=== PATIENT | female | born 1955 | race Caucasian/White ===

== ENCOUNTER 2022-10-22 00:59 | Inpatient (IN) ==
--- NOTE | 2022-10-22 01:17 | Emergency Department Note ---
History of Present Illness General Chief complaint: Unresponsive Stated complaint: UNRESPONSIVE Time Seen by Provider: 10/22/22 01:05 History of Present Illness 67-year-old female presents emergency department via EMS reportedly has been having explosive diarrhea today and states she was going to the bathroom for the 15th time today and fell over her walker on the way back to her bed. Patient was found to be hypotensive and reportedly altered by EMS. Patient does admit to drinking alcohol she states that she drinks alcohol daily. Patient denies any bloody stools vomiting of blood. Patient denies chest pain shortness of breath abdominal pain. There are no other mitigating or alleviating factors Home Medications Medication Instructions Recorded Confirmed Type hydrochlorothiazide 25 mg tablet 25 mg PO DAILY 10/22/22 10/22/22 History quetiapine 100 mg tablet 50 mg PO DAILY 10/22/22 10/22/22 History tramadol 50 mg tablet 50 mg PO UD PRN Pain 10/22/22 10/22/22 History Allergies Allergy/AdvReac Type Severity Reaction Status Date / Time No Known Allergies Allergy Unverified 01/09/14 03:26 Past Med/Surg History Medical History Cholelithiasis No pertinent family history Surgical History No pertinent past surgical history Social History Smoking Status: Unknown if ever smoked Feels Safe at Home: Yes Immunizations: Social history positive for alcohol Review of Systems A total of 10 systems reviewed and were otherwise negative Constitutional: + chills and + fatigue Respiratory: no cough Cardiovascular: no chest pain Gastrointestinal: + nausea and + diarrhea/loose stools; no abdominal pain Physical Exam Vital Signs Vital Signs - 24 hr 10/22/22 01:17 10/22/22 01:17 10/22/22 01:05 Temperature 36.6 C Temperature Source Oral Pulse Rate 88 101 H Pulse Rate [Finger] Pulse Rate from SpO2 Sensor 101 H Respiratory Rate 16 18 Blood Pressure 74/39 L Blood Pressure [Right Arm] Blood Pressure Mean 50 Blood Pressure Mean [Right Arm] Pulse Oximetry 91 98 Oxygen Delivery Method Room Air Room Air Sepsis Recent Fever Within 48 Hours Yes Sepsis New/Unexplained Change in Mental Status Yes Sepsis Action Taken by Nursing Physician Notified 10/22/22 01:09 10/22/22 01:09 10/22/22 01:10 Temperature Temperature Source Pulse Rate 99 H Pulse Rate [Finger] Pulse Rate from SpO2 Sensor Respiratory Rate 20 Blood Pressure 68/41 L 69/42 L Blood Pressure [Right Arm] Blood Pressure Mean 50 51 Blood Pressure Mean [Right Arm] Pulse Oximetry Oxygen Delivery Method Sepsis Recent Fever Within 48 Hours Sepsis New/Unexplained Change in Mental Status Sepsis Action Taken by Nursing 10/22/22 01:10 10/22/22 01:14 10/22/22 01:14 Temperature Temperature Source Pulse Rate 98 H 99 H Pulse Rate [Finger] Pulse Rate from SpO2 Sensor 95 H 100 H Respiratory Rate 20 20 Blood Pressure 62/41 L Blood Pressure [Right Arm] Blood Pressure Mean 48 Blood Pressure Mean [Right Arm] Pulse Oximetry 92 97 Oxygen Delivery Method Sepsis Recent Fever Within 48 Hours Sepsis New/Unexplained Change in Mental Status Sepsis Action Taken by Nursing 10/22/22 01:15 10/22/22 01:15 10/22/22 01:17 Temperature Temperature Source Pulse Rate 98 H Pulse Rate [Finger] Pulse Rate from SpO2 Sensor 98 H Respiratory Rate 19 Blood Pressure 62/38 L 63/41 L Blood Pressure [Right Arm] Blood Pressure Mean 46 48 Blood Pressure Mean [Right Arm] Pulse Oximetry 99 Oxygen Delivery Method Sepsis Recent Fever Within 48 Hours Sepsis New/Unexplained Change in Mental Status Sepsis Action Taken by Nursing 10/22/22 01:17 10/22/22 01:20 10/22/22 01:10 Temperature Temperature Source Pulse Rate 97 H 99 H 101 H Pulse Rate [Finger] Pulse Rate from SpO2 Sensor 97 H 98 H Respiratory Rate 19 17 Blood Pressure Blood Pressure [Right Arm] Blood Pressure Mean Blood Pressure Mean [Right Arm] Pulse Oximetry 94 91 Oxygen Delivery Method Sepsis Recent Fever Within 48 Hours Sepsis New/Unexplained Change in Mental Status Sepsis Action Taken by Nursing 10/22/22 02:33 10/22/22 02:51 10/22/22 03:00 Temperature Temperature Source Pulse Rate Pulse Rate [Finger] 102 H 105 H 103 H Pulse Rate from SpO2 Sensor Respiratory Rate 20 20 16 Blood Pressure Blood Pressure [Right Arm] 86/40 L 82/42 L 102/54 L Blood Pressure Mean Blood Pressure Mean [Right Arm] 55 55 70 Pulse Oximetry 92 96 Oxygen Delivery Method Room Air Room Air Room Air Sepsis Recent Fever Within 48 Hours Sepsis New/Unexplained Change in Mental Status Sepsis Action Taken by Nursing 10/22/22 02:45 10/22/22 03:00 10/22/22 03:17 Temperature Temperature Source Pulse Rate 104 H 103 H 101 H Pulse Rate [Finger] Pulse Rate from SpO2 Sensor Respiratory Rate 21 18 18 Blood Pressure 82/49 L 102/54 L 80/40 L Blood Pressure [Right Arm] Blood Pressure Mean 60 70 53 Blood Pressure Mean [Right Arm] Pulse Oximetry 92 92 91 Oxygen Delivery Method Room Air Room Air Room Air Sepsis Recent Fever Within 48 Hours Sepsis New/Unexplained Change in Mental Status Sepsis Action Taken by Nursing 10/22/22 03:30 10/22/22 03:46 Temperature Temperature Source Pulse Rate 104 H 108 H Pulse Rate [Finger] Pulse Rate from SpO2 Sensor Respiratory Rate 20 19 Blood Pressure 98/49 L 100/30 L Blood Pressure [Right Arm] Blood Pressure Mean 65 53 Blood Pressure Mean [Right Arm] Pulse Oximetry 99 96 Oxygen Delivery Method Room Air Room Air Sepsis Recent Fever Within 48 Hours Sepsis New/Unexplained Change in Mental Status Sepsis Action Taken by Nursing GENERAL: Patient is awake alert; ill-appearing, hypotensive EYES: The conjunctivae are clear. The pupils are round and reactive. EARS, NOSE, MOUTH AND THROAT: The nose is without any evidence of any deformity. Mucous membranes are moist. Tongue is midline. Head exam reveals no signs of trauma NECK: The neck is nontender and supple. RESPIRATORY: Normal respiratory effort is noted there is no evidence of wheezing rhonchi or rales CARDIOVASCULAR: Regular rate and rhythm noted there no murmurs rubs or gallops normal S1 normal S2. GASTROINTESTINAL: The abdomen is soft. Abdomen is nontender. BACK: No midline tenderness or or step-off noted range of motion in flexion extension as well as rotation no signs of muscle spasm noted MUSCULOSKELETAL/EXTREMITIES: There is no evidence of gross deformity full range of motion is noted in the hips and shoulders. SKIN: Patient is pale NEUROLOGIC: Patient is awake alert and oriented x3 strength is symmetric Procedures Central Line Placement Right Femoral: Time Out Performed: Yes Patient Placed on Monitor/Pulse Ox: Yes Prep: mask, gown and gloves Central Line Prep: Chlorhexidine scrub Local Anesthetic: lidocaine 2% Amount of anesthesia used (mL): 10 Ultrasound Used for Placement: No Central Line Lumen Inserted: triple Post Procedure: sutured in place, good blood return, all ports aspirated, flushed, capped and sterile dressing applied Patient Tolerated Procedure: well Complications: none Additional Comments: Patient verbally consented to central line, 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 Patient's blood pressure did improve after IV fluids. Time: 03:40 Consultations Consultation #1: [facility], [facility], near syncope Time: 03:41 Administered Medications Discontinued Medications Sodium Chloride (Nss 1000ml) 1,000 mls @ 999 mls/hr IV .[id number] BARBARA Stop: 10/22/22 03:15 Last Infusion: 10/22/22 03:23 Dose: 0 mls/hr Documented By: Admin: 10/22/22 02:25 Dose: 999 mls/hr Documented By: YURI(2) Infusion: 10/22/22 02:25 Dose: 0 mls/hr Documented By: NURYW(2) Admin: 10/22/22 01:23 Dose: 999 mls/hr Documented By: YURI(2) Piperacillin Sod/Tazobactam Sod (Zosyn) 4.5 gm in 120 mls @ 240 mls/hr IV NOW ONE Stop: 10/22/22 02:31 Last Infusion: 10/22/22 02:54 Dose: 0 mls/hr Documented By: Admin: 10/22/22 02:27 Dose: 240 mls/hr Documented By: ASW Ondansetron HCl (Ondansetron Inj 2 Mg/Ml 2 Ml Vial) Confirm Administered Dose 4 mg .ROUTE .STK-MED ONE Stop: 10/22/22 02:57 Last Admin: 10/22/22 03:23 Dose: 4 mg Documented By: ASW Critical Care Time Critical Care Time: Yes Total Critical Care Time: 45 I have personally spent greater than 45 minutes of critical care time in the direct management of this patient. This includes bedside care, interpretation of diagnostic studies, and testing, discussion with consultants, patient, and family members, and other required patient management activities. These minutes are in excess of all separately billable procedures. Medical Decision Making Medical Records Attestation: I reviewed the patient's medical records. Home Medications Current Medication List: was personally reviewed by me Laboratory Data Attestation: I reviewed the patient's lab results. Patient has an elevated lactate, has a low bicarb has not low pH consistent with lactic acidosis and sepsis dehydration 10/22/22 01:27 10/22/22 01:27 Lab Results 10/22/22 10/22/22 10/22/22 Range/Units 01:12 01:27 01:27 WBC 5.84 (4.8-10.8) K/ul RBC 3.17 L (4.20-5.40) M/uL Hgb 9.8 L (12.0-16.0) g/dl Hct 30.8 L (37.0-47.0) % MCV 97.2 (80.0-100.0) fL MCH 30.9 (25.0-34.0) pg MCHC 31.8 L (32.0-36.0) g/dL RDW Std Deviation 70.4 H (36.4-46.3) fL RDW Coeff of Cate 19.7 H (11.5-14.5) % Plt Count 204 (130-400) K/uL MPV 9.4 (9.4-12.4) fL Immature Gran % (Auto) 0.5 % Neut % (Auto) 74.2 % Lymph % (Auto) 10.1 % [place] % (Auto) 12.2 % Eos % (Auto) 2.7 % Baso % (Auto) 0.3 % Neut # (Auto) 4.33 (1.40-6.50) K/uL Lymph # (Auto) 0.59 L (1.2-3.4) K/uL [place] # (Auto) 0.71 H (0.11-0.59) K/uL Eos # (Auto) 0.16 (0-0.50) K/uL Baso # (Auto) 0.02 (0-0.2) K/uL Immature Gran # (Auto) 0.03 (0.01-0.20) K/uL PT 11.4 (9.0-12.0) Seconds INR 1.1 (0.9-1.1) APTT 21.2 (21.0-31.0) Seconds PTT Ratio 0.8 VBG pH (7.36-7.41) VBG pCO2 (38-50) mmHg VBG pO2 mmHg VBG HCO3 mmol/L VBG O2 Saturation % VBG Base Excess mEq/L Sodium (136-145) mmol/L Potassium Chloride (98-107) mmol/L Carbon Dioxide (21-32) mmol/L Anion Gap (3-11) BUN (6-23) mg/dl Creatinine (0.6-1.2) mg/dl Est Cr Clr Drug Dosing ml/min Est GFR ( Amer) ml/min Est GFR (Non-Af Amer) ml/min BUN/Creatinine Ratio (10-20) Glucose (70-99(Fasting)) mg/dl POC Glucose 81 (70-99) mg/dl Lactate (0.4-2.0) mmol/L Calcium (8.6-10.3) mg/dl Magnesium (1.7-2.4) mg/dl Total Bilirubin (0.2-1.0) mg/dl Direct Bilirubin AST ALT (7-52) U/L Alkaline Phosphatase (34-104) U/L Troponin I High Sens (0-14) pg/ml Total Protein (6.0-8.3) gm/dl Albumin (3.4-5.0) gm/dl Procalcitonin (0-0.5) ng/ml Urine Color Urine Appearance (Clear) Urine pH (4.5-7.5) Ur Specific Watts (1.000-1.030) Urine Protein (Negative) Urine Glucose (UA) (Negative) Urine Ketones (Negative) Urine Blood (Negative) Urine Nitrite (Negative) Urine Bilirubin (Negative) Urine Urobilinogen (Negative) Ur Leukocyte Esterase (Negative) Urine WBC (Auto) (0-5) /hpf Urine RBC (Auto) (0-4) /hpf U Hyaline Cast (Auto) (0-5) /lpf U Epithel Cells (Auto) (0-5) /lpf Urine Bacteria (Auto) (Negative) Stl C. diff Tox B Gene (Neg) Ethyl Alcohol mg/dL (<10.0) mg/dl SARS-CoV-2, RNA, NAAT (NEGATIVE) 10/22/22 10/22/22 10/22/22 Range/Units 01:27 01:27 01:27 WBC (4.8-10.8) K/ul RBC (4.20-5.40) M/uL Hgb (12.0-16.0) g/dl Hct (37.0-47.0) % MCV (80.0-100.0) fL MCH (25.0-34.0) pg MCHC (32.0-36.0) g/dL RDW Std Deviation (36.4-46.3) fL RDW Coeff of Cate (11.5-14.5) % Plt Count (130-400) K/uL MPV (9.4-12.4) fL Immature Gran % (Auto) % Neut % (Auto) % Lymph % (Auto) % [place] % (Auto) % Eos % (Auto) % Baso % (Auto) % Neut # (Auto) (1.40-6.50) K/uL Lymph # (Auto) (1.2-3.4) K/uL [place] # (Auto) (0.11-0.59) K/uL Eos # (Auto) (0-0.50) K/uL Baso # (Auto) (0-0.2) K/uL Immature Gran # (Auto) (0.01-0.20) K/uL PT (9.0-12.0) Seconds INR (0.9-1.1) APTT (21.0-31.0) Seconds PTT Ratio VBG pH (7.36-7.41) VBG pCO2 (38-50) mmHg VBG pO2 mmHg VBG HCO3 mmol/L VBG O2 Saturation % VBG Base Excess mEq/L Sodium 135 L (136-145) mmol/L Potassium TNP Chloride 98 (98-107) mmol/L Carbon Dioxide 8 L* (21-32) mmol/L Anion Gap 29 H (3-11) BUN 21 (6-23) mg/dl Creatinine 0.91 (0.6-1.2) mg/dl Est Cr Clr Drug Dosing 56.3 ml/min Est GFR ( Amer) 75.7 ml/min Est GFR (Non-Af Amer) 65.3 ml/min BUN/Creatinine Ratio 23.1 H (10-20) Glucose 86 (70-99(Fasting)) mg/dl POC Glucose (70-99) mg/dl Lactate (0.4-2.0) mmol/L Calcium 7.5 L (8.6-10.3) mg/dl Magnesium 1.8 (1.7-2.4) mg/dl Total Bilirubin 1.2 H (0.2-1.0) mg/dl Direct Bilirubin TNP AST TNP ALT 32 (7-52) U/L Alkaline Phosphatase 87 (34-104) U/L Troponin I High Sens 9.0 (0-14) pg/ml Total Protein 6.1 (6.0-8.3) gm/dl Albumin 3.7 (3.4-5.0) gm/dl Procalcitonin 0.34 (0-0.5) ng/ml Urine Color Urine Appearance (Clear) Urine pH (4.5-7.5) Ur Specific Watts (1.000-1.030) Urine Protein (Negative) Urine Glucose (UA) (Negative) Urine Ketones (Negative) Urine Blood (Negative) Urine Nitrite (Negative) Urine Bilirubin (Negative) Urine Urobilinogen (Negative) Ur Leukocyte Esterase (Negative) Urine WBC (Auto) (0-5) /hpf Urine RBC (Auto) (0-4) /hpf U Hyaline Cast (Auto) (0-5) /lpf U Epithel Cells (Auto) (0-5) /lpf Urine Bacteria (Auto) (Negative) Stl C. diff Tox B Gene (Neg) Ethyl Alcohol mg/dL 96.1 H (<10.0) mg/dl SARS-CoV-2, RNA, NAAT (NEGATIVE) 10/22/22 10/22/22 10/22/22 Range/Units 01:35 02:36 03:17 WBC (4.8-10.8) K/ul RBC (4.20-5.40) M/uL Hgb (12.0-16.0) g/dl Hct (37.0-47.0) % MCV (80.0-100.0) fL MCH (25.0-34.0) pg MCHC (32.0-36.0) g/dL RDW Std Deviation (36.4-46.3) fL RDW Coeff of Cate (11.5-14.5) % Plt Count (130-400) K/uL MPV (9.4-12.4) fL Immature Gran % (Auto) % Neut % (Auto) % Lymph % (Auto) % [place] % (Auto) % Eos % (Auto) % Baso % (Auto) % Neut # (Auto) (1.40-6.50) K/uL Lymph # (Auto) (1.2-3.4) K/uL [place] # (Auto) (0.11-0.59) K/uL Eos # (Auto) (0-0.50) K/uL Baso # (Auto) (0-0.2) K/uL Immature Gran # (Auto) (0.01-0.20) K/uL PT (9.0-12.0) Seconds INR (0.9-1.1) APTT (21.0-31.0) Seconds PTT Ratio VBG pH (7.36-7.41) VBG pCO2 (38-50) mmHg VBG pO2 mmHg VBG HCO3 mmol/L VBG O2 Saturation % VBG Base Excess mEq/L Sodium (136-145) mmol/L Potassium 4.5 Chloride (98-107) mmol/L Carbon Dioxide (21-32) mmol/L Anion Gap (3-11) BUN (6-23) mg/dl Creatinine (0.6-1.2) mg/dl Est Cr Clr Drug Dosing ml/min Est GFR ( Amer) ml/min Est GFR (Non-Af Amer) ml/min BUN/Creatinine Ratio (10-20) Glucose (70-99(Fasting)) mg/dl POC Glucose (70-99) mg/dl Lactate 6.9 H* (0.4-2.0) mmol/L Calcium (8.6-10.3) mg/dl Magnesium (1.7-2.4) mg/dl Total Bilirubin (0.2-1.0) mg/dl Direct Bilirubin 0.4 H AST 52 H ALT (7-52) U/L Alkaline Phosphatase (34-104) U/L Troponin I High Sens (0-14) pg/ml Total Protein (6.0-8.3) gm/dl Albumin (3.4-5.0) gm/dl Procalcitonin (0-0.5) ng/ml Urine Color Dark Yellow Urine Appearance Clear (Clear) Urine pH 5.5 (4.5-7.5) Ur Specific Watts 1.018 (1.000-1.030) Urine Protein Negative (Negative) Urine Glucose (UA) Negative (Negative) Urine Ketones 3+ H (Negative) Urine Blood Negative (Negative) Urine Nitrite Negative (Negative) Urine Bilirubin 1+ H (Negative) Urine Urobilinogen Negative (Negative) Ur Leukocyte Esterase Trace H (Negative) Urine WBC (Auto) 1-5 (0-5) /hpf Urine RBC (Auto) 0-4 (0-4) /hpf U Hyaline Cast (Auto) 10-30 H (0-5) /lpf U Epithel Cells (Auto) >30 H (0-5) /lpf Urine Bacteria (Auto) Negative (Negative) Stl C. diff Tox B Gene (Neg) Ethyl Alcohol mg/dL (<10.0) mg/dl SARS-CoV-2, RNA, NAAT (NEGATIVE) 10/22/22 10/22/22 10/22/22 Range/Units 03:17 03:18 03:28 WBC (4.8-10.8) K/ul RBC (4.20-5.40) M/uL Hgb (12.0-16.0) g/dl Hct (37.0-47.0) % MCV (80.0-100.0) fL MCH (25.0-34.0) pg MCHC (32.0-36.0) g/dL RDW Std Deviation (36.4-46.3) fL RDW Coeff of Cate (11.5-14.5) % Plt Count (130-400) K/uL MPV (9.4-12.4) fL Immature Gran % (Auto) % Neut % (Auto) % Lymph % (Auto) % [place] % (Auto) % Eos % (Auto) % Baso % (Auto) % Neut # (Auto) (1.40-6.50) K/uL Lymph # (Auto) (1.2-3.4) K/uL [place] # (Auto) (0.11-0.59) K/uL Eos # (Auto) (0-0.50) K/uL Baso # (Auto) (0-0.2) K/uL Immature Gran # (Auto) (0.01-0.20) K/uL PT (9.0-12.0) Seconds INR (0.9-1.1) APTT (21.0-31.0) Seconds PTT Ratio VBG pH 7.10 L (7.36-7.41) VBG pCO2 24 L (38-50) mmHg VBG pO2 49 mmHg VBG HCO3 8 mmol/L VBG O2 Saturation 69.9 % VBG Base Excess -20.6 mEq/L Sodium (136-145) mmol/L Potassium Chloride (98-107) mmol/L Carbon Dioxide (21-32) mmol/L Anion Gap (3-11) BUN (6-23) mg/dl Creatinine (0.6-1.2) mg/dl Est Cr Clr Drug Dosing ml/min Est GFR ( Amer) ml/min Est GFR (Non-Af Amer) ml/min BUN/Creatinine Ratio (10-20) Glucose (70-99(Fasting)) mg/dl POC Glucose (70-99) mg/dl Lactate 6.8 H* (0.4-2.0) mmol/L Calcium (8.6-10.3) mg/dl Magnesium (1.7-2.4) mg/dl Total Bilirubin (0.2-1.0) mg/dl Direct Bilirubin AST ALT (7-52) U/L Alkaline Phosphatase (34-104) U/L Troponin I High Sens (0-14) pg/ml Total Protein (6.0-8.3) gm/dl Albumin (3.4-5.0) gm/dl Procalcitonin (0-0.5) ng/ml Urine Color Urine Appearance (Clear) Urine pH (4.5-7.5) Ur Specific Watts (1.000-1.030) Urine Protein (Negative) Urine Glucose (UA) (Negative) Urine Ketones (Negative) Urine Blood (Negative) Urine Nitrite (Negative) Urine Bilirubin (Negative) Urine Urobilinogen (Negative) Ur Leukocyte Esterase (Negative) Urine WBC (Auto) (0-5) /hpf Urine RBC (Auto) (0-4) /hpf U Hyaline Cast (Auto) (0-5) /lpf U Epithel Cells (Auto) (0-5) /lpf Urine Bacteria (Auto) (Negative) Stl C. diff Tox B Gene (Neg) Ethyl Alcohol mg/dL (<10.0) mg/dl SARS-CoV-2, RNA, NAAT NEGATIVE (NEGATIVE) 10/22/22 Range/Units 04:26 WBC (4.8-10.8) K/ul RBC (4.20-5.40) M/uL Hgb (12.0-16.0) g/dl Hct (37.0-47.0) % MCV (80.0-100.0) fL MCH (25.0-34.0) pg MCHC (32.0-36.0) g/dL RDW Std Deviation (36.4-46.3) fL RDW Coeff of Cate (11.5-14.5) % Plt Count (130-400) K/uL MPV (9.4-12.4) fL Immature Gran % (Auto) % Neut % (Auto) % Lymph % (Auto) % [place] % (Auto) % Eos % (Auto) % Baso % (Auto) % Neut # (Auto) (1.40-6.50) K/uL Lymph # (Auto) (1.2-3.4) K/uL [place] # (Auto) (0.11-0.59) K/uL Eos # (Auto) (0-0.50) K/uL Baso # (Auto) (0-0.2) K/uL Immature Gran # (Auto) (0.01-0.20) K/uL PT (9.0-12.0) Seconds INR (0.9-1.1) APTT (21.0-31.0) Seconds PTT Ratio VBG pH (7.36-7.41) VBG pCO2 (38-50) mmHg VBG pO2 mmHg VBG HCO3 mmol/L VBG O2 Saturation % VBG Base Excess mEq/L Sodium (136-145) mmol/L Potassium Chloride (98-107) mmol/L Carbon Dioxide (21-32) mmol/L Anion Gap (3-11) BUN (6-23) mg/dl Creatinine (0.6-1.2) mg/dl Est Cr Clr Drug Dosing ml/min Est GFR ( Amer) ml/min Est GFR (Non-Af Amer) ml/min BUN/Creatinine Ratio (10-20) Glucose (70-99(Fasting)) mg/dl POC Glucose (70-99) mg/dl Lactate (0.4-2.0) mmol/L Calcium (8.6-10.3) mg/dl Magnesium (1.7-2.4) mg/dl Total Bilirubin (0.2-1.0) mg/dl Direct Bilirubin AST ALT (7-52) U/L Alkaline Phosphatase (34-104) U/L Troponin I High Sens (0-14) pg/ml Total Protein (6.0-8.3) gm/dl Albumin (3.4-5.0) gm/dl Procalcitonin (0-0.5) ng/ml Urine Color Urine Appearance (Clear) Urine pH (4.5-7.5) Ur Specific Watts (1.000-1.030) Urine Protein (Negative) Urine Glucose (UA) (Negative) Urine Ketones (Negative) Urine Blood (Negative) Urine Nitrite (Negative) Urine Bilirubin (Negative) Urine Urobilinogen (Negative) Ur Leukocyte Esterase (Negative) Urine WBC (Auto) (0-5) /hpf Urine RBC (Auto) (0-4) /hpf U Hyaline Cast (Auto) (0-5) /lpf U Epithel Cells (Auto) (0-5) /lpf Urine Bacteria (Auto) (Negative) Stl C. diff Tox B Gene Negative Cdiff Gene (Neg) Ethyl Alcohol mg/dL (<10.0) mg/dl SARS-CoV-2, RNA, NAAT (NEGATIVE) Imaging Data Attestation: I personally reviewed and interpreted this imaging study as follows: My Impression: CT of the brain interpreted by me as negative intracranial hemorrhage Radiologist's Impression: Head CT 10/22/22 01:11 Exam(s): CT HEAD Without Contrast EXAM: CT Head Without Intravenous Contrast CLINICAL HISTORY: Reason for exam: fall. TECHNIQUE: Axial computed tomography images of the head/brain without intravenous contrast. Automated exposure control was utilized for the study. A dose lowering technique was utilized adhering to the principles of ALARA. COMPARISON: CT head performed 09/27/22 FINDINGS: Limitations: Exam limited due to lack of coronal and sagittal reformatted images. Within this constraint: Brain: No acute intracranial hemorrhage, mass-effect or midline shift. No major vascular territory infarct. Mild white matter disease. No edema. Ventricles: No ventriculomegaly. Bones/joints: No acute fracture. Soft tissues: Unremarkable. Sinuses: Unremarkable as visualized. No acute sinusitis. Mastoid air cells: Unremarkable as visualized. No mastoid effusion. IMPRESSION: Exam limited due to lack of coronal and sagittal reformatted images. Within this constraint: No acute intracranial pathology. Electronically signed by: Home Villegas M.D. 10/22/22 05:26 AM ECG Data Attestation: I personally reviewed and interpreted this ECG as follows: Additional Comments: EKG interpreted by me sinus tachycardia rate of [address]-T change poor baseline no obvious ST segment elevation or depression Telemetry was ordered by me, interpreted as sinus tachycardia rate of 101 Blood Pressure Blood Pressure Findings: Low blood pressure MDM Narrative Medical decision making differential diagnosis includes syncope, near syncope, vasovagal syncope, infectious diarrhea, electrolyte abnormality, dehydration, trauma, sepsis Plan is to check labs, CTs, IV hydrate EMS report was reviewed by me External medical records were reviewed by me Patient was started on IV fluids, patient was started on IV antibiotics empirically, patient is hypotensive, patient could be in septic shock, patient had a central line placed by me, the case was discussed with the [facility] hospitalist for admission. Patient has significant dehydration likely due to alcohol and diarrhea. Impression & Plan Syncope, Sepsis, Diarrhea, Alcohol intoxication Discharge Plan Visit Data Chief Complaint: Unresponsive Stated Complaint: UNRESPONSIVE ED Provider: Pardeep Palafox Discharge Problem: Syncope, Sepsis, Diarrhea, Alcohol intoxication Patient Disposition: Admitted As Inpatient Forms Stand Alone Forms: [facility] Prescriptions Prescriptions: No Action tramadol 50 mg tablet 50 mg PO UD PRN (Reason: Pain) quetiapine 100 mg tablet 50 mg PO DAILY hydrochlorothiazide 25 mg tablet 25 mg PO DAILY Referrals Referrals: PCP,NO [Primary Care Provider] -
[2022-10-22] MEDS: SODIUM CHLORIDE 0.9% 1000ML 1,000 ML IV SCH ×2 (01:23→02:25)
[2022-10-22 01:56] LABS: Basophils # (auto) 0.02 K/uL (0-0.2); Basophils % (auto) 0.3 %; Eosinophils # (auto) 0.16 K/uL (0-0.50); Eosinophils % (auto) 2.7 %; Hematocrit (blood only) 30.8 % (37.0-47.0); Hemoglobin 9.8 g/dl (12.0-16.0); Immature Granulocytes # (auto) 0.03 K/uL (0.01-0.20); Immature Granulocytes % (auto) 0.5 %; Lymphocytes # (auto) 0.59 K/uL (1.2-3.4); Lymphocytes % (auto) 10.1 %; Mean Corpuscular Hemoglobin 30.9 pg (25.0-34.0); Mean Corpuscular Hgb Conc 31.8 g/dL (32.0-36.0); Mean Corpuscular Volume 97.2 fL (80.0-100.0); Mean Platelet Volume 9.4 fL (9.4-12.4); Monocytes # (auto) 0.71 K/uL (0.11-0.59); Monocytes % (auto) 12.2 %; Neutrophils # (auto) 4.33 K/uL (1.40-6.50); Neutrophils % (auto) 74.2 %; Platelet Count 204 K/uL (130-400); RDW Coefficient of Variation 19.7 % (11.5-14.5); RDW Standard Deviation 70.4 fL (36.4-46.3); Red Blood Count 3.17 M/uL (4.20-5.40); White Blood Count 5.84 K/ul (4.8-10.8)
[2022-10-22] MEDS ORDERED: PIPERACILLIN/TAZOBACTAM 4.5 GM/120 ML BAG IV ONE (02:02)
[2022-10-22 02:19] LABS: Alanine Aminotransferase 32 U/L (7-52); Albumin Level 3.7 gm/dl (3.4-5.0); Alkaline Phosphatase 87 U/L (34-104); Anion Gap 29 (3-11); BUN Creatinine Ratio 23.1 (10-20); Bilirubin,Total 1.2 mg/dl (0.2-1.0); Blood Urea Nitrogen 21 mg/dl (6-23); Calcium 7.5 mg/dl (8.6-10.3); Carbon Dioxide 8 mmol/L (21-32); Chloride 98 mmol/L (98-107); Creatinine Clr Calc Pharmacy 56.3 ml/min; Est GFR (African American) 75.7 ml/min; Est GFR (Non-African American) 65.3 ml/min; Glucose 86 mg/dl (70-99(Fasting)); Magnesium 1.8 mg/dl (1.7-2.4); Sodium 135 mmol/L (136-145); Total Protein 6.1 gm/dl (6.0-8.3)
[2022-10-22 02:53] LABS: Appearance Urine Clear (Clear); Bacteria Urine Automated Negative (Negative); Blood Urine Negative (Negative); Color Urine Dark Yellow; Epithelial Cell Urine Auto >30 /lpf (0-5); Glucose Urine UA Negative (Negative); Ketones Urine 3+ (Negative); Leukocyte Esterase Urine Trace (Negative); Nitrite Urine Negative (Negative); Protein Urine Negative (Negative); RBC Urine Automated 0-4 /hpf (0-4); Specific Gravity Urine 1.018 (1.000-1.030); Urobilinogen Urine Negative (Negative); pH Urine 5.5 (4.5-7.5)
[2022-10-22 02:53] LABS: INR 1.1 (0.9-1.1); Partial Thromboplastin Ratio 0.8; Partial Thromboplastin Time 21.2 Seconds (21.0-31.0); Prothrombin Time 11.4 Seconds (9.0-12.0)
[2022-10-22 02:56] LABS: Bilirubin Urine 1+ (Negative)
[2022-10-22] MEDS ORDERED: ONDANSETRON INJ 2 MG/ML 2 ML VIAL ONE (02:56)
[2022-10-22 03:30] LABS: Base Excess VBG -20.6 mEq/L; HCO3 VBG 8 mmol/L; Oxygen Saturation VBG 69.9 %; PCO2 VBG 24 mmHg (38-50); PO2 VBG 49 mmHg
[2022-10-22 03:51] LABS: Bilirubin Direct 0.4 mg/dl (0-0.2); Potassium 4.5 mmol/L (3.5-5.1)
[2022-10-22] MEDS ORDERED: LORazepam 2 MG/1 ML VIAL IV STA (03:51)
--- NOTE | 2022-10-22 05:27 | CT Scan Report ---
Exam(s): CT HEAD Without Contrast EXAM: CT Head Without Intravenous Contrast CLINICAL HISTORY: Reason for exam: fall. TECHNIQUE: Axial computed tomography images of the head/brain without intravenous contrast. Automated exposure control was utilized for the study. A dose lowering technique was utilized adhering to the principles of ALARA. COMPARISON: CT head performed 09/27/22 FINDINGS: Limitations: Exam limited due to lack of coronal and sagittal reformatted images. Within this constraint: Brain: No acute intracranial hemorrhage, mass-effect or midline shift. No major vascular territory infarct. Mild white matter disease. No edema. Ventricles: No ventriculomegaly. Bones/joints: No acute fracture. Soft tissues: Unremarkable. Sinuses: Unremarkable as visualized. No acute sinusitis. Mastoid air cells: Unremarkable as visualized. No mastoid effusion. IMPRESSION: Exam limited due to lack of coronal and sagittal reformatted images. Within this constraint: No acute intracranial pathology. Electronically signed by: Home Villegas M.D. 10/22/22 05:26 AM
--- NOTE | 2022-10-22 05:29 | CT Scan Report ---
Exam(s): CT FACIAL Without Contrast EXAM: CT Maxillofacial Without Intravenous Contrast CLINICAL HISTORY: Reason for exam: fall. TECHNIQUE: Axial computed tomography images of the face without intravenous contrast. Automated exposure control was utilized for the study. A dose lowering technique was utilized adhering to the principles of ALARA. COMPARISON: No relevant prior studies available. FINDINGS: Evaluation of the soft tissues limited due to only bone kernel images sent for interpretation. Within this constraint: Bones/joints: No acute fracture. Soft tissues: No acute findings. Orbits: Unremarkable. Sinuses: Unremarkable. No air-fluid levels. IMPRESSION: No acute findings in the face. Electronically signed by: Home Villegas M.D. 10/22/22 05:28 AM
--- NOTE | 2022-10-22 05:32 | CT Scan Report ---
Exam(s): CT C SPINE EXAM: CT Cervical Spine Without Intravenous Contrast CLINICAL HISTORY: Reason for exam: fall. TECHNIQUE: Axial computed tomography images of the cervical spine without intravenous contrast. Automated exposure control was utilized for the study. A dose lowering technique was utilized adhering to the principles of ALARA. COMPARISON: No relevant prior studies available. FINDINGS: Evaluation of the soft tissues limited due to lack of soft tissue kernel images. Within this constraint: No acute fracture or traumatic subluxation. No significant spinal canal or neuroforaminal stenosis. The prevertebral and paraspinal soft tissues are grossly unremarkable. Visualized lung apices are clear. IMPRESSION: No acute fracture or traumatic subluxation. Electronically signed by: Home Villegas M.D. 10/22/22 05:31 AM
--- NOTE | 2022-10-22 05:40 | History & Physical Report ---
Date of Service October 22, 2022 Assessment & Plan (1) Diarrhea: Plan: 67-year-old female presenting with 2 to 3 days of profuse, watery diarrhea, reported up to 15 bowel movements per day. She is tachycardic and hypotensive. Appears clinically dry on physical exam. Lab values as above significant for anion gap metabolic acidosis with lactate = 6.9, serum bicarbonate = 8. Renal function is intact as are electrolytes. Patient's blood pressure and heart rate have improved with IV fluids administered in the ER. -Admit to PCU -Check stool PCR, culture and C. difficile Continue IV fluid resuscitation with isotonic bicarb x 1L -Monitor BMP q 12h with next at 14:00 -Repeat Lactate (2) Syncope: Plan: Likely secondary to rapid volume loss in the setting of profuse, watery diarrhea. Patient hypotensive and tachycardic upon arrival now improving with administration of IV fluid Continue IV fluid resuscitation Fall precautions (3) Alcohol use disorder: Plan: Patient reports drinking 8-10 rum drinks daily with last being 10/20/2022 at 2100. She does have history of alcohol withdrawal. Alcohol level presently 96.1 -Banana bag ordered OLGA S at risk protocol Continue thiamine and folic acid daily History of Present Illness Chief Complaint: Diarrhea, near syncope Primary Care Provider: NO PCP Pretty Nielsen Is a 68-year-old female with history of hypertension, depression and daily heavy alcohol use presenting from home with several days of profuse, watery diarrhea (15+ episodes daily), dizziness, near syncope, nausea, decreased oral intake. Patient tripped on her walker and fell prior to arrival. No LOC. Hypotensive by EMS - 60's/40's patient reports more than 15 liquid bowel movements daily patient denies travel, recent anabiotic use, recent hospitalization, or sick contacts. She reports she has not had anything to eat for several days. Patient drinks alcohol daily. She drinks approximately 8-10 rum beverages per day with last drink being 10/21/2022 at 2100. She has history of alcohol withdrawal symptoms. No seizure or DTs. In the ER patient tachycardic, hypotensive. She was administered IV fluids. She did lose her peripheral IV access and had a right femoral central venous catheter placed by the ER attending. Blood pressure did improve after administration of IV fluid. Presently 107/52. Allergies Allergy/AdvReac Type Severity Reaction Status Date / Time No Known Allergies Allergy Unverified 01/09/14 03:26 Home Medications Medication Instructions Recorded Confirmed Type hydrochlorothiazide 25 mg tablet 25 mg PO DAILY 10/22/22 10/22/22 History quetiapine 100 mg tablet 50 mg PO DAILY 10/22/22 10/22/22 History tramadol 50 mg tablet 50 mg PO UD PRN Pain 10/22/22 10/22/22 History Past Med/Surg History Medical History (Updated 10/22/22 @ 05:48 by Amanda Lovell DO) Cholelithiasis No pertinent family history Surgical History (Updated 10/22/22 @ 05:47 by Amanda Lovell DO) H/O: hysterectomy History of cholecystectomy Social History Smoking Status: Unknown if ever smoked Feels Safe at Home: Yes Review of Systems Review of Systems: All systems reviewed & are unremarkable except as noted in HPI & below Physical Exam Physical Exam: General: patient resting comfortably, NAD, non-toxic in appearance, AA&O x 4 Skin: warm, dry, intact, no rashes or lesions HEENT: NC/AT, PERRL, EOMI, anicteric sclera, conjunctiva without injection, external ear normal to inspection and nontender, nares patent, moist DRY membranes, dentition intact, no oropharyngeal lesions, neck supple, trachea midline, no LAD, no thyromegaly, no JVD Heart: +S1/S2, regular, tachycardic, no m/r/g Lungs: equal air entry bilaterally, no rales/rhonchi/wheezes Abd: +BS, soft, NT/ND, no masses/organomegaly/ascites Ext: warm, 2+ pulses in UE/LE bilaterally, no clubbing/cyanosis or edema Neuro: nonfocal, patient AA&O x 4, speech intact, no facial droop, moving all extremities on command with equal strength 5/5 Right groin CVC in place, no bleeding or hematoma Results & Data Results & Data Vital Signs (Past 12 Hours) Vital Signs Temp Pulse Pulse Resp BP BP Pulse Ox 10/22/22 05:15 103 H 22 107/52 L 98 10/22/22 05:00 104 H 21 94/46 L 99 10/22/22 04:45 91/52 L 10/22/22 04:30 91/50 L 10/22/22 04:15 101/56 L 10/22/22 04:00 92/55 L 10/22/22 03:58 88/50 L 10/22/22 03:46 108 H 19 100/30 L 96 10/22/22 03:30 104 H 20 98/49 L 99 10/22/22 03:17 101 H 18 80/40 L 91 10/22/22 03:00 103 H 18 102/54 L 92 10/22/22 02:45 104 H 21 82/49 L 92 10/22/22 03:00 103 H 16 102/54 L 96 10/22/22 02:51 105 H 20 82/42 L 10/22/22 02:33 102 H 20 86/40 L 92 10/22/22 01:10 101 H 10/22/22 01:20 99 H 17 91 10/22/22 01:17 97 H 19 94 10/22/22 01:17 63/41 L 10/22/22 01:15 98 H 19 99 10/22/22 01:15 62/38 L 10/22/22 01:14 62/41 L 10/22/22 01:14 99 H 20 97 10/22/22 01:10 98 H 20 92 10/22/22 01:10 69/42 L 10/22/22 01:09 68/41 L 10/22/22 01:09 99 H 20 10/22/22 01:05 101 H 18 98 10/22/22 01:17 10/22/22 01:17 36.6 C 88 16 74/39 L 91 O2 Del Method 10/22/22 05:15 Room Air 10/22/22 05:00 Room Air 10/22/22 04:45 10/22/22 04:30 10/22/22 04:15 10/22/22 04:00 10/22/22 03:58 10/22/22 03:46 Room Air 10/22/22 03:30 Room Air 10/22/22 03:17 Room Air 10/22/22 03:00 Room Air 10/22/22 02:45 Room Air 10/22/22 03:00 Room Air 10/22/22 02:51 Room Air 10/22/22 02:33 Room Air 04/18/23 01:10 10/22/22 01:20 10/22/22 01:17 10/22/22 01:17 10/22/22 01:15 10/22/22 01:15 10/22/22 01:14 10/22/22 01:14 10/22/22 01:10 10/22/22 01:10 10/22/22 01:09 10/22/22 01:09 10/22/22 01:05 10/22/22 01:17 Room Air 10/22/22 01:17 Room Air Laboratory Results Laboratory Results WBC 5.84 K/ul (4.8-10.8) 10/22/22 01:27 RBC 3.17 M/uL (4.20-5.40) L 10/22/22 01:27 Hgb 9.8 g/dl (12.0-16.0) L 10/22/22 01:27 Hct 30.8 % (37.0-47.0) L 10/22/22 01:27 MCV 97.2 fL (80.0-100.0) 10/22/22 01:27 MCH 30.9 pg (25.0-34.0) 10/22/22 01:27 MCHC 31.8 g/dL (32.0-36.0) L 10/22/22 01:27 RDW Std Deviation 70.4 fL (36.4-46.3) H 10/22/22 01:27 RDW Coeff of Cate 19.7 % (11.5-14.5) H 10/22/22 01:27 Plt Count 204 K/uL (130-400) 10/22/22 01:27 MPV 9.4 fL (9.4-12.4) 10/22/22 01:27 Immature Gran % (Auto) 0.5 % 10/22/22 01:27 Neut % (Auto) 74.2 % 10/22/22 01:27 Lymph % (Auto) 10.1 % 10/22/22 01:27 Marion % (Auto) 12.2 % 10/22/22 01:27 Eos % (Auto) 2.7 % 10/22/22 01:27 Baso % (Auto) 0.3 % 10/22/22 01:27 Neut # (Auto) 4.33 K/uL (1.40-6.50) 10/22/22 01: Lymph # (Auto) 0.59 K/uL (1.2-3.4) L 10/22/22 01:27 Marion # (Auto) 0.71 K/uL (0.11-0.59) H 10/22/22 01: Eos # (Auto) 0.16 K/uL (0-0.50) 10/22/22 01: Baso # (Auto) 0.02 K/uL (0-0.2) 10/22/22 01: Immature Gran # (Auto) 0.03 K/uL (0.01-0.20) 10/22/22 01: PT 11.4 Seconds (9.0-12.0) 10/22/22 01: INR 1.1 (0.9-1.1) 10/22/22 01: APTT 21.2 Seconds (21.0-31.0) 10/22/22 01: PTT Ratio 0.8 10/22/22 01: VBG pH 7.10 (7.36-7.41) L 10/22/22 03:17 VBG pCO2 24 mmHg (38-50) L 10/22/22 03:17 VBG pO2 49 mmHg 10/22/22 03:17 VBG HCO3 8 mmol/L 10/22/22 03:17 VBG O2 Saturation 69.9 % 10/22/22 03:17 VBG Base Excess -20.6 mEq/L 10/22/22 03:17 Sodium 135 mmol/L (136-145) L 10/22/22 01: Potassium 4.5 mmol/L (3.5-5.1) 10/22/22 03:17 Chloride 98 mmol/L (98-107) 10/22/22 01: Carbon Dioxide 8 mmol/L (21-32) L* 10/22/22 01: Anion Gap 29 (3-11) H 10/22/22 01:27 BUN 21 mg/dl (6-23) 10/22/22 01: Creatinine 0.91 mg/dl (0.6-1.2) 10/22/22 01: Est Cr Clr Drug Dosing 56.3 ml/min 10/22/22 01:27 Est GFR ( Amer) 75.7 ml/min 10/22/22 01:27 Est GFR (Non-Af Amer) 65.3 ml/min 10/22/22 01:27 BUN/Creatinine Ratio 23.1 (10-20) H 10/22/22 01:27 Glucose 86 mg/dl (70-99(Fasting)) 10/22/22 01:27 POC Glucose 81 mg/dl (70-99) 10/22/22 01:12 Lactate 6.8 mmol/L (0.4-2.0) H* 10/22/22 03:18 Calcium 7.5 mg/dl (8.6-10.3) L 10/22/22 01:27 Magnesium 1.8 mg/dl (1.7-2.4) 10/22/22 01:27 Total Bilirubin 1.2 mg/dl (0.2-1.0) H 10/22/22 01:27 Direct Bilirubin 0.4 mg/dl (0-0.2) H 10/22/22 03:17 AST 52 U/L (13-39) H 10/22/22 03:17 ALT 32 U/L (7-52) 10/22/22 01:27 Alkaline Phosphatase 87 U/L (34-104) 10/22/22 01:27 Troponin I High Sens 9.0 pg/ml (0-14) 10/22/22 01:27 Total Protein 6.1 gm/dl (6.0-8.3) 10/22/22 01:27 Albumin 3.7 gm/dl (3.4-5.0) 10/22/22 01:27 Procalcitonin 0.34 ng/ml (0-0.5) 10/22/22 01:27 Urine Color Dark Yellow 10/22/22 02:36 Urine Appearance Clear (Clear) 10/22/22 02:36 Urine pH 5.5 (4.5-7.5) 10/22/22 02:36 Ur Specific [place] 1.018 (1.000-1.030) 10/22/22 02:36 Urine Protein Negative (Negative) 10/22/22 02:36 Urine Glucose (UA) Negative (Negative) 10/22/22 02:36 Urine Ketones 3+ (Negative) H 10/22/22 02:36 Urine Blood Negative (Negative) 10/22/22 02:36 Urine Nitrite Negative (Negative) 10/22/22 02:36 Urine Bilirubin 1+ (Negative) H 10/22/22 02:36 Urine Urobilinogen Negative (Negative) 10/22/22 02:36 Ur Leukocyte Esterase Trace (Negative) H 10/22/22 02:36 Urine WBC (Auto) 1-5 /hpf (0-5) 10/22/22 02:36 Urine RBC (Auto) 0-4 /hpf (0-4) 10/22/22 02:36 U Hyaline Cast (Auto) 10-30 /lpf (0-5) H 10/22/22 02:36 U Epithel Cells (Auto) >30 /lpf (0-5) H 10/22/22 02:36 Urine Bacteria (Auto) Negative (Negative) 10/22/22 02:36 Stl C. diff Tox B Gene Negative Cdiff Gene (Neg) 10/22/22 04:26 Ethyl Alcohol mg/dL 96.1 mg/dl (<10.0) H 10/22/22 01:27 SARS-CoV-2, RNA, NAAT NEGATIVE (NEGATIVE) 10/22/22 03:[address] 10/22/22 01:11 Exam(s): CT C SPINE EXAM: CT Cervical Spine Without Intravenous Contrast CLINICAL HISTORY: Reason for exam: fall. TECHNIQUE: Axial computed tomography images of the cervical spine without intravenous contrast. Automated exposure control was utilized for the study. A dose lowering technique was utilized adhering to the principles of ALARA. COMPARISON: No relevant prior studies available. FINDINGS: Evaluation of the soft tissues limited due to lack of soft tissue kernel images. Within this constraint: No acute fracture or traumatic subluxation. No significant spinal canal or neuroforaminal stenosis. The prevertebral and paraspinal soft tissues are grossly unremarkable. Visualized lung apices are clear. IMPRESSION: No acute fracture or traumatic subluxation. Electronically signed by: Home Villegas M.D. 10/22/22 05:[address] 10/22/22 01:11 Exam(s): CT FACIAL Without Contrast EXAM: CT Maxillofacial Without Intravenous Contrast CLINICAL HISTORY: Reason for exam: fall. TECHNIQUE: Axial computed tomography images of the face without intravenous contrast. Automated exposure control was utilized for the study. A dose lowering technique was utilized adhering to the principles of ALARA. COMPARISON: No relevant prior studies available. FINDINGS: Evaluation of the soft tissues limited due to only bone kernel images sent for interpretation. Within this constraint: Bones/joints: No acute fracture. Soft tissues: No acute findings. Orbits: Unremarkable. Sinuses: Unremarkable. No air-fluid levels. IMPRESSION: No acute findings in the face. Electronically signed by: Home Villegas M.D. 10/22/22 05:[address] 10/22/22 01:11 Exam(s): CT HEAD Without Contrast EXAM: CT Head Without Intravenous Contrast CLINICAL HISTORY: Reason for exam: fall. TECHNIQUE: Axial computed tomography images of the head/brain without intravenous contrast. Automated exposure control was utilized for the study. A dose lowering technique was utilized adhering to the principles of ALARA. COMPARISON: CT head performed 09/27/22 FINDINGS: Limitations: Exam limited due to lack of coronal and sagittal reformatted images. Within this constraint: Brain: No acute intracranial hemorrhage, mass-effect or midline shift. No major vascular territory infarct. Mild white matter disease. No edema. Ventricles: No ventriculomegaly. Bones/joints: No acute fracture. Soft tissues: Unremarkable. Sinuses: Unremarkable as visualized. No acute sinusitis. Mastoid air cells: Unremarkable as visualized. No mastoid effusion. IMPRESSION: Exam limited due to lack of coronal and sagittal reformatted images. Within this constraint: No acute intracranial pathology. Electronically signed by: Home Villegas M.D. 10/22/22 05:26 AM PG Care Time/CCT Total # of Minutes Spent Total Time Spent with Patient: Total time spent is greater than 50% in coordination of care (as documented) at patient's floor/unit and/or counseling patient: Coding Level of Care Code 72603 INT INP/OBS CARE 2/55MIN Diagnoses Diarrhea R19.7 Syncope R55 Alcohol use disorder F10.90
[2022-10-22 05:51] LABS: Adenovirus F 40/41 PCR Not Detected (NotDetected); Astrovirus PCR Not Detected (NotDetected); Campylobacter PCR Not Detected (NotDetected); Cryptosporidium PCR Not Detected (NotDetected); Cyclospora cayetanensis PCR Not Detected (NotDetected); Entamoeba histolytica PCR Not Detected (NotDetected); Enteroaggregative E.coli(EAEC) Not Detected (NotDetected); Enteropathogenic E.coli (EPEC) Not Detected (NotDetected); Enterotoxigenic E.coli (ETEC) Not Detected (NotDetected); Giardia lamblia PCR Not Detected (NotDetected); Norovirus GI/GII PCR Not Detected (NotDetected); Plesiomonas shigelloides PCR Not Detected (NotDetected); Rotavirus A PCR Not Detected (NotDetected); Salmonella PCR Not Detected (NotDetected); Sapovirus PCR Not Detected (NotDetected); Shiga-like Toxin E.coli (STEC) Not Detected (NotDetected); Shigella/Enteroinvasive E.coli Not Detected (NotDetected); Vibrio cholerae PCR Not Detected (NotDetected); Vibrio species PCR Not Detected (NotDetected); Yersinia enterocolitica PCR Not Detected (NotDetected)
[2022-10-22] MEDS ORDERED: CEROVITE ADV FORMULA TAB PO STA (06:26)
[2022-10-22] MEDS ORDERED: LORazepam 2 MG/1 ML VIAL IV PRN (06:26)
[2022-10-22] MEDS ORDERED: THIAMINE HCL 100 MG, FOLIC ACID 1 MG in SODIUM CHLORIDE 0.9% 1000ML 1,000 ML IV SCH (06:26)
[2022-10-22] MEDS ORDERED: SODIUM BICARBONATE 8.4% 100 MEQ in DEXTROSE 5% 1,000 ML IV SCH (06:26)
[2022-10-22] MEDS ORDERED: ONDANSETRON INJ 2 MG/ML 2 ML VIAL IV PRN (06:26)
[2022-10-22] MEDS ORDERED: STAT IV STA ×2 (06:26→17:13)
[2022-10-22] MEDS ORDERED: THIAMINE HCL 100 MG TAB PO SCH (09:00)
[2022-10-22] MEDS ORDERED: QUEtiapine FUMARATE 25 MG TABLET PO SCH (09:00)
--- NOTE | 2022-10-22 09:04 | XRay Report ---
XR chest 1V portable HISTORY: 67 years-old Female Sepsis acute weakness with sepsis COMPARISON: 01/09/2014 TECHNIQUE: AP view of the chest FINDINGS: Cardiac silhouette is mildly enlarged. Suggested hiatal hernia. There is no pneumothorax, pleural eff usion, airspace consolidation or overt pulmonary edema. Bones of the chest appear grossly intact. IMPRESSION: No acute process. ACT 112: Negative or not required by law. The above report was generated using voice recognition software. It may contain grammatical, syntax o r spelling errors. Electronically signed by: Isaiah Yeung M.D. 10/22/2022 8:54 AM
[2022-10-22] MEDS: FOLIC ACID 1 MG TAB PO SCH (10:48)
--- NOTE | 2022-10-22 10:50 | Electrocardiogram Report ---
Test Reason : Blood Pressure : / mmHG Vent. Rate : 101 BPM Atrial Rate : 101 BPM P-R Int : 160 ms QRS Dur : 074 ms QT Int : 376 ms P-R-T Axes : 028 -23 008 degrees QTc Int : 487 ms Poor data quality, interpretation may be adversely affected Sinus tachycardia Minimal voltage criteria for LVH, may be normal variant Nonspecific ST abnormality Abnormal ECG When compared with ECG of 08-JAN-2014 23:04, Nonspecific T wave abnormality has replaced inverted T waves in Inferior leads Nonspecific T wave abnormality no longer evident in Anterior leads QT has lengthened Confirmed by Wade Andersen ([id number]) on 10/22/2022 10:50:29 AM Referred By: REFERRED SELF Confirmed By:Jos Andersen
--- NOTE | 2022-10-22 13:40 | History & Physical Bridge Note ---
Date of Service October 22, 2022 History & Physical Bridge Note I have examined the patient, reviewed the History & Physical and in the interval since the performance of the History & Physical I have noted the following changes of clinical significance: no changes noted Patient was hospitalized early this morning due to hypotension and diarrhea. Patient reports at least 3 days of water diarrhea, no BRB or melena, poor oral intake. She also admits to drinking 5 alcoholic drinks every day, consumed them last evening (drink of choice is rum). She denies a prior h/o etoh withdrawal symptoms/seizures requiring ICU level of care. She has been to rehab at least 3 times and tried on Naltrexone which was not effective. She apparently sustained a fall prior to arrival after tripping over her walker. She c/o this AM of some belly discomfort but thinks it's due to having to have another BM. She denies n/v, f/c, or gu symptoms. She has serial BMPs ordered d/t metabolic acidosis in state of severe dehydration. Initial lactate ordered was marginally elevated at 2.3, repeat was not obtained. I have added a repeat now and will f/u on repeat BMP. She has received 3L of IVF and is currently receiving D5 w/ NaHCO3. Continue AWSS, thiamine, multivit, and folic acid. Stool biofire negative. Added Imodium PRN. Likely can be discharged tomorrow with adequate rehydration. D/w Dr. García.
[2022-10-22] MEDS: LOPERAMIDE HCL 2 MG CAP PO PRN ×2 (13:49→20:38)
[2022-10-22] MEDS: ACETAMINOPHEN 325 MG TAB PO PRN ×2 (13:49→20:38)
[2022-10-22 14:22] LABS: BUN Creatinine Ratio 15.7 (10-20); Calcium 6.1 mg/dl (8.6-10.3); Creatinine Clr Calc Pharmacy 50.2 ml/min; Est GFR (African American) 65.9 ml/min; Est GFR (Non-African American) 56.9 ml/min
[2022-10-22 16:33] LABS: Estimated Average Glucose 94 mg/dl; Hemoglobin A1C 4.9 % (4.5-5.6)
[2022-10-22] MEDS ORDERED: CALCIUM GLUCONATE 10% 1,000 MG in DEXTROSE 5% 50 ML IV ONE (17:13)
--- NOTE | 2022-10-22 17:16 | Communication Note ---
Date of Service: October 22, 2022 Follow up BMP this afternoon notes that gap is nearly closed at 12. Glucose markedly high at 366, calcium 6.1. Checked a ha1c which was normal at 4.9%. D/C 'd D5W. Ordered a dose of Calcium Gluconate 1g x1 now. Repeat BMP in AM and add ionized calcium.
[2022-10-22] MEDS ORDERED: FAMOTIDINE 20 MG TAB PO STA (23:22)
[2022-10-23 02:30] LABS: BUN Creatinine Ratio 17.6 (10-20); Calcium 7.1 mg/dl (8.6-10.3); Creatinine Clr Calc Pharmacy 60.2 ml/min; Est GFR (African American) 82.2 ml/min; Est GFR (Non-African American) 70.9 ml/min; Potassium 3.5 mmol/L (3.5-5.1)
[2022-10-23] MEDS: ACETAMINOPHEN 325 MG TAB PO PRN ×3 (03:05→19:20)
[2022-10-23 08:17] LABS: Hematocrit (blood only) 28.3 % (37.0-47.0); Hemoglobin 9.6 g/dl (12.0-16.0); Mean Corpuscular Hemoglobin 31.4 pg (25.0-34.0); Mean Corpuscular Hgb Conc 33.9 g/dL (32.0-36.0); Mean Corpuscular Volume 92.5 fL (80.0-100.0); Mean Platelet Volume 9.5 fL (9.4-12.4); Platelet Count 142 K/uL (130-400); RDW Coefficient of Variation 19.6 % (11.5-14.5); RDW Standard Deviation 66.6 fL (36.4-46.3); Red Blood Count 3.06 M/uL (4.20-5.40); White Blood Count 5.68 K/ul (4.8-10.8)
[2022-10-23] MEDS ORDERED: STAT IV STA (08:27)
[2022-10-23] MEDS ORDERED: THIAMINE HCL 100 MG TAB PO SCH (08:31)
[2022-10-23 08:32] LABS: Albumin Level 3.4 gm/dl (3.4-5.0); Bilirubin Direct 0.1 mg/dl (0-0.2); Bilirubin,Total 0.7 mg/dl (0.2-1.0); Total Protein 5.6 gm/dl (6.0-8.3)
--- NOTE | 2022-10-23 08:34 | Hospitalist Progress Note ---
Date of Service October 23, 2022 Assessment & Plan (1) Diarrhea: Plan: 67-year-old female presenting with 2 to 3 days of profuse, watery diarrhea, reported up to 15 bowel movements per day. Tachycardic and hypotensive on admission, placement of groin femoral acess in ER, improvement of BP w/ IVF Lactic was 6.9, Serum bicarb 8 with normal renal function Given 3L IVF and continued on D5 w/ NaHCO3. Repeat labs improved and D5 was discontinued. Lactic resolved on repeat Labs stable on repeat w/ no further anion gap. CO 8--> 24 and diarrhea slowed Stool studies negative, Imodium available prn. PT/OT consults pending CM to assist with arranging new PCP, possibly she has appt w/ PSH group? Psych liaison consult for alcohol use/abuse history/outpatient set up Continue on folate/thiamine/b1, but increased thiamine to 200mg BID orally. No evidence for DT at present, however as noted, alcohol level was 96.1 on admission -- continue to monitor on telemetry. AWSS score 2 for mild tremor/tachy to 100/110s (2) Alcohol use disorder: Plan: Patient reports drinking 8-10 rum drinks daily with last being 10/20/2022 at 2100. She does have history of alcohol withdrawal reported on admit, but for sheila cook during day yesterday denied any withdrawal seizures/ICU treatment Alcohol level 96.1 Anion gap 29 on admit, resolved on repeat w/ banana bag/bicarb IV AWSS at risk protocol Continue thiamine and folic acid daily, added B12 Increased thiamine to 200mg PO BID Would continue supplementation at d/c Psych liaison consulted as above (3) Syncope: Plan: Likely secondary to rapid volume loss in the setting of profuse, watery diarrhea and alcohol use Patient hypotensive and tachycardic upon arrival now improving with adminis tration of IV fluid IV fluid resuscitation Check ECHO to r/o other, no severe/signficant murmur on exam though. suspect could have been combo/dehydration/alcohol use Maintain fall precautions Will consult PT/OT for eval (4) Vitamin D deficiency: Plan: checked w/ low ca ca gluconate ordered, additonal 1gm IV (5) Anorexia: Plan: reported history of such, limiting her food intake and she reports "forcing herself to eat at times" Psych liaison consult discussed, patient agreeable Will also consult cardiologist Plan Continued inpatient stay, monitor for DTs on telemetry AWSS at risk protocol Psych liaison consult for anorexia Likely dc tomorrow, CM assisting with arranging new PCP as well Admission and Anticipated Discharge Date Admission Date: October 22, 2022 Supervising Physician Co-Signing Physician Notes The patient was not seen by me. The chart was reviewed. Case discussed with ИРИНА Gonzalez. Agree with assessment and plan Subjective Eval this afternoon, doing well. No fever/chills, no chest pain/shortness of breath. Discussed alcohol use, she notes she has gone 2-3 days without without issues. Discussed withdrawal, she states hasn't had issues however upon more questioning it does appear possibly once w/ need for ICU admit, but she states it was a "metabolic problem". She moved here in Aug from [place] to be closer w/ daughter. Currently working with therapy. She is hopeful for dc tomorrow. Needs new PCP, also reports issues w/ anorexia. No outpt psych care, ok w/ consultation w/ liaison for resources and will attempt outpt f/u Physical Exam Physical Exam: General: WD female sitting up in bed, working with therapy, NAD HEENT: head normocephalic, atraumatic, mmm/slightly dry, trachea midline Resp: CTA, bibasilar crackles, no w/r, on room air CV: RRR, no significant m/r/g (?maybe slight systolic murmur), no pitting edema/calf tenderness GI: +BS, soft/NT : no miller MSK/Neuro: no focal deficit, no slurred speech/facial droop, follows commands, strength equal bilaterally R groin CVC in place Psych: AOx3, reports anorexia Results & Data Results & Data Vital Signs (Past 12 Hours) Vital Signs Temp Pulse Pulse Resp BP Pulse Ox O2 Del Method 10/23/22 07:55 36.8 C 84 18 134/84 97 Room Air 10/23/22 02:58 36.7 C 91 H 20 143/82 H 99 Room Air 10/22/22 23:00 94 H 10/22/22 23:07 36.9 C 91 H 20 107/67 98 Room Air Laboratory Results 10/23/22 10/23/2223 Range/Units 09:24 07:50 07:50 WBC 5.68 (4.8-10.8) K/ul RBC 3.06 L (4.20-5.40) M/uL Hgb 9.6 L (12.0-16.0) g/dl Hct 28.3 L (37.0-47.0) % MCV 92.5 (80.0-100.0) fL MCH 31.4 (25.0-34.0) pg MCHC 33.9 (32.0-36.0) g/dL RDW Std Deviation 66.6 H (36.4-46.3) fL RDW Coeff of Cate 19.6 H (11.5-14.5) % Plt Count 142 (130-400) K/uL MPV 9.5 (9.4-12.4) fL Sodium (136-145) mmol/L Potassium (3.5-5.1) mmol/L Chloride (98-107) mmol/L Carbon Dioxide (21-32) mmol/L Anion Gap (3-11) BUN (6-23) mg/dl Creatinine (0.6-1.2) mg/dl Est Cr Clr Drug Dosing ml/min Est GFR ( Amer) ml/min Est GFR (Non-Af Amer) ml/min BUN/Creatinine Ratio (10-20) Glucose (70-99(Fasting)) mg/dl Estimat Average Glucose mg/dl Hemoglobin A1c (4.5-5.6) % Lactate (0.4-2.0) mmol/L Calcium (8.6-10.3) mg/dl Ionized Calcium (1.12-1.32) mmol/L Total Bilirubin 0.7 D (0.2-1.0) mg/dl Direct Bilirubin 0.1 (0-0.2) mg/dl AST 32 (13-39) U/L ALT 22 (7-52) U/L Alkaline Phosphatase 71 (34-104) U/L Total Protein 5.6 L (6.0-8.3) gm/dl Albumin 3.4 (3.4-5.0) gm/dl 25-OH Vitamin D Total 17.3 L (30-100) ng/ml 10/23/22 10/23/22 10/22/22 Range/Units 07:50 01:56 13:47 WBC (4.8-10.8) K/ul RBC (4.20-5.40) M/uL Hgb (12.0-16.0) g/dl Hct (37.0-47.0) % MCV (80.0-100.0) fL MCH (25.0-34.0) pg MCHC (32.0-36.0) g/dL RDW Std Deviation (36.4-46.3) fL RDW Coeff of Cate (11.5-14.5) % Plt Count (130-400) K/uL MPV (9.4-12.4) fL Sodium 137 (136-145) mmol/L Potassium 3.5 (3.5-5.1) mmol/L Chloride 104 (98-107) mmol/L Carbon Dioxide 24 (21-32) mmol/L Anion Gap 9 (3-11) BUN 15 (6-23) mg/dl Creatinine 0.85 (0.6-1.2) mg/dl Est Cr Clr Drug Dosing 60.2 ml/min Est GFR ( Amer) 82.2 ml/min Est GFR (Non-Af Amer) 70.9 ml/min BUN/Creatinine Ratio 17.6 (10-20) Glucose 109 H (70-99(Fasting)) mg/dl Estimat Average Glucose mg/dl Hemoglobin A1c (4.5-5.6) % Lactate 1.5 (0.4-2.0) mmol/L Calcium 7.1 L (8.6-10.3) mg/dl Ionized Calcium 1.02 L (1.12-1.32) mmol/L Total Bilirubin (0.2-1.0) mg/dl Direct Bilirubin (0-0.2) mg/dl AST (13-39) U/L ALT (7-52) U/L Alkaline Phosphatase (34-104) U/L Total Protein (6.0-8.3) gm/dl Albumin (3.4-5.0) gm/dl 25-OH Vitamin D Total (30-100) ng/ml 10/22/22 10/22/22 Range/Units 13:47 01:27 WBC (4.8-10.8) K/ul RBC (4.20-5.40) M/uL Hgb (12.0-16.0) g/dl Hct (37.0-47.0) % MCV (80.0-100.0) fL MCH (25.0-34.0) pg MCHC (32.0-36.0) g/dL RDW Std Deviation (36.4-46.3) fL RDW Coeff of Cate (11.5-14.5) % Plt Count (130-400) K/uL MPV (9.4-12.4) fL Sodium 133 L (136-145) mmol/L Potassium 4.0 (3.5-5.1) mmol/L Chloride 101 (98-107) mmol/L Carbon Dioxide 20 L (21-32) mmol/L Anion Gap 12 H (3-11) BUN 16 (6-23) mg/dl Creatinine 1.02 (0.6-1.2) mg/dl Est Cr Clr Drug Dosing 50.2 ml/min Est GFR ( Amer) 65.9 ml/min Est GFR (Non-Af Amer) 56.9 ml/min BUN/Creatinine Ratio 15.7 (10-20) Glucose 366 H* (70-99(Fasting)) mg/dl Estimat Average Glucose 94 mg/dl Hemoglobin A1c 4.9 (4.5-5.6) % Lactate (0.4-2.0) mmol/L Calcium 6.1 L (8.6-10.3) mg/dl Ionized Calcium (1.12-1.32) mmol/L Total Bilirubin (0.2-1.0) mg/dl Direct Bilirubin (0-0.2) mg/dl AST (13-39) U/L ALT (7-52) U/L Alkaline Phosphatase (34-104) U/L Total Protein (6.0-8.3) gm/dl Albumin (3.4-5.0) gm/dl 25-OH Vitamin D Total (30-100) ng/ml PG Care Time/CCT Total # of Minutes Spent Total Time Spent with Patient: Total time spent is greater than 50% in coordination of care (as documented) at patient's floor/unit and/or counseling patient: Coding Level of Care Code 06280 SUB INP/OBS CARE 3/50MIN Diagnoses Diarrhea R19.7 Alcohol use disorder F10.90 Syncope R55 Vitamin D deficiency E55.9 Anorexia R63.0
[2022-10-23] MEDS ORDERED: CALCIUM GLUCONATE 10% 1,000 MG in DEXTROSE 5% 50 ML IV ONE (08:45)
[2022-10-23] MEDS: FOLIC ACID 1 MG TAB PO SCH (09:47)
[2022-10-23] MEDS: CYANOCOBALAMIN (B-12) 500 MCG TABLET PO SCH (10:11)
--- NOTE | 2022-10-23 12:56 | XCELERA ---
[id number]\[id number]
[2022-10-23 15:06] LABS: BUN Creatinine Ratio 19.2 (10-20); Creatinine Clr Calc Pharmacy 69.4 ml/min; Est GFR (African American) 91.2 ml/min; Est GFR (Non-African American) 78.7 ml/min; Potassium 3.7 mmol/L (3.5-5.1)
[2022-10-23] MEDS: MAGNESIUM SULFATE / D5W 1 GM/100 ML BAG IV SCH ×4 (17:53→22:57)
[2022-10-23] MEDS: THIAMINE HCL 100 MG TAB PO SCH (20:04)
[2022-10-23] MEDS ORDERED: QUEtiapine FUMARATE 25 MG TABLET PO SCH (21:00)
[2022-10-24] MEDS: ACETAMINOPHEN 325 MG TAB PO PRN (06:04)
[2022-10-24 06:36] LABS: Hematocrit (blood only) 28.1 % (37.0-47.0); Hemoglobin 9.6 g/dl (12.0-16.0); Mean Corpuscular Hemoglobin 31.3 pg (25.0-34.0); Mean Corpuscular Hgb Conc 34.2 g/dL (32.0-36.0); Mean Corpuscular Volume 91.5 fL (80.0-100.0); Mean Platelet Volume 10.3 fL (9.4-12.4); Platelet Count 126 K/uL (130-400); RDW Coefficient of Variation 19.6 % (11.5-14.5); RDW Standard Deviation 65.5 fL (36.4-46.3); Red Blood Count 3.07 M/uL (4.20-5.40); White Blood Count 4.88 K/ul (4.8-10.8)
[2022-10-24 07:11] LABS: Albumin Level 3.3 gm/dl (3.4-5.0); Bilirubin,Total 0.6 mg/dl (0.2-1.0); Calcium 8.9 mg/dl (8.6-10.3); Magnesium 1.9 mg/dl (1.7-2.4); Potassium 4.1 mmol/L (3.5-5.1)
[2022-10-24 07:17] LABS: BUN Creatinine Ratio 18.3 (10-20); Creatinine Clr Calc Pharmacy 86.8 ml/min; Est GFR (African American) 109.3 ml/min; Est GFR (Non-African American) 94.3 ml/min
[2022-10-24 07:18] LABS: Albumin Globulin Ratio 1.5 (0.9-2); Globulin 2.2 gm/dl (2.5-4.0); Phosphorus 1.2 mg/dl (2.5-4.9); Total Protein 5.5 gm/dl (6.0-8.3)
[2022-10-24] MEDS ORDERED: POTASSIUM PHOS 3 MMOL/1 ML INFUSION IV STA (07:38)
--- NOTE | 2022-10-24 07:42 | Hospitalist Progress Note ---
Date of Service October 24, 2022 Assessment & Plan (1) Diarrhea: Plan: (1) Diarrhea: Plan: 67-year-old female presenting with 2 to 3 days of profuse, watery diarrhea, reported up to 15 bowel movements per day. Tachycardic and hypotensive on admission, placement of groin femoral acess in ER, improvement of BP w/ IVF Lactic was 6.9, Serum bicarb 8 with normal renal function Given 3L IVF and continued on D5 w/ NaHCO3. Repeat labs improved and D5 was discontinued. Lactic resolved on repeat Labs stable on repeat w/ no further anion gap. CO 8--> 24 and diarrhea slowed Stool studies negative, Imodium available prn. PT/OT consults pending CM to assist with arranging new PCP, possibly she has appt w/ PS group? Psych liaison consult for alcohol use/abuse history/outpatient set up Continue on folate/thiamine/b1, but increased thiamine to 200mg BID orally. No evidence for DT at present, however as noted, alcohol level was 96.1 on admission -- continue to monitor on telemetry. AWSS score 2 for mild tremor/tachy to 100/110s 10/24 --> less diarrhea 10/24 Given mag IV for mag 1.1 --> 1.9 on repeat. Phos ordered given reports anorexia/refeeding syndrome -- low 1.2 -- IV replacement ordered. Nutrition/dietary also on consult given such (2) Alcohol use disorder: Plan: Patient reports drinking 8-10 rum drinks daily with last being 10/20/2022 at 2100. She does have history of alcohol withdrawal reported on admit, but for provider during day yesterday denied any withdrawal seizures/ICU treatment Alcohol level 96.1 Anion gap 29 on admit, resolved on repeat w/ banana bag/bicarb IV AWSS at risk protocol Continue thiamine and folic acid daily, added B12 Increased thiamine to 200mg PO BID Would continue supplementation at d/c Psych liaison consulted as above (3) Syncope: Plan: Likely secondary to rapid volume loss in the setting of profuse, watery diarrhea and alcohol use Patient hypotensive and tachycardic upon arrival now improving with administration of IV fluid IV fluid resuscitation Check ECHO to r/o other, no severe/signficant murmur on exam though. suspect could have been combo/dehydration/alcohol use Maintain fall precautions Will consult PT/OT for eval (4) Vitamin D deficiency: Plan: checked w/ low ca ca gluconate ordered, additional 1gm IV (5) Anorexia: Plan: (5) Anorexia: Plan: reported history of such, limiting her food intake and she reports "forcing herself to eat at times" Psych liaison consult discussed, patient agreeable Will also consult pulper tender Plan Continued inpatient stay, monitor for DTs on telemetry AWSS at risk protocol Psych liaison consult for anorexia Likely dc tomorrow, CM assisting with arranging new PCP as well (6) Hypomagnesemia: Admission and Anticipated Discharge Date Admission Date: October 22, 2022 Results & Data Results & Data Vital Signs (Past 12 Hours) Vital Signs Temp Pulse Pulse Resp BP Pulse Ox O2 Del Method 10/24/22 07:29 36.8 C 88 16 137/86 99 Room Air 10/24/22 02:41 36.8 C 78 17 103/42 L 98 Room Air 10/23/22 22:50 88 10/23/22 22:46 36.5 C 94 H 19 108/73 98 Room Air 10/23/22 20:01 37.1 C 95 H 14 113/78 100 Room Air PG Care Time/CCT Total # of Minutes Spent Total Time Spent with Patient: Total time spent is greater than 50% in coordination of care (as documented) at patient's floor/unit and/or counseling patient: Coding Diagnoses Diarrhea R19.7 Alcohol use disorder F10.90 Syncope R55 Vitamin D deficiency E55.9 Anorexia R63.0 Hypomagnesemia E83.42
[2022-10-24] MEDS ORDERED: POTASSIUM PHOSPHATE 15 MMOL in SODIUM CHLORIDE 0.9% 250 ML IV ONE (08:00)
[2022-10-24] MEDS: CYANOCOBALAMIN (B-12) 500 MCG TABLET PO SCH (08:33)
[2022-10-24] MEDS: FOLIC ACID 1 MG TAB PO SCH (08:34)
[2022-10-24] MEDS: THIAMINE HCL 100 MG TAB PO SCH (08:35)
[2022-10-24] MEDS ORDERED: CHOLECALCIFEROL 1,000 UNITS 25 MCG TAB PO SCH (09:00)
--- NOTE | 2022-10-24 10:32 | Discharge Summary ---
Date of Service October 24, 2022 Admission HPI Per Admitting Provider Pretty Nielsen Is a 68-year-old female with history of hypertension, depression and daily heavy alcohol use presenting from home with several days of profuse, watery diarrhea (15+ episodes daily), dizziness, near syncope, nausea, decreased oral intake. Patient tripped on her walker and fell prior to arrival. No LOC. Hypotensive by EMS - 60's/40's patient reports more than 15 liquid bowel movements daily patient denies travel, recent anabiotic use, recent hospitalization, or sick contacts. She reports she has not had anything to eat for several days. Patient drinks alcohol daily. She drinks approximately 8-10 rum beverages per day with last drink being 10/21/2022 at 2100. She has history of alcohol withdrawal symptoms. No seizure or DTs. In the ER patient tachycardic, hypotensive. She was administered IV fluids. She did lose her peripheral IV access and had a right femoral central venous catheter placed by the ER attending. Blood pressure did improve after administration of IV fluid. Presently 107/52. Admission Exam Per Admitting Provider General: patient resting comfortably, NAD, non-toxic in appearance, AA&O x 4 Skin: warm, dry, intact, no rashes or lesions HEENT: NC/AT, PERRL, EOMI, anicteric sclera, conjunctiva without injection, external ear normal to inspection and nontender, nares patent, moist DRY membranes, dentition intact, no oropharyngeal lesions, neck supple, trachea midline, no LAD, no thyromegaly, no JVD Heart: +S1/S2, regular, tachycardic, no m/r/g Lungs: equal air entry bilaterally, no rales/rhonchi/wheezes Abd: +BS, soft, NT/ND, no masses/organomegaly/ascites Ext: warm, 2+ pulses in UE/LE bilaterally, no clubbing/cyanosis or edema Neuro: nonfocal, patient AA&O x 4, speech intact, no facial droop, moving all extremities on command with equal strength 5/5 Right groin CVC in place, no bleeding or hematoma Principal Diagnosis Fall, Diarrhea, Alcohol Use, Hypotension Discharge Exam General: WD/WN female sitting up in bed, NAD, stating wanting to go home if possible HEENT: head normocephalic, atraumatic, mmm, trachea midline Resp: CTA, bibasilar crackles, no w/r, on room air CV: RRR, no significant m/r/g (?maybe slight systolic murmur), no pitting edema /calf tenderness GI: +BS, soft/NT : no miller MSK/Neuro: no focal deficit, no slurred speech/facial droop, follows commands, strength equal bilaterally R groin CVC removed, site looks good, no infection Psych: AOx3, cooperative, mood stable, no SI/HI Skin: scattered bruising, primarily R arm Discharge Data Allergies Allergy/AdvReac Type Severity Reaction Status Date / Time No Known Allergies Allergy Unverified 01/09/14 03:26 Consultations 10/22/22 03:36 ED Decision to Admit Stat 10/23/22 15:55 Consult Behavioral Health Liaison Routine Ordered Studies Chest X-Ray 10/22/22 01:10 XR chest 1V portable HISTORY: 67 years-old Female Sepsis acute weakness with sepsis COMPARISON: 01/09/2014 TECHNIQUE: AP view of the chest FINDINGS: Cardiac silhouette is mildly enlarged. Suggested hiatal hernia. There is no pneumothorax, pleural effusion, airspace consolidation or overt pulmonary edema. Bones of the chest appear grossly intact. IMPRESSION: No acute process. ACT 112: Negative or not required by law. The above report was generated using voice recognition software. It may contain grammatical, syntax or spelling errors. Electronically signed by: Isaiah Yeung M.D. 10/22/2022 8:[address] 10/22/22 01:11 Exam(s): CT C SPINE EXAM: CT Cervical Spine Without Intravenous Contrast CLINICAL HISTORY: Reason for exam: fall. TECHNIQUE: Axial computed tomography images of the cervical spine without intravenous contrast. Automated exposure control was utilized for the study. A dose lowering technique was utilized adhering to the principles of ALARA. COMPARISON: No relevant prior studies available. FINDINGS: Evaluation of the soft tissues limited due to lack of soft tissue kernel images. Within this constraint: No acute fracture or traumatic subluxation. No significant spinal canal or neuroforaminal stenosis. The prevertebral and paraspinal soft tissues are grossly unremarkable. Visualized lung apices are clear. IMPRESSION: No acute fracture or traumatic subluxation. Electronically signed by: Home Villegas M.D. 10/22/22 05:[address] 10/22/22 01:11 Exam(s): CT FACIAL Without Contrast EXAM: CT Maxillofacial Without Intravenous Contrast CLINICAL HISTORY: Reason for exam: fall. TECHNIQUE: Axial computed tomography images of the face without intravenous contrast. Automated exposure control was utilized for the study. A dose lowering technique was utilized adhering to the principles of ALARA. COMPARISON: No relevant prior studies available. FINDINGS: Evaluation of the soft tissues limited due to only bone kernel images sent for interpretation. Within this constraint: Bones/joints: No acute fracture. Soft tissues: No acute findings. Orbits: Unremarkable. Sinuses: Unremarkable. No air-fluid levels. IMPRESSION: No acute findings in the face. Electronically signed by: Home Villegas M.D. 10/22/22 05:[address] 10/22/22 01:11 Exam(s): CT HEAD Without Contrast EXAM: CT Head Without Intravenous Contrast CLINICAL HISTORY: Reason for exam: fall. TECHNIQUE: Axial computed tomography images of the head/brain without intravenous contrast. Automated exposure control was utilized for the study. A dose lowering technique was utilized adhering to the principles of ALARA. COMPARISON: CT head performed 09/27/22 FINDINGS: Limitations: Exam limited due to lack of coronal and sagittal reformatted images. Within this constraint: Brain: No acute intracranial hemorrhage, mass-effect or midline shift. No major vascular territory infarct. Mild white matter disease. No edema. Ventricles: No ventriculomegaly. Bones/joints: No acute fracture. Soft tissues: Unremarkable. Sinuses: Unremarkable as visualized. No acute sinusitis. Mastoid air cells: Unremarkable as visualized. No mastoid effusion. IMPRESSION: Exam limited due to lack of coronal and sagittal reformatted images. Within this constraint: No acute intracranial pathology. Electronically signed by: Home Villegas M.D. 10/22/22 05:26 AM 10/23/2021 ECHOCARDIOGRAM LV systolic function is normal. Grade I diastolic dysfunction. Aortic valve sclerosis moderate without significant aortic valvular stenosis. Mild mitral annular calcification. RVSP pressure normal Hospital Course (1) Diarrhea: 67-year-old female presenting with 2 to 3 days of profuse, watery diarrhea, reported up to 15 bowel movements per day. Tachycardic and hypotensive on admission, placement of groin femoral acess in ER, improvement of BP w/ IVF Lactic was 6.9, Serum bicarb 8 with normal renal function. Reported drinking anywhere from "4-5" to "8-10" rum drinks daily. ETOH 96.1 on admission Given copious IVF replacement, D5 w/ NaHCO for acidosis w/ resolution on repeat labs Lactic normalized Stool studies negative, imodium prn -- no diarrhea in past 2 days reported Mag replacement, phos as well for refeeding syndrome given reports long standing anorexia. Melon Packer consulted while inpatient. Had eaten almost all her breakfast, appetite reportedly improved PT/OT consulted -- HH to be arranged. CM navigator assisting w/ follow-up PCP w/ [facility] as prior arranged as she just moved to the area. Alcohol cessation recommended. Psych liason provided information/resources. Continued outpt f/u rec'd/. See below (2) Alcohol use disorder: Patient reported drinking 8-10 rum drinks daily with last being 10/20/2022 at 2100. She does have history of alcohol withdrawal reported on admit, but for provider during day yesterday denied any withdrawal seizures/ICU treatment Alcohol level 96.1 Anion gap 29 on admit, resolved on repeat w/ banana bag/bicarb IV AWSS at risk protocol ordered but did not need to utilize Continue B12/thiamine/folic acid -- rec to continue at d/c Psych liason consulted as above, resources provided and outpt f/u encouraged. Cessation also encouraged. NO EVIDENCE FOR DTS while inpatient (3) Syncope: Likely secondary to rapid volume loss in the setting of profuse, watery diarrhea and alcohol use Patient hypotensive and tachycardic upon arrival now improving with administration of IV fluid IV fluid resuscitation with resolution of symptoms and no issues x past [address] head negative/face/cervical spine w/o acute process Checked ECHO to r/o other, no severe/significant murmur on exam though. suspect could have been combo/dehydration/alcohol use. No further symptoms since electrolyte replacement. ECHO does show LV systolic function is normal. Grade I diastolic dysfunction. Aortic valve sclerosis moderate without significant aortic valvular stenosis. Mild mitral annular calcification. RVSP pressure normal Fall precautions, PT/OT -- HH at dc planned (4) Vitamin D deficiency: checked w/ low ca ca gluconate ordered, additional 1gm IV continued PO supp at d/c (5) Anorexia: reported history of such, limiting her food intake and she reports "forcing herself to eat at times" Psych liaison consult discussed, patient agreeable Will also consult wood patternmaker improvement in PO intake outpt f/u Dietary consulted -- recommendation to consider outpatient follow up for [facility] psych/eating disorder treatment (6) Hypomagnesemia: improved on repeat/normalized Total Time Total Time Spent Total Time Spent (In Minutes): 45 Discharge Plan Discharge Items Patient Disposition: Home - Home Health Services Reason For Visit: DIARRHEA, HYPOTENSION Discharge Diagnosis: Diarrhea, Alcohol Use, Fall Goals: You have been hospitalized for an acute medical problem. During your stay at [facility], we have made an effort to correct the problem that brought you to the hospital while keeping you as comfortable as possible. Medications were used to bring your condition under control and your discharge instructions will include directions for any medications you should take after leaving the hospital. Please make sure you see your Primary Care Provider as part of your follow up plan. Activity: As commented below Non-emergency contact: Primary Care Provider Call non-emergency contact if: you have any medication questions, your symptoms worsen, your pain is not controlled and you have a fever Follow-up/Referrals: Emily Diehl PA-C [Primary Care Provider] - 10/31/22 9:05 am (Hospital follow- up/ New pt appointment. Please bring ID and insurance cards. Please arrive 15 minutes prior to appointment time.) Diet: Heart Healthy Addtl Attending Provider Instructions: You have been hospitalized for diarrhea and a fall. This could be due to alcohol use and your alcohol level was elevated on admission. Imaging was negative for acute process. Stool testing was negative and you were provided imodium as needed and can continue at home. It is strongly encouraged to avoid/cut back/limit alcohol use. We have also consulted with psychiatry team and resources have been provided and outpatient follow up is encouraged. Given alcohol use, we have checked levels for B12 and these were low (after already giving you some replacement) and you should continue oral B12/folate/thiamine at discharge. Therapy evaluations were undertaken and home health has been arranged. You should follow up with primary care, Emily Diehl, after discharge to monitor your status after discharge. You should HOLD your blood pressure pill Hydrochlorothiazide in the meantime as blood pressures have been stable off this and they can determine needs in follow up/possibly giving a medication that would be better for you that doesn't promote dehydration, especially if having issues remaining hydrated. Please return to the ER with any fevers, chest pain, shortness of breath, issues with staying hydrated or for any other symptoms concerning for you. It has been a pleasure being a part of the medical team providing for you while you have been in the hospital. Take care! Pending Studies at Discharge: Yes Studies:: Blood cultures -- no growth to date after 48 hours Stand-Alone Forms: My [facility], Smoking Cessation Medications and DC Order Prescriptions: New cholecalciferol (vitamin D3) 25 mcg (1,000 unit) Capsule 3,000 unit PO QAM 30 Days Qty: 90 0RF folic acid 1 mg Tablet 1 mg PO QAM Qty: 30 0RF thiamine HCl (vitamin B1) 100 mg Tablet 200 mg PO BID 30 Days Qty: 120 0RF cyanocobalamin (vitamin B-12) 1,000 mcg capsule 1,000 mcg PO DAILY Qty: 30 0RF potassium phosphate, monobasic 500 mg tablet,soluble 1,000 mg PO DAILY Qty: 14 0RF Continued quetiapine 100 mg tablet 50 mg PO DAILY Held hydrochlorothiazide 25 mg tablet 25 mg PO DAILY Hold Instructions: until seen by PCP Discontinued tramadol 50 mg tablet 50 mg PO UD PRN (Reason: Pain) Discharge Orders: Discharge Order (Routine); Ordered 10/24/22 Ordered By: Justine De La O/Other Patient Handouts: Treating Eating Disorders Admission Data Admit Date/Time: 10/22/22 03:59 Attending Provider: Rafael Rivera Admit Provider: Amanda Lovell Primary Care Provider: Emily Diehl Other Providers: Amanda Lovell ; [facility],Home Healthcare Other Interventions: Discharge Summary Assessment (RN) Last Done: 10/24/22 10:37 Supervising Physician Co-Signing Physician Notes The patient was seen by me. The chart was reviewed. Case discussed with ИРИНА Gonzalez. Agree with assessment and plan. She will be discharged home today, October 24 Coding Level of Care Code 00049 INP/OBS DISCH >30 MIN Diagnoses Diarrhea R19.7 Alcohol use disorder F10.90 Syncope R55 Vitamin D deficiency E55.9 Anorexia R63.0 Hypomagnesemia E83.42
[2022-10-24] MEDS ORDERED: POT PHOSPHATE MONOBASIC W/ SOD TAB PO SCH (15:00)
== END 2022-10-24 12:30 | disposition home health service (06) | DRG 392 ==
LOC: ED 00:59 → SUATTDRO 03:59 → EDINP 03:59 → 2S 06:26

== ENCOUNTER 2023-01-07 21:49 | Observation (INO) ==
--- NOTE | 2023-01-07 21:57 | Emergency Department Note ---
Impression & Plan Acute dehydration, Diarrhea, Syncope ED Provider Note NAME: SANDHYA HALL AGE: 67 SEX: F : 1955 ARRIVES VIA: Ambulance INFORMANT: Patient, ED PROVIDER(S): Ariel Doe MD CHIEF COMPLAINT: Syncope, diarrhea MEDICAL DECISION MAKING: Patient presents due to concern for syncope and associated diarrhea which been ongoing for approximate 6 weeks. The patient is very weak and fatigued. Next IV was established blood was obtained patient was ordered IV Zofran as well as 2 L IV fluids. The patient's blood work does show a white count of 11.3 with a normal hemoglobin and platelet count. Kidney function is unremarkable the patient does have anion gap and a lower bicarb. Blood sugar is not elevated. Hypocalcemia noted. Patient has been having significant bouts of diarrhea along with dehydration and lack of p.o. intake which I believe are contributing to the patient's anion gap metabolic acidosis. Patient does not appear to be an extremis. Given the after mentioned I did speak the on-call hospitalist Dr. Parker and the patient was admitted to the medicine service Prior /Outside records reviewed: None Differential diagnosis: Vasovagal event, dehydration, infection, hypoglycemia, electrolyte ab normalities, diarrheal illness, arrhythmia among others were considered Diagnostics, as interpreted by me: ECG: Sinus tachycardia, rate of 107, normal intervals, normal axis, no ST elevations. Cardiac monitoring: An order was placed for continuous cardiac monitoring. The monitor shows a rate of 102 with tachycardic and regular rhythm. Patient was placed on pulse oximetry Medical decision rules: None Imaging studies: See below HPI: Patient presents due to concern for weakness and syncope. The patient states that the daughter did catch her but she has been having chronic diarrhea over the last 6 weeks about 3-4 bowel movements daily. The patient states that she has had negative stool studies completed before. The patient does have nausea and associated dry heaves. Patient denies any chest pains or shortness of breath. Patient denies any falls or trauma. Patient does complain of worsening weakness and fatigue and lack of appetite p.o. intake. The patient believes that she is lost about 7 pounds over the last week. Patient denies blood in the stool. PAST MEDICAL HISTORY: See Below PAST SURGICAL HISTORY: See Below SOCIAL HISTORY: See Below HOME MEDICATIONS: See Below ALLERGIES: See Below VITALS: See Below PHYSICAL EXAMINATION: GENERAL: NAD, fatigued in appearance EYE EXAM: Normal conjunctiva. PERRL, no anisocoria and EOM's grossly intact w/o pain. NECK: Supple, no nuchal rigidity, no adenopathy, non-tender. No signs of meningismus. FROM of the neck with good chin to chest and neck extension. No stridor. LUNGS: Clear to auscultation. Normal chest wall mechanics. HEART: Tachycardic and regular, no MRG. ABDOMEN: Abdomen soft, non-tender, no masses, no rebound or guarding. BACK: No CVA TTP. SKIN: No rashes and no bruising. UPPER EXTREMITIES: Upper extremities are grossly normal. LOWER EXTREMITIES: Grossly normal, no edema. NEURO EXAM: A&O x3, cranial nerves II-XII grossly intact, normal speech, moves all 4 extremities. Past Med/Surg History Medical History Cholelithiasis No pertinent family history Surgical History H/O: hysterectomy History of cholecystectomy Social History Smoking Status: Never smoker Second Hand Exposure: No; Do You Dip or Chew Tobacco: No; Tobacco Cessation Education Requested by Patient: No Hx Alcohol Use: Yes Alcohol type: hard liquor Hx Substance Use: No Preferred Language: Yoruba Communication Ability: Effective Crabber Required: No Beliefs That Will Affect Care: None Current Living Situation: Alone Other Information That Helps Us Care for You: No Feels Safe at Home: Yes Safety Concerns: Feels Safe At This Time Assistive Devices: Cane and Walker Allergies Allergies Allergy/AdvReac Type Severity Reaction Status Date / Time No Known Allergies Allergy Verified 01/07/23 23:03 Home Meds Home Medications Medication Instructions Recorded Confirmed quetiapine 100 mg tablet 100 mg PO HS 10/22/22 01/07/23 hydrochlorothiazide 25 mg tablet 25 mg PO QAM 01/07/23 01/07/23 hydroxyzine pamoate 100 mg capsule 100 mg PO HS 01/07/23 01/07/23 pantoprazole 20 mg tablet,delayed 0 mg PO DAILY 07/04/23 07/04/23 release (Protonix) sertraline 100 mg tablet (Zoloft) 100 mg PO DAILY 01/07/23 01/07/23 tramadol 50 mg tablet 50 mg PO Q6H PRN Pain 01/07/23 01/07/23 Results & Data (ED) Vital Signs Vital Signs - 24 hr 01/07/23 21:57 01/07/23 21:57 01/07/23 22:31 Temperature 37 C 37 C Temperature Source Oral Oral Pulse Rate 110 H Pulse Rate from SpO2 Sensor Respiratory Rate 15 Blood Pressure 133/98 Blood Pressure Mean 109 Pulse Oximetry 99 96 Oxygen Delivery Method Room Air Sepsis Recent Fever Within 48 Hours No Sepsis New/Unexplained Change in Mental Status N/A Sepsis Action Taken by Nursing No Action Required 01/07/23 22:00 01/07/23 22:10 01/07/23 22:20 Temperature Temperature Source Pulse Rate 107 H 121 H 115 H Pulse Rate from SpO2 Sensor 108 H 119 H 114 H Respiratory Rate 18 16 19 Blood Pressure Blood Pressure Mean Pulse Oximetry 99 94 97 Oxygen Delivery Method Sepsis Recent Fever Within 48 Hours Sepsis New/Unexplained Change in Mental Status Sepsis Action Taken by Nursing 01/07/23 22:30 01/07/23 22:40 Temperature Temperature Source Pulse Rate 108 H Pulse Rate from SpO2 Sensor 114 H 108 H Respiratory Rate 20 17 Blood Pressure Blood Pressure Mean Pulse Oximetry 96 98 Oxygen Delivery Method Sepsis Recent Fever Within 48 Hours Sepsis New/Unexplained Change in Mental Status Sepsis Action Taken by Detention Medications Current Medication List: was personally reviewed by me Laboratory Data Attestation: I reviewed the patient's lab results. 01/08/23 04:43 01/08/23 04:43 Lab Results 01/07/23 01/07/23 01/07/23 Range/Units 22:00 22:22 22:22 WBC 11.38 H (4.8-10.8) K/ul RBC 4.48 (4.20-5.40) M/uL Hgb 12.0 (12.0-16.0) g/dl Hct 37.3 (37.0-47.0) % MCV 83.3 (80.0-100.0) fL MCH 26.8 (25.0-34.0) pg MCHC 32.2 (32.0-36.0) g/dL RDW Std Deviation 61.6 H (36.4-46.3) fL RDW Coeff of Cate 20.6 H (11.5-14.5) % Plt Count 315 (130-400) K/uL MPV 9.2 L (9.4-12.4) fL Immature Gran % (Auto) 0.4 % Neut % (Auto) 77.7 % Lymph % (Auto) 13.3 % [place] % (Auto) 8.1 % Eos % (Auto) 0.1 % Baso % (Auto) 0.4 % Neut # (Auto) 8.85 H (1.40-6.50) K/uL Lymph # (Auto) 1.51 (1.2-3.4) K/uL [place] # (Auto) 0.92 H (0.11-0.59) K/uL Eos # (Auto) 0.01 (0-0.50) K/uL Baso # (Auto) 0.05 (0-0.2) K/uL Immature Gran # (Auto) 0.04 (0.01-0.20) K/uL Anisocytosis Present Sodium 136 (136-145) mmol/L Potassium 4.7 (3.5-5.1) mmol/L Chloride 92 L (98-107) mmol/L Carbon Dioxide 12 L (21-32) mmol/L Anion Gap 32 H (3-11) BUN 22 (6-23) mg/dl Creatinine 0.86 (0.6-1.2) mg/dl Est Cr Clr Drug Dosing Not Reportable Est GFR ( Amer) 81.0 ml/min Est GFR (Non-Af Amer) 69.9 ml/min BUN/Creatinine Ratio 25.6 H (10-20) Glucose 62 L (70-99(Fasting)) mg/dl POC Glucose 62 L* (70-99) mg/dl Calcium 8.5 L (8.6-10.3) mg/dl Magnesium 1.9 (1.7-2.4) mg/dl Total Bilirubin 1.3 H (0.2-1.0) mg/dl AST 123 H (13-39) U/L ALT 48 (7-52) U/L Alkaline Phosphatase 113 H (34-104) U/L Troponin I High Sens 8.1 (0-14) pg/ml Total Protein 7.7 (6.0-8.3) gm/dl Albumin 4.3 (3.4-5.0) gm/dl Globulin 3.4 (2.5-4.0) gm/dl Albumin/Globulin Ratio 1.3 (0.9-2) SARS-CoV-2, RNA, NAAT (NEGATIVE) 01/07/23 Range/Units 22:26 WBC (4.8-10.8) K/ul RBC (4.20-5.40) M/uL Hgb (12.0-16.0) g/dl Hct (37.0-47.0) % MCV (80.0-100.0) fL MCH (25.0-34.0) pg MCHC (32.0-36.0) g/dL RDW Std Deviation (36.4-46.3) fL RDW Coeff of Cate (11.5-14.5) % Plt Count (130-400) K/uL MPV (9.4-12.4) fL Immature Gran % (Auto) % Neut % (Auto) % Lymph % (Auto) % [place] % (Auto) % Eos % (Auto) % Baso % (Auto) % Neut # (Auto) (1.40-6.50) K/uL Lymph # (Auto) (1.2-3.4) K/uL [place] # (Auto) (0.11-0.59) K/uL Eos # (Auto) (0-0.50) K/uL Baso # (Auto) (0-0.2) K/uL Immature Gran # (Auto) (0.01-0.20) K/uL Anisocytosis Sodium (136-145) mmol/L Potassium (3.5-5.1) mmol/L Chloride (98-107) mmol/L Carbon Dioxide (21-32) mmol/L Anion Gap (3-11) BUN (6-23) mg/dl Creatinine (0.6-1.2) mg/dl Est Cr Clr Drug Dosing Est GFR ( Amer) ml/min Est GFR (Non-Af Amer) ml/min BUN/Creatinine Ratio (10-20) Glucose (70-99(Fasting)) mg/dl POC Glucose (70-99) mg/dl Calcium (8.6-10.3) mg/dl Magnesium (1.7-2.4) mg/dl Total Bilirubin (0.2-1.0) mg/dl AST (13-39) U/L ALT (7-52) U/L Alkaline Phosphatase (34-104) U/L Troponin I High Sens (0-14) pg/ml Total Protein (6.0-8.3) gm/dl Albumin (3.4-5.0) gm/dl Globulin (2.5-4.0) gm/dl Albumin/Globulin Ratio (0.9-2) SARS-CoV-2, RNA, NAAT NEGATIVE (NEGATIVE) Administered Medications Thiamine HCl 100 mg/ Syringe 10 mls @ 2 mls/min IV QAM [facility] Stop: 02/07/23 08:59 Last Admin: 01/08/23 08:04 Dose: 2 mls/min Documented By: RODNEY Folic Acid 1 mg/ Syringe 10 mls @ 5 mls/min IV QAM [facility] Stop: 02/07/23 08:59 Last Admin: 01/08/23 08:05 Dose: 5 mls/min Documented By: RODNEY Lactated Ringer's (Lr) 1,000 mls @ 100 mls/hr IV .Q10H [facility] Stop: 02/07/23 07:29 Last Admin: 01/08/23 18:09 Dose: 100 mls/hr Documented By: Infusion: 01/08/23 18:02 Dose: 100 mls/hr Documented By: Admin: 01/08/23 08:02 Dose: 100 mls/hr Documented By: RODNEY Ondansetron HCl (Ondansetron Inj 2 Mg/Ml 2 Ml Vial) 4 mg IV Q6H PRN PRN Reason: Nausea Stop: 02/07/23 00:21 Last Admin: 01/08/23 02:41 Dose: 4 mg Documented By: LUCI Sertraline HCl (Sertraline Hcl 100 Mg Tablet) 100 mg PO DAILY [facility] Stop: 02/07/23 08:59 Last Admin: 01/08/23 10:05 Dose: 100 mg Documented By: RODNEY Tramadol HCl (Tramadol Hcl 50 Mg Tablet) 50 mg PO Q6H PRN PRN Reason: Mild-Mod Pain (Scale 1-6) Stop: 02/07/23 00:21 Last Admin: 01/08/23 02:09 Dose: 50 mg Documented By: LUCI Discontinued Medications Diphenhydramine HCl (Diphenhydramine 50 Mg/Ml Vial) 6.25 mg IV NOW STA Stop: 01/07/23 23:48 Last Admin: 01/07/23 23:54 Dose: 6.25 mg Documented By: DEJUAN Sodium Chloride (Nss 1000ml) 2,000 mls @ 999 mls/hr IV .Q2H1M [facility] Stop: 01/08/23 00:15 Last Infusion: 01/08/23 00:32 Dose: 0 mls/hr Documented By: Admin: 01/07/23 22:25 Dose: 999 mls/hr Documented By: LAZARO Calcium Gluconate () 1,000 mg in 60 mls @ 240 mls/hr IV NOW STA Stop: 01/07/23 23:25 Last Infusion: 01/07/23 23:46 Dose: 0 mls/hr Documented By: Admin: 01/07/23 23:24 Dose: 240 mls/hr Documented By: DEJUAN Prochlorperazine (Compazine) 1 mls @ 1 mls/min IV ONE ONE Stop: 01/07/23 23:48 Last Admin: 01/07/23 23:54 Dose: 1 mls/min Documented By: DEJUAN Sodium Chloride (Nss 1000ml) 1,000 mls @ 125 mls/hr IV .Q8H [facility] Stop: 02/07/23 00:21 Last Infusion: 01/08/23 04:26 Dose: 0 mls/hr Documented By: Admin: 01/08/23 00:32 Dose: 125 mls/hr Documented By: LUCI Thiamine HCl 100 mg/ Syringe 10 mls @ 2 mls/min IV NOW STA Stop: 01/08/23 04:26 Last Admin: 01/08/23 05:11 Dose: 2 mls/min Documented By: LUCI Folic Acid 1 mg/ Syringe 10 mls @ 5 mls/min IV NOW STA Stop: 01/08/23 04:23 Last Admin: 01/08/23 05:11 Dose: 5 mls/min Documented By: LUCI Potassium Chloride/Sodium Chloride (Normal Saline W/20 Meq Kcl) 20 meq in 1,000 mls @ 100 mls/hr IV .Q10H [facility]; Protocol Stop: 02/07/23 04:29 Last Infusion: 01/08/23 07:50 Dose: 0 mls/hr Documented By: Admin: 01/08/23 05:10 Dose: 100 mls/hr Documented By: LUCI Magnesium Sulfate/Dextrose (Magnesium Sulfate / D5w) 1 gm in 100 mls @ 50 mls/hr IV Q2H [facility] Stop: 01/08/23 15:29 Last Infusion: 01/08/23 16:35 Dose: 0 mls/hr Documented By: Admin: 01/08/23 14:18 Dose: 50 mls/hr Documented By: Infusion: 01/08/23 14:15 Dose: 50 mls/hr Documented By: Admin: 01/08/23 12:15 Dose: 50 mls/hr Documented By: Infusion: 01/08/23 12:05 Dose: 50 mls/hr Documented By: Admin: 01/08/23 10:05 Dose: 50 mls/hr Documented By: Infusion: 01/08/23 10:05 Dose: 50 mls/hr Documented By: Admin: 01/08/23 08:09 Dose: 50 mls/hr Documented By: RODNEY Ondansetron HCl (Ondansetron Inj 2 Mg/Ml 2 Ml Vial) 4 mg IV NOW STA Stop: 01/07/23 22:07 Last Admin: 01/07/23 22:25 Dose: 4 mg Documented By: LAZARO Polyethylene Glycol (Polyethylene (Miralax) 17 Gm Pack) 34 gm PO ONE ONE Stop: 01/08/23 18:11 Last Admin: 01/08/23 18:28 Dose: 34 gm Documented By: RODNEY Discharge Plan Visit Data Chief Complaint: Diarrhea Stated Complaint: Diarrhea, Syncope, Fall ED Provider: Ariel Doe Discharge Problem: Acute dehydration, Diarrhea, Syncope Patient Disposition: Admitted As Inpatient Discharge Instructions Interventions: ED Discharge Assessment Last Done: 01/08/23 00:08
[2023-01-07] MEDS ORDERED: ONDANSETRON INJ 2 MG/ML 2 ML VIAL IV STA (22:06)
[2023-01-07] MEDS ORDERED: SODIUM CHLORIDE 0.9% 1000ML 2,000 ML IV SCH (22:15)
[2023-01-07 22:41] LABS: Basophils # (auto) 0.05 K/uL (0-0.2); Basophils % (auto) 0.4 %; Eosinophils # (auto) 0.01 K/uL (0-0.50); Eosinophils % (auto) 0.1 %; Hematocrit (blood only) 37.3 % (37.0-47.0); Immature Granulocytes # (auto) 0.04 K/uL (0.01-0.20); Immature Granulocytes % (auto) 0.4 %; Lymphocytes # (auto) 1.51 K/uL (1.2-3.4); Lymphocytes % (auto) 13.3 %; Mean Corpuscular Hemoglobin 26.8 pg (25.0-34.0); Mean Corpuscular Hgb Conc 32.2 g/dL (32.0-36.0); Mean Corpuscular Volume 83.3 fL (80.0-100.0); Mean Platelet Volume 9.2 fL (9.4-12.4); Monocytes # (auto) 0.92 K/uL (0.11-0.59); Monocytes % (auto) 8.1 %; Neutrophils # (auto) 8.85 K/uL (1.40-6.50); Neutrophils % (auto) 77.7 %; Platelet Count 315 K/uL (130-400); RDW Coefficient of Variation 20.6 % (11.5-14.5); RDW Standard Deviation 61.6 fL (36.4-46.3); Red Blood Count 4.48 M/uL (4.20-5.40); White Blood Count 11.38 K/ul (4.8-10.8)
[2023-01-07 22:56] LABS: Alanine Aminotransferase 48 U/L (7-52); Albumin Globulin Ratio 1.3 (0.9-2); Albumin Level 4.3 gm/dl (3.4-5.0); Alkaline Phosphatase 113 U/L (34-104); Anion Gap 32 (3-11); Aspartate Aminotransferase 123 U/L (13-39); BUN Creatinine Ratio 25.6 (10-20); Bilirubin,Total 1.3 mg/dl (0.2-1.0); Blood Urea Nitrogen 22 mg/dl (6-23); Calcium 8.5 mg/dl (8.6-10.3); Carbon Dioxide 12 mmol/L (21-32); Chloride 92 mmol/L (98-107); Est GFR (Non-African American) 69.9 ml/min; Globulin 3.4 gm/dl (2.5-4.0); Glucose 62 mg/dl (70-99(Fasting)); Potassium 4.7 mmol/L (3.5-5.1); Sodium 136 mmol/L (136-145); Total Protein 7.7 gm/dl (6.0-8.3)
[2023-01-07 22:57] LABS: Anisocytosis Present
[2023-01-07 23:02] LABS: Troponin I High Sensitivity 8.1 pg/ml (0-14)
[2023-01-07] MEDS ORDERED: CALCIUM GLUCONATE 1,000 MG/60 ML BAG IV STA (23:11)
[2023-01-07 23:35] LABS: Magnesium 1.9 mg/dl (1.7-2.4)
[2023-01-07] MEDS ORDERED: PROCHLORPERAZINE 1 ML IV ONE (23:47)
[2023-01-07] MEDS ORDERED: diphenhydrAMINE 50 MG/ML VIAL IV STA (23:47)
--- NOTE | 2023-01-07 23:49 | History & Physical Report ---
Date of Service January 07, 2023 Assessment & Plan (1) Alcohol use disorder: (2) Vitamin D deficiency: (3) Anorexia: (4) Diarrhea: (5) Hypoglycemia: (6) Abnormal LFTs: (7) High anion gap metabolic acidosis: Plan Diarrhea/dehydration Patient reports at least 6 weeks of diarrhea, that worsened over the past week Patient appears very dehydrated She is status post 2 L of normal saline in the ED We will give additional liter of normal saline at a high 50 mils per hour, and then changed to normal saline plus KCl 20 mEq at 100 mils per hour Follow serial CBC with differential, renal function panel, magnesium and phosphorus levels Full liquid diet and will advance as tolerated Hold pantoprazole, hydroxyzine and HCTZ Alcohol use disorder/alcoholism- Similar presentation to admission on 10/22/2022 Thiamine 100 mg IV now and every morning Folic acid 1 mg IV now and every morning AWSS protocol with IV Ativan Cessation counseling GERD- Famotidine 20 mg IV every 12 hours abnormal LFTs- AST 123, total bilirubin 1.3 Follow serially hypoglycemia- Glucose 62 on admission, with repeat 123 encourage better oral intake anxiety/depression- Continue sertraline, quetiapine History of Present Illness Chief Complaint: The patient presents to the emergency department with complaint of diarrhea that has been ongoing for the past 6 weeks, has worsened over the past week, Causing her to be fatigued, feeling dehydrated with no stimulation for food or liquid intake, similar to her presentation. Primary Care Provider: Emily Diehl the patient is a 67-year-old female with a past medical history including alcohol use disorder, vitamin D deficiency, syncope, chronic diarrhea, hypomagnesemia, hypoglycemia. She presents to the emergency department with similar presentation to admission on 10/22/2022, where she was noted to have averaging 8-10 drinks daily. She admits to 2 drinks on the day of admission, and similar intake as previously over the past months. Significant laboratories: AST 123, total bilirubin 1.3Glucose 62, sodium 136, potassium 4.7, chloride 92, bicarb 12, BUN 32 and creatinine 0.86. Anion gap is calculated at 32 from the ED the patient received the following: Normal saline 2 L, calcium gluconate 1 g IV and Zofran 4 mg IV. Allergies Allergy/AdvReac Type Severity Reaction Status Date / Time No Known Allergies Allergy Verified 01/07/23 23:03 Home Medications Medication Instructions Recorded Confirmed Type quetiapine 100 mg tablet 100 mg PO HS 10/22/22 01/07/23 History hydrochlorothiazide 25 mg tablet 25 mg PO QAM 01/07/23 01/07/23 History hydroxyzine pamoate 100 mg capsule 100 mg PO HS 01/07/23 01/07/23 History pantoprazole 20 mg tablet,delayed 0 mg PO DAILY 01/07/23 01/07/23 History release (Protonix) sertraline 100 mg tablet (Zoloft) 100 mg PO DAILY 01/07/23 01/07/23 History tramadol 50 mg tablet 50 mg PO Q6H PRN Pain 01/07/23 01/07/23 History Past Med/Surg History Medical History (Updated 01/08/23 @ 04:29 by Brandon Hansen MD) Cholelithiasis No pertinent family history Surgical History (Updated 10/22/22 @ 05:47 by Amanda Lovell DO) H/O: hysterectomy History of cholecystectomy Social History Smoking Status: Never smoker Second Hand Exposure: No; Do You Dip or Chew Tobacco: No; Tobacco Cessation Education Requested by Patient: No Hx Alcohol Use: Yes Alcohol type: hard liquor Hx Substance Use: No Preferred Language: Luxembourgish Communication Ability: Effective Brim Greaser Operator Required: No Beliefs That Will Affect Care: None Current Living Situation: Alone Other Information That Helps Us Care for You: No Feels Safe at Home: Yes Safety Concerns: Feels Safe At This Time Assistive Devices: Cane and Walker Review of Systems Review of Systems: The patient denies chest pain, palpitations, shortness of breath, dyspnea on exertion, cough, lower extremity swelling, sore throat, fevers, chills, sweats, blood in urine or stool, dysuria, urinary frequency or urgency, lightheadedness, dizziness, headache, memory loss, loss of consciousness, rash, abnormal bruising or bleeding, imbalance, focal weakness, numbness or tingling in arms or legs, generalized arthralgias or myalgias, back or neck pain, or night sweats. The review of systems is otherwise negative other than for that already noted above, and at least 10 systems have been reviewed. Physical Exam Physical Exam: The patient is awake, alert and oriented 3, well developed and well nourished, normocephalic and atraumatic, lying in bed and in no acute distress. HEENT--PERRL, EOMI, mucous membranes and oropharynx dry. Neck--supple. No JVD. No bruits. Thyroid normal, trachea midline, no adenopathy. Heart--normal S1 and S2. No murmurs, rubs or gallops. Lungs--clear bilaterally, no respiratory distress, no accessory muscle use. Abdomen--normal bowel sounds and soft. Nontender. Nondistended, no hernias or masses, no organomegaly. Extremities--no cyanosis or clubbing. No edema. There are good distal pulses b/l. Dermatologic--normal skin turgor, normal color, no abnormal lymph nodes, no rash. Neurologic--cranial nerves II through XII grossly intact. Rheumatologic--normal range of motion. Psychiatric--normal affect. Results & Data Results & Data Vital Signs (Past 12 Hours) Vital Signs Temp Pulse Resp BP Pulse Ox O2 Del Method 01/07/23 22:40 108 H 17 98 01/07/23 22:30 20 96 01/07/23 22:20 115 H 19 97 01/07/23 22:10 121 H 16 94 01/07/23 22:00 107 H 18 99 01/07/23 22:31 96 Room Air 01/07/23 21:57 37 C 01/07/23 21:57 37 C 110 H 15 133/98 99 Laboratory Results Laboratory Results WBC 11.38 K/ul (4.8-10.8) H 01/07/23 22:22 RBC 4.48 M/uL (4.20-5.40) 01/07/23 22:22 Hgb 12.0 g/dl (12.0-16.0) 01/07/23 22: Hct 37.3 % (37.0-47.0) 01/07/23 22: MCV 83.3 fL (80.0-100.0) 01/07/23 22: MCH 26.8 pg (25.0-34.0) 01/07/23 22: MCHC 32.2 g/dL (32.0-36.0) 01/07/23: RDW Std Deviation 61.6 fL (36.4-46.3) H 01/07/23 22:22 RDW Coeff of Cate 20.6 % (11.5-14.5) H 01/07/23 22: Plt Count 315 K/uL (130-400) 01/07/23 22:22 MPV 9.2 fL (9.4-12.4) L 01/07/23 22:22 Immature Gran % (Auto) 0.4 % 01/07/23 22: Neut % (Auto) 77.7 % 01/07/23 22:22 Lymph % (Auto) 13.3 % 01/07/23 22:22 Patrick % (Auto) 8.1 % 01/07/23 22:22 Eos % (Auto) 0.1 % 01/07/23 22: Baso % (Auto) 0.4 % 01/07/23 22: Neut # (Auto) 8.85 K/uL (1.40-6.50) H 01/07/23 22:22 Lymph # (Auto) 1.51 K/uL (1.2-3.4) 01/07/23 22:22 Patrick # (Auto) 0.92 K/uL (0.11-0.59) H 01/07/23 22:22 Eos # (Auto) 0.01 K/uL (0-0.50) 01/07/23 22:22 Baso # (Auto) 0.05 K/uL (0-0.2) 01/07/23 22: Immature Gran # (Auto) 0.04 K/uL (0.01-0.20) 01/07/23 22:22 Anisocytosis Present 01/07/23 22:22 Sodium 136 mmol/L (136-145) 01/07/23 22:22 Potassium 4.7 mmol/L (3.5-5.1) 01/07/23 22:22 Chloride 92 mmol/L (98-107) L 01/07/23 22:22 Carbon Dioxide 12 mmol/L (21-32) L 01/07/23 22:22 Anion Gap 32 (3-11) H 01/07/23 22:22 BUN 22 mg/dl (6-23) 01/07/23 22:22 Creatinine 0.86 mg/dl (0.6-1.2) 01/07/23 22:22 Est Cr Clr Drug Dosing Not Reportable 01/07/23 22:22 Est GFR ( Amer) 81.0 ml/min 01/07/23 22:22 Est GFR (Non-Af Amer) 69.9 ml/min 01/07/23 22:22 BUN/Creatinine Ratio 25.6 (10-20) H 01/07/23 22:22 Glucose 62 mg/dl (70-99(Fasting)) L 01/07/23 22:22 POC Glucose 120 mg/dl (70-99) H 01/08/23 00:04 Calcium 8.5 mg/dl (8.6-10.3) L 01/07/23 22:22 Magnesium 1.9 mg/dl (1.7-2.4) 01/07/23 22:22 Total Bilirubin 1.3 mg/dl (0.2-1.0) H 01/07/23 22:22 AST 123 U/L (13-39) H 01/07/23 22:22 ALT 48 U/L (7-52) 01/07/23 22:22 Alkaline Phosphatase 113 U/L (34-104) H 01/07/23 22:22 Troponin I High Sens 8.1 pg/ml (0-14) 01/07/23 22:22 Total Protein 7.7 gm/dl (6.0-8.3) 01/07/23 22:22 Albumin 4.3 gm/dl (3.4-5.0) 01/07/23 22:22 Globulin 3.4 gm/dl (2.5-4.0) 01/07/23 22:22 Albumin/Globulin Ratio 1.3 (0.9-2) 01/07/23 22:22 SARS-CoV-2, RNA, NAAT NEGATIVE (NEGATIVE) 01/07/23 22:26 Code Status & VTE Plan Code Status Full code VTE Prophylaxis Plan VTE Prophylaxis will be ordered: Yes PG Care Time/CCT Total # of Minutes Spent Total Time Spent with Patient: Total time spent is greater than 50% in coordination of care (as documented) at patient's floor/unit and/or counseling patient: Coding Level of Care Code 06578 INT INP/OBS CARE 3/75MIN Diagnoses Alcohol use disorder F10.90 Vitamin D deficiency E55.9 Anorexia R63.0 Diarrhea R19.7 Hypoglycemia E16.2 Abnormal LFTs R79.89 High anion gap metabolic acidosis E87.29
[2023-01-08] MEDS ORDERED: ONDANSETRON INJ 2 MG/ML 2 ML VIAL IV PRN (00:22)
[2023-01-08] MEDS ORDERED: SODIUM CHLORIDE 0.9% 1000ML 1,000 ML IV SCH (00:22)
[2023-01-08] MEDS ORDERED: traMADol HCL 50 MG TABLET PO PRN (00:22)
[2023-01-08] MEDS ORDERED: ACETAMINOPHEN 325 MG TAB PO PRN (00:22)
[2023-01-08] MEDS ORDERED: Ativan IV Alcohol Withdrawal--Active Protocol IV PRN (04:22)
[2023-01-08] MEDS ORDERED: LORazepam 2 MG/1 ML VIAL IV PRN ×3 (04:22)
[2023-01-08] MEDS ORDERED: FOLIC ACID 1 MG in SYRINGE 9.8 ML IV STA (04:22)
[2023-01-08] MEDS ORDERED: THIAMINE HCL 100 MG in SYRINGE 9 ML IV STA (04:22)
[2023-01-08] MEDS ORDERED: NSS + 20MEQ KCL 20 MEQ/1,000 ML BAG IV SCH (04:30)
[2023-01-08 05:06] LABS: Basophils # (auto) 0.02 K/uL (0-0.2); Basophils % (auto) 0.2 %; Eosinophils # (auto) 0.01 K/uL (0-0.50); Eosinophils % (auto) 0.1 %; Hematocrit (blood only) 27.7 % (37.0-47.0); Immature Granulocytes # (auto) 0.04 K/uL (0.01-0.20); Immature Granulocytes % (auto) 0.4 %; Lymphocytes # (auto) 0.35 K/uL (1.2-3.4); Lymphocytes % (auto) 3.4 %; Mean Corpuscular Hemoglobin 26.7 pg (25.0-34.0); Mean Corpuscular Hgb Conc 32.5 g/dL (32.0-36.0); Mean Corpuscular Volume 82.2 fL (80.0-100.0); Mean Platelet Volume 9.1 fL (9.4-12.4); Monocytes # (auto) 1.31 K/uL (0.11-0.59); Monocytes % (auto) 12.7 %; Neutrophils # (auto) 8.56 K/uL (1.40-6.50); Neutrophils % (auto) 83.2 %; Platelet Count 214 K/uL (130-400); RDW Standard Deviation 59.8 fL (36.4-46.3); Red Blood Count 3.37 M/uL (4.20-5.40); White Blood Count 10.29 K/ul (4.8-10.8)
[2023-01-08 05:16] LABS: Albumin Globulin Ratio 1.5 (0.9-2); Albumin Level 3.5 gm/dl (3.4-5.0); BUN Creatinine Ratio 25.8 (10-20); Bilirubin,Total 1.1 mg/dl (0.2-1.0); Calcium 7.3 mg/dl (8.6-10.3); Creatinine Clr Calc Pharmacy 71.4 ml/min; Est GFR (African American) 105.9 ml/min; Est GFR (Non-African American) 91.4 ml/min; Globulin 2.4 gm/dl (2.5-4.0); Magnesium 1.3 mg/dl (1.7-2.4); Phosphorus 2.7 mg/dl (2.5-4.9); Potassium 5.3 mmol/L (3.5-5.1); Total Protein 5.9 gm/dl (6.0-8.3)
[2023-01-08] MEDS: LACTATED RINGER'S 1,000 ML IV SCH ×2 (08:02→18:09)
[2023-01-08] MEDS: THIAMINE HCL 100 MG in SYRINGE 9 ML IV SCH (08:04)
[2023-01-08] MEDS: FOLIC ACID 1 MG in SYRINGE 9.8 ML IV SCH (08:05)
[2023-01-08] MEDS: MAGNESIUM SULFATE / D5W 1 GM/100 ML BAG IV SCH ×4 (08:09→14:18)
[2023-01-08 09:51] LABS: Adenovirus F 40/41 PCR Not Detected (NotDetected); Astrovirus PCR Not Detected (NotDetected); Campylobacter PCR Not Detected (NotDetected); Cryptosporidium PCR Not Detected (NotDetected); Cyclospora cayetanensis PCR Not Detected (NotDetected); Entamoeba histolytica PCR Not Detected (NotDetected); Enteroaggregative E.coli(EAEC) Not Detected (NotDetected); Enteropathogenic E.coli (EPEC) Not Detected (NotDetected); Enterotoxigenic E.coli (ETEC) Not Detected (NotDetected); Giardia lamblia PCR Not Detected (NotDetected); Norovirus GI/GII PCR Not Detected (NotDetected); Plesiomonas shigelloides PCR Not Detected (NotDetected); Rotavirus A PCR Not Detected (NotDetected); Salmonella PCR Not Detected (NotDetected); Sapovirus PCR Not Detected (NotDetected); Shiga-like Toxin E.coli (STEC) Not Detected (NotDetected); Shigella/Enteroinvasive E.coli Not Detected (NotDetected); Vibrio cholerae PCR Not Detected (NotDetected); Vibrio species PCR Not Detected (NotDetected); Yersinia enterocolitica PCR Not Detected (NotDetected)
[2023-01-08] MEDS: SERTRALINE HCL 100 MG TABLET PO SCH (10:05)
--- NOTE | 2023-01-08 10:28 | Hospitalist Progress Note ---
Date of Service January 08, 2023 Assessment & Plan (1) Alcohol use disorder: Plan: 67 F with pmh AUD, syncope, chronic diarrhea, hiatal hernia, and GERD, presenting with weakness, possible syncopal episode, and at least 6 weeks of waxing and waning diarrhea. #Weakness Likely vasovagal episode with weakness secondary to dehydration, poor diet, intoxication. - Continue NS - PT/OT consult #Diarrhea/dehydration Patient reports at least 6 weeks of diarrhea, that worsened over the past week. Patient appears very dehydrated. Likely overflow diarrhea secondary to chronic constipation. - Follow serial CBC with differential, renal function panel, magnesium and phosphorus levels - Miralax 34 mg BID - Full liquid diet and will advance as tolerated #Alcohol Use Disorder Similar presentation to admission on 10/22/2022 - Thiamine 100 mg IV now and every morning - Folic acid 1 mg IV now and every morning - Cessation counseling #Gastritis Burning pain, hx of GERD, and alcohol use disorder suggest gastritis. -Pantroprazole BID -Famotadine BID -Maalox #GERD - Famotidine 20 mg IV every 12 hours #Abnormal LFTs LFT have trended down. #Hypoglycemia - Encourage better oral intake #Anxiety/depression - Continue sertraline, quetiapine FULL CODE DVT: Lovanox FEN: Full diet Dispos: medicine (2) Vitamin D deficiency: (3) Anorexia: (4) Diarrhea: Plan: She has a poor diet. 1 to 2 meals per day that consist of mostly fruit and cheese. She has a hiatal hernia. She is s/p gastric bypass. She has had multiple abdomen surgeries: cholecystectomy, hysterectomy. She drinks 2 bottles of liquor per week. Could have IBS. (5) Hypoglycemia: (6) Abnormal LFTs: (7) High anion gap metabolic acidosis: Admission and Anticipated Discharge Date Admission Date: January 07, 2023 Supervising Physician Co-Signing Physician Notes I personally examined the patient and verified all galo points of history and exam, discussed case, and agree with decision making with Alecia Wyatt MS4 and Dr Gomez diarrhea. heartburn. weak vitals noted nad heent nc at mmm breathing unlabored no accessory muscles. abd soft mild epigastric ttp no guarding no rebound, abd mild distention mild L firm/fullness c/w feces diarrhea - suspect overflow. explained. miralax. follow. EtOH cessation nausea - suspect multifactorial (etoh and hiatal hernia) gastritis. aggressive acid suppression. EtOH cessation EtOH abuse - denies drinking to self medicate for anxiety/depression. has naltrexone but doesn't always take. encouraged to do so, and to revisit IM weakness - PT/OT eval and treat - may need rehab. doesn't think she's safe to go home in current state Subjective No acute events overnight. Today, the patient reports 2 formed stools in the morning and 3 episodes of diarrhea throughout the rest of the day. Her stool history includes she feels like up to a year she has had waxing and waning episodes of diarrhea and formed stools. Up to 3 times a month, her diarrhea wakes her from sleep. She has a hiatal hernia and routinely feels a burning in her chest. She has a hx of GERD with a EGD scheduled for the end of the month. She feels very weak today and is using a bedside commode rather than going to the restroom. She does not feel steady enough to walk the halls. She has attempted using naltrexone in the past for Alcohol use disorder but has not been taking it. She is open to exploring alternatives for treatment and management. Review of Systems Constitutional: Denied fever, night sweats, dizziness. Endorses weakness, fatigue. Eyes: Denied blurry vision Respiratory: Denied cough or shortness of breath. Cardiovascular: Additional Comments: Denied chest pain, palpitations Gastrointestinal: Denied vomiting, and abdominal. Endorses nausea, and diarrhea Neurologic: Endorses weakness. Denies numbness, or tingling. Physical Exam Constitutional: Alert and oriented x3 in hopsital bed Eyes: Pupils were equal, normal shape, and reactive. Neck: Respiratory: CTA, no increased work of breathing Cardiovascular: Normal rate and regular rhythm. S1 S2, no m/r/g. Radial pulses equal b/l. Capillary refill less than 2 sec. Gastrointestinal (Abdomen): mildly distended on the left side > right side, nontender, normoactive bowel sounds. Musculoskeletal: Moves all extremities Skin: Warm dry, no apparent rashes. Psychiatric: Appropriate mood and affect. Lymphatic: No lymphadenopathy in the neck and cervical region. Results & Data Results & Data Vital Signs (Past 12 Hours) Vital Signs Temp Pulse Pulse Resp BP Pulse Ox O2 Del Method 01/08/23 08:16 36.6 C 94 H 20 120/80 96 Room Air 01/08/23 07:57 101 H 01/08/23 03:19 36.9 C 107 H 20 145/83 H 97 Room Air 01/08/23 00:34 37.2 C 112 H 16 139/80 96 Room Air 01/08/23 00:27 37.2 C 112 H 18 139/80 96 Room Air 01/07/23 22:40 108 H 17 98 01/07/23 22:30 20 96 01/07/23 22:31 96 Room Air
[2023-01-08] MEDS ORDERED: ALUMINUM/MAGNESIUM SUSP 30 ML UDC PO PRN (17:51)
[2023-01-08] MEDS ORDERED: POLYETHYLENE (MIRALAX) 17 GM PACK PO ONE (18:10)
[2023-01-08] MEDS ORDERED: ENOXAPARIN INJ 40 MG/0.4 ML SYR SQ SCH (19:00)
--- NOTE | 2023-01-08 19:12 | Billing Data ---
Date of Service January 08, 2023 Coding Level of Care Code 59072 SUB INP/OBS CARE MIN
[2023-01-08] MEDS ORDERED: hydrOXYzine HCl 25 MG TAB PO SCH (21:00)
[2023-01-08] MEDS ORDERED: QUEtiapine FUMARATE 100 MG TABLET PO SCH (21:00)
[2023-01-08] MEDS: POLYETHYLENE (MIRALAX) 17 GM PACK PO SCH (21:15)
[2023-01-08] MEDS: PANTOprazole 40 MG TAB PO SCH (21:16)
[2023-01-08] MEDS: FAMOTIDINE 20 MG TAB PO SCH (21:17)
[2023-01-09] MEDS: LACTATED RINGER'S 1,000 ML IV SCH ×2 (03:35→09:33)
[2023-01-09 06:33] LABS: Hematocrit (blood only) 26.9 % (37.0-47.0); Hemoglobin 9.1 g/dl (12.0-16.0); Mean Corpuscular Hemoglobin 26.4 pg (25.0-34.0); Mean Corpuscular Hgb Conc 33.8 g/dL (32.0-36.0); Mean Corpuscular Volume 79.7 fL (80.0-100.0); Mean Platelet Volume 9.2 fL (9.4-12.4); Platelet Count 175 K/uL (130-400); RDW Coefficient of Variation 20.1 % (11.5-14.5); RDW Standard Deviation 55.4 fL (36.4-46.3); Red Blood Count 3.45 M/uL (4.20-5.40)
[2023-01-09 06:43] LABS: Albumin Globulin Ratio 1.3 (0.9-2); Bilirubin,Total 0.9 mg/dl (0.2-1.0); Calcium 8.1 mg/dl (8.6-10.3); Creatinine Clr Calc Pharmacy 85.3 ml/min; Est GFR (African American) 109.3 ml/min; Est GFR (Non-African American) 94.3 ml/min; Globulin 2.3 gm/dl (2.5-4.0); Magnesium 2.2 mg/dl (1.7-2.4); Potassium 3.7 mmol/L (3.5-5.1); Total Protein 5.3 gm/dl (6.0-8.3)
[2023-01-09 06:47] LABS: Anisocytosis Present; Basophils # (auto) 0.01 K/uL (0-0.2); Basophils % (auto) 0.2 %; Eosinophils # (auto) 0.08 K/uL (0-0.50); Eosinophils % (auto) 1.5 %; Immature Granulocytes # (auto) 0.02 K/uL (0.01-0.20); Immature Granulocytes % (auto) 0.4 %; Lymphocytes # (auto) 1.88 K/uL (1.2-3.4); Lymphocytes % (auto) 34.2 %; Monocytes # (auto) 0.46 K/uL (0.11-0.59); Monocytes % (auto) 8.4 %; Neutrophils # (auto) 3.05 K/uL (1.40-6.50); Neutrophils % (auto) 55.3 %
[2023-01-09] MEDS: THIAMINE HCL 100 MG in SYRINGE 9 ML IV SCH (09:20)
[2023-01-09] MEDS: FOLIC ACID 1 MG in SYRINGE 9.8 ML IV SCH (09:20)
[2023-01-09] MEDS: POLYETHYLENE (MIRALAX) 17 GM PACK PO SCH (09:21)
[2023-01-09] MEDS: FAMOTIDINE 20 MG TAB PO SCH (09:21)
[2023-01-09] MEDS: PANTOprazole 40 MG TAB PO SCH (09:21)
[2023-01-09] MEDS: SERTRALINE HCL 100 MG TABLET PO SCH (09:21)
--- NOTE | 2023-01-09 14:08 | Discharge Summary ---
Date of Service January 09, 2023 Admission HPI Per Admitting Provider The patient is a 67-year-old female with a past medical history including alcohol use disorder, vitamin D deficiency, syncope, chronic diarrhea, hypomagnesemia, hypoglycemia. She presents to the emergency department with similar presentation to admission on 10/22/2022, where she was noted to have averaging 8-10 drinks daily. She admits to 2 drinks on the day of admission, and similar intake as previously over the past months. Significant laboratories: AST 123, total bilirubin 1.3Glucose 62, sodium 136, potassium 4.7, chloride 92, bicarb 12, BUN 32 and creatinine 0.86. Anion gap is calculated at 32 from the ED the patient received the following: Normal saline 2 L, calcium gluconate 1 g IV and Zofran 4 mg IV. Principal Diagnosis Weakness Discharge Exam Constitutional Afebrile, AOx3, Eyes PEERLA Respiratory CTA, no labored breathing Cardiovascular Regular rhythm and normal rate, S1 S2 no r/m/g, Radial pulses equal b/l. Gastrointestinal (Abdomen) nd/nt/hyperactive bowel sounds Skin warm and dry, no apparent rashes Neurologic No focal neurological deficits Psychiatric Mood and affect appropriate Discharge Data Allergies Allergy/AdvReac Type Severity Reaction Status Date / Time No Known Allergies Allergy Verified 01/07/23 23:03 Consultations 01/07/23 23:11 ED Decision to Admit Stat Hospital Course (1) Alcohol use disorder: 67 F with pmh AUD, syncope, chronic diarrhea, hiatal hernia, and GERD, presenting with weakness, possible syncopal episode, and at least 6 weeks of waxing and waning diarrhea. Weakness Came to the ER following fall from standing up from the toilet. Appeared very dehydrated in the ER. PT/OT evaluation recommended safe to return home, suggested outpatient PT. Gastritis Burning pain, hx of GERD, and alcohol use disorder suggest gastritis. EGD evaluation at the end of this month. Pantoprazole, Famotidine, Maalox provided. Follow up with PCP. Alcohol Use Disorder Hx of AUD. Blood alcohol level of 90 in ER Fluids were repleted. Thiamine and Folic Acid supplemented. Cessation counseling provided. Reported not taking naltrexone, recommended to switch back to injection in outpt. Diarrhea Patient reports at least 6 weeks of diarrhea, that worsened over the past week. Patient appeared very dehydrated. Was given IVF in the ER. Described it as mix of solids and liquids. Likely overflow diarrhea secondary to chronic constipation. Prescribed Miralax everyday for regulation. Chronic Conditions: GERD Famotidine 20 mg IV every 12 hours Anxiety/depression Continue home sertraline, quetiapine (2) Vitamin D deficiency: (3) Anorexia: (4) Diarrhea: She has a poor diet. 1 to 2 meals per day that consist of mostly fruit and chees e. She has a hiatal hernia. She is s/p gastric bypass. She has had multiple abdomen surgeries: cholecystectomy, hysterectomy. She drinks 2 bottles of liquor per week. Could have IBS. (5) Hypoglycemia: (6) Abnormal LFTs: (7) High anion gap metabolic acidosis: Total Time Total Time Spent Total Time Spent (In Minutes): <30 Discharge Plan Discharge Items Patient Disposition: Home - Self-Care Reason For Visit: SYNCOPE, HYPOGLYCEMIA Discharge Diagnosis: syncope, diarrhea, alcohol use disorder Activity: Per Instructions section Non-emergency contact: Primary Care Provider Call non-emergency contact if: you have any medication questions and your symptoms worsen Follow-up/Referrals: Emily Diehl PA-C [Primary Care Provider] - 01/16/23 9:05 am (PCP follow up: 01/16/23 9:05am) Diet: Regular Addtl Attending Provider Instructions: You were admitted to the hospital for an episode of passing out (syncope) in association with prolonged diarrhea. You were treated with IV fluids. Your syncopal episode was most likely due to a vasovagal episode (sometimes when you are straining while having a bowel movement and "bearing down" this can cause a reaction that makes you pass out) in association with dehydration. In terms of your diarrhea, this appears to be most likely linked to what is called overflow diarrhea. When people are chronically constipated, sometimes the stool will become liquid and flow around the hardened stool stuck in your bowels. This causes the appearance of diarrhea but you are actually constipated. Concerning your alcohol use, you should discuss abstinence with your primary care physician. There are medications that can help you become and stay alcohol- free. A discharge summary will be sent to your primary care physician to ensure continuity of care. Please bring this discharge summary with you to your next office appointment so that your provider can review it at that time. Medications: Your medication list has been reviewed and reconciled upon discharge to ensure accuracy and continuity of care. An updated list of all your medications is included with your hospital discharge paperwork. Please review this list closely and make note of any changes to your medications. - You should continue taking daily supplements of thiamine and folate. This will help prevent brain effects of chronic alcohol use. - You should also continue taking protonix twice per day and pepcid twice per day. You should discuss continuation of these medications with your PCP at your follow up. - You should continue to take miralax daily (or possibly twice per day) to keep your bowels regular. You should adjust your miralax dosing based upon the previous day's bowel movements. Follow up appointments: - Make a follow up appointment with your PCP within the next week. It is very important that you follow up with them shortly after discharge from the hospital. - Keep all of your follow up appointments as already scheduled. If you cannot make an appointment, notify your provider. CONTACT YOUR PRIMARY CARE PROVIDER if you experience any of the following: - Difficulty following your treatment plan - Difficulty taking any of your medications CALL 911 OR GO TO THE EMERGENCY DEPARTMENT if you experience any of the following: - Repeat syncopal episodes - Sudden, severe abdominal pain or nausea/vomiting - Severe chest pain or chest pain that radiates to your jaw or arm - Sudden, severe shortness of breath or difficulty breathing Pending Studies at Discharge: No Stand-Alone Forms: My [facility], Smoking Cessation Medications and DC Order Prescriptions: New folic acid 1 mg Tablet 1 mg PO DAILY Qty: 90 0RF thiamine HCl (vitamin B1) 100 mg Tablet 100 mg PO DAILY Qty: 90 0RF famotidine 20 mg Tablet 20 mg PO BID Qty: 60 0RF pantoprazole 40 mg Tablet,Delayed Release (Dr/Ec) 40 mg PO BID Qty: 60 0RF Continued quetiapine 100 mg tablet 100 mg PO HS hydroxyzine pamoate 100 mg Capsule 100 mg PO HS sertraline [Zoloft] 100 mg Tablet 100 mg PO DAILY tramadol 50 mg tablet 50 mg PO Q6H PRN (Reason: Pain) hydrochlorothiazide 25 mg tablet 25 mg PO QAM Discontinued pantoprazole [Protonix] 20 mg Tablet,Delayed Release (Dr/Ec) 0 mg PO DAILY Rx Instructions: PT UNSURE OF STRENGTH, UNABLE TO VERIFY. Discharge Orders: Discharge Order (Routine); Ordered 07/06/23 Ordered By: Esther Gomez Admission Data Admit Date/Time: 01/07/23 23:48 Attending Provider: George Snyder Admit Provider: Brandon Hansen Primary Care Provider: Emily Diehl Other Providers: Brandon Hansen Other Interventions: Discharge Summary Assessment (RN) Last Done: 01/09/23 15:54 Supervising Physician Co-Signing Physician Notes I personally examined the patient and verified all galo points of history and exam, discussed case, and agree with decision making with Alecia Wyatt MS4 and Dr Gomez Diarrheamore wateryprobably related to MiraLAX. Did extremely well with PT. vitals noted nad heent nc at mmm breathing unlabored no accessory muscles. Skin no rashes, no pallor or icterus. diarrhea - suspect overflow. explained. miralax daily as an outpatient. follow-up in the office next weekstill expect this to be overflow and it should improve, but I definitely want close clinical follow-up so she has physician level guidance if things are not behaving as expected. follow. EtOH cessation nausea - suspect multifactorial (etoh and hiatal hernia) gastritis. aggressive acid suppression. Outpatient follow-up and upper GI work-up later this month, hopefully next week in the office if her symptoms are somewhat improved the Pepcid can be stopped. EtOH cessation EtOH abuse - denies drinking to self medicate for anxiety/depression. has naltrexone but doesn't always take. encouraged to do so, and to revisit IM to improve adherence weakness - PT/OT eval and treat - did surprisingly well, safe for home. Discharge. To follow-up with PCP next week
--- NOTE | 2023-01-09 19:05 | Billing Data ---
Date of Service January 09, 2023 Coding Level of Care Code 73744 IN/OBS DISCH 30 MIN/LESS
--- NOTE | 2023-01-09 19:06 | Billing Data ---
Date of Service January 09, 2023 Coding Level of Care Code 14036 IN/OBS DISCH 30 MIN/LESS
--- NOTE | 2023-01-10 05:46 | Electrocardiogram Report ---
Test Reason : Blood Pressure : / mmHG Vent. Rate : 107 BPM Atrial Rate : 107 BPM P-R Int : 166 ms QRS Dur : 082 ms QT Int : 342 ms P-R-T Axes : 016 -24 071 degrees QTc Int : 456 ms Sinus tachycardia Minimal voltage criteria for LVH, may be normal variant Borderline ECG When compared with ECG of 22-OCT-2022 01:05, Nonspecific T wave abnormality no longer evident in Inferior leads Confirmed by Hector Conteh ([id number]) on 01/10/2023 5:46:29 AM Referred By: REFERRED SELF Confirmed By:Hector Conteh
--- NOTE | 2023-01-10 06:09 | Electrocardiogram Report ---
Test Reason : Blood Pressure : / mmHG Vent. Rate : 097 BPM Atrial Rate : 097 BPM P-R Int : 166 ms QRS Dur : 084 ms QT Int : 398 ms P-R-T Axes : 018 -23 002 degrees QTc Int : 505 ms Normal sinus rhythm Minimal voltage criteria for LVH, may be normal variant Nonspecific T wave abnormality Prolonged QT Abnormal ECG When compared with ECG of 07-JAN-2023 21:55, T wave inversion now evident in Inferior leads QT has lengthened Confirmed by Hector Conteh ([id number]) on 01/10/2023 6:08:46 AM Referred By: REFERRED SELF Confirmed By:Hector Conteh
[2023-01-10] MEDS ORDERED: THIAMINE HCL 100 MG TAB PO SCH (09:00)
[2023-01-10] MEDS ORDERED: FOLIC ACID 1 MG TAB PO SCH (09:00)
== END 2023-01-09 16:19 | disposition home or self-care (01) ==
LOC: 4W 21:49 → ED 21:49 → SUATTDRO 23:48 → 4W 01-08 00:08
DX: Z90.49 Acquired absence of other specified parts of digestive tract; Z68.25 Body mass index [BMI] 25.0-25.9, adult; F32.A Depression, unspecified; Z20.822 Contact with and (suspected) exposure to COVID-19; K44.9 Diaphragmatic hernia without obstruction or gangrene; Z98.84 Bariatric surgery status; K29.70 Gastritis, unspecified, without bleeding; Y90.4 Blood alcohol level of 80-99 mg/100 ml; E55.9 Vitamin D deficiency, unspecified; R63.0 Anorexia; R79.89 Other specified abnormal findings of blood chemistry; Y92.002 Bathroom of unspecified non-institutional (private) residence as the place of occurrence of the external cause; E16.2 Hypoglycemia, unspecified; E87.29 Other acidosis; F41.9 Anxiety disorder, unspecified; K21.9 Gastro-esophageal reflux disease without esophagitis; R55 Syncope and collapse; F10.90 Alcohol use, unspecified, uncomplicated; W18.30XA Fall on same level, unspecified, initial encounter; K52.9 Noninfective gastroenteritis and colitis, unspecified; Z79.899 Other long term (current) drug therapy; Y93.E8 Activity, other personal hygiene

== ENCOUNTER 2023-03-04 20:09 | Inpatient (IN) ==
--- NOTE | 2023-03-04 20:49 | Emergency Department Note ---
History of Present Illness General Chief complaint: Back Injury/Pain Stated complaint: BACK PAIN Time Seen by Provider: 03/04/23 20:20 History of Present Illness Maximum Pain Intensity: 7 67-year-old female presents emergency department with complaint of back pain generalized weakness nausea and diarrhea that started last evening. Patient denies any specific vomiting currently denies hematemesis denies substernal chest pressure states that she had some spasms in between her mid scapular region. Patient denies shortness of breath. Patient's had a prior history of a similar presentation. Patient does admit to drinking alcohol. Patient also admits to chronic diarrhea. Patient states that she is improved currently. Patient has no other complaints. Patient had prior admission for similar episode Home Medications Medication Instructions Recorded Confirmed Type quetiapine 100 mg tablet 100 mg PO HS 10/22/22 03/04/23 History hydrochlorothiazide 25 mg tablet 25 mg PO QAM PRN Edema 01/07/23 03/04/23 History hydroxyzine pamoate 100 mg capsule 100 mg PO HS 01/07/23 03/04/23 History sertraline 100 mg tablet (Zoloft) 100 mg PO HS 01/07/23 03/04/23 History tramadol 50 mg tablet 50 mg PO Q6H PRN Pain 01/07/23 03/04/23 History pantoprazole 40 mg tablet,delayed 40 mg PO QPM 01/21/23 03/04/23 History release lisinopril 10 mg tablet 10 mg PO HS 01/31/23 03/04/23 History famotidine 20 mg tablet 20 mg PO HS 03/04/23 03/04/23 History Allergies Allergy/AdvReac Type Severity Reaction Status Date / Time No Known Allergies Allergy Verified 03/04/23 22:17 Past Med/Surg History Medical History Abnormal LFTs Acute dehydration Alcohol use disorder Anemia Cholelithiasis Chronic diarrhea Depression Hypoglycemia Syncope Vitamin D deficiency Surgical History H/O: hysterectomy History of section History of cholecystectomy History of colonoscopy History of esophagogastroduodenoscopy (EGD) History of open reduction and internal fixation (ORIF) procedure right wrist--hardware in place History of total left hip replacement History of wisdom tooth extraction Family History Other No family history of adverse response to anesthesia Social History Smoking Status: Never smoker Second Hand Exposure: No; Do You Dip or Chew Tobacco: No; Hx Alcohol Use: Yes Alcohol type: hard liquor Hx Substance Use: No Preferred Language: [place] Communication Ability: Effective 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: No Beliefs That Will Affect Care: None Current Living Situation: Alone Feels Safe at Home: Yes Assistive Devices: Cane and Walker Review of Systems A total of 10 systems reviewed and were otherwise negative Cardiovascular: no chest pain Gastrointestinal: + nausea, + vomiting and + diarrhea/loose stools Physical Exam Vital Signs Vital Signs - 24 hr 03/04/23 20:12 03/04/23 20:26 03/04/23 20:26 Temperature 36.5 C Temperature Source Temporal Artery Scan Pulse Rate 85 Pulse Rate from SpO2 Sensor Respiratory Rate 16 Respiratory Effort / Characteristics Non-Labored Spontaneous Non-Labored Spontaneous Respiratory Depth Normal Normal Blood Pressure 64/37 L Blood Pressure Mean 46 Pulse Oximetry 98 92 Oxygen Delivery Method Room Air Room Air Sepsis Recent Fever Within 48 Hours No Sepsis New/Unexplained Change in Mental Status N/A Sepsis Action Taken by Nursing No Action Required 03/04/23 20:41 03/04/23 20:31 03/04/23 20:32 Temperature Temperature Source Pulse Rate 90 Pulse Rate from SpO2 Sensor 91 H Respiratory Rate 19 Respiratory Effort / Characteristics Non-Labored Respiratory Depth Normal Blood Pressure 88/53 L Blood Pressure Mean 66 Pulse Oximetry 94 Oxygen Delivery Method Sepsis Recent Fever Within 48 Hours Sepsis New/Unexplained Change in Mental Status Sepsis Action Taken by Nursing 03/04/23 20:32 03/04/23 20:40 03/04/23 20:45 Temperature Temperature Source Pulse Rate 88 94 H Pulse Rate from SpO2 Sensor 88 94 H Respiratory Rate 13 23 Respiratory Effort / Characteristics Respiratory Depth Blood Pressure 90/53 L Blood Pressure Mean 63 Pulse Oximetry 96 99 Oxygen Delivery Method Sepsis Recent Fever Within 48 Hours Sepsis New/Unexplained Change in Mental Status Sepsis Action Taken by Nursing 03/04/23 20:45 03/04/23 20:50 03/04/23 21:00 Temperature Temperature Source Pulse Rate 90 Pulse Rate from SpO2 Sensor 88 Respiratory Rate 21 15 Respiratory Effort / Characteristics Respiratory Depth Blood Pressure 105/72 Blood Pressure Mean 84 Pulse Oximetry 90 83 L Oxygen Delivery Method Sepsis Recent Fever Within 48 Hours Sepsis New/Unexplained Change in Mental Status Sepsis Action Taken by Nursing 03/04/23 21:00 03/04/23 21:11 03/04/23 20:26 Temperature Temperature Source Pulse Rate 92 H Pulse Rate from SpO2 Sensor 92 H Respiratory Rate 18 Respiratory Effort / Characteristics Non-Labored Non-Labored Respiratory Depth Normal Normal Blood Pressure Blood Pressure Mean Pulse Oximetry 96 Oxygen Delivery Method Sepsis Recent Fever Within 48 Hours Sepsis New/Unexplained Change in Mental Status Sepsis Action Taken by Nursing 03/04/23 21:10 03/04/23 20:26 03/04/23 22:28 Temperature Temperature Source Pulse Rate 92 H 85 Pulse Rate from SpO2 Sensor Respiratory Rate 16 Respiratory Effort / Characteristics Non-Labored Respiratory Depth Normal Blood Pressure Blood Pressure Mean Pulse Oximetry Oxygen Delivery Method Sepsis Recent Fever Within 48 Hours Sepsis New/Unexplained Change in Mental Status Sepsis Action Taken by Nursing 03/04/23 22:30 03/04/23 21:15 03/04/23 21:15 Temperature Temperature Source Pulse Rate 88 Pulse Rate from SpO2 Sensor 88 Respiratory Rate 16 Respiratory Effort / Characteristics Non-Labored Respiratory Depth Normal Blood Pressure 87/57 L Blood Pressure Mean 66 Pulse Oximetry 94 Oxygen Delivery Method Sepsis Recent Fever Within 48 Hours Sepsis New/Unexplained Change in Mental Status Sepsis Action Taken by Nursing 03/04/23 21:20 03/04/23 21:30 03/04/23 21:30 Temperature Temperature Source Pulse Rate 91 H 89 Pulse Rate from SpO2 Sensor 92 H 90 Respiratory Rate 11 L 21 Respiratory Effort / Characteristics Respiratory Depth Blood Pressure 93/58 L Blood Pressure Mean 62 Pulse Oximetry 95 81 L Oxygen Delivery Method Sepsis Recent Fever Within 48 Hours Sepsis New/Unexplained Change in Mental Status Sepsis Action Taken by Nursing 03/04/23 21:40 03/04/23 21:45 03/04/23 21:45 Temperature Temperature Source Pulse Rate 95 H 88 Pulse Rate from SpO2 Sensor 89 Respiratory Rate 20 18 Respiratory Effort / Characteristics Respiratory Depth Blood Pressure 95/58 L Blood Pressure Mean 66 Pulse Oximetry 97 Oxygen Delivery Method Sepsis Recent Fever Within 48 Hours Sepsis New/Unexplained Change in Mental Status Sepsis Action Taken by Nursing 03/04/23 21:50 03/04/23 22:00 03/04/23 22:00 Temperature Temperature Source Pulse Rate 89 86 Pulse Rate from SpO2 Sensor 89 86 Respiratory Rate 4 L 12 Respiratory Effort / Characteristics Respiratory Depth Blood Pressure 87/48 L Blood Pressure Mean 52 Pulse Oximetry 92 95 Oxygen Delivery Method Sepsis Recent Fever Within 48 Hours Sepsis New/Unexplained Change in Mental Status Sepsis Action Taken by Nursing 03/04/23 22:10 03/04/23 22:16 03/04/23 22:16 Temperature Temperature Source Pulse Rate 86 91 H Pulse Rate from SpO2 Sensor 86 88 Respiratory Rate 9 L 15 Respiratory Effort / Characteristics Respiratory Depth Blood Pressure 74/55 L Blood Pressure Mean 57 Pulse Oximetry 94 93 Oxygen Delivery Method Sepsis Recent Fever Within 48 Hours Sepsis New/Unexplained Change in Mental Status Sepsis Action Taken by Nursing 03/04/23 22:20 Temperature Temperature Source Pulse Rate 99 H Pulse Rate from SpO2 Sensor 89 Respiratory Rate 16 Respiratory Effort / Characteristics Respiratory Depth Blood Pressure Blood Pressure Mean Pulse Oximetry 94 Oxygen Delivery Method Sepsis Recent Fever Within 48 Hours Sepsis New/Unexplained Change in Mental Status Sepsis Action Taken by Nursing GENERAL: Patient is awake alert in no acute distress patient is resting comfortably and showing no signs of anxiety EYES: The conjunctivae are clear. The pupils are round and reactive. EARS, NOSE, MOUTH AND THROAT: The nose is without any evidence of any deformity. Mucous membranes are moist. Tongue is midline. NECK: The neck is nontender and supple. RESPIRATORY: Normal respiratory effort is noted there is no evidence of wheezing rhonchi or rales CARDIOVASCULAR: Regular rate and rhythm noted there no murmurs rubs or gallops normal S1 normal S2. GASTROINTESTINAL: The abdomen is soft. Abdomen is nontender. BACK: No midline tenderness or or step-off noted range of motion in flexion extension as well as rotation no signs of muscle spasm noted MUSCULOSKELETAL/EXTREMITIES: There is no evidence of gross deformity full range of motion is noted in the hips and shoulders. SKIN: There is no obvious evidence of any rash. There are no petechiae, pallor or cyanosis noted. NEUROLOGIC: Patient is awake alert and oriented x3 strength is symmetric Course Reevaluation(s) Reevaluation #1: Patient started on IV fluids, patient's blood pressure is greater than 100 after IV bolus, patient was also started on IV Zosyn. Patient clinically is in no distress despite her initial hypotensive episode Time: 22:37 Consultations Consultation #1: This case was discussed with the [facility] hospitalist for admission Time: 22:00 Administered Medications Discontinued Medications Sodium Chloride (Nss 1000ml) 1,000 mls @ 999 mls/hr IV .[id number] BARBARA Stop: 03/04/23 22:30 Last Infusion: 03/04/23 22:26 Dose: 0 mls/hr Documented By: Admin: 03/04/23 21:21 Dose: 999 mls/hr Documented By: Infusion: 03/04/23 21:21 Dose: 999 mls/hr Documented By: Admin: 03/04/23 20:51 Dose: 999 mls/hr Documented By: CLEMENTINA Piperacillin Sod/Tazobactam Sod (Zosyn) 4.5 gm in 120 mls @ 240 mls/hr IV NOW ONE Stop: 03/04/23 21:49 Last Infusion: 03/04/23 22:26 Dose: 0 mls/hr Documented By: Admin: 03/04/23 21:30 Dose: 240 mls/hr Documented By: CLEMENTINA(2) Acetaminophen (Ofirmev) 1,000 mg in 100 mls @ 400 mls/hr IV NOW STA Stop: 03/04/23 21:53 Last Admin: 03/04/23 22:25 Dose: 400 mls/hr Documented By: CLEMENTINA Critical Care Time Critical Care Time: Yes Total Critical Care Time: 35 I have personally spent greater than 35 minutes of critical care time in the direct management of this patient. This includes bedside care, interpretation of diagnostic studies, and testing, discussion with consultants, patient, and family members, and other required patient management activities. These minutes are in excess of all separately billable procedures. Medical Decision Making Medical Records Attestation: I reviewed the patient's medical records. Home Medications Current Medication List: was personally reviewed by me Laboratory Data Attestation: I reviewed the patient's lab results. Labs interpreted by me the patient has an elevated lactate and an elevated creatinine 03/04/23 20:33 03/04/23 20:33 Lab Results 03/04/23 03/04/23 03/04/23 Range/Units 20:33 20:33 20:33 WBC 7.87 (4.8-10.8) K/ul RBC 3.38 L (4.20-5.40) M/uL Hgb 9.6 L (12.0-16.0) g/dl Hct 28.8 L (37.0-47.0) % MCV 85.2 (80.0-100.0) fL MCH 28.4 (25.0-34.0) pg MCHC 33.3 (32.0-36.0) g/dL RDW Std Deviation 69.6 H (36.4-46.3) fL RDW Coeff of Cate 22.3 H (11.5-14.5) % Plt Count 200 (130-400) K/uL MPV 9.9 (9.4-12.4) fL Immature Gran % (Auto) 0.4 % Neut % (Auto) 68.0 % Lymph % (Auto) 17.8 % Parmer % (Auto) 12.7 % Eos % (Auto) 0.8 % Baso % (Auto) 0.3 % Neut # (Auto) 5.36 (1.40-6.50) K/uL Lymph # (Auto) 1.40 (1.20-3.40) K/uL Parmer # (Auto) 1.00 H (0.11-0.59) K/uL Eos # (Auto) 0.06 (0.00-0.50) K/uL Baso # (Auto) 0.02 (0.00-0.20) K/uL Immature Gran # (Auto) 0.03 (0.01-0.20) K/uL Anisocytosis Present Tear Drop Cells 1+ PT 10.2 (9.0-12.0) Seconds INR 0.9 (0.9-1.1) APTT 28.8 (21.0-31.0) Seconds PTT Ratio 1.0 Sodium (136-145) mmol/L Potassium (3.5-5.1) mmol/L Chloride (98-107) mmol/L Carbon Dioxide (21-32) mmol/L Anion Gap (3-11) BUN (6-23) mg/dl Creatinine (0.6-1.2) mg/dl Est Cr Clr Drug Dosing ml/min Est GFR ( Amer) ml/min Est GFR (Non-Af Amer) ml/min BUN/Creatinine Ratio (10-20) Glucose (70-99(Fasting)) mg/dl Lactate (0.4-2.0) mmol/L Calcium (8.6-10.3) mg/dl Magnesium (1.7-2.4) mg/dl Total Bilirubin (0.2-1.0) mg/dl Direct Bilirubin (0-0.2) mg/dl AST (13-39) U/L ALT (7-52) U/L Alkaline Phosphatase (34-104) U/L Troponin I High Sens (0-14) pg/ml Total Protein (6.0-8.3) gm/dl Albumin (3.4-5.0) gm/dl Procalcitonin (0-0.5) ng/ml Ethyl Alcohol mg/dL < 10.0 (<10.0) mg/dl SARS-CoV-2, RNA, NAAT (NEGATIVE) 03/04/23 03/04/23 03/04/23 Range/Units 20:33 20:33 20:33 WBC (4.8-10.8) K/ul RBC (4.20-5.40) M/uL Hgb (12.0-16.0) g/dl Hct (37.0-47.0) % MCV (80.0-100.0) fL MCH (25.0-34.0) pg MCHC (32.0-36.0) g/dL RDW Std Deviation (36.4-46.3) fL RDW Coeff of Cate (11.5-14.5) % Plt Count (130-400) K/uL MPV (9.4-12.4) fL Immature Gran % (Auto) % Neut % (Auto) % Lymph % (Auto) % Parmer % (Auto) % Eos % (Auto) % Baso % (Auto) % Neut # (Auto) (1.40-6.50) K/uL Lymph # (Auto) (1.20-3.40) K/uL Parmer # (Auto) (0.11-0.59) K/uL Eos # (Auto) (0.00-0.50) K/uL Baso # (Auto) (0.00-0.20) K/uL Immature Gran # (Auto) (0.01-0.20) K/uL Anisocytosis Tear Drop Cells PT (9.0-12.0) Seconds INR (0.9-1.1) APTT (21.0-31.0) Seconds PTT Ratio Sodium 126 L (136-145) mmol/L Potassium 3.9 (3.5-5.1) mmol/L Chloride 87 L (98-107) mmol/L Carbon Dioxide 26 (21-32) mmol/L Anion Gap 13 H (3-11) BUN 37 H (6-23) mg/dl Creatinine 1.62 H (0.6-1.2) mg/dl Est Cr Clr Drug Dosing 27.9 ml/min Est GFR ( Amer) 37.7 ml/min Est GFR (Non-Af Amer) 32.5 ml/min BUN/Creatinine Ratio 22.8 H (10-20) Glucose 93 (70-99(Fasting)) mg/dl Lactate 2.8 H* (0.4-2.0) mmol/L Calcium 9.6 (8.6-10.3) mg/dl Magnesium 1.6 L (1.7-2.4) mg/dl Total Bilirubin 0.7 (0.2-1.0) mg/dl Direct Bilirubin 0.2 (0-0.2) mg/dl AST 25 (13-39) U/L ALT 14 (7-52) U/L Alkaline Phosphatase 103 (34-104) U/L Troponin I High Sens 7.4 (0-14) pg/ml Total Protein 6.5 (6.0-8.3) gm/dl Albumin 4.4 (3.4-5.0) gm/dl Procalcitonin 1.47 H (0-0.5) ng/ml Ethyl Alcohol mg/dL (<10.0) mg/dl SARS-CoV-2, RNA, NAAT (NEGATIVE) 03/04/23 Range/Units Unknown WBC (4.8-10.8) K/ul RBC (4.20-5.40) M/uL Hgb (12.0-16.0) g/dl Hct (37.0-47.0) % MCV (80.0-100.0) fL MCH (25.0-34.0) pg MCHC (32.0-36.0) g/dL RDW Std Deviation (36.4-46.3) fL RDW Coeff of Cate (11.5-14.5) % Plt Count (130-400) K/uL MPV (9.4-12.4) fL Immature Gran % (Auto) % Neut % (Auto) % Lymph % (Auto) % Parmer % (Auto) % Eos % (Auto) % Baso % (Auto) % Neut # (Auto) (1.40-6.50) K/uL Lymph # (Auto) (1.20-3.40) K/uL Parmer # (Auto) (0.11-0.59) K/uL Eos # (Auto) (0.00-0.50) K/uL Baso # (Auto) (0.00-0.20) K/uL Immature Gran # (Auto) (0.01-0.20) K/uL Anisocytosis Tear Drop Cells PT (9.0-12.0) Seconds INR (0.9-1.1) APTT (21.0-31.0) Seconds PTT Ratio Sodium (136-145) mmol/L Potassium (3.5-5.1) mmol/L Chloride (98-107) mmol/L Carbon Dioxide (21-32) mmol/L Anion Gap (3-11) BUN (6-23) mg/dl Creatinine (0.6-1.2) mg/dl Est Cr Clr Drug Dosing ml/min Est GFR ( Amer) ml/min Est GFR (Non-Af Amer) ml/min BUN/Creatinine Ratio (10-20) Glucose (70-99(Fasting)) mg/dl Lactate (0.4-2.0) mmol/L Calcium (8.6-10.3) mg/dl Magnesium (1.7-2.4) mg/dl Total Bilirubin (0.2-1.0) mg/dl Direct Bilirubin (0-0.2) mg/dl AST (13-39) U/L ALT (7-52) U/L Alkaline Phosphatase (34-104) U/L Troponin I High Sens (0-14) pg/ml Total Protein (6.0-8.3) gm/dl Albumin (3.4-5.0) gm/dl Procalcitonin (0-0.5) ng/ml Ethyl Alcohol mg/dL (<10.0) mg/dl SARS-CoV-2, RNA, NAAT NEGATIVE (NEGATIVE) Imaging Data Attestation: I personally reviewed and interpreted this imaging study as follows: My Impression: Chest x-ray interpreted by me negative for infiltrate normal mediastinum ECG Data Attestation: I personally reviewed and interpreted this ECG as follows: Additional Comments: EKG interpreted by me normal sinus rhythm rate of 89, LVH, left axis deviation, no obvious ST segment elevation or depression Telemetry was ordered by me interpreted as normal sinus rhythm rate of 89 MDM Narrative Medical decision making differential diagnosis includes sepsis, dehydration, electrolyte abnormality, alcohol intoxication, acute coronary syndrome, I do not suspect thoracic aortic dissection or pulmonary embolism in this patient. Plan is to check labs, EKG, give IV fluids Prior medical records were reviewed by me Patient was given IV Zosyn, patient was given 30 mL/kg of IV fluids, patient will be admitted for sepsis, hypotension Impression & Plan Sepsis, Diarrhea Discharge Plan Visit Data Chief Complaint: Back Injury/Pain Stated Complaint: BACK PAIN ED Provider: Pardeep Palafox Discharge Problem: Sepsis, Diarrhea Patient Disposition: Admitted As Inpatient Forms Stand Alone Forms: My [facility] Prescriptions Prescriptions: No Action pantoprazole 40 mg tablet,delayed release (DR/EC) 40 mg PO QPM lisinopril 10 mg Tablet 10 mg PO HS quetiapine 100 mg tablet 100 mg PO HS hydroxyzine pamoate 100 mg Capsule 100 mg PO HS sertraline [Zoloft] 100 mg Tablet 100 mg PO HS tramadol 50 mg tablet 50 mg PO Q6H PRN (Reason: Pain) hydrochlorothiazide 25 mg tablet 25 mg PO QAM PRN (Reason: Edema) famotidine 20 mg tablet 20 mg PO HS Referrals Referrals: Emily Diehl PA-C [Primary Care Provider] -
[2023-03-04] MEDS: SODIUM CHLORIDE 0.9% 1,000 ML IV SCH ×2 (20:51→21:21)
[2023-03-04 20:54] LABS: Basophils # (auto) 0.02 K/uL (0.00-0.20); Basophils % (auto) 0.3 %; Eosinophils # (auto) 0.06 K/uL (0.00-0.50); Eosinophils % (auto) 0.8 %; Hematocrit (blood only) 28.8 % (37.0-47.0); Hemoglobin 9.6 g/dl (12.0-16.0); Immature Granulocytes # (auto) 0.03 K/uL (0.01-0.20); Immature Granulocytes % (auto) 0.4 %; Lymphocytes % (auto) 17.8 %; Mean Corpuscular Hemoglobin 28.4 pg (25.0-34.0); Mean Corpuscular Hgb Conc 33.3 g/dL (32.0-36.0); Mean Corpuscular Volume 85.2 fL (80.0-100.0); Mean Platelet Volume 9.9 fL (9.4-12.4); Monocytes % (auto) 12.7 %; Neutrophils # (auto) 5.36 K/uL (1.40-6.50); Platelet Count 200 K/uL (130-400); RDW Coefficient of Variation 22.3 % (11.5-14.5); RDW Standard Deviation 69.6 fL (36.4-46.3); Red Blood Count 3.38 M/uL (4.20-5.40); White Blood Count 7.87 K/ul (4.8-10.8)
[2023-03-04 21:10] LABS: Albumin Level 4.4 gm/dl (3.4-5.0); Bilirubin Direct 0.2 mg/dl (0-0.2); Bilirubin,Total 0.7 mg/dl (0.2-1.0); Calcium 9.6 mg/dl (8.6-10.3); Magnesium 1.6 mg/dl (1.7-2.4); Potassium 3.9 mmol/L (3.5-5.1)
[2023-03-04 21:16] LABS: BUN Creatinine Ratio 22.8 (10-20); Creatinine Clr Calc Pharmacy 27.9 ml/min; Est GFR (African American) 37.7 ml/min; Est GFR (Non-African American) 32.5 ml/min; Total Protein 6.5 gm/dl (6.0-8.3)
[2023-03-04] MEDS ORDERED: PIPERACILLIN/TAZOBACTAM 4.5 GM/120 ML BAG IV ONE (21:20)
[2023-03-04 21:22] LABS: INR 0.9 (0.9-1.1); Partial Thromboplastin Time 28.8 Seconds (21.0-31.0); Prothrombin Time 10.2 Seconds (9.0-12.0); Troponin I High Sensitivity 7.4 pg/ml (0-14)
[2023-03-04] MEDS ORDERED: ACETAMINOPHEN 1,000 MG/100 ML VIAL IV STA (21:39)
[2023-03-04 22:23] LABS: Anisocytosis Present; Tear Drop Cells 1+
--- NOTE | 2023-03-04 22:23 | History & Physical Report ---
Date of Service March 04, 2023 Assessment & Plan (1) Chest pain: Plan: 67 year old female w/ PmHx alcoholism, chronic anemia, dysphagia, hypertension, hiatal hernia, gastric bypass, sacroiliitis admitted for hypotension and poor nutrition. Chest pain: -New onset chest pain over past week along with poor nutrition. -Patient hypotensive in the ED to 60's/40's. -EKG NSR without any acute ST changes. -Troponin 7.4, lactate 2.8 -> 1.8. -CXR without any acute processes. -EGD from 01/31 w/ esophageal ulcer w/o stigmata of recent bleeding, benign esophageal stenosis. -Chest pain seems less likely however will obtain echo given low pressures and central pain radiating. -Will monitor on PCU. Hypotension: -Patient hypotensive in the ED to 60's/40's. -Likely related to poor nutrition and intake. -Replenished 3L in the ED. -Hypotension persists in 70's systolic. Will give 2L bolus to patient. -Place on maintenance fluids at 125 after bolus. -Monitor on PCU given low pressures. Poor nutrition/hypomagnesemia/hyponatremia: -History of poor nutrition, alcohol intake. -Patient's alcohol level negative today. Magnesium 1.6, Na 126. -Likely related to poor nutrition. -replenish 2gm Mg on admission. -Hereditary Cancer Program Coordinator consulted. -Monitor with AM BMP and Magnesium. F/E/N/GI: Regular diet. DVT Prophylaxis: SCD Code status: Full code Dispo: PCU (2) Poor nutrition: (3) Hypomagnesemia: (4) Hyponatremia: History of Present Illness Chief Complaint: Diarrhea back pain Primary Care Provider: Emily Barrdavid Olsen is a 67 year old female w/ past medical history of alcohol abuse coming in for diarrhea and back pain. Patient states that she has never had very good control of her appetite and has to force feed herself food at times. This past week especially she had very little intake, saying she was only able to take wally n water and at times alcohol. She states that this past week she started to develop chest pain that would be a tight feeling and then wrap around into her back between the shoulder blades that comes and goes. She said she's also had accompanying weakness that has been worse over the past week. The weakness extends back to the past year and she moved up here from [place] due to feeling weak and wanting to be close to her daughter in case she needed extra help. She drinks one week at a time where she fills a glass up to a certain point with rum followed by filling the rest of it up with coke. She says she has not had issue in the past with withdrawal and will go one week with alcohol and then one week without alcohol. She denies any neuropathy at the feet, denies lightheadedness or dizziness, fevers, chills, cough, shortness of breath, headache, dysuria. In the room her blood pressure was low with a MAP below 65 and she stated that some days her blood pressure is high some days her blood pressure is low like that. She denies persistent diarrhea but says sometimes it's solid stool sometimes it's more watery. Her most pressing concerns at this time for coming in were the lack of nutrition and the chest pain. In the ED she was given 3L NSS and Zosyn x1. Hgb 9.6, Na 126, creatinine 1.62, magnesium 1.6, procal 1.47. CXR without active disease. Allergies Allergy/AdvReac Type Severity Reaction Status Date / Time No Known Allergies Allergy Verified 03/04/23 22:17 Home Medications Medication Instructions Recorded Confirmed Type quetiapine 100 mg tablet 100 mg PO HS 10/22/22 03/04/23 History hydrochlorothiazide 25 mg tablet 25 mg PO QAM PRN Edema 01/07/23 03/04/23 History hydroxyzine pamoate 100 mg capsule 100 mg PO HS 01/07/23 03/04/23 History sertraline 100 mg tablet (Zoloft) 100 mg PO HS 01/07/23 03/04/23 History tramadol 50 mg tablet 50 mg PO Q6H PRN Pain 01/07/23 03/04/23 History pantoprazole 40 mg tablet,delayed 40 mg PO QPM 01/21/23 03/04/23 History release lisinopril 10 mg tablet 10 mg PO HS 01/31/23 03/04/23 History famotidine 20 mg tablet 20 mg PO HS 03/04/23 03/04/23 History Past Med/Surg History Medical History Abnormal LFTs Acute dehydration Alcohol use disorder Anemia Cholelithiasis Chronic diarrhea Depression Hypoglycemia Syncope Vitamin D deficiency Surgical History H/O: hysterectomy History of section History of cholecystectomy History of colonoscopy History of esophagogastroduodenoscopy (EGD) History of open reduction and internal fixation (ORIF) procedure right wrist--hardware in place History of total left hip replacement History of wisdom tooth extraction Family History Other No family history of adverse response to anesthesia Social History Smoking Status: Never smoker Second Hand Exposure: No; Do You Dip or Chew Tobacco: No; Hx Alcohol Use: Yes Alcohol type: hard liquor Hx Substance Use: No Preferred Language: Chinese Communication Ability: Effective 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 Physical Exam Constitutional: WD/WN, vitals as above Eyes: PERRL, conjunctivae normal, anicteric sclerae Respiratory: normal respiratory effort, lungs clear to auscultation Cardiovascular: RRR, no murmur, no edema Gastrointestinal (Abdomen): normal bowel sounds, soft, nontender, no hepatosplenomegaly Skin: no rashes, warm and dry Psychiatric: A+Ox3, euthymic affect Results & Data Results & Data Vital Signs (Past 12 Hours) Vital Signs Temp Pulse Resp BP Pulse Ox O2 Del Method 03/04/23 20:26 85 03/04/23 21:10 92 H 16 03/04/23 21:00 92 H 18 96 03/04/23 21:00 105/72 03/04/23 20:50 15 83 L 03/04/23 20:45 90 21 90 03/04/23 20:45 90/53 L 03/04/23 20:40 94 H 23 99 03/04/23 20:32 88 13 96 03/04/23 20:32 88/53 L 03/04/23 20:31 90 19 94 03/04/23 20:26 92 Room Air 03/04/23 20:12 36.5 C 85 16 64/37 L 98 Room Air Supervising Physician Co-Signing Physician Notes Attending addendum: I have physically seen this patient, have supervised the medical residents activities, and agree with the H&P unless as otherwise noted. Assessment and Plan: Hypotension/chest pain- The patient will be admitted to telemetry for serial cardiac enzymes, serial EKG's, cardiac rhythm monitoring and a 2-D echocardiogram with Dopplers. Pressure in the ED 60s/40s, improved with initial 2 L of normal saline, to the low 100 systolic, then required additional 2 L to maintain pressures again. Hold HCTZ and lisinopril Repeat laboratories in a.m. Acute kidney injury/hyponatremia- Creatinine 1.62 on admission, with baseline 0.72 Sodium 126 Hold HCTZ and lisinopril Aggressive IV fluid rehydration as noted above Repeat laboratories in a.m. Hypomagnesemia- Magnesium 1.6 on admission Give 2 g IV, and recheck laboratories in a.m. Remaining orders and notations as noted Resident Activity Tracking Resident Involvement: Resident Care Provided Care Provided: Adult [facility]
--- NOTE | 2023-03-04 22:43 | XRay Report ---
SINGLE VIEW CHEST CLINICAL HISTORY: Sepsis. FINDINGS: An AP, portable, upright chest radiograph is compared to study dated 02/04/2023 and correlate d with chest CT dated 01/25/2023. A hiatal hernia is noted. The heart is enlarged noting atherosclerot ic calcification of the thoracic aorta. The pulmonary vasculature is noncongested. Chronic interstiti al thickening is similar to previous. There is bibasilar scarring/atelectasis. No airspace consolidat ion or large pleural effusion is identified. No pneumothorax is seen. The skeletal structures are ost eopenic. The bony thorax is grossly intact. Cholecystectomy clips are seen in the right upper quadran t. IMPRESSION: Cardiomegaly with no active disease in the chest. ACT 112: Negative or not required by law. Electronically signed by: Sanjiv Lemus M.D. 03/04/2023 10:41 PM
[2023-03-04] MEDS ORDERED: SODIUM CHLORIDE 0.9% 1,000 ML IV SCH (22:55)
[2023-03-04 23:26] LABS: Appearance Urine Clear (Clear); Bacteria Urine Automated Negative (Negative); Bilirubin Urine Negative (Negative); Blood Urine Negative (Negative); Cast Urine Automated 0 /lpf (0-5); Color Urine Yellow; Glucose Urine UA Negative (Negative); Ketones Urine Negative (Negative); Leukocyte Esterase Urine Trace (Negative); Nitrite Urine Negative (Negative); Protein Urine Negative (Negative); RBC Urine Automated 0-4 /hpf (0-4); Specific Gravity Urine 1.005 (1.000-1.030); Urobilinogen Urine Negative (Negative); pH Urine 5.5 (4.5-7.5)
[2023-03-05] MEDS ORDERED: SODIUM CHLORIDE 0.9% 2,000 ML IV ONE (00:36)
[2023-03-05] MEDS: MAGNESIUM SULFATE / D5W 1 GM/100 ML BAG IV SCH ×2 (04:00→05:13)
[2023-03-05] MEDS ORDERED: ACETAMINOPHEN 325 MG TAB PO PRN (04:03)
[2023-03-05] MEDS ORDERED: ONDANSETRON INJ 2 MG/ML 2 ML VIAL IV PRN (04:03)
[2023-03-05] MEDS ORDERED: LORazepam 2 MG/1 ML VIAL IV PRN (04:03)
[2023-03-05 04:53] LABS: Basophils # (auto) 0.01 K/uL (0.00-0.20); Basophils % (auto) 0.2 %; Eosinophils # (auto) 0.08 K/uL (0.00-0.50); Eosinophils % (auto) 1.4 %; Hemoglobin 7.5 g/dl (12.0-16.0); Immature Granulocytes # (auto) 0.02 K/uL (0.01-0.20); Immature Granulocytes % (auto) 0.3 %; Lymphocytes # (auto) 1.33 K/uL (1.20-3.40); Mean Corpuscular Hemoglobin 28.6 pg (25.0-34.0); Mean Corpuscular Hgb Conc 32.6 g/dL (32.0-36.0); Mean Corpuscular Volume 87.8 fL (80.0-100.0); Mean Platelet Volume 9.7 fL (9.4-12.4); Monocytes # (auto) 0.76 K/uL (0.11-0.59); Monocytes % (auto) 13.1 %; Neutrophils # (auto) 3.59 K/uL (1.40-6.50); Platelet Count 148 K/uL (130-400); RDW Coefficient of Variation 22.5 % (11.5-14.5); RDW Standard Deviation 72.5 fL (36.4-46.3); Red Blood Count 2.62 M/uL (4.20-5.40); White Blood Count 5.79 K/ul (4.8-10.8)
[2023-03-05 05:00] LABS: Calcium 7.2 mg/dl (8.6-10.3); Magnesium 1.5 mg/dl (1.7-2.4); Potassium 3.9 mmol/L (3.5-5.1)
[2023-03-05 05:12] LABS: Anisocytosis Present; Hypochromasia Present
[2023-03-05] MEDS: SODIUM CHLORIDE 0.9% 1,000 ML IV SCH ×3 (05:15→20:55)
[2023-03-05 05:20] LABS: BUN Creatinine Ratio 25.2 (10-20); Est GFR (African American) 52.6 ml/min; Est GFR (Non-African American) 45.4 ml/min
--- OUTSIDE RECORDS SUMMARY | 2023-03-05 07:14 | External Medical Summary | Continuity of Care Document ---
Author Name Unknown Organization [facility] [address] [facility] [address] [facility] [address] [place], [place] [id number] Care Team Providers Care Ladle Patcher Name Role Phone Emily Diehl Primary Care Physician [phone] Encounter [facility] [id number] Date(s): 01/16/23 - 01/16/23 [facility] [address] [facility] [address] [facility] [address] [facility], [facility] [address] [place], [place] [address] [phone] Encounter Diagnosis Weakness(Discharge Diagnosis) - 01/16/23 Gastritis(Discharge Diagnosis) - 01/16/23 Alcohol use disorder(Discharge Diagnosis) - 01/16/23 Discharge Disposition: Home or Self Care Attending Physician: DO Sandra Gretchen Elizabeth Allergies, Adverse Reactions, Alerts No Known Allergies Assessment and Plan Extracted from: Title:Office Visit Note Author:DO Beckford Pa ige M Date:01/16/23 1.Weakness Chronic condition exacerbated/progressive/side effects of treatment Goal:Resolution Data:external notes including: _[facility] Discharge summary Plan: Continue using walker, cane. Patient agreeable to outpatient PT, referral placed. 2.Gastritis Chronic condition, stable Goal:Resolution Data:external notes including: _[facility] Discharge summary Plan: Continue Protonix, patient has scheduled EGD at end of January. 3.Alcohol use disorder Chronic condition exacerbated/progressive/side effects of treatment Goal:Resolution Data:external notes including: _[facility] Discharge Summary Plan: Discussed that patient will need to stop Tramadol before starting IM Naltrexone. Will require UDS, tolerate PO Naltrexone 1 week prior, and prior- auth for medication. Plan for f/u in next few weeks to plan logistics for starting IM naltrexone. Encouraged family support and finding local AA meetings. Medications Fosamax 70 mg oral tablet Start: 01/16/23 9:15:00 EDT, 1 tab, PO, q7days Start Date: 01/16/23 Status: Ordered lisinopril 10 mg oral tablet Start: 11/12/22 15:01:00 EDT, 1 tab, PO, Daily Start Date: 11/12/22 Status: Ordered naltrexone 50 mg oral tablet Start: 11/12/22 15:03:00 EDT Start Date: 11/12/22 Status: Ordered ondansetron 4 mg oral tablet, disintegrating Start: 11/12/22 15:03:00 EDT Start Date: 11/12/22 Status: Ordered Protonix 40 mg oral delayed release tablet Start: 11/29/22 15:28:00 EDT, 1 tab, PO, Daily Start Date: 11/29/22 Status: Ordered QUEtiapine 100 mg oral tablet Start: 01/16/23 20:30:00 EDT, See Instructions, Disp# 30 tab, Take 1/2 tab each night, Pharmacy: [facility]/pharmacy #[id number] Start Date: 01/16/23 Status: Ordered traMADol 50 mg oral tablet Start: 11/12/22 15:03:00 EDT Start Date: 11/12/22 Status: Ordered Valtrex Start: 01/16/23 9:14:00 EDT, as needed for cold sores Start Date: 01/16/23 Status: Ordered Vistaril 100 mg oral capsule Start: 11/29/22 15:28:00 EDT, 1 cap, PO, ONCE Start Date: 11/29/22 Status: Ordered Mental Status 01/16/23 Barriers to Learning one year None evide nt Mandatory Health Literacy Documentation Yes Health Literacy Communication Barriers N ever Primary Language Hebrew Problem List Condition Confirmation Course Effective Dates Status Health St atus Informant Alcoholism Confirmed Active Chronic anemia Confirmed Active Dysphagia Confirmed Active Hiatal hernia Confirmed Active History of gastric bypass Confirmed Active HTN (hypertension) Confirmed Active Diagnosis Diagnosis Type Effective Dates Health Status Cl inical Service Informant Weakness Discharge Diagnosis 01/16/23 Non-Specified Gastritis Discharge Diagnosis 01/16/23 Non-Specified Alcohol use disorder Discharge Diagnosis 01/16/23 Non-Specified Procedures Procedure Date Related Diagnosis Body Site Status Chest x-ray 1 10/22/[address] of cervical spine 2 10/22/[address] of face 3 10/22/[address] of head 4 10/22/22 Completed EGD (esophagogastroduodenosc opy) and closure of duodenal fistula 5 12/25/[address] of abdomen and pelvis 6 03/29/[address] of abdomen and pelvis 7 12/06/19 Completed 1Impression: No acute process 2Impression: No acute fracture or traumatic subluxation 3Impression: No acute findings in the face 4Impression: Exam limited due to lack of control and sagittal reformatted images. Within this constraint: No acute intracranial pathology 5Pathology report currently Small ulcer at the gastrojejunal anastomosis. Antral stomach biopsy gastric oxyntic mucosa with focal active inflammation, see note. Note: Immunohistochemical stain for H. pylori organisms have been ordered and the results of will be reported in an addendum 6CT abdomen pelvis with IV contrast Mild atelectasis in the lung bases. Mild cardiomegaly. Coronary arterial calcifications and/or stents. Severe diffuse fatty infiltration of the liver. Surgically absent gallbladder. No dilatation of thebiliary tree. Spleen appears unremarkable. Inflammation changes Around the pancreatic head, neck, and uncinate process. No pancreatic pseudocyst identified. Mild pancreatic atrophy. The adrenal glands appear unremarkable. Bilateral kidneys and ureters demonstrate no acute abnormality. Subcentimeter cortically based hypodensities at the superior pole on the left kidney is too small to characterize but favors an incidental cyst. The urinary bladder appears unremarkable. Surgically absent uterus. No acute abnormality of the reproductive structures. Thickening of the distal esophagus. Moderate size esophageal hiatal hernia. Postsurgical changes from gastric bypass. The gastrojejunal anastomosis is partially herniated into the chest. Thickening of the duodenum. No bowel obstruction. The appendix is not separately visualized. No pericecal inflamm atory changes to suggest acute appendicitis. The majority of the colon is decompressed, which limits evaluation of the colonic wall. There is colonic diverticulosis without a diverticulitis. Trace intraperitoneal free fluid without free air or free focal fluid collection. No enlarged lymph nodes. No acute abnormality of the vascular structures. Mild body wall edema. No suspicious bony lesion identified. Left hip arthroplasty hardware and left pelvic plate and screw fixation hardware. Impression: 1. Pancreatic inflammatory changes suspicious of acute pancreatitis. No evidence for pseudocyst. Recommend correlation with serum lipase. 2 severe fatty infiltration of the liver. 3 thickening of the duodenum is likely related to suspected pancreatitis. Alternatively, this may reflect duodenitis. 4 moderate size esophageal hiatal hernia. Gastric bypass within the gastrojejunal anastomosis partially herniated into the chest. 5 colonic diverticulosis without acute diverticulitis CT abdomen pelvis with IV contrast: Chest: No pericardial or pleural effusions. Moderate sized hiatal hernia. Suture material in the stomach. Correlate with patient's history. Mild wall thickening of the visualized distal esophagus. Differential diagnosis includes infectious or inflammatory esophagitis. Biliary: No evidence of intra or extrahepatic biliary ductal dilatation. Portal venous system. Patent Gallbladder: Cholecystectomy clips. Pancreas: Mild to mod pancreatic atrophy. Spleen: Not enlarged. Adrenal glands: No nodules. Kidneys: Enhance symmetrically. No evidence of hydronephrosis, masses or renal calculi. GI tract: No bowel obstruction, free intraperitoneal air or fluid. Mild diffuse wall thickening of the small bowel with surrounding hyperemia and associated mucosal hyperenhancement. Findings suggestive of infectious versus inflammatory enteritis. Mild diverticulosis. Appendix is not clearly visualized. No pericecal inflammatory changes. There is a round fat density within the third portion of the duodenum measuring 1.4 x 1.1 cm. Findings could represent undigested fat or duodenal lipoma. Lymph nodes: No significantly lymphadenopathy by CT size criteria. Abdominal aorta and its branches: Normal caliber. Atherosclerotic disease. Urinary bladder: Partially distended. Uterus and bilateral adnexa: Uterus is surgically absent or atrophic. Bones: No acute osseous findings. Left hip arthroplasty, partially visualized. Impression: 1 mild infectious versus inflammatory enteritis. 2 mild esophagitis. 3 fatty infiltration of the liver Vital Signs Most recent to oldest [Reference Range]: 1 Height 160 cm (01/16/23 9:17 AM) Patient Weight 66.9 kg (01/16/23 9:17 AM) Body Mass Index 26.13 kg/m2 (01/16/23 9:17 AM) Temperature [36.5-37.9 DegC] 36.8 DegC (01/16/23 9:17 AM) Heart Rate 75 bpm (01/16/23 9:17 AM) Blood Pressure 132/84mmHg (01/16/23 9:17 AM) Cuff Pulse Pressure 48 mmHg (01/16/23 9:17 AM) BP Location # 1 Left Arm (01/16/23 9:17 AM) Social History Social History Type Response Smoking Status Never smoked cigaret arun Sex Female FCM Outpt Note * DO Beckford Paige M: PERFORM DO Sandra Gretchen Elizabeth: MODIFY Event Display: FCM Outpt Note Authored Date: [id number] Chief Complaint Patient is here for a hosp follow up for dehydration at [facility]. History of Present Illness Pretty is [id number] female with past medical history ofalcohol use disorder,syncope, chronic diarrhea, hiatal hernia, and GERD who presents today for hospital discharge follow up appointment. Weakness -Came to the hospital following fall from standing up from the toilet. -PT/OT in hospital evaluation recommended safe to return home, suggested outpatient PT. -Uses cane and walker at home -No falls since discharge home, recently moved to senior apartments which is much easier to navigate with assistive devices Gastritis -Had burning pain, hx of GERD, and alcohol use disorder leading to suggest gastritis. EGD evaluation at the end of this month. -Patient continues to take Protonix Alcohol Use Disorder -Patient not taking PO naltrexone (per patient, she has "not been motivated to take it")was recommended to switch back to injection in outpt. -Does take tramadol once or twice per week for arthritis pain, would need to discontinue this priorto starting IM naltrexone -Unsure of exact quantity she currently drinks, states she just "eye balls it" and has a "big" container of alcohol that lasts 2 weeks -Is interested in restarting IM naltrexone, would like to go to an AA meeting locally (hasn't been to one in the area since moving here) -Patient has previously been on IM naltrexone in the past, tolerated it without issue. Has never had seizures with withdrawal Physical Exam Vitals & Measurements T:36.8C HR:75(Monitored) BP:132/84 SpO2:96% HT:160cm WT:66.9kg WT:66.900kg(Dosing) BMI:26.13 PHQ2 Data(Data Documented on:01/16/2023 09:12) Emotional health assessment NEGATIVE General:Alert and oriented, No acute distress HEENT: Normocephalic, Nl gross hearing, moist oral mucosa Cardiovascular:Normal rate, Regular rhythm, No murmur, No gallop. Respiratory:Lungs are clear to auscultation, Respirations are non-labored, Breath sounds are equal Integumentary:Warm, Dry, [place]. Psych: Mood-affect congruence. Speech is of normal pace and content Assessment/Plan 1.Weakness Chronic condition exacerbated/progressive/side effects of treatment Goal:Resolution Data:external notes including: _[facility] Discharge summary Plan: Continue using walker, cane. Patient agreeable to outpatient PT, referral placed. 2.Gastritis Chronic condition, stable Goal:Resolution Data:external notes including: _[facility] Discharge summary Plan: Continue Protonix, patient has scheduled EGD at end of January. 3.Alcohol use disorder Chronic condition exacerbated/progressive/side effects of treatment Goal:Resolution Data:external notes including: _[facility] Discharge Summary Plan: Discussed that patient will need to stop Tramadol before starting IM Naltrexone. Will requireUDS, tolerate PO Naltrexone 1 week prior, and prior-auth for medication. Plan for f/u in next few weeks to plan logistics for starting IM naltrexone. Encouraged family support and finding local AA meetings. Attestation Patient seen and examined in concert with Dr. Beckford, agree with history and physical documentedabove. Discussed importance of addressing alcohol use disorder, patient with good response to IM naltrexone, discussed that this medication blocks opioid receptors and will make tramadol ineffective for pain management. Patient understanding. Recommend oral natrexone challenge prior to IM administration. Plan reviewed in detail and patient understanding. Problem List/Past Medical History Ongoing Alcoholism Chronic anemia Dysphagia Hiatal hernia History of gastric bypass HTN (hypertension) Procedure/Surgical History CT of head (10/22/2022)CT of face (10/22/2022)CT of cervical spine (10/22/2022)Chest x-ray (10/22/2022)EGD (esophagogastroduodenoscopy) and closure of duodenal fistula (12/25/2021)CT of abdomen and pelvis (03/29/2020)CT of abdomen and pelvis (12/06/2019) Medications alendronate(Fosamax 70 mg oral tablet), 70 mg= 1 tab, PO, q7days hydrOXYzine(Vistaril 100 mg oral capsule), 100 mg= 1 cap, PO, ONCE lisinopril(lisinopril 10 mg oral tablet), 10 mg= 1 tab, PO, Daily naltrexone(naltrexone 50 mg oral tablet) ondansetron(ondansetron 4 mg oral tablet, disintegrating) pantoprazole(Protonix 40 mg oral delayed release tablet), 40 mg= 1 tab, PO, Daily QUEtiapine(QUEtiapine 100 mg oral tablet), See Instructions traMADol(traMADol 50 mg oral tablet) valACYclovir(Valtrex) Allergies NKA Social History Smoking Status Never smoked cigarettes Recommendations Health Maintenance Pending(in the next year) Due Adult Influenza Vaccine due01/04/23and every 1year Adult COVID-19 Vaccination due01/16/23Unknown Frequency Adult Tdap/Td Vaccine due01/16/23nown Frequency Breast Cancer Screening due01/16/23nown Frequency Colorectal Cancer Screening due01/16/23nown Frequency Falls Plan of Care due01/16/23nown Frequency Hepatitis C Screening due01/16/23One-time only Lipid Screening due01/16/23Unknown Frequency Medicare Annual Wellness Visit due01/16/23and every 1year Osteoporosis Screening due01/16/23One-time only Pneumococcal Vaccine Older Adults due01/16/23One-time only Shingles Vaccine due01/16/23One-time only Due In Future Body Mass Index not due until01/16/24and every 1year Satisfied(in the past 1 year) Satisfied Body Mass Index on01/16/23.Satisfied by FABIENNE Tang Courtney Electronic Signature on File Electronically Reviewed/Signed by: Mey Beckford Author Signature Dt/Tm:01/16/2023 08:44 PM Resident Department of Family Medicine Electronically Reviewed/Signed by: Jia Osborne Signature Dt/Tm: 01/16/2023 09:42 PM Department of Family Medicine PMW Patient Care team information Care Team Personnel Name: HARSH Diehl Kimberly A Position: Physician Slitter Service And Setter - Family Med Member Role: Primary Care Provider Address: Address: [address] [place] [address]
--- OUTSIDE RECORDS SUMMARY | 2023-03-05 07:14 | External Medical Summary | Continuity of Care Document ---
Author Name Unknown Organization [address] Address [address] [place], [place] [id number] Care Team Providers Care Coverstitch Machine Operator Name Role Phone No, Referring Primary Care Physician Unavailab le Encounter [facility] [id number] Date(s): 11/29/22 - 11/29/[address] [address] [phone] Encounter Diagnosis Chronic anemia(Discharge Diagnosis) - 11/29/22 Dysphagia(Discharge Diagnosis) - 11/29/22 Hiatal hernia(Discharge Diagnosis) - 11/29/22 Discharge Disposition: Home or Self Care Attending Physician: HARSH Gonzalez Kelli Jo Referring Physician: HARSH Diehl Kimberly A Allergies, Adverse Reactions, Alerts No Known Allergies Medications lisinopril 10 mg oral tablet Start: 11/12/22 [...] Ordered QUEtiapine 100 mg oral tablet Start: 11/12/22 15:01:00 EDT, 0.5 tab, PO, Daily Start Date: 11/12/22 Status: Ordered traMADol 50 mg oral tablet Start: 11/12/22 15:03:00 EDT Start Date: 11/12/22 Status: Ordered Vistaril 100 mg oral capsule Start: 11/29/22 15:28:00 EDT, 1 cap, PO, ONCE Start Date: 11/29/22 Status: Ordered Mental Status 11/29/22 Barriers to Learning one year None evide nt Mandatory Health Literacy Documentation Yes Health Literacy Communication Barriers N ever Primary Language Khmer Problem List Condition Confirmation Course Effective Dates Status Health St atus Informant Alcoholism Confirmed Active Chronic anemia Confirmed Active Dysphagia Confirmed Active Hiatal hernia Confirmed Active History of gastric bypass Confirmed Active HTN (hypertension) Confirmed Active Diagnosis Diagnosis Type Effective Dates Health Status Cl inical Service Informant Chronic anemia Discharge Diagnosis 11/29/22 Dysphagia Discharge Diagnosis 11/29/22 Hiatal hernia Discharge Diagnosis 11/29/22 Procedures Procedure Date Related Diagnosis Body Site [...] Most recent to oldest [Reference Range]: 1 Patient Weight 68.1 kg (11/29/22 3:28 PM) Heart Rate 73 bpm (11/29/22 3:28 PM) Respiratory Rate 16 br/min (11/29/22 3:28 PM) Blood Pressure 132/90mmHg (11/29/22 3:28 PM) Social History Social History Type Response Smoking Status Never smoked cigaret arun Sex Female Patient Care team information Care Team Personnel Name: HASRH Diehl, Emily Horton Position: Physician Frame Cleaner - Family Med Member Role: Lifetime Relationship Address: Address: [facility] [address] [address] Name: No, Referring Position: Referring Member Role: Primary Care Provider Address: Address: No Referring/Pcp
--- OUTSIDE RECORDS SUMMARY | 2023-03-05 07:14 | External Medical Summary | Continuity of Care Document ---
Author Name Unknown Organization [facility] [address] [facility] [address] Address [address] [id number] Care Team Providers Care Billposter Name Role Phone Emily Diehl Primary Care Physician [phone] Encounter [facility] [id number] Date(s): 01/29/23 - 01/29/23 [facility] Practice Site 1850 [facility] 207 [place], [place] [address] [place] [phone] Encounter Diagnosis Other senior living (current) drug therapy(Final) - Unspecified osteoarthritis, unspecified site(Final) - Alcohol use disorder(Discharge Diagnosis) - 01/29/23 Arthritis(Discharge Diagnosis) - 01/29/23 Controlled substance agreement signed(Discharge Diagnosis) - 01/29/23 Discharge Disposition: Home or Self Care Attending Physician: MD Lee Joseph P Allergies, Adverse Reactions, Alerts No Known Allergies Assessment and Plan Extracted from: Title:Office Visit Note Author:DO Beckford Pa ige M Date:01/29/23 1.Alcohol use disorder Chronic condition exacerbated/progressive/side effects of treatment Goal:Resolution Data:N/A Plan: Spent an extended amount of time discussing with patient her current relationship with alcohol and her senior living goals. She states that she knows that she feels better sober but is not ready to quit alcohol and at this time has a goal of drinking a few times per week like "most people". Based on conversation, patient is likely still at pre-contemplative stage. Discussed with patient that taking Naltrexone on an inconsistent basis in addition to Tramadol is not providing benefit. Discussed options and patient in agreement to pursue alternative treatments to Tramadol but in the meantime we will hold further Naltrexone prescriptions while patient is requiring Tramadol. Encouraged patient to again consider finding a local AA meeting. Plan to follow up in 1 month. 2.Arthritis Chronic condition exacerbated/progressive/side effects of treatment Goal:Resolution Data:N/A Plan: Patient states that she does not feel that she can stop the Tramadol as her lower back/arthritic pain has not responded to OTC medications. Patient requests refills of Tramadol. Per PDMP patient filled 7 day supply of Tramadol in early November (prescribed by previous provider from [place]). Patient states she will sometimes take two Tramadol in 1 day for her arthritis pain. CSA completed, see below. Patient to begin PT in the coming weeks. Patient states that if we were able to control her back pain with other means, she would consider trying the IM Naltrexone. Will place referral to sports medicine for consideration of injection/other interventions. 3.Controlled substance agreement signed -Patient signed CSA today in office for Tramadol 50mg -Urine drug screen ordered, patient states she did take an "old" hydrocodone tablet she had the other day for her pain. Per PDMP she was previously prescribed this (filled in 2022). Medications Fosamax 70 mg oral tablet Start: [...] mg oral tablet Start: 01/16/23 20:30:00 EDT, 1 tab, PO, qhs, Disp# 30 tab, Pharmacy: [facility]/pharmacy #[id number] Start Date: 01/16/23 Status: Ordered traMADol 50 mg oral tablet Start: 11/12/22 15:03:00 EDT Start Date: 11/12/22 Status: Ordered Valtrex Start: 01/16/23 9:14:00 EDT, as needed for cold sores Start Date: 01/16/23 Status: Ordered Vistaril 100 mg oral capsule Start: 11/29/22 15:28:00 EDT, 1 cap, PO, ONCE Start Date: 11/29/22 Status: Ordered Mental Status 01/29/23 Barriers to Learning one year None evide nt Mandatory Health Literacy Documentation Yes Health Literacy Communication Barriers N ever Primary Language Uruguayan Problem List Condition Confirmation Course Effective Dates Status Health St atus Informant Alcoholism Confirmed Active Chronic anemia Confirmed Active Dysphagia Confirmed Active Hiatal hernia Confirmed Active History of gastric bypass Confirmed Active HTN (hypertension) Confirmed Active Sacroiliitis Confirmed Active Diagnosis Diagnosis Type Effective Dates Health Status Clinical Service Informant Controlled substance agreement signed Discharge Diagnosis 01/29/23 Non-Specified Arthritis Discharge Diagnosis 01/29/23 Non-Specified Alcohol use disorder Discharge Diagnosis 01/29/23 Non-Specified Procedures Procedure Date Related Diagnosis Body [...] esophagitis. 3 fatty infiltration of the liver Results Laboratory List Name Date Drugs of Abuse w Confirmation, Urine (DA U6,MED W/CONF URN) 01/29/23 Most recent to oldest [Reference Range]: 1 Amphetamines(u) NONE DETECTED *Unknown* (01/29/23 11:43 AM) Barbiturates(u) NONE DETECTED *Unknown* (01/29/23 11:43 AM) Benzodiazepines(u) NONE DETECTED *Unknown* (01/29/23 11:43 AM) Cocaine(u) NONE DETECTED *Unknown* (01/29/23 11:43 AM) Marijuana(u) NONE DETECTED *Unknown* (01/29/23 11:43 AM) Opiates(u) NONE DETECTED *Unknown* (01/29/23 11:43 AM) Vital Signs Most recent to oldest [Reference Range]: 1 Patient Weight 67.2 kg (01/29/23 10:23 AM) Temperature [36.5-37.9 DegC] 36.8 DegC (01/29/23 10:23 AM) Respiratory Rate 16 br/min (01/29/23 10:23 AM) Blood Pressure 118/82mmHg (01/29/23 10:23 AM) Cuff Pulse Pressure 36 mmHg (01/29/23 10:23 AM) BP Location # 1 Left Arm (01/29/23 10:23 AM) Social History Social History Type Response Smoking Status Never smoked cigaret arun Sex Female Primary care Note * MD Jesus, Pepito P: MODIFY DO Beckford Paige M: PERFORM Event Display: FCM Outpt Note Authored Date: [id number] Chief Complaint 2 week follow up on hospital admission, pt state she is feeling okay History of Present Illness Pretty Nielsen is a 67 year-old female who presents today for follow up regarding alcohol use. Was seen in ER last weekend for worsening gastritis symptoms, now taking Malox, Pepcid, Protonix while awaiting EGD this Friday01/31/23. Alcohol Use -At last appointment was interested in starting IM Naltrexone -Today states she doesn't want to pursue that currently as she continues to require Tramadol for her arthritis pain which would preclude IM Naltrexone. -Currently drinking "about 4 drinks" per day -Takes PO Naltrexone on occasion, sometimes will take it for several days in a row and not drink while other times won't take it for days -States that currently she is not ready to stop drinking, states that he ultimate goal would be "mar able to drink a few times per week" -Notes she is still considering trying a local AA meeting, but just got internet set up at her new apartment so hasn't had time to find a meeting yet Lower Back Pain -Has a history of a fractured pelvic and hip replacement -Required inpatient rehab for additional pelvic fracture last fall -Previously diagnosed with osteopenia, had DEXA scan completed this week with results pending -Has been prescribed Tramadol for this pain, requests refill of medication -Denies numbness, tingling, or radiation of pain -Has PT scheduled to start in the next few weeks Physical Exam Vitals & Measurements T:36.8C RR:16 BP:118/82 SpO2:97% WT:67.2kg WT:67.200kg(Dosing) PHQ2 Data(Data Documented on:01/29/2023 10:23) Emotional health assessment NEGATIVE General:Alert and oriented, No acute distress HEENT: Normocephalic, Nl gross hearing, moist oral mucosa Cardiovascular:Normal rate, Regular rhythm, No murmur, No gallop. Respiratory:Lungs are clear to auscultation, Respirations are non-labored, Breath sounds are equal Integumentary:Warm, Dry, [place]. Psych: Mood-affect congruence. Speech is of normal pace and content Assessment/Plan 1.Alcohol use disorder Chronic condition exacerbated/progressive/side effects of treatment Goal:Resolution Data:N/A Plan: Spent an extended amount of time discussing with patient her current relationship with alcohol and her senior living goals. She states that she knows that she feels better sober but is not ready toquit alcohol and at this time has a goal of drinking a few times per week like "most people". Basedon conversation, patient is likely still at pre-contemplative stage. Discussed with patient that taking Naltrexone on an inconsistent basis in addition to Tramadol is not providing benefit. Discussedoptions and patient in agreement to pursue alternative treatments to Tramadol but in the meantime we will hold further Naltrexone prescriptions while patient is requiring Tramadol. Encouraged patient to again consider finding a local AA meeting. Plan to follow up in 1 month. 2.Arthritis Chronic condition exacerbated/progressive/side effects of treatment Goal:Resolution Data:N/A Plan: Patient states that she does not feel that she can stop the Tramadol as her lower back/arthritic pain has not responded to OTC medications. Patient requests refills of Tramadol. Per PDMP patient filled 7 day supply of Tramadol in early November (prescribed by previous provider from [place]). Patient states she will sometimes take two Tramadol in 1 day for her arthritis pain. CSA completed, see below. Patient to begin PT in the coming weeks. Patient states that if we were able to control her back pain with other means, she would consider trying the IM Naltrexone. Will place referral to sportsmedicine for consideration of injection/other interventions. 3.Controlled substance agreement signed -Patient signed CSA today in office for Tramadol 50mg -Urine drug screen ordered, patient states she did take an "old" hydrocodone tablet she had the other day for her pain. Per PDMP she was previously prescribed this (filled in 2022). Attestation I saw patient and was present for the galo portions of the history and physical. I agree with theresident's note and plan as documented in the resident's note. Support of sobriety and discussed AA, avoid naltrexone with tramadol and she takes oxycodone. She does not want to stop drinking yet, but does acknowledge that she feels better with sobriety. [place] Problem List/Past Medical History Ongoing Alcoholism Chronic [...] PO, Daily QUEtiapine(QUEtiapine 100 mg oral tablet), 100 mg= 1 tab, PO, qhs traMADol(traMADol 50 mg oral tablet) valACYclovir(Valtrex) Allergies NKA Social History Smoking Status Never smoked cigarettes Recommendations Health Maintenance Pending(in the next year) Due Adult Influenza Vaccine due01/04/23and every 1year Adult COVID-19 Vaccination due01/29/23Unknown Frequency Adult Tdap/Td Vaccine due01/29/23Unknown Frequency Breast Cancer Screening due01/29/23Unknown Frequency Colorectal Cancer Screening due01/29/23Unknown Frequency Falls Plan of Care due01/29/23nown Frequency Hepatitis C Screening due01/29/23One-time only Lipid Screening due01/29/23Unknown Frequency Medicare Annual Wellness Visit due01/29/23and every 1year Osteoporosis Screening due01/29/23One-time only Pneumococcal Vaccine Older Adults due01/29/23One-time only Shingles Vaccine due01/29/23One-time only Due In Future Body Mass Index not due until01/29/24and every 1year Satisfied(in the past 1 year) Satisfied Body Mass Index on01/16/23.Satisfied by FABIENNE Tang Courtney Electronic Signature on File Electronically Reviewed/Signed by: Mey Beckford Author Signature Dt/Tm:01/29/2023 10:17 PM Resident Department of Family Medicine Electronically Reviewed/Signed by: Pepito Lee MD Cosigner Signature Dt/Tm: 01/30/2023 11:30AM Department of Family Medicine Electronically Reviewed/Signed by: Aniyah Ruelas DO Resident Department of Family Medicine PMW Patient Care team information Care Team Personnel Name: HARSH Diehl, Emily Horton Position: Physician Marine Plumber - Family Med Member Role: Primary Care Provider Address: Address: [facility] [address] [address]
--- OUTSIDE RECORDS SUMMARY | 2023-03-05 07:14 | External Medical Summary | Continuity of Care Document ---
Author Name Unknown Organization [place] [id number] Address [address] [place] [id number] Care Team Providers Care Securities Clerk Name Role Phone Emily Diehl Primary Care Physician [phone] [id number] Date(s): 01/31/23 - 01/31/23 [facility] 1850 [facility] 112[address] [facility] Medicine [address] [place], [place] [id number] Encounter Diagnosis Sacroiliitis(Discharge Diagnosis) - 01/31/23 Discharge Disposition: Home or Self Care Attending Physician: MD Chu Gregory G Referring Physician: MD Jesus, Pepito Ocampo Allergies, Adverse Reactions, Alerts No Known Allergies Assessment and Plan Extracted from: Title:Orthopaedics Office Visit Note Author:Matthieu jaramillo MD, Damian Silva Date:01/31/23 1.Sacroiliitis Patient is describing classic of right sacroiliitisshe wishes to pursue an injection to provide her with relief. She has had an ASA level2 status for an upcoming injection of the right SI joint. She will follow-up after the injection Medications Fosamax 70 mg oral tablet Start: [...] tab, PO, qhs, Disp# 30 tab, Pharmacy: [facility]/pharmacy #[id number] Start Date: 01/16/23 Status: Ordered traMADol 50 mg oral tablet Start: 11/12/22 15:03:00 EDT Start Date: 11/12/22 Status: Ordered Valtrex Start: 01/16/23 9:14:00 EDT, as needed for cold sores Start Date: 01/16/23 Status: Ordered Vistaril 100 mg oral capsule Start: 11/29/22 15:28:00 EDT, 1 cap, PO, ONCE Start Date: 11/29/22 Status: Ordered Mental Status 01/31/23 Barriers to Learning one year None evide nt Mandatory Health Literacy Documentation Yes Health Literacy Communication Barriers N ever Primary Language Turkmen Problem List Condition Confirmation Course Effective Dates Status Health St atus Informant Alcoholism Confirmed Active Chronic anemia Confirmed Active Dysphagia Confirmed Active Hiatal hernia Confirmed Active History of gastric bypass Confirmed Active HTN (hypertension) Confirmed Active Sacroiliitis Confirmed Active Diagnosis Diagnosis Type Effective Dates Health Status Cl inical Service Informant Sacroiliitis Discharge Diagnosis 01/31/23 Procedures Procedure Date Related Diagnosis Body Site [...] esophagitis. 3 fatty infiltration of the liver Social History Social History Type Response Smoking Status Never smoked cigaret arun Sex Female Primary care Note * MD Vlad, Damian Silva: PERFORM Event Display: Ortho Outpt Note Authored Date: [id number] Primary Care Provider HARSH Diehl, Emily Horton Referring Provider MD Jesus, Pepito Ocampo Chief Complaint chronic low back pain, interested in an injection... pain History of Present Illness Patient is a 67-year-old female who presents today with low back pain. She is localizing pain with a positive Carlos's test to her right SI joint. She reports that the pain does not typically travel it months sharp pain. It is exacerbated with prolonged sitting and moving to a standing positionand also with prolonged standing. She is unable to sleep on her right side in bed because of the painand denies any radiations of the pain. Pain is quantified currently as a 2 out of 107 out of 10 at the worst1 out of 10 at the least Review of Systems No additional pertinentpositive pertinent positives noted Physical Exam Pleasant female seated comfortably in no apparent distresslumbar paraspinal muscles were palpatednoted to be nontender she had a positive point tenderness over right SI joint positive Gaenslen's maneuver. Positive modified Tootie maneuver and sacral compression maneuvers. She had normal lowerextremity strength. She had intact sensation distally at the L4 L5-S1 dermatomes. Negative seated straight leg raises Diagnostic Results I reviewed an image of her pelvis on on her phone which showed atrauma to the left hip and some sclerotic changes of the right sacroiliac joint Assessment/Plan 1.Sacroiliitis Patient is describing classic of right sacroiliitisshe wishes to pursue an injection to provideher with relief. She has had an ASA level2 status for an upcoming injection of the right SI joint. She will follow-up after the injection Problem List/Past Medical History Ongoing Alcoholism Chronic anemia Dysphagia Hiatal hernia History of gastric bypass HTN (hypertension) Sacroiliitis Procedure/Surgical History CT of head (10/22/2022)CT of [...] Vaccine due01/04/23and every 1year Adult COVID-19 Vaccination due01/31/23Unknown Frequency Adult Tdap/Td Vaccine due01/31/23Unknown Frequency Breast Cancer Screening due01/31/23Unknown Frequency Colorectal Cancer Screening due01/31/23Unknown Frequency Falls Plan of Care due01/31/23Unknown Frequency Hepatitis C Screening due01/31/23One-time only Lipid Screening due01/31/23Unknown Frequency Medicare Annual Wellness Visit due01/31/23and every 1year Osteoporosis Screening due01/31/23One-time only Pneumococcal Vaccine Older Adults due01/31/23One-time only Shingles Vaccine due01/31/23One-time only Due In Future Body Mass Index not due until01/29/24and every 1year Satisfied(in the past 1 year) Satisfied Body Mass Index on01/16/23.Satisfied by FABIENNE Tang Courtney Electronic Signature on File CC: Pepito Lee MD [address] [address] Electronically Reviewed/Signed by: Damian Chu MD Author Signature Dt/Tm:01/31/2023 10:52 AM Gambling Cashier of [facility] Patient Care team information Care Team Personnel Name: HARSH Diehl, Emily Horton Position: Physician Power Plant Electrician - Family Med Member Role: Primary Care Provider Address: Address: [address] [address] [place]
--- OUTSIDE RECORDS SUMMARY | 2023-03-05 07:14 | External Medical Summary | Continuity of Care Document ---
Author Name Unknown Organization [facility] 1850 [facility] 207 Address [address] [phone] Care Team Providers Care Network Systems Operator Name Role Phone Emily Diehl Primary Care Physician [phone] Encounter [facility] [id number] Date(s): 01/29/23 - 01/29/23 [facility] 1850 [facility] 207 [facility] Practice Site 1850 [facility] 207 [place], [place] [address] [phone] Encounter Diagnosis Other long-term (current) drug therapy(Final) - Unspecified osteoarthritis, unspecified [...] her current relationship with alcohol and her long-term goals. She states that she knows that [...] early November (prescribed by previous provider from [place]). Patient states she will sometimes take two [...] tab, PO, qhs, Disp# 30 tab, Pharmacy: [facility]/pharmacy #[id number] Start Date: 01/16/23 Status: Ordered traMADol 50 [...] Literacy Communication Barriers N ever Primary Language Jordanian Problem List Condition Confirmation Course Effective Dates [...] Event Display: FCM Outpt Note Authored Date: [id number] Chief Complaint 2 week follow up on [...] non-labored, Breath sounds are equal Integumentary:Warm, Dry, [place]. Psych: Mood-affect congruence. Speech is of normal pace and content Assessment/Plan 1.Alcohol use disorder Chronic condition exacerbated/progressive/side effects of treatment Goal:Resolution Data:N/A Plan: Spent an extended amount of time discussing with patient her current relationship with alcohol and her long-term goals. She states that she knows that [...] early November (prescribed by previous provider from [place]). Patient states she will sometimes take two [...] Name: HARSH Diehl, Emily Horton Position: Physician High Lighter - Family Med Member Role: Primary Care Provider Address: Address: [facility] [address] [address]
--- OUTSIDE RECORDS SUMMARY | 2023-03-05 07:14 | External Medical Summary | Continuity of Care Document ---
Author Name Unknown Organization [facility] [address] [facility] [address] [place] [phone] Care Team Providers Care Telephoner Name Role Phone No, Referring Primary Care Physician Unavailab le Encounter [facility] [id number] Date(s): 11/12/22 - 11/12/22 [facility] 0 [facility] 207 [facility] Practice Site [address] [facility], [facility] 207 [place], [place] [address] [phone] Encounter Diagnosis Body mass index [BMI] 25.0-25.9, adult(Discharge Diagnosis) - 11/12/22 Alcoholism(Discharge Diagnosis) - 11/12/22 HTN (hypertension)(Discharge Diagnosis) - 11/12/22 History of gastric bypass(Discharge Diagnosis) - 11/12/22 Chronic anemia(Discharge Diagnosis) - 11/12/22 Hiatal hernia with obstruction but no gangrene(Discharge Diagnosis) - 11/12/22 Discharge Disposition: Home or Self Care Attending Physician: HARSH Diehl Kimberly A Allergies, Adverse Reactions, Alerts No Known Allergies Assessment and Plan Extracted from: Title:Hospital followup Author:HARSH Diehl Kim berly A Date:11/12/22 1.Alcoholism STATUS:Chronic, unstable Now abstinent since October 24 Has been inpatient rehab x 3 and continued to drink heavily Not interested in AA or counseling Has been a functional alcoholic for at least 30 years. Has had pancreatitis in the past requiring hospitalizations with her heaviest drinking DATA:Labs reviewed. GOAL:Maintain stability. PLAN:Cont current monitoring. .Encouraged AA,counseling and regular Naltrexone use, all of which were refused by patient 2.HTN (hypertension) STATUS:Chronic stable. Takes Lisinopril 10mg when she feels that she needs it. Does check blood pressures regularly No claudication, chest pain, SOB, palpitations, tachycardia, dizziness, lightheadedness cough, LE edema, headaches, blurred vision, loss of vision, confusion or epistaxis. DATA:Labs reviewed. GOAL:Maintain stability. PLAN:Cont current monitoring. .Continue to monitor blood pressures regularly. Please continue to take the Lisinopril daily 3.History of gastric bypass STATUS:Chronic, unstable. history of gastric bypass with EGD evidence of gastrojejunal anastomatic ulcers, gastritis and hiatal hernia. She does take Pantoprazole daily with improvement in her symptoms. Has not followed recommendations to take iron or B12 supplementation. DATA:Labs reviewed. GOAL:Maintain stability. PLAN:Cont current monitoring. Get labs to monitor anemia, Vit B12, magnesium Please restart supplementation as previously ordered. 4.Chronic anemia STATUS:Chronic stable. DATA:Labs reviewed. GOAL:Maintain stability. PLAN:Cont current monitoring. .Labs ordered Highly encourage you to take the supplementation as previously ordered. 5.Hiatal hernia with obstruction but no gangrene STATUS:Chronic stable. EGD in [place] 03/2020 revealed large gastojejunal anastomtic ulcers and grade D esophagitis. No evidence of esophageal varices Does have some sticking and choking with some dryer foods. Pantoprazole seems to have some positive benefit. DATA:Labs reviewed. GOAL:Maintain stability. PLAN:Cont current monitoring. . Referral to GI for further evaluation Continue Pantoprazole daily Smaller bites as discussed Time spent on pre-visit plannin min Face to face time spent w/patient: 30 min Time spent documenting pertinent clinical information into the EMR:8 min Total time: 46 min Medications lisinopril 10 mg oral tablet Start: 11/12/22 15:01:00 EDT, 1 tab, PO, Daily Start Date: 11/12/22 Status: Ordered naltrexone 50 mg oral tablet Start: 11/12/22 15:03:00 EDT Start Date: 11/12/22 Status: Ordered ondansetron 4 mg oral tablet, disintegrating Start: 11/12/22 15:03:00 EDT Start Date: 11/12/22 Status: Ordered QUEtiapine 100 mg oral tablet Start: 11/12/22 15:01:00 EDT, 0.5 tab, PO, Daily Start Date: 11/12/22 Status: Ordered traMADol 50 mg oral tablet Start: 11/12/22 15:03:00 EDT Start Date: 11/12/22 Status: Ordered Mental Status 11/12/22 Barriers to Learning one year None evide nt Mandatory Health Literacy Documentation Yes Health Literacy Communication Barriers N ever Primary Language Icelandic Problem List Condition Confirmation Course Effective Dates Status Health St atus Informant Alcoholism Confirmed Active Chronic anemia Confirmed Active Hiatal hernia with obstruction but no gangrene Confirmed Active History of gastric bypass Confirmed Active HTN (hypertension) Confirmed Active Diagnosis Diagnosis Type Effective Dates Health Status Clinical Service Informant Alcoholism Discharge Diagnosis 11/12/22 HTN (hypertension) Discharge Diagnosis 11/12/22 History of gastric bypass Discharge Diagnosis 11/12/22 Chronic anemia Discharge Diagnosis 11/12/22 Body mass index [BMI] 25.0-25.9, adult Discharge Diagnosis 11/12/22 Non-Specified Hiatal hernia with obstruction but no gangrene Discharge Diagnosis 11/12/22 Procedures Procedure Date Related Diagnosis Body Site Status Chest x-ray 1 10/22/[address] of cervical spine 2 10/22/[address] of face 3 10/22/[address] of head 4 10/22/22 Completed 1Impression: No acute process 2Impression: No acute fracture or traumatic subluxation 3Impression: No acute findings in the face 4Impression: Exam limited due to lack of control and sagittal reformatted images. Within this constraint: No acute intracranial pathology Vital Signs Most recent to oldest [Reference Range]: 1 Height 160 cm (11/12/22 3:04 PM) Patient Weight 65.6 kg (11/12/22 3:04 PM) Body Mass Index 25.62 kg/m2 (11/12/22 3:04 PM) Temperature [36.5-37.9 DegC] 36.9 DegC (11/12/22 3:04 PM) Blood Pressure 132/82mmHg (11/12/22 3:04 PM) BP Location # 1 Left Arm (11/12/22 3:04 PM) Social History Social History Type Response Smoking Status Never smoked cigaret arun Sex Female FCM Outpt Note * HARSH Diehl, Emily Horton: PERFORM Event Display: FCM Outpt Note Authored Date: Chief Complaint pt here to establish care and hospital f/u from 1 week ago for dehydration History of Present Illness Екатерина romero yearradha presents with PMH of HTN, heavy alcohol use. She is new to the area and practice. 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 She was hospitalized on 10/22/22 after several days of profuse, watery diarrhea (15+ episodes daily), near syncope, nausea and dizziness. She had apparently fallen at home over her walker but denied any LOC. She was significantly hypotensive at 60's/40's per EMS. History was relevant for heavy alcohol consumption of 8-10 rum drinks daily with prior withdrawal symptoms. ER course did find patient to be tachycardic and hypotensive. Lost peripheral IV access and subsequently had right femoral central venous catheter placed. Initial labs with lactic acid of 6.9, ETOH of 96.1 and serum bicarb of 8.0. Renal function was preserved Pressures and labs did return to baseline after she was rehydrated. No etiology of the diarrhea was identified as stool cultures were negative She was discharged to home with Naltrexone but has not used it. Her last alcoholic beverage was day of discharge She does endorse that she has been a functional alcoholic since her early adulthood. She was ableto quit drinking during pregnancies but otherwise would start drinking as soon as she got home. Other relevant PMH includes history of gastric bypass with EGD evidence of gastrojejunal anastomatic ulcers, gastritis and hiatal hernia. She does take Pantoprazole daily with improvement in her symptoms. Has not followed recommendations to take iron or B12 supplementation. Does have some sticking or choking. Review of Systems ROS per HPI Physical Exam Vitals & Measurements T:36.9C BP:132/82 SpO2:98% HT:160cm WT:65.6kg WT:65.600kg(Dosing) BMI:25.62 PHQ2 Data(Data Documented on:11/12/2022 15:03) Emotional health assessment NEGATIVE General:Alert and oriented, No acute distress. HEENT:Eyes WNL, Tympanic membranes are clear, No pharyngeal erythema, No sinus tenderness. Neck:Supple, Non-tender, No jugular venous distention, No lymphadenopathy, No thyromegaly. Respiratory:Lungs are clear to auscultation, Respirations are non-labored, Breath sounds are equal. Cardiovascular:Normal rate, Regular rhythm, No murmur, rubs or gallops. Gastrointestinal:Soft, Non-tender, Non-distended, Normal bowel sounds. Neurologic:Alert, Oriented, No focal deficits. Psychiatric:Cooperative, Appropriate mood & affect. Assessment/Plan 1.Alcoholism STATUS:Chronic, unstable Now abstinent since October 24 Has been inpatient rehab x 3 and continued to drink heavily Not interested in AA or counseling Has been a functional alcoholic for at least 30 years. Has had pancreatitis in the past requiring hospitalizations with her heaviest drinking DATA:Labs reviewed. GOAL:Maintain stability. PLAN:Cont current monitoring. .Encouraged AA,counseling and regular Naltrexone use, all of which were refused by patient 2.HTN (hypertension) STATUS:Chronic stable. Takes Lisinopril 10mg when she feels that she needs it. Does check blood pressures regularly No claudication, chest pain, SOB, palpitations, tachycardia, dizziness, lightheadedness cough, LE edema, headaches, blurred vision, loss of vision, confusion or epistaxis. DATA:Labs reviewed. GOAL:Maintain stability. PLAN:Cont current monitoring. .Continue to monitor blood pressures regularly. Please continue to take the Lisinopril daily 3.History of gastric bypass STATUS:Chronic, unstable. history of gastric bypass with EGD evidence of gastrojejunal anastomatic ulcers, gastritis and hiatal hernia. She does take Pantoprazole daily with improvement in her symptoms. Has not followed recommendations to take iron or B12 supplementation. DATA:Labs reviewed. GOAL:Maintain stability. PLAN:Cont current monitoring. Get labs to monitor anemia, Vit B12, magnesium Please restart supplementation as previously ordered. 4.Chronic anemia STATUS:Chronic stable. DATA:Labs reviewed. GOAL:Maintain stability. PLAN:Cont current monitoring. .Labs ordered Highly encourage you to take the supplementation as previously ordered. 5.Hiatal hernia with obstruction but no gangrene STATUS:Chronic stable. EGD in [place] 03/2020 revealed large gastojejunal anastomtic ulcers and grade D esophagitis. No evidence of esophageal varices Does have some sticking and choking with some dryer foods. Pantoprazole seems to have some positive benefit. DATA:Labs reviewed. GOAL:Maintain stability. PLAN:Cont current monitoring. .Referral to GI for further evaluation Continue Pantoprazole daily Smaller bites as discussed Time spent on pre-visit plannin min Face to face time spent w/patient: 30 min Time spent documenting pertinent clinical information into the EMR:8 min Total time: 46 min Procedure/Surgical History CT of head (10/22/2022)CT of face (10/22/2022)CT of cervical spine (10/22/2022)Chest x-ray (10/22/2022) Medications lisinopril(lisinopril 10 mg oral tablet), 10 mg= 1 tab, PO, Daily naltrexone(naltrexone 50 mg oral tablet) ondansetron(ondansetron 4 mg oral tablet, disintegrating) QUEtiapine(QUEtiapine 100 mg oral tablet), 50 mg= 0.5 tab, PO, Daily traMADol(traMADol 50 mg oral tablet) Allergies NKA Social History Smoking Status Never smoked cigarettes Recommendations Health Maintenance Pending(in the next year) OverDue Adult Influenza Vaccine due01/04/22and every 1year Due Medicare Annual Wellness Visit due11/12/22and every 1year Satisfied(in the past 1 year) There are no satisfied recommendations within the defined date range Electronic Signature on File Electronically Reviewed/Signed by: Emily Diehl PA-C Author Signature Dt/Tm:11/12/2022 11:12 PM Department of Family Medicine Electronically Reviewed/Signed by: MD Keshawn Rao Signature Dt/Tm: 11/13/2022 10:06 AM Department of Family Medicine [facility] Patient Care team information Care Team Personnel Name: No, Referring Position: Referring Member Role: Primary Care Provider Address: Address: No Referring/Pcp
--- NOTE | 2023-03-05 07:26 | Hospitalist Progress Note ---
Date of Service March 05, 2023 Assessment & Plan (1) Chest pain: Plan: 67 year old female w/ PmHx alcoholism, chronic anemia, dysphagia, hypertension, hiatal hernia, gastric bypass, sacroiliitis admitted for hypotension and poor nutrition. Chest pain: -New onset chest pain over past week along with poor nutrition. -EKG NSR without any acute ST changes. -Troponin 7.4, lactate 2.8 -> 1.8. -CXR without any acute processes. -EGD from 01/31 w/ esophageal ulcer w/o stigmata of recent bleeding, benign esophageal stenosis. -TTE pending - Does state that she has some exertional chest pain, would consider further work-up with stress test in the future - Most likely cause secondary to PUD, likely worsened by her chronic alcohol use - CTA without signs of acute bleeding or aortic dissection, showed dilation of esophagus, concern for stricture - Consult GI, NPO pending GI evaluation Normocytic Anemia - hemoglobin 9.6 on admission, 7.5 this morning, repeat this afternoon 7.9 - B12 and folate wnl - concern for GI bleed given history of PUD/GERD - continue to trend CBC GERD - continue famotidine, pantoprazole, Carafate - can add maalox Hypotension: -Patient hypotensive in the ED to 60's/40's. -Likely secondary to hypovolemia in the setting of poor PO intake and GI bleeding -Replenished 5L since admission with improvement in blood pressures -Currently on maintenance fluids at 125 Alcohol Abuse - AWSS protocol - continue folate, B12 supplementation Poor nutrition/hypomagnesemia/hyponatremia: -History of poor nutrition, alcohol intake. -Patient's alcohol level negative today. - Magnesium repleted - Na 126 on admission up to 131-> continue to trend -Likely related to poor nutrition. -Import Export Clerk consulted. HTN - hold HCTZ, lisinopril given hypotension Insomnia - continue Seroquel qHS Depression - continue sertraline - consult behavioral liaison per pt request F/E/N/GI: Regular diet. DVT Prophylaxis: SCD Code status: Full code (2) Poor nutrition: (3) Hypomagnesemia: (4) Hyponatremia: Admission and Anticipated Discharge Date Admission Date: March 04, 2023 Supervising Physician Co-Signing Physician Notes I personally examined the patient and verified all galo points of history and exam, discussed case, and agree with decision making with Dr Chen Feeling ongoing chest painfeels like she has esophageal spasms. Food has been sticking a good bit recently, feels like she cannot even really swallow secretions well. Poor p.o. intake. Vitals noted, in general she is awake and alert pleasant appears somewhat stressed, although fortunately no physical distress. HEENT normocephalic atraumatic mucous membranes moist. Breathing unlabored no accessory muscle use good effort. Skin shows no rashes no pallor or icterus. Hypotensionfortunately appears to be hypovolemic rather than other etiologies, and in the hypovolemic, while she has some anemia, I suspect it is more just low volume. Remedied with IV fluids. Follow anemia, treat upper GI sources for potential GI bleeding, although given no melena no hematochezia, it is less likely she has active GI bleeding and the anemia is more likely poor hematopoiesis from poor nutrition. Check/supplement "building blocks", continue supportive care. GI eval for possible EGD and dilation especially given her CT findings. otherwise as above Subjective Pt seen at bedside this morning. States that she did have episodes of chest pain this morning with breakfast. Does notice worseing pain with food sometimes, but also chest pain with walking a distance. Chest pain that she was having yesterday was radiating to her scapula. Review of Systems Review of Systems: As per above Physical Exam Physical Exam: Constitutional: well-appearing, no acute distress HEENT: NCAT, no conjunctival injection CV: regular rhythm, no murmur appreciated, extremities well-perfused, no LE edema Resp: CTABL, no wheezes/rales/rhonchi appreciated, no increased work of breathing GI: soft, nondistended, mild diffuse tenderness, BS normoactive MSK: no gross deformities appreciated Skin: warm, dry, no rash appreciated Neuro: alert, oriented, no focal neurologic deficit appreciated Results & Data Results & Data Vital Signs (Past 12 Hours) Vital Signs Temp Pulse Pulse Resp BP BP Pulse Ox 03/05/23 06:11 78 03/05/23 05:24 36.9 C 85 18 108/65 97 03/05/23 04:50 82 20 99 03/05/23 04:45 91/53 L 03/05/23 04:45 78 24 97 03/05/23 04:40 83 19 100 03/05/23 04:30 82 18 100 03/05/23 04:30 81/55 L 03/05/23 04:20 88 15 93 03/05/23 04:15 85/56 L 03/05/23 04:15 86 20 94 03/05/23 04:10 79 21 100 03/05/23 04:00 78 16 93 03/05/23 04:00 95/64 L 03/05/23 03:50 81 14 98 03/05/23 03:45 126/86 03/05/23 03:45 86 27 H 03/05/23 03:40 86 15 03/05/23 03:37 116/68 03/05/23 03:30 76 14 93 03/05/23 03:30 100/63 03/05/23 03:20 77 15 100 03/05/23 03:15 83/58 L 03/05/23 03:15 82 26 H 98 03/05/23 03:10 83 25 H 94 03/05/23 03:00 77 15 100 03/05/23 03:00 92/58 L 03/05/23 02:50 72 12 100 03/05/23 02:45 88/58 L 03/05/23 02:45 75 14 99 03/05/23 02:40 77 12 100 03/05/23 02:30 97/69 L 03/05/23 05:01 03/05/23 04:09 03/05/23 04:27 84 03/05/23 00:18 84 03/05/23 02:30 78 16 100 03/05/23 02:20 79 21 100 03/05/23 02:15 86/62 L 03/05/23 02:15 75 13 99 03/05/23 02:10 78 14 100 03/05/23 02:00 80 18 100 03/05/23 02:00 86/57 L 03/05/23 01:50 75 15 100 03/05/23 01:45 85/54 L 03/05/23 01:45 78 18 100 03/05/23 01:40 77 11 L 100 03/05/23 02:00 03/05/23 01:32 92 H 18 92 03/05/23 01:31 122/74 03/05/23 01:27 80 21 93 03/05/23 01:20 82 17 90 03/05/23 01:18 103 H 22 90 03/05/23 01:18 72/44 L 03/05/23 01:16 61/37 L 03/05/23 01:16 75 17 94 03/05/23 01:10 79 19 93 03/05/23 01:00 80 23 96 03/05/23 01:00 63/42 L 03/05/23 00:50 79 13 93 03/05/23 00:46 80 7 L 92 03/05/23 00:46 74/41 L 03/05/23 00:40 82 10 L 95 03/05/23 00:30 81 17 96 03/05/23 00:30 74/47 L 03/05/23 00:20 87 26 H 99 03/05/23 00:16 76/44 L 03/05/23 00:16 83 17 94 03/05/23 00:10 78 18 95 03/05/23 00:00 85 14 94 03/05/23 00:00 86/49 L 03/04/23 23:50 84 15 95 03/04/23 23:45 75/47 L 03/04/23 23:45 85 13 95 03/04/23 23:40 84 19 100 03/04/23 23:30 85 17 95 03/04/23 23:30 78/50 L 03/04/23 23:20 95 H 14 96 03/04/23 23:15 87 14 95 03/04/23 23:15 81/47 L 03/04/23 23:10 88 14 97 03/04/23 23:01 91 H 18 99 03/04/23 23:01 77/42 L 03/04/23 23:00 89 18 98 03/04/23 22:45 91/53 L 03/04/23 22:45 88 20 96 03/04/23 22:40 91 H 18 03/04/23 22:31 62/44 L 03/04/23 22:31 86 25 H 92 03/04/23 22:30 85 22 93 03/04/23 22:20 99 H 16 94 03/04/23 22:16 74/55 L 03/04/23 22:16 91 H 15 93 03/04/23 22:10 86 9 L 94 03/04/23 22:00 86 12 95 03/04/23 22:00 87/48 L 03/04/23 21:50 89 4 L 92 03/04/23 21:45 88 18 97 03/04/23 21:45 95/58 L 03/04/23 21:40 95 H 20 03/04/23 21:30 89 21 81 L 03/04/23 21:30 93/58 L 03/04/23 21:20 91 H 11 L 95 03/04/23 21:15 88 16 94 03/04/23 21:15 87/57 L 03/04/23 20:26 85 03/04/23 21:10 92 H 16 03/04/23 21:00 92 H 18 96 03/04/23 21:00 105/72 03/04/23 20:50 15 83 L 03/04/23 20:45 90 21 90 03/04/23 20:45 90/53 L 03/04/23 20:40 94 H 23 99 03/04/23 20:32 88 13 96 03/04/23 20:32 88/53 L 03/04/23 20:31 90 19 94 03/04/23 20:26 92 03/04/23 20:12 36.5 C 85 16 64/37 L 98 O2 Del Method O2 Flow Rate 03/05/23 06:11 03/05/23 05:24 Room Air 03/05/23 04:50 2 03/05/23 04:45 03/05/23 04:45 03/05/23 04:40 03/05/23 04:30 03/05/23 04:30 03/05/23 04:20 03/05/23 04:15 03/05/23 04:15 03/05/23 04:10 03/05/23 04:00 03/05/23 04:00 03/05/23 03:50 03/05/23 03:45 03/05/23 03:45 03/05/23 03:40 03/05/23 03:37 03/05/23 03:30 03/05/23 03:30 03/05/23 03:20 03/05/23 03:15 03/05/23 03:15 03/05/23 03:10 03/05/23 03:00 03/05/23 03:00 03/05/23 02:50 03/05/23 02:45 03/05/23 02:45 03/05/23 02:40 03/05/23 02:30 03/05/23 05:01 Nasal Cannula 2 03/05/23 04:09 Nasal Cannula 03/05/23 04:27 03/05/23 00:18 03/05/23 02:30 03/05/23 02:20 03/05/23 02:15 03/05/23 02:15 03/05/23 02:10 03/05/23 02:00 03/05/23 02:00 03/05/23 01:50 03/05/23 01:45 03/05/23 01:45 03/05/23 01:40 03/05/23 02:00 Nasal Cannula 03/05/23 01:32 Nasal Cannula 2 03/05/23 01:31 03/05/23 01:27 03/05/23 01:20 03/05/23 01:18 03/05/23 01:18 03/05/23 01:16 03/05/23 01:16 03/05/23 01:10 03/05/23 01:00 03/05/23 01:00 03/05/23 00:50 03/05/23 00:46 03/05/23 00:46 03/05/23 00:40 03/05/23 00:30 03/05/23 00:30 03/05/23 00:20 03/05/23 00:16 03/05/23 00:16 03/05/23 00:10 03/05/23 00:00 03/05/23 00:00 03/04/23 23:50 03/04/23 23:45 03/04/23 23:45 03/04/23 23:40 03/04/23 23:30 03/04/23 23:30 03/04/23 23:20 03/04/23 23:15 03/04/23 23:15 03/04/23 23:10 03/04/23 23:01 03/04/23 23:01 03/04/23 23:00 03/04/23 22:45 03/04/23 22:45 03/04/23 22:40 03/04/23 22:31 03/04/23 22:31 03/04/23 22:30 03/04/23 22:20 03/04/23 22:16 03/04/23 22:16 03/04/23 22:10 03/04/23 22:00 03/04/23 22:00 03/04/23 21:50 03/04/23 21:45 03/04/23 21:45 03/04/23 21:40 03/04/23 21:30 03/04/23 21:30 03/04/23 21:20 03/04/23 21:15 03/04/23 21:15 03/04/23 20:26 03/04/23 21:10 03/04/23 21:00 03/04/23 21:00 03/04/23 20:50 03/04/23 20:45 03/04/23 20:45 03/04/23 20:40 03/04/23 20:32 03/04/23 20:32 03/04/23 20:31 03/04/23 20:26 Room Air 03/04/23 20:12 Room Air Resident Activity Tracking Resident Involvement: Resident Care Provided Care Provided: Adult Hospital Medicine
[2023-03-05 08:16] LABS: Folate (Folic Acid),Ser orPlas > 22.30 ng/ml (>5.38)
[2023-03-05 08:17] LABS: Vitamin B12 674 pg/ml (180-914)
[2023-03-05 10:50] LABS: Creatinine Clr Calc Pharmacy 41.7 ml/min
[2023-03-05] MEDS: FOLIC ACID 1 MG TAB PO SCH (10:51)
[2023-03-05] MEDS: THIAMINE HCL 100 MG TAB PO SCH (10:51)
[2023-03-05] MEDS ORDERED: MoRPHine SULFATE 2 MG/ML CARP IV STA (12:47)
[2023-03-05 13:36] LABS: Hematocrit (blood only) 23.9 % (37.0-47.0); Hemoglobin 7.9 g/dl (12.0-16.0)
[2023-03-05] MEDS ORDERED: MAGNESIUM SULFATE / D5W 1 GM/100 ML BAG IV ONE (14:13)
[2023-03-05] MEDS ORDERED: IOVERSOL 350 MG 125mL Prefilled Syringe IV ONE (14:38)
[2023-03-05] MEDS: SUCRALFATE 1 GM/10 ML UDC PO SCH ×3 (14:54→20:56)
--- NOTE | 2023-03-05 15:11 | CT Scan Report ---
CT ANGIOGRAPHY OF THE ABDOMEN CLINICAL HISTORY: Abdominal pain. COMPARISON STUDY: CT of the abdomen pelvis January 09, 2014. Abdominal series February 04, 2023. TECHNIQUE: Helical axial images of the abdomen were obtained during arterial phase following intraven ous injection of 114 cc of Optiray 350 IV. Sagittal and coronal reconstructions were viewed as well a s maximal intensity projections on an independent 3-D workstation. Automated exposure control was uti lized for the study. A dose lowering technique was utilized adhering to the principles of ALARA. FINDINGS: Please note that the CTA of the chest will be reported separately. 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 A moderate sized hiatal hernia is noted. There are trace bilateral pleural effusions. No pneumatosis, free air or portal venous gas within the abdomen is identified. Mild dilatation of the common bile duct is likely related to cholecystectomy. There is hepatic steatosis. Spleen, adrenal glands and kidneys are unremarkable on arterial phase exam. No hy dronephrosis. Caliber and wall thickness of visualized small and large bowel are normal. No evidence for acute appendicitis. Caliber of the abdominal aorta is normal. There is mild plaque within the abd ominal aorta and the branch vessels. No significant stenoses are identified. The celiac axis, superio r mesenteric artery and inferior mesenteric artery are patent. The renal arteries are patent. No diss ection within the abdominal aorta. There is no aneurysm within the abdomen. IMPRESSION: 1. Normal caliber abdominal aorta with mild plaque within the abdominal aorta and branch vessels. No significant stenosis. No abdominal aortic dissection. No aneurysm within the abdomen. 2. Hepatic steatosis. 3. Mild biliary ductal dilatation. This is likely related to cholecystectomy however could be correla yuan with liver function tests. ACT 112: Negative or not required by law. Electronically signed by: Ajit Young M.D. 03/05/2023 3:10 PM
--- NOTE | 2023-03-05 16:39 | CT Scan Report ---
CT ANGIOGRAM OF THE CHEST CLINICAL HISTORY: Atypical chest pain. COMPARISON STUDY: Chest CT dated 01/25/2023. TECHNIQUE: Following the IV administration of 114 cc of Optiray 350, CT angiogram of the chest was pe rformed from the thoracic inlet to the upper abdomen utilizing the dissection protocol. Images are re viewed in the axial, sagittal, and coronal planes. 3-D MIPS images are created and assessed. IV contr ast was administered without complication. A dose lowering technique was utilized adhering to the pr inciples of EDNA. FINDINGS: Thyroid: Imaged portions of the thyroid gland are normal in size and attenuation. Thoracic aorta: There is moderate atherosclerotic calcification of the thoracic aorta, which is silvino l in caliber and demonstrates standard 3-vessel arch anatomy. No dissection is seen. The arch vessels are widely patent. Pulmonary vasculature: The pulmonary trunk is dilated, measuring 4.0 cm in diameter. This suggests pu lmonary artery hypertension. There are no filling defects identified in the main, lobar, or segmental pulmonary arteries to suggest pulmonary embolus. Heart: The heart is mildly enlarged and without pericardial effusion. The mitral annulus is densely c alcified. Lungs and pleural spaces: Subpleural reticulation is seen throughout both lungs and there are foci of parenchymal scarring. There is no airspace consolidation typical for pneumonia. The trachea and cent ral airways are clear. There are trace pleural effusions with dependent atelectasis. Mediastinum: There is no mediastinal lymphadenopathy. Skylar: Clear. Axillae: There is no axillary lymphadenopathy. Upper abdomen: The esophagus is distended and patulous, and contains fluid to the level of the pulmon juanjose trunk. 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 Partially visualized upper abdominal viscera is otherwise grossly unremarkable. Skeletal structures: The skeletal structures are osteopenic. Degenerative change and mild hyperkyphos is is noted in the thoracic spine. No lytic or blastic bony lesions are seen. 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 IMPRESSION: 1. Unremarkable CT angiogram of thoracic aorta. No change from 01/25/2023. 2. There is no evidence of pulmonary embolus in the main, lobar, or segmental pulmonary arteries. 3. Cardiomegaly with evidence of pulmonary artery hypertension. 4. Trace pleural effusions. 5. Moderate to large hiatal hernia. The esophagus is distended and patulous, and contains fluid to th e level of the pulmonary trunk. Note that this may place the patient at risk for aspiration. 6. There is no airspace consolidation typical for pneumonia. 7. Additional findings as above. ACT 112: Negative or not required by law. Electronically signed by: Sanjiv Lemus M.D. 03/05/2023 4:38 PM
[2023-03-05] MEDS ORDERED: ALUMINUM/MAGNESIUM SUSP 30 ML UDC PO PRN (17:47)
[2023-03-05] MEDS ORDERED: ALUMINUM/MAGNESIUM SUSP 30 ML UDC PO SCH (18:00)
--- NOTE | 2023-03-05 18:29 | Billing Data ---
Date of Service March 05, 2023 Coding Level of Care Code 06544 SUB INP/OBS CARE MIN
--- NOTE | 2023-03-05 19:13 | XCELERA ---
[id number]
[2023-03-05] MEDS: PANTOprazole 40 MG in SYRINGE 0 ML IV SCH (20:55)
[2023-03-05] MEDS: SERTRALINE HCL 100 MG TABLET PO SCH (20:56)
[2023-03-05] MEDS: QUEtiapine FUMARATE 100 MG TABLET PO SCH (20:56)
[2023-03-05] MEDS: FAMOTIDINE 20 MG in SYRINGE 3 ML IV SCH (20:56)
[2023-03-05] MEDS ORDERED: PANTOprazole 40 MG TAB PO SCH (21:00)
[2023-03-05] MEDS ORDERED: FAMOTIDINE 20 MG TAB PO SCH (21:00)
--- NOTE | 2023-03-05 22:07 | Billing Data ---
Date of Service March 05, 2023 Coding Level of Care Code 38224 INT INP/OBS CARE
[2023-03-05] MEDS: hydrOXYzine HCl 25 MG TAB PO PRN (23:24)
[2023-03-06] MEDS: SODIUM CHLORIDE 0.9% 1,000 ML IV SCH ×2 (04:49→13:35)
[2023-03-06 06:29] LABS: Basophils # (auto) 0.02 K/uL (0.00-0.20); Basophils % (auto) 0.5 %; Eosinophils # (auto) 0.07 K/uL (0.00-0.50); Eosinophils % (auto) 1.8 %; Hematocrit (blood only) 21.7 % (37.0-47.0); Immature Granulocytes # (auto) 0.01 K/uL (0.01-0.20); Immature Granulocytes % (auto) 0.3 %; Lymphocytes # (auto) 1.08 K/uL (1.20-3.40); Lymphocytes % (auto) 27.4 %; Mean Corpuscular Hgb Conc 32.3 g/dL (32.0-36.0); Mean Corpuscular Volume 86.8 fL (80.0-100.0); Mean Platelet Volume 9.2 fL (9.4-12.4); Monocytes % (auto) 17.8 %; Neutrophils # (auto) 2.06 K/uL (1.40-6.50); Neutrophils % (auto) 52.2 %; Platelet Count 162 K/uL (130-400); RDW Coefficient of Variation 22.4 % (11.5-14.5); RDW Standard Deviation 70.5 fL (36.4-46.3); White Blood Count 3.94 K/ul (4.8-10.8)
[2023-03-06 06:49] LABS: BUN Creatinine Ratio 20.3 (10-20); Calcium 7.4 mg/dl (8.6-10.3); Creatinine Clr Calc Pharmacy 65.4 ml/min; Est GFR (African American) 89.8 ml/min; Est GFR (Non-African American) 77.5 ml/min; Magnesium 1.8 mg/dl (1.7-2.4); Potassium 3.8 mmol/L (3.5-5.1)
[2023-03-06 06:53] LABS: Anisocytosis Present; Polychromasia 1+; Target Cells 1+
--- NOTE | 2023-03-06 06:57 | Hospitalist Progress Note ---
Date of Service March 06, 2023 Assessment & Plan (1) Chest pain: Plan: 67 year old female w/ PmHx alcoholism, chronic anemia, dysphagia, hypertension, hiatal hernia, gastric bypass, sacroiliitis admitted for hypotension and poor nutrition. Chest pain: -New onset chest pain over past week along with poor nutrition. -EKG NSR without any acute ST changes. -Troponin 7.4, lactate 2.8 -> 1.8. -CXR without any acute processes. -EGD from 01/31 w/ esophageal ulcer w/o stigmata of recent bleeding, benign esophageal stenosis. -TTE pending - Does state that she has some exertional chest pain, would consider further work-up with stress test in the future - Most likely cause secondary to PUD, likely worsened by her chronic alcohol use - CTA without signs of acute bleeding or aortic dissection, showed dilation of esophagus, concern for stricture - GI cocktail, PPI BID, famotidine BID IV, Maylox, Cerafate) improved chest pain secondary to upper GI issues and have decrease back pain radiation from a 5 to a 2. - Consult GI Normocytic Anemia - hemoglobin 9.6 on admission, 7.5 yesterday morning, repeat yesterday afternoon 7.9, and repeat this morning was 7.0, and repeat today was 7.5 - B12 and folate wnl - concern for GI bleed given history of PUD/GERD - continue to trend CBC GERD - continue famotidine, pantoprazole, Carafate - can add maalox - consider adding lidocaine if patient prefers - prenatal genetic counselor patient on adherence to the PPI she was prescribed rather than taking it PRN - Given that the patient has expressed with obtaining famotidine and Cerafate, consult pharmacy on prescription filling Hypotension: -Patient hypotensive in the ED to 60's/40's. -Likely secondary to hypovolemia in the setting of poor PO intake and GI bleeding -Continue maintenance fluids at 125 -BP has been improving and this morning was 115/73 Alcohol Abuse - AWSS protocol - continue folate, B12 supplementation Poor nutrition/hypomagnesemia/hyponatremia: -History of poor nutrition, alcohol intake. -Patient's alcohol level negative today. - Magnesium repleted - Na 126 on admission up to 133> continue to trend -Likely related to poor nutrition. -Microbiology Coordinator recommended to utilize Meals on Wheels and to integrate delivery to the home. Patient was made aware this is based on income and is comfortable with that. Dysphagia - Barium swallow study showed moderate esophageal dysmotility. Mild esophageal dilatation. Status post Tayler-en-Y gastric bypass. Moderate sized hiatal hernia. - Awaiting GI consult HTN - hold HCTZ, lisinopril given hypotension Insomnia - continue Seroquel qHS - complete STOP-BANG and The [place]on Sleepiness Scale questionnaire - consider possible sleep study in the outpatient setting once patient is discharge for PHILIP rule-out. Depression - continue sertraline - consult behavioral liaison per pt request F/E/N/GI: Regular diet. DVT Prophylaxis: SCD Code status: Full code (2) Poor nutrition: (3) Hypomagnesemia: (4) Hyponatremia: Admission and Anticipated Discharge Date Admission Date: March 04, 2023 Supervising Physician Co-Signing Physician Notes I personally examined the patient and verified all galo points of history and exam, discussed case, and agree with decision making with Dr Chen Notes that she feels better is getting around better and wants to go home. Whenever I point out to her that she has not eaten anything and her main reason for admission was a severe failure to thrive and difficulty with intake at home, she notes that she thinks she will do fine. Whenever I discussed that it would be safer/better to follow how she does with p.o. intake for at least a day before considering discharge, she notes that she still wants to go home today. I discussed that given she was so malnourished that she essentially came in with a degree of hypovolemic shock, and her situation really surprisingly was essentially life-threatening, and her situation really is not that much different yetparticularly if she is home to her own devices, I really think it could be a catastrophically bad idea. She understands my concerns, and disagrees and wants to go home anywayI discussed that given my high level of concern it would truly have to be AGAINST MEDICAL ADVICE should she leave, but that she does have capacity. Vitals noted, in general she is awake and alert pleasant appears somewhat stressed, although fortunately no physical distress. HEENT normocephalic atraumatic mucous membranes moist. Breathing unlabored no accessory muscle use good effort. Skin shows no rashes no pallor or icterus. Hypotensionfortunately appears to be hypovolemic rather than other etiologies, and in the hypovolemic, while she has some anemia, I suspect it is more just low volume. Remedied with IV fluids.malnutrition anemia - don't believe we can truly rule out upper GI oozing given her lack of adherence to PPI and ongoing EtoH consumption - certainly not hemorrhaging and treatment would be PPI/H2/carafate and EtOH cessation. nutrition support, supportive care. with poor PO intake to the point of severe dehydration/hypotension -> d/w her frankly that i would want to see decent PO intake (and for more than 1 meal) before thinking she's safe for home. discussed that leaving now, with my high level of concern for legitimately life threatening complications given how she presented this admission (not even 48hrs ago), would have to be AMA; discussed she does have capacity and can make her own decisions, but this is a decision i would disagree with completely. continue fluids, follow PO intake, follow Hgb, nutrition support, PT/OT. otherwise as above otherwise as above Subjective She is feeling better than yesterday after receiving the GI cocktail, Cerafate, and Protonix. She still feels pain and pressure in her chest/upper GI area, but says the pain and pressure is much less compared to prior to starting the medications. Additionally, the upper back pain has gone down from a 5 to a 2. The patient noted that she has never taken famotidine and takes her PPI prescription as needed for her upper GI issues. She was taking it at the time of her latest ED admission. She has had no history of esophageal stricture up until the EGD from 01/31 and one in [place] within the past year. Denied all potential causes of esophageal stricture aside from chronic GERD. Awaiting GI consult. Regarding her dizziness and fatigue, she feels that it is stagnant compared to yesterday. She used her walker to get to the toilet today and continues to feel unsteadiness. She still feels as if there is a lot of snot in the back of her throat and e xperienced difficulty swallowing last evening when eating rice and carrots. Has also noted difficulty in forming her words. She was seen by speech therapy and was advised to undergo a swallow study. Swallow study with barium was done late this morning and we are currently awaiting results. A nutrition consult was done as well, during which Meals on Wheels was discussed. A dietary referral for home delivery has been put into place. It is income based, and the patient said she is okay with it. OT consult was done and regarding PT consult, the social science research assistant assigned to her case is working on confirming how much PT would cost as well as which facility would suit her best. She did not have any feelings of tingling and numbness in her fingers and denied any neuro symptoms, she believes it was an isolated event. She expressed having better sleep with the seroquil being switched to her nighttime medication and woke up briefly, but slept well overall. The patient did mention having a disagreement with her sister early this morning, so she is no unsre as to whether her sister will move to [place] to help take care of her. Review of Systems Review of Systems: As per above Physical Exam Physical Exam: Constitutional: well-appearing, no acute distress HEENT: NCAT, no conjunctival injection CV: regular rhythm, no murmur appreciated, extremities well-perfused, no LE edema Resp: CTABL, no wheezes/rales/rhonchi appreciated, no increased work of breathing GI: soft, nondistended, mild diffuse tenderness, BS normoactive MSK: no gross deformities appreciated Skin: warm, dry, no rash appreciated Neuro: alert, oriented, no focal neurologic deficit appreciated Results & Data Results & Data Vital Signs (Past 12 Hours) Vital Signs Temp Pulse Pulse Resp BP Pulse Ox O2 Del Method 03/06/23 02:45 36.3 C L 85 18 120/79 94 Room Air 03/05/23 22:44 36.9 C 81 18 115/70 96 Room Air 03/05/23 23:51 78 03/05/23 19:54 36.5 C 75 20 142/73 H 97 Room Air Resident Activity Tracking Resident Involvement: Resident Care Provided Care Provided: Adult Hospital Medicine
[2023-03-06 07:34] LABS: Ferritin 97.9 ng/ml (8-388)
[2023-03-06] MEDS: FOLIC ACID 1 MG TAB PO SCH (08:33)
[2023-03-06] MEDS: SUCRALFATE 1 GM/10 ML UDC PO SCH ×4 (08:33→21:52)
[2023-03-06] MEDS: PANTOprazole 40 MG in SYRINGE 0 ML IV SCH ×2 (08:33→21:53)
[2023-03-06] MEDS: THIAMINE HCL 100 MG TAB PO SCH (08:34)
[2023-03-06] MEDS: FAMOTIDINE 20 MG in SYRINGE 3 ML IV SCH ×2 (08:36→21:53)
--- NOTE | 2023-03-06 12:02 | Fluoroscopy Report ---
[place] barium swallow CLINICAL HISTORY: Dysphagia. Assess for esophageal dysfunction. COMPARISON STUDY: CTA of the chest March 05, 2023. FLUOROSCOPY TIME: 1.09 minutes FLUOROSCOPY IMAGES: 19 Ka,r: 27.3 mGy FINDINGS: There are postoperative findings consistent with Tayler-en-Y gastric bypass. A moderate sized hiatal hernia is present. Moderate esophageal dysmotility is noted. No esophageal mass or stricture is identified. Caliber of the opacified jejunum was normal. The esophagus is mildly dilated. IMPRESSION: 1. Moderate esophageal dysmotility. Mild esophageal dilatation. 2. Status post Tayler-en-Y gastric bypass. Moderate sized hiatal hernia. ACT 112: Negative or not required by law. Electronically signed by: Ajit Young M.D. 03/06/2023 12:00 PM
[2023-03-06 13:21] LABS: Hematocrit (blood only) 22.9 % (37.0-47.0); Hemoglobin 7.5 g/dl (12.0-16.0)
--- NOTE | 2023-03-06 16:24 | Gastrointestinal Consultation ---
Date of Consultation March 06, 2023 Assessment & Plan (1) Chest pain: Pleasant lady with chest pain and known esophageal ulcer. I don't think her chest pain is related to her esophagus, although I guess it could be spasm but she has poor motility so muscle strength of esophagus is not good. Her pain sounds biliary but she had her GB out and her LFT's are normal on admit. I would still be concerned about cardiac chest pain. I don't think her anemia is related to GI bleeding. Probably anemia of chronic disease. She has dysphagia but no stricture seen on barium swallow. She has poor motility which does not respond to any intervention. She will have to use gravity and liquids to get food down. I do plan repeat EGD but in two more months to reassess ulcer. No barriers from GI standpoint to discharge. Has appt in GI clinic next week. History of Present Illness Reason for Consultation: chest pain Attending Physician: George Snyder, History of Present Illness 67 year old female known to me from recent EGD which showed an esophageal ulcer. She tells me that she had a "squeezing chest pain" that radiated into her upper back yesterday and that made her come to ER. She does not eat well as she has difficulty swallowing and chronic nausea. She says she tries to keep up with liquids. Currently she is feeling well and ready to go home. Barium swallow ordered today showed poor motility but no stricture and then her gastric bypass. Hemoglobin is low but she denies any bleeding or melena. Allergies Allergy/AdvReac Type Severity Reaction Status Date / Time No Known Allergies Allergy Verified 03/04/23 22:17 Home Medications Medication Instructions Recorded Confirmed Type quetiapine 100 mg tablet 100 mg PO HS 10/22/22 03/04/23 History hydrochlorothiazide 25 mg tablet 25 mg PO QAM PRN Edema 01/07/23 03/04/23 History hydroxyzine pamoate 100 mg capsule 100 mg PO HS 01/07/23 03/04/23 History sertraline 100 mg tablet (Zoloft) 100 mg PO HS 01/07/23 03/04/23 History tramadol 50 mg tablet 50 mg PO Q6H PRN Pain 01/07/23 03/04/23 History pantoprazole 40 mg tablet,delayed 40 mg PO QPM 01/21/23 03/04/23 History release lisinopril 10 mg tablet 10 mg PO HS 01/31/23 03/04/23 History famotidine 20 mg tablet 20 mg PO HS 03/04/23 03/04/23 History Patient History Medical History Abnormal LFTs Acute dehydration Alcohol use disorder Anemia Cholelithiasis Chronic diarrhea Depression Hypoglycemia Syncope Vitamin D deficiency Surgical History H/O: hysterectomy History of section History of cholecystectomy History of colonoscopy History of esophagogastroduodenoscopy (EGD) History of open reduction and internal fixation (ORIF) procedure right wrist--hardware in place History of total left hip replacement History of wisdom tooth extraction Family History Other No family history of adverse response to anesthesia Social History Smoking Status: Never smoker Second Hand Exposure: No; Do You Dip or Chew Tobacco: No; Hx Alcohol Use: Yes Alcohol type: hard liquor Hx Substance Use: No Preferred Language: Croatian Communication Ability: Effective Lead Recoverer Required: No Beliefs That Will Affect Care: None Current Living Situation: Alone Other Information That Helps Us Care for You: No Feels Safe at Home: Yes Safety Concerns: Feels Safe At This Time Assistive Devices: Cane and Walker Review of Systems Review of Systems: All systems reviewed & are unremarkable except as noted in HPI & below Physical Exam Constitutional: WD/WN, vitals as above no acute distress Eyes: PERRL, conjunctivae normal, anicteric sclerae ENMT: external ear and nose normal, oropharynx normal Neck: trachea midline, no thyromegaly Respiratory: normal respiratory effort, lungs clear to auscultation Cardiovascular: RRR, no murmur, no edema Gastrointestinal (Abdomen): normal bowel sounds, soft, nontender, no hepatosplenomegaly Musculoskeletal: Extremities: no cyanosis and no clubbing Skin: no rashes, warm and dry Neurologic: PERRL, EOMI, accommodation nl, no face palsy, no dysarthria Psychiatric: Orientation: alert and oriented x 3 Results & Data Vital Signs (Past 12 Hours) Vital Signs Temp Pulse Pulse Resp BP Pulse Ox O2 Del Method 03/06/23 15:37 36.3 C L 72 22 137/90 99 Room Air 03/06/23 12:00 37.1 C 82 17 126/77 97 Room Air 03/06/23 09:50 71 03/06/23 08:05 36.9 C 72 18 115/73 96 Room Air Laboratory Results 03/06/23 03/06/23 03/06/23 Range/Units 12:32 06:00 06:00 WBC (4.8-10.8) K/ul RBC (4.20-5.40) M/uL Hgb 7.5 L (12.0-16.0) g/dl Hct 22.9 L (37.0-47.0) % MCV (80.0-100.0) fL MCH (25.0-34.0) pg MCHC (32.0-36.0) g/dL RDW Std Deviation (36.4-46.3) fL RDW Coeff of Cate (11.5-14.5) % Plt Count (130-400) K/uL MPV (9.4-12.4) fL Immature Gran % (Auto) % Neut % (Auto) % Lymph % (Auto) % [place] % (Auto) % Eos % (Auto) % Baso % (Auto) % Neut # (Auto) (1.40-6.50) K/uL Lymph # (Auto) (1.20-3.40) K/uL [place] # (Auto) (0.11-0.59) K/uL Eos # (Auto) (0.00-0.50) K/uL Baso # (Auto) (0.00-0.20) K/uL Immature Gran # (Auto) (0.01-0.20) K/uL Polychromasia Anisocytosis Target Cells Sodium 133 L (136-145) mmol/L Potassium 3.8 (3.5-5.1) mmol/L Chloride 106 (98-107) mmol/L Carbon Dioxide 21 (21-32) mmol/L Anion Gap 6 (3-11) BUN 16 (6-23) mg/dl Creatinine 0.79 D (0.6-1.2) mg/dl Est Cr Clr Drug Dosing 65.4 ml/min Est GFR ( Amer) 89.8 ml/min Est GFR (Non-Af Amer) 77.5 ml/min BUN/Creatinine Ratio 20.3 H (10-20) Glucose 83 (70-99(Fasting)) mg/dl Calcium 7.4 L (8.6-10.3) mg/dl Magnesium 1.8 (1.7-2.4) mg/dl Iron 11 L (35-150) mcg/dl TIBC 225 L (250-450) mcg/dl Unsaturated IBC 214 (155-355) mcg/dl Transferrin % Sat 5 L (15-50) % Ferritin 97.9 (8-388) ng/ml Blood Type Blood Type Recheck O Positive Antibody Screen 03/06/23 03/04/23 Range/Units 06:00 20:40 WBC 3.94 L (4.8-10.8) K/ul RBC 2.50 L (4.20-5.40) M/uL Hgb 7.0 L (12.0-16.0) g/dl Hct 21.7 L (37.0-47.0) % MCV 86.8 (80.0-100.0) fL MCH 28.0 (25.0-34.0) pg MCHC 32.3 (32.0-36.0) g/dL RDW Std Deviation 70.5 H (36.4-46.3) fL RDW Coeff of Cate 22.4 H (11.5-14.5) % Plt Count 162 (130-400) K/uL MPV 9.2 L (9.4-12.4) fL Immature Gran % (Auto) 0.3 % Neut % (Auto) 52.2 % Lymph % (Auto) 27.4 % [place] % (Auto) 17.8 % Eos % (Auto) 1.8 % Baso % (Auto) 0.5 % Neut # (Auto) 2.06 (1.40-6.50) K/uL Lymph # (Auto) 1.08 L (1.20-3.40) K/uL [place] # (Auto) 0.70 H (0.11-0.59) K/uL Eos # (Auto) 0.07 (0.00-0.50) K/uL Baso # (Auto) 0.02 (0.00-0.20) K/uL Immature Gran # (Auto) 0.01 (0.01-0.20) K/uL Polychromasia 1+ Anisocytosis Present Target Cells 1+ Sodium (136-145) mmol/L Potassium (3.5-5.1) mmol/L Chloride (98-107) mmol/L Carbon Dioxide (21-32) mmol/L Anion Gap (3-11) BUN (6-23) mg/dl Creatinine (0.6-1.2) mg/dl Est Cr Clr Drug Dosing ml/min Est GFR ( Amer) ml/min Est GFR (Non-Af Amer) ml/min BUN/Creatinine Ratio (10-20) Glucose (70-99(Fasting)) mg/dl Calcium (8.6-10.3) mg/dl Magnesium (1.7-2.4) mg/dl Iron (35-150) mcg/dl TIBC (250-450) mcg/dl Unsaturated IBC (155-355) mcg/dl Transferrin % Sat (15-50) % Ferritin (8-388) ng/ml Blood Type O Positive Blood Type Recheck Antibody Screen NEGATIVE Diagnostic Findings Chest X-Ray 03/04/23 20:26 SINGLE VIEW CHEST CLINICAL HISTORY: Sepsis. FINDINGS: An AP, portable, upright chest radiograph is compared to study dated 02/04/2023 and correlated with chest CT dated 01/25/2023. A hiatal hernia is noted. The heart is enlarged noting atherosclerotic calcification of the thoracic aorta. The pulmonary vasculature is noncongested. Chronic interstitial thickening is similar to previous. There is bibasilar scarring/atelectasis. No airspace consolidation or large pleural effusion is identified. No pneumothorax is seen. The skeletal structures are osteopenic. The bony thorax is grossly intact. Cholecystectomy clips are seen in the right upper quadrant. IMPRESSION: Cardiomegaly with no active disease in the chest. ACT 112: Negative or not required by law. Electronically signed by: Sanjiv Lemus M.D. 03/04/2023 10:41 PM Abdomen CTA 03/05/23 12:40 CT ANGIOGRAPHY OF THE ABDOMEN CLINICAL HISTORY: Abdominal pain. COMPARISON STUDY: CT of the abdomen pelvis January 09, 2014. Abdominal series February 04, 2023. TECHNIQUE: Helical axial images of the abdomen were obtained during arterial phase following intravenous injection of 114 cc of Optiray 350 IV. Sagittal and coronal reconstructions were viewed as well as maximal intensity projections on an independent 3-D workstation. Automated exposure control was utilized for the study. A dose lowering technique was utilized adhering to the principles of ALARA. FINDINGS: Please note that the CTA of the chest will be reported separately. 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 A moderate sized hiatal hernia is noted. There are trace bilateral pleural effusions. No pneumatosis, free air or portal venous gas within the abdomen is identified. Mild dilatation of the common bile duct is likely related to cholecystectomy. There is hepatic steatosis. Spleen, adrenal glands and kidneys are unremarkable on arterial phase exam. No hydronephrosis. Caliber and wall thickness of visualized small and large bowel are normal. No evidence for acute appendicitis. Caliber of the abdominal aorta is normal. There is mild plaque within the abdominal aorta and the branch vessels. No significant stenoses are identified. The celiac axis, superior mesenteric artery and inferior mesenteric artery are patent. The renal arteries are patent. No dissection within the abdominal aorta. There is no aneurysm within the abdomen. IMPRESSION: 1. Normal caliber abdominal aorta with mild plaque within the abdominal aorta and branch vessels. No significant stenosis. No abdominal aortic dissection. No aneurysm within the abdomen. 2. Hepatic steatosis. 3. Mild biliary ductal dilatation. This is likely related to cholecystectomy however could be correlated with liver function tests. ACT 112: Negative or not required by law. Electronically signed by: Ajit Young M.D. 03/05/2023 3:10 PM Chest CTA 03/05/23 12:40 CT ANGIOGRAM OF THE CHEST CLINICAL HISTORY: Atypical chest pain. COMPARISON STUDY: Chest CT dated 01/25/2023. TECHNIQUE: Following the IV administration of 114 cc of Optiray 350, CT angiogram of the chest was performed from the thoracic inlet to the upper abdomen utilizing the dissection protocol. Images are reviewed in the axial, sagittal, and coronal planes. 3-D MIPS images are created and assessed. IV contrast was administered without complication. A dose lowering technique was utilized adhering to the principles of ALARA. FINDINGS: Thyroid: Imaged portions of the thyroid gland are normal in size and attenuation. Thoracic aorta: There is moderate atherosclerotic calcification of the thoracic aorta, which is normal in caliber and demonstrates standard 3-vessel arch anatomy. No dissection is seen. The arch vessels are widely patent. Pulmonary vasculature: The pulmonary trunk is dilated, measuring 4.0 cm in diameter. This suggests pulmonary artery hypertension. There are no filling defects identified in the main, lobar, or segmental pulmonary arteries to suggest pulmonary embolus. Heart: The heart is mildly enlarged and without pericardial effusion. The mitral annulus is densely calcified. Lungs and pleural spaces: Subpleural reticulation is seen throughout both lungs and there are foci of parenchymal scarring. There is no airspace consolidation typical for pneumonia. The trachea and central airways are clear. There are trace pleural effusions with dependent atelectasis. Mediastinum: There is no mediastinal lymphadenopathy. Skylar: Clear. Axillae: There is no axillary lymphadenopathy. Upper abdomen: The esophagus is distended and patulous, and contains fluid to the level of the pulmonary trunk. There is a moderate to large hiatal hernia, with postsurgical changes from Tayler-en-Y gastric bypass surgery. Partially visualized upper abdominal viscera is otherwise grossly unremarkable. Skeletal structures: The skeletal structures are osteopenic. Degenerative change and mild hyperkyphosis is noted in the thoracic spine. No lytic or blastic bony lesions are seen. There are numerous chronic/healed bilateral rib fractures. IMPRESSION: 1. Unremarkable CT angiogram of thoracic aorta. No change from 01/25/2023. 2. There is no evidence of pulmonary embolus in the main, lobar, or segmental pulmonary arteries. 3. Cardiomegaly with evidence of pulmonary artery hypertension. 4. Trace pleural effusions. 5. Moderate to large hiatal hernia. The esophagus is distended and patulous, and contains fluid to the level of the pulmonary trunk. Note that this may place the patient at risk for aspiration. 6. There is no airspace consolidation typical for pneumonia. 7. Additional findings as above. ACT 112: Negative or not required by law. Electronically signed by: Sanjiv Lemus M.D. 03/05/2023 4:38 PM Barium Swallow X-Ray 03/06/23 11:00 [place] barium swallow CLINICAL HISTORY: Dysphagia. Assess for esophageal dysfunction. COMPARISON STUDY: CTA of the chest March 05, 2023. FLUOROSCOPY TIME: 1.09 minutes FLUOROSCOPY IMAGES: 19 Ka,r: 27.3 mGy FINDINGS: There are postoperative findings consistent with Tayler-en-Y gastric bypass. A moderate sized hiatal hernia is present. Moderate esophageal dysmotility is noted. No esophageal mass or stricture is identified. Caliber of the opacified jejunum was normal. The esophagus is mildly dilated. IMPRESSION: 1. Moderate esophageal dysmotility. Mild esophageal dilatation. 2. Status post Tayler-en-Y gastric bypass. Moderate sized hiatal hernia. ACT 112: Negative or not required by law. Electronically signed by: Ajit Young M.D. 03/06/2023 12:00 PM
--- NOTE | 2023-03-06 17:49 | Billing Data ---
Date of Service March 06, 2023 Coding Level of Care Code 25719 SUB INP/OBS CARE MIN
[2023-03-06] MEDS: hydrOXYzine HCl 25 MG TAB PO PRN (21:51)
[2023-03-06] MEDS: QUEtiapine FUMARATE 100 MG TABLET PO SCH (21:51)
[2023-03-06] MEDS: SERTRALINE HCL 100 MG TABLET PO SCH (21:52)
--- NOTE | 2023-03-07 06:46 | Hospitalist Progress Note ---
Date of Service March 07, 2023 Assessment & Plan (1) Chest pain: Plan: 67 year old female w/ PmHx alcoholism, chronic anemia, dysphagia, hypertension, hiatal hernia, gastric bypass, sacroiliitis admitted for hypotension and poor nutrition. Abnormal Pain secondary to Esophageal dysmobility - CTA without signs of acute bleeding or aortic dissection, showed dilation of esophagus, concern for stricture - GI consulted and plan for repeat EGD in 2 months - significant impartment with PPI BID, famotidine BID IV, Maalox, Carafate Chest pain: -New onset chest pain over past week along with poor nutrition. -EKG NSR without any acute ST changes. -Troponin 7.4, lactate 2.8 -> 1.8. -CXR without any acute processes. -EGD from 01/31 w/ esophageal ulcer w/o stigmata of recent bleeding, benign esophageal stenosis. -TTE without significant change - Does state that she has some exertional chest pain, would consider further work-up with stress test in the future Normocytic Anemia - hemoglobin 9.6 on admission, dropped to 7.5 and has been stable there - B12 and folate wnl, iron studies consistent with anemia of chronic disease - concern for GI bleed given history of PUD/GERD - continue to trend CBC GERD - continue famotidine, pantoprazole, Carafate - can add maalox - consider adding lidocaine if patient prefers - budget counselor patient on adherence to the PPI she was prescribed rather than taking it PRN Hypotension: -Patient hypotensive in the ED to 60's/40's. -Likely secondary to hypovolemia in the setting of poor PO intake and GI bleeding - Has stabilized with IVF Alcohol Abuse - AWSS protocol - continue folate, B12 supplementation Poor nutrition/hypomagnesemia/hyponatremia: -History of poor nutrition, alcohol intake. -Patient's alcohol level negative today. - Hyponatremia, hypomagnesemia resolved -Likely related to poor nutrition. -Sheet Metal Worker Supervisor recommended to utilize Meals on Wheels and to integrate delivery to the home. Patient was made aware this is based on income and is comfortable with that. Dysphagia - Barium swallow study showed moderate esophageal dysmotility. Mild esophageal dilatation. Status post Tayler-en-Y gastric bypass. Moderate sized hiatal hernia. HTN - hold HCTZ, lisinopril given hypotension Insomnia - continue Seroquel qHS - consider possible sleep study in the outpatient setting once patient is discharge for PHILIP rule-out. Depression - continue sertraline - consult behavioral liaison per pt request F/E/N/GI: Regular diet. DVT Prophylaxis: SCD Code status: Full code (2) Poor nutrition: (3) Hypomagnesemia: (4) Hyponatremia: (5) GERD (gastroesophageal reflux disease): (6) Esophageal dysmotility: Admission and Anticipated Discharge Date Admission Date: March 04, 2023 Supervising Physician Co-Signing Physician Notes I personally examined the patient and verified all galo points of history and exam, discussed case, and agree with decision making with Dr Chen informed around 730 this morning she was leaving against advice. Shortly thereafter I was informed that patient and daughter wanted to talk to me. arrived in the room shortly thereafterpatient noting that she wanted to leave. She had eaten maybe a third of her dinner and maybe a third of her breakfast and food just was not really sitting well. I reiterated my exact same concerns of last night that have not changed at allthat she has essentially untreated peptic ulcer disease in terms of her esophageal ulcer, that seems to be highly symptomatic, a degree of esophageal dysmotility that may/may not need to require management but it is too soon to tell until we have managed the ulcerative disease and provided supportive care for longer, and that she essentially came in so malnourished that she more or less was in hypovolemic shockand so little of it has changed that I feel that she would be high risk for disaster/ if she goes home againI also expressed concern about returning home drinking. It turns out her daughter was very much against the patient leaving as well, and af ter extensive discussions, the patient agreed to stay, but refused any IVs. Daughter and I both felt it would be better if the patient were to go to a facility for rehab and ongoing supportive care/safety after hospital discharge, but unfortunately after discussion that case management had with several of the surrounding facilities, she is almost certainly doing too well with therapy to qualify. Vitals noted, in general she is awake and alert no physical distress. HEENT normocephalic atraumatic mucous membranes moist. Breathing unlabored no accessory muscle use good effort. Skin shows no rashes no pallor or icterus. Hypotensionfortunately appears to be hypovolemic rather than other etiologies, and in the hypovolemic, while she has some anemia, I suspect it waas more just low volume. Remedied with IV fluids.malnutrition/anemia - don't believe we can truly rule out upper GI oozing given her lack of adherence to PPI and ongoing EtoH consumption - certainly not hemorrhaging and treatment would be PPI/H2/carafate and EtOH cessationContinue the. nutrition support, supportive care. with poor PO intake to the point of severe dehydration/hypotension -> again d/w her frankly that i would want to see decent PO intake ( and she is not doing well yet) before thinking she's safe for home. discussed that leaving now, with my high level of concern for legitimately life threatening complications given how she presented this admission (not even 48hrs ago), has not really changed given her lack of significant progress yet, in the short timeframe of what will likely take quite a while to treatfortunately her daughter did not want her to leave as well. Continue current care otherwise as above Subjective Pt seen at bedside. Noted to have some confusion, overnight. Oriented this morning. Pain significantly better. Tolerated dinner and breakfast this morning. Review of Systems Review of Systems: As per above Physical Exam Physical Exam: Constitutional: well-appearing, no acute distress HEENT: NCAT, no conjunctival injection CV: regular rhythm, no murmur appreciated, extremities well-perfused, no LE edema Resp: CTABL, no wheezes/rales/rhonchi appreciated, no increased work of breathing GI: soft, nondistended, mild diffuse tenderness, BS normoactive MSK: no gross deformities appreciated Skin: warm, dry, no rash appreciated Neuro: alert, oriented, no focal neurologic deficit appreciated Results & Data Results & Data Vital Signs (Past 12 Hours) Vital Signs Temp Pulse Resp BP BP Pulse Ox O2 Del Method 03/07/23 02:39 36.8 C 78 18 130/88 98 Room Air 03/06/23 23:39 36.6 C 77 18 119/80 98 Room Air 03/06/23 19:36 36.7 C 68 22 135/85 99 Room Air Resident Activity Tracking Resident Involvement: Resident Care Provided Care Provided: Adult Hospital Medicine
[2023-03-07] MEDS: SUCRALFATE 1 GM/10 ML UDC PO SCH ×4 (08:46→19:30)
[2023-03-07] MEDS: THIAMINE HCL 100 MG TAB PO SCH (08:46)
[2023-03-07] MEDS: FOLIC ACID 1 MG TAB PO SCH (08:46)
[2023-03-07] MEDS: FAMOTIDINE 20 MG in SYRINGE 3 ML IV SCH (08:49)
[2023-03-07] MEDS: PANTOprazole 40 MG in SYRINGE 0 ML IV SCH (08:49)
[2023-03-07] MEDS: PANTOprazole 40 MG TAB PO SCH ×2 (09:28→19:32)
[2023-03-07] MEDS: FERROUS GLUCONATE 324 MG TAB PO SCH (10:00)
[2023-03-07] MEDS: FAMOTIDINE 20 MG TAB PO SCH ×2 (10:00→19:32)
[2023-03-07 10:06] LABS: Basophils # (auto) 0.02 K/uL (0.00-0.20); Basophils % (auto) 0.5 %; Eosinophils # (auto) 0.06 K/uL (0.00-0.50); Eosinophils % (auto) 1.4 %; Hematocrit (blood only) 23.3 % (37.0-47.0); Hemoglobin 7.5 g/dl (12.0-16.0); Immature Granulocytes # (auto) 0.02 K/uL (0.01-0.20); Immature Granulocytes % (auto) 0.5 %; Lymphocytes # (auto) 0.86 K/uL (1.20-3.40); Lymphocytes % (auto) 19.7 %; Mean Corpuscular Hgb Conc 32.2 g/dL (32.0-36.0); Mean Corpuscular Volume 86.9 fL (80.0-100.0); Monocytes # (auto) 0.96 K/uL (0.11-0.59); Neutrophils # (auto) 2.45 K/uL (1.40-6.50); Neutrophils % (auto) 55.9 %; Platelet Count 240 K/uL (130-400); RDW Coefficient of Variation 22.1 % (11.5-14.5); Red Blood Count 2.68 M/uL (4.20-5.40); White Blood Count 4.37 K/ul (4.8-10.8)
[2023-03-07 10:21] LABS: BUN Creatinine Ratio 12.2 (10-20); Calcium 8.3 mg/dl (8.6-10.3); Creatinine Clr Calc Pharmacy 62.1 ml/min; Est GFR (African American) 85.8 ml/min; Magnesium 1.6 mg/dl (1.7-2.4); Potassium 4.3 mmol/L (3.5-5.1)
[2023-03-07 10:36] LABS: Anisocytosis Present; Polychromasia 1+
--- NOTE | 2023-03-07 17:06 | Billing Data ---
Date of Service March 07, 2023 Coding Level of Care Code 07642 SUB INP/OBS CARE
[2023-03-07] MEDS: SERTRALINE HCL 100 MG TABLET PO SCH (19:30)
[2023-03-07] MEDS: QUEtiapine FUMARATE 100 MG TABLET PO SCH (19:31)
[2023-03-07] MEDS ORDERED: traMADol HCL 50 MG TABLET PO PRN (19:39)
[2023-03-07] MEDS: hydrOXYzine HCl 25 MG TAB PO PRN (20:13)
--- NOTE | 2023-03-08 07:42 | Hospitalist Progress Note ---
Date of Service March 08, 2023 Assessment & Plan (1) Chest pain: Plan: 67 year old female w/ PmHx alcoholism, chronic anemia, dysphagia, hypertension, hiatal hernia, gastric bypass, sacroiliitis admitted for hypotension and poor nutrition. Abnormal Pain secondary to Esophageal dysmobility - CTA without signs of acute bleeding or aortic dissection, showed dilation of esophagus, concern for stricture - GI consulted and plan for repeat EGD in 2 months - significant impartment with PPI BID, famotidine BID IV, Maalox, Carafate Chest pain: -New onset chest pain over past week along with poor nutrition. -EKG NSR without any acute ST changes. -Troponin 7.4, lactate 2.8 -> 1.8. -CXR without any acute processes. -EGD from 01/31 w/ esophageal ulcer w/o stigmata of recent bleeding, benign esophageal stenosis. -TTE without significant change -Does state that she has some exertional chest pain, would consider further work-up with stress test in the future Normocytic Anemia - hemoglobin 9.6 on admission, dropped to 7.5 and has been stable there. Hgb 7.6 today (03/08) - B12 and folate wnl, iron studies consistent with anemia of chronic disease - concern for GI bleed given history of PUD/GERD, fortunately hgb has not dropped further since 03/05 - continue to trend daily CBC GERD - continue famotidine, pantoprazole, Carafate and Maalox - consider adding lidocaine if patient prefers, although symptoms currently managed with above regimen - eap counselor patient on adherence to the PPI she was prescribed rather than taking it PRN Hypotension: -Patient hypotensive in the ED to 60's/40's. - Likely secondary to hypovolemia in the setting of poor PO intake and GI bleeding - Stabilized after receiving IVF. Normotensive since 03/05 Alcohol Abuse - [facility] protocol - continue folate, B12 supplementation - Patient inquires about starting IM Naltrexone while admitted. Had discussed this in outpatient setting, but since patient was also taking Tramadol for arthritis pain and was not comfortable with stopping it- IM Naltrexone was deferred at that time - Unfortunately IM Naltrexone is not on formulary here, will consider starting as outpatient Poor nutrition/hypomagnesemia/hyponatremia: - History of poor nutrition, alcohol intake. - Patient's alcohol level negative on admission. - Hyponatremia, hypomagnesemia resolved - Likely related to poor nutrition. - [employer]er recommended to utilize Meals on Wheels and to integrate delivery to the home. Patient was made aware this is based on income and is comfortable with that. Dysphagia - Barium swallow study showed moderate esophageal dysmotility. Mild esophageal dilatation. Status post Tayler-en-Y gastric bypass. Moderate sized hiatal hernia. HTN - hold HCTZ, lisinopril given hypotension Insomnia - continue Seroquel qHS - consider possible sleep study in the outpatient setting once patient is discharge for PHILIP rule-out. Depression - continue sertraline - consult behavioral liaison per pt request Dispo: Anticipate eventual d/c to home with home PT or outpatient PT F/E/N/GI: Regular diet. DVT Prophylaxis: SCD Code status: Full code (2) Poor nutrition: (3) Hypomagnesemia: (4) Hyponatremia: (5) GERD (gastroesophageal reflux disease): (6) Esophageal dysmotility: Admission and Anticipated Discharge Date Admission Date: March 04, 2023 Supervising Physician Co-Signing Physician Notes I personally examined the patient and verified all galo points of history and exam, discussed case, and agree with decision making with Dr Beckford feeling better eating better. HEENT normocephalic atraumatic mucous membranes moist. Breathing unlabored no accessory muscle use good effort. Skin shows no rashes no pallor or icterus. Hypotensionfortunately appears to be hypovolemic rather than other etiologies, and in the hypovolemic, while she has some anemia, I suspect it waas more just low volume. Remedied with IV fluids.malnutrition/anemia - don't believe we can truly rule out upper GI oozing given her lack of adherence to PPI and ongoing Et oH consumption - certainly not hemorrhaging and treatment would be PPI/H2/carafate and EtOH cessationContinue nutrition support, supportive care. improving. gaining insight. would like IM naltrexone otherwise as above Subjective Patient seen and examined at bedside. Pretty states that she slept better last night and agrees that staying the night was the right move. She is resting comfortably and denies any current pain. She inquires about the possibility of starting IM Naltrexone while inpatient. States that she thinks continuing PT whe n discharged will be helpful as well as well as getting [id number]. She denies any chest pain or shortness of breath. Review of Systems Review of Systems: As per above Physical Exam Constitutional: WD/WN, vitals as above Eyes: + anicteric sclerae; no conjunctival abnormality ENMT: Ears: no external ear abnormality Nose: no external nose abnormality Moist mucous membranes Respiratory: normal respiratory effort, lungs clear to auscultation Cardiovascular: Rate/Rhythm: regular rate and regular rhythm Extremities: no edema Gastrointestinal (Abdomen): Abdomen soft, nontender and nondistended Skin: no rashes, warm and dry Psychiatric: A+Ox3, euthymic affect Results & Data Results & Data Vital Signs (Past 12 Hours) Vital Signs Temp Pulse Resp BP BP Pulse Ox O2 Del Method 03/08/23 07:11 36.6 C 86 16 110/66 97 Room Air 03/07/23 21:10 36.8 C 97 H 16 146/87 H 96 Room Air Resident Activity Tracking Resident Involvement: Resident Care Provided Care Provided: Adult Hospital Medicine
[2023-03-08] MEDS: SUCRALFATE 1 GM/10 ML UDC PO SCH ×4 (07:55→19:33)
[2023-03-08] MEDS: FAMOTIDINE 20 MG TAB PO SCH ×2 (07:57→19:36)
[2023-03-08] MEDS: FERROUS GLUCONATE 324 MG TAB PO SCH (07:59)
[2023-03-08] MEDS: PANTOprazole 40 MG TAB PO SCH ×2 (08:00→19:32)
[2023-03-08] MEDS: FOLIC ACID 1 MG TAB PO SCH (08:00)
[2023-03-08] MEDS: THIAMINE HCL 100 MG TAB PO SCH (08:01)
[2023-03-08 08:30] LABS: Albumin Level 3.3 gm/dl (3.4-5.0); Bilirubin,Total 0.2 mg/dl (0.2-1.0); Calcium 8.4 mg/dl (8.6-10.3); Magnesium 1.5 mg/dl (1.7-2.4); Potassium 4.5 mmol/L (3.5-5.1)
[2023-03-08 08:36] LABS: Albumin Globulin Ratio 1.7 (0.9-2); BUN Creatinine Ratio 15.8 (10-20); Creatinine Clr Calc Pharmacy 53.6 ml/min; Est GFR (African American) 71.8 ml/min; Globulin 1.9 gm/dl (2.5-4.0); Total Protein 5.2 gm/dl (6.0-8.3)
[2023-03-08 09:21] LABS: Basophils # (auto) 0.03 K/uL (0.00-0.20); Basophils % (auto) 0.6 %; Eosinophils # (auto) 0.09 K/uL (0.00-0.50); Eosinophils % (auto) 1.9 %; Hematocrit (blood only) 22.5 % (37.0-47.0); Hemoglobin 7.6 g/dl (12.0-16.0); Immature Granulocytes # (auto) 0.04 K/uL (0.01-0.20); Immature Granulocytes % (auto) 0.8 %; Lymphocytes # (auto) 0.87 K/uL (1.20-3.40); Mean Corpuscular Hemoglobin 28.5 pg (25.0-34.0); Mean Corpuscular Hgb Conc 33.8 g/dL (32.0-36.0); Mean Corpuscular Volume 84.3 fL (80.0-100.0); Monocytes # (auto) 1.27 K/uL (0.11-0.59); Monocytes % (auto) 26.3 %; Neutrophils # (auto) 2.52 K/uL (1.40-6.50); Neutrophils % (auto) 52.4 %; Platelet Count 316 K/uL (130-400); RDW Coefficient of Variation 22.4 % (11.5-14.5); RDW Standard Deviation 69.6 fL (36.4-46.3); Red Blood Count 2.67 M/uL (4.20-5.40); White Blood Count 4.82 K/ul (4.8-10.8)
[2023-03-08 09:49] LABS: Echinocytes 1+
--- NOTE | 2023-03-08 19:01 | Billing Data ---
Date of Service March 08, 2023 Coding Level of Care Code 16468 SUB INP/OBS CARE
[2023-03-08] MEDS: SERTRALINE HCL 100 MG TABLET PO SCH (19:32)
[2023-03-08] MEDS: QUEtiapine FUMARATE 100 MG TABLET PO SCH (19:32)
[2023-03-08] MEDS: hydrOXYzine HCl 25 MG TAB PO PRN (19:33)
[2023-03-08] MEDS: POLYETHYLENE (MIRALAX) 17 GM PACK PO PRN (20:47)
--- NOTE | 2023-03-08 21:57 | Electrocardiogram Report ---
Test Reason : Blood Pressure : / mmHG Vent. Rate : 089 BPM Atrial Rate : 089 BPM P-R Int : 172 ms QRS Dur : 084 ms QT Int : 348 ms P-R-T Axes : -25 -17 114 degrees QTc Int : 423 ms Normal sinus rhythm Minimal voltage criteria for LVH, may be normal variant T wave abnormality, consider lateral ischemia Abnormal ECG When compared with ECG of 04-FEB-2023 19:59, T wave inversion now evident in Lateral leads QT has shortened Confirmed by Hector Conteh ([id number]) on 03/08/2023 9:56:26 PM Referred By: REFERRED SELF Confirmed By:Hector Conteh
[2023-03-09] MEDS: FOLIC ACID 1 MG TAB PO SCH (07:48)
[2023-03-09] MEDS: FERROUS GLUCONATE 324 MG TAB PO SCH (07:48)
[2023-03-09] MEDS: PANTOprazole 40 MG TAB PO SCH ×2 (07:48→21:17)
[2023-03-09] MEDS: THIAMINE HCL 100 MG TAB PO SCH (07:48)
[2023-03-09] MEDS: SUCRALFATE 1 GM/10 ML UDC PO SCH ×4 (07:48→21:16)
[2023-03-09] MEDS: FAMOTIDINE 20 MG TAB PO SCH ×2 (07:52→21:34)
[2023-03-09] MEDS: POLYETHYLENE (MIRALAX) 17 GM PACK PO PRN ×2 (08:00→19:58)
[2023-03-09 08:35] LABS: Basophils # (auto) 0.02 K/uL (0.00-0.20); Basophils % (auto) 0.5 %; Eosinophils # (auto) 0.06 K/uL (0.00-0.50); Eosinophils % (auto) 1.4 %; Hematocrit (blood only) 23.5 % (37.0-47.0); Hemoglobin 7.8 g/dl (12.0-16.0); Immature Granulocytes # (auto) 0.02 K/uL (0.01-0.20); Immature Granulocytes % (auto) 0.5 %; Lymphocytes # (auto) 1.27 K/uL (1.20-3.40); Lymphocytes % (auto) 29.7 %; Mean Corpuscular Hemoglobin 28.9 pg (25.0-34.0); Mean Corpuscular Hgb Conc 33.2 g/dL (32.0-36.0); Mean Platelet Volume 8.8 fL (9.4-12.4); Monocytes # (auto) 1.09 K/uL (0.11-0.59); Monocytes % (auto) 25.5 %; Neutrophils # (auto) 1.81 K/uL (1.40-6.50); Neutrophils % (auto) 42.4 %; Platelet Count 302 K/uL (130-400); RDW Coefficient of Variation 22.4 % (11.5-14.5); RDW Standard Deviation 71.3 fL (36.4-46.3); White Blood Count 4.27 K/ul (4.8-10.8)
[2023-03-09 09:09] LABS: Anisocytosis Present; Polychromasia 1+; Target Cells 1+
[2023-03-09 09:34] LABS: Albumin Globulin Ratio 1.5 (0.9-2); Albumin Level 3.1 gm/dl (3.4-5.0); BUN Creatinine Ratio 20.7 (10-20); Bilirubin,Total 0.2 mg/dl (0.2-1.0); Calcium 8.7 mg/dl (8.6-10.3); Creatinine Clr Calc Pharmacy 58.5 ml/min; Est GFR (African American) 79.9 ml/min; Est GFR (Non-African American) 68.9 ml/min; Globulin 2.1 gm/dl (2.5-4.0); Magnesium 1.6 mg/dl (1.7-2.4); Potassium 4.5 mmol/L (3.5-5.1); Total Protein 5.2 gm/dl (6.0-8.3)
--- NOTE | 2023-03-09 11:49 | Hospitalist Progress Note ---
Date of Service March 09, 2023 Assessment & Plan (1) Chest pain: Plan: 67 year old female w/ PmHx alcoholism, chronic anemia, dysphagia, hypertension, hiatal hernia, gastric bypass, sacroiliitis admitted for hypotension and poor nutrition. Abnormal Pain secondary to Esophageal dysmobility - CTA without signs of acute bleeding or aortic dissection, showed dilation of esophagus, concern for stricture - GI consulted and plan for repeat EGD in 2 months - significant impartment with PPI BID, famotidine BID IV, Maalox, Carafate Chest pain: -New onset chest pain over past week along with poor nutrition. -EKG NSR without any acute ST changes. -Troponin 7.4, lactate 2.8 -> 1.8. -CXR without any acute processes. -EGD from 01/31 w/ esophageal ulcer w/o stigmata of recent bleeding, benign esophageal stenosis. -TTE without significant change -Does state that she has some exertional chest pain, would consider further work-up with stress test in the future Normocytic Anemia - hemoglobin 9.6 on admission, dropped to 7.5 and has been stable there. Hgb 7.8 today (03/09) - B12 and folate wnl, iron studies consistent with anemia of chronic disease - concern for GI bleed given history of PUD/GERD, fortunately hgb has not dropped further since 03/05 - continue to trend daily CBC GERD - continue famotidine, pantoprazole, Carafate and Maalox - consider adding lidocaine if patient prefers, although symptoms currently managed with above regimen - personnel counselor patient on adherence to the PPI she was prescribed rather than taking it PRN Hypotension: -Patient hypotensive in the ED to 60's/40's. - Likely secondary to hypovolemia in the setting of poor PO intake and GI bleeding - Stabilized after receiving IVF. Normotensive since 03/05 Alcohol Abuse - [facility] protocol - continue folate, B12 supplementation - Patient inquires about starting IM Naltrexone while admitted. Had discussed this in outpatient setting, but since patient was also taking Tramadol for arthritis pain and was not comfortable with stopping it- IM Naltrexone was deferred at that time - Unfortunately IM Naltrexone is not on formulary here, will consider starting upon d/c Poor nutrition/hypomagnesemia/hyponatremia: - History of poor nutrition, alcohol intake. - Patient's alcohol level negative on admission. - Hyponatremia, hypomagnesemia resolved - Likely related to poor nutrition. - Revenue Cycle Consultant recommended to utilize Meals on Wheels and to integrate delivery to the home. Patient was made aware this is based on income and is comfortable with that. Dysphagia - Barium swallow study showed moderate esophageal dysmotility. Mild esophageal dilatation. Status post Tayler-en-Y gastric bypass. Moderate sized hiatal hernia. HTN - hold HCTZ, lisinopril given hypotension Insomnia - continue Seroquel qHS - consider possible sleep study in the outpatient setting once patient is discharge for PHILIP rule-out. Depression - continue sertraline - consult behavioral liaison per pt request Dispo: Anticipate eventual d/c to home with home PT or outpatient PT F/E/N/GI: Regular diet. DVT Prophylaxis: SCD Code status: Full code (2) Poor nutrition: (3) Hypomagnesemia: (4) Hyponatremia: (5) GERD (gastroesophageal reflux disease): (6) Esophageal dysmotility: Admission and Anticipated Discharge Date Admission Date: March 04, 2023 Supervising Physician Co-Signing Physician Notes I personally examined the patient and verified all galo points of history and exam, discussed case, and agree with decision making with Dr Chen feeling better eating better. would definitely like to start IM naltrexone. HEENT normocephalic atraumatic mucous membranes moist. Breathing unlabored no accessory muscle use good effort. Skin shows no rashes no pallor or icterus. Hypotensionfortunately appears to be hypovolemic rather than other etiologies, and in the hypovolemic, while she has some anemia, I suspect it waas more just low volume. Remedied with IV fluids.malnutrition/anemia - don't believe we can truly rule out upper GI oozing given her lack of adherence to PPI and ongoing EtoH consumption - certainly not hemorrhaging and treatment would be PPI/H2/carafate and EtOH cessationContinue nutrition support, supportive care. improving. gaining insight. would like IM naltrexone - working on trying to determine how to set this up. home soon otherwise as above Subjective Pt seen at bedside. Doing well. Tolerated breakfast well. Denies chest/abdominal pain. Denies lightheadedness/dizziness. Review of Systems Review of Systems: As per above Physical Exam Physical Exam: Constitutional: well-appearing, no acute distress HEENT: NCAT, no conjunctival injection CV: regular rhythm, no murmur appreciated, extremities well-perfused, no LE edema Resp: CTABL, no wheezes/rales/rhonchi appreciated, no increased work of breathing GI: soft, nondistended, mild diffuse tenderness, BS normoactive MSK: no gross deformities appreciated Skin: warm, dry, no rash appreciated Neuro: alert, oriented, no focal neurologic deficit appreciated Results & Data Results & Data Vital Signs (Past 12 Hours) Vital Signs Temp Pulse Resp BP Pulse Ox O2 Del Method 03/09/23 06:49 37 C 73 16 129/81 97 Room Air Resident Activity Tracking Resident Involvement: Resident Care Provided Care Provided: Adult Hospital Medicine
--- NOTE | 2023-03-09 15:08 | Billing Data ---
Date of Service March 09, 2023 Coding Level of Care Code 78218 SUB INP/OBS CARE
[2023-03-09] MEDS: hydrOXYzine HCl 25 MG TAB PO PRN (21:17)
[2023-03-09] MEDS: SERTRALINE HCL 100 MG TABLET PO SCH (21:17)
[2023-03-09] MEDS: QUEtiapine FUMARATE 100 MG TABLET PO SCH (21:17)
[2023-03-10 07:28] LABS: Basophils # (auto) 0.04 K/uL (0.00-0.20); Basophils % (auto) 0.8 %; Eosinophils # (auto) 0.07 K/uL (0.00-0.50); Eosinophils % (auto) 1.4 %; Hematocrit (blood only) 24.2 % (37.0-47.0); Hemoglobin 7.9 g/dl (12.0-16.0); Immature Granulocytes # (auto) 0.02 K/uL (0.01-0.20); Immature Granulocytes % (auto) 0.4 %; Lymphocytes # (auto) 2.02 K/uL (1.20-3.40); Lymphocytes % (auto) 41.4 %; Mean Corpuscular Hemoglobin 28.7 pg (25.0-34.0); Mean Corpuscular Hgb Conc 32.6 g/dL (32.0-36.0); Mean Platelet Volume 8.7 fL (9.4-12.4); Monocytes # (auto) 0.99 K/uL (0.11-0.59); Monocytes % (auto) 20.3 %; Neutrophils # (auto) 1.74 K/uL (1.40-6.50); Neutrophils % (auto) 35.7 %; Platelet Count 338 K/uL (130-400); RDW Coefficient of Variation 22.5 % (11.5-14.5); Red Blood Count 2.75 M/uL (4.20-5.40); White Blood Count 4.88 K/ul (4.8-10.8)
[2023-03-10] MEDS: PANTOprazole 40 MG TAB PO SCH (07:30)
[2023-03-10] MEDS: SUCRALFATE 1 GM/10 ML UDC PO SCH ×2 (07:30→12:20)
[2023-03-10] MEDS: FOLIC ACID 1 MG TAB PO SCH (07:31)
[2023-03-10] MEDS: THIAMINE HCL 100 MG TAB PO SCH (07:31)
[2023-03-10] MEDS: FERROUS GLUCONATE 324 MG TAB PO SCH (07:31)
[2023-03-10] MEDS: FAMOTIDINE 20 MG TAB PO SCH (07:32)
[2023-03-10 07:36] LABS: Albumin Globulin Ratio 1.6 (0.9-2); Albumin Level 3.1 gm/dl (3.4-5.0); BUN Creatinine Ratio 15.7 (10-20); Bilirubin,Total 0.2 mg/dl (0.2-1.0); Calcium 8.4 mg/dl (8.6-10.3); Creatinine Clr Calc Pharmacy 46.2 ml/min; Est GFR (African American) 65.9 ml/min; Est GFR (Non-African American) 56.9 ml/min; Globulin 1.9 gm/dl (2.5-4.0); Magnesium 1.6 mg/dl (1.7-2.4); Potassium 4.4 mmol/L (3.5-5.1)
[2023-03-10 07:52] LABS: Anisocytosis Present; Polychromasia 1+
[2023-03-10] MEDS: POLYETHYLENE (MIRALAX) 17 GM PACK PO PRN (08:15)
[2023-03-10] MEDS ORDERED: NALTREXONE HCL 50 MG TAB PO SCH (11:15)
--- NOTE | 2023-03-10 11:21 | Discharge Summary ---
Date of Service March 10, 2023 Admission HPI Per Admitting Provider Pretty is a 67 year old female w/ past medical history of alcohol abuse coming in for diarrhea and back pain. Patient states that she has never had very good control of her appetite and has to force feed herself food at times. This past week especially she had very little intake, saying she was only able to take down water and at times alcohol. She states that this past week she started to develop chest pain that would be a tight feeling and then wrap around into her back between the shoulder blades that comes and goes. She said she's also had accompanying weakness that has been worse over the past week. The weakness extends back to the past year and she moved up here from [place] due to feeling weak and wanting to be close to her daughter in case she needed extra help. She drinks one week at a time where she fills a glass up to a certain point with rum followed by filling the rest of it up with coke. She says she has not had issue in the past with withdrawal and will go one week with alcohol and then one week without alcohol. She denies any neuropathy at the feet, denies lightheadedness or dizziness, fevers, chills, cough, shortness of breath, headache, dysuria. In the room her blood pressure was low with a MAP below 65 and she stated that some days her blood pressure is high some days her blood pressure is low like that. She denies persistent diarrhea but says sometimes it's solid stool sometimes it's more watery. Her most pressing concerns at this time for coming in were the lack of nutrition and the chest pain. In the ED she was given 3L NSS and Zosyn x1. Hgb 9.6, Na 126, creatinine 1.62, magnesium 1.6, procal 1.47. CXR without active disease. Principal Diagnosis Anemia Discharge Exam Constitutional: well-appearing, no acute distress HEENT: NCAT, no conjunctival injection CV: regular rhythm, no murmur appreciated, extremities well-perfused, no LE edema Resp: CTABL, no wheezes/rales/rhonchi appreciated, no increased work of breathing GI: soft, nondistended, mild diffuse tenderness, BS normoactive MSK: no gross deformities appreciated Skin: warm, dry, no rash appreciated Neuro: alert, oriented, no focal neurologic deficit appreciated Discharge Data Allergies Allergy/AdvReac Type Severity Reaction Status Date / Time No Known Allergies Allergy Verified 03/04/23 22:17 Consultations 03/04/23 22:05 ED Decision to Admit Stat 03/05/23 15:27 Consult Behavioral Health Liaison Routine 03/05/23 17:28 Consult Gastroenterology Routine 03/06/23 14:17 Consult Gastroenterology Routine Ordered Studies 03/05/23 12:40 CT angio abdomen w con Routine CT angio chest w con Routine 03/06/23 11:00 FL barium swallow Routine Laboratory Results WBC 4.88 K/ul (4.8-10.8) 03/10/23 06:49 RBC 2.75 M/uL (4.20-5.40) L 03/10/23 06:49 Hgb 7.9 g/dl (12.0-16.0) L 03/10/23 06:49 Hct 24.2 % (37.0-47.0) L 03/10/23 06:49 MCV 88.0 fL (80.0-100.0) 03/10/23 06:49 MCH 28.7 pg (25.0-34.0) 03/10/23 06:49 MCHC 32.6 g/dL (32.0-36.0) 03/10/23 06:49 RDW Std Deviation 73.0 fL (36.4-46.3) H 03/10/23 06:49 RDW Coeff of Cate 22.5 % (11.5-14.5) H 03/10/23 06:49 Plt Count 338 K/uL (130-400) 03/10/23 06:49 MPV 8.7 fL (9.4-12.4) L 03/10/23 06:49 Immature Gran % (Auto) 0.4 % 03/10/23 06:49 Neut % (Auto) 35.7 % 03/10/23 06:49 Lymph % (Auto) 41.4 % 03/10/23 06:49 [place] % (Auto) 20.3 % 03/10/23 06:49 Eos % (Auto) 1.4 % 03/10/23 06:49 Baso % (Auto) 0.8 % 03/10/23 06:49 Neut # (Auto) 1.74 K/uL (1.40-6.50) 03/10/23 06:49 Lymph # (Auto) 2.02 K/uL (1.20-3.40) 03/10/23 06:49 [place] # (Auto) 0.99 K/uL (0.11-0.59) H 03/10/23 06:49 Eos # (Auto) 0.07 K/uL (0.00-0.50) 03/10/23 06:49 Baso # (Auto) 0.04 K/uL (0.00-0.20) 03/10/23 06:49 Immature Gran # (Auto) 0.02 K/uL (0.01-0.20) 03/10/23 06:49 Polychromasia 1+ 03/10/23 06:49 Hypochromasia Present 03/05/23 04:32 Anisocytosis Present 03/10/23 06:49 Target Cells 1+ 03/09/23 07:53 Tear Drop Cells 1+ 03/04/23 20:33 Echinocytes 1+ 03/08/23 07:33 PT 10.2 Seconds (9.0-12.0) 03/04/23 20:33 INR 0.9 (0.9-1.1) 03/04/23 20:33 APTT 28.8 Seconds (21.0-31.0) 03/04/23 20:33 PTT Ratio 1.0 03/04/23 20:33 Sodium 139 mmol/L (136-145) 03/10/23 06:49 Potassium 4.4 mmol/L (3.5-5.1) 03/10/23 06:49 Chloride 109 mmol/L (98-107) H 03/10/23 06:49 Carbon Dioxide 25 mmol/L (21-32) 03/10/23 06:49 Anion Gap 5 (3-11) 03/10/23 06:49 BUN 16 mg/dl (6-23) 03/10/23 06:49 Creatinine 1.02 mg/dl (0.6-1.2) 03/10/23 06:49 Est Cr Clr Drug Dosing 46.2 ml/min 03/10/23 06:49 Est GFR ( Amer) 65.9 ml/min 03/10/23 06:49 Est GFR (Non-Af Amer) 56.9 ml/min 03/10/23 06:49 BUN/Creatinine Ratio 15.7 (10-20) 03/10/23 06:49 Glucose 87 mg/dl (70-99(Fasting)) 03/10/23 06:49 Lactate 1.8 mmol/L (0.4-2.0) 03/04/23 22:58 Calcium 8.4 mg/dl (8.6-10.3) L 03/10/23 06:49 Magnesium 1.6 mg/dl (1.7-2.4) L 03/10/23 06:49 Iron 11 mcg/dl (35-150) L 03/06/23 06:00 TIBC 225 mcg/dl (250-450) L 03/06/23 06:00 Unsaturated IBC 214 mcg/dl (155-355) 03/06/23 06:00 Transferrin % Sat 5 % (15-50) L 03/06/23 06:00 Ferritin 97.9 ng/ml (8-388) 03/06/23 06:00 Total Bilirubin 0.2 mg/dl (0.2-1.0) 03/10/23 06:49 Direct Bilirubin 0.2 mg/dl (0-0.2) 03/04/23 20:33 AST 14 U/L (13-39) 03/10/23 06:49 ALT 10 U/L (7-52) 03/10/23 06:49 Alkaline Phosphatase 60 U/L (34-104) 03/10/23 06:49 Troponin I High Sens 7.4 pg/ml (0-14) 03/04/23 20:33 Total Protein 5.0 gm/dl (6.0-8.3) L 03/10/23 06:49 Albumin 3.1 gm/dl (3.4-5.0) L 03/10/23 06:49 Globulin 1.9 gm/dl (2.5-4.0) L 03/10/23 06:49 Albumin/Globulin Ratio 1.6 (0.9-2) 03/10/23 06:49 Vitamin B12 674 pg/ml (180-914) 03/05/23 04:32 Folate > 22.30 ng/ml (>5.38) 03/05/23 04:32 Procalcitonin 1.47 ng/ml (0-0.5) H 03/04/23 20:33 Urine Color Yellow 03/04/23 23:05 Urine Appearance Clear (Clear) 03/04/23 23:05 Urine pH 5.5 (4.5-7.5) 03/04/23 23:05 Ur Specific [place] 1.005 (1.000-1.030) 03/04/23 23:05 Urine Protein Negative (Negative) 03/04/23 23:05 Urine Glucose (UA) Negative (Negative) 03/04/23 23:05 Urine Ketones Negative (Negative) 03/04/23 23:05 Urine Blood Negative (Negative) 03/04/23 23:05 Urine Nitrite Negative (Negative) 03/04/23 23:05 Urine Bilirubin Negative (Negative) 03/04/23 23:05 Urine Urobilinogen Negative (Negative) 03/04/23 23:05 Ur Leukocyte Esterase Trace (Negative) H 03/04/23 23:05 Urine WBC (Auto) 1-5 /hpf (0-5) 03/04/23 23:05 Urine RBC (Auto) 0-4 /hpf (0-4) 03/04/23 23:05 U Hyaline Cast (Auto) 0 /lpf (0-5) 03/04/23 23:05 U Epithel Cells (Auto) 5-10 /lpf (0-5) H 03/04/23 23:05 Urine Bacteria (Auto) Negative (Negative) 03/04/23 23:05 Stool Occult Bld Scrn Negative (Negative) 03/06/23 18:13 Ethyl Alcohol mg/dL < 10.0 mg/dl (<10.0) 03/04/23 20:33 SARS-CoV-2, RNA, NAAT NEGATIVE (NEGATIVE) 03/04/23 Unknown Blood Type O Positive 03/04/23 20:40 Blood Type Recheck O Positive 03/06/23 06:00 Antibody Screen NEGATIVE 03/04/23 20:40 Impressions Chest X-Ray 03/04/23 20:26 SINGLE VIEW CHEST CLINICAL HISTORY: Sepsis. FINDINGS: An AP, portable, upright chest radiograph is compared to study dated 02/04/2023 and correlated with chest CT dated 01/25/2023. A hiatal hernia is noted. The heart is enlarged noting atherosclerotic calcification of the thoracic aorta. The pulmonary vasculature is noncongested. Chronic interstitial thickening is similar to previous. There is bibasilar scarring/atelectasis. No airspace consolidation or large pleural effusion is identified. No pneumothorax is seen. The skeletal structures are osteopenic. The bony thorax is grossly intact. Cholecystectomy clips are seen in the right upper quadrant. IMPRESSION: Cardiomegaly with no active disease in the chest. ACT 112: Negative or not required by law. Electronically signed by: Sanjiv Lemus M.D. 03/04/2023 10:41 PM Abdomen CTA 03/05/23 12:40 CT ANGIOGRAPHY OF THE ABDOMEN CLINICAL HISTORY: Abdominal pain. COMPARISON STUDY: CT of the abdomen pelvis January 09, 2014. Abdominal series February 04, 2023. TECHNIQUE: Helical axial images of the abdomen were obtained during arterial phase following intravenous injection of 114 cc of Optiray 350 IV. Sagittal and coronal reconstructions were viewed as well as maximal intensity projections on an independent 3-D workstation. Automated exposure control was utilized for the study. A dose lowering technique was utilized adhering to the principles of ALARA. FINDINGS: Please note that the CTA of the chest will be reported separately. 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 A moderate sized hiatal hernia is noted. There are trace bilateral pleural effusions. No pneumatosis, free air or portal venous gas within the abdomen is identified. Mild dilatation of the common bile duct is likely related to cholecystectomy. There is hepatic steatosis. Spleen, adrenal glands and kidneys are unremarkable on arterial phase exam. No hydronephrosis. Caliber and wall thickness of visualized small and large bowel are normal. No evidence for acute appendicitis. Caliber of the abdominal aorta is normal. There is mild plaque within the abdominal aorta and the branch vessels. No significant stenoses are identified. The celiac axis, superior mesenteric artery and inferior mesenteric artery are patent. The renal arteries are patent. No dissection within the abdominal aorta. There is no aneurysm within the abdomen. IMPRESSION: 1. Normal caliber abdominal aorta with mild plaque within the abdominal aorta and branch vessels. No significant stenosis. No abdominal aortic dissection. No aneurysm within the abdomen. 2. Hepatic steatosis. 3. Mild biliary ductal dilatation. This is likely related to cholecystectomy however could be correlated with liver function tests. ACT 112: Negative or not required by law. Electronically signed by: Ajit Young M.D. 03/05/2023 3:10 PM Chest CTA 03/05/23 12:40 CT ANGIOGRAM OF THE CHEST CLINICAL HISTORY: Atypical chest pain. COMPARISON STUDY: Chest CT dated 01/25/2023. TECHNIQUE: Following the IV administration of 114 cc of Optiray 350, CT angiogram of the chest was performed from the thoracic inlet to the upper abdomen utilizing the dissection protocol. Images are reviewed in the axial, sagittal, and coronal planes. 3-D MIPS images are created and assessed. IV contrast was administered without complication. A dose lowering technique was utilized adhering to the principles of ALARA. FINDINGS: Thyroid: Imaged portions of the thyroid gland are normal in size and attenuation. Thoracic aorta: There is moderate atherosclerotic calcification of the thoracic aorta, which is normal in caliber and demonstrates standard 3-vessel arch anatomy. No dissection is seen. The arch vessels are widely patent. Pulmonary vasculature: The pulmonary trunk is dilated, measuring 4.0 cm in diameter. This suggests pulmonary artery hypertension. There are no filling defects identified in the main, lobar, or segmental pulmonary arteries to suggest pulmonary embolus. Heart: The heart is mildly enlarged and without pericardial effusion. The mitral annulus is densely calcified. Lungs and pleural spaces: Subpleural reticulation is seen throughout both lungs and there are foci of parenchymal scarring. There is no airspace consolidation typical for pneumonia. The trachea and central airways are clear. There are trace pleural effusions with dependent atelectasis. Mediastinum: There is no mediastinal lymphadenopathy. Skylar: Clear. Axillae: There is no axillary lymphadenopathy. Upper abdomen: The esophagus is distended and patulous, and contains fluid to the level of the pulmonary trunk. There is a moderate to large hiatal hernia, with postsurgical changes from Tayler-en-Y gastric bypass surgery. Partially visua lized upper abdominal viscera is otherwise grossly unremarkable. Skeletal structures: The skeletal structures are osteopenic. Degenerative change and mild hyperkyphosis is noted in the thoracic spine. No lytic or blastic bony lesions are seen. There are numerous chronic/healed bilateral rib fractures. IMPRESSION: 1. Unremarkable CT angiogram of thoracic aorta. No change from 01/25/2023. 2. There is no evidence of pulmonary embolus in the main, lobar, or segmental pulmonary arteries. 3. Cardiomegaly with evidence of pulmonary artery hypertension. 4. Trace pleural effusions. 5. Moderate to large hiatal hernia. The esophagus is distended and patulous, and contains fluid to the level of the pulmonary trunk. Note that this may place the patient at risk for aspiration. 6. There is no airspace consolidation typical for pneumonia. 7. Additional findings as above. ACT 112: Negative or not required by law. Electronically signed by: Sanjiv Lemus M.D. 03/05/2023 4:38 PM Barium Swallow X-Ray 03/06/23 11:00 [place] barium swallow CLINICAL HISTORY: Dysphagia. Assess for esophageal dysfunction. COMPARISON STUDY: CTA of the chest March 05, 2023. FLUOROSCOPY TIME: 1.09 minutes FLUOROSCOPY IMAGES: 19 Ka,r: 27.3 mGy FINDINGS: There are postoperative findings consistent with Tayler-en-Y gastric bypass. A moderate sized hiatal hernia is present. Moderate esophageal dysmotility is noted. No esophageal mass or stricture is identified. Caliber of the opacified jejunum was normal. The esophagus is mildly dilated. IMPRESSION: 1. Moderate esophageal dysmotility. Mild esophageal dilatation. 2. Status post Tayler-en-Y gastric bypass. Moderate sized hiatal hernia. ACT 112: Negative or not required by law. Electronically signed by: Ajit Young M.D. 03/06/2023 12:00 PM Hospital Course (1) Chest pain: 67 year old female w/ PmHx alcoholism, chronic anemia, dysphagia, hypertension, hiatal hernia, gastric bypass, sacroiliitis admitted for hypotension and poor nutrition. Abnormal Pain secondary to Esophageal dysmobility/GERD - CTA without signs of acute bleeding or aortic dissection, showed dilation of esophagus, concern for stricture - Was taking PPI as needed prior to admission - EGD in 01/31 with esophageal ulcer, esophageal stenosis - GI consulted and plan for repeat EGD in 2 months - significant improvement with PPI BID, famotidine BID IV, Carafate; plan to continue regimen as an outpatient Chest pain: -New onset chest pain over past week along with poor nutrition. -EKG NSR without any acute ST changes. -Troponin 7.4, lactate 2.8 -> 1.8. -CXR without any acute processes. -TTE without significant change -Pain completely resolved with acid suppressive medications as per above, did state that with pain it was sometimes worse with exertion- would consider further work-up with stress test in the future in reoccurrence of chest pain with exertion Normocytic Anemia - hemoglobin 9.6 on admission, dropped to 7.5 and has been stable there. Hgb 7.9 upon discharge - B12 and folate wnl, iron studies consistent with anemia of chronic disease - concern for GI bleed given history of PUD/GERD, fortunately hgb has not dropped further since 03/05 - plan to continue iron, thiamine and folate supplementation upon d/c - F/u CBC at PCP appointment this week Hypotension: -Patient hypotensive in the ED to 60's/40's. - Likely secondary to hypovolemia in the setting of poor PO intake and GI bleeding - Stabilized after receiving IVF. Normotensive since 03/05 Alcohol Abuse - AWSS protocol- did not require any doses of Ativan, no signs of acute withdrawal throughout hospitalization - continue folate, B12 supplementation - Patient inquires about starting IM Naltrexone while admitted. - Agreeable to stopping tramadol. - Plan to start PO naltrexone, with plan to start IM naltrexone as an outpatient Poor nutrition/hypomagnesemia/hyponatremia: - History of poor nutrition, alcohol intake. - Patient's alcohol level negative on admission. - Hyponatremia, hypomagnesemia resolved - Likely related to poor nutrition. - Healthcare Social Worker recommended to utilize Meals on Wheels and to integrate delivery to the home. Patient was made aware this is based on income and is comfortable with that. - Appetite has significantly improved with resolution of abdominal pain Dysphagia - Barium swallow study showed moderate esophageal dysmotility. Mild esophageal dilatation. Status post Tayler-en-Y gastric bypass. Moderate sized hiatal hernia. - Speech Evaluation recommend: - Regular diet, avoid dry, thick, pasty, doughy foods. Add condiments to keep moist - Aspiration/Reflux precautions - For poor motility GI recommending use of gravity/liquids to get food down HTN - hold HCTZ, lisinopril given hypotension - Hypotension secondary to hypovolemia; has been normotensive since 03/05 - On a low dose of lisinopril and HCTZ prn for edema - Plan to hold until f/u appointment with PCP Insomnia - continue Seroquel qHS - consider possible sleep study in the outpatient setting once patient is discharge for PHILIP rule-out Depression - continue sertraline - consult behavioral liaison per pt request; provided with outpatient resources Disposition: Plan for discharge home. Daughter lives locally. Insurance denied acute rehab/SNF. Patient declined home health/PT. Could consider outpatient PT if patient is agreeable. (2) Poor nutrition: (3) Hypomagnesemia: (4) Hyponatremia: (5) GERD (gastroesophageal reflux disease): (6) Esophageal dysmotility: Total Time Total Time Spent Total Time Spent (In Minutes): 35 min Total Time Includes: Examination of the Patient, Discharge Planning and Other Discharge Plan Discharge Items Patient Disposition: Home - Home Health Services Reason For Visit: CHEST PAIN, HYPOTENSION Discharge Diagnosis: Anemia Activity: Per Instructions section Non-emergency contact: Primary Care Provider Call non-emergency contact if: you have any medication questions and your symptoms worsen Follow-up/Referrals: Emily Diehl PA-C [Primary Care Provider] - Ehsan Mayes Jr, MD [Physician] - Diet: Regular Addtl Attending Provider Instructions: You were admitted with chest/abdominal pain which we think was likely secondary to peptic ulcer disease. Your hemoglobin was also pretty low, but has been stabl e since you have been here. We started you on a number of different medications. New Medications: Medications for Anemia - Folate- once daily - Iron- once daily - Thiamine - once daily Medications for Esophageal Ulcer - famotidine- twice a day - pantoprazole- twice a day - sucralfate prior to meals We also started you on naltrexone, which is used to help with alcohol dependence. It is important that you do not take the naltrexone with tramadol. Because your blood pressure was pretty low, we have been holding your hydrochlorothiazide and lisinopril. You should hold off on restarting these medications until your follow-up appointment with your primary care doctor. We would like you to follow-up with your primary care doctor this week. The office should reach out to you about scheduling, you can also give the office a call to set up an appointment. Pending Studies at Discharge: No Stand-Alone Forms: My [facility] Medications and DC Order Prescriptions: New ferrous gluconate 324 mg (38 mg iron) Tablet 324 mg PO QAM 30 Days Qty: 30 0RF sucralfate 100 mg/mL Suspension 1 g PO ACHS 30 Days Qty: 300 0RF naltrexone 50 mg Tablet 50 mg PO DAILY 30 Days Qty: 30 0RF famotidine 20 mg Tablet 20 mg PO BID 30 Days Qty: 60 0RF pantoprazole 40 mg Tablet,Delayed Release (Dr/Ec) 40 mg PO BID 30 Days Qty: 60 0RF folic acid 1 mg Tablet 1 mg PO QAM 30 Days Qty: 30 0RF thiamine HCl (vitamin B1) 100 mg Tablet 100 mg PO QAM 30 Days Qty: 30 0RF Continued quetiapine 100 mg tablet 100 mg PO HS hydroxyzine pamoate 100 mg Capsule 100 mg PO HS sertraline [Zoloft] 100 mg Tablet 100 mg PO HS Held lisinopril 10 mg Tablet 10 mg PO HS Hold Instructions: Until PCP follow up hydrochlorothiazide 25 mg tablet 25 mg PO QAM PRN (Reason: Edema) Hold Instructions: Until PCP follow up Discontinued pantoprazole 40 mg tablet,delayed release (DR/EC) 40 mg PO QPM tramadol 50 mg tablet 50 mg PO Q6H PRN (Reason: Pain) famotidine 20 mg tablet 20 mg PO HS Discharge Orders: Discharge Order (Routine); Ordered 03/10/23 Ordered By: Yas De La O/Other Patient Handouts: 5 Steps for Eating Healthier Admission Data Admit Date/Time: 03/04/23 23:07 Attending Provider: Diya Sandra Admit Provider: Josh Mcintyre Primary Care Provider: Emily Diehl Other Providers: [facility] ; Ehsan Mayes Jr ; Brandon Hansen ; Rm Evans ; Dante Matson ; Jeanine Love ; Xuan Chery ; Leighann Vasquez ; Diana Arthur ; Cortez Escobar ; Robert Germain ; Shannan Hamilton ; Shahid Flower ; Nathan Laws ; Jennifer Rondon ; Trisha Hooker ; Ny Whittaker ; Josephine Martel ; Enid Singh ; Boris Llanos ; Home Carvajal ; Aniyah Mathews ; George Snyder Other Interventions: Discharge Summary Assessment (RN) Last Done: 03/10/23 15:03 Supervising Physician Co-Signing Physician Notes I personally examined the patient and verified galo points of history and exam, discussed case, and agree with decision making and plan documented by Dr. Chen. Patient interested in IM naltrexone, this is not available inpatient, will work outpatient to get her established for injections, patient has had benefit with this in the past. Patient with limited use of tramadol, she understands that she cannot take tramadol with naltrexone therapy. For the interim, recommended patient's start oral naltrexone therapy, we discussed the importance of engaging in the recovery community and attending meetings, patient has a support of her daughter which is helpful. Patient understanding of importance of maintaining medication treatment for esophageal ulcer, she has f/u with GI scheduled, and will have a repeat EGD in the future. Resident Activity Tracking Resident Involvement: Resident Care Provided Care Provided: Adult Hospital Medicine
== END 2023-03-10 17:22 | disposition home or self-care (01) | DRG 392 ==
LOC: ED 20:09 → SUATTDRO 23:07 → EDINP 23:07 → 2E 03-05 05:01 → 3N 03-07 20:56

== ENCOUNTER 2023-07-21 12:30 | Inpatient (IN) ==
[2023-07-21] MEDS ORDERED: ONDANSETRON INJ 2 MG/ML 2 ML VIAL IV STA ×2 (13:12→17:44)
[2023-07-21] MEDS ORDERED: SODIUM CHLORIDE 0.9% 1,000 ML IV SCH (13:15)
--- NOTE | 2023-07-21 13:19 | Emergency Department Note ---
Impression & Plan Hypotension, Syncope, Vomiting and diarrhea, MURALI (acute kidney injury), Anemia, History of gastric bypass ED Provider Note NAME: SANDHYA HALL AGE: 67 SEX: F : 1955 ARRIVES VIA: Ambulance INFORMANT: [Patient] ED PROVIDER(S): [Sanjiv Carreon MD] CHIEF COMPLAINT: Vomiting diarrhea, syncope HISTORY OF PRESENT ILLNESS: The patient is a 67-year-old female with a history of gastric bypass. She presents to the ER with 3 or 4 days of symptoms. She has had some diffuse abdominal pain that she describes as colicky. The pain now seems to be mostly in the lower abdomen. She has had dry heaves and nausea. She denies blood in the stool or vomit. She has not had fever. Patient states that she has noticed a slightly productive cough but she has not had any shortness of breath. No bad food eaten or sick contacts. This morning, a few hours ago, she passed out while sitting on the toilet, she did not suffer any injuries. Of note, in triage the patient's blood pressure was low at 70 over palp. PMHx/PSHx/Social Hx: See Below PHYSICAL EXAM: GENERAL: Patient is in no acute distress. HEENT: No acute trauma, normocephalic atraumatic, mucous membranes dry, no nasal congestion. NECK: No stridor, no adenopathy, no meningismus, trachea is midline. LUNGS: Clear to auscultation bilaterally, no wheeze, no rhonchi, breath sounds equal. HEART: 2/6 systolic murmur, regular rate and rhythm. ABDOMEN: Soft, mildly diffusely tender, no distention, no peritonitis. EXTREMITIES: No cyanosis, full range of motion of all the joints without pain or difficulty. NEUROLOGIC: Oriented x 3, no acute motor or sensory deficits, no focal weakness. SKIN: No jaundice, no diaphoresis. DIFFERENTIAL DIAGNOSIS: Foodborne or viral illness, gastritis or colitis, diverticulitis, appendicitis, UTI, dehydration, electrolyte imbalance, anemia, dysrhythmia, among others. EMERGENCY DEPARTMENT PROCEDURES: MEDICAL DECISION MAKING: There is no leukocytosis. The patient is anemic however, she carries a history of anemia. There is a normal platelet count. There is some mild acute kidney injury with a creatinine of 1.58. There is an anion gap of 17, likely from dehydration. Sodium somewhat low at 132. There were some subtle liver enzyme elevations, likely from vomiting and dehydration. Lactic acid level was not elevated making severe sepsis less likely. Patient appeared to be in a euthyroid state. ECG showed a normal sinus rhythm, no obvious ischemia. Cardiac enzyme testing x 1 is not consistent with acute cardiac injury. COVID, influenza and RSV test were negative. Stool bio fire is currently pending. Urinalysis results are pending. Abdominal and pelvis CT imaging does not show diverticulitis or colitis. No bowel obstruction or acute surgical process. Patient had presented with a syncopal episode. She was hypotensive on arrival, blood pressure was 70s systolic initially. The patient was given IV hydration, 1 L of saline, 1 L of lactated Ringer's. She received IV Zofran. Her blood pressure has improved. Patient does feel better than when she arrived. I do think she requires further hydration and care. Hospitalization is indicated given her hypotension and acute kidney injury. I spoke with the patient and case management, the on-call hospitalist was consulted. The cause for the vomiting and diarrhea is unclear currently. I do think the vomiting and diarrhea led to dehydration which then in turn led to her syncope. Prior/Outside records/notes reviewed: Discharge note from 03/10/2023 discussing her presentation for chest pain, anemia and alcohol abuse. ECG per my interpretation: Indication was syncope. The ECG shows a normal sinus rhythm with a rate of 94. There is LVH present. There is no acute ST elevation, no PVCs. The QTc is 452. Continuous Cardiac Monitoring per my interpretation: An order was placed for continuous cardiac monitoring. The monitor shows a rate of 95 with normal sinus rhythm. Imaging/x-ray results per my interpretation: Chest x-ray did not show mediastinal widening, pneumonia or pneumothorax. Chronic Medical/Social conditions affecting care: History of alcohol abuse. Care/Management discussed with: Case management, the on-call hospitalist. Level of care consideration(s): After review of the information above and other included data: --I believe the patient requires escalation of care to admission Critical Care Note: I have personally spent 47 minutes of critical care time in the direct management of this patient. This includes bedside care, interpretation of diagnostic studies, and testing, discussion with consultants, patient, and family members, and other required patient management activities. This 47 minutes is in excess of all separately billable procedures. DISPOSITION: Admission Past Med/Surg History Medical History Hyponatremia Chest pain Chronic diarrhea Anemia Depression Syncope Acute dehydration Abnormal LFTs Hypoglycemia Vitamin D deficiency Alcohol use disorder Diarrhea Sepsis Hypomagnesemia Cholelithiasis Surgical History H/O: hysterectomy History of section History of cholecystectomy History of colonoscopy History of esophagogastroduodenoscopy (EGD) History of open reduction and internal fixation (ORIF) procedure right wrist--hardware in place History of total left hip replacement History of wisdom tooth extraction Family History Other No family history of adverse response to anesthesia Social History Smoking Status: Never smoker Second Hand Exposure: No; Do You Dip or Chew Tobacco: No; Hx Alcohol Use: Yes Alcohol type: hard liquor Hx Substance Use: No Preferred Language: Uzbek Communication Ability: Effective Citizenship Teacher Required: No Beliefs That Will Affect Care: None Current Living Situation: Alone Feels Safe at Home: Yes Assistive Devices: Cane and Walker Allergies Allergies Allergy/AdvReac Type Severity Reaction Status Date / Time No Known Allergies Allergy Verified 03/04/23 22:17 Home Meds Home Medications Medication Instructions Recorded Confirmed quetiapine 100 mg tablet 100 mg PO HS 10/22/22 04/26/23 hydrochlorothiazide 25 mg tablet 25 mg PO QAM PRN Edema 01/07/23 04/26/23 hydroxyzine pamoate 100 mg capsule 100 mg PO HS 01/07/23 04/26/23 sertraline 100 mg tablet (Zoloft) 100 mg PO HS 01/07/23 04/26/23 lisinopril 10 mg tablet 20 mg PO HS 01/31/23 04/26/23 alendronate 70 mg tablet 70 mg PO Q7D 04/26/23 04/26/23 famotidine 20 mg tablet 20 mg PO DAILY 04/26/23 04/26/23 ferrous gluconate 324 mg (38 mg 324 mg PO BID 04/26/23 04/26/23 iron) tablet folic acid 1 mg tablet 1 mg PO DAILY 04/26/23 04/26/23 hydroxyzine pamoate 50 mg capsule 50 mg PO HS 04/26/23 04/26/23 naltrexone 50 mg tablet 50 mg PO DAILY 04/26/23 04/26/23 pantoprazole 40 mg tablet,delayed 40 mg PO DAILY 04/26/23 04/26/23 release thiamine HCl (vitamin B1) 100 mg 100 mg PO DAILY 04/26/23 04/26/23 tablet Previous Rx's Medication Instructions Recorded ondansetron 4 mg disintegrating 4 mg PO Q6H PRN nausea and 04/26/23 tablet vomiting #14 tabs sucralfate 100 mg/mL oral 10 ml PO QID #420 mL 04/26/23 suspension (Carafate) Results & Data (ED) Vital Signs Vital Signs - 24 hr 07/21/23 12:40 07/21/23 12:53 07/21/23 15:15 Temperature 36.2 C L Temperature Source Temporal Artery Scan Pulse Rate 103 H 95 H Pulse Rate [Apical] 84 Respiratory Rate 18 14 Respiratory Effort / Characteristics Non-Labored Spontaneous Respiratory Depth Normal Respiratory Pattern Regular Blood Pressure 72/59 L Blood Pressure [Right Arm] 101/73 Blood Pressure Mean 63 Blood Pressure Mean [Right Arm] 82 Pulse Oximetry 96 98 Oxygen Delivery Method Room Air Room Air Sepsis Recent Fever Within 48 Hours No Sepsis New/Unexplained Change in Mental Status N/A Sepsis Action Taken by Nursing No Action Required 07/21/23 15:15 Temperature Temperature Source Pulse Rate 84 Pulse Rate [Apical] Respiratory Rate 14 Respiratory Effort / Characteristics Respiratory Depth Respiratory Pattern Blood Pressure Blood Pressure [Right Arm] Blood Pressure Mean Blood Pressure Mean [Right Arm] Pulse Oximetry 98 Oxygen Delivery Method Room Air Sepsis Recent Fever Within 48 Hours Sepsis New/Unexplained Change in Mental Status Sepsis Action Taken by Correction Medications Current Medication List: was personally reviewed by me Laboratory Data Attestation: I reviewed the patient's lab results. 07/21/23 14:57 07/21/23 14:57 Lab Results 07/21/23 07/21/23 Range/Units 13:23 14:57 WBC 8.90 (4.8-10.8) K/ul RBC 3.38 L (4.20-5.40) M/uL Hgb 10.3 L (12.0-16.0) g/dl Hct 29.6 L (37.0-47.0) % MCV 87.6 (80.0-100.0) fL MCH 30.5 (25.0-34.0) pg MCHC 34.8 (32.0-36.0) g/dL RDW Std Deviation 46.1 (36.4-46.3) fL RDW Coeff of Cate 14.4 (11.5-14.5) % Plt Count 133 (130-400) K/uL MPV 10.3 (9.4-12.4) fL Immature Gran % (Auto) 0.7 % Neut % (Auto) 81.0 % Lymph % (Auto) 6.1 % [place] % (Auto) 12.0 % Eos % (Auto) 0.0 % Baso % (Auto) 0.2 % Neut # (Auto) 7.21 H (1.40-6.50) K/uL Lymph # (Auto) 0.54 L (1.20-3.40) K/uL [place] # (Auto) 1.07 H (0.11-0.59) K/uL Eos # (Auto) 0.00 (0.00-0.50) K/uL Baso # (Auto) 0.02 (0.00-0.20) K/uL Immature Gran # (Auto) 0.06 (0.01-0.20) K/uL Sodium 132 L (136-145) mmol/L Potassium 4.9 (3.5-5.1) mmol/L Chloride 92 L (98-107) mmol/L Carbon Dioxide 23 (21-32) mmol/L Anion Gap 17 H (3-11) BUN 41 H (6-23) mg/dl Creatinine 1.58 H (0.6-1.2) mg/dl Est Cr Clr Drug Dosing 29.8 ml/min Est GFR ( Amer) 38.8 ml/min Est GFR (Non-Af Amer) 33.5 ml/min BUN/Creatinine Ratio 25.9 H (10-20) Glucose 90 (70-99(Fasting)) mg/dl Lactate 0.9 (0.4-2.0) mmol/L Calcium 8.8 (8.6-10.3) mg/dl Magnesium 1.9 (1.7-2.4) mg/dl Total Bilirubin 1.1 H (0.2-1.0) mg/dl AST 44 H (13-39) U/L ALT 23 (7-52) U/L Alkaline Phosphatase 84 (34-104) U/L Troponin I High Sens 8.7 (0-14) pg/ml Total Protein 6.2 (6.0-8.3) gm/dl Albumin 3.5 (3.4-5.0) gm/dl Globulin 2.7 (2.5-4.0) gm/dl Albumin/Globulin Ratio 1.3 (0.9-2) TSH 1.745 (0.300-4.500) uIu/ml SARS-CoV-2 (PCR) NEGATIVE (Negative) Influenza Type A (PCR) Negative (Neg) Influenza Type B (PCR) Negative (Neg) RSV (RT-PCR) Negative (Neg) Administered Medications Discontinued Medications Sodium Chloride (Nss) 1,000 mls @ 999 mls/hr IV .Q1H1M BARBARA Stop: 07/21/23 14:15 Last Infusion: 07/21/23 15:29 Dose: Infused Documented By: Admin: 07/21/23 14:09 Dose: 999 mls/hr Documented By: CONCHA Lactated Ringer's (Lr) 1,000 mls @ 999 mls/hr IV .Q1H1M ONE Stop: 07/21/23 15:43 Last Admin: 07/21/23 15:29 Dose: 999 mls/hr Documented By: AARON Ioversol (Optiray 320 500ml) 77 ml IV ONCE ONE Stop: 07/21/23 15:59 Last Admin: 07/21/23 15:59 Dose: 77 ml Documented By: NICKY Ondansetron HCl (Ondansetron Inj 2 Mg/Ml 2 Ml Vial) 4 mg IV NOW STA Stop: 07/21/23 13:13 Last Admin: 07/21/23 14:09 Dose: 4 mg Documented By: CONCHA Imaging Data Radiologist's Impression: Abdomen/Pelvis CT 07/21/23 13:12 CT abd pelvis IV con only CLINICAL HISTORY: lower abd pain, vomiting, hypotension TECHNIQUE: Helical axial images of the abdomen and pelvis were obtained and displayed. Automated dose lowering techniques and/or adjustment according to patient size were utilized for this exam. This exam was performed with intravenous contrast. CT DOSE: 761.08 mGy.cm COMPARISON: Comparison is made to CT abdomen pelvis 04/26/2023 FINDINGS: Lower chest: Performed interstitial thickening and bronchiectasis is seen. Okay Liver: Hepatic steatosis is noted. Gallbladder and biliary tree: Patient is status post cholecystectomy. Physiologic prominence of the biliary ducts is noted. Pancreas: Unremarkable, no focal lesions. Spleen: Unremarkable. Adrenals: Unremarkable. Kidneys and ureters: Unremarkable. Bladder: Unremarkable. Reproductive organs: Unremarkable. Bowel: Diverticulosis is seen without evidence of diverticulitis. Postsurgical changes of gastric bypass with a moderate hiatal hernia. Lymph nodes Retroperitoneal: Subcentimeter lymph nodes are noted. Pelvic: Unremarkable. Mesenteric: Unremarkable. Peritoneum: Normal. Vessels: Atherosclerotic calcifications are seen. Abdominal wall: Unremarkable. Bones: Degenerative changes in the visualized spine. Left hip arthroplasty and fixation changes of old pelvic fracture noted. IMPRESSION: 1. No acute abnormalities and in particular no evidence of bowel obstruction in this patient with nausea and vomiting. 2. Diverticulosis without diverticulitis. 3. Hepatic steatosis. 4. Moderate hiatal hernia. ACT 112: Negative or not required by law. Electronically signed by: Donaldo Pryor M.D. 07/21/2023 4:30 PM Chest X-Ray 07/21/23 13:13 XR chest 1V portable HISTORY: weakness COMPARISON: Chest 04/26/2023. FINDINGS: The lungs are clear. Cardiac silhouette is normal in size. No pleural effusions. No pneumothorax. Old, healed bilateral rib fractures again noted. There are calcifications within the aortic knob. IMPRESSION: No acute process. ACT 112: Negative or not required by law. Electronically signed by: Avelino Xie M.D. 07/21/2023 1:40 PM Discharge Plan Visit Data Chief Complaint: Vomiting Stated Complaint: WEAKNESS, NAUSEA, VOMITING, DIARRHEA ED Provider: Sanjiv Carreon Discharge Problem: Hypotension, Syncope, Vomiting and diarrhea, MURALI (acute kidney injury), Anemia, History of gastric bypass Patient Disposition: Admitted As Inpatient Condition: Fair Forms Stand Alone Forms: [facility] [employer]Twang Prescriptions Prescriptions: No Action lisinopril 10 mg Tablet 20 mg PO HS Hold Instructions: Until PCP follow up Rx Instructions: Patient states she takes 20mg by mouth daily but is currently on HOLD naltrexone 50 mg tablet 50 mg PO DAILY alendronate 70 mg tablet 70 mg PO Q7D Rx Instructions: Mondays thiamine HCl (vitamin B1) 100 mg tablet 100 mg PO DAILY famotidine 20 mg tablet 20 mg PO DAILY pantoprazole 40 mg tablet,delayed release (DR/EC) 40 mg PO DAILY folic acid 1 mg tablet 1 mg PO DAILY ferrous gluconate 324 mg (38 mg iron) tablet 324 mg PO BID hydroxyzine pamoate 50 mg Capsule 50 mg PO HS Rx Instructions: Patient states she takes 50mg along with Hydroxyzine 100mg every night at bedtime sucralfate [Carafate] 100 mg/mL suspension 10 ml PO QID Qty: 420 0RF Rx Instructions: swish in mouth and swallow; use after food/drink: May substitute tablets as a slurry. ondansetron 4 mg tablet,disintegrating 4 mg PO Q6H PRN (Reason: nausea and vomiting) Qty: 14 0RF quetiapine 100 mg tablet 100 mg PO HS hydroxyzine pamoate 100 mg Capsule 100 mg PO HS Rx Instructions: Patient states she takes 100mg along with Hydroxyzine 50mg every night at bedtime sertraline [Zoloft] 100 mg Tablet 100 mg PO HS hydrochlorothiazide 25 mg tablet 25 mg PO QAM PRN (Reason: Edema) Hold Instructions: Until PCP follow up Referrals Referrals: Emily Diehl PA-C [Primary Care Provider] - Discharge Problem: Hypotension Qualifiers: Hypotension type: unspecified hypotension type Qualified Code(s): I95.9 - Hypotension, unspecified Syncope Qualifiers: Syncope type: unspecified Qualified Code(s): R55 - Syncope and collapse Anemia Qualifiers: Anemia type: unspecified type Qualified Code(s): D64.9 - Anemia, unspecified
--- NOTE | 2023-07-21 13:41 | XRay Report ---
XR chest 1V portable HISTORY: weakness COMPARISON: Chest 04/26/2023. FINDINGS: The lungs are clear. Cardiac silhouette is normal in size. No pleural effusions. No pneumot horax. Old, healed bilateral rib fractures again noted. There are calcifications within the aortic kn ob. IMPRESSION: No acute process. ACT 112: Negative or not required by law. Electronically signed by: Avelino Xie M.D. 07/21/2023 1:40 PM
[2023-07-21 14:19] LABS: Influenza A virus by PCR Negative (Neg); Influenza B virus by PCR Negative (Neg); RSV by PCR Negative (Neg); SARS CoV2 RNA(COVID-19) Ceph NEGATIVE (Negative)
[2023-07-21] MEDS ORDERED: LACTATED RINGER'S 1,000 ML IV ONE (14:43)
[2023-07-21 15:18] LABS: Basophils # (auto) 0.02 K/uL (0.00-0.20); Basophils % (auto) 0.2 %; Hematocrit (blood only) 29.6 % (37.0-47.0); Hemoglobin 10.3 g/dl (12.0-16.0); Immature Granulocytes # (auto) 0.06 K/uL (0.01-0.20); Immature Granulocytes % (auto) 0.7 %; Lymphocytes # (auto) 0.54 K/uL (1.20-3.40); Lymphocytes % (auto) 6.1 %; Mean Corpuscular Hemoglobin 30.5 pg (25.0-34.0); Mean Corpuscular Hgb Conc 34.8 g/dL (32.0-36.0); Mean Corpuscular Volume 87.6 fL (80.0-100.0); Mean Platelet Volume 10.3 fL (9.4-12.4); Monocytes # (auto) 1.07 K/uL (0.11-0.59); Neutrophils # (auto) 7.21 K/uL (1.40-6.50); Platelet Count 133 K/uL (130-400); RDW Coefficient of Variation 14.4 % (11.5-14.5); RDW Standard Deviation 46.1 fL (36.4-46.3); Red Blood Count 3.38 M/uL (4.20-5.40)
[2023-07-21 15:30] LABS: Albumin Globulin Ratio 1.3 (0.9-2); Albumin Level 3.5 gm/dl (3.4-5.0); BUN Creatinine Ratio 25.9 (10-20); Bilirubin,Total 1.1 mg/dl (0.2-1.0); Calcium 8.8 mg/dl (8.6-10.3); Creatinine Clr Calc Pharmacy 29.8 ml/min; Est GFR (African American) 38.8 ml/min; Est GFR (Non-African American) 33.5 ml/min; Globulin 2.7 gm/dl (2.5-4.0); Magnesium 1.9 mg/dl (1.7-2.4); Potassium 4.9 mmol/L (3.5-5.1); Total Protein 6.2 gm/dl (6.0-8.3)
[2023-07-21 15:34] LABS: Troponin I High Sensitivity 8.7 pg/ml (0-14)
[2023-07-21 15:44] LABS: Thyroid Stimulating Hormone 1.745 uIu/ml (0.300-4.500)
[2023-07-21] MEDS ORDERED: OPTIRAY 320 500ml IV ONE (15:58)
--- NOTE | 2023-07-21 16:32 | CT Scan Report ---
CT abd pelvis IV con only CLINICAL HISTORY: lower abd pain, vomiting, hypotension TECHNIQUE: Helical axial images of the abdomen and pelvis were obtained and displayed. Automated dose lowering techniques and/or adjustment according to patient size were utilized for this exam. This e xam was performed with intravenous contrast. CT DOSE: 761.08 mGy.cm COMPARISON: Comparison is made to CT abdomen pelvis 04/26/2023 FINDINGS: Lower chest: Performed interstitial thickening and bronchiectasis is seen. Okay Liver: Hepatic steatosis is noted. Gallbladder and biliary tree: Patient is status post cholecystectomy. Physiologic prominence of the b iliary ducts is noted. Pancreas: Unremarkable, no focal lesions. Spleen: Unremarkable. Adrenals: Unremarkable. Kidneys and ureters: Unremarkable. Bladder: Unremarkable. Reproductive organs: Unremarkable. Bowel: Diverticulosis is seen without evidence of diverticulitis. Postsurgical changes of gastric byp ass with a moderate hiatal hernia. Lymph nodes Retroperitoneal: Subcentimeter lymph nodes are noted. Pelvic: Unremarkable. Mesenteric: Unremarkable. Peritoneum: Normal. Vessels: Atherosclerotic calcifications are seen. Abdominal wall: Unremarkable. Bones: Degenerative changes in the visualized spine. Left hip arthroplasty and fixation changes of ol d pelvic fracture noted. IMPRESSION: 1. No acute abnormalities and in particular no evidence of bowel obstruction in this patient with na usea and vomiting. 2. Diverticulosis without diverticulitis. 3. Hepatic steatosis. 4. Moderate hiatal hernia. ACT 112: Negative or not required by law. Electronically signed by: Donaldo Pryor M.D. 07/21/2023 4:30 PM
--- NOTE | 2023-07-21 16:56 | History & Physical Report ---
Date of Service July 21, 2023 Assessment & Plan (1) Nausea and vomiting: Plan: Nausea/vomiting x 3 days Syncopal episode the morning of 07/21 on the toilet Hypotensive at 72/59 on arrival; likely secondary to GI losses and dehydration Abdomen/pelvic CT without acute abnormalities or evidence of bowel obstruction No leukocytosis; afebrile COVID, flu, RSV negative Lactate WNL Anion gap elevated at 17 Stool cultures ordered, pending Urine cultures ordered, pending Blood cultures ordered, pending Trial clear liquid diet and advance as tolerated Zofran as needed for nausea/vomiting; QTc 452 Acetaminophen as needed for pain/fever A.m. CBC, BMP (2) Syncope: Plan: On 07/21 (as above) EKG NSR at 94 bpm; QTc 452 Likely due to dehydration Continuous telemetry monitoring (3) GERD (gastroesophageal reflux disease): Plan: Converted Protonix 40 mg p.o. --> Protonix 40 mg IV BID Famotidine 20 mg IV QAM (4) MURALI (acute kidney injury): Plan: BUN 41, creatinine 1.58 (baseline 0.80), EGFR 33.5 Likely secondary to hypovolemia/GI losses, kidney hypoperfusion BUN/creatinine elevated at ratio 25.9 Avoid nephrotoxic agents Continue fluid resuscitation with LR at 80mL/hr x 2 Hold lisinopril (5) Hyponatremia: Plan: Mild hyponatremia at 132 Continue fluid resuscitation Monitor with daily BMPs (6) History of alcohol use: Plan: Hx of alcohol abuse and alcohol withdrawal; [facility] admission in October 2022 where she was reportedly drinking 8-10 rum drinks daily Patient reports she had a rum and coke last night on 07/20; she reports 3-4 drinks per week Ethyl alcohol level WNL Lipase WNL at 55 AWSS protocol as needed (7) History of gastric bypass: Plan: In 1999 (8) Depression: Plan: Continue hydroxyzine, sertraline, quetiapine (9) Acute dehydration: Plan: Fluid resuscitation (as above) Plan Disposition: Obs -admit to [facility] telemetry Full code Clear liquid diet and advance as tolerated VTE PPx: Heparin 5000 units SQ q12h History of Present Illness Chief Complaint: Vomiting Primary Care Provider: Emily Fazal Duran is a 67-year-old female with PMH of syncope, cholecystitis, s/p cholecystectomy, GERD, esophageal dysmotility, alcohol intoxication, and gastric bypass. She presented via EMS for nausea, vomiting, weakness, and a syncopal episode the morning of 07/21. N/V/D has been ongoing x 3 days. She also e ndorses intermittent epigastric pain, which she rates 2/10 at present. No radiation to the back. Patient reportedly fainted on the toilet this morning, but denies falling off the toilet. She reports that she rested her head on the side rail and passed out for 2-3 minutes. No head strike. She does not take any medications this morning, and reports she has not been able to keep her regular medications down for the past couple days. She last vomited at 1000 in the morning of 07/21. She has been tolerating water, but struggling with fluids and other solids. History of gastric bypass surgery in 1999. History of gallbladder removal in 2013. Patient reports that she was drinking alcohol last night; 1 drink; rum and coke; 34 drinks per week. She denies smoking, tobacco use, chewing tobacco, and recreational drug use. Patient's vitals are stable at time of admission. ED course: NSS 1000 mL IV Zofran 4 mg IV LR 1000 mL IV ROS: Patient endorses chills, body aches, fainting, dizziness, lightheadedness, productive cough, AKBAR, and epigastric pain. Patient denies fever, night sweats, rashes, hemoptysis, hematemesis, chest pain, chest palpitations, pleuritic CP, SOB at rest, urinary s/s, blood in the urine/stool, burning with urination, or numbness or tingling in legs or arms. Allergies Allergy/AdvReac Type Severity Reaction Status Date / Time No Known Allergies Allergy Verified 03/04/23 22:17 Home Medications Medication Instructions Recorded Confirmed Type quetiapine 100 mg tablet 50 mg PO HS 10/22/22 07/21/23 History hydrochlorothiazide 25 mg tablet 25 mg PO QAM PRN Edema 01/07/23 07/21/23 History hydroxyzine pamoate 100 mg capsule 100 mg PO HS 01/07/23 07/21/23 History sertraline 100 mg tablet (Zoloft) 100 mg PO HS 01/07/23 07/21/23 History lisinopril 10 mg tablet 20 mg PO HS 01/31/23 07/21/23 History alendronate 70 mg tablet 70 mg PO Q7D 04/26/23 07/21/23 History famotidine 20 mg tablet 20 mg PO DAILY 04/26/23 07/21/23 History ondansetron 4 mg disintegrating 4 mg PO Q6H PRN nausea and 04/26/23 07/21/23 Rx tablet vomiting #14 tabs pantoprazole 40 mg tablet,delayed 40 mg PO DAILY 04/26/23 07/21/23 History release thiamine HCl (vitamin B1) 100 mg 100 mg PO DAILY 04/26/23 07/21/23 History tablet vit no.95-ferrous 1 tab PO DAILY 07/21/23 07/21/23 History fumarate 28 mg-folic acid 800 mcg tablet () valacyclovir 1 gram tablet 0 mg PO DIRECTED PRN .. 07/21/23 07/21/23 History Past Med/Surg History Medical History (Updated 07/21/23 @ 18:12 by Avelino Wheatley PA-C) Acute dehydration History of alcohol use Alcohol use disorder Hyponatremia Chest pain Chronic diarrhea Anemia Depression Syncope Abnormal LFTs Hypoglycemia Vitamin D deficiency Diarrhea Sepsis Hypomagnesemia Cholelithiasis Surgical History (Updated 07/21/23 @ 16:48 by Sanjiv Carreon MD) History of section History of open reduction and internal fixation (ORIF) procedure right wrist--hardware in place History of total left hip replacement History of colonoscopy History of esophagogastroduodenoscopy (EGD) History of wisdom tooth extraction History of cholecystectomy H/O: hysterectomy Family History Other No family history of adverse response to anesthesia Social History Smoking Status: Former smoker Second Hand Exposure: No; Do You Dip or Chew Tobacco: No; Hx Alcohol Use: No Hx Substance Use: No Preferred Language: Croatian Communication Ability: Effective Four Horse Hitch Driver Required: No Beliefs That Will Affect Care: None Current Living Situation: Alone Feels Safe at Home: Yes Safety Concerns: Feels Safe At This Time Assistive Devices: None Review of Systems 2 Review of Systems: See HPI above Physical Exam Physical Exam: General: no acute distress; nausea; non-toxic appearing; well-nourished; cooperative HEENT: normocephalic, atraumatic; no scleral icterus; PERRLA w/ EOMs intact; moist mucus membrane; vision and hearing grossly intact Neck: supple; no lymphadenopathy; trachea midline Skin: warm, dry without signs of tenting; no cyanosis; no rashes, bruising, lesions, or erythema noted CV: chest wall NTP; RRR; S1/S2 normal; no murmurs/rubs/gallops; bounding pulses intact and symmetric at radial, DP, and PT Lungs: no acute respiratory distress; symmetrical chest wall expansion; clear breath sounds across all lung dotson w/o adventitious sounds; no wheezing ABD: Soft; LUQ TTP; RUQ, RLQ, LLQ NTP; negative McBurney's point tenderness; BS present; no rebound/guarding; no distention; negative CVA tenderness; no rashes or bruising on the abdomen or back MSK: no tics or fasciculations; no edema noted in the LEs b/l, nonerythematous; lower extremities TTP Neuro: A&Ox3; normal mood and affect; fluent speech; no focal deficits; sensation grossly intact in the LEs B/L Results & Data Results & Data Vital Signs (Past 12 Hours) Vital Signs Temp Pulse Pulse Resp BP BP Pulse Ox 07/21/23 15:15 84 14 98 07/21/23 15:15 84 14 101/73 98 07/21/23 12:53 95 H 07/21/23 12:40 36.2 C L 103 H 18 72/59 L 96 O2 Del Method 07/21/23 15:15 Room Air 07/21/23 15:15 Room Air 07/21/23 12:53 07/21/23 12:40 Room Air Laboratory Results Abnormal lab results 07/21/23 Range/Units 14:57 RBC 3.38 L (4.20-5.40) M/uL Hgb 10.3 L (12.0-16.0) g/dl Hct 29.6 L (37.0-47.0) % Neut # (Auto) 7.21 H (1.40-6.50) K/uL Lymph # (Auto) 0.54 L (1.20-3.40) K/uL Owsley # (Auto) 1.07 H (0.11-0.59) K/uL Sodium 132 L (136-145) mmol/L Chloride 92 L (98-107) mmol/L Anion Gap 17 H (3-11) BUN 41 H (6-23) mg/dl Creatinine 1.58 H (0.6-1.2) mg/dl BUN/Creatinine Ratio 25.9 H (10-20) Total Bilirubin 1.1 H (0.2-1.0) mg/dl AST 44 H (13-39) U/L Diagnostic Findings Abdomen/Pelvis CT 07/21/23 13:12 CT abd pelvis IV con only CLINICAL HISTORY: lower abd pain, vomiting, hypotension TECHNIQUE: Helical axial images of the abdomen and pelvis were obtained and displayed. Automated dose lowering techniques and/or adjustment according to patient size were utilized for this exam. This exam was performed with intravenous contrast. CT DOSE: 761.08 mGy.cm COMPARISON: Comparison is made to CT abdomen pelvis 04/26/2023 FINDINGS: Lower chest: Performed interstitial thickening and bronchiectasis is seen. Okay Liver: Hepatic steatosis is noted. Gallbladder and biliary tree: Patient is status post cholecystectomy. Physiologic prominence of the biliary ducts is noted. Pancreas: Unremarkable, no focal lesions. Spleen: Unremarkable. Adrenals: Unremarkable. Kidneys and ureters: Unremarkable. Bladder: Unremarkable. Reproductive organs: Unremarkable. Bowel: Diverticulosis is seen without evidence of diverticulitis. Postsurgical changes of gastric bypass with a moderate hiatal hernia. Lymph nodes Retroperitoneal: Subcentimeter lymph nodes are noted. Pelvic: Unremarkable. Mesenteric: Unremarkable. Peritoneum: Normal. Vessels: Atherosclerotic calcifications are seen. Abdominal wall: Unremarkable. Bones: Degenerative changes in the visualized spine. Left hip arthroplasty and fixation changes of old pelvic fracture noted. IMPRESSION: 1. No acute abnormalities and in particular no evidence of bowel obstruction in this patient with nausea and vomiting. 2. Diverticulosis without diverticulitis. 3. Hepatic steatosis. 4. Moderate hiatal hernia. ACT 112: Negative or not required by law. Electronically signed by: Donaldo Pryor M.D. 07/21/2023 4:30 PM Chest X-Ray 07/21/23 13:13 XR chest 1V portable HISTORY: weakness COMPARISON: Chest 04/26/2023. FINDINGS: The lungs are clear. Cardiac silhouette is normal in size. No pleural effusions. No pneumothorax. Old, healed bilateral rib fractures again noted. There are calcifications within the aortic knob. IMPRESSION: No acute process. ACT 112: Negative or not required by law. Electronically signed by: Avelino Xie M.D. 07/21/2023 1:40 PM Code Status & VTE Plan Code Status Full code VTE Prophylaxis Plan VTE Prophylaxis will be ordered: Yes Supervising Physician Co-Signing Physician Notes I personally saw and examined the patient. I independently reviewed the labs, EKG, imaging, problem list, medication list, past medical history and family history. I verified all galo points and agree with Avelino Wheatley PA-C with the following exceptions and/or additions: 67-year-old female presents to the ER with nausea, vomiting, diarrhea for 1 day. Epigastric abdominal pain over the same period. Multiple previous episodes associated with alcohol intoxication. She reports reducing her alcohol content significantly over the last few months. Similar episode in the past related to alcohol in October 2021. O/E A&Ox3, dry mucus membranes, HS increased rate, regular rhythm, systolic murmur loudest in apex, Chest CTAB, Abdo epigastric tenderness without guarding or rebound tenderness, no pedal edema A/P Epigastric pain, nausea, vomiting, diarrhea - ? Alcohol intoxication - current level negative. Lipase normal. CT abdomen pelvis with no acute findings. Stool culture PCR pending. Urinalysis pending. Start pantoprazole 40 mg IV BID and famotidine 20mg IV daily for possible gastritis. Low suspicion of withdrawal. Stool PCR pending. PG Care Time/CCT Total # of Minutes Spent Total Time Spent with Patient: Total time spent is greater than 50% in coordination of care (as documented) at patient's floor/unit and/or counseling patient: [place] [address] INT INP/OBS CARE 2/55MIN Patient Type Established Medical Decision Making Moderate Complexity Diagnoses Nausea and vomiting R11.2 Syncope R55 Syncope type: unspecified GERD (gastroesophageal reflux disease) K21.9 MURALI (acute kidney injury) N17.9 Hyponatremia E87.1 History of alcohol use Z87.898 History of gastric bypass Z98.84 Depression F32.A Acute dehydration E86.0 (2) Syncope Syncope type: unspecified Qualified Code(s): R55 - Syncope and collapse
--- OUTSIDE RECORDS SUMMARY | 2023-07-21 18:16 | External Medical Summary | Continuity of Care Document ---
Author Name Unknown Organization [id number] Address [address] [place] [phone] Care Team Providers Care Spinning Bath Patroller Name Role Phone Emily Diehl Primary Care Physician [phone] Encounter [facility] [id number] Date(s): 06/17/23 - 06/17/23 [facility] [address] [place] [id number] [address] [place], [place] [id number] Encounter Diagnosis Facet arthropathy, lumbar(Discharge Diagnosis) - 06/10/23 Facet arthropathy, lumbar(Discharge Diagnosis) - 06/16/23 Discharge Disposition: Home or Self Care Attending Physician: MD Vlad, Damian Silva Allergies, Adverse Reactions, Alerts No Known Allergies Immunizations Given and Recorded Vaccine Date Status Refusal Reason SARS COVID Vaccine Unspecified 04/14/23 Recorded SARS COVID Vaccine Unspecified 04/05/22 Recorded SARS COVID Vaccine Unspecified 05/03/21 Recorded RSV Vaccine Unspecified 04/02/23 Recorded influenza virus vaccine, inactivated 04/02/23 Sy rded influenza virus vaccine, inactivated 04/05/22 Sy rded influenza virus vaccine, inactivated 06/01/18 Sy rded (DTAP) Vaccine Unspecified 04/12/22 Recorded pneumococcal 23-valent vaccine 06/01/18 Recorded Medications alendronate 70 mg oral tablet Start: 06/09/23 16:02:00 EST, 12 each, TAKE 1 TABLET BY MOUTH EVERY 7 DAYS FOR 84 DAYS Start Date: 06/09/23 Status: Ordered cholecalciferol 25 mcg (1000 intl units) oral capsule Start: 06/09/23 16:02:00 EST, 3000 Unknown, Unknown Start Date: 06/09/23 Status: Ordered ferrous gluconate 324 mg (38 mg elemental iron) oral tablet Start: 06/09/23 16:02:00 EST, 30 each, TAKE 1 TABLET BY MOUTH EVERY DAY IN THE MORNING FOR 30 DAYS Start Date: 06/09/23 Status: Ordered folic acid 1 mg oral tablet Start: 06/09/23 16:02:00 EST, 30 each, TAKE 1 TABLET BY MOUTH DAILY IN THE MORNING Start Date: 06/09/23 Status: Ordered hydrOXYzine pamoate 100 mg oral capsule Start: 06/09/23 16:04:00 EST, 30 each, TAKE 1 CAPSULE BY MOUTH AT BEDTIME Start Date: 06/09/23 Status: Ordered ondansetron 4 mg oral tablet, disintegrating Start: 11/12/22 15:03:00 EDT Start Date: 11/12/22 Status: Ordered QUEtiapine 100 mg oral tablet Start: 04/28/23 11:57:00 EDT, 1 tab, PO, qhs, Disp# 30 tab, Refills: 5, Pharmacy: [facility]/pharmacy #[id number] Start Date: 04/28/23 Status: Ordered sertraline 100 mg oral tablet Start: 06/18/23 8:16:00 EST, 1 tab, PO, qhs, Disp# 30 tab, Refills: 11, Pharmacy: [facility]/pharmacy #[id number] Start Date: 06/18/23 Stop Date: 06/12/24 Status: Ordered thiamine Start: 06/09/23 16:03:00 EST, 200 Unknown, Unknown Start Date: 06/09/23 Status: Ordered Valtrex Start: 01/16/23 9:14:00 EDT, as needed for cold sores Start Date: 01/16/23 Status: Ordered Mental Status 06/17/23 Barriers to Learning one year None evide nt Mandatory Health Literacy Documentation Yes Health Literacy Communication Barriers N ever Primary Language Spanish Problem List Condition Confirmation Course Effective Dates Status Health St atus Informant Alcoholism Confirmed Active Facet arthropathy, lumbar Confirmed Active Tinnitus of both ears Confirmed Active Body mass index [BMI] 23.0-23.9, adult Confirmed Active Chronic anemia Confirmed Active Depression Confirmed Active Dysphagia Confirmed Active History of wrist fracture Confirmed Active Hiatal hernia Confirmed Active History of gastric bypass Confirmed Active HTN (hypertension) Confirmed Active Sacroiliitis Confirmed Active Hospital discharge follow-up Confirmed Active Peptic esophageal ulcer Confirmed Active Diagnosis Diagnosis Type Effective Dates Health Status Cl inical Service Informant Facet arthropathy, lumbar Discharge Diagnosis 06/10/23 Facet arthropathy, lumbar Discharge Diagnosis 06/16/23 Procedures Procedure Date Related Diagnosis Body Site Status EGD - Esophagogastroduodenoscopy 1, 2 01/31/23 Completed DEXA (dual energy X-ray abso rptiometry) of lateral spine 3 01/28/23 Completed Chest x-ray 4 10/22/[address] of cervical spine 5 10/22/[address] of face 6 10/22/[address] of head 7 10/22/22 Completed EGD (esophagogastroduodenosc opy) and closure of duodenal fistula 8 12/25/[address] of abdomen and pelvis 9 03/29/[address] of abdomen and pelvis 10 12/06/19 Completed 1Esophageal ulcer with no stigmata of recent bleeding, biopsied. Benign-appearing esophageal stenosis. Gastric bypass with a large-sized pouch and intact staple line. Gastrojejunal anastomosis charecterized by healthy appearing mucosa. Normal examined jejunum, biopsied 2Pathology results: Duodenum, biopsy: focal, nonspecific acute duodenitis. Esophagus, ulcer, biopsy:Squamous mucosa with mild reactive cellular changes. No ulcer identified. Clinical correlation recommended. 3Impression: AP Spine L1-L4 is 0.943 g/cm2 with T score of -2.0/ Femur Neck is 0.776 g/cm2 with T score of -1.9. Femur Total is 0.758 g/cm2 with T score of -2.0. Z score of -0.7 , this patients BMD is considered within normal limits relative to their age. Even so, they may be considered osteopenoic or osteoporotic, which is normal for this age. 4Impression: No acute process 5Impression: No acute fracture or traumatic subluxation 6Impression: No acute findings in the face 7Impression: Exam limited due to lack of control and sagittal reformatted images. Within this constraint: No acute intracranial pathology 8Pathology report currently Small ulcer at the gastrojejunal anastomosis. Antral stomach biopsy gastric oxyntic mucosa with focal active inflammation, see note. Note: Immunohistochemical stain for H. pylori organisms have been ordered and the results of will be reported in an addendum 9CT abdomen pelvis with IV contrast Mild atelectasis [...] Most recent to oldest [Reference Range]: 1 Respiratory Rate 16 br/min (06/17/23 1:31 PM) Blood Pressure 157/94mmHg (06/17/23 1:31 PM) Cuff Pulse Pressure 63 mmHg (06/17/23 1:31 PM) Social History Social History Type Response Smoking Status Never smoked cigaret arun Sex Female Ortho Outpt Note * MD Vlad, Damian Silva: PERFORM Event Display: Ortho Outpt Note Authored Date: [id number] Name:SANDHYA HALL Patient Number:[id number] :1955 Date of Service:06/17/2023 Preoperative diagnosis: Right L5-S1 facet arthropathy Postoperative diagnosis: Same Procedure: Right L5-S1 facet joint injection under fluoroscopic guidance Indications: Patient is [id number] femalewho had 70% improvement following a right SI joint injection she continues to have pain a little higher from that spot presents today for facet joint injection to provide her with relief. Physical examination patient is without any focal motor or sensory deficits and negative seated straight leg raises, right sided tenderness of the lumbar sacral facet area, worse with extension. Consent: Verbal consent was obtained from the patient. Prior to the procedure a timeout was done for safety to identify patient's name date of and approach. Procedure: Patient was maintained in a prone position backside was cleansed with Betadine x3 fluoroscope was used to identify the right L5-S1 facet joint . The overlying skin was anesthetized with 2.5 mL of lidocaine 1% with a 25-gauge 1/2 inch needle. A 3-1/2 inch 22-gauge spinal needle was then directed under fluoroscopic guidance into the joint and they underwent injection after negative aspiration of <0.25ml of Omnipaque 300 to confirm intraarticular uptake then injection after negative aspiration of half a milliliter of the 80 mg/mL concentration of Depo-Medrol and 1/2 mL of 0.25%bupivacaine. Injection was well- tolerated images from the procedure were saved and downloaded to PACS. Disposition: Patient will be discharged home once discards criteria have been met. Electronic Signature on File CC: Emily Diehl PA-C [id number] [facility] [address] [facility] [address] Electronically Reviewed/Signed by: Damian Chu MD Author Signature Dt/Tm:06/17/2023 01:45 PM Staff Electrical Engineer of Orthopaedics & Rehabilitation and Physical Medicine & Rehabilitation [facility] .Outpt Proc * SNEHA Barnes, Trisha Case: PERFORM Event Display: .Outpt Proc Authored Date: [id number] OUTPATIENT PROCEDURE Name: SANDHYA HALL Patient Number: [id number] : 1955 Date of Service: 06/17/2023 OUTPATIENT PROCEDURE NOTE Is patient no Procedure performedRightFacet Joint Injection [id number] byDr. Damian Chu MD Resuscitation equipment checkedyes Anticoagulants stoppedN/A Patient has a driveryes xray guidance usedyesConscious sedationnoTime out completedyes consent signedyes Allergies checkedyesNKA Diabeticno PositionPronePre procedure pain level __6_/10 Skin PrepBetadineSterile drapes usedyes Skin Local Anesthetic: Needle ___25__ga ____1.5__in Lidocaile ___1__%___4__ml Other RR: 16 SpO2: 94% BP: 157/94 Block Needle _25_GA_3.5_InchesType - Epidural/spinal needle Procedure medication used Cortical Steroids _80__mg MethylprednisoloneLocal Anesthetic __0.25___% ___0.5__ml Bupivicaine TimeDrug/Event/[id number] Comments 1338 - 0.25ml Omnipaque R Facet joint 1339 - Procedure complete 152/93 64 97% Status:Pain on discharge _0___/10ComplicationsNo Neurologically stableYes DispositionDischarged Home with aftercare instructions given Follow up prn Electronic Signature on File Electronically Reviewed/Signed by: Trisha Barnes Author Signature Dt/Tm:06/17/2023 01:46 PM Electronically Reviewed/Signed by: Damian Chu MD Cosigner Signature Dt/Tm: 06/17/2023 02:32 PM Staff Electrical Engineer of Orthopaedics & Rehabilitation and Physical Medicine & Rehabilitation [facility] Patient Care team information Care Team Personnel Name: HARSH Diehl, Emily Horton Position: Physician Leather Fitter - Family Med Member Role: Primary Care Provider Address: Address: [address] [facility] [address] [place] [address] Care Team Related Persons Name: ANA RAMEY Address: [address] [id number]
[2023-07-21 21:08] LABS: Adenovirus F 40/41 PCR Not Detected (NotDetected); Astrovirus PCR Not Detected (NotDetected); Campylobacter PCR Not Detected (NotDetected); Cryptosporidium PCR Not Detected (NotDetected); Cyclospora cayetanensis PCR Not Detected (NotDetected); Entamoeba histolytica PCR Not Detected (NotDetected); Enteroaggregative E.coli(EAEC) Not Detected (NotDetected); Enteropathogenic E.coli (EPEC) Not Detected (NotDetected); Enterotoxigenic E.coli (ETEC) Not Detected (NotDetected); Giardia lamblia PCR Not Detected (NotDetected); Norovirus GI/GII PCR Not Detected (NotDetected); Plesiomonas shigelloides PCR Not Detected (NotDetected); Rotavirus A PCR Not Detected (NotDetected); Salmonella PCR Not Detected (NotDetected); Sapovirus PCR Not Detected (NotDetected); Shiga-like Toxin E.coli (STEC) Not Detected (NotDetected); Shigella/Enteroinvasive E.coli Not Detected (NotDetected); Vibrio cholerae PCR Not Detected (NotDetected); Vibrio species PCR Not Detected (NotDetected); Yersinia enterocolitica PCR Not Detected (NotDetected)
[2023-07-21] MEDS ORDERED: PANTOprazole 40 MG in SYRINGE 0 ML IV ONE (21:54)
[2023-07-21 23:28] LABS: Appearance Urine Cloudy (Clear); Bacteria Urine Automated 4+ (Negative); Bilirubin Urine Negative (Negative); Blood Urine Negative (Negative); Color Urine Yellow; Epithelial Cell Urine Auto 0-5 /lpf (0-5); Glucose Urine UA Negative (Negative); Ketones Urine Trace (Negative); Leukocyte Esterase Urine 1+ (Negative); Nitrite Urine Negative (Negative); Protein Urine 1+ (Negative); RBC Urine Automated 0-4 /hpf (0-4); Specific Gravity Urine 1.025 (1.000-1.030); Urobilinogen Urine Negative (Negative); pH Urine 5.5 (4.5-7.5)
[2023-07-22] MEDS ORDERED: SERTRALINE HCL 100 MG TABLET PO STA (03:10)
[2023-07-22] MEDS ORDERED: QUEtiapine FUMARATE 25 MG TABLET PO STA (03:10)
[2023-07-22] MEDS ORDERED: hydrOXYzine HCl 25 MG TAB PO STA (03:10)
--- NOTE | 2023-07-22 06:16 | Electrocardiogram Report ---
Test Reason : Blood Pressure : / mmHG Vent. Rate : 094 BPM Atrial Rate : 094 BPM P-R Int : 166 ms QRS Dur : 078 ms QT Int : 362 ms P-R-T Axes : 009 -30 051 degrees QTc Int : 452 ms Normal sinus rhythm Left axis deviation Minimal voltage criteria for LVH, may be normal variant ( R in aVL ) Abnormal ECG When compared with ECG of 26-APR-2023 14:08, No significant change was found Confirmed by Hector Conteh ([id number]) on 07/22/2023 6:15:55 AM Referred By: Confirmed By:Hector Conteh
--- NOTE | 2023-07-22 07:00 | Hospitalist Progress Note ---
Date of Service July 22, 2023 Assessment & Plan (1) Nausea and vomiting: (2) Syncope: (3) GERD (gastroesophageal reflux disease): (4) MURALI (acute kidney injury): (5) Hyponatremia: (6) History of alcohol use: (7) History of gastric bypass: (8) Depression: (9) Acute dehydration: Plan #Nausea and vomiting -Nausea/vomiting x 3 days -Syncopal episode the morning of 07/21 on the toilet -Hypotensive at 72/59 on arrival; likely secondary to GI losses and dehydration from a viral gastroenteritis. -Abdomen/pelvic CT without acute abnormalities or evidence of bowel obstruction -No leukocytosis; afebrile -COVID, flu, RSV negative -Lactate WNL -Anion gap elevated at 17 -2 L of fluids given in the ED. Continue LR @ 80 ml/hr. -Stool cultures negative -Urine cultures ordered, pending -Blood cultures ordered, pending -Trial clear liquid diet and advance as tolerated -Zofran as needed for nausea/vomiting; QTc 452, will add on Compazine prn as well. -Acetaminophen as needed for pain/fever -A.m. CBC, BMP #Syncope: -On 07/21 (as above) -EKG NSR at 94 bpm; QTc 452 -Likely due to dehydration -Continuous telemetry monitoring #GERD (gastroesophageal reflux disease): -Converted Protonix 40 mg p.o. --> Protonix 40 mg IV BID -Famotidine 20 mg IV QAM #MURALI (acute kidney injury): -BUN 41, creatinine 1.58 (baseline 0.80), EGFR 33.5 -Likely secondary to hypovolemia/GI losses, kidney hypoperfusion -BUN/creatinine elevated at ratio 25.9 -Avoid nephrotoxic agents -Continue fluid resuscitation with LR at 80mL/hr x 2 -Hold lisinopril #Hyponatremia: -Mild hyponatremia at 132 -Continue fluid resuscitation -Monitor with daily BMPs History of alcohol use: -Hx of alcohol abuse and alcohol withdrawal; [facility] admission in October 2022 where she was reportedly drinking 8-10 rum drinks daily -Patient reports she had a rum and coke last night on 07/20; she reports 3-4 drinks per week -Ethyl alcohol level WNL -Lipase WNL at 55 -AWSS protocol as needed -Restart home thiamine. #History of gastric bypass: -In 1999 #Depression: -Continue hydroxyzine, sertraline, quetiapine #Acute dehydration: -Fluid resuscitation (as above) Disposition: Obs -admit to MedSurg telemetry Full code Clear liquid diet and advance as tolerated VTE PPx: Heparin 5000 units SQ q12h Admission and Anticipated Discharge Date Admission Date: July 21, 2023 Supervising Physician Co-Signing Physician Notes I personally examined the patient and verified all galo points of history and exam, discussed case, and agree with decision making with Dr Renner feeling a little better but still not great. belly hurts some LLQ, skin aches. fluids had not been continued through the night due to order processing issues. fluids started again ~1hr prior to my seeing her thanks to dr renner's additional orders. vitals noted nad but appears quite fatigued nc at mm sl dry abd soft but does have mild LLQ tenderness (just medial to ASIS but feels like pain more reproduced with abdominal rather than MSK palpation) no guarding no rebound no rigidity. ext no cce skin is dry dehdyration/weakness/MURALI - poor PO intake - has had many episodes of gastritis/EtOH mediated n/v, etc - but given diarrhea, skin aches - suspect she may also have a viral enteritis in addition to her normal baseline. IV fluids, supportive care, time. DVT proph - heparin SQ EtOH abuse - thiamine, folate Subjective Patient was seen bedside this morning. Has some right lower quadrant tenderness and diarrhea this morning. She is also having nausea and Zofran has not helped. Review of Systems 2 Review of Systems: All systems reviewed & are unremarkable except as noted in Subjective Physical Exam Physical Exam: Constitutional: well-appearing, no acute distress HEENT: NCAT, no conjunctival injection CV: regular rhythm, no murmur appreciated, extremities well-perfused, no LE maggie a Resp: CTABL, no wheezes/rales/rhonchi appreciated, no increased work of breathing GI: soft, nondistended, right lower quadrant tenderness, BS normoactive MSK: no gross deformities appreciated Skin: warm, dry, no rash appreciated Neuro: alert, oriented, no focal neurologic deficit appreciated Results & Data Results & Data Vital Signs (Past 12 Hours) Vital Signs Pulse Pulse Resp BP BP Pulse Ox O2 Del Method 07/22/23 06:05 93 H 16 105/54 L 95 Room Air 01/16/24 05:00 97 H 20 07/22/23 04:50 97 H 23 07/22/23 04:40 95 H 24 07/22/23 04:30 100 H 20 07/22/23 04:20 99 H 22 07/22/23 04:10 99 H 25 H 07/22/23 04:00 107 H 23 07/22/23 03:50 101 H 19 07/22/23 03:40 104 H 21 07/22/23 03:30 99 H 20 93 07/22/23 03:20 100 H 18 93 07/22/23 03:16 120/77 07/22/23 03:16 109 H 07/22/23 03:00 100 H 21 07/22/23 02:50 105 H 22 07/22/23 02:40 98 H 22 07/22/23 02:30 98 H 22 07/22/23 02:20 99 H 20 07/22/23 02:10 100 H 20 93 07/22/23 02:00 97 H 21 93 07/22/23 02:00 125/79 07/22/23 01:50 98 H 24 94 07/22/23 01:40 98 H 24 94 07/22/23 01:30 96 H 22 94 07/22/23 01:20 94 H 24 94 07/22/23 01:10 94 H 22 96 07/22/23 01:00 95 H 21 94 07/22/23 01:00 115/78 07/22/23 00:52 102 H 17 94 07/22/23 00:40 96 H 19 07/22/23 00:30 93 H 17 07/22/23 00:20 94 H 20 07/22/23 00:10 95 H 21 07/22/23 00:00 94 H 18 07/22/23 00:00 128/71 07/21/23 23:50 92 H 21 07/21/23 23:40 93 H 24 07/21/23 23:30 90 18 97 07/21/23 23:20 92 H 24 96 07/21/23 23:13 139/81 07/21/23 22:44 91 H 07/21/23 22:40 87 17 07/21/23 22:30 124/69 07/21/23 22:30 91 H 20 07/21/23 22:20 90 22 07/21/23 22:10 90 24 07/21/23 22:00 89 21 07/21/23 22:00 125/72 07/21/23 21:50 92 H 13 07/21/23 21:40 88 22 07/21/23 21:30 89 24 07/21/23 21:30 109/71 07/21/23 21:20 88 22 07/21/23 21:10 88 18 07/21/23 21:00 119/71 07/21/23 21:00 87 18 07/21/23 20:50 85 18 07/21/23 20:40 87 15 07/21/23 20:30 89 17 07/21/23 20:30 129/79 07/21/23 20:20 86 17 07/21/23 20:10 85 19 07/21/23 20:00 105/67 07/21/23 20:00 86 22 07/21/23 19:50 86 17 07/21/23 19:40 87 17 07/21/23 19:30 91 H 19 07/21/23 19:30 105/71 07/21/23 19:22 104 H 22 07/21/23 19:00 107/69 07/21/23 19:00 95 H 18 Resident Activity Tracking Resident Involvement: Resident Care Provided Care Provided: Adult Hospital Medicine (2) Syncope Syncope type: unspecified Qualified Code(s): R55 - Syncope and collapse
[2023-07-22] MEDS ORDERED: PROCHLORPERAZINE MALEATE 10 MG TAB PO STA (08:48)
[2023-07-22] MEDS: LACTATED RINGER'S 1,000 ML IV SCH (10:54)
[2023-07-22] MEDS ORDERED: PANTOprazole 40 MG in SYRINGE 0 ML IV SCH ×2 (11:00→21:00)
[2023-07-22] MEDS ORDERED: Ativan IV Alcohol Withdrawal--Active Protocol IV PRN (12:25)
[2023-07-22] MEDS ORDERED: LORazepam 2 MG in SYRINGE 1 ML IV PRN (12:25)
[2023-07-22] MEDS ORDERED: LORazepam 1 MG in SYRINGE 0.5 ML IV PRN (12:25)
[2023-07-22] MEDS ORDERED: LORazepam 3 MG in SYRINGE 1.5 ML IV PRN (12:25)
[2023-07-22] MEDS: THIAMINE HCL 100 MG TAB PO SCH (12:52)
[2023-07-22] MEDS: PROCHLORPERAZINE MALEATE 5 MG TAB PO SCH ×2 (12:52→18:42)
[2023-07-22] MEDS: FAMOTIDINE 20 MG in SYRINGE 3 ML IV SCH (12:52)
[2023-07-22] MEDS: HEPARIN SOD 5,000 UNIT/0.5 ML VIAL SQ SCH (12:53)
--- NOTE | 2023-07-22 13:15 | Billing Data ---
Date of Service July 22, 2023 Coding Level of Care Code 61325 SUB INP/OBS CARE MIN
[2023-07-22 14:14] LABS: A calco-baum cmplx NotReported Not Detected (NotDetected); Bact fragilis Not Reported Not Detected (NotDetected); Blood Culture Id Panel See PCR Comment (NotDetected); C auris Not Reported Not Detected (NotDetected); CTX-M Resistant Gene Not Detected (NotDetected); Calbicans Not Reported Not Detected (NotDetected); Candida glabrata Not Reported Not Detected (NotDetected); Candida krusei Not Reported Not Detected (NotDetected); Cneoformans/gatti Not Reported Not Detected (NotDetected); Cparapsilosis Not Reported Not Detected (NotDetected); E cloacae compx Not Reported Not Detected (NotDetected); Efaecalis Not Reported Not Detected (NotDetected); Efaecium Not Reported Not Detected (NotDetected); Enterobacterales DETECTED (NotDetected); Enterobacterales Not Reported DETECTED (NotDetected); Escherichia coli Not Reported Not Detected (NotDetected); H influenzae Not Reported Not Detected (NotDetected); IMP Resistant Gene Not Detected (NotDetected); K aerogenes Not Reported Not Detected (NotDetected); KPC Resistant Gene Not Detected (NotDetected); Koxytoca Not Reported Not Detected (NotDetected); Kpneumoniae grp Not Reported DETECTED (NotDetected); Lmonocyt Not Reported Not Detected (NotDetected); N meningitidis Not Reported Not Detected (NotDetected); NDM Resistant Gene Not Detected (NotDetected); OXA 48 Like Resistant Gene Not Detected (NotDetected); P aeruginosa Not Reported Not Detected (NotDetected); Proteus spp Not Reported Not Detected (NotDetected); Salmonella spp Not Reported Not Detected (NotDetected); Smarcescens Not Reported Not Detected (NotDetected); Staph lugdunensis Not Reported Not Detected (NotDetected); Staph spp. Not Reported Not Detected (NotDetected); Staphaureus Not Reported Not Detected (NotDetected); Staphepi Not Reported Not Detected (NotDetected); Stenmaltophilia Not Reported Not Detected (NotDetected); Strep agal(GrpB) Not Reported Not Detected (NotDetected); Strep pneum Not Reported Not Detected (NotDetected); Strep pyog (GrpA) Not Reported Not Detected (NotDetected); Strep spp Not Reported Not Detected (NotDetected); VIM Resistant Gene Not Detected (NotDetected); mcr-1 Colistin Resistant Gene Not Detected (NotDetected)
[2023-07-22 14:25] LABS: Klebsiella pneumoniae group DETECTED (NotDetected)
[2023-07-22] MEDS ORDERED: cefTRIAXone SODIUM 1,000 MG in DEXTROSE 5 % MINI-B 50 ML IV SCH (18:00)
[2023-07-22] MEDS: QUEtiapine FUMARATE 25 MG TABLET PO SCH (20:34)
[2023-07-22] MEDS: hydrOXYzine HCl 25 MG TAB PO SCH (20:34)
[2023-07-22] MEDS: SERTRALINE HCL 100 MG TABLET PO SCH (20:35)
[2023-07-22] MEDS: PANTOprazole 40 MG in SYRINGE 0 ML IV SCH (20:36)
[2023-07-22] MEDS: ONDANSETRON INJ 2 MG/ML 2 ML VIAL IV PRN (20:56)
[2023-07-22] MEDS: ACETAMINOPHEN 325 MG TAB PO PRN (22:47)
[2023-07-23] MEDS: HEPARIN SOD 5,000 UNIT/0.5 ML VIAL SQ SCH ×3 (01:02→19:50)
[2023-07-23] MEDS: PROCHLORPERAZINE MALEATE 5 MG TAB PO SCH ×2 (01:02→06:30)
[2023-07-23] MEDS: LACTATED RINGER'S 1,000 ML IV SCH (01:25)
[2023-07-23] MEDS ORDERED: Nursing to Pharmacy Communication SCH (01:30)
[2023-07-23] MEDS ORDERED: PROCHLORPERAZINE MALEATE 5 MG TAB PO PRN (06:54)
--- NOTE | 2023-07-23 07:02 | Hospitalist Progress Note ---
Date of Service July 23, 2023 Assessment & Plan (1) Nausea and vomiting: (2) Syncope: (3) GERD (gastroesophageal reflux disease): (4) MURALI (acute kidney injury): (5) Hyponatremia: (6) History of alcohol use: (7) History of gastric bypass: (8) Depression: (9) Acute dehydration: Plan #Nausea and vomiting -Nausea/vomiting x 3 days -Syncopal episode the morning of 07/21 on the toilet -Hypotensive at 72/59 on arrival; likely secondary to GI losses and dehydration from a viral gastroenteritis. -Abdomen/pelvic CT without acute abnormalities or evidence of bowel obstruction -COVID, flu, RSV negative -Lactate WNL -Anion gap elevated at 17 -2 L of fluids given in the ED. will discontinue fluids as patient is able to eat on her own now. -Stool cultures negative -Urine cultures and blood cultures growing E. coli. -Regular diet -Zofran and Compazine as needed for nausea. -Acetaminophen as needed for pain/fever -Continue to trend CBC and BMP. #Gram-negative bacteremia -Blood cultures growing 1 out of 2 E. coli, pending sensitivities. Urine culture was also growing E. coli. -Bacteremia most likely due to urinary source secondary to deconditioning and decreasing trips to the bathroom causing a UTI. -Will continue with ceftriaxone 2 g every 24 hours. Did have a fever overnight had already received 1 dose of antibiotics at that time. Been afebrile since. #Deconditioning -Patient is frail and been having issues with walking recently. May be multifactorial given history of alcoholism. -PT/OT ordered, anticipate rehab at time of discharge. -Patient also was post have a follow-up on a back injection done by [facility] that she missed while being admitted this hospital stay. Recommend follow-up with [facility] after discharge. #Syncope: -On 07/21 (as above) -EKG NSR at 94 bpm; QTc 452 -Likely due to dehydration -Continuous telemetry monitoring #GERD (gastroesophageal reflux disease): -Converted Protonix 40 mg p.o. --> Protonix 40 mg IV BID -Famotidine 20 mg IV QAM #MURALI (resolved) -BUN 41, creatinine 1.58 (baseline 0.80), EGFR 33.5 -Likely secondary to hypovolemia/GI losses, kidney hypoperfusion -BUN/creatinine elevated at ratio 25.9 -Avoid nephrotoxic agents -Hold lisinopril. -Creatinine improved to normal with fluids. #Hyponatremia: -Mild hyponatremia at 132 at time of admission. -Continue fluid resuscitation -Monitor with daily BMPs History of alcohol use: -Hx of alcohol abuse and alcohol withdrawal; [facility] admission in October 2022 where she was reportedly drinking 8-10 rum drinks daily -Patient reports she had a rum and coke last night on 07/20; she reports 3-4 drinks per week -Ethyl alcohol level WNL -Lipase WNL at 55 -AWSS protocol as needed -Restart home thiamine. #History of gastric bypass: -In 1999 #Depression: -Continue hydroxyzine, sertraline, quetiapine #Acute dehydration: -Fluid resuscitation (as above) [facility]: [facility] Full code Clear liquid diet and advance as tolerated VTE PPx: Heparin 5000 units SQ q12h Admission and Anticipated Discharge Date Admission Date: July 21, 2023 Supervising Physician Co-Signing Physician Notes I personally examined the patient and verified all galo points of history and exam, discussed case, and agree with decision making with Dr Renner eating and drinking better, but notes she's really weak. doesn't really think she can walk. vitals noted nad heent nc at mmm breathing unlabored no accessory muscles good effort skin no rashes no pallor or icterus GNR bacteremia - present on admission - with hindsight - UTI -> subsequent bacteremia was definitely contributing her her presentation. on ceftriaxone, follow ID&S, but clinically appears better than yesterday dehydration/weakness/MURALI - poor PO intake - has had many episodes of gastritis/EtOH mediated n/v, etc - but as above, while initially suspicious of a viral infection, her blood cultures suggest UTI -> subsequent bacteremia as the cause DVT proph - heparin SQ EtOH abuse - thiamine, folate weakness/deconditioning - PT/OT eval and treat, likely to need rehab (she is aware and is willing this time) Subjective Patient seen bedside this morning. States that she is feeling better but not perfect. Still has issues with walking. She also states that her breathing is sore. Also states that she has been having decreased appetite for quite some time. She denies any issues with urination such as urinary urgency, frequency, or dysuria. Though she states that her issues with walking have been going on for approximately 6 weeks and that she does not normally the amount of trips to the bathroom. Review of Systems Review of Systems: All systems reviewed & are unremarkable except as noted in Subjective Physical Exam Physical Exam: Constitutional: well-appearing, no acute distress HEENT: NCAT, no conjunctival injection CV: regular rhythm, no murmur appreciated, extremities well-perfused, no LE edema Resp: CTABL, no wheezes/rales/rhonchi appreciated, no increased work of breathing GI: soft, nondistended, right lower quadrant tenderness, BS normoactive MSK: no gross deformities appreciated Skin: warm, dry, no rash appreciated Neuro: alert, oriented, no focal neurologic deficit appreciated Results & Data Results & Data Vital Signs (Past 12 Hours) Vital Signs Temp Pulse Pulse Resp BP BP Pulse Ox 07/23/23 03:00 36.8 C 85 20 135/84 96 07/23/23 00:19 07/22/23 22:25 103 H 07/22/23 22:00 39.3 C H 101 H 20 114/78 92 O2 Del Method 07/23/23 03:00 Room Air 07/23/23 00:19 Room Air 07/22/23 22:25 07/22/23 22:00 Room Air (2) Syncope Syncope type: unspecified Qualified Code(s): R55 - Syncope and collapse
[2023-07-23] MEDS ORDERED: SODIUM CHLORIDE 0.9% 1,000 ML IV SCH (08:00)
[2023-07-23] MEDS: FAMOTIDINE 20 MG in SYRINGE 3 ML IV SCH (08:25)
[2023-07-23] MEDS: FOLIC ACID 1 MG TAB PO SCH (08:25)
[2023-07-23] MEDS: PANTOprazole 40 MG in SYRINGE 0 ML IV SCH ×2 (08:25→19:49)
[2023-07-23] MEDS: THIAMINE HCL 100 MG TAB PO SCH (08:25)
[2023-07-23 09:18] LABS: Basophils # (auto) 0.02 K/uL (0.00-0.20); Basophils % (auto) 0.3 %; Eosinophils # (auto) 0.01 K/uL (0.00-0.50); Eosinophils % (auto) 0.1 %; Hematocrit (blood only) 27.5 % (37.0-47.0); Hemoglobin 9.6 g/dl (12.0-16.0); Immature Granulocytes # (auto) 0.04 K/uL (0.01-0.20); Immature Granulocytes % (auto) 0.5 %; Lymphocytes # (auto) 0.59 K/uL (1.20-3.40); Lymphocytes % (auto) 7.9 %; Mean Corpuscular Hemoglobin 30.4 pg (25.0-34.0); Mean Corpuscular Hgb Conc 34.9 g/dL (32.0-36.0); Mean Platelet Volume 9.8 fL (9.4-12.4); Monocytes # (auto) 0.94 K/uL (0.11-0.59); Monocytes % (auto) 12.5 %; Neutrophils % (auto) 78.7 %; Platelet Count 110 K/uL (130-400); RDW Coefficient of Variation 13.9 % (11.5-14.5); RDW Standard Deviation 44.5 fL (36.4-46.3); Red Blood Count 3.16 M/uL (4.20-5.40)
[2023-07-23] MEDS: cefTRIAXone SODIUM 2,000 MG in DEXTROSE 5 % MINI-B 50 ML IV SCH (09:24)
[2023-07-23 09:32] LABS: BUN Creatinine Ratio 20.2 (10-20); Calcium 8.2 mg/dl (8.6-10.3); Creatinine Clr Calc Pharmacy 45.3 ml/min; Est GFR (African American) 64.4 ml/min; Est GFR (Non-African American) 55.6 ml/min; Potassium 3.7 mmol/L (3.5-5.1)
--- NOTE | 2023-07-23 16:52 | Billing Data ---
Date of Service July 23, 2023 Coding Level of Care Code 92523 SUB INP/OBS CARE MIN
[2023-07-23] MEDS: QUEtiapine FUMARATE 25 MG TABLET PO SCH (19:49)
[2023-07-23] MEDS: SERTRALINE HCL 100 MG TABLET PO SCH (19:50)
[2023-07-23] MEDS: hydrOXYzine HCl 25 MG TAB PO SCH (19:50)
[2023-07-23] MEDS: ACETAMINOPHEN 325 MG TAB PO PRN (19:50)
--- NOTE | 2023-07-24 07:06 | Hospitalist Progress Note ---
Date of Service July 24, 2023 Assessment & Plan (1) Nausea and vomiting: (2) Syncope: (3) GERD (gastroesophageal reflux disease): (4) MURALI (acute kidney injury): (5) Hyponatremia: (6) History of alcohol use: (7) History of gastric bypass: (8) Depression: (9) Acute dehydration: Plan #Nausea and vomiting -Nausea/vomiting x 3 days -Syncopal episode the morning of 07/21 on the toilet -Hypotensive at 72/59 on arrival; likely secondary to GI losses and dehydration from a viral gastroenteritis. -Abdomen/pelvic CT without acute abnormalities or evidence of bowel obstruction -COVID, flu, RSV negative -Lactate WNL -Anion gap elevated at 17 -2 L of fluids given in the ED, symptoms resolved. -Stool cultures negative -Urine cultures and blood cultures growing Klebsiella pneumonia -Blood culture sensitivities: Resistance to Unasyn and cefazolin, intermediate to Augmentin -Urine culture sensitivities: Resistance Unasyn and intermittent to Zosyn -Continue on ceftriaxone while admitted to the hospital as stated below. -Regular diet -Zofran and Compazine as needed for nausea. -Acetaminophen as needed for pain/fever -Continue to trend CBC and BMP. #Gram-negative bacteremia Urine cultures and blood cultures growing Klebsiella pneumonia -Blood culture sensitivities: Resistance to Unasyn and cefazolin, intermediate to Augmentin -Urine culture sensitivities: Resistance Unasyn and intermittent to Zosyn -Bacteremia most likely due to urinary source secondary to deconditioning and decreasing trips to the bathroom causing a UTI. -Will continue with ceftriaxone 2 g every 24 hours. Did have a fever overnight had already received 1 dose of antibiotics at that time. Been afebrile since. -Will continue on antibiotic therapy for 7 days total. Will consider cefdinir, Cipro, or Bactrim at time of discharge. Will continue on ceftriaxone while in the hospital. #Deconditioning -Patient is frail and been having issues with walking recently. May be multifactorial given history of alcoholism. -PT/OT ordered, anticipate rehab at time of discharge. -Patient also was post have a follow-up on a back injection done by [facility] that she missed while being admitted this hospital stay. Recommend follow-up with [facility] after discharge. #Syncope: -On 07/21 (as above) -EKG NSR at 94 bpm; QTc 452 -Likely due to dehydration -Continuous telemetry monitoring #GERD (gastroesophageal reflux disease): -Converted Protonix 40 mg p.o. --> Protonix 40 mg IV BID -Famotidine 20 mg IV QAM #MURALI (resolved) -BUN 41, creatinine 1.58 (baseline 0.80), EGFR 33.5 -Likely secondary to hypovolemia/GI losses, kidney hypoperfusion -BUN/creatinine elevated at ratio 25.9 -Avoid nephrotoxic agents -Hold lisinopril. -Creatinine improved with normal with fluids. #Hyponatremia: -Mild hyponatremia at 132 at time of admission. -Monitor with daily BMPs History of alcohol use: -Hx of alcohol abuse and alcohol withdrawal; [facility] admission in October 2022 where she was reportedly drinking 8-10 rum drinks daily -Patient reports she had a rum and coke last night on 07/20; she reports 3-4 drinks per week -Ethyl alcohol level WNL -Lipase WNL at 55 -AWSS protocol as needed -Restart home thiamine. #History of gastric bypass: -In 1999 #Depression: -Continue hydroxyzine, sertraline, quetiapine Disposition: PT/OT Full code regular diet VTE PPx: Heparin 5000 units SQ q12h Admission and Anticipated Discharge Date Admission Date: July 23, 2023 Supervising Physician Co-Signing Physician Notes I personally examined the patient and verified all galo points of history and exam, discussed case, and agree with decision making with Dr Renner Still feels fairly weak, but was a little bit stronger. Was able to get to and from the bathroom, although she notes her legs felt quite weak. vitals noted nad heent nc at mmm breathing unlabored no accessory muscles good effort skin no rashes no pallor or icterus GNR bacteremia - present on admission - with hindsight - UTI -> subsequent bacteremia was definitely contributing her her presentation. on ceftriaxone, doing better dehydration/weakness/MURALI - poor PO intake - has had many episodes of gastritis/EtOH mediated n/v, etc - but as above, while initially suspicious of a viral infection, her blood cultures suggest UTI -> subsequent bacteremia as the cause. improved DVT proph - heparin SQ EtOH abuse - thiamine, folate weakness/deconditioning - PT/OT eval and treat, Surprisingly doing well enough she will not need rehab. Subjective Patient seen bedside this AM. States that she is doing okay. Cough improving. No nausea, vomiting, or ab pain. Review of Systems Review of Systems: All systems reviewed & are unremarkable except as noted in Subjective Physical Exam Physical Exam: Constitutional: well-appearing, no acute distress HEENT: NCAT, no conjunctival injection CV: regular rhythm, no murmur appreciated, extremities well-perfused, no LE edema Resp: CTABL, no wheezes/rales/rhonchi appreciated, no increased work of breathing GI: soft, nondistended, non-tender, BS normoactive MSK: no gross deformities appreciated Skin: warm, dry, no rash appreciated Neuro: alert, oriented, no focal neurologic deficit appreciated Results & Data Results & Data Vital Signs (Past 12 Hours) Vital Signs Temp Pulse Resp BP BP Pulse Ox O2 Del Method 07/23/23 23:57 37.0 C 87 16 112/75 94 Room Air 07/23/23 20:07 37.4 C 99 H 20 115/75 94 Room Air Resident Activity Tracking Resident Involvement: Resident Care Provided Care Provided: Adult Hospital Medicine (2) Syncope Syncope type: unspecified Qualified Code(s): R55 - Syncope and collapse
[2023-07-24] MEDS: cefTRIAXone SODIUM 2,000 MG in DEXTROSE 5 % MINI-B 50 ML IV SCH (07:46)
[2023-07-24] MEDS: FAMOTIDINE 20 MG in SYRINGE 3 ML IV SCH (07:47)
[2023-07-24] MEDS: PANTOprazole 40 MG in SYRINGE 0 ML IV SCH ×2 (07:48→20:17)
[2023-07-24] MEDS: HEPARIN SOD 5,000 UNIT/0.5 ML VIAL SQ SCH ×3 (07:48→20:17)
[2023-07-24] MEDS: FOLIC ACID 1 MG TAB PO SCH (07:49)
[2023-07-24] MEDS: THIAMINE HCL 100 MG TAB PO SCH (07:49)
[2023-07-24 12:11] LABS: Basophils # (auto) 0.02 K/uL (0.00-0.20); Basophils % (auto) 0.2 %; Eosinophils # (auto) 0.06 K/uL (0.00-0.50); Eosinophils % (auto) 0.6 %; Hematocrit (blood only) 29.6 % (37.0-47.0); Immature Granulocytes # (auto) 0.11 K/uL (0.01-0.20); Immature Granulocytes % (auto) 1.1 %; Lymphocytes # (auto) 0.99 K/uL (1.20-3.40); Lymphocytes % (auto) 9.7 %; Mean Corpuscular Hemoglobin 30.2 pg (25.0-34.0); Mean Corpuscular Hgb Conc 33.8 g/dL (32.0-36.0); Mean Corpuscular Volume 89.4 fL (80.0-100.0); Monocytes # (auto) 1.87 K/uL (0.11-0.59); Monocytes % (auto) 18.3 %; Neutrophils # (auto) 7.18 K/uL (1.40-6.50); Neutrophils % (auto) 70.1 %; Platelet Count 166 K/uL (130-400); RDW Coefficient of Variation 14.2 % (11.5-14.5); RDW Standard Deviation 46.5 fL (36.4-46.3); Red Blood Count 3.31 M/uL (4.20-5.40); White Blood Count 10.23 K/ul (4.8-10.8)
[2023-07-24 12:23] LABS: BUN Creatinine Ratio 19.4 (10-20); Calcium 8.4 mg/dl (8.6-10.3); Creatinine Clr Calc Pharmacy 45.8 ml/min; Est GFR (African American) 65.1 ml/min; Est GFR (Non-African American) 56.2 ml/min; Potassium 3.6 mmol/L (3.5-5.1)
--- NOTE | 2023-07-24 17:57 | Billing Data ---
Date of Service July 24, 2023 Coding Level of Care Code 99660 SUB INP/OBS CARE MIN
[2023-07-24] MEDS: QUEtiapine FUMARATE 25 MG TABLET PO SCH (20:17)
[2023-07-24] MEDS: SERTRALINE HCL 100 MG TABLET PO SCH (20:17)
[2023-07-24] MEDS: hydrOXYzine HCl 25 MG TAB PO SCH (20:17)
[2023-07-24] MEDS: ONDANSETRON INJ 2 MG/ML 2 ML VIAL IV PRN (20:45)
[2023-07-24] MEDS: ACETAMINOPHEN 325 MG TAB PO PRN (21:57)
[2023-07-25 07:15] LABS: Basophils # (auto) 0.04 K/uL (0.00-0.20); Basophils % (auto) 0.6 %; Eosinophils # (auto) 0.12 K/uL (0.00-0.50); Eosinophils % (auto) 1.7 %; Hematocrit (blood only) 31.8 % (37.0-47.0); Hemoglobin 10.5 g/dl (12.0-16.0); Immature Granulocytes % (auto) 1.4 %; Lymphocytes # (auto) 1.65 K/uL (1.20-3.40); Lymphocytes % (auto) 23.2 %; Mean Corpuscular Hemoglobin 29.8 pg (25.0-34.0); Mean Corpuscular Volume 90.3 fL (80.0-100.0); Mean Platelet Volume 9.4 fL (9.4-12.4); Monocytes # (auto) 1.19 K/uL (0.11-0.59); Monocytes % (auto) 16.7 %; Neutrophils # (auto) 4.02 K/uL (1.40-6.50); Neutrophils % (auto) 56.4 %; Platelet Count 217 K/uL (130-400); RDW Coefficient of Variation 14.1 % (11.5-14.5); RDW Standard Deviation 46.3 fL (36.4-46.3); Red Blood Count 3.52 M/uL (4.20-5.40); White Blood Count 7.12 K/ul (4.8-10.8)
[2023-07-25 07:39] LABS: Albumin Globulin Ratio 1.2 (0.9-2); Albumin Level 3.4 gm/dl (3.4-5.0); BUN Creatinine Ratio 16.3 (10-20); Bilirubin,Total 0.3 mg/dl (0.2-1.0); Calcium 8.4 mg/dl (8.6-10.3); Creatinine Clr Calc Pharmacy 45.3 ml/min; Est GFR (African American) 64.4 ml/min; Est GFR (Non-African American) 55.6 ml/min; Globulin 2.8 gm/dl (2.5-4.0); Magnesium 1.5 mg/dl (1.7-2.4); Potassium 3.8 mmol/L (3.5-5.1); Total Protein 6.2 gm/dl (6.0-8.3)
[2023-07-25] MEDS: cefTRIAXone SODIUM 2,000 MG in DEXTROSE 5 % MINI-B 50 ML IV SCH (07:46)
[2023-07-25] MEDS: PANTOprazole 40 MG in SYRINGE 0 ML IV SCH ×2 (08:16→20:58)
[2023-07-25] MEDS: THIAMINE HCL 100 MG TAB PO SCH (08:17)
[2023-07-25] MEDS: FOLIC ACID 1 MG TAB PO SCH (08:17)
[2023-07-25] MEDS: FAMOTIDINE 20 MG in SYRINGE 3 ML IV SCH (08:17)
[2023-07-25] MEDS: HEPARIN SOD 5,000 UNIT/0.5 ML VIAL SQ SCH ×2 (08:19→19:47)
[2023-07-25] MEDS ORDERED: CEFDINIR 300 MG CAP PO SCH (09:00)
--- NOTE | 2023-07-25 09:33 | Discharge Summary ---
Date of Service July 25, 2023 Admission HPI Per Admitting Provider Roger is a 67-year-old female with PMH of syncope, cholecystitis, s/p cholecystectomy, GERD, esophageal dysmotility, alcohol intoxication, and gastric bypass. She presented via EMS for nausea, vomiting, weakness, and a syncopal episode the morning of 07/21. N/V/D has been ongoing x 3 days. She also endorses intermittent epigastric pain, which she rates 2/10 at present. No radiation to the back. Patient reportedly fainted on the toilet this morning, but denies falling off the toilet. She reports that she rested her head on the side rail and passed out for 2-3 minutes. No head strike. She does not take any medications this morning, and reports she has not been able to keep her regular medications down for the past couple days. She last vomited at 1000 in the morning of 07/21. She has been tolerating water, but struggling with fluids and other solids. History of gastric bypass surgery in 1999. History of gallbladder removal in 2013. Patient reports that she was drinking alcohol last night; 1 drink; rum and coke; 34 drinks per week. She denies smoking, tobacco use, chewing tobacco, and recreational drug use. Patient's vitals are stable at time of admission. ED course: NSS 1000 mL IV Zofran 4 mg IV LR 1000 mL IV ROS: Patient endorses chills, body aches, fainting, dizziness, lightheadedness, productive cough, AKBAR, and epigastric pain. Patient denies fever, night sweats, rashes, hemoptysis, hematemesis, chest pain, chest palpitations, pleuritic CP, SOB at rest, urinary s/s, blood in the urine/stool, burning with urination, or numbness or tingling in legs or arms. Admission Exam Per Admitting Provider General: no acute distress; nausea; non-toxic appearing; well-nourished; cooperative HEENT: normocephalic, atraumatic; no scleral icterus; PERRLA w/ EOMs intact; moist mucus membrane; vision and hearing grossly intact Neck: supple; no lymphadenopathy; trachea midline Skin: warm, dry without signs of tenting; no cyanosis; no rashes, bruising, lesions, or erythema noted CV: chest wall NTP; RRR; S1/S2 normal; no murmurs/rubs/gallops; bounding pulses intact and symmetric at radial, DP, and PT Lungs: no acute respiratory distress; symmetrical chest wall expansion; clear breath sounds across all lung dotson w/o adventitious sounds; no wheezing ABD: Soft; LUQ TTP; RUQ, RLQ, LLQ NTP; negative McBurney's point tenderness; BS present; no rebound/guarding; no distention; negative CVA tenderness; no rashes or bruising on the abdomen or back MSK: no tics or fasciculations; no edema noted in the LEs b/l, nonerythematous; lower extremities TTP Neuro: A&Ox3; normal mood and affect; fluent speech; no focal deficits; sensation grossly intact in the LEs B/L Principal Diagnosis UTI with bacteremia Discharge Exam Constitutional: well-appearing, no acute distress HEENT: NCAT, no conjunctival injection CV: regular rhythm, no murmur appreciated, extremities well-perfused, no LE edema Resp: CTABL, no wheezes/rales/rhonchi appreciated, no increased work of breathing GI: soft, nondistended, non-tender, BS normoactive MSK: no gross deformities appreciated Skin: warm, dry, no rash appreciated Neuro: alert, oriented, no focal neurologic deficit appreciated Discharge Data Allergies Allergy/AdvReac Type Severity Reaction Status Date / Time No Known Allergies Allergy Verified 03/04/23 22:17 Consultations 07/21/23 16:36 ED Decision to Admit Stat Ordered Studies 07/21/23 13:12 CT abd pelvis IV con only Stat Hospital Course (1) Nausea and vomiting: (2) Syncope: (3) GERD (gastroesophageal reflux disease): (4) MURALI (acute kidney injury): (5) Hyponatremia: (6) History of alcohol use: (7) History of gastric bypass: (8) Depression: (9) Acute dehydration: Plan Gastritis -Nausea/vomiting x 3 days leading to yncopal episode the morning of 07/21 on the toilet -Hypotensive at 72/59 on arrival; likely secondary to GI losses and dehydration from a viral gastroenteritis. -Abdomen/pelvic CT without acute abnormalities or evidence of bowel obstruction -COVID, flu, RSV negative -Lactate wnl -Stool cultures negative -Improved with fluid repletion, supportive care Urinary tract infection with gram-negative bacteremia Urine cultures and blood cultures growing Klebsiella pneumonia -Blood culture sensitivities: Resistance to Unasyn and cefazolin, intermediate to Augmentin -Urine culture sensitivities: Resistance Unasyn and intermittent to Zosyn -Bacteremia most likely due to urinary source secondary to deconditioning and urinary stasis causing UTI -Ceftriaxone transitioned to cefdinir on discharge to complete 7 day course of antibiotics Deconditioning -Patient is frail and been having issues with walking recently. May be multifactorial given history of alcoholism. -PT/OT evaluation- recommend return home with home health/PT Syncope -On 07/21 as above -EKG NSR at 94 bpm; QTc 452 -Likely due to dehydration- vasovagal/orthostatic GERD (gastroesophageal reflux disease): -Continued home pantoprazole MURALI (resolved) -BUN 41, creatinine 1.58 (baseline 0.80), EGFR 33.5 -Likely secondary to hypovolemia/GI losses, kidney hypoperfusion -BUN/creatinine elevated at ratio 25.9 -Improved with fluid repletion -Held lisinopril, resumed on discharge Hyponatremia: -Mild hyponatremia at 132 at time of admission, now resolved History of alcohol use: -Hx of alcohol abuse and alcohol withdrawal; [facility] admission in October 2022 where she was reportedly drinking 8-10 rum drinks daily -Patient reports she had a rum and coke last night on 07/20; she reports 3-4 drinks per week -Ethyl alcohol level WNL -Lipase WNL at 55 -AWSS protocol as needed, no withdrawal noted during stay #History of gastric bypass: -In 1999, noted history #Depression: -Continued hydroxyzine, sertraline, quetiapine Total Time Total Time Spent Total Time Spent (In Minutes): 30 Discharge Plan Discharge Items Patient Disposition: Home - Home Health Services Reason For Visit: VOMITING, SYNCOPE Discharge Diagnosis: Urinary tract infection with bacteremia Condition on Discharge: Fair Non-emergency contact: Primary Care Provider Call non-emergency contact if: your symptoms worsen Follow-up/Referrals: Emily Diehl PA-C [Primary Care Provider] - Diet: Regular Addtl Attending Provider Instructions: You were admitted to the hospital for dehydration from vomiting. Your symptoms were due to a urinary tract infection which spread to the bloodstream. You were treated with IV fluids and antibiotics. A discharge summary will be sent to your primary care physician to ensure continuity of care. Please bring this discharge summary with you to your next office appointment so that your provider can review it at that time. Follow-up appointments: - Make a follow-up appointment with your PCP within the next week. It is very important that you follow up with them shortly after discharge from the hospital. Medications: Your medication list has been reviewed and reconciled upon discharge to ensure accuracy and continuity of care. An updated list of all your medications is included with your hospital discharge paperwork. Please review this list closely, and make note of any changes. -We sent a new medication called cefdinir to the pharmacy. This is an antibiotic you will take to complete treatment for your urinary tract infection. Take cefdinir 300 mg twice daily about 12 hours apart for the next 4 days (starting tomorrow morning). Take your medications as instructed; do not skip a dose of your medicines. Make sure all of your doctors know every medicine you are taking (including [id number] medicines, vitamins, and supplements). Call your primary care provider before taking any new medicines (including [id number] medicines, vitamins, and supplements), because some of these may interact with your current medications, or may make your symptoms worse. Tell your primary care provider if you cannot afford your medications. CONTACT YOUR PRIMARY CARE PROVIDER if you experience any of the following: -Burning urination -Urinating more frequently/less frequently -Abdominal pain -Nausea/vomiting - Difficulty following your treatment plan, or difficulty taking medications CALL 911 OR GO TO THE EMERGENCY DEPARTMENT if you experience any of the following: - Sudden, severe abdominal pain or nausea/vomiting - Severe chest pain, or chest pain that radiates (moves) to your jaw or arm - Sudden, severe shortness of breath or difficulty breathing Thank you for allowing us to participate in your care Pending Studies at Discharge: No Stand-Alone Forms: [facility] Medications and DC Order Prescriptions: No Action lisinopril 10 mg Tablet 20 mg PO HS Hold Instructions: Until PCP follow up Rx Instructions: Patient states she takes 20mg by mouth daily but is currently on HOLD alendronate 70 mg tablet 70 mg PO Q7D Rx Instructions: Mondays thiamine HCl (vitamin B1) 100 mg tablet 100 mg PO DAILY famotidine 20 mg tablet 20 mg PO DAILY pantoprazole 40 mg tablet,delayed release (DR/EC) 40 mg PO DAILY ondansetron 4 mg tablet,disintegrating 4 mg PO Q6H PRN (Reason: nausea and vomiting) Qty: 14 0RF quetiapine 100 mg tablet 50 mg PO HS hydroxyzine pamoate 100 mg Capsule 100 mg PO HS Rx Instructions: Patient states she takes 100mg along with Hydroxyzine 50mg every night at bedtime sertraline [Zoloft] 100 mg Tablet 100 mg PO HS hydrochlorothiazide 25 mg tablet 25 mg PO QAM PRN (Reason: Edema) Hold Instructions: Until PCP follow up valacyclovir 1 gram Tablet 0 mg PO DIRECTED PRN (Reason: ..) PNV [id number] fumarate-FA [] 28 mg iron- 800 mcg Tablet 1 tab PO DAILY Rx Instructions: unknown strength Admission Data Admit Date/Time: 07/23/23 16:28 Attending Provider: George Snyder Admit Provider: Kendall Dill Primary Care Provider: Emily Diehl Other Providers: Kendall Dill Resident Activity Tracking Resident Involvement: Resident Care Provided Care Provided: Adult Hospital Medicine
--- NOTE | 2023-07-25 11:56 | Hospitalist Progress Note ---
Date of Service July 25, 2023 Assessment & Plan (1) Nausea and vomiting: (2) Syncope: (3) GERD (gastroesophageal reflux disease): (4) MURALI (acute kidney injury): (5) Hyponatremia: (6) History of alcohol use: (7) History of gastric bypass: (8) Depression: (9) Acute dehydration: Plan Urinary tract infection with gram-negative bacteremia -Urine cultures and blood cultures growing Klebsiella pneumonia -Blood culture sensitivities: Resistance to Unasyn and cefazolin, i ntermediate to Augmentin -Urine culture sensitivities: Resistance Unasyn and intermittent to Zosyn -Bacteremia most likely due to urinary source secondary to deconditioning and urinary stasis causing UTI -Continue ceftriaxone (day 10/11) Gastritis -Nausea/vomiting x 3 days leading to syncopal episode the morning of 07/21 on the toilet -Hypotensive at 72/59 on arrival; likely secondary to GI losses and dehydration from a viral gastroenteritis -Abdomen/pelvic CT without acute abnormalities or evidence of bowel obstruction -COVID, flu, RSV negative -Lactate wnl -Stool cultures negative -Improved with fluid repletion, supportive care Deconditioning -Patient is frail and been having issues with walking recently. May be multifactorial given history of alcoholism. -PT/OT evaluation- recommend return home with home health/PT Syncope -On 07/21 as above -EKG NSR at 94 bpm; QTc 452 -Likely due to dehydration- vasovagal/orthostatic GERD (gastroesophageal reflux disease): -Continue home pantoprazole MURALI (resolved) -BUN 41, creatinine 1.58 (baseline 0.80), EGFR 33.5 -Likely secondary to hypovolemia/GI losses, kidney hypoperfusion -BUN/creatinine elevated at ratio 25.9 -Improved with fluid repletion -Lisinopril held, will resume on discharge Hyponatremia: -Mild hyponatremia at 132 at time of admission, now resolved History of alcohol use: -Hx of alcohol abuse and alcohol withdrawal; [facility] admission in October 2022 where she was reportedly drinking 8-10 rum drinks daily -Patient reports she had a rum and coke last night on 07/20; she reports 3-4 drinks per week -Ethyl alcohol level WNL -Lipase WNL at 55 -AWSS protocol as needed, no withdrawal noted during stay History of gastric bypass: -In 1999, noted history Depression: -Continue hydroxyzine, sertraline, quetiapine FENGI: Regular Code status: Full DVT prophylaxis: Heparin SQ BID Isolation: None Unit: Medical/surgical Disposition planning: Anticipate discharge to home Admission and Anticipated Discharge Date Admission Date: July 23, 2023 Supervising Physician Co-Signing Physician Notes I personally examined the patient and verified all galo points of history and exam, discussed case, and agree with decision making with Dr Renner Only real complaint is still feeling weak, although she notes she has been able to get to and from the bathroom a bit easier. Discussed the unfortunate reality that with how she is performing with PT/OT, it is exceedingly unlikely to be able to get insurance approval for rehaband without insurance approval, and less she would be able to pay [id number], we would not really be able to get rehab to accept her. She expressed understanding, and feels like she could go home with outpatient therapy, but does not quite feel confident to do that yet. vitals noted nad heent nc at mmm breathing unlabored no accessory muscles good effort skin no rashes no pallor or icterus GNR bacteremia - present on admission - with hindsight - UTI -> subsequent bacteremia was definitely contributing her her presentation. on ceftriaxone, doing better dehydration/weakness/MURALI - poor PO intake - has had many episodes of gastritis/EtOH mediated n/v, etc - but as above, while initially suspicious of a viral infection, her blood cultures suggest UTI -> subsequent bacteremia as the cause. improved DVT proph - heparin SQ EtOH abuse - thiamine, folate weakness/deconditioning - PT/OT eval and treat, while she would prefer to go to rehab, and I think her preference is quite reasonable, she is performing well enough with PT/OT that rehab approval is almost impossible. After discussion, plan will be home and outpatient therapy, but we will have her walk the halls today and function more independently here in the hospital (discussed with nursing) so that she can build confidence that she will do okay once she is home. Subjective Acute events overnight- none. Pt examined at bedside. No acute complaints. Review of Systems Review of Systems: See HPI above Physical Exam Physical Exam: Constitutional: well-appearing, no acute distress HEENT: NCAT, no conjunctival injection CV: regular rhythm, no murmur appreciated, extremities well-perfused, no LE edema Resp: CTABL, no wheezes/rales/rhonchi appreciated, no increased work of breathing GI: soft, nondistended, non-tender, BS normoactive MSK: no gross deformities appreciated Skin: warm, dry, no rash appreciated Neuro: alert, oriented, no focal neurologic deficit appreciated Results & Data Results & Data Vital Signs (Past 12 Hours) Vital Signs Temp Pulse Resp BP Pulse Ox O2 Del Method 07/25/23 08:12 118/79 07/25/23 07:35 36.5 C 92 H 16 94/62 L 98 Room Air Resident Activity Tracking Resident Involvement: Resident Care Provided Care Provided: Adult Hospital Medicine (2) Syncope Syncope type: unspecified Qualified Code(s): R55 - Syncope and collapse
--- NOTE | 2023-07-25 16:31 | Billing Data ---
Date of Service July 25, 2023 Coding Level of Care Code 00814 SUB INP/OBS CARE
[2023-07-25] MEDS: SERTRALINE HCL 100 MG TABLET PO SCH (20:59)
[2023-07-25] MEDS: QUEtiapine FUMARATE 25 MG TABLET PO SCH (22:48)
[2023-07-25] MEDS: hydrOXYzine HCl 25 MG TAB PO SCH (22:48)
--- NOTE | 2023-07-26 06:52 | Hospitalist Progress Note ---
Date of Service July 26, 2023 Assessment & Plan (1) Nausea and vomiting: (2) Syncope: (3) GERD (gastroesophageal reflux disease): (4) MURALI (acute kidney injury): (5) Hyponatremia: (6) History of alcohol use: (7) History of gastric bypass: (8) Depression: (9) Acute dehydration: Admission and Anticipated Discharge Date Admission Date: July 23, 2023 Subjective Patient OOB to chair, seated comfortably this morning on arrival. Denies any acute events overnight. She would like to have physical therapy at home starting next week. However, she would like to go home today. Review of Systems Review of Systems: All systems reviewed & are unremarkable except as noted in HPI & below Physical Exam Physical Exam: General: No acute distress HEENT: PERRLA. Normal conjunctiva, anicteric sclera. Oropharynx normal. Respiratory: Normal respiratory effort, CTABL. Cardiovascular: RRR without murmurs, gallops, or rubs. No pedal edema. GI: Nontender x4 quadrants Neuro: Alert and oriented x3. Results & Data Results & Data Vital Signs (Past 12 Hours) Vital Signs Temp Pulse Resp BP Pulse Ox O2 Del Method 07/25/23 20:30 37.2 C 84 16 107/72 98 Room Air 07/25/23 19:45 Room Air Resident Activity Tracking Resident Involvement: Resident Care Provided Care Provided: Adult Hospital Medicine (2) Syncope Syncope type: unspecified Qualified Code(s): R55 - Syncope and collapse (8) Depression Depression Type: unspecified Qualified Code(s): F32.A - Depression, unspecified
[2023-07-26] MEDS: HEPARIN SOD 5,000 UNIT/0.5 ML VIAL SQ SCH (07:21)
[2023-07-26] MEDS: FOLIC ACID 1 MG TAB PO SCH (07:47)
[2023-07-26] MEDS: cefTRIAXone SODIUM 2,000 MG in DEXTROSE 5 % MINI-B 50 ML IV SCH (07:48)
[2023-07-26] MEDS: THIAMINE HCL 100 MG TAB PO SCH (07:48)
[2023-07-26] MEDS ORDERED: CEFDINIR 300 MG CAP PO SCH (09:00)
--- NOTE | 2023-07-26 10:12 | Discharge Summary ---
Date of Service July 26, 2023 Admission Exam Per Admitting Provider General: no acute distress; nausea; non-toxic appearing; well-nourished; cooperative HEENT: normocephalic, atraumatic; no scleral icterus; PERRLA w/ EOMs intact; moist mucus membrane; vision and hearing grossly intact Neck: supple; no lymphadenopathy; trachea midline Skin: warm, dry without signs of tenting; no cyanosis; no rashes, bruising, lesions, or erythema noted CV: chest wall NTP; RRR; S1/S2 normal; no murmurs/rubs/gallops; bounding pulses intact and symmetric at radial, DP, and PT Lungs: no acute respiratory distress; symmetrical chest wall expansion; clear breath sounds across all lung dotson w/o adventitious sounds; no wheezing ABD: Soft; LUQ TTP; RUQ, RLQ, LLQ NTP; negative McBurney's point tenderness; BS present; no rebound/guarding; no distention; negative CVA tenderness; no rashes or bruising on the abdomen or back MSK: no tics or fasciculations; no edema noted in the LEs b/l, nonerythematous; lower extremities TTP Neuro: A&Ox3; normal mood and affect; fluent speech; no focal deficits; s ensation grossly intact in the LEs B/L Principal Diagnosis UTI bacteremia Discharge Exam General: No acute distress HEENT: PERRLA. Normal conjunctiva, anicteric sclera. Oropharynx normal. Respiratory: Normal respiratory effort, CTABL. Cardiovascular: RRR without murmurs, gallops, or rubs. No pedal edema. GI: Nontender x4 quadrants Neuro: Alert and oriented x3. Discharge Data Allergies Allergy/AdvReac Type Severity Reaction Status Date / Time No Known Allergies Allergy Verified 03/04/23 22:17 Consultations 07/21/23 16:36 ED Decision to Admit Stat Ordered Studies 07/21/23 13:12 CT abd pelvis IV con only Stat Hospital Course (1) Urinary tract infection due to Klebsiella species: 67 F who presented with nausea, vomiting x 3 days, syncopal episode on day of admission. Admitted for acute management of UTI with gram-negative bacteremia (Klebsiella). Now stable, awaiting discharge to home. Urinary Tract Infection with Gram-Negative Bacteremia -Urine cultures and blood cultures growing Klebsiella pneumonia -Blood culture sensitivities: Resistance to Unasyn and cefazolin, intermediate to Augmentin -Urine culture sensitivities: Resistance Unasyn and intermittent to Zosyn -Bacteremia most likely due to urinary source secondary to deconditioning and urinary stasis causing UTI -IV ceftriaxone 2 g every 24 hours x 4 days. -Discharged home on p.o. cefdinir 300 mg twice daily x 3 days (total antibiotic course = 7 days) Gastritis -Nausea/vomiting x 3 days leading to syncopal episode the morning of 07/21 on the toilet -Hypotensive at 72/59 on arrival; likely secondary to GI losses and dehydration from a viral gastroenteritis -Abdomen/pelvic CT without acute abnormalities or evidence of bowel obstruction -COVID, flu, RSV negative -Lactate wnl -Stool cultures negative -Improved with fluid repletion, supportive care Deconditioning -Patient is frail and been having issues with walking recently. May be multifactorial given history of alcoholism. -PT/OT evaluation: recommended d/c home with home health/PT (PT to be scheduled at patient's convenience). * Paper order for physical therapy signed and given to patient prior to discharge. Syncope -On 07/21 as above -EKG NSR at 94 bpm; QTc 452 -Likely due to dehydration- vasovagal/orthostatic Gastroesophageal Reflux Disease (GERD) -Continue home pantoprazole MURALI (resolved) -BUN 41, creatinine 1.58 (baseline 0.80), EGFR 33.5 -Likely secondary to hypovolemia/GI losses, kidney hypoperfusion -BUN/creatinine elevated at ratio 25.9 -Improved with fluid repletion -Lisinopril held, will resume on discharge Hyponatremia (resolved) -Mild hyponatremia at 132 at time of admission. -Improved to 135 prior to discharge. Consider resolved History of alcohol use -Hx of alcohol abuse and alcohol withdrawal admitted to [facility] in October 2022 (was reportedly drinking 8-10 rum drinks daily) -Noted in admission note that she had had a "rum and coke" the night prior to admission (07/20); admitted to 3-4 drinks weekly -Ethyl alcohol level within normal limits -Lipase within normal limits (55) -Instituted AWSS protocol as needed no signs of withdrawal seen throughout admission Depression -Continue hydroxyzine, sertraline, quetiapine (2) Nausea and vomiting: (3) Syncope: (4) GERD (gastroesophageal reflux disease): (5) MURALI (acute kidney injury): (6) Hyponatremia: (7) History of alcohol use: (8) History of gastric bypass: (9) Depression: (10) Acute dehydration: Total Time Total Time Spent Total Time Spent (In Minutes): Please see attending attestation. Discharge Plan Discharge Items Patient Disposition: Home - Home Health Services Reason For Visit: VOMITING, SYNCOPE Discharge Diagnosis: Urinary tract infection with bacteremia Condition on Discharge: Good Activity: Per Instructions section Non-emergency contact: Primary Care Provider Call non-emergency contact if: your symptoms worsen Follow-up/Referrals: Emily Diehl PA-C [Primary Care Provider] - Diet: Regular Addtl Attending Provider Instructions: Dear Pretty, You were admitted to the hospital for dehydration from vomiting. We determined that your symptoms were caused by an infection of your urinary tract that spread to the bloodstream. You were treated with IV fluids and antibiotics until you improved. Now that you have improved, we feel that you can now be safely discharged home. A copy of your discharge summary will be sent to your primary care provider to ensure continuity of care. Please bring this discharge summary with you to your next office appointment so that your provider can review it at that time. 1. Make a follow-up appointment with your PCP, Sendy Diehl PA-C, within the next week. It is very important that you follow up with them soon after your discharge. If you have been unable to contact your clinic to schedule an appointment within the next week, you may also contact [facility] at [phone] to speak to the outpatient operations scheduler. The outpatient operations scheduler will make an outpatient appointment for you with one of our outpatient providers. 2. We sent a new antibiotic medication called ciprofloxacin to your pharmacy. Starting tomorrow morning, please take ciprofloxacin 500 mg twice daily for 3 more days. Your last dose should be on 07/29/2023 in the evening. Do not skip a dose, as this may reduce the efficacy of this treatment. Please take this medication with food, as it may cause upset stomach and/or diarrhea. 3. We held your blood pressure medication, lisinopril 20 mg, on admission because your blood pressures were well-controlled. As your blood pressures remained well-controlled and stable during your admission without your medications, we are holding them at discharge until you have been seen by your PCP. Do not restart these medications before your follow-up appointment with your PCP. The fact that we held these medications will also be noted in the discharge summary sent to your PCP. 4. We made no changes to your other medications. Please continue to take those medications as previously instructed, unless otherwise directed to by your primary care provider. If you are unable to afford your medications, or have any questions about medication interactions, please do not hesitate to reach out to your primary care provider. 5. In the interim, you should contact your primary care provider if you begin to experience the following: -Burning urination -Increased urinary frequency (urinating more often) -Decreased urinary frequency (urinating less often) -Abdominal pain -Nausea/vomiting -Difficulty taking your prescribed medications 6. You should go to the emergency department (or call 911 if unable to) if you begin experiencing any of the following symptoms: -Sudden, severe abdominal pain -Sudden, nausea or vomiting -Severe chest pain/pressure, or chest pain that travels to your jaw or arm -Sudden, severe shortness of breath or progressively worsening difficulty breathing It has been our pleasure to care for you at [facility]. If you have any questions or concerns about your care, you may contact the hospital at [phone]. Pending Studies at Discharge: No Stand-Alone Forms: My [facility] Medications and DC Order Prescriptions: New ciprofloxacin HCl 500 mg tablet 500 mg PO Q12H 3 Days Qty: 6 0RF Continued alendronate 70 mg tablet 70 mg PO Q7D Rx Instructions: Mondays thiamine HCl (vitamin B1) 100 mg tablet 100 mg PO DAILY famotidine 20 mg tablet 20 mg PO DAILY pantoprazole 40 mg tablet,delayed release (DR/EC) 40 mg PO DAILY ondansetron 4 mg tablet,disintegrating 4 mg PO Q6H PRN (Reason: nausea and vomiting) Qty: 14 0RF quetiapine 100 mg tablet 50 mg PO HS hydroxyzine pamoate 100 mg Capsule 100 mg PO HS Rx Instructions: Patient states she takes 100mg along with Hydroxyzine 50mg every night at bedtime sertraline [Zoloft] 100 mg Tablet 100 mg PO HS hydrochlorothiazide 25 mg tablet 25 mg PO QAM PRN (Reason: Edema) Hold Instructions: Until PCP follow up valacyclovir 1 gram Tablet 0 mg PO DIRECTED PRN (Reason: ..) PNV cmb#95-ferrous fumarate-FA [] 28 mg iron- 800 mcg Tablet 1 tab PO DAILY Rx Instructions: unknown strength Held lisinopril 10 mg Tablet 20 mg PO HS Hold Instructions: Until PCP follow up Rx Instructions: Patient states she takes 20mg by mouth daily but is currently on HOLD Discharge Orders: Discharge Order (Routine); Ordered 07/26/23 Ordered By: Sarah De La O/Other Patient Handouts: Cefdinir Oral Capsule, Urinary Tract Infections in Women Admission Data Admit Date/Time: 07/23/23 16:28 Attending Provider: George Snyder Admit Provider: Kendall Dill Primary Care Provider: Emily Diehl Other Providers: Kendall Dill Other Interventions: Discharge Summary Assessment (RN) Last Done: 07/26/23 12:21 Supervising Physician Co-Signing Physician Notes I personally examined the patient and verified all galo points of history and exam, discussed case, and agree with decision making with Dr Prajapati feeldavid up to going home. vitals noted nad heent nc at mmm breathing unlabored no accessory muscles good effort skin no rashes no pallor or icterus GNR bacteremia - present on admission - with hindsight - UTI -> subsequent bacteremia was definitely contributing her her presentation. improved on ceftriaxone. finish out Rx w PO abx dehydration/weakness/MURALI - poor PO intake - has had many episodes of gastritis/EtOH mediated n/v, etc - but as above, while initially suspicious of a viral infection, her blood cultures suggest UTI -> subsequent bacteremia as the cause. improved DVT proph - heparin SQ EtOH abuse - thiamine, folate weakness/deconditioning - outpt PT
--- NOTE | 2023-07-26 16:51 | Billing Data ---
Date of Service July 26, 2023 Coding Level of Care Code 33441 IN/OBS DISCH 30 MIN/LESS
== END 2023-07-26 13:39 | disposition home or self-care (01) | DRG 872 ==
LOC: EDINP 12:30 → ED 12:30 → SUATTDRO 17:41 → EDINP 18:38 → 2N 07-22 16:03 → 3N 07-23 23:51

== ENCOUNTER 2023-10-24 07:04 | Inpatient (IN) ==
[2023-10-24] MEDS: SODIUM CHLORIDE 0.9% 500 ML IV ONE (07:45)
[2023-10-24 08:22] LABS: Basophils # (auto) 0.04 K/uL (0.00-0.20); Basophils % (auto) 0.7 %; Eosinophils # (auto) 0.16 K/uL (0.00-0.50); Eosinophils % (auto) 2.9 %; Hematocrit (blood only) 38.6 % (37.0-47.0); Hemoglobin 12.1 g/dl (12.0-16.0); Immature Granulocytes # (auto) 0.04 K/uL (0.01-0.20); Immature Granulocytes % (auto) 0.7 %; Lymphocytes # (auto) 0.94 K/uL (1.20-3.40); Lymphocytes % (auto) 16.9 %; Mean Corpuscular Hemoglobin 31.1 pg (25.0-34.0); Mean Corpuscular Hgb Conc 31.3 g/dL (32.0-36.0); Mean Corpuscular Volume 99.2 fL (80.0-100.0); Mean Platelet Volume 9.4 fL (9.4-12.4); Monocytes # (auto) 0.44 K/uL (0.11-0.59); Monocytes % (auto) 7.9 %; Neutrophils # (auto) 3.93 K/uL (1.40-6.50); Neutrophils % (auto) 70.9 %; Platelet Count 342 K/uL (130-400); RDW Coefficient of Variation 17.6 % (11.5-14.5); RDW Standard Deviation 64.3 fL (36.4-46.3); Red Blood Count 3.89 M/uL (4.20-5.40); White Blood Count 5.55 K/ul (4.8-10.8)
[2023-10-24 08:34] LABS: Albumin Globulin Ratio 1.4 (0.9-2); Albumin Level 4.2 gm/dl (3.4-5.0); BUN Creatinine Ratio 25.6 (10-20); Bilirubin,Total 0.7 mg/dl (0.2-1.0); Calcium 8.2 mg/dl (8.6-10.3); Creatinine Clr Calc Pharmacy 65.5 ml/min; Est GFR (African American) 85.2 ml/min; Est GFR (Non-African American) 73.5 ml/min; Globulin 2.9 gm/dl (2.5-4.0); Magnesium 2.1 mg/dl (1.7-2.4); Phosphorus 5.8 mg/dl (2.5-4.9); Potassium 4.8 mmol/L (3.5-5.1); Total Protein 7.1 gm/dl (6.0-8.3)
[2023-10-24] MEDS: MULTI-VITAMIN INFUSION 10 ML, THIAMINE HCL 100 MG, FOLIC ACID 1 MG in SODIUM CHLORIDE 0... IV ONE (08:47)
[2023-10-24] MEDS ORDERED: LORazepam 2 MG in SYRINGE 1 ML IV PRN (10:02)
[2023-10-24] MEDS ORDERED: LORazepam 3 MG in SYRINGE 1.5 ML IV PRN (10:02)
[2023-10-24] MEDS ORDERED: Ativan IV Alcohol Withdrawal--Active Protocol IV PRN (10:02)
[2023-10-24] MEDS ORDERED: LORazepam 1 MG in SYRINGE 0.5 ML IV PRN (10:02)
--- NOTE | 2023-10-24 10:14 | History & Physical Report ---
Date of Service October 24, 2023 Assessment & Plan (1) Alcohol withdrawal: Plan: Slurred speech, bilateral lower extremity muscle weakness, and fatigue the morning of 10/23 No facial droop or unilateral deficits, per patient Patient drinks 4 drinks/day; rum and coke Last drink the evening of 10/22 Patient denies prior hx of alcohol withdrawal seizures She has not eaten any solid food in 2-3 days On EMS arrival, patient's BSG was reported to be 22mg/dL Medical alcohol level 39.7 on arrival Salicylate level negative AWSS protocol with Ativan as needed Thiamine 100mg p.o. daily Folate 1 mg p.o. daily Continuous telemetry monitoring Zofran as needed for nausea/vomiting; QTc 483 PT/OT consulted A.m. CBC, CMP, mag, Phos (2) Hypoglycemia: Plan: Secondary to poor oral intake, and alcohol use BSG q6h for now IVF resuscitation with D5LR at 125mL/hr x 2 Total fasting insulin / C-peptide level ordered, pending (3) Starvation ketoacidosis: Plan: UA +2 ketones Anion gap elevated at 27 Lactate elevated at 2.9, repeat pending Monitor for correction with fluids (4) Anorexia: Plan: Patient reports she has no desire to eat, and that food tastes like "cardboard" Dietitian consulted (5) Alcohol use disorder: Plan: Alcohol rehab x 2 Patient is amenable to rehab on discharge, and would like to speak to someone while inpatient to discuss available options Case management consult No visual/auditory hallucinations at time of admission Monitor for DTs (while she denies history of DTs, patient does note she started seeing the wall "move" when hospitalized around 4-5 years ago) (6) Acute dehydration: Plan: BUN/creatinine ratio elevated at 25.6 IVF resuscitation (as above) (7) Depression: Plan: Continue Zoloft (8) History of gastric bypass: Plan: In 1999 (9) Poor nutrition: Plan Disposition: Admit to PCU telemetry Full code Regular diet, dietitian consulted VTE PPx: Heparin 5000u SQ q12h History of Present Illness Chief Complaint: Hypoglycemia, slurred speech, bilateral LE muscle weakness Primary Care Provider: Emily Fazal Olsen is a 68-year-old female with PMH of alcohol abuse, anorexia, gastric bypass, syncope, GERD, and esophageal dysmotility. She presented for slurred speech, lower extremity weakness, and inability to get a bed on 10/23. Patient reports she was drinking last night, and was able to get herself to the bathroom twice last night; however, she woke up around 5 AM, and was unable to move her legs. She lives by herself. She reports she had around 4 drinks last night; rum and Cokes. She reports that she averages 4 drinks daily. Patient called the ambulance in bed, and when they arrived they noted that her glucose was at 22mg/dL. Patient denies history of seizures. She does note that she has a history of alcohol withdrawal tremors, but she denies being hospitalized for alcohol withdrawal specifically in the past. She does note that she had 1 admission where she saw "truong moving" for years ago, but denies any auditory or visual hallucinations when trying to come off alcohol in the past. She has been drinking at least 4 drinks per day for the past 6-7 years. She has tried coming off in the past, but has only gone about 2 weeks without alcohol. When she called EMS this morning, she did note that she had slurred speech and was barely able to communicate with 911; however, she denies facial droop or unilateral deficits (she notes that both legs are weak, and that 1 was not weaker than the other). No recent falls, injuries, or trauma to the head or neck. Patient denies smoking, tobacco use, and recreational drug use. She reports that she has not had any solid food in the past 2-3 days. When asked why she has not been eating, she reports she has no desire to eat. It does not have to do with nausea/vomiting. Patient does note that she has a history of anorexia, and recently she reports that she "hates food" and that it tasted like "cardboard". Patient last took her regular medications around 2 days ago. She does note that she has naltrexone at home if needed. Of note, the patient was recently on a [place] cruise with her sister in [place] and had to be hospitalized on October 09 for slurred speech and inability to talk/walk. At the hospital, the working diagnosis was for a stroke. However, patient has no memory of her hospitalization, and is unsure whether or not a stroke was actually confirmed. Patient is hypertensive at 152/83 at time of admission; vitals otherwise stable. ED course: Banana bag x 1 NSS 500 mL IV Lorazepam 2 mg IV ROS: Patient endorses productive cough (ongoing), slurred speech, fatigue, nausea, vomiting (which patient attributes to not eating; vomits up plegm), and weakness in both legs bilaterally. Patient denies fever, chills, nightsweats, PARNELL, facial droop, dizziness, lightheadedness, confusion last night, visual/auditory hallucinations, changes in vision, fainting, falling, chest pain, chest palpitations, SOB, hemoptysis, pleuritic CP, abdominal pain, diarrhea, constipation, change in urinary/bowel habits, blood in the urine/stool, or numbness/tingling in the arms or legs. Allergies Allergy/AdvReac Type Severity Reaction Status Date / Time No Known Allergies Allergy Verified 10/24/23 11:18 Home Medications Medication Instructions Recorded Confirmed Type quetiapine 100 mg tablet 0 mg PO HS 10/22/22 10/24/23 History hydroxyzine pamoate 100 mg capsule 100 mg PO HS 01/07/23 10/24/23 History sertraline 100 mg tablet (Zoloft) 100 mg PO HS 01/07/23 10/24/23 History lisinopril 10 mg tablet 20 mg PO HS 01/31/23 10/24/23 History alendronate 70 mg tablet 70 mg PO Q7D 04/26/23 10/24/23 History ondansetron 4 mg disintegrating 4 mg PO Q6H PRN nausea and 04/26/23 10/24/23 Rx tablet vomiting #14 tabs vit no.95-ferrous 1 tab PO DAILY 07/21/23 10/24/23 History fumarate 28 mg-folic acid 800 mcg tablet () valacyclovir 1 gram tablet 1,000 mg PO DIRECTED PRN Cold 07/21/23 10/24/23 History Sores Past Med/Surg History Medical History Osteoarthritis Acid reflux Anemia History of depression Insomnia Hypertension Surgical History H/O gastric bypass History of section x 1 History of open reduction and internal fixation (ORIF) procedure right wrist--hardware in place History of total left hip replacement History of colonoscopy History of esophagogastroduodenoscopy (EGD) History of wisdom tooth extraction History of cholecystectomy H/O: hysterectomy Family History Other No family history of adverse response to anesthesia Social History Smoking Status: Never smoker Second Hand Exposure: Yes (as a child); Do You Dip or Chew Tobacco: No; Hx Alcohol Use: Yes Alcohol type: hard liquor Preferred Language: Scottish Communication Ability: Effective Medical Housekeeper Required: No Beliefs That Will Affect Care: None Current Living Situation: Alone Feels Safe at Home: Yes Assistive Devices: Glasses and Walker Review of Systems Review of Systems: See HPI above Physical Exam Physical Exam: General: no acute distress; anxious; non-toxic appearing; cooperative; 99% SpO2 on RA HEENT: normocephalic, atraumatic; no scleral icterus; PERRLA; moist mucus membrane; vision and hearing grossly intact Neck: supple; no lymphadenopathy; trachea midline Skin: warm, dry without signs of tenting; no cyanosis; no rashes, bruising, lesions, or erythema noted CV: chest wall NTP; RRR; S1/S2 normal; no murmurs/rubs/gallops; pulses intact and symmetric at radial, DP, and PT Lungs: no acute respiratory distress; symmetrical chest wall expansion; clear breath sounds across all lung dotson w/o adventitious sounds; no wheezing ABD: Soft, NTP; BS present; no rebound/guarding; no distention MSK: no tics or fasciculations; no edema noted in the LEs b/l, nonerythematous; 5/5 advertising account representative strength bilaterally; patient demonstrates ability to lift legs at the hip bilaterally with 5/5 strength Neuro: A&Ox3; bilateral resting hand tremor; normal mood and affect; fluent speech, not slurred; no facial droop; no focal deficits; negative pronator drift; sensation grossly intact in the face/UEs/LEs b/l Results & Data Results & Data Vital Signs (Past 12 Hours) Vital Signs Temp Pulse Resp BP Pulse Ox O2 Del Method 10/24/23 10:01 90 22 152/83 H 99 10/24/23 09:57 36.7 C 10/24/23 08:25 82 10/24/23 08:00 17 157/83 H 100 10/24/23 07:30 84 16 175/107 H 98 10/24/23 07:25 36.4 C L 89 22 167/87 H 95 Room Air Laboratory Results Abnormal lab results 10/24/23 10/24/23 Range/Units 07:08 07:35 RBC 3.89 L (4.20-5.40) M/uL MCHC 31.3 L (32.0-36.0) g/dL RDW Std Deviation 64.3 H (36.4-46.3) fL RDW Coeff of Cate 17.6 H (11.5-14.5) % Lymph # (Auto) 0.94 L (1.20-3.40) K/uL Chloride 96 L (98-107) mmol/L Carbon Dioxide 14 L (21-32) mmol/L Anion Gap 27 H (3-11) BUN/Creatinine Ratio 25.6 H (10-20) Glucose 116 H (70-99(Fasting)) mg/dl POC Glucose 125 H (70-99) mg/dl Calcium 8.2 L (8.6-10.3) mg/dl Phosphorus 5.8 H (2.5-4.9) mg/dl AST 118 H (13-39) U/L Alkaline Phosphatase 142 H (34-104) U/L ECG Additional Comments: ECG revealed NSR at 81 bpm; QTc 483 Code Status & VTE Plan Code Status Full code VTE Prophylaxis Plan VTE Prophylaxis will be ordered: Yes PG Care Time/CCT Total # of Minutes Spent Total Time Spent with Patient: Total time spent is greater than 50% in coordination of care (as documented) at patient's floor/unit and/or counseling patient: [place] [address] INT INP/OBS CARE 3/75MIN Patient Type Established History Comprehensive Exam Comprehensive Medical Decision Making High Complexity Diagnoses Alcohol withdrawal F10.930 Complication of substance-induced condition: uncomplicated Hypoglycemia E16.2 Starvation ketoacidosis T73.0XXA; E87.29 Anorexia R63.0 Alcohol use disorder F10.90 Acute dehydration E86.0 Depression, unspecified depression type F32.A Depression Type: unspecified History of gastric bypass Z98.84 Poor nutrition E63.9 (1) Alcohol withdrawal Complication of substance-induced condition: uncomplicated Qualified Code(s): F10.930 - Alcohol use, unspecified with withdrawal, uncomplicated (7) Depression Depression Type: unspecified Qualified Code(s): F32.A - Depression, unspecified
[2023-10-24 10:28] LABS: Appearance Urine Clear (Clear); Bilirubin Urine Negative (Negative); Blood Urine Negative (Negative); Color Urine Yellow; Glucose Urine UA Negative (Negative); Ketones Urine 2+ (Negative); Leukocyte Esterase Urine Negative (Negative); Nitrite Urine Negative (Negative); Protein Urine Negative (Negative); Specific Gravity Urine 1.014 (1.000-1.030); Urobilinogen Urine Negative (Negative); pH Urine 5.5 (4.5-7.5)
[2023-10-24] MEDS: LORazepam 1 MG/1 ML SYR ED Inj Use IV STA (10:59)
[2023-10-24] MEDS: FAMOTIDINE 20MG IV PUSH 20 MG/5 ML SYR IV STA (11:39)
[2023-10-24] MEDS: D5W AND LACTATED RINGERS 1,000 ML IV SCH (12:18)
[2023-10-24 15:24] LABS: BUN Creatinine Ratio 25.3 (10-20); Calcium 7.4 mg/dl (8.6-10.3); Creatinine Clr Calc Pharmacy 68.5 ml/min; Est GFR (African American) 94.9 ml/min; Est GFR (Non-African American) 81.9 ml/min; Potassium 5.4 mmol/L (3.5-5.1)
--- NOTE | 2023-10-24 16:11 | Emergency Department Note ---
Impression & Plan Hypoglycemia, Alcohol use disorder, Poor nutrition ED Provider Note CHIEF COMPLAINT: Weakness, hypoglycemia HISTORY OF PRESENT ILLNESS: This 68-year-old female patient with past medical history of alcohol abuse, gastric bypass, GERD presents emergency department after an episode of hypoglycemia. The patient states she is a "alcoholic" and drinks at least 4 mixed drinks a day. She primarily drinks Rum and Diet Coke. She admits to a poor dietary intake and that she has had episodes of hypoglycemia in the past. Most recently about a month ago she spent the night in a [facility] hospital after having an episode of [place] on [place] cruise ship. She states they did a CAT scan of her head and she was told that this is most likely a stroke. Patient was noted by EMS to have a blood sugar of 22 and was given IV D10. Blood sugar on arrival was 125. REVIEW OF SYSTEMS: A review of systems was performed with positives and pertinent negatives listed in the history of present illness. 10 systems were reviewed and are otherwise negative. ALLERGIES: see below MEDICATIONS: see below PMH: see below SOCIAL HISTORY: see below DDx: Alcohol intoxication, poor dietary food intake, dehydration, electrolyte abnormality, medication effect, infectious etiology such as UTI among others. PHYSICAL EXAM: Vital signs reviewed. General: Well-appearing 68-year-old female, in no significant distress. HEENT: No scleral icterus, PERRLA, neck supple. Dry mucous membranes. Cardiovascular: Regular rate and rhythm, no extra sounds Pulmonary: Clear to auscultation bilaterally, normal work of breathing. Abdomen: Soft, nontender, nondistended, positive bowel sounds. Musculoskeletal: Atraumatic, no peripheral edema. Neurologic: Patient awake alert and oriented x 3, speech is clear Skin: Warm, dry, no rash EMERGENCY DEPARTMENT COURSE/MDM: This patient was evaluated and appeared to be in no significant distress. IV access was obtained and laboratory work was drawn. Patient was hydrated with a banana bag, medicated with IV Ativan for alcohol withdrawal and a high CIWA score. Patient was tolerating p.o. food and fluids quite well. Patient's laboratory work reveals an elevated lactate, likely attributable to her alcohol intake and hypoglycemia. As the patient is not a known diabetic and there is no relatable cause except for poor p.o. intake, and now alcohol withdrawal, patient will be evaluated by the hospitalist service for further management. Patient is aware of the plan and agrees. MONITORING: An order for cardiac monitoring was placed and the patient is noted to be in a normal sinus rhythm at 80 beats per minute. EKG: To my interpretation reveals normal sinus rhythm at [address] segments, possible LVH. QTc of 483. No PVC, no PAC. DISPOSITION: Admit Past Med/Surg History Medical History Osteoarthritis Acid reflux Anemia History of depression Insomnia Hypertension Surgical History H/O gastric bypass History of section x 1 History of open reduction and internal fixation (ORIF) procedure right wrist--hardware in place History of total left hip replacement History of colonoscopy History of esophagogastroduodenoscopy (EGD) History of wisdom tooth extraction History of cholecystectomy H/O: hysterectomy Family History Other No family history of adverse response to anesthesia Social History Smoking Status: Never smoker Second Hand Exposure: Yes (as a child); Do You Dip or Chew Tobacco: No; Hx Alcohol Use: Yes Alcohol type: hard liquor Hx Substance Use: No Preferred Language: Frisian Communication Ability: Effective Blender Required: No Beliefs That Will Affect Care: None Current Living Situation: Alone Feels Safe at Home: Yes Assistive Devices: Cane, Raised Toilet Seat and Walker Allergies Allergies Allergy/AdvReac Type Severity Reaction Status Date / Time No Known Allergies Allergy Verified 10/24/23 11:18 Home Meds Home Medications Medication Instructions Recorded Confirmed quetiapine 100 mg tablet 0 mg PO HS 10/22/22 10/24/23 hydroxyzine pamoate 100 mg capsule 100 mg PO HS 01/07/23 10/24/23 sertraline 100 mg tablet (Zoloft) 100 mg PO HS 01/07/23 10/24/23 lisinopril 10 mg tablet 20 mg PO HS 01/31/23 10/24/23 alendronate 70 mg tablet 70 mg PO Q7D 04/26/23 10/24/23 vit no.95-ferrous 1 tab PO DAILY 07/21/23 10/24/23 fumarate 28 mg-folic acid 800 mcg tablet () valacyclovir 1 gram tablet 1,000 mg PO DIRECTED PRN Cold 07/21/23 10/24/23 Sores Previous Rx's Medication Instructions Recorded ondansetron 4 mg disintegrating 4 mg PO Q6H PRN nausea and 04/26/23 tablet vomiting #14 tabs cholecalciferol (vitamin D3) 125 125 mcg PO QAM #90 tabs 10/26/23 mcg (5,000 unit) tablet folic acid 1 mg tablet 1 mg PO QAM #90 tabs 10/26/23 thiamine HCl (vitamin B1) 100 mg 100 mg PO QAM #90 tabs 10/26/23 tablet Results & Data (ED) Vital Signs Vital Signs - 24 hr 10/24/23 07:25 10/24/23 07:30 10/24/23 08:00 Temperature 36.4 C L Temperature Source Oral Pulse Rate 89 84 Pulse Rate from SpO2 Sensor 84 85 Respiratory Rate 22 16 17 Respiratory Effort / Characteristics Non-Labored Spontaneous Respiratory Depth Normal Respiratory Pattern Regular Blood Pressure 167/87 H 175/107 H 157/83 H Blood Pressure Mean 113 129 107 Pulse Oximetry 95 98 100 Oxygen Delivery Method Room Air Sepsis Recent Fever Within 48 Hours No Sepsis New/Unexplained Change in Mental Status No Sepsis Action Taken by Nursing No Action Required 10/24/23 08:25 10/24/23 09:57 10/24/23 10:01 Temperature 36.7 C Temperature Source Oral Pulse Rate 82 90 Pulse Rate from SpO2 Sensor Respiratory Rate 22 Respiratory Effort / Characteristics Respiratory Depth Respiratory Pattern Blood Pressure 152/83 H Blood Pressure Mean 106 Pulse Oximetry 99 Oxygen Delivery Method Sepsis Recent Fever Within 48 Hours Sepsis New/Unexplained Change in Mental Status Sepsis Action Taken by Longterm Medications Current Medication List: was personally reviewed by me Laboratory Data Attestation: I reviewed the patient's lab results. 10/26/23 06:58 10/26/23 06:58 Lab Results 10/24/23 10/24/23 10/24/23 Range/Units 07:08 07:20 07:35 WBC 5.55 (4.8-10.8) K/ul RBC 3.89 L (4.20-5.40) M/uL Hgb 12.1 (12.0-16.0) g/dl Hct 38.6 (37.0-47.0) % MCV 99.2 (80.0-100.0) fL MCH 31.1 (25.0-34.0) pg MCHC 31.3 L (32.0-36.0) g/dL RDW Std Deviation 64.3 H (36.4-46.3) fL RDW Coeff of Cate 17.6 H (11.5-14.5) % Plt Count 342 (130-400) K/uL MPV 9.4 (9.4-12.4) fL Immature Gran % (Auto) 0.7 % Neut % (Auto) 70.9 % Lymph % (Auto) 16.9 % Toombs % (Auto) 7.9 % Eos % (Auto) 2.9 % Baso % (Auto) 0.7 % Neut # (Auto) 3.93 (1.40-6.50) K/uL Lymph # (Auto) 0.94 L (1.20-3.40) K/uL Toombs # (Auto) 0.44 (0.11-0.59) K/uL Eos # (Auto) 0.16 (0.00-0.50) K/uL Baso # (Auto) 0.04 (0.00-0.20) K/uL Immature Gran # (Auto) 0.04 (0.01-0.20) K/uL Sodium 137 (136-145) mmol/L Potassium 4.8 (3.5-5.1) mmol/L Chloride 96 L (98-107) mmol/L Carbon Dioxide 14 L (21-32) mmol/L Anion Gap 27 H (3-11) BUN 21 (6-23) mg/dl Creatinine 0.82 (0.6-1.2) mg/dl Est Cr Clr Drug Dosing 65.5 ml/min Est GFR ( Amer) 85.2 ml/min Est GFR (Non-Af Amer) 73.5 ml/min BUN/Creatinine Ratio 25.6 H (10-20) Glucose 116 H (70-99(Fasting)) mg/dl POC Glucose 125 H (70-99) mg/dl Lactate (0.4-2.0) mmol/L Calcium 8.2 L (8.6-10.3) mg/dl Phosphorus 5.8 H (2.5-4.9) mg/dl Magnesium 2.1 (1.7-2.4) mg/dl Total Bilirubin 0.7 (0.2-1.0) mg/dl AST 118 H (13-39) U/L ALT 36 (7-52) U/L Alkaline Phosphatase 142 H (34-104) U/L Total Protein 7.1 (6.0-8.3) gm/dl Albumin 4.2 (3.4-5.0) gm/dl Globulin 2.9 (2.5-4.0) gm/dl Albumin/Globulin Ratio 1.4 (0.9-2) Urine Color Yellow Urine Appearance Clear (Clear) Urine pH 5.5 (4.5-7.5) Ur Specific Superior 1.014 (1.000-1.030) Urine Protein Negative (Negative) Urine Glucose (UA) Negative (Negative) Urine Ketones 2+ H (Negative) Urine Blood Negative (Negative) Urine Nitrite Negative (Negative) Urine Bilirubin Negative (Negative) Urine Urobilinogen Negative (Negative) Ur Leukocyte Esterase Negative (Negative) Salicylates (3.0-30) mg/dl Ethyl Alcohol mg/dL (<10.0) mg/dl 10/24/23 10/24/23 Range/Units 07:38 10:18 WBC (4.8-10.8) K/ul RBC (4.20-5.40) M/uL Hgb (12.0-16.0) g/dl Hct (37.0-47.0) % MCV (80.0-100.0) fL MCH (25.0-34.0) pg MCHC (32.0-36.0) g/dL RDW Std Deviation (36.4-46.3) fL RDW Coeff of Cate (11.5-14.5) % Plt Count (130-400) K/uL MPV (9.4-12.4) fL Immature Gran % (Auto) % Neut % (Auto) % Lymph % (Auto) % Toombs % (Auto) % Eos % (Auto) % Baso % (Auto) % Neut # (Auto) (1.40-6.50) K/uL Lymph # (Auto) (1.20-3.40) K/uL Toombs # (Auto) (0.11-0.59) K/uL Eos # (Auto) (0.00-0.50) K/uL Baso # (Auto) (0.00-0.20) K/uL Immature Gran # (Auto) (0.01-0.20) K/uL Sodium (136-145) mmol/L Potassium (3.5-5.1) mmol/L Chloride (98-107) mmol/L Carbon Dioxide (21-32) mmol/L Anion Gap (3-11) BUN (6-23) mg/dl Creatinine (0.6-1.2) mg/dl Est Cr Clr Drug Dosing ml/min Est GFR ( Amer) ml/min Est GFR (Non-Af Amer) ml/min BUN/Creatinine Ratio (10-20) Glucose (70-99(Fasting)) mg/dl POC Glucose (70-99) mg/dl Lactate 2.9 H* (0.4-2.0) mmol/L Calcium (8.6-10.3) mg/dl Phosphorus (2.5-4.9) mg/dl Magnesium (1.7-2.4) mg/dl Total Bilirubin (0.2-1.0) mg/dl AST (13-39) U/L ALT (7-52) U/L Alkaline Phosphatase (34-104) U/L Total Protein (6.0-8.3) gm/dl Albumin (3.4-5.0) gm/dl Globulin (2.5-4.0) gm/dl Albumin/Globulin Ratio (0.9-2) Urine Color Urine Appearance (Clear) Urine pH (4.5-7.5) Ur Specific Superior (1.000-1.030) Urine Protein (Negative) Urine Glucose (UA) (Negative) Urine Ketones (Negative) Urine Blood (Negative) Urine Nitrite (Negative) Urine Bilirubin (Negative) Urine Urobilinogen (Negative) Ur Leukocyte Esterase (Negative) Salicylates < 3.0 L (3.0-30) mg/dl Ethyl Alcohol mg/dL 39.7 H (<10.0) mg/dl Administered Medications Discontinued Medications Folic Acid (Folic Acid 1 Mg Tab) 1 mg PO [facility] Stop: 11/24/23 08:59 Last Admin: 10/26/23 08:54 Dose: 1 mg Documented By: Admin: 10/25/23 08:13 Dose: 1 mg Documented By: ROSENDO Heparin Sodium (Porcine) (Heparin Sod 5,000 Unit/0.5 Ml Vial) 5,000 units SQ Q12 [facility] Stop: 11/23/23 20:59 Last Admin: 10/26/23 08:54 Dose: Not Given Documented By: Admin: 10/25/23 20:53 Dose: Not Given Documented By: Admin: 10/25/23 08:14 Dose: Not Given Documented By: Admin: 10/24/23 20:06 Dose: Not Given Documented By: MIKHAIL Hydroxyzine HCl (Hydroxyzine Hcl 25 Mg Tab) 100 mg PO HS [facility] Stop: 11/23/23 20:59 Last Admin: 10/25/23 20:56 Dose: 100 mg Documented By: Admin: 10/24/23 20:08 Dose: 100 mg Documented By: MIKHAIL Sodium Chloride (Nss) 500 mls @ 999 mls/hr IV .Q31M ONE Stop: 10/24/23 08:02 Last Infusion: 10/24/23 08:50 Dose: Infused Documented By: Admin: 10/24/23 07:45 Dose: 999 mls/hr Documented By: MR Multivitamins 10 ml/ Thiamine HCl 100 mg/ Folic Acid 1 mg/Sodium Chloride 1,011.2 mls @ 500 mls/hr IV .Q2H2M ONE Stop: 10/24/23 09:33 Last Infusion: 10/24/23 11:24 Dose: Infused Documented By: Admin: 10/24/23 08:47 Dose: 500 mls/hr Documented By: MR Famotidine (Pepcid 20mg Iv Push) 20 mg in 5 mls @ 2.5 mls/min IV NOW STA Stop: 10/24/23 10:59 Last Admin: 10/24/23 11:39 Dose: 2.5 mls/min Documented By: MARYJO Dextrose/Lactated Ringer's (D5w And Lactated Ringers) 1,000 mls @ 125 mls/hr IV .Q8H [facility] Stop: 10/25/23 02:59 Last Infusion: 10/24/23 15:29 Dose: Infused Documented By: Admin: 10/24/23 12:18 Dose: 125 mls/hr Documented By: KEG Lactated Ringer's (Lr) 1,000 mls @ 80 mls/hr IV .[id number] [facility]BAR[facility] Stop: 10/25/23 09:44 Last Infusion: 10/25/23 09:45 Dose: Infused Documented By: Admin: 10/24/23 21:15 Dose: 80 mls/hr Documented By: MIKHAIL Lactated Ringer's (Lr) 500 mls @ 999 mls/hr IV .Q31M ONE Stop: 10/24/23 22:03 Last Infusion: 10/24/23 23:05 Dose: Infused Documented By: Admin: 10/24/23 22:34 Dose: 999 mls/hr Documented By: MIKHAIL Lisinopril (Lisinopril 20 Mg Tab) 20 mg PO [facility] Stop: 11/23/23 20:59 Last Admin: 10/24/23 20:10 Dose: Not Given Documented By: MIKHAIL Lorazepam (Lorazepam 1 Mg/1 Ml Syr Ed Inj Use) 2 mg IV ONE STA Stop: 10/24/23 10:02 Last Admin: 10/24/23 10:59 Dose: 2 mg Documented By: Ondansetron HCl (Ondansetron Inj 2 Mg/Ml 2 Ml Vial) 4 mg IV Q6H PRN PRN Reason: Nausea Stop: 11/23/23 12:32 Last Admin: 10/25/23 21:34 Dose: 4 mg Documented By: MIKHAIL Pantoprazole Sodium (Pantoprazole 40 Mg Tab) 40 mg PO QAM [facility] Stop: 11/23/23 17:59 Last Admin: 10/26/23 08:54 Dose: 40 mg Documented By: Admin: 10/25/23 08:13 Dose: 40 mg Documented By: Admin: 10/24/23 18:19 Dose: 40 mg Documented By: LUIS Quetiapine Fumarate (Quetiapine Fumarate 25 Mg Tablet) 50 mg PO [facility] Stop: 11/23/23 20:59 Last Admin: 10/25/23 20:58 Dose: 50 mg Documented By: Admin: 10/24/23 20:09 Dose: 50 mg Documented By: MIKHAIL Sertraline HCl (Sertraline Hcl 100 Mg Tablet) 100 mg PO [facility] Stop: 11/23/23 20:59 Last Admin: 10/25/23 20:57 Dose: 100 mg Documented By: Admin: 10/24/23 20:11 Dose: 100 mg Documented By: MIKHAIL Thiamine HCl (Thiamine Hcl 100 Mg Tab) 100 mg PO [facility] Stop: 11/24/23 08:59 Last Admin: 10/26/23 08:54 Dose: 100 mg Documented By: Admin: 10/25/23 08:13 Dose: 100 mg Documented By: ROSENDO Vitamin D (Cholecalciferol 125 Mcg (5,000 Units) Tab) 125 mcg PO [facility] Stop: 11/24/23 08:59 Last Admin: 10/26/23 08:54 Dose: 125 mcg Documented By: Admin: 10/25/23 08:47 Dose: 125 mcg Documented By: ROSENDO Discharge Plan Visit Data Chief Complaint: Hypoglycemia ED Provider: Yue Jimenez Discharge Problem: Hypoglycemia, Alcohol use disorder, Poor nutrition Patient Disposition: Admitted As Inpatient Discharge Instructions Interventions: ED Discharge Assessment Last Done: 10/24/23 12:36
[2023-10-24] MEDS: PANTOprazole 40 MG TAB PO SCH (18:19)
[2023-10-24] MEDS: HEPARIN SOD 5,000 UNIT/0.5 ML VIAL SQ SCH (20:06)
[2023-10-24] MEDS: hydrOXYzine HCl 25 MG TAB PO SCH (20:08)
[2023-10-24] MEDS: QUEtiapine FUMARATE 25 MG TABLET PO SCH (20:09)
[2023-10-24] MEDS: lisinopril 20 MG TAB PO SCH (20:10)
[2023-10-24] MEDS: SERTRALINE HCL 100 MG TABLET PO SCH (20:11)
[2023-10-24 20:47] LABS: BUN Creatinine Ratio 21.1 (10-20); Creatinine Clr Calc Pharmacy 54.1 ml/min; Est GFR (African American) 71.3 ml/min; Est GFR (Non-African American) 61.5 ml/min; Potassium 5.2 mmol/L (3.5-5.1)
[2023-10-24] MEDS: LACTATED RINGER'S 1,000 ML IV SCH (21:15)
[2023-10-24] MEDS: LACTATED RINGER'S 500 ML IV ONE (22:34)
--- NOTE | 2023-10-25 06:02 | Electrocardiogram Report ---
Test Reason : Blood Pressure : / mmHG Vent. Rate : 081 BPM Atrial Rate : 081 BPM P-R Int : 186 ms QRS Dur : 078 ms QT Int : 416 ms P-R-T Axes : 022 -20 025 degrees QTc Int : 483 ms Normal sinus rhythm Minimal voltage criteria for LVH, may be normal variant Borderline ECG When compared with ECG of 21-JUL-2023 12:52, No significant change was found Confirmed by Wade Andersen ([id number]) on 10/25/2023 6:02:06 AM Referred By: REFERRED SELF Confirmed By:Jos Andersen
[2023-10-25 06:40] LABS: Albumin Globulin Ratio 1.6 (0.9-2); Albumin Level 3.3 gm/dl (3.4-5.0); BUN Creatinine Ratio 24.7 (10-20); Bilirubin,Total 0.8 mg/dl (0.2-1.0); Calcium 8.6 mg/dl (8.6-10.3); Creatinine Clr Calc Pharmacy 70.5 ml/min; Est GFR (African American) 98.1 ml/min; Est GFR (Non-African American) 84.6 ml/min; Globulin 2.1 gm/dl (2.5-4.0); Magnesium 1.7 mg/dl (1.7-2.4); Phosphorus 1.9 mg/dl (2.5-4.9); Potassium 4.6 mmol/L (3.5-5.1); Total Protein 5.4 gm/dl (6.0-8.3)
[2023-10-25 07:41] LABS: Basophils # (auto) 0.03 K/uL (0.00-0.20); Basophils % (auto) 0.5 %; Eosinophils # (auto) 0.03 K/uL (0.00-0.50); Eosinophils % (auto) 0.5 %; Hematocrit (blood only) 31.6 % (37.0-47.0); Hemoglobin 10.7 g/dl (12.0-16.0); Immature Granulocytes # (auto) 0.02 K/uL (0.01-0.20); Immature Granulocytes % (auto) 0.3 %; Lymphocytes # (auto) 1.86 K/uL (1.20-3.40); Lymphocytes % (auto) 31.4 %; Mean Corpuscular Hemoglobin 31.7 pg (25.0-34.0); Mean Corpuscular Hgb Conc 33.9 g/dL (32.0-36.0); Mean Corpuscular Volume 93.5 fL (80.0-100.0); Mean Platelet Volume 9.4 fL (9.4-12.4); Monocytes # (auto) 0.75 K/uL (0.11-0.59); Monocytes % (auto) 12.7 %; Neutrophils # (auto) 3.23 K/uL (1.40-6.50); Neutrophils % (auto) 54.6 %; Platelet Count 218 K/uL (130-400); RDW Coefficient of Variation 17.2 % (11.5-14.5); RDW Standard Deviation 58.7 fL (36.4-46.3); Red Blood Count 3.38 M/uL (4.20-5.40); White Blood Count 5.92 K/ul (4.8-10.8)
[2023-10-25] MEDS: THIAMINE HCL 100 MG TAB PO SCH (08:13)
[2023-10-25] MEDS: FOLIC ACID 1 MG TAB PO SCH (08:13)
[2023-10-25] MEDS: CHOLECALCIFEROL 125 MCG (5,000 UNITS) TAB PO SCH (08:47)
--- NOTE | 2023-10-25 11:07 | Hospitalist Progress Note ---
Date of Service October 25, 2023 Assessment & Plan (1) Hypoglycemia: Plan: Patient was admitted to the hospital on account of slurred speech, and difficulty moving Found to have a blood glucose of 22 Secondary to poor oral intake, and alcohol use BSG q6h for now IVF resuscitation with D5LR at 125mL/hr x 2 Blood glucose level much improved following resuscitation with dextrose C-peptide level ordered, pending (2) Alcohol withdrawal: Plan: Alcohol intoxication, no evidence of withdrawal for now On admission, had elevated blood alcohol level However we will continue to monitor for withdrawal Continue CIWA protocol Fall and seizure precautions (3) Starvation ketoacidosis: Plan: UA +2 ketones Anion gap elevated at 27 Lactate elevated at 2.9, repeat pending Monitor for correction with fluids (4) Anorexia: Plan: Patient reports she has no desire to eat, and that food tastes like "cardboard" Dietitian consulted (5) Alcohol use disorder: Plan: Alcohol rehab x 2 Patient is amenable to rehab on discharge, and would like to speak to someone while inpatient to discuss available options Case management consult No visual/auditory hallucinations at time of admission Monitor for DTs (while she denies history of DTs, patient does note she started seeing the wall "move" when hospitalized around 4-5 years ago) (6) Acute dehydration: Plan: BUN/creatinine ratio elevated at 25.6 IVF resuscitation (as above) (7) Depression: Plan: Continue Zoloft (8) History of gastric bypass: Plan: In 1999 (9) Poor nutrition: Plan Disposition: Admit to PCU telemetry Full code Regular diet, dietitian consulted VTE PPx: Heparin 5000u SQ q12h Admission and Anticipated Discharge Date Admission Date: October 24, 2023 Subjective Patient seen and examined today, no abdominal pain or shortness of breath, no signs of withdrawal. Review of Systems Review of Systems: All systems reviewed are negative, apart from the ones contained in the history. Physical Exam Physical Exam: The patient is awake, alert and oriented 3, well developed and well nourished, normocephalic and atraumatic, lying in bed and in no acute distress. HEENT--PERRL, EOMI, mucous membranes and oropharynx mildly dry Neck--supple. No JVD. No bruits. Thyroid normal, trachea midline, no adenopathy. Heart--normal S1 and S2. No murmurs, rubs or gallops. Lungs--clear bilaterally, no respiratory distress, no accessory muscle use. Abdomen--normal bowel sounds and soft. Extremities--no cyanosis or clubbing. No edema. Dermatologic--normal skin turgor, normal color, no abnormal lymph nodes, no rash. Neurologic--cranial nerves II through XII grossly intact. Rheumatologic--normal range of motion. Psychiatric--normal affect. Results & Data Results & Data Vital Signs (Past 12 Hours) Vital Signs Temp Pulse Pulse Resp BP Pulse Ox O2 Del Method 10/25/23 08:00 Room Air 10/25/23 07:30 97.7 F 88 18 126/78 100 Room Air 10/25/23 06:17 90 10/25/23 03:28 97.7 F 82 18 122/75 97 Room Air 10/24/23 23:30 98.4 F 90 18 123/79 97 Room Air PG Care Time/CCT Total # of Minutes Spent Total Time Spent with Patient: Total time spent is greater than 50% in coordination of care (as documented) at patient's floor/unit and/or counseling patient: Coding Level of Care Code 73155 SUB INP/OBS CARE 2/35MIN Diagnoses Hypoglycemia E16.2 Alcohol withdrawal F10.930 Complication of substance-induced condition: uncomplicated Starvation ketoacidosis T73.0XXA; E87.29 Anorexia R63.0 Alcohol use disorder F10.90 Acute dehydration E86.0 Depression, unspecified depression type F32.A Depression Type: unspecified History of gastric bypass Z98.84 Poor nutrition E63.9 Time Spent (min) 35 (2) Alcohol withdrawal Complication of substance-induced condition: uncomplicated Qualified Code(s): F10.930 - Alcohol use, unspecified with withdrawal, uncomplicated (7) Depression Depression Type: unspecified Qualified Code(s): F32.A - Depression, unspecified
[2023-10-25] MEDS: ONDANSETRON INJ 2 MG/ML 2 ML VIAL IV PRN (21:34)
[2023-10-26 07:53] LABS: Basophils # (auto) 0.03 K/uL (0.00-0.20); Basophils % (auto) 0.7 %; Eosinophils # (auto) 0.07 K/uL (0.00-0.50); Eosinophils % (auto) 1.6 %; Hematocrit (blood only) 31.5 % (37.0-47.0); Hemoglobin 10.4 g/dl (12.0-16.0); Immature Granulocytes # (auto) 0.01 K/uL (0.01-0.20); Immature Granulocytes % (auto) 0.2 %; Lymphocytes # (auto) 1.26 K/uL (1.20-3.40); Lymphocytes % (auto) 29.4 %; Mean Corpuscular Hemoglobin 31.4 pg (25.0-34.0); Mean Corpuscular Volume 95.2 fL (80.0-100.0); Mean Platelet Volume 9.8 fL (9.4-12.4); Monocytes # (auto) 0.47 K/uL (0.11-0.59); Neutrophils # (auto) 2.45 K/uL (1.40-6.50); Neutrophils % (auto) 57.1 %; Platelet Count 176 K/uL (130-400); RDW Coefficient of Variation 17.3 % (11.5-14.5); RDW Standard Deviation 60.2 fL (36.4-46.3); Red Blood Count 3.31 M/uL (4.20-5.40); White Blood Count 4.29 K/ul (4.8-10.8)
[2023-10-26 08:02] LABS: Albumin Globulin Ratio 1.4 (0.9-2); Albumin Level 3.3 gm/dl (3.4-5.0); BUN Creatinine Ratio 17.8 (10-20); Bilirubin,Total 0.5 mg/dl (0.2-1.0); Calcium 9.3 mg/dl (8.6-10.3); Creatinine Clr Calc Pharmacy 71.2 ml/min; Est GFR (African American) 98.1 ml/min; Est GFR (Non-African American) 84.6 ml/min; Globulin 2.3 gm/dl (2.5-4.0); Potassium 4.5 mmol/L (3.5-5.1); Total Protein 5.6 gm/dl (6.0-8.3)
--- NOTE | 2023-10-26 10:19 | Discharge Summary ---
Date of Service October 26, 2023 Admission HPI Per Admitting Provider Pretty is a 68-year-old female with PMH of alcohol abuse, anorexia, gastric bypass, syncope, GERD, and esophageal dysmotility. She presented for slurred speech, lower extremity weakness, and inability to get a bed on 10/23. Patient reports she was drinking last night, and was able to get herself to the bathroom twice last night; however, she woke up around 5 AM, and was unable to move her legs. She lives by herself. She reports she had around 4 drinks last night; rum and Cokes. She reports that she averages 4 drinks daily. Patient called the ambulance in bed, and when they arrived they noted that her glucose was at 22mg/dL. Patient denies history of seizures. She does note that she has a history of alcohol withdrawal tremors, but she denies being hospitalized for alcohol withdrawal specifically in the past. She does note that she had 1 admission where she saw "truong moving" for years ago, but denies any auditory or visual hallucinations when trying to come off alcohol in the past. She has been drinking at least 4 drinks per day for the past 6-7 years. She has tried coming off in the past, but has only gone about 2 weeks without alcohol. When she called EMS this morning, she did note that she had slurred speech and was barely able to communicate with 911; however, she denies facial droop or unilateral deficits (she notes that both legs are weak, and that 1 was not weaker than the other). No recent falls, injuries, or trauma to the head or neck. Patient denies smoking, tobacco use, and recreational drug use. She reports that she has not had any solid food in the past 2-3 days. When asked why she has not been eating, she reports she has no desire to eat. It does not have to do with nausea/vomiting. Patient does note that she has a history of anorexia, and recently she reports that she "hates food" and that it tasted like "cardboard". Patient last took her regular medications around 2 days ago. She does note that she has naltrexone at home if needed. Of note, the patient was recently on a [place] cruise with her sister in [facility] and had to be hospitalized on October 09 for slurred speech and inability to talk/walk. At the hospital, the working diagnosis was for a stroke. However, patient has no memory of her hospitalization, and is unsure whether or not a stroke was actually confirmed. Patient is hypertensive at 152/83 at time of admission; vitals otherwise stable. ED course: Banana bag x 1 NSS 500 mL IV Lorazepam 2 mg IV ROS: Patient endorses productive cough (ongoing), slurred speech, fatigue, nausea, vomiting (which patient attributes to not eating; vomits up plegm), and weakness in both legs bilaterally. Patient denies fever, chills, nightsweats, PARNELL, facial droop, dizziness, lightheadedness, confusion last night, visual/auditory hallucinations, changes in vision, fainting, falling, chest pain, chest palpitations, SOB, hemoptysis, pleuritic CP, abdominal pain, diarrhea, constipation, change in urinary/bowel habits, blood in the urine/stool, or numbness/tingling in the arms or legs. Principal Diagnosis Alcohol intoxication, hypoglycemia Discharge Exam The patient is awake, alert and oriented 3, well developed and well nourished, normocephalic and atraumatic, lying in bed and in no acute distress. HEENT--PERRL, EOMI, mucous membranes and oropharynx mildly dry Neck--supple. No JVD. No bruits. Thyroid normal, trachea midline, no adenopathy. Heart--normal S1 and S2. No murmurs, rubs or gallops. Lungs--clear bilaterally, no respiratory distress, no accessory muscle use. Abdomen--normal bowel sounds and soft. Extremities--no cyanosis or clubbing. No edema. Dermatologic--normal skin turgor, normal color, no abnormal lymph nodes, no rash. Neurologic--cranial nerves II through XII grossly intact. Rheumatologic--normal range of motion. Psychiatric--normal affect. Discharge Data Allergies Allergy/AdvReac Type Severity Reaction Status Date / Time No Known Allergies Allergy Verified 10/24/23 11:18 Consultations 10/24/23 10:41 ED Decision to Admit Stat Hospital Course (1) Hypoglycemia: Patient was admitted to the hospital on account of slurred speech, and difficulty moving Found to have a blood glucose of 22 Secondary to poor oral intake, and alcohol use BSG q6h for now IVF resuscitation with D5LR at 125mL/hr x 2 Blood glucose level much improved following resuscitation with dextrose C-peptide level ordered, pending (2) Alcohol withdrawal: Alcohol intoxication, no evidence of withdrawal for now On admission, had elevated blood alcohol level However we will continue to monitor for withdrawal Continue CIWA protocol Fall and seizure precautions (3) Starvation ketoacidosis: UA +2 ketones Anion gap elevated at 27 Lactate elevated at 2.9, repeat pending Monitor for correction with fluids (4) Anorexia: Patient reports she has no desire to eat, and that food tastes like "cardboard" Dietitian consulted (5) Alcohol use disorder: Alcohol rehab x 2 Patient is amenable to rehab on discharge, and would like to speak to someone while inpatient to discuss available options Case management consult No visual/auditory hallucinations at time of admission Monitor for DTs (while she denies history of DTs, patient does note she started seeing the wall "move" when hospitalized around 4-5 years ago) (6) Acute dehydration: BUN/creatinine ratio elevated at 25.6 IVF resuscitation (as above) (7) Depression: Continue Zoloft (8) History of gastric bypass: In 1999 (9) Poor nutrition: Plan Disposition: Discharge home, patient was encouraged to quit alcohol and also encouraged to schedule behavioral therapy sessions. Full code Regular diet, dietitian consulted VTE PPx: Heparin 5000u SQ q12h Total Time Total Time Spent Total Time Spent (In Minutes): 35 Discharge Plan Discharge Items Patient Disposition: Home - Self-Care Reason For Visit: HYPERGLYCEMIA Discharge Diagnosis: Hypoglycemia, alcohol intoxication Activity: Resume your previous activity Non-emergency contact: Primary Care Provider Call non-emergency contact if: you have any medication questions Follow-up/Referrals: Emily Diehl PA-C [Primary Care Provider] - Diet: Regular Addtl Attending Provider Instructions: Please make appointment follow-up with your PCP, as discussed, also make an effort to quit alcohol Pending Studies at Discharge: No Stand-Alone Forms: [facility] [employer], Smoking Cessation Medications and DC Order Prescriptions: New cholecalciferol (vitamin D3) 125 mcg (5,000 unit) Tablet 125 mcg PO QAM Qty: 90 0RF folic acid 1 mg Tablet 1 mg PO QAM Qty: 90 0RF thiamine HCl (vitamin B1) 100 mg Tablet 100 mg PO QAM Qty: 90 0RF Continued lisinopril 10 mg Tablet 20 mg PO HS Hold Instructions: Resume on 01/26/24. Continue to hold until your appointment with your primary care provider. Rx Instructions: pt states only take if blood pressure elevated alendronate 70 mg tablet 70 mg PO Q7D Rx Instructions: Mondays ondansetron 4 mg tablet,disintegrating 4 mg PO Q6H PRN (Reason: nausea and vomiting) Qty: 14 0RF quetiapine 100 mg tablet 0 mg PO HS Rx Instructions: pt states "takes 100mg po qhs" original directions: take 50mg po qhs hydroxyzine pamoate 100 mg Capsule 100 mg PO HS Rx Instructions: Patient states she takes 100mg along with Hydroxyzine 50mg every night at bedtime sertraline [Zoloft] 100 mg Tablet 100 mg PO HS valacyclovir 1 gram Tablet 1,000 mg PO DIRECTED PRN (Reason: Cold Sores) PNV cmb#95-ferrous fumarate-FA [] 28 mg iron- 800 mcg Tablet 1 tab PO DAILY Rx Instructions: unknown strength Discharge Orders: Discharge Order (Routine); Ordered 10/26/23 Ordered By: Christopher Ochoa Admission Data Admit Date/Time: 10/24/23 10:50 Attending Provider: Christopher Ochoa Admit Provider: Kendall Dill Primary Care Provider: Emily Diehl Other Providers: Kendall Dill Other Interventions: Discharge Summary Assessment (RN) Last Done: 10/26/23 09:48 Coding Level of Care Code 42245 INP/OBS DISCH >30 MIN Diagnoses Hypoglycemia E16.2 Alcohol withdrawal F10.930 Complication of substance-induced condition: uncomplicated Starvation ketoacidosis T73.0XXA; E87.29 Anorexia R63.0 Alcohol use disorder F10.90 Acute dehydration E86.0 Depression, unspecified depression type F32.A Depression Type: unspecified History of gastric bypass Z98.84 Poor nutrition E63.9 Time Spent (min) 35
[2023-10-27 09:17] LABS: C-Peptide 1.59 ng/mL (0.80-3.85); Insulin Total, Fasting 3.4 uIU/mL
== END 2023-10-26 13:01 | disposition home or self-care (01) | DRG 897 ==
LOC: ED 07:04 → 2S 10:50 → SUATTDRO 10:50 → 2S 12:36

== ENCOUNTER 2023-11-16 22:11 | Inpatient (IN) ==
--- NOTE | 2023-11-16 22:25 | Emergency Department Note ---
History of Present Illness General Chief complaint: Back Injury/Pain Stated complaint: BACK PAIN 03/16 PAIN Time Seen by Provider: 11/16/23 22:15 History of Present Illness This 68-year-old female presents ER complaining of generalized weakness and frequent falls for the past several weeks. Patient was seen here yesterday with no acute findings noted. Patient states she fell again today and now her low back hurts. She does have chronic back pain. Patient states she feels too weak to walk or care for herself. She lives by herself alone. Patient denies chest pain, dyspnea, abdominal pain, headache, neck pain, numbness, tingling, localized weakness. Home Medications Medication Instructions Recorded Confirmed Type quetiapine 100 mg tablet 100 mg PO HS 10/22/22 11/16/23 History hydroxyzine pamoate 100 mg capsule 100 mg PO HS 01/07/23 11/16/23 History sertraline 100 mg tablet (Zoloft) 100 mg PO HS 01/07/23 11/16/23 History lisinopril 10 mg tablet 10 mg PO HS 01/31/23 11/16/23 History alendronate 70 mg tablet 70 mg PO Q7D 04/26/23 11/16/23 History ondansetron 4 mg disintegrating 4 mg PO Q6H PRN nausea and 04/26/23 11/16/23 Rx tablet vomiting #14 tabs valacyclovir 1 gram tablet 1,000 mg PO DIRECTED PRN Cold 07/21/23 11/16/23 History Sores cholecalciferol (vitamin D3) 125 125 mcg PO QAM #90 tabs 10/26/23 11/16/23 Rx mcg (5,000 unit) tablet folic acid 1 mg tablet 1 mg PO QAM #90 tabs 10/26/23 11/16/23 Rx thiamine HCl (vitamin B1) 100 mg 100 mg PO QAM #90 tabs 10/26/23 11/16/23 Rx tablet acetaminophen 500 mg tablet 1,000 mg PO BID PRN Pain (Scale 11/16/23 11/16/23 History (Tylenol Extra Strength) Score 1-3) Allergies Allergy/AdvReac Type Severity Reaction Status Date / Time No Known Allergies Allergy Verified 11/16/23 23:27 Past Med/Surg History Medical History Osteoarthritis Acid reflux Anemia History of depression Insomnia Hypertension Surgical History H/O gastric bypass History of section x 1 History of open reduction and internal fixation (ORIF) procedure right wrist--hardware in place History of total left hip replacement History of colonoscopy History of esophagogastroduodenoscopy (EGD) History of wisdom tooth extraction History of cholecystectomy H/O: hysterectomy Family History Other No family history of adverse response to anesthesia Social History Smoking Status: Never smoker Second Hand Exposure: Yes (as a child); Do You Dip or Chew Tobacco: No; Hx Alcohol Use: Yes Alcohol type: hard liquor Hx Substance Use: No Preferred Language: Chinese Communication Ability: Effective Chiropractic Practice Manager Required: No Beliefs That Will Affect Care: None Current Living Situation: Alone Feels Safe at Home: Yes Assistive Devices: Cane, Raised Toilet Seat and Walker Review of Systems A total of 10 systems reviewed and were otherwise negative Physical Exam Vital Signs Vital Signs - 24 hr 11/16/23 22:20 11/16/23 22:46 11/16/23 23:00 Temperature 36.7 C Temperature Source Oral Pulse Rate 96 H Pulse Rate [Apical] 96 H Pulse Rhythm [Apical] Regular Pulse Strength [Apical] Normal Respiratory Rate 19 18 Respiratory Effort / Characteristics Non-Labored Spontaneous Non-Labored Spontaneous Respiratory Depth Normal Normal Respiratory Pattern Regular Regular Blood Pressure 94/70 L Blood Pressure [Right Arm] 122/64 Blood Pressure Mean 78 Blood Pressure Mean [Right Arm] 83 Blood Pressure Position [Right Arm] Semi-fowlers Pulse Oximetry 92 93 98 Oxygen Delivery Method Room Air Room Air Room Air Sepsis Recent Fever Within 48 Hours No Sepsis New/Unexplained Change in Mental Status No Sepsis Action Taken by Nursing No Action Required 11/16/23 23:13 11/17/23 01:00 Temperature Temperature Source Pulse Rate 89 Pulse Rate [Apical] 91 H Pulse Rhythm [Apical] Regular Pulse Strength [Apical] Normal Respiratory Rate 16 Respiratory Effort / Characteristics Non-Labored Spontaneous Respiratory Depth Normal Respiratory Pattern Regular Blood Pressure Blood Pressure [Right Arm] 128/79 Blood Pressure Mean Blood Pressure Mean [Right Arm] 95 Blood Pressure Position [Right Arm] Semi-fowlers Pulse Oximetry 96 Oxygen Delivery Method Room Air Sepsis Recent Fever Within 48 Hours Sepsis New/Unexplained Change in Mental Status Sepsis Action Taken by Nursing VITALS: Vitals are noted on the nurse's note and reviewed by myself. Vital signs stable. GENERAL: White female following commands moving all extremities, in no acute distress, nondiaphoretic, well-developed well-nourished. SKIN: The skin was without rashes, erythema, edema, or bruising. There is no tenting of the skin. Capillary reflex less than 2 seconds. HEAD: Normocephalic atraumatic. EARS: External auditory canals clear EYES: Pupils equal round and reactive to light and accommodation. Conjunctivae without injection, sclerae without icterus. Extraocular movements intact. NOSE: Patent, no discharge. MOUTH: Mucous membranes moist. Pharynx without erythema or exudate. Uvula midline. Airway patent. Tongue does not deviate. NECK: Supple without nuchal rigidity. No lymphadenopathy. No thyromegaly. Cervical spine is nontender. No JVD. HEART: Regular rate and rhythm LUNGS: Clear to auscultation bilaterally without wheezes, rales or rhonchi. No retractions or accessory muscle use. ABDOMEN: Positive bowel sounds x 4. Normal tympanic percussion. Soft, nontender, without masses or organomegaly. Perez sign negative. No guarding or rebound tenderness. No CVA tenderness MUSCULOSKELETAL: No muscle atrophy, erythema, or edema noted. No thoracic tenderness. Lumbar tenderness over L4 and 5. No step-offs. 5 out of 5 strength throughout. NEURO: Patient was alert and oriented to person place and time. Normal sensation to light and sharp touch. Cranial nerves II through XII grossly intact. No pronator drift. Cerebellar exam intact. No focal neurological deficits. Course Administered Medications Discontinued Medications Dextrose (Dextrose 50% 50 Ml Syringe) 50 ml IV NOW ONE Stop: 11/16/23 23:52 Last Admin: 11/16/23 23:59 Dose: 50 ml Documented By: PEMA Sodium Chloride (Nss) 500 mls @ 999 mls/hr IV .Q31M BARBARA Stop: 11/16/23 23:00 Last Infusion: 11/16/23 23:30 Dose: Infused Documented By: Admin: 11/16/23 22:47 Dose: 999 mls/hr Documented By: DALE Acetaminophen (Ofirmev) 1,000 mg in 100 mls @ 400 mls/hr IV NOW STA Stop: 11/16/23 22:39 Last Infusion: 11/16/23 23:10 Dose: Infused Documented By: Admin: 11/16/23 22:50 Dose: 400 mls/hr Documented By: DALE Sodium Chloride (Nss) 500 mls @ 999 mls/hr IV .Q31M ONE Stop: 11/17/23 00:14 Last Infusion: 11/17/23 01:15 Dose: Infused Documented By: Admin: 11/17/23 00:11 Dose: 999 mls/hr Documented By: ELKE Magnesium Sulfate/Dextrose (Magnesium Sulfate / D5w) 1 gm in 100 mls @ 100 mls/hr IV Q1H BARBARA Stop: 11/17/23 01:44 Last Admin: 11/17/23 01:17 Dose: 100 mls/hr Documented By: Infusion: 11/17/23 01:17 Dose: Infused Documented By: Admin: 11/17/23 00:14 Dose: 100 mls/hr Documented By: ELKE Medical Decision Making Medical Records Attestation: I reviewed the patient's medical records. Home Medications Current Medication List: was personally reviewed by me Laboratory Data Attestation: I reviewed the patient's lab results. 11/16/23 22:40 11/16/23 22:40 Lab Results 11/16/23 11/16/23 11/16/23 Range/Units 22:40 23:32 Unknown WBC 12.22 H (4.8-10.8) K/ul RBC 3.33 L (4.20-5.40) M/uL Hgb 10.5 L (12.0-16.0) g/dl Hct 32.6 L (37.0-47.0) % MCV 97.9 (80.0-100.0) fL MCH 31.5 (25.0-34.0) pg MCHC 32.2 (32.0-36.0) g/dL RDW Std Deviation 62.5 H (36.4-46.3) fL RDW Coeff of Cate 17.4 H (11.5-14.5) % Plt Count 314 (130-400) K/uL MPV 9.2 L (9.4-12.4) fL Immature Gran % (Auto) 0.5 % Neut % (Auto) 86.0 % Lymph % (Auto) 5.4 % [place] % (Auto) 7.6 % Eos % (Auto) 0.2 % Baso % (Auto) 0.3 % Neut # (Auto) 10.51 H (1.40-6.50) K/uL Lymph # (Auto) 0.66 L (1.20-3.40) K/uL [place] # (Auto) 0.93 H (0.11-0.59) K/uL Eos # (Auto) 0.02 (0.00-0.50) K/uL Baso # (Auto) 0.04 (0.00-0.20) K/uL Immature Gran # (Auto) 0.06 (0.01-0.20) K/uL Sodium 136 (136-145) mmol/L Potassium 4.5 (3.5-5.1) mmol/L Chloride 103 (98-107) mmol/L Carbon Dioxide 19 L (21-32) mmol/L Anion Gap 14 H (3-11) BUN 29 H (6-23) mg/dl Creatinine 1.58 H D (0.6-1.2) mg/dl Est Cr Clr Drug Dosing 32.5 ml/min Est GFR ( Amer) 38.6 ml/min Est GFR (Non-Af Amer) 33.3 ml/min BUN/Creatinine Ratio 18.4 (10-20) Glucose 54 L (70-99(Fasting)) mg/dl POC Glucose (70-99) mg/dl Calcium 9.2 (8.6-10.3) mg/dl Magnesium 1.5 L (1.7-2.4) mg/dl Total Bilirubin 0.6 (0.2-1.0) mg/dl AST 47 H (13-39) U/L ALT 31 (7-52) U/L Alkaline Phosphatase 131 H (34-104) U/L Total Creatine Kinase 823 H (26-192) U/L Troponin I High Sens 13.9 (0-14) pg/ml Total Protein 6.1 (6.0-8.3) gm/dl Albumin 3.5 (3.4-5.0) gm/dl Globulin 2.6 (2.5-4.0) gm/dl Albumin/Globulin Ratio 1.3 (0.9-2) TSH 1.472 (0.300-4.500) uIu/ml Urine Color Urine Appearance (Clear) Urine pH (4.5-7.5) Ur Specific [place] (1.000-1.030) Urine Protein (Negative) Urine Glucose (UA) (Negative) Urine Ketones (Negative) Urine Blood (Negative) Urine Nitrite (Negative) Urine Bilirubin (Negative) Urine Urobilinogen (Negative) Ur Leukocyte Esterase (Negative) Urine WBC (Auto) (0-5) /hpf Urine RBC (Auto) (0-2) /hpf U Hyaline Cast (Auto) (0-2) /lpf U Epithel Cells (Auto) (0-2) /hpf Urine Bacteria (Auto) (None Seen) Urine Opiates Screen (Neg) Ur Methadone, Qual (Neg) Urine Barbiturates (Neg) Ur Phencyclidine (PCP) (Neg) U Amphetamin/Meth Scrn (Neg) MDMA (Ecstasy) Screen (Neg) U Benzodiazepines Scrn (Neg) Ur Cocaine Metabolite (Neg) U Marijuana (THC) Screen (Neg) Ethyl Alcohol mg/dL < 10.0 (<10.0) mg/dl SARS-CoV-2 (PCR) NEGATIVE (Negative) 11/17/23 11/17/23 Range/Units 00:17 00:40 WBC (4.8-10.8) K/ul RBC (4.20-5.40) M/uL Hgb (12.0-16.0) g/dl Hct (37.0-47.0) % MCV (80.0-100.0) fL MCH (25.0-34.0) pg MCHC (32.0-36.0) g/dL RDW Std Deviation (36.4-46.3) fL RDW Coeff of Cate (11.5-14.5) % Plt Count (130-400) K/uL MPV (9.4-12.4) fL Immature Gran % (Auto) % Neut % (Auto) % Lymph % (Auto) % [place] % (Auto) % Eos % (Auto) % Baso % (Auto) % Neut # (Auto) (1.40-6.50) K/uL Lymph # (Auto) (1.20-3.40) K/uL [place] # (Auto) (0.11-0.59) K/uL Eos # (Auto) (0.00-0.50) K/uL Baso # (Auto) (0.00-0.20) K/uL Immature Gran # (Auto) (0.01-0.20) K/uL Sodium (136-145) mmol/L Potassium (3.5-5.1) mmol/L Chloride (98-107) mmol/L Carbon Dioxide (21-32) mmol/L Anion Gap (3-11) BUN (6-23) mg/dl Creatinine (0.6-1.2) mg/dl Est Cr Clr Drug Dosing ml/min Est GFR ( Amer) ml/min Est GFR (Non-Af Amer) ml/min BUN/Creatinine Ratio (10-20) Glucose (70-99(Fasting)) mg/dl POC Glucose 143 H (70-99) mg/dl Calcium (8.6-10.3) mg/dl Magnesium (1.7-2.4) mg/dl Total Bilirubin (0.2-1.0) mg/dl AST (13-39) U/L ALT (7-52) U/L Alkaline Phosphatase (34-104) U/L Total Creatine Kinase (26-192) U/L Troponin I High Sens (0-14) pg/ml Total Protein (6.0-8.3) gm/dl Albumin (3.4-5.0) gm/dl Globulin (2.5-4.0) gm/dl Albumin/Globulin Ratio (0.9-2) TSH (0.300-4.500) uIu/ml Urine Color Yellow Urine Appearance Turbid A (Clear) Urine pH 5.0 (4.5-7.5) Ur Specific [place] 1.019 (1.000-1.030) Urine Protein Trace H (Negative) Urine Glucose (UA) Negative (Negative) Urine Ketones 1+ H (Negative) Urine Blood Negative (Negative) Urine Nitrite Positive A (Negative) Urine Bilirubin Negative (Negative) Urine Urobilinogen Negative (Negative) Ur Leukocyte Esterase 2+ H (Negative) Urine WBC (Auto) >50 H (0-5) /hpf Urine RBC (Auto) 0-2 (0-2) /hpf U Hyaline Cast (Auto) 6-10 H (0-2) /lpf U Epithel Cells (Auto) 3-5 H (0-2) /hpf Urine Bacteria (Auto) 4+ H (None Seen) Urine Opiates Screen Pos H (Neg) Ur Methadone, Qual Neg (Neg) Urine Barbiturates Neg (Neg) Ur Phencyclidine (PCP) Neg (Neg) U Amphetamin/Meth Scrn Neg (Neg) MDMA (Ecstasy) Screen Neg (Neg) U Benzodiazepines Scrn Neg (Neg) Ur Cocaine Metabolite Neg (Neg) U Marijuana (THC) Screen Neg (Neg) Ethyl Alcohol mg/dL (<10.0) mg/dl SARS-CoV-2 (PCR) (Negative) Imaging Data Attestation: I personally reviewed and interpreted this imaging study as follows: Radiologist's Impression: Lumbar Spine CT 11/16/23 22:21 Exam(s): CT L SPINE EXAM: CT Lumbar Spine Without Intravenous Contrast CLINICAL HISTORY: Reason for exam: fall, pain. TECHNIQUE: Axial computed tomography images of the lumbar spine without intravenous contrast. CTDI is 34 mGy and DLP is 846 mGy-cm. Automated exposure control was utilized for the study. A dose lowering technique was utilized adhering to the principles of ALARA. COMPARISON: No relevant prior studies available. FINDINGS: Vertebrae: No acute fracture or malalignment. Chronic superior endplate compression deformity at L3 is unchanged. Visualized portions of the sacrum are intact. Mild degenerative disc disease. No spinal canal or foraminal stenosis. Soft tissues: Unremarkable. IMPRESSION: No acute abnormality. Electronically signed by: Keanu Keita MD 11/16/23 23:38 PM [facility] Narrative Prior records/ancillary studies reviewed and summarized above. Nursing notes reviewed. Additional history obtained from EMS The patient's history was concerning for weakness with frequent falls. Differential diagnosis: Etiologies such as metabolic, substance abuse, infection, hypo/hyperglycemia, electrolyte abnormalities, cardiac sources, intracerebral event, toxicologic, neurologic, as well as others were entertained. Physical examination: As above. ER treatment provided: IV Lock An order was placed for continuous cardiac monitoring. The monitor shows a rate of 60-100 with a sinus rhythm per my interpretation. IV fluids, Tylenol was ordered Magnesium, dextrose Rocephin for UTI and prior UC was reviewed prior ER visit notes were reviewed. Patient was seen here yesterday. No acute findings noted. On reassessment the patient felt better. Diagnostics interpretation by me: ECG: Ordered for weakness EKG: Normal sinus, occasional PVC, no acute ST-T wave changes. Impression normal sinus rhythm with occasional PVC independent interpreted by myself The labs Independently Interpreted by myself revealed hypoglycemia patient was given dextrose. Low magnesium patient was given magnesium. Acute kidney injury. Patient was hydrated as above Urine concerning for infection sent for culture. Prior culture was reviewed Close Micro Urine Specimen 11/17/23 Urine Culture - Pending Micro Urine Specimen 07/21/23 Urine Culture - Final Micro Blood Specimen 07/21/23 Aerobic Blood Culture - Final Micro Blood Specimen 07/21/23 Aerobic Blood Culture - Final Micro Blood Specimen 03/04/23 Aerobic Blood Culture - Final Micro Blood Specimen 03/04/23 Aerobic Blood Culture - Final Micro Urine Specimen 02/04/23 Urine Culture - Final Micro Blood Specimen 10/22/22 Aerobic Blood Culture - Final Micro Blood Specimen 10/22/22 Aerobic Blood Culture [place] [address] / Director: Elan Dee M.D. Clinical Laboratory Report Name: SANDHYA HALL Clifford Acct: [id number] Status: DIS IN : 1955 [facility] [place] Date: 07/23/23 Age: 68 Sex: F Dis Date: 07/26/23 Loc: Medical/Surgical/Ortho [address] [place] [address]/Bed: N375-2 Spec: [id number] Collected: 07/21/23 Received: 07/21/23 [facility] Dr: Sanjiv Carreon M.D. Copy To: Kendall Dill MD Source: Urine,Clean Catch OV Order: Ordered: Urine Culture Procedure Result Verified Site Urine Culture Final 07/24/23 Organism 1 Klebsiella pneumoniae [place] Count >100,000 CFU/ml Sens Sensitivities to Follow Kleb pneum RX M.I.C. --- --------- Amox/Clav S <=8/4 Amp/Sul R >16/8 Cefazolin S 4 Cefepime S <=2 Ceftriaxone S <=1 Ciprofloxacin S <=0.25 Ertapenem S <=0.5 Gentamicin S <=4 Levofloxacin S <=0.5 Meropenem S <=1 Nitrofurantoin S <=32 Tobramycin S <=4 Trimeth/Sulfa S <=2/38 Pip/Tazo I 64 S = SENSITIVE I = INTERMEDIATE R = RESISTANT Imaging studies: Chest x-ray with no acute consolidation, pneumothorax or free air per my independent interpretation L-spine CT was read as negative by radiology Consultation: A consultation was placed with the hospitalist. The case was discussed and diagnostics were reviewed. The patient was evaluated in the ER for further treatment. Exam and history seem consistent with increasing weakness with frequent falls with acute kidney injury and electrolyte abnormalities. Patient feels too weak to go home. Medicine was consulted and case discussed. She will admitted to the medical service for further evaluation and workup. By the evaluation outlined above emergent etiologies such as cardiac sources, intracerebral event, toxologic, neurologic, metabolic, as well as others were deemed relatively unlikely. The pt informed about the findings as listed above. All questions were answered and pleased with the treatment. The chart was completed utilizing [employer] voice recognition software. Grammatical errors, random word insertions, pronoun errors, and incomplete sentences are an occassional consequence of this system due to software limitations, ambient noise, and hardware issues. Any formal questions or concerns about the content, text, or information contained within the body of this dictation should be directly addressed to the physician school health assistant for clarification. Impression & Plan Acute kidney injury, Weakness, Low back pain, Hypomagnesemia, Acute UTI Discharge Plan Visit Data Chief Complaint: Back Injury/Pain Stated Complaint: BACK PAIN 9/10 PAIN ED Provider: Andre Schumacher ED Midlevel Provider: Emily Montoya Discharge Problem: Acute kidney injury, Weakness, Low back pain, Hypomagnesemia, Acute UTI Patient Disposition: Admitted As Inpatient Condition: Fair Forms Stand Alone Forms: My [facility] [place] [employer] Prescriptions Prescriptions: No Action lisinopril 10 mg Tablet 10 mg PO HS Hold Instructions: Resume on 08/01/23. Continue to hold until your appointment with your primary care provider. Rx Instructions: pt states only take if blood pressure elevated alendronate 70 mg tablet 70 mg PO Q7D Rx Instructions: Mondays ondansetron 4 mg tablet,disintegrating 4 mg PO Q6H PRN (Reason: nausea and vomiting) Qty: 14 0RF quetiapine 100 mg tablet 100 mg PO HS Rx Instructions: pt states "takes 100mg po qhs" original directions: take 50mg po qhs hydroxyzine pamoate 100 mg Capsule 100 mg PO HS Rx Instructions: Patient states she takes 100mg along with Hydroxyzine 50mg every night at bedtime sertraline [Zoloft] 100 mg Tablet 100 mg PO HS valacyclovir 1 gram Tablet 1,000 mg PO DIRECTED PRN (Reason: Cold Sores) cholecalciferol (vitamin D3) 125 mcg (5,000 unit) Tablet 125 mcg PO QAM Qty: 90 0RF folic acid 1 mg Tablet 1 mg PO QAM Qty: 90 0RF thiamine HCl (vitamin B1) 100 mg Tablet 100 mg PO QAM Qty: 90 0RF acetaminophen [Tylenol Extra Strength] 500 mg Tablet 1,000 mg PO BID PRN (Reason: Pain (Scale Score 1-3)) Referrals Referrals: Emily Diehl PA-C [Primary Care Provider] -
[2023-11-16] MEDS: SODIUM CHLORIDE 0.9% 500 ML IV SCH (22:47)
[2023-11-16] MEDS: ACETAMINOPHEN 1,000 MG/100 ML VIAL IV STA (22:50)
[2023-11-16 23:04] LABS: Basophils # (auto) 0.04 K/uL (0.00-0.20); Basophils % (auto) 0.3 %; Eosinophils # (auto) 0.02 K/uL (0.00-0.50); Eosinophils % (auto) 0.2 %; Hematocrit (blood only) 32.6 % (37.0-47.0); Hemoglobin 10.5 g/dl (12.0-16.0); Immature Granulocytes # (auto) 0.06 K/uL (0.01-0.20); Immature Granulocytes % (auto) 0.5 %; Lymphocytes # (auto) 0.66 K/uL (1.20-3.40); Lymphocytes % (auto) 5.4 %; Mean Corpuscular Hemoglobin 31.5 pg (25.0-34.0); Mean Corpuscular Hgb Conc 32.2 g/dL (32.0-36.0); Mean Corpuscular Volume 97.9 fL (80.0-100.0); Mean Platelet Volume 9.2 fL (9.4-12.4); Monocytes # (auto) 0.93 K/uL (0.11-0.59); Monocytes % (auto) 7.6 %; Neutrophils # (auto) 10.51 K/uL (1.40-6.50); Platelet Count 314 K/uL (130-400); RDW Coefficient of Variation 17.4 % (11.5-14.5); RDW Standard Deviation 62.5 fL (36.4-46.3); Red Blood Count 3.33 M/uL (4.20-5.40); White Blood Count 12.22 K/ul (4.8-10.8)
[2023-11-16 23:21] LABS: Albumin Globulin Ratio 1.3 (0.9-2); Albumin Level 3.5 gm/dl (3.4-5.0); BUN Creatinine Ratio 18.4 (10-20); Bilirubin,Total 0.6 mg/dl (0.2-1.0); Calcium 9.2 mg/dl (8.6-10.3); Creatinine Clr Calc Pharmacy 32.5 ml/min; Est GFR (African American) 38.6 ml/min; Est GFR (Non-African American) 33.3 ml/min; Globulin 2.6 gm/dl (2.5-4.0); Magnesium 1.5 mg/dl (1.7-2.4); Potassium 4.5 mmol/L (3.5-5.1); Total Protein 6.1 gm/dl (6.0-8.3)
--- NOTE | 2023-11-16 23:39 | CT Scan Report ---
Exam(s): CT L SPINE EXAM: CT Lumbar Spine Without Intravenous Contrast CLINICAL HISTORY: Reason for exam: fall, pain. TECHNIQUE: Axial computed tomography images of the lumbar spine without intravenous contrast. CTDI is 34 mGy and DLP is 846 mGy-cm. Automated exposure control was utilized for the study. A dose lowering technique was utilized adhering to the principles of ALARA. COMPARISON: No relevant prior studies available. FINDINGS: Vertebrae: No acute fracture or malalignment. Chronic superior endplate compression deformity at L3 is unchanged. Visualized portions of the sacrum are intact. Mild degenerative disc disease. No spinal canal or foraminal stenosis. Soft tissues: Unremarkable. IMPRESSION: No acute abnormality. Electronically signed by: Keanu Keita MD 11/16/23 23:38 PM
[2023-11-16 23:43] LABS: Thyroid Stimulating Hormone 1.472 uIu/ml (0.300-4.500); Troponin I High Sensitivity 13.9 pg/ml (0-14)
[2023-11-16] MEDS: DEXTROSE 50% 50 ML SYRINGE IV ONE (23:59)
[2023-11-17] MEDS: SODIUM CHLORIDE 0.9% 500 ML IV ONE (00:11)
[2023-11-17] MEDS: MAGNESIUM SULFATE / D5W 1 GM/100 ML BAG IV SCH (00:14)
--- NOTE | 2023-11-17 00:19 | History & Physical Report ---
Date of Service November 16, 2023 Assessment & Plan (1) Hypomagnesemia: (2) Low back pain: (3) Weakness: (4) Fall: (5) GERD (gastroesophageal reflux disease): (6) Alcohol use disorder: Plan Weakness | Recurrent Falls | Chronic Lower Back Pain -Patient notes that recent injections for her LBP only lasted for a short period of time -Has had three falls in the past few days, is not able to get up on her own after she has fallen. CK 823, elevated. -Denies dizziness/lightheadedness prior to falls except for once presyncopal episode on the toilet after straining -CT lumbar spine completed, no acute findings -Analgesia with Tylenol (first line) and Tramadol (second line) -Lives independently and makes her own meals, although states she knows she is not eating well -Notes in the past day she ate an orange, two eggs with toast, leftover Halloween candy, and a hamburger -BSG of 54 in ED, given dextrose. Suspect some degree of malnutrition contributing to weakness. 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 -Leukocytosis noted, UA with leukocyte esterase and nitrites however no urinary symptoms. ED ordered 1x Ceftriaxone, follow up on urine culture. -Will repeat CBC in a.m. -Fall precautions ordered, PT/OT consulted. May need rehab stay and/or placement as she is not currently able to care for herself Acute Kidney Injury -Cr 1.58 today, significant increase from 11/14 (Cr 0.87) -Suspect this is secondary to poor PO intake -Ordered IV fluids with LR @ 100ml/h -Monitor daily BMP, avoid nephrotoxic medications. Will hold home lisinopril for now Alcohol Use Disorder -Blood alcohol level negative on arrival -Patient endorses last drink was three days ago, notes she is working on cutting back and will try to drink three drinks per day when she drinks -AW protocol to monitor for symptoms of alcohol withdrawal Acute Kidney Injury -Cr 1.58 today, significant increase from 11/14 (Cr 0.87) -Suspect this is secondary to poor PO intake -Ordered IV fluids with LR @ 100ml/h -Monitor daily BMP, avoid nephrotoxic medications. Will hold home lisinopril for now GERD -Continue PPI and famotidine Admit to med/tele VTE Prophylaxis: heparin Diet: Regular Code Status: Full Code History of Present Illness Primary Care Provider: Emily Fazal Nielsen is a 68 year-old female with a past medical history of gastric bypass, alcohol use disorder, GERD, depression who presents to the ED after recurrent falls and worsening back pain. She was seen in the ED on 11/14 for similar symptoms. She notes that her chronic lower back pain has been worsening and this makes ambulation difficult, subsequently she has gotten weaker. Notes that she is unable to get up off the ground after a fall and has to call EMS, has not been down for more than approximately 15 minutes. She notes that she is not doing a great job with eating and describes herself as "anorexic" because she does not enjoy cooking for herself and eats very little. She states she will drink some water or orange crush soda, unsure of her daily fluid intake. Denies any recent URI symptoms, nausea/vomiting, urinary symptoms, chest pain or shortness of breath. Denies changes in bowel habits and no blood in stool. Patient notes that she had an injection with Dr. Chu on October 14, which provided some relief for about two weeks but the pain is just as bad now. Notes that she takes Tylenol 2-3 times per day which helps "some" but does not fully relieve symptoms. Notes that she has been prescribed Tramadol in the past for this which has been helpful. She states she has told before she cannot take Tramadol and Naltrexone together so she was no longer prescribed them, however she states she never took these medications together. Patient endorses that her last drink was three days ago, denies any history of alcohol withdrawal seizures. States she is working on reducing her alcohol consumption and tries to limit herself to three drinks on days when she is drinking alcohol. She notes that her daughter lives in [place] [place], states she sees her daughter and her grandchildren a few times per month but typically stays at home in her own apartment. ED Course: -CT lumbar spine -CBC, CMP, CK, trop Allergies Allergy/AdvReac Type Severity Reaction Status Date / Time No Known Allergies Allergy Verified 11/16/23 23:27 Home Medications Medication Instructions Recorded Confirmed Type quetiapine 100 mg tablet 100 mg PO HS 10/22/22 11/16/23 History hydroxyzine pamoate 100 mg capsule 100 mg PO HS 01/07/23 11/16/23 History sertraline 100 mg tablet (Zoloft) 100 mg PO HS 01/07/23 11/16/23 History lisinopril 10 mg tablet 10 mg PO HS 01/31/23 11/16/23 History alendronate 70 mg tablet 70 mg PO Q7D 04/26/23 11/16/23 History ondansetron 4 mg disintegrating 4 mg PO Q6H PRN nausea and 04/26/23 11/16/23 Rx tablet vomiting #14 tabs valacyclovir 1 gram tablet 1,000 mg PO DIRECTED PRN Cold 07/21/23 11/16/23 History Sores cholecalciferol (vitamin D3) 125 125 mcg PO QAM #90 tabs 10/26/23 11/16/23 Rx mcg (5,000 unit) tablet folic acid 1 mg tablet 1 mg PO QAM #90 tabs 10/26/23 11/16/23 Rx thiamine HCl (vitamin B1) 100 mg 100 mg PO QAM #90 tabs 10/26/23 11/16/23 Rx tablet acetaminophen 500 mg tablet 1,000 mg PO BID PRN Pain (Scale 11/16/23 11/16/23 History (Tylenol Extra Strength) Score 1-3) Past Med/Surg History Medical History Osteoarthritis Acid reflux Anemia History of depression Insomnia Hypertension Surgical History H/O gastric bypass History of section x 1 History of open reduction and internal fixation (ORIF) procedure right wrist--hardware in place History of total left hip replacement History of colonoscopy History of esophagogastroduodenoscopy (EGD) History of wisdom tooth extraction History of cholecystectomy H/O: hysterectomy Family History Other No family history of adverse response to anesthesia Social History Smoking Status: Never smoker Second Hand Exposure: Yes (as a child); Do You Dip or Chew Tobacco: No; Hx Alcohol Use: Yes Alcohol type: hard liquor Hx Substance Use: No Preferred Language: Nigerian Communication Ability: Effective Marine Insulator Required: No Beliefs That Will Affect Care: None Current Living Situation: Alone Current Living Situation Comment: [facility] - independent living - can call for assistance with call alert Other Information That Helps Us Care for You: No Feels Safe at Home: Yes Safety Concerns: Feels Safe At This Time Assistive Devices: Cane, Raised Toilet Seat and Walker Review of Systems Review of Systems: As per HPI Physical Exam Constitutional: WD/WN, vitals as above Eyes: + anicteric sclerae and reactive pupils; no conjunctival abnormality ENMT: Ears: no external ear abnormality Nose: no external nose abnormality Moist mucous membranes Respiratory: normal respiratory effort, lungs clear to auscultation Cardiovascular: RRR, no murmur, no edema Gastrointestinal (Abdomen): Inspection/Auscultation: abdomen normal to inspection; abdomen not distended Percussion/Palpation: abdomen soft; abdomen nontender Musculoskeletal: Moves all limbs independently, pain with palpation of right sided lumbar paraspinal musculature. Skin: Multiple areas of ecchymosis on bilateral upper extremities, bruise also noted on forehead Neurologic: no focal motor deficits Psychiatric: A+Ox3, euthymic affect Results & Data Results & Data Vital Signs (Past 12 Hours) Vital Signs Temp Pulse Pulse Resp BP BP Pulse Ox 11/16/23 23:13 89 11/16/23 23:00 96 H 18 122/64 98 11/16/23 22:46 93 11/16/23 22:20 36.7 C 96 H 19 94/70 L 92 O2 Del Method 11/16/23 23:13 11/16/23 23:00 Room Air 11/16/23 22:46 Room Air 11/16/23 22:20 Room Air Supervising Physician Co-Signing Physician Notes Attending addendum: I have physically seen this patient, have supervised the medical residents activities, and agree with the H&P unless as otherwise noted. Assessment and Plan: Rhabdomyolysis/acute kidney injury CK 823 Creatinine 1.58 with baseline 0.87 Status post 1 L normal saline in the ED Continue IV fluids as noted, recheck laboratories in a.m. Because of increased CK is recurrent falls as noted below Generalized weakness/recurrent falls/chronic low back pain- Injections no longer as effective as before 3 falls in the past few days Hypoglycemia may be a contributing factor May be an element of peripheral neuropathy and his direct alcohol effect Monitor for possible Korsakoff's Consult PT/OT Alcohol use disorder- Alcohol less than 10 on arrival Reports last drink was 3 days ago AWSS protocol Cessation counseling Thiamine, folic acid and multivitamins mentation Resident Activity Tracking Resident Involvement: Resident Care Provided Care Provided: Adult Hospital Medicine (4) Fall Encounter type: initial encounter Qualified Code(s): W19.XXXA - Unspecified fall, initial encounter
[2023-11-17 01:23] LABS: Amphetamines+Metham, Urine Neg (Neg); Barbiturates, Urine Neg (Neg); Benzodiazepine, Urine Neg (Neg); Cocaine, Urine Neg (Neg); MDMA (Ecstacy), Urine Neg (Neg); Marijuana, Urine Neg (Neg); Methadone, Urine Neg (Neg); Opiate, Urine Pos (Neg); Phencyclidine, Urine Neg (Neg)
[2023-11-17 01:32] LABS: Appearance Urine Turbid (Clear); Bacteria Urine Automated 4+ (None Seen); Bilirubin Urine Negative (Negative); Blood Urine Negative (Negative); Color Urine Yellow; Glucose Urine UA Negative (Negative); Ketones Urine 1+ (Negative); Leukocyte Esterase Urine 2+ (Negative); Nitrite Urine Positive (Negative); Protein Urine Trace (Negative); RBC Urine Automated 0-2 /hpf (0-2); Specific Gravity Urine 1.019 (1.000-1.030); Urobilinogen Urine Negative (Negative); WBC Urine Automated >50 /hpf (0-5)
[2023-11-17] MEDS: cefTRIAXone SODIUM 2,000 MG/50 ML BAG IV STA (02:25)
[2023-11-17] MEDS ORDERED: POLYETHYLENE (MIRALAX) 17 GM PACK PO PRN (03:19)
[2023-11-17] MEDS ORDERED: ONDANSETRON INJ 2 MG/ML 2 ML VIAL IV PRN (03:19)
[2023-11-17] MEDS ORDERED: LORazepam 1 MG in SYRINGE 0.5 ML IV PRN (03:19)
[2023-11-17] MEDS: LACTATED RINGER'S 1,000 ML IV SCH (03:35)
--- NOTE | 2023-11-17 06:39 | XRay Report ---
XR chest 1V portable CLINICAL HISTORY: weakness COMPARISON STUDY: Chest CT March 05, 2023. Chest radiograph and right rib series November 15, 2023. FINDINGS: Lung volumes are normal. Lungs are clear. There is no pneumothorax or pleural effusion. Car diac size is normal. Mediastinal contours are normal. There is no evidence for pulmonary edema. IMPRESSION: No acute cardiopulmonary findings. ACT 112: Negative or not required by law. Electronically signed by: Ajit Young M.D. 11/17/2023 6:38 AM
[2023-11-17] MEDS: THIAMINE HCL 100 MG TAB PO SCH (08:05)
[2023-11-17] MEDS: FOLIC ACID 1 MG TAB PO SCH (08:06)
[2023-11-17] MEDS: CHOLECALCIFEROL 125 MCG (5,000 UNITS) TAB PO SCH (08:06)
[2023-11-17] MEDS: ACETAMINOPHEN 500 MG TAB PO PRN (08:08)
[2023-11-17] MEDS: HEPARIN SOD 5,000 UNIT/0.5 ML VIAL SQ SCH (08:09)
[2023-11-17 08:15] LABS: Basophils # (auto) 0.03 K/uL (0.00-0.20); Basophils % (auto) 0.3 %; Eosinophils # (auto) 0.08 K/uL (0.00-0.50); Eosinophils % (auto) 0.9 %; Hematocrit (blood only) 28.8 % (37.0-47.0); Hemoglobin 9.1 g/dl (12.0-16.0); Immature Granulocytes # (auto) 0.05 K/uL (0.01-0.20); Immature Granulocytes % (auto) 0.5 %; Lymphocytes # (auto) 1.19 K/uL (1.20-3.40); Lymphocytes % (auto) 12.8 %; Mean Corpuscular Hemoglobin 31.3 pg (25.0-34.0); Mean Corpuscular Hgb Conc 31.6 g/dL (32.0-36.0); Mean Platelet Volume 9.2 fL (9.4-12.4); Monocytes # (auto) 1.07 K/uL (0.11-0.59); Monocytes % (auto) 11.5 %; Neutrophils # (auto) 6.91 K/uL (1.40-6.50); Platelet Count 293 K/uL (130-400); RDW Coefficient of Variation 17.7 % (11.5-14.5); RDW Standard Deviation 63.7 fL (36.4-46.3); Red Blood Count 2.91 M/uL (4.20-5.40); White Blood Count 9.33 K/ul (4.8-10.8)
[2023-11-17 08:20] LABS: Bilirubin,Total 0.3 mg/dl (0.2-1.0); Calcium 8.4 mg/dl (8.6-10.3); Potassium 4.1 mmol/L (3.5-5.1)
[2023-11-17 08:23] LABS: Albumin Globulin Ratio 1.3 (0.9-2); BUN Creatinine Ratio 22.5 (10-20); Creatinine Clr Calc Pharmacy 42.8 ml/min; Est GFR (African American) 53.8 ml/min; Est GFR (Non-African American) 46.4 ml/min; Globulin 2.4 gm/dl (2.5-4.0); Total Protein 5.4 gm/dl (6.0-8.3)
--- NOTE | 2023-11-17 08:35 | Electrocardiogram Report ---
Test Reason : Blood Pressure : / mmHG Vent. Rate : 094 BPM Atrial Rate : 094 BPM P-R Int : 172 ms QRS Dur : 082 ms QT Int : 382 ms P-R-T Axes : -08 -21 031 degrees QTc Int : 477 ms Sinus rhythm with occasional Premature ventricular complexes Minimal voltage criteria for LVH, may be normal variant Borderline ECG When compared with ECG of 15-NOV-2023 12:15, Premature ventricular complexes are now Present Confirmed by Wade Andersen ([id number]) on 11/17/2023 8:34:56 AM Referred By: REFERRED SELF Confirmed By:Jos Andersen
[2023-11-17 09:48] LABS: Magnesium 2.1 mg/dl (1.7-2.4)
--- NOTE | 2023-11-17 11:50 | Hospitalist Progress Note ---
Date of Service November 17, 2023 Assessment & Plan (1) Acute UTI: Plan: Previous cultures grew Klebsiella. Current urine culture is pending. Continue Rocephin for now, day 1 (2) Hypomagnesemia: Plan: Corrected with IV replacement. Magnesium level 2.1 currently (3) Acute kidney injury: Plan: Improving with IV fluids. Creatinine 1.5 on admission now down to 1.2. Baseline is 0.8 (4) Hypoglycemia: Plan: Present on admission. Now resolved (5) Low back pain: Plan: No significant symptoms at this time. Symptomatic care Plan To be determined. Await OT and PT evaluations Admission and Anticipated Discharge Date Admission Date: November 17, 2023 Subjective Alert and oriented. No new problems. She appears to have a UTI present on admission. Previous cultures grew Klebsiella. She is now on Rocephin. IV fluids have been tapered down. CK remains mildly elevated at 845. Creatinine improved to 1.2. Will continue IV fluids for now. PT and OT are ordered. Review of Systems 2 Review of Systems: Constitutional-no fever or chills ENT-no blurred vision, no double vision, no epistaxis, no sore throat Respiratory-no cough, no wheezing, no shortness of breath Cardiac-no palpitations, no chest pain, no syncope GI-no nausea, vomiting, diarrhea, melena, hematochezia -no urinary retention, no urinary incontinence, no dysuria, no hematuria Musculoskeletal-no joint pain, no muscle tenderness Skin-no bruising, no rashes, no pruritus Neuro-no isolated weakness, no paresthesia, no weakness Psych-no depression, no anxiety Physical Exam 2 Physical Exam: General-alert and oriented x3, no fever, no chills HEENT-head atraumatic and normocephalic, pupils equal and reactive to light, extraocular muscles intact Neck-no lymphadenopathy or thyromegaly, trachea midline Chest-clear to auscultation. No rales, wheezing or rhonchi Cardiac-regular rate and rhythm, normal S1 and S2 Abdomen-normal bowel sounds, no hepatosplenomegaly Extremities-no cyanosis, clubbing, or edema Neuro-cranial nerves II through XII intact, motor and sensory function within normal limits, strength symmetrical, no focal deficits Psych-normal affect, normal mood Results & Data Results & Data Vital Signs (Past 12 Hours) Vital Signs Temp Pulse Pulse Pulse Resp BP BP 11/17/23 11:28 36.8 C 89 16 95/61 L 11/17/23 07:55 36.6 C 87 16 89/62 L 11/17/23 06:52 89 11/17/23 03:19 36.4 C L 95 H 18 125/80 11/17/23 03:14 94 H 11/17/23 02:43 90 16 107/65 11/17/23 02:40 88 16 11/17/23 02:30 107/65 11/17/23 02:30 91 H 9 L 11/17/23 02:20 98 H 21 11/17/23 02:10 89 21 11/17/23 02:05 88/66 L 11/17/23 02:05 93 H 16 11/17/23 02:01 90 9 L 11/17/23 02:00 92 H 14 11/17/23 01:50 90 13 11/17/23 01:40 92 H 16 11/17/23 01:31 91 H 13 11/17/23 01:31 87/68 L 11/17/23 01:30 90 15 11/17/23 01:20 91 H 25 H 11/17/23 01:10 91 H 13 11/17/23 01:00 95 H 14 11/17/23 01:00 128/79 11/17/23 01:00 91 H 16 11/17/23 00:50 98 H 16 11/17/23 00:40 116 H 11/17/23 00:20 92 H 13 11/17/23 00:10 95 H 16 11/17/23 00:00 98/55 L 11/17/23 00:00 89 18 11/16/23 23:50 91 H 17 BP Pulse Ox O2 Del Method 11/17/23 11:28 95 Room Air 11/17/23 07:55 97 Room Air 11/17/23 06:52 11/17/23 03:19 99 Room Air 11/17/23 03:14 11/17/23 02:43 96 Room Air 11/17/23 02:40 11/17/23 02:30 11/17/23 02:30 96 11/17/23 02:20 11/17/23 02:10 11/17/23 02:05 11/17/23 02:05 11/17/23 02:01 11/17/23 02:00 11/17/23 01:50 11/17/23 01:40 11/17/23 01:31 11/17/23 01:31 11/17/23 01:30 11/17/23 01:20 11/17/23 01:10 11/17/23 01:00 11/17/23 01:00 11/17/23 01:00 128/79 96 Room Air 11/17/23 00:50 11/17/23 00:40 11/17/23 00:20 95 11/17/23 00:10 11/17/23 00:00 11/17/23 00:00 11/16/23 23:50 Laboratory Results 11/17/23 07:38 11/17/23 07:38 PG Care Time/CCT Total # of Minutes Spent Total Time Spent with Patient: Total time spent is greater than 50% in coordination of care (as documented) at patient's floor/unit and/or counseling patient: Coding Level of Care Code 49815 SUB INP/OBS CARE 3/50MIN Diagnoses Acute UTI N39.0 Hypomagnesemia E83.42 Acute kidney injury N17.9 Hypoglycemia E16.2 Low back pain M54.50
[2023-11-17] MEDS: traMADol HCL 50 MG TABLET PO PRN (12:21)
[2023-11-17] MEDS: hydrOXYzine HCl 25 MG TAB PO SCH (19:58)
[2023-11-17] MEDS: SERTRALINE HCL 100 MG TABLET PO SCH (19:59)
[2023-11-17] MEDS: QUEtiapine FUMARATE 100 MG TABLET PO SCH (19:59)
[2023-11-18] MEDS: cefTRIAXone SODIUM 1,000 MG/50 ML BAG IV SCH (00:25)
[2023-11-18 07:19] LABS: Basophils # (auto) 0.02 K/uL (0.00-0.20); Basophils % (auto) 0.3 %; Eosinophils # (auto) 0.12 K/uL (0.00-0.50); Eosinophils % (auto) 1.8 %; Hematocrit (blood only) 28.9 % (37.0-47.0); Hemoglobin 9.8 g/dl (12.0-16.0); Immature Granulocytes # (auto) 0.03 K/uL (0.01-0.20); Immature Granulocytes % (auto) 0.5 %; Lymphocytes # (auto) 1.79 K/uL (1.20-3.40); Lymphocytes % (auto) 27.3 %; Mean Corpuscular Hemoglobin 31.7 pg (25.0-34.0); Mean Corpuscular Hgb Conc 33.9 g/dL (32.0-36.0); Mean Corpuscular Volume 93.5 fL (80.0-100.0); Mean Platelet Volume 9.6 fL (9.4-12.4); Monocytes # (auto) 1.03 K/uL (0.11-0.59); Monocytes % (auto) 15.7 %; Neutrophils # (auto) 3.57 K/uL (1.40-6.50); Neutrophils % (auto) 54.4 %; Platelet Count 307 K/uL (130-400); RDW Standard Deviation 61.7 fL (36.4-46.3); Red Blood Count 3.09 M/uL (4.20-5.40); White Blood Count 6.56 K/ul (4.8-10.8)
[2023-11-18 07:37] LABS: Albumin Globulin Ratio 1.3 (0.9-2); Albumin Level 3.4 gm/dl (3.4-5.0); BUN Creatinine Ratio 22.4 (10-20); Bilirubin,Total 0.3 mg/dl (0.2-1.0); Calcium 9.2 mg/dl (8.6-10.3); Creatinine Clr Calc Pharmacy 68.2 ml/min; Est GFR (African American) 93.4 ml/min; Est GFR (Non-African American) 80.6 ml/min; Globulin 2.6 gm/dl (2.5-4.0); Magnesium 1.7 mg/dl (1.7-2.4); Potassium 3.7 mmol/L (3.5-5.1)
[2023-11-18] MEDS: MAGNESIUM OXIDE 400 MG TAB PO SCH (09:35)
--- NOTE | 2023-11-18 12:03 | Hospitalist Progress Note ---
Date of Service November 18, 2023 Assessment & Plan (1) Acute UTI: Plan: Gram-negative bacilli isolated. Previous cultures grew Klebsiella. Continue Rocephin for now, day 2. Awaiting final identification and sensitivities. (2) Hypomagnesemia: Plan: Corrected with IV replacement. Magnesium level is downtrending again and oral replacement ordered. (3) Acute kidney injury: Plan: Resolved with IV fluids. Creatinine 1.5 on admission now normalized at 0.7. She no longer requires IV fluids. (4) Hypoglycemia: Plan: Present on admission. Now resolved (5) Low back pain: Plan: No significant symptoms at this time. Symptomatic care Plan IPR placement at discharge within the next day or 2 when arrangements are finalized. She is medically stable for discharge and will be switched to oral antibiotic. Admission and Anticipated Discharge Date Admission Date: November 17, 2023 Subjective Alert and oriented. No distress. Urine culture revealing gram-negative bacilli. Final identification and sensitivities pending. She remains on Rocephin, day 2. CK has decreased to 434. Potassium is downtrending again and magnesium oxide has been ordered. OT recommends IPR placement at discharge and the patient is in agreement with this. Creatinine has improved to 0.7. Review of Systems 2 Review of Systems: Constitutional-no fever or chills ENT-no blurred vision, no double vision, no epistaxis, no sore throat Respiratory-no cough, no wheezing, no shortness of breath Cardiac-no palpitations, no chest pain, no syncope GI-no nausea, vomiting, diarrhea, melena, hematochezia -no urinary retention, no urinary incontinence, no dysuria, no hematuria Musculoskeletal-no joint pain, no muscle tenderness Skin-no bruising, no rashes, no pruritus Neuro-no isolated weakness, no paresthesia, no weakness Psych-no depression, no anxiety Physical Exam 2 Physical Exam: General-alert and oriented x3, no fever, no chills HEENT-head atraumatic and normocephalic, pupils equal and reactive to light, extraocular muscles intact Neck-no lymphadenopathy or thyromegaly, trachea midline Chest-clear to auscultation. No rales, wheezing or rhonchi Cardiac-regular rate and rhythm, normal S1 and S2 Abdomen-normal bowel sounds, no hepatosplenomegaly Extremities-no cyanosis, clubbing, or edema Neuro-cranial nerves II through XII intact, motor and sensory function within normal limits, strength symmetrical, no focal deficits Psych-normal affect, normal mood Results & Data Results & Data Vital Signs (Past 12 Hours) Vital Signs Temp Pulse Pulse Resp BP Pulse Ox O2 Del Method 11/18/23 11:24 36.5 C 79 18 126/84 96 Room Air 11/18/23 07:33 36.6 C 81 18 106/70 96 Room Air 11/18/23 07:19 77 11/18/23 04:11 36.8 C 83 20 110/72 97 Room Air 11/18/23 00:13 98 H Laboratory Results 11/18/23 05:32 11/18/23 05:32 PG Care Time/CCT Total # of Minutes Spent Total Time Spent with Patient: Total time spent is greater than 50% in coordination of care (as documented) at patient's floor/unit and/or counseling patient: Coding Level of Care Code 09290 SUB INP/OBS CARE 3/50MIN Diagnoses Acute UTI N39.0 Hypomagnesemia E83.42 Acute kidney injury N17.9 Hypoglycemia E16.2 Low back pain M54.50
--- NOTE | 2023-11-18 19:08 | Billing Data ---
Date of Service November 18, 2023 Coding Level of Care Code 26824 INT INP/OBS CARE
[2023-11-19 06:35] LABS: Albumin Globulin Ratio 1.3 (0.9-2); Albumin Level 2.8 gm/dl (3.4-5.0); BUN Creatinine Ratio 19.5 (10-20); Bilirubin,Total 0.3 mg/dl (0.2-1.0); Calcium 8.3 mg/dl (8.6-10.3); Creatinine Clr Calc Pharmacy 67.2 ml/min; Est GFR (Non-African American) 79.3 ml/min; Globulin 2.1 gm/dl (2.5-4.0); Magnesium 1.5 mg/dl (1.7-2.4); Potassium 3.9 mmol/L (3.5-5.1); Total Protein 4.9 gm/dl (6.0-8.3)
[2023-11-19] MEDS: MAGNESIUM SULFATE / D5W 1 GM/100 ML BAG IV SCH (09:34)
--- NOTE | 2023-11-19 12:52 | Hospitalist Progress Note ---
Date of Service November 19, 2023 Assessment & Plan (1) Acute UTI: Plan: E. coli isolated. Pansensitive. Continue Rocephin, day 3. (2) Hypomagnesemia: Plan: Magnesium level is low again despite oral replacement. Additional parenteral replacement ordered today, November 18. Serial labs. (3) Acute kidney injury: Plan: Resolved with IV fluids. Creatinine 1.5 on admission now normalized at 0.7. She no longer requires IV fluids. (4) Hypoglycemia: Plan: Present on admission. Now resolved (5) Low back pain: Plan: No significant symptoms at this time. Symptomatic care Plan [facility] placement is pending. She is medically stable for discharge and will be switched to oral antibiotic when she leaves for a few more days. Admission and Anticipated Discharge Date Admission Date: November 17, 2023 Subjective Alert and oriented. No distress. Magnesium has dropped to 1.5 despite oral replacement. Parenteral IV magnesium ordered today. Activity has been advanced. E. coli isolated in the urine which is pansensitive. Today is day 3 of parenteral Rocephin therapy. CK has normalized to 111. Creatinine remains normal at 0.7. Placement at [facility] is pending. Review of Systems 2 Review of Systems: Constitutional-no fever or chills ENT-no blurred vision, no double vision, no epistaxis, no sore throat Respiratory-no cough, no wheezing, no shortness of breath Cardiac-no palpitations, no chest pain, no syncope GI-no nausea, vomiting, diarrhea, melena, hematochezia -no urinary retention, no urinary incontinence, no dysuria, no hematuria Musculoskeletal-no joint pain, no muscle tenderness Skin-no bruising, no rashes, no pruritus Neuro-no isolated weakness, no paresthesia, no weakness Psych-no depression, no anxiety Physical Exam 2 Physical Exam: General-alert and oriented x3, no fever, no chills HEENT-head atraumatic and normocephalic, pupils equal and reactive to light, extraocular muscles intact Neck-no lymphadenopathy or thyromegaly, trachea midline Chest-clear to auscultation. No rales, wheezing or rhonchi Cardiac-regular rate and rhythm, normal S1 and S2 Abdomen-normal bowel sounds, no hepatosplenomegaly Extremities-no cyanosis, clubbing, or edema Neuro-cranial nerves II through XII intact, motor and sensory function within normal limits, strength symmetrical, no focal deficits Psych-normal affect, normal mood Results & Data Results & Data Vital Signs (Past 12 Hours) Vital Signs Temp Pulse Pulse Resp BP Pulse Ox O2 Del Method 11/19/23 11:22 36.5 C 80 15 144/85 H 95 Room Air 11/19/23 08:00 Room Air 11/19/23 07:38 36.3 C L 96 H 15 133/84 97 Room Air 11/19/23 07:00 70 11/19/23 03:12 36.6 C 70 18 105/71 94 Room Air Laboratory Results 11/18/23 05:32 11/19/23 05:37 PG Care Time/CCT Total # of Minutes Spent Total Time Spent with Patient: Total time spent is greater than 50% in coordination of care (as documented) at patient's floor/unit and/or counseling patient: Coding Level of Care Code 84401 SUB INP/OBS CARE 3/50MIN Diagnoses Acute UTI N39.0 Hypomagnesemia E83.42 Acute kidney injury N17.9 Hypoglycemia E16.2 Low back pain M54.50
[2023-11-19 13:51] LABS: Codeine Urine NEGATIVE ng/mL (<50); Hydrocodone Urine NEGATIVE ng/mL (<50); Hydromor Urine NEGATIVE ng/mL (<50); Morphine Urine >10000 ng/mL (<50); Norhydrocodone Conf Ur NEGATIVE ng/mL (<50); Noroxycodone Urine NEGATIVE ng/mL (<50); Oxycodone Urine NEGATIVE ng/mL (<50); Oxymorph Urine NEGATIVE ng/mL (<50)
--- NOTE | 2023-11-20 12:09 | Hospitalist Progress Note ---
Date of Service November 20, 2023 Assessment & Plan (1) Acute UTI: Plan: E. coli isolated. Pansensitive. Continue Rocephin, day 4. (2) Hypomagnesemia: Plan: Magnesium level is now normal. She received both parenteral and oral magnesium yesterday, November 18. Will follow. Serial labs. (3) Acute kidney injury: Plan: Resolved with IV fluids. Creatinine 1.5 on admission now normalized at 0.7. She no longer requires IV fluids. (4) Hypoglycemia: Plan: Present on admission. Now resolved (5) Low back pain: Plan: No significant symptoms at this time. Symptomatic care Plan [facility] placement is pending. She is medically stable for discharge Admission and Anticipated Discharge Date Admission Date: November 17, 2023 Subjective Alert and oriented. Awaiting insurance authorization for eventual disposition to [facility]. Today is day 4 of Rocephin. I do not think she will need any further antibiotics for the UTI at the time of discharge. Review of Systems 2 Review of Systems: Constitutional-no fever or chills ENT-no blurred vision, no double vision, no epistaxis, no sore throat Respiratory-no cough, no wheezing, no shortness of breath Cardiac-no palpitations, no chest pain, no syncope GI-no nausea, vomiting, diarrhea, melena, hematochezia -no urinary retention, no urinary incontinence, no dysuria, no hematuria Musculoskeletal-no joint pain, no muscle tenderness Skin-no bruising, no rashes, no pruritus Neuro-no isolated weakness, no paresthesia, no weakness Psych-no depression, no anxiety Physical Exam 2 Physical Exam: General-alert and oriented x3, no fever, no chills HEENT-head atraumatic and normocephalic, pupils equal and reactive to light, extraocular muscles intact Neck-no lymphadenopathy or thyromegaly, trachea midline Chest-clear to auscultation. No rales, wheezing or rhonchi Cardiac-regular rate and rhythm, normal S1 and S2 Abdomen-normal bowel sounds, no hepatosplenomegaly Extremities-no cyanosis, clubbing, or edema Neuro-cranial nerves II through XII intact, motor and sensory function within normal limits, strength symmetrical, no focal deficits Psych-normal affect, normal mood Results & Data Results & Data Vital Signs (Past 12 Hours) Vital Signs Temp Pulse Resp BP Pulse Ox O2 Del Method 11/20/23 09:58 36.5 C 92 H 18 127/80 97 Room Air 11/20/23 08:00 Room Air 11/20/23 07:52 36.6 C 70 15 146/86 H 97 Room Air Laboratory Results 11/18/23 05:32 11/19/23 05:37 PG Care Time/CCT Total # of Minutes Spent Total Time Spent with Patient: Total time spent is greater than 50% in coordination of care (as documented) at patient's floor/unit and/or counseling patient: Coding Level of Care Code 34008 SUB INP/OBS CARE 2/35MIN Diagnoses Acute UTI N39.0 Hypomagnesemia E83.42 Acute kidney injury N17.9 Hypoglycemia E16.2 Low back pain M54.50
--- NOTE | 2023-11-21 14:58 | Discharge Summary ---
Date of Service November 21, 2023 Admission HPI Per Admitting Provider Pretty Nielsen is a 68 year-old female with a past medical history of gastric bypass, alcohol use disorder, GERD, depression who presents to the ED after recurrent falls and worsening back pain. She was seen in the ED on 11/14 for similar symptoms. She notes that her chronic lower back pain has been worsening and this makes ambulation difficult, subsequently she has gotten weaker. Notes that she is unable to get up off the ground after a fall and has to call EMS, has not been down for more than approximately 15 minutes. She notes that she is not doing a great job with eating and describes herself as "anorexic" because she does not enjoy cooking for herself and eats very little. She states she will drink some water or orange crush soda, unsure of her daily fluid intake. Denies any recent URI symptoms, nausea/vomiting, urinary symptoms, chest pain or shortness of breath. Denies changes in bowel habits and no blood in stool. Patient notes that she had an injection with Dr. Chu on October 14, which provided some relief for about two weeks but the pain is just as bad now. Notes that she takes Tylenol 2-3 times per day which helps "some" but does not fully relieve symptoms. Notes that she has been prescribed Tramadol in the past for this which has been helpful. She states she has told before she cannot take Tramadol and Naltrexone together so she was no longer prescribed them, however she states she never took these medications together. Patient endorses that her last drink was three days ago, denies any history of alcohol withdrawal seizures. States she is working on reducing her alcohol consumption and tries to limit herself to three drinks on days when she is drinking alcohol. She notes that her daughter lives in [facility] [place], states she sees her daughter and her grandchildren a few times per month but typically stays at home in her own apartment. ED Course: -CT lumbar spine -CBC, CMP, CK, trop Principal Diagnosis E. coli UTI, hypomagnesemia, acute kidney injury, elevated CK level due to falls Discharge Exam General-alert and oriented x3, no fever, no chills HEENT-head atraumatic and normocephalic, pupils equal and reactive to light, extraocular muscles intact Neck-no lymphadenopathy or thyromegaly, trachea midline Chest-clear to auscultation. No rales, wheezing or rhonchi Cardiac-regular rate and rhythm, normal S1 and S2 Abdomen-normal bowel sounds, no hepatosplenomegaly Extremities-no cyanosis, clubbing, or edema Neuro-cranial nerves II through XII intact, motor and sensory function within normal limits, strength symmetrical, no focal deficits Psych-normal affect, normal mood Discharge Data Allergies Allergy/AdvReac Type Severity Reaction Status Date / Time No Known Allergies Allergy Verified 11/16/23 23:27 Consultations 11/16/23 23:45 ED Decision to Admit Stat Ordered Studies 11/16/23 22:21 CT lumbar spine wo con Stat Hospital Course (1) Acute UTI: E. coli isolated. Pansensitive. Treated with 5 days of Rocephin while hospitalized. She does not need any further antibiotic therapy (2) Hypomagnesemia: Magnesium level is now normal. She received both parenteral and oral magnesium yesterday, November 18. Will follow. Serial labs. (3) Acute kidney injury: Resolved with IV fluids. Creatinine 1.5 on admission now normalized at 0.7. She no longer requires IV fluids. (4) Hypoglycemia: Present on admission. Now resolved (5) Low back pain: No significant symptoms at this time. Symptomatic care Plan Insurance authorization for [facility] placement remains pending. She has decided to go home today, November 20, with home health services Total Time Total Time Spent Total Time Spent (In Minutes): 45 minutes Discharge Plan Discharge Items Patient Disposition: Home - Home Health Services Reason For Visit: RECURRENT FALLS Discharge Diagnosis: E. coli UTI, hypomagnesemia, elevated CK due to weakness and falls, acute kidney injury Condition on Discharge: Good Activity: Resume your previous activity Non-emergency contact: Primary Care Provider Call non-emergency contact if: your symptoms worsen Follow-up/Referrals: Emily Diehl PA-C [Primary Care Provider] - Diet: Regular Addtl Attending Provider Instructions: All medications remain the same. Magnesium oxide prescription has been sent to [facility]. No further antibiotic treatment is necessary for the UTI. Home health services have been requested Pending Studies at Discharge: No Stand-Alone Forms: [employer], Smoking Cessation Medications and DC Order Prescriptions: New magnesium oxide 400 mg (241.3 mg magnesium) Tablet 400 mg PO BID Qty: 60 0RF Continued lisinopril 10 mg Tablet 10 mg PO HS Hold Instructions: Resume on 08/01/23. Continue to hold until your appointment with your primary care provider. Rx Instructions: pt states only take if blood pressure elevated alendronate 70 mg tablet 70 mg PO Q7D Rx Instructions: Mondays ondansetron 4 mg tablet,disintegrating 4 mg PO Q6H PRN (Reason: nausea and vomiting) Qty: 14 0RF quetiapine 100 mg tablet 100 mg PO HS Rx Instructions: pt states "takes 100mg po qhs" original directions: take 50mg po qhs hydroxyzine pamoate 100 mg Capsule 100 mg PO HS Rx Instructions: Patient states she takes 100mg along with Hydroxyzine 50mg every night at bedtime sertraline [Zoloft] 100 mg Tablet 100 mg PO HS valacyclovir 1 gram Tablet 1,000 mg PO DIRECTED PRN (Reason: Cold Sores) cholecalciferol (vitamin D3) 125 mcg (5,000 unit) Tablet 125 mcg PO QAM Qty: 90 0RF folic acid 1 mg Tablet 1 mg PO QAM Qty: 90 0RF thiamine HCl (vitamin B1) 100 mg Tablet 100 mg PO QAM Qty: 90 0RF acetaminophen [Tylenol Extra Strength] 500 mg Tablet 1,000 mg PO BID PRN (Reason: Pain (Scale Score 1-3)) Discharge Orders: Discharge Order (Routine); Ordered 11/21/23 Ordered By: Rafael Rivera Admission Data Admit Date/Time: 11/17/23 01:08 Attending Provider: Rafael Rivera Admit Provider: Mey Beckford Primary Care Provider: Emily Diehl Other Providers: Emmanuel Rehman Rick D Coding Level of Care Code 24299 INP/OBS DISCH >30 MIN Diagnoses Acute UTI N39.0 Hypomagnesemia E83.42 Acute kidney injury N17.9 Hypoglycemia E16.2 Low back pain M54.50
[2023-11-21 15:09] VITALS: BP 124/81; PULSE 73; RESP 16; TEMP 97.5; O2SAT 97
== END 2023-11-21 17:06 | disposition home health service (06) | DRG 690 ==
LOC: ED 22:11 → 2N 11-17 01:08 → SUATTDRO 11-17 01:08 → 2N 11-17 02:43 → 3N 11-20 09:44

== ENCOUNTER 2024-01-23 14:14 | Inpatient (IN) ==
[2024-01-23 16:09] LABS: Albumin Level 4.4 gm/dl (3.4-5.0); Anion Gap 12 (3-11); Bilirubin,Total 1.3 mg/dl (0.2-1.0); Calcium 9.9 mg/dl (8.6-10.3); Carbon Dioxide 31 mmol/L (21-32); Chloride 90 mmol/L (98-107); Potassium 3.5 mmol/L (3.5-5.1); Sodium 133 mmol/L (136-145)
[2024-01-23 16:13] LABS: Alanine Aminotransferase 14 U/L (7-52); Albumin Globulin Ratio 1.6 (0.9-2); Alkaline Phosphatase 98 U/L (34-104); Aspartate Aminotransferase 27 U/L (13-39); BUN Creatinine Ratio 22.1 (10-20); Blood Urea Nitrogen 23 mg/dl (6-23); Est GFR (African American) 63.9 ml/min; Est GFR (Non-African American) 55.2 ml/min; Globulin 2.7 gm/dl (2.5-4.0); Glucose 154 mg/dl (70-99(Fasting)); Total Protein 7.1 gm/dl (6.0-8.3)
--- NOTE | 2024-01-23 16:13 | Electrocardiogram Report ---
Test Reason : Blood Pressure : / mmHG Vent. Rate : 113 BPM Atrial Rate : 000 BPM P-R Int : 000 ms QRS Dur : 072 ms QT Int : 470 ms P-R-T Axes : 000 -28 020 degrees QTc Int : 644 ms Accelerated Junctional rhythm Minimal voltage criteria for LVH, may be normal variant ( R in aVL ) Possible Anterolateral infarct , age undetermined Abnormal ECG When compared with ECG of 16-NOV-2023 22:45, Junctional rhythm has replaced Sinus rhythm Borderline criteria for Anterolateral infarct are now Present Nonspecific T wave abnormality now evident in Lateral leads Confirmed by Fei Fiztgerald ([id number]) on 01/23/2024 4:12:40 PM Referred By: Confirmed By:Fei Fitzgerald
[2024-01-23 16:21] LABS: Basophils # (auto) 0.02 K/uL (0.00-0.20); Basophils % (auto) 0.5 %; Eosinophils # (auto) 0.01 K/uL (0.00-0.50); Eosinophils % (auto) 0.3 %; Hematocrit (blood only) 32.6 % (37.0-47.0); Immature Granulocytes # (auto) 0.02 K/uL (0.01-0.20); Immature Granulocytes % (auto) 0.5 %; Lymphocytes % (auto) 26.5 %; Mean Corpuscular Hgb Conc 33.7 g/dL (32.0-36.0); Mean Corpuscular Volume 91.8 fL (80.0-100.0); Mean Platelet Volume 10.3 fL (9.4-12.4); Monocytes # (auto) 0.39 K/uL (0.11-0.59); Monocytes % (auto) 10.3 %; Neutrophils # (auto) 2.33 K/uL (1.40-6.50); Neutrophils % (auto) 61.9 %; Platelet Count 159 K/uL (130-400); RDW Coefficient of Variation 16.6 % (11.5-14.5); RDW Standard Deviation 55.5 fL (36.4-46.3); Red Blood Count 3.55 M/uL (4.20-5.40); White Blood Count 3.77 K/ul (4.8-10.8)
--- NOTE | 2024-01-23 16:41 | Emergency Department Note ---
Impression & Plan Slurred speech, Weakness, Dizziness, Leukopenia, Acute hyponatremia ED Provider Note NAME: SANDHYA HALL AGE: 68 SEX: F : 1955 ARRIVES VIA: Walk-In INFORMANT: Patient ED PROVIDER(S): George Pleitez DO CHIEF COMPLAINT: Dizzy, slurred speech, cannot walk HPI: Patient is a 68-year-old female who is an alcoholic who presents to the ER for dizziness, slurred speech and inability to walk. She drinks a handle of rum every 2 days. She notes that she has not drank since around 5 AM this morning when she only had 2 shots. She denies any headache but feels very dizzy lightheadedness has been present for the past 3 days. She has been unable to get up and walk as she has been so unsteady. She feels very weak and rundown. She denies any chest pain or shortness of breath. No belly pain. No nausea, vomiting, or diarrhea. No dysuria, urgency or frequency. No other exacerbating or remitting factors. She also admits that she has been hallucinating and seeing shadows. That has been present for the past 3 weeks but has gotten worse recently. ADDITIONAL HISTORY OBTAINED: Per HPI Chronic Medical/Social Conditions Affecting Care: Per HPI PAST MEDICAL HISTORY:See Below PAST SURGICAL HISTORY:See Below FAMILY HISTORY:See Below SOCIAL HISTORY:See Below HOME MEDICATIONS:See Below ALLERGIES:See Below VITALS:See Below PHYSICAL EXAMINATION: GENERAL: Sitting up in bed, alert, chronically ill-appearing, disheveled EYE EXAM: normal conjunctiva. PERRL and EOM's intact. OROPHARYNX: no exudate, no erythema, lips, buccal mucosa, and tongue normal and mucous membranes are moist NECK: supple, no nuchal rigidity, no adenopathy, non-tender LUNGS: Clear to auscultation. Normal chest wall mechanics HEART: no murmurs, S1 normal and S2 normal ABDOMEN: abdomen soft, non-tender, normo-active bowel sounds, no masses, no rebound or guarding. UPPER EXTREMITIES: upper extremities are grossly normal. LOWER EXTREMITIES: No pitting edema. NEURO EXAM: Normal sensorium, cranial nerves II-XII intact, slurred speech, no weakness of arms, no weakness of legs. No drift. Finger to nose intact. Gross sensation intact. MEDICAL DECISION MAKING: Patient is a 68-year-old female who presents ER for the above-stated complaint. IV was established blood was obtained. Labs show mild leukopenia at 3.7. Mild anemia 11. BMP with a hyponatremia 133. LFTs bilirubin was fairly unremarkable. Troponin was negative. Alcohol negative. She did have slurring of her words but was otherwise neurologically intact. CT of the head was initially obtained Noncon was unremarkable. There is no exam findings to be consistent with an LVO. Did order angios which are pending upon admission due to delay. Discussed case with the hospitalist for further evaluation management treatment. Consults/Care Managements Discussions: Per [facility] Triage Nursing notes reviewed. Limited review of prior medical records performed Vital Signs: reviewed and remarkable for tachy Differential diagnosis: Differential Diagnosis includes but is not limited to ischemic Stroke, hemorrhagic stroke, bells palsy, mass, neoplasm, migraine headache, seizure, subarachnoid hemorrhage, TIA, and transient global amnesia. ER treatment provided: See below Diagnostics interpreted by me include EKG and cardiac monitoring as listed below: -Cardiac Monitoring: An order was placed for continuous cardiac monitoring. The monitor shows a rate of 110 with sinus rhythm. -ECG: Sinus rhythm rate of 113 Left axis Poor baseline QTc 644 -Laboratory studies:Interpreted by me as stated above in MDM and shown below. Imaging studies: Xrays: As interpreted by me: Portable AP upright 1 view of the chest shows no focal infiltrate CTs show: CT of the head was negative Procedures:none Critical Care: None Past Med/Surg History Problem List (Updated 01/23/24 @ 22:00 by George Pleitez DO) Acute hyponatremia (Acute) Leukopenia (Acute) Dizziness (Acute) Weakness (Acute) Slurred speech (Acute) Alcohol withdrawal Gait instability Altered mental status Acute UTI (Acute) Hypomagnesemia (Acute) Low back pain (Acute) Weakness (Acute) Acute kidney injury (Acute) Fall (Acute) Anemia (Acute) Acute chest wall pain (Acute) Starvation ketoacidosis Urinary tract infection due to Klebsiella species Nausea and vomiting History of gastric bypass (Acute) Anemia (Acute) MURALI (acute kidney injury) (Acute) Vomiting and diarrhea (Acute) Syncope (Acute) Hypotension (Acute) Esophageal dysmotility Poor nutrition (Acute) Encounter for pre-operative examination Alcohol intoxication (Acute) Syncope (Acute) Cholecystitis (Acute 01/09/14) Abdominal pain (Acute) Depression History of alcohol use Hyponatremia Medical History (Updated 01/23/24 @ 22:00 by George Pleitez DO) GERD (gastroesophageal reflux disease) Alcohol use disorder Osteoarthritis Acid reflux Anemia History of depression Insomnia Hypertension Surgical History (Updated 11/26/23 @ 00:08 by Ivelisse Ferris) H/O gastric bypass History of section x 1 History of open reduction and internal fixation (ORIF) procedure right wrist--hardware in place History of total left hip replacement History of colonoscopy History of esophagogastroduodenoscopy (EGD) History of wisdom tooth extraction History of cholecystectomy H/O: hysterectomy Family History Other No family history of adverse response to anesthesia Social History Smoking Status: Never smoker Second Hand Exposure: No; Do You Dip or Chew Tobacco: No; Tobacco Cessation Education Requested by Patient: No Hx Alcohol Use: Yes Alcohol type: hard liquor Hx Substance Use: No Preferred Language: Bur[place]ian Communication Ability: Effective Clinical Psychologist Licensed Required: No Beliefs That Will Affect Care: None Current Living Situation: Personal Care Facility Current Living Situation Comment: Lives at [facility] Other Information That Helps Us Care for You: No Feels Safe at Home: Yes Safety Concerns: Feels Safe At This Time Assistive Devices: Cane, Glasses and Walker Allergies Allergies Allergy/AdvReac Type Severity Reaction Status Date / Time No Known Allergies Allergy Verified 11/16/23 23:27 Home Meds Home Medications Medication Instructions Recorded Confirmed quetiapine 100 mg tablet 50 mg PO HS 10/22/22 01/23/24 hydroxyzine pamoate 100 mg capsule 100 mg PO UD 01/07/23 01/23/24 sertraline 100 mg tablet (Zoloft) 100 mg PO UD 01/07/23 01/23/24 lisinopril 10 mg tablet 20 mg PO HS 01/31/23 01/23/24 alendronate 70 mg tablet 70 mg PO Q7D 04/26/23 01/23/24 valacyclovir 1 gram tablet 1,000 mg PO UD PRN Cold Sores 07/21/23 01/23/24 acetaminophen 500 mg tablet 1,000 mg PO BID PRN Pain (Scale 11/16/23 01/23/24 (Tylenol Extra Strength) Score 1-3) folic acid 1 mg tablet 1 mg PO UD 01/23/24 01/23/24 ondansetron 4 mg disintegrating 4 mg PO UD PRN nausea and vomiting 01/23/24 01/23/24 tablet pantoprazole 40 mg tablet,delayed 40 mg PO BID 01/23/24 01/23/24 release Previous Rx's Medication Instructions Recorded cholecalciferol (vitamin D3) 125 125 mcg PO QAM #90 tabs 10/26/23 mcg (5,000 unit) tablet thiamine HCl (vitamin B1) 100 mg 100 mg PO QAM #90 tabs 10/26/23 tablet magnesium oxide 400 mg (241.3 mg 400 mg PO BID #60 tabs 11/21/23 magnesium) tablet tramadol 50 mg tablet 50 mg PO Q6H PRN pain #20 tabs 11/21/23 Results & Data (ED) Vital Signs Vital Signs - 24 hr 01/23/24 15:18 01/23/24 15:25 01/23/24 17:30 Pulse Rate [Apical] 114 H 104 H Respiratory Rate 18 20 Respiratory Effort / Characteristics Non-Labored Spontaneous Non-Labored Spontaneous Respiratory Depth Normal Normal Respiratory Pattern Regular Regular Blood Pressure [Left Arm] 106/68 103/75 Blood Pressure Mean [Left Arm] 80 84 Pulse Oximetry 98 98 96 Oxygen Delivery Method Room Air Room Air Room Air Laboratory Data 01/23/24 15:25 01/23/24 15:20 Lab Results 01/23/24 01/23/24 01/23/24 Range/Units 15:20 15:20 15:20 WBC (4.8-10.8) K/ul RBC (4.20-5.40) M/uL Hgb (12.0-16.0) g/dl Hct (37.0-47.0) % MCV (80.0-100.0) fL MCH (25.0-34.0) pg MCHC (32.0-36.0) g/dL RDW Std Deviation (36.4-46.3) fL RDW Coeff of Cate (11.5-14.5) % Plt Count (130-400) K/uL MPV (9.4-12.4) fL Immature Gran % (Auto) % Neut % (Auto) % Lymph % (Auto) % [place] % (Auto) % Eos % (Auto) % Baso % (Auto) % Neut # (Auto) (1.40-6.50) K/uL Lymph # (Auto) (1.20-3.40) K/uL [place] # (Auto) (0.11-0.59) K/uL Eos # (Auto) (0.00-0.50) K/uL Baso # (Auto) (0.00-0.20) K/uL Immature Gran # (Auto) (0.01-0.20) K/uL Sodium 133 L (136-145) mmol/L Potassium 3.5 (3.5-5.1) mmol/L Chloride 90 L (98-107) mmol/L Carbon Dioxide 31 (21-32) mmol/L Anion Gap 12 H (3-11) BUN 23 (6-23) mg/dl Creatinine 1.04 (0.6-1.2) mg/dl Est Cr Clr Drug Dosing Not Reportable Est GFR ( Amer) 63.9 ml/min Est GFR (Non-Af Amer) 55.2 ml/min BUN/Creatinine Ratio 22.1 H (10-20) Glucose 154 H (70-99(Fasting)) mg/dl Calcium 9.9 (8.6-10.3) mg/dl Magnesium 1.9 Cancelled (1.7-2.4) mg/dl Total Bilirubin 1.3 H (0.2-1.0) mg/dl AST 27 (13-39) U/L ALT 14 (7-52) U/L Alkaline Phosphatase 98 (34-104) U/L Troponin I High Sens 7.7 Cancelled (0-14) pg/ml Total Protein 7.1 (6.0-8.3) gm/dl Albumin 4.4 (3.4-5.0) gm/dl Globulin 2.7 (2.5-4.0) gm/dl Albumin/Globulin Ratio 1.6 (0.9-2) Ethyl Alcohol mg/dL < 10.0 (<10.0) mg/dl 01/23/24 Range/Units 15:25 WBC 3.77 L (4.8-10.8) K/ul RBC 3.55 L (4.20-5.40) M/uL Hgb 11.0 L (12.0-16.0) g/dl Hct 32.6 L (37.0-47.0) % MCV 91.8 (80.0-100.0) fL MCH 31.0 (25.0-34.0) pg MCHC 33.7 (32.0-36.0) g/dL RDW Std Deviation 55.5 H (36.4-46.3) fL RDW Coeff of Cate 16.6 H (11.5-14.5) % Plt Count 159 (130-400) K/uL MPV 10.3 (9.4-12.4) fL Immature Gran % (Auto) 0.5 % Neut % (Auto) 61.9 % Lymph % (Auto) 26.5 % [place] % (Auto) 10.3 % Eos % (Auto) 0.3 % Baso % (Auto) 0.5 % Neut # (Auto) 2.33 (1.40-6.50) K/uL Lymph # (Auto) 1.00 L (1.20-3.40) K/uL [place] # (Auto) 0.39 (0.11-0.59) K/uL Eos # (Auto) 0.01 (0.00-0.50) K/uL Baso # (Auto) 0.02 (0.00-0.20) K/uL Immature Gran # (Auto) 0.02 (0.01-0.20) K/uL Sodium (136-145) mmol/L Potassium (3.5-5.1) mmol/L Chloride (98-107) mmol/L Carbon Dioxide (21-32) mmol/L Anion Gap (3-11) BUN (6-23) mg/dl Creatinine (0.6-1.2) mg/dl Est Cr Clr Drug Dosing Est GFR ( Amer) ml/min Est GFR (Non-Af Amer) ml/min BUN/Creatinine Ratio (10-20) Glucose (70-99(Fasting)) mg/dl Calcium (8.6-10.3) mg/dl Magnesium (1.7-2.4) mg/dl Total Bilirubin (0.2-1.0) mg/dl AST (13-39) U/L ALT (7-52) U/L Alkaline Phosphatase (34-104) U/L Troponin I High Sens (0-14) pg/ml Total Protein (6.0-8.3) gm/dl Albumin (3.4-5.0) gm/dl Globulin (2.5-4.0) gm/dl Albumin/Globulin Ratio (0.9-2) Ethyl Alcohol mg/dL (<10.0) mg/dl Administered Medications Hydroxyzine HCl (Hydroxyzine Hcl 25 Mg Tab) 150 mg PO HS BARBARA Stop: 02/22/24 20:59 Last Admin: 01/23/24 21:09 Dose: 150 mg Documented By: FRANCESCA Lactated Ringer's (Lr) 1,000 mls @ 80 mls/hr IV .[id number] BARBARA Stop: 01/24/24 06:44 Last Admin: 01/23/24 18:36 Dose: 80 mls/hr Documented By: VIRI Magnesium Oxide (Magnesium Oxide 400 Mg Tab) 400 mg PO BID BARBARA Stop: 02/22/24 20:59 Last Admin: 01/23/24 21:07 Dose: 400 mg Documented By: FRANCESCA Pantoprazole Sodium (Pantoprazole 40 Mg Tab) 40 mg PO BID BARBARA Stop: 02/22/24 20:59 Last Admin: 01/23/24 21:07 Dose: 40 mg Documented By: FRANCESCA Quetiapine Fumarate (Quetiapine Fumarate 25 Mg Tablet) 50 mg PO [facility] Stop: 02/22/24 20:59 Last Admin: 01/23/24 21:08 Dose: 50 mg Documented By: FRANCESCA Sertraline HCl (Sertraline Hcl 100 Mg Tablet) 100 mg PO [facility] Stop: 02/22/24 20:59 Last Admin: 01/23/24 21:08 Dose: 100 mg Documented By: FRANCESCA Discontinued Medications Thiamine HCl 100 mg/ Syringe 10 mls @ 2 mls/min IV NOW STA Stop: 01/23/24 16:40 Last Admin: 01/23/24 17:24 Dose: 2 mls/min Documented By: JODEE Folic Acid 1 mg/ Syringe 10 mls @ 5 mls/min IV NOW STA Stop: 01/23/24 16:37 Last Admin: 01/23/24 17:25 Dose: 5 mls/min Documented By: JODEE Parenteral Electrolytes (Plasma-Lyte A Ph 7.4) 1,000 mls @ 999 mls/hr IV .Q1H1M ONE Stop: 01/23/24 17:39 Last Infusion: 01/23/24 18:25 Dose: Infused Documented By: Admin: 01/23/24 17:24 Dose: 999 mls/hr Documented By: JODEE Ioversol (Optiray 320 125ml) 119 ml IV ONCE ONE Stop: 01/23/24 19:14 Last Admin: 01/23/24 19:13 Dose: 119 ml Documented By: NICKY Multivitamins (Multivitamin Tab) 1 tab PO NOW STA Stop: 01/23/24 16:37 Last Admin: 01/23/24 17:24 Dose: 1 tab Documented By: JODEE Imaging Data Radiologist's Impression: Head CT 01/23/24 16:39 CT head/brain wo con CLINICAL HISTORY: dizzy Technique: Contiguous axial CT images of the head were acquired from the base of the skull to the vertex without intravenous contrast administration. Images were viewed in brain, subdural and bone windows. Automated dose lowering techniques and/or adjustment according to patient size were utilized for this exam. Comparison: Comparison is made to CT head 11/15/2023 Findings: Areas of decreased attenuation are present in the periventricular and subcortical white matter bilaterally consistent with small vessel ischemic disease. Generalized cerebral atrophy with commensurate enlargement of the ventricles, sulci, and cisterns is also present. There is no acute intracranial hemorrhage or evidence of acute territorial infarction. No shift of the midline structures, mass effect, or extra-axial abnormalities are shown. Atherosclerotic calcifications are present in the intracranial segments of the internal carotid arteries. Imaged portions of the paranasal sinuses and mastoid air cells are clear. The orbits appear normal. There are no acute fractures of the calvaria or scalp swelling. Impression: No acute intracranial hemorrhage, no evidence of acute territorial infarction or other acute intracranial disease process. ACT 112: Negative or not required by law. Electronically signed by: Donaldo Pryor M.D. 01/23/2024 5:24 PM Chest X-Ray 01/23/24 17:23 XR chest 1V portable CLINICAL HISTORY: cant walk TECHNIQUE: Single frontal radiograph of the chest was obtained. Comparison: Comparison is made to chest radiograph 11/16/2023 FINDINGS: No lines and tubes are seen. Calcified aortic knob is seen. The lungs are clear. No evidence of pleural effusion or pneumothorax. IMPRESSION: No acute chest disease. ACT 112: Negative or not required by law. Electronically signed by: Donaldo Pryor M.D. 01/23/2024 6:38 PM Discharge Plan Visit Data Chief Complaint: Altered Mental Status Stated Complaint: AMS ED Provider: George Pleitez Discharge Problem: Slurred speech, Weakness, Dizziness, Leukopenia, Acute hyponatremia Patient Disposition: Admitted As Inpatient Discharge Instructions Interventions: ED Discharge Assessment Last Done: 01/23/24 20:52 Discharge Problem: Leukopenia Qualifiers: Leukopenia type: unspecified Qualified Code(s): D72.819 - Decreased white blood cell count, unspecified
[2024-01-23] MEDS: THIAMINE HCL 100 MG in SYRINGE 9 ML IV STA (17:24)
[2024-01-23] MEDS: MULTIVITAMIN TAB PO STA (17:24)
[2024-01-23] MEDS: PLASMA-LYTE A 1,000 ML IV ONE (17:24)
[2024-01-23] MEDS: FOLIC ACID 1 MG in SYRINGE 9.8 ML IV STA (17:25)
--- NOTE | 2024-01-23 17:26 | CT Scan Report ---
CT head/brain wo con CLINICAL HISTORY: dizzy Technique: Contiguous axial CT images of the head were acquired from the base of the skull to the renny sandy without intravenous contrast administration. Images were viewed in brain, subdural and [facility] . Automated dose lowering techniques and/or adjustment according to patient size were utilized for this exam. Comparison: Comparison is made to CT head 11/15/2023 Findings: Areas of decreased attenuation are present in the periventricular and subcortical white matter bilate rally consistent with small vessel ischemic disease. Generalized cerebral atrophy with commensurate e nlargement of the ventricles, sulci, and cisterns is also present. There is no acute intracranial hem orrhage or evidence of acute territorial infarction. No shift of the midline structures, mass effect, or extra-axial abnormalities are shown. Atherosclerotic calcifications are present in the intracran ial segments of the internal carotid arteries. Imaged portions of the paranasal sinuses and mastoid air cells are clear. The orbits appear normal. There are no acute fractures of the calvaria or scalp swelling. Impression: No acute intracranial hemorrhage, no evidence of acute territorial infarction or other acute intracra nial disease process. ACT 112: Negative or not required by law. Electronically signed by: Donaldo Pryor M.D. 01/23/2024 5:24 PM
--- NOTE | 2024-01-23 17:40 | History & Physical Report ---
Date of Service January 23, 2024 Assessment & Plan (1) Alcohol withdrawal: Plan: Patient presented on 01/22 for altered mental status and visual hallucinations Hx of alcohol withdrawal with visual hallucinations in the past Patient reports she usually drinks 34 drinks of rum and coke daily Last drink the morning of 01/22 at 6 AM Patient also endorses slurred speech, and patient does endorse an acute warp changer the past week Well no facial droop or unilateral deficits, CVA remains in the differential at this time Head CT revealed no acute findings Head/neck CTA ordered, pending Brain MRI ordered, pending AWSS protocol for active withdrawal with Ativan as needed Daily thiamine and folate supplementation Seizure precautions Fall precautions When asked why patient started to get up, she reports that it is secondary to a "habit"; no new life stressors Hx of alcoholic rehab on multiple occasions; patient would like resources available upon discharge; case mgmt consulted A.m. CBC, BMP, mag, Phos, fasting lipid panel, A1c (2) Altered mental status: Plan: See #1 (3) Hyponatremia: Plan: Mild; NA 133 on arrival Suspect secondary to alcohol use; ?beer potomania Recheck a.m. BMP (4) Gait instability: Plan: PT/OT evaluations appreciated Fall precautions (5) Depression: Plan: Continue Zoloft (6) History of alcohol use: Plan Disposition: Obs -admit to PCU telemetry Full code Regular diet VTE PPx: Heparin 5000u SQ q12h History of Present Illness Chief Complaint: Altered mental status Primary Care Provider: Emily Fazal Olsen is a 68-year-old female with PMH of alcohol use, depression, syncope, esophageal dysmotility, gastric bypass, and starvation ketoacidosis. She presented on 01/22 for dizziness, slurred speech, and gait instability. Hx of prior [place] admissions for alcohol withdrawal and similar presentation. Patient reports that her confusion, nausea, and visual hallucinations started the evening of 01/21. She reports she was seeing "cats, kittens, small children, parent/people, and things on the wall". She has had prior visual hallucinations in the past, but never this bad. She has also had slurred speech ongoing for the past 3 days, and reports she has been unsteady on her feet. Patient reports drinking 3-4 drinks of rum and coke per day; last drink was this morning at 6 AM. Patient took all her regular medications last night; none this morning; no recent change in medications. She reports that she has been drinking due to "habit" denies any new life stressors. She does endorse history of mild alcohol withdrawal, but denies history of alcohol withdrawal seizures. Patient denies history of strokes. No supplemental oxygen at home. Patient denies tobacco use, or recreational drug use. Patient is tachycardic at 114 bpm at time of admission; vitals otherwise stable. ED course: Thiamine 100 mg IV Folic acid 1 g IV Multivitamins Plasma-Lyte 1000 mL IV ROS: Patient endorses visual hallucinations, slurred speech (ongoing), chronic cough, nausea, intermittent diarrhea, Patient denies fever, chills, night-sweats, dizziness, lightheadedness, PARNELL, changes in vision, facial droop, unilateral deficits, chest pain, SOB, pleuritic CP, abdominal pain, vomiting, burning with urination, dysuria, blood in the urine/stool, or numbness/tingling in arms or legs. Allergies Allergy/AdvReac Type Severity Reaction Status Date / Time No Known Allergies Allergy Verified 11/16/23 23:27 Home Medications Medication Instructions Recorded Confirmed Type quetiapine 100 mg tablet 50 mg PO HS 10/22/22 01/23/24 History hydroxyzine pamoate 100 mg capsule 100 mg PO UD 01/07/23 01/23/24 History sertraline 100 mg tablet (Zoloft) 100 mg PO UD 01/07/23 01/23/24 History lisinopril 10 mg tablet 20 mg PO HS 01/31/23 01/23/24 History alendronate 70 mg tablet 70 mg PO Q7D 04/26/23 01/23/24 History valacyclovir 1 gram tablet 1,000 mg PO UD PRN Cold Sores 07/21/23 01/23/24 History cholecalciferol (vitamin D3) 125 125 mcg PO QAM #90 tabs 10/26/23 01/23/24 Rx mcg (5,000 unit) tablet thiamine HCl (vitamin B1) 100 mg 100 mg PO QAM #90 tabs 10/26/23 01/23/24 Rx tablet acetaminophen 500 mg tablet 1,000 mg PO BID PRN Pain (Scale 11/16/23 01/23/24 History (Tylenol Extra Strength) Score 1-3) magnesium oxide 400 mg (241.3 mg 400 mg PO BID #60 tabs 11/21/23 01/23/24 Rx magnesium) tablet tramadol 50 mg tablet 50 mg PO Q6H PRN pain #20 tabs 11/21/23 01/23/24 Rx folic acid 1 mg tablet 1 mg PO UD 01/23/24 01/23/24 History ondansetron 4 mg disintegrating 4 mg PO UD PRN nausea and vomiting 01/23/24 01/23/24 History tablet pantoprazole 40 mg tablet,delayed 40 mg PO BID 01/23/24 01/23/24 History release Past Med/Surg History Problem List (Updated 01/23/24 @ 21:22 by Avelino Wheatley PA-C) Alcohol withdrawal Gait instability Altered mental status Acute UTI (Acute) Hypomagnesemia (Acute) Low back pain (Acute) Weakness (Acute) Acute kidney injury (Acute) Fall (Acute) Anemia (Acute) Acute chest wall pain (Acute) Starvation ketoacidosis Urinary tract infection due to Klebsiella species Nausea and vomiting History of gastric bypass (Acute) Anemia (Acute) MURALI (acute kidney injury) (Acute) Vomiting and diarrhea (Acute) Syncope (Acute) Hypotension (Acute) Esophageal dysmotility Poor nutrition (Acute) Encounter for pre-operative examination Alcohol intoxication (Acute) Syncope (Acute) Cholecystitis (Acute 01/09/14) Abdominal pain (Acute) Depression History of alcohol use Hyponatremia Medical History (Updated 01/23/24 @ 21:22 by Avelino Wheatley PA-C) GERD (gastroesophageal reflux disease) Alcohol use disorder Osteoarthritis Acid reflux Anemia History of depression Insomnia Hypertension Surgical History (Updated 11/26/23 @ 00:08 by Ivelisse Ferris) H/O gastric bypass History of section x 1 History of open reduction and internal fixation (ORIF) procedure right wrist--hardware in place History of total left hip replacement History of colonoscopy History of esophagogastroduodenoscopy (EGD) History of wisdom tooth extraction History of cholecystectomy H/O: hysterectomy Family History Other No family history of adverse response to anesthesia Social History Smoking Status: Never smoker Second Hand Exposure: No; Do You Dip or Chew Tobacco: No; Tobacco Cessation Education Requested by Patient: No Hx Alcohol Use: Yes Alcohol type: hard liquor Hx Substance Use: No Preferred Language: Cape Verdean Communication Ability: Effective Ammunition Storekeeper Required: No Beliefs That Will Affect Care: None Current Living Situation: Personal Care Facility Current Living Situation Comment: Lives at [facility] independent [facility] Other Information That Helps Us Care for You: No Feels Safe at Home: Yes Safety Concerns: Feels Safe At This Time Assistive Devices: Cane, Glasses and Walker Review of Systems Review of Systems: See HPI above Physical Exam Physical Exam: General: no acute distress; dazed; pleasant affect; non-toxic appearing; well- nourished; cooperative; SpO2 98% on RA HEENT: normocephalic, atraumatic; no scleral icterus; PERRLA; moist mucus membrane; vision and hearing intact; patient demonstrates ability to smile, frown, and raise eyebrows without unilateral deficits Neck: supple; no lymphadenopathy; trachea midline Skin: warm, dry without signs of tenting; no cyanosis; no rashes, bruising, lesions, or erythema noted CV: chest wall NTP; RRR; S1/S2 normal; no murmurs/rubs/gallops; pulses intact and symmetric at radial, DP, and PT Lungs: no acute respiratory distress; symmetrical chest wall expansion; clear breath sounds across all lung dotson w/o adventitious sounds; no wheezing ABD: Soft, NTP; BS present; no rebound/guarding; no distention MSK: no tics or fasciculations; no edema noted in the LEs b/l, nonerythematous; 5/5 business services 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 strength bilaterally; patient demonstrates ability to wiggle toes bilaterally Neuro: She is alert and oriented to name//location, but some confusion regarding the month (believes it is February); normal mood and affect; fluent speech; no focal deficits; sensation grossly intact in the face/UEs/LEs b/l; negative pronator drift Results & Data Results & Data Vital Signs (Past 12 Hours) Vital Signs Pulse Resp BP Pulse Ox O2 Del Method 01/23/24 15:25 98 Room Air 01/23/24 15:18 114 H 18 106/68 98 Room Air Laboratory Results Abnormal lab results 01/23/24 01/23/24 Range/Units 15:20 15:25 WBC 3.77 L (4.8-10.8) K/ul RBC 3.55 L (4.20-5.40) M/uL Hgb 11.0 L (12.0-16.0) g/dl Hct 32.6 L (37.0-47.0) % RDW Std Deviation 55.5 H (36.4-46.3) fL RDW Coeff of Cate 16.6 H (11.5-14.5) % Lymph # (Auto) 1.00 L (1.20-3.40) K/uL Sodium 133 L (136-145) mmol/L Chloride 90 L (98-107) mmol/L Anion Gap 12 H (3-11) BUN/Creatinine Ratio 22.1 H (10-20) Glucose 154 H (70-99(Fasting)) mg/dl Total Bilirubin 1.3 H (0.2-1.0) mg/dl Diagnostic Findings Head CT 01/23/24 16:39 CT head/brain wo con CLINICAL HISTORY: dizzy Technique: Contiguous axial CT images of the head were acquired from the base of the skull to the vertex without intravenous contrast administration. Images were viewed in brain, subdural and bone windows. Automated dose lowering techniques and/or adjustment according to patient size were utilized for this exam. Comparison: Comparison is made to CT head 11/15/2023 Findings: Areas of decreased attenuation are present in the periventricular and subcortical white matter bilaterally consistent with small vessel ischemic disease. Generalized cerebral atrophy with commensurate enlargement of the ventricles, sulci, and cisterns is also present. There is no acute intracranial hemorrhage or evidence of acute territorial infarction. No shift of the midline structures, mass effect, or extra-axial abnormalities are shown. Atherosclerotic calcifications are present in the intracranial segments of the internal carotid arteries. Imaged portions of the paranasal sinuses and mastoid air cells are clear. The orbits appear normal. There are no acute fractures of the calvaria or scalp swelling. Impression: No acute intracranial hemorrhage, no evidence of acute territorial infarction or other acute intracranial disease process. ACT 112: Negative or not required by law. Electronically signed by: Donaldo Pryor M.D. 01/23/2024 5:24 PM ECG Additional Comments: ECG revealed accelerated junctional rhythm at 113 bpm; QTc 644 (caution use of QT prolonging agents) Code Status & VTE Plan Code Status Full code VTE Prophylaxis Plan VTE Prophylaxis will be ordered: Yes Supervising Physician Co-Signing Physician Notes Patient seen and examined, chart reviewed, case discussed with Avelino Wheatley PA-C and I agree with the assessment and plan as above except as otherwise noted Labs and images reviewed Roger is a 68-year-old female with a past medical history of alcohol use up to a fifth a day to every other day of alcohol, depression, syncope, gastric bypass, and starvation ketosis who presented to the ER with dizziness, slurred speech, and unstable gait. Does have a history of alcohol withdrawal and abuse, last drink was morning of admission however poor gait and increased slurred speech have been present for 3 days. Patient reports that while she does normally have some slurred speech, her speech is much worse in the last 3-7 days than it normally is and has not improved throughout the day like it usually does when not drinking. Speech deficit is also present despite a negative alcohol level while in the ER. Denies focal limb weakness or sensory change. Was recommended for admission for potential alcohol withdrawal, and completion of a subacute stroke evaluation. CThead normal at time of admission. CT angios have been ordered. No headache. Patient is outside the window for TNKase if this is strokelike pathology. Differential includes stroke, EtOH, Wernicke's. No signs of infectious encephalopathy. Will complete stroke workup with MRI, followed angiography. Agree with AVSS protocol, high-dose thiamine repletion, folic acid repletion, and workup as above. PG Care Time/CCT Total # of Minutes Spent Total Time Spent with Patient: Total time spent is greater than 50% in coordination of care (as documented) at patient's floor/unit and/or counseling patient: [place] [address] INT INP/OBS CARE 3/75MIN Patient Type Established History Comprehensive Exam Comprehensive Medical Decision Making High Complexity Diagnoses Alcohol withdrawal F10.930 Complication of substance-induced condition: uncomplicated Altered mental status R41.82 Hyponatremia E87.1 Gait instability R26.81 Depression, unspecified depression type F32.A Depression Type: unspecified History of alcohol use Z87.898 (1) Alcohol withdrawal Complication of substance-induced condition: uncomplicated Qualified Code(s): F10.930 - Alcohol use, unspecified with withdrawal, uncomplicated (5) Depression Depression Type: unspecified Qualified Code(s): F32.A - Depression, unspecified
[2024-01-23 18:05] LABS: Magnesium 1.9 mg/dl (1.7-2.4)
[2024-01-23] MEDS ORDERED: LORazepam 1 MG in SYRINGE 0.5 ML IV PRN ×2 (18:10→20:37)
[2024-01-23 18:17] LABS: Troponin I High Sensitivity 7.7 pg/ml (0-14)
[2024-01-23] MEDS: LACTATED RINGER'S 1,000 ML IV SCH (18:36)
--- NOTE | 2024-01-23 18:40 | XRay Report ---
XR chest 1V portable CLINICAL HISTORY: cant walk TECHNIQUE: Single frontal radiograph of the chest was obtained. Comparison: Comparison is made to chest radiograph 11/16/2023 FINDINGS: No lines and tubes are seen. Calcified aortic knob is seen. The lungs are clear. No evidence of pleur al effusion or pneumothorax. IMPRESSION: No acute chest disease. ACT 112: Negative or not required by law. Electronically signed by: Donaldo Pryor M.D. 01/23/2024 6:38 PM
[2024-01-23] MEDS: OPTIRAY 320 125ml IV ONE (19:13)
[2024-01-23] MEDS ORDERED: LORazepam 2 MG in SYRINGE 1 ML IV PRN (20:37)
[2024-01-23] MEDS ORDERED: LORazepam 3 MG in SYRINGE 1.5 ML IV PRN (20:37)
[2024-01-23] MEDS ORDERED: traMADol HCL 50 MG TABLET PO PRN (20:37)
[2024-01-23] MEDS ORDERED: Ativan IV Alcohol Withdrawal--Active Protocol IV PRN (20:37)
--- OUTSIDE RECORDS SUMMARY | 2024-01-23 20:40 | External Medical Summary | Continuity of Care Document ---
Author Name Unknown Organization [address] [place] [phone] Care Team Providers Care Press Catcher Name Role Phone Emily Diehl Primary Care Physician [phone] Encounter [facility] [id number] Date(s): 12/18/23 - 12/18/23 [facility] [address] [facility] [address] [address] [phone] Encounter Diagnosis Encounter for completion of form with patient(Discharge Diagnosis) - 12/19/23 Hypoglycemia(Discharge Diagnosis) - 12/18/23 Anorexia symptom(Discharge Diagnosis) - 12/19/23 Discharge Disposition: Home or Self Care Attending [...] Recorded pneumococcal 23-valent vaccine 06/01/18 Recorded Medications Adult Multivitamin Gummies Start: 08/07/23 9:44:00 AM EST Start Date: 08/07/23 Status: Ordered alendronate 70 mg oral tablet Start: 06/09/23 4:02:00 PM EST, 12 each, TAKE 1 TABLET BY MOUTH EVERY 7 DAYS FOR 84 DAYS Start Date: 06/09/23 Status: Ordered cholecalciferol 25 mcg (1000 intl units) oral capsule Start: 06/09/23 4:02:00 PM EST, 3000 Unknown, Unknown Start Date: 06/09/23 Status: Ordered ferrous gluconate 324 mg (38 mg elemental iron) oral tablet Start: 06/09/23 4:02:00 PM EST, 30 each, TAKE 1 TABLET BY MOUTH EVERY DAY IN THE MORNING FOR 30 DAYS Start Date: 06/09/23 Status: Ordered hydrOXYzine pamoate 100 mg oral capsule Start: 06/09/23 4:04:00 PM EST, 30 each, TAKE 1 CAPSULE BY MOUTH AT BEDTIME Start Date: 06/09/23 Status: Ordered lisinopril 10 mg oral tablet Start: 09/23/23 6:56:00 AM EDT, 2 tab, PO, Daily, Disp# 180 tab, Refills: 3, Pharmacy: [facility]/pharmacy #[id number] Start Date: 09/23/23 Stop Date: 09/17/24 Status: Ordered ondansetron 4 mg oral tablet, disintegrating Start: 11/12/22 3:03:00 PM EDT Start Date: 11/12/22 Status: Ordered pantoprazole 40 mg oral delayed release tablet Start: 12/18/23 5:26:00 PM EDT, 1 tab, PO, bid, Disp# 60 tab, X 30 day, Refills: 0, Stop: 01/17/24 5:26:00 PM EDT, Pharmacy: [facility]/pharmacy #[id number] Start Date: 12/18/23 Stop Date: 01/17/24 Status: Ordered QUEtiapine 100 mg oral tablet Start: 04/28/23 11:57:00 AM EDT, 1 tab, PO, qhs, Disp# 30 tab, Refills: 5, Pharmacy: [facility]/pharmacy #[id number] Start Date: 04/28/23 Status: Ordered sertraline 100 mg oral tablet Start: 06/20/23 4:48:00 PM EST, 1 tab, PO, qhs, Disp# 30 tab, Refills: 11, Pharmacy: [facility]/pharmacy #[id number] Start Date: 06/20/23 Stop Date: 06/14/24 Status: Ordered thiamine Start: 06/09/23 4:03:00 PM EST, 200 Unknown, Unknown Start Date: 06/09/23 Status: Ordered traMADol 50 mg oral tablet Start: 08/18/23 9:38:00 AM EST, 1 tab, PO, q4h, PRN: as needed for pain Start Date: 08/18/23 Status: Ordered Valtrex Start: 01/16/23 9:14:00 AM EDT, as needed for cold sores Start Date: 01/16/23 Status: Ordered Mental Status 12/18/23 Barriers to Learning one year None evide nt Mandatory Health Literacy Documentation Yes Health Literacy Communication Barriers N ever Primary Language Panamanian Problem List Condition Confirmation Course Effective Dates Status Health St atus Informant Alcoholism Confirmed Active Facet arthropathy, lumbar Confirmed Active Tinnitus of both ears Confirmed Active Chronic anemia Confirmed Active Chronic diarrhea Confirmed Active Depression Confirmed Active Dysphagia Confirmed Active History of hiatal hernia Confirmed Active History of wrist fracture Confirmed Active Hiatal hernia Confirmed Active History of gastric bypass Confirmed Active HTN (hypertension) Confirmed Active Dyspepsia Confirmed Active Sacroiliitis Confirmed Active Peptic esophageal ulcer Confirmed Active Diagnosis Diagnosis Type Effective Dates Health Status Clinical Service Informant Hypoglycemia Discharge Diagnosis 12/18/23 Non-Specified Anorexia symptom Discharge Diagnosis 12/19/23 Non-Specified Encounter for completion of form with patient Discharge Diagnosis 12/19/23 Non-Specified Procedures Procedure Date Related Diagnosis Body [...] to oldest [Reference Range]: 1 Patient Weight 62.6 kg (12/18/23 3:50 PM) Temperature [36.5-37.9 DegC] 36.9 DegC (12/18/23 3:50 PM) Heart Rate 109 bpm (12/18/23 3:50 PM) Respiratory Rate 18 br/min (12/18/23 3:50 PM) Blood Pressure 96/56mmHg (12/18/23 3:50 PM) Social History Social History Type Response Smoking Status Never smoked cigaret arun Sex Female Patient Care team information Care Team Personnel Name: Fazal, PAEmily Cedeño Position: Physician Asst Yi - Family Med Member Role: Primary Care Provider Address: Address: [address] [facility] [facility] [address] [place] [address] Care Team Related Persons Name: KAROLINEANA KNIGHT Address: home [address] [place], [place] [id number]
--- OUTSIDE RECORDS SUMMARY | 2024-01-23 20:40 | External Medical Summary ---
Author Name UNSPECIFIED Address Unknown Organization [facility] History of Encounters Reason for Assessment: Discharge from [facility] Inpatient Facility where the patient been admitted: No inpatient facility admission Discharge Disposition: Patient remained in the community (without formal assistive services) Functional Assessment Bowel Incontinence Frequency: Very rarel y or never has bowel incontinence Cognitive and Behavioral and Psychiatric Symptoms: None Current Ability: Bathing: With the use o f devices, is able to bathe self in shower or tub independently, including getting in and out of the tub/shower. Current Ability: Ambulation: Requires us e of a two-handed device (e.g., walker or crutches) to walk alone on a level surface and/or requires human supervision or assistance to negotiate stairs or steps or uneven surfaces. Current: Management Of Oral Medications: Able to independently take the correct oral medication(s) and proper dosage(s) at the correct time
--- OUTSIDE RECORDS SUMMARY | 2024-01-23 20:40 | External Medical Summary ---
Author Name UNSPECIFIED Address Unknown Organization [facility] History of Encounters Reason for Assessment: Start of care - f urther visits planned Inpatient discharge facility: Past 14 Da ys: Discharged From Short Stay Acute Hospital Most Recent Inpatient Discharge Date: Functional Assessment Patient Living Situation: Patient Lives Alone: Around the clock When Dyspneic: When walking more th an 20 feet, climbing stairs Bowel Incontinence Frequency: One to thr ee times weekly When Anxious (Reported or Observed): Les s often than daily Cognitive and Behavioral and Psychiatric Symptoms: None Current Ability: Bathing: able to partic ipate in bathing self in shower or tub, but requires presence of another person throughout the bath for assistance or supervision. Current Ability: Ambulation: Able to wal k only with the supervision or assistance of another person at all times. Current: Management Of Oral Medications: Able to take medication(s) at the correct times if: (a) individual dosages are prepared in advance by another person; OR (b) another person develops a drug diary or chart Procedures Treated for Urinary Tract Infection in P ast 14 Days: Yes Problems Primary Home Care Diagnosis ICD Code: G8 9.29, Other chronic pain Home Care Diagnosis 1: ICD Code: M54.50^ ^ Home Care Diagnosis 1: Severity Ratin Home Care Diagnosis 2: ICD Code: R53.1, Weakness Home Care Diagnosis 2: Severity Ratin Home Care Diagnosis 3: ICD Code: E83.42, Hypomagnesemia Home Care Diagnosis 3: Severity Ratin Home Care Diagnosis 4: ICD Code: F32.A^^ ^ Home Care Diagnosis 4: Severity Ratin Home Care Diagnosis 5: ICD Code: F10.90^ ^ Home Care Diagnosis 5: Severity Ratin
[2024-01-23] MEDS: PANTOprazole 40 MG TAB PO SCH (21:07)
[2024-01-23] MEDS: MAGNESIUM OXIDE 400 MG TAB PO SCH (21:07)
[2024-01-23] MEDS: QUEtiapine FUMARATE 25 MG TABLET PO SCH (21:08)
[2024-01-23] MEDS: SERTRALINE HCL 100 MG TABLET PO SCH (21:08)
[2024-01-23] MEDS: hydrOXYzine HCl 25 MG TAB PO SCH (21:09)
[2024-01-23] MEDS: THIAMINE HCL 300 MG in SODIUM CHLORIDE 0.9% 50 ML IV STA (22:17)
--- NOTE | 2024-01-23 23:21 | Magnetic Resonance Report ---
Exam(s): MRI HEAD Without Contrast EXAM: MR Head Without Intravenous Contrast CLINICAL HISTORY: Reason for exam: Slurred speech; stroke r/o. TECHNIQUE: Magnetic resonance images of the head/brain without intravenous contrast in multiple planes. COMPARISON: CT head 01/23/2024. FINDINGS: Brain: Age-appropriate central and peripheral atrophy. No acute stroke. Mild degree of supratentorial periventricular and subcortical white matter hyperintensities on FLAIR and T2-weighted images. No mass lesion. No acute hemorrhage or abnormal extra-axial fluid collection. Ventricles: No midline shift. No ventriculomegaly. Bones/joints: Unremarkable. No acute fracture. Sinuses: Unremarkable as visualized. No acute sinusitis. Mastoid air cells: Unremarkable as visualized. No mastoid effusion. Orbits: Unremarkable as visualized. IMPRESSION: 1. No acute stroke or hemorrhage. 2. Nonspecific white matter changes most commonly seen with small vessel disease. Electronically signed by: Kurt Luna M.D. 01/23/24 23:21 PM
--- NOTE | 2024-01-23 23:25 | CT Scan Report ---
Exam(s): CTA HEAD With Contrast IV Amt: 119 ML OPTIRAY 320 EXAM: CT Angiography Head With Intravenous Contrast CLINICAL HISTORY: Reason for exam: slurred speech. TECHNIQUE: Axial computed tomographic angiography images of the head with intravenous contrast. CTDI is 24.5 mGy and DLP is 435.19 mGy-cm. Automated exposure control was utilized for the study. A dose lowering technique was utilized adhering to the principles of ALARA. 3D and MIP reconstructed images were created and reviewed. CONTRAST: Patient received 119 ML OPTIRAY 320 of IV contrast COMPARISON: CT head 01-23-2024 FINDINGS: Right internal carotid artery: Mild calcified plaque at the cavernous internal carotid artery with intact distal runoff. No aneurysm. Right anterior cerebral artery: Unremarkable. No occlusion or significant stenosis. No aneurysm. Right middle cerebral artery: Unremarkable. No occlusion or significant stenosis. No aneurysm. 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 No occlusion or significant stenosis. No aneurysm. Right vertebral artery: Unremarkable as visualized. Left internal carotid artery: Mild calcified plaque at the cavernous internal carotid artery with intact distal runoff. No aneurysm. Left anterior cerebral artery: Unremarkable. No occlusion or significant stenosis. No aneurysm. Left middle cerebral artery: Unremarkable. No occlusion or significant stenosis. No aneurysm. Left posterior cerebral artery: Congenital variation with hypoplastic P1 segment of the left posterior cerebral artery with a patent left posterior communicating artery supplying remainder of left posterior cerebral artery. No occlusion or significant stenosis. No aneurysm. Left vertebral artery: Unremarkable as visualized. Basilar artery: Unremarkable. No occlusion or significant stenosis. No aneurysm. IMPRESSION: No large vessel occlusion. Electronically signed by: Kurt Luna M.D. 01/23/24 23:24 PM
--- NOTE | 2024-01-23 23:30 | CT Scan Report ---
Exam(s): CTA NECK With Contrast IV Amt: 119 ML OPTIRAY 320 EXAM: CT Angiography Neck With Intravenous Contrast CLINICAL HISTORY: Reason for exam: slurred speech. TECHNIQUE: Routine carotid CT angiography protocol was performed with intravenous contrast. NASCET criteria using the distal ICAs for comparison were used for evaluation of stenoses. CTDI is 12.15 mGy and DLP is 435.9 mGy-cm. Automated exposure control was utilized for the study. A dose lowering technique was utilized adhering to the principles of ALARA. 3D and MIP reconstructed images were created and reviewed. CONTRAST: Patient received 119 ML OPTIRAY 320 of IV contrast COMPARISON: None. FINDINGS: VASCULATURE: Right common carotid artery: Unremarkable. No occlusion or significant stenosis. No dissection. Right internal carotid artery: Mild calcified plaque at the right carotid bulb without a hemodynamically significant stenosis.. No dissection. Right external carotid artery: Unremarkable. No occlusion. Right vertebral artery: Unremarkable. No occlusion or significant stenosis. No dissection. Left common carotid artery: Unremarkable. No occlusion or significant stenosis. No dissection. Left internal carotid artery: Mild calcified plaque at the left carotid bulb without a hemodynamically significant stenosis.. No dissection. Left external carotid artery: Unremarkable. No occlusion. Left vertebral artery: Unremarkable. No occlusion or significant stenosis. No dissection. NECK: Bones/joints: Degenerative changes of the spine. No acute fracture. Soft tissues: Unremarkable. Lung apices: Clear. CAROTID STENOSIS REFERENCE USING NASCET CRITERIA: % ICA stenosis = (1 - narrowest ICA diameter/diameter of distal cervical ICA) x 100. Mild - <50% stenosis. Moderate - 50-69% stenosis. Severe - 70-94% stenosis. Near occlusion - 95-99% stenosis. Occluded - 100% stenosis. IMPRESSION: No hemodynamically significant stenosis. Electronically signed by: Kurt Luna M.D. 01/23/24 23:29 PM
[2024-01-24] MEDS: ACETAMINOPHEN 325 MG TAB PO PRN (02:07)
[2024-01-24 06:23] LABS: Basophils # (auto) 0.02 K/uL (0.00-0.20); Basophils % (auto) 0.4 %; Eosinophils # (auto) 0.03 K/uL (0.00-0.50); Eosinophils % (auto) 0.6 %; Hematocrit (blood only) 25.1 % (37.0-47.0); Hemoglobin 8.6 g/dl (12.0-16.0); Immature Granulocytes # (auto) 0.02 K/uL (0.01-0.20); Immature Granulocytes % (auto) 0.4 %; Lymphocytes # (auto) 1.59 K/uL (1.20-3.40); Mean Corpuscular Hemoglobin 30.7 pg (25.0-34.0); Mean Corpuscular Hgb Conc 34.3 g/dL (32.0-36.0); Mean Corpuscular Volume 89.6 fL (80.0-100.0); Mean Platelet Volume 10.2 fL (9.4-12.4); Monocytes # (auto) 0.43 K/uL (0.11-0.59); Monocytes % (auto) 9.2 %; Neutrophils # (auto) 2.58 K/uL (1.40-6.50); Neutrophils % (auto) 55.4 %; Platelet Count 124 K/uL (130-400); RDW Coefficient of Variation 16.2 % (11.5-14.5); RDW Standard Deviation 53.1 fL (36.4-46.3); White Blood Count 4.67 K/ul (4.8-10.8)
[2024-01-24 06:37] LABS: BUN Creatinine Ratio 20.5 (10-20); Chol HDL Ratio 1.5 (0-5); Creatinine Clr Calc Pharmacy 41.5 ml/min; Est GFR (African American) 58.5 ml/min; Est GFR (Non-African American) 50.4 ml/min; Magnesium 1.8 mg/dl (1.7-2.4); Phosphorus 1.9 mg/dl (2.5-4.9); Potassium 3.7 mmol/L (3.5-5.1)
[2024-01-24 07:33] LABS: Estimated Average Glucose 91 mg/dl; Hemoglobin A1C 4.8 % (4.5-5.6)
[2024-01-24] MEDS: FOLIC ACID 1 MG TAB PO SCH (08:43)
[2024-01-24] MEDS: THIAMINE HCL 300 MG in SODIUM CHLORIDE 0.9% 50 ML IV ONE (08:44)
[2024-01-24] MEDS ORDERED: THIAMINE HCL 100 MG TAB PO SCH (09:00)
[2024-01-24] MEDS ORDERED: ONDANSETRON 4 MG OD TAB PO PRN (16:16)
[2024-01-24] MEDS ORDERED: ACETAMINOPHEN 500 MG TAB PO PRN (16:16)
--- NOTE | 2024-01-24 16:21 | Hospitalist Progress Note ---
Date of Service January 24, 2024 Assessment & Plan (1) Acute hyponatremia: Plan Visual hallucinations Supportive care Outpatient psychiatry follow up Alcohol use disorder Limit or stop alcohol consumption Cont Folate and thiamine supplementation monitor and treat withdrawal s/s as indicated Hyponatremia Likely poor solute intake Mild / IVF, repeat BMP Anemia Acute decline may be due to IVF Unknown baseline Check FOBT, Repeat CBC / Outpatient follow up Gen weakness Deconditioning PT/OT Eval OOB with assist fall precautions DVT Px Full code Admission and Anticipated Discharge Date Admission Date: January 23, 2024 Subjective still experiencing visual hallucinations but improved - chronic history, denies hearing voices but says that the people are talking among themselves and not to her, denies tremor, anxiety, agitation / alcohol withdrawal symptoms Physical Exam Physical Exam: Resting comfortably, non toxic lungs clear to auscultation b/l heart RRR PA Soft, NT, ND, BS+ Skin no rash AAO#3, Non focal pleasant and cooperative Results & Data Results & Data Vital Signs (Past 12 Hours) Vital Signs Temp Pulse Pulse Resp BP Pulse Ox O2 Del Method 01/24/24 14:34 36.4 C L 106 H 17 122/84 96 Room Air 01/24/24 10:37 36.7 C 99 H 16 113/76 98 Room Air 01/24/24 07:19 99 H 01/24/24 07:19 Room Air 01/24/24 07:19 36.4 C L 102 H 17 122/83 99 Room Air reviewed Laboratory Results reviewed PG Care Time/CCT Total # of Minutes Spent Total Time Spent with Patient: Total time spent is greater than 50% in coordination of care (as documented) at patient's floor/unit and/or counseling patient: Coding Level of Care Code 23743 SUB INP/OBS CARE 2/35MIN Diagnoses Acute hyponatremia E87.1
[2024-01-24] MEDS: SODIUM CHLORIDE 0.9% 1,000 ML IV SCH (16:41)
[2024-01-24] MEDS: lisinopril 20 MG TAB PO SCH (20:21)
[2024-01-25 07:37] LABS: Basophils # (auto) 0.02 K/uL (0.00-0.20); Basophils % (auto) 0.4 %; Eosinophils # (auto) 0.07 K/uL (0.00-0.50); Eosinophils % (auto) 1.6 %; Hematocrit (blood only) 25.5 % (37.0-47.0); Hemoglobin 8.7 g/dl (12.0-16.0); Immature Granulocytes # (auto) 0.02 K/uL (0.01-0.20); Immature Granulocytes % (auto) 0.4 %; Lymphocytes # (auto) 1.65 K/uL (1.20-3.40); Lymphocytes % (auto) 36.7 %; Mean Corpuscular Hemoglobin 31.5 pg (25.0-34.0); Mean Corpuscular Hgb Conc 34.1 g/dL (32.0-36.0); Mean Corpuscular Volume 92.4 fL (80.0-100.0); Mean Platelet Volume 10.6 fL (9.4-12.4); Monocytes # (auto) 0.42 K/uL (0.11-0.59); Monocytes % (auto) 9.3 %; Neutrophils # (auto) 2.32 K/uL (1.40-6.50); Neutrophils % (auto) 51.6 %; Platelet Count 136 K/uL (130-400); RDW Coefficient of Variation 16.3 % (11.5-14.5); RDW Standard Deviation 54.5 fL (36.4-46.3); Red Blood Count 2.76 M/uL (4.20-5.40)
[2024-01-25 07:59] LABS: BUN Creatinine Ratio 18.4 (10-20); Calcium 9.1 mg/dl (8.6-10.3); Creatinine Clr Calc Pharmacy 45.1 ml/min; Est GFR (African American) 64.7 ml/min; Est GFR (Non-African American) 55.8 ml/min; Potassium 3.5 mmol/L (3.5-5.1)
[2024-01-25] MEDS: CHOLECALCIFEROL 125 MCG (5,000 UNITS) TAB PO SCH (08:06)
[2024-01-25] MEDS: THIAMINE HCL 100 MG TAB PO SCH (08:06)
[2024-01-25] MEDS ORDERED: FOLIC ACID 1 MG TAB PO SCH (09:00)
[2024-01-25] MEDS: CETIRIZINE HCL 10 MG TABLET PO PRN (11:07)
--- NOTE | 2024-01-25 13:38 | Hospitalist Progress Note ---
Date of Service January 25, 2024 Assessment & Plan (1) Acute hyponatremia: Plan Visual hallucinations Supportive care Outpatient psychiatry follow up Alcohol use disorder Limit or stop alcohol consumption Cont Folate and thiamine supplementation monitor and treat withdrawal s/s as indicated Interested in inpatient alcohol rehab - case management aware Hyponatremia - resolved Likely poor solute intake Mild / IVF, repeat BMP Anemia - currently stable after initial decline Acute decline may be due to IVF Unknown baseline Check FOBT / Outpatient follow up Depression Regimen effective but patient is noncompliant Gen weakness Deconditioning PT/OT Eval completed - recommended rehab OOB with assist fall precautions DVT Px Full code Discharge when alcohol rehab bed is available Admission and Anticipated Discharge Date Admission Date: January 23, 2024 Subjective no hallucination or alcohol withdrawal symptoms Physical Exam Physical Exam: Resting comfortably, non toxic lungs clear to auscultation b/l heart RRR PA Soft, NT, ND, BS+ Skin no rash AAO#3, Non focal pleasant and cooperative Results & Data Results & Data Vital Signs (Past 12 Hours) Vital Signs Temp Pulse Resp BP Pulse Ox O2 Del Method 01/25/24 11:27 Room Air 01/25/24 07:23 36.7 C 87 18 104/71 97 Room Air reviewed PG Care Time/CCT Total # of Minutes Spent Total Time Spent with Patient: Total time spent is greater than 50% in coordination of care (as documented) at patient's floor/unit and/or counseling patient: Coding Level of Care Code 32174 SUB INP/OBS CARE 2/35MIN Diagnoses Acute hyponatremia E87.1
[2024-01-25] MEDS: valACYclovir HCL 500 MG TABLET PO ONE (16:56)
[2024-01-25] MEDS: LIDOCAINE VISCOUS 2% 15 ML UDC MT PRN (20:09)
[2024-01-26] MEDS: ALENDRONATE SODIUM 70 MG TAB PO SCH (06:27)
[2024-01-26 06:53] LABS: Basophils # (auto) 0.02 K/uL (0.00-0.20); Basophils % (auto) 0.4 %; Eosinophils # (auto) 0.12 K/uL (0.00-0.50); Eosinophils % (auto) 2.5 %; Hematocrit (blood only) 26.7 % (37.0-47.0); Hemoglobin 8.8 g/dl (12.0-16.0); Immature Granulocytes # (auto) 0.03 K/uL (0.01-0.20); Immature Granulocytes % (auto) 0.6 %; Lymphocytes # (auto) 1.94 K/uL (1.20-3.40); Lymphocytes % (auto) 41.1 %; Mean Corpuscular Hemoglobin 31.2 pg (25.0-34.0); Mean Corpuscular Volume 94.7 fL (80.0-100.0); Mean Platelet Volume 10.3 fL (9.4-12.4); Monocytes # (auto) 0.54 K/uL (0.11-0.59); Monocytes % (auto) 11.4 %; Neutrophils # (auto) 2.07 K/uL (1.40-6.50); Platelet Count 147 K/uL (130-400); RDW Coefficient of Variation 16.8 % (11.5-14.5); RDW Standard Deviation 57.2 fL (36.4-46.3); Red Blood Count 2.82 M/uL (4.20-5.40); White Blood Count 4.72 K/ul (4.8-10.8)
[2024-01-26 07:11] LABS: BUN Creatinine Ratio 20.7 (10-20); Calcium 9.1 mg/dl (8.6-10.3); Creatinine Clr Calc Pharmacy 43.8 ml/min; Est GFR (Non-African American) 48.3 ml/min; Potassium 3.7 mmol/L (3.5-5.1)
[2024-01-26] MEDS: valACYclovir HCL 500 MG TABLET PO ONE (11:34)
[2024-01-26] MEDS: NALTREXONE HCL 50 MG TAB PO SCH (13:20)
--- NOTE | 2024-01-26 15:20 | Hospitalist Progress Note ---
Date of Service January 26, 2024 Assessment & Plan (1) Acute hyponatremia: Plan Visual hallucinations Supportive care Outpatient psychiatry follow up Alcohol use disorder Limit or stop alcohol consumption Cont Folate and thiamine supplementation, started naltrexone PO but monthly IM inj once at rehab monitor and treat withdrawal s/s as indicated Interested in inpatient alcohol rehab - case management aware Hyponatremia - resolved Likely poor solute intake Mild / IVF, repeat BMP Anemia - currently stable after initial decline Acute decline may be due to IVF Unknown baseline Check FOBT / Outpatient follow up Depression Regimen effective but patient is noncompliant Gen weakness Deconditioning PT/OT Eval completed - recommended rehab OOB with assist fall precautions DVT Px Full code Discharge when alcohol rehab bed is available Admission and Anticipated Discharge Date Admission Date: January 23, 2024 Subjective no hallucination or alcohol withdrawal symptoms, no complaints, wants to start naltrexone Physical Exam Physical Exam: Resting comfortably, non toxic lungs clear to auscultation b/l heart RRR PA Soft, NT, ND, BS+ Skin no rash AAO#3, Non focal pleasant and cooperative Results & Data Results & Data Vital Signs (Past 12 Hours) Vital Signs Temp Pulse Resp BP Pulse Ox O2 Del Method 01/26/24 08:00 Room Air 01/26/24 07:44 37 C 78 16 107/72 98 Room Air reviewed PG Care Time/CCT Total # of Minutes Spent Total Time Spent with Patient: Total time spent is greater than 50% in coordination of care (as documented) at patient's floor/unit and/or counseling patient: Coding Level of Care Code 33434 SUB INP/OBS CARE 2/35MIN Diagnoses Acute hyponatremia E87.1
[2024-01-27] MEDS ORDERED: THIAMINE HCL 100 MG in SYRINGE 9 ML IV SCH (09:00)
--- NOTE | 2024-01-27 13:37 | Hospitalist Progress Note ---
Date of Service January 27, 2024 Assessment & Plan (1) Severe alcohol use disorder: Plan: 68-year-old woman with severe alcohol use disorder admitted with slurred speech and unsteady gait worse than baseline underwent stroke evaluation at time of admission which was negative for any acute findings mild hyponatremia with Na 131 on admission has resolved alcoholic hallucinosis resolved symptoms appear to have been alcohol related and resolved -continue thiamine supplementation, check B1 level -not in acute alcohol withdrawal -being evaluated for placement at inpatient alcohol rehab program. discussed with care coordination (2) Major depression: Plan: Longstanding history of depression at least partially responsive to sertraline complicated by AUD Endorsing ongoing SI with recent intent "to drink myself to " and had recently comtemplated mixing pills and alcohol for this purpose Associated symptoms of insomnia, anorexia -continue sertraline -consult psychiatry -B12 and TSH recently normal Admission and Anticipated Discharge Date Admission Date: January 23, 2024 Subjective depressed mood recently and states she has been trying to drink herself to recently and also that she had contemplated taking pills mixed with alcohol feels that if she is home unsupervised she will go back to this, though feels safe in hospital has been on sertraline for many years which is at least partially effective, moved here fairly recently and no local mental health provider no symptoms of alcohol withdrawal, physically feeling pretty good at this point Physical Exam 2 Physical Exam: PHYSICAL EXAMINATION Last 24h vital signs reviewed, see documentation in flowsheet General: comfortable appearing, no distress, sitting up alert in bed HEENT: Normocephalic, atraumatic, pupils round and equal, sclerae anicteric, no conjunctival injection, moist mucus membranes Lungs: Normal respiratory effort. Heart: deferred Abdomen: Soft, nondistended. Extremities: Warm, dry, well-perfused. No extremity edema. Neuro: Alert and oriented x 4, face symmetric, moves 4 extremities well, not tremulous, skin warm and dry Psych: Normal affect and behavior, depressed mood, endorses recent suicidal ideation, no current hallucinations Results & Data Results & Data Vital Signs (Past 12 Hours) Vital Signs Temp Pulse Resp BP Pulse Ox O2 Del Method 01/27/24 07:50 36.6 C 84 18 108/67 99 Room Air Laboratory Results 01/26/24 06:10 01/26/24 06:10 PG Care Time/CCT Total # of Minutes Spent Total Time Spent with Patient: Total time spent is greater than 50% in coordination of care (as documented) at patient's floor/unit and/or counseling patient: Coding Level of Care Code 25545 SUB INP/OBS CARE MIN Diagnoses Severe alcohol use disorder F10.20 Major depression F32.9
[2024-01-27] MEDS: valACYclovir HCL 500 MG TABLET PO SCH (14:01)
--- NOTE | 2024-01-27 16:33 | Psychiatric Consultation ---
Date of Consultation January 27, 2024 Impression / Recommendations Impression Diagnostically consistent with alcohol use disorder as well as unspecified depression likely a combination of substance-induced as well as MDD vs persistent depressive disorder. Acute risk of self-harm is low given denial of SI and no longer with intoxication and motivated for residential substance use treatment. Chronic risk of self-harm and harm to others is slightly increased due to substance use with substance use treatment being the most significant modifiable risk factor to reduce acute and chronic risk. Encouragingly she is motivated for residential substance use treatment which is likely to be the most helpful acute intervention for her depression and alcohol use disorder. Motivational interviewing done regarding her alcohol use, she is in the action stage of change. Consider increasing sertraline if cardiac status is stable (QTc<500ms). Reasonable to continue with Seroquel and Vistaril. Agree with naltrexone 50mg. Overall, I spent a total of 60 minutes with this case including review of chart records, review of labwork, review of EKG QTc, direct evaluation of the patient at bedside, counseling the patient, discussion of the patient with the hospitalist provider, discussion with the psychiatric liason during clinical rounds and documentation in the electronic health record. (1) Depression: Depression Type: unspecified Qualified Code(s): F32.A - Depression, unspecified (2) Severe alcohol use disorder: Plan -CM working on residential substance use treatment placement -Psychiatric liason will provide resources on local mental health services and substance use services -Patient is not an imminent danger to self or others and does not meet criteria for involuntary psychiatric commitment -Consider increasing sertraline to 150mg HS. Could be increased further to 200mg HS if symptoms persist after 4-6 weeks despite initial dose increase. IF symptoms persist even after optimizing sertraline dose and in the absence of alcohol use then would consider trial of SNRI. Psych History Identifying Data 68 yo woman with history of depression and alcohol use disorder admitted medically for alcohol withdrawal. Psychiatry consulted for risk assessment, recommendations for depression. Chief Complaint "I've been depressed for years". History of Present Illness Pretty was admitted for alcohol withdrawal and case management is working on referrals for residential substance use treatment. She reports ongoing depression, largely low motivation, low appetite, sleep difficulty (though finds Seroquel and Vistaril very helpful for this) as well as significant alcohol use (typically drinks 0.75L of rum daily). Depression and alcohol use have both been present for many years. At times she has experienced suicidal thoughts of drinking herself to or mixing pills with alcohol to however, denies any prior suicide attempts. She denies any current SI. Last instance of SI was more than two weeks ago. She is future-oriented, wonders about possible services after she completes residential treatment and is appreciative to be living near her daughter who is a strong reason for living. In terms of alcohol use, her longest period of sobriety was 5 years and she credit her avoidance of use during this time to monitoring through a professional recovery program which included random UDS's. Since the program ended in 2013, she has been drinking consistently, consuming large amounts of rum daily. She has been to residential treatment programs in the past, with last stay being a 5-day detox program in 2018. No history of psychiatric hospitalization or prior suicide attempts. Family history of suicide with brother dying by suicide. Currently taking seroquel and vistaril for sleep, no significant anxiety issues. Previously tried naltrexone for AUD, found Vivitrol very helpful but had injection site reactions and has been less adherent with naltrexone po. Has been on sertraline on and off for many years with good effect at times. Most recently re-started it and has been taking it consistently for the last 2-3 months. She is interested in trying a dose increase to see if this will further help with depression. Allergies Allergy/AdvReac Type Severity Reaction Status Date / Time No Known Allergies Allergy Verified 11/16/23 23:27 Home Medications Medication Instructions Recorded Confirmed Type quetiapine 100 mg tablet 50 mg PO HS 10/22/22 01/23/24 History hydroxyzine pamoate 100 mg capsule 100 mg PO UD 01/07/23 01/23/24 History sertraline 100 mg tablet (Zoloft) 100 mg PO UD 01/07/23 01/23/24 History lisinopril 10 mg tablet 20 mg PO HS 01/31/23 01/23/24 History alendronate 70 mg tablet 70 mg PO Q7D 04/26/23 01/23/24 History valacyclovir 1 gram tablet 1,000 mg PO UD PRN Cold Sores 07/21/23 01/23/24 History cholecalciferol (vitamin D3) 125 125 mcg PO QAM #90 tabs 10/26/23 01/23/24 Rx mcg (5,000 unit) tablet thiamine HCl (vitamin B1) 100 mg 100 mg PO QAM #90 tabs 10/26/23 01/23/24 Rx tablet acetaminophen 500 mg tablet 1,000 mg PO BID PRN Pain (Scale 11/16/23 01/23/24 History (Tylenol Extra Strength) Score 1-3) magnesium oxide 400 mg (241.3 mg 400 mg PO BID #60 tabs 11/21/23 01/23/24 Rx magnesium) tablet tramadol 50 mg tablet 50 mg PO Q6H PRN pain #20 tabs 11/21/23 01/23/24 Rx folic acid 1 mg tablet 1 mg PO UD 01/23/24 01/23/24 History ondansetron 4 mg disintegrating 4 mg PO UD PRN nausea and vomiting 01/23/24 01/23/24 History tablet pantoprazole 40 mg tablet,delayed 40 mg PO BID 01/23/24 01/23/24 History release Patient History Medical History GERD (gastroesophageal reflux disease) Alcohol use disorder Osteoarthritis Acid reflux Anemia History of depression Insomnia Hypertension Surgical History H/O gastric bypass History of section x 1 History of open reduction and internal fixation (ORIF) procedure right wrist--hardware in place History of total left hip replacement History of colonoscopy History of esophagogastroduodenoscopy (EGD) History of wisdom tooth extraction History of cholecystectomy H/O: hysterectomy Family History Other No family history of adverse response to anesthesia Social History Smoking Status: Never smoker Second Hand Exposure: No; Do You Dip or Chew Tobacco: No; Tobacco Cessation Education Requested by Patient: No Hx Alcohol Use: Yes Alcohol type: hard liquor Hx Substance Use: No Preferred Language: Maori Communication Ability: Effective Dance Costume Designer Required: No Beliefs That Will Affect Care: None Current Living Situation: Personal Care Facility Current Living Situation Comment: Lives at [facility] Other Information That Helps Us Care for You: No Feels Safe at Home: Yes Safety Concerns: Feels Safe At This Time Assistive Devices: Walker Physical Exam Psychiatric: Orientation: alert and oriented x 3 Apperance: appropriately dressed and appropriately groomed Eye Contact: good eye contact Motor Behavior: no abnormal motor movements Speech: normal rate/rhythm/volume of speech Affect: + constricted affect Mood: + depressed mood; no anxious mood Thought Process: goal directed thought process Thought Content: reality based without delusions Suicidal Thoughts: denies suicidal thoughts Homicidal Thoughts: denies homicidal thoughts Hallucinations: no auditory hallucinations and no visual hallucinations Cognition: attention grossly intact and language grossly intact Estimated Intelligence: consistent with education level Insight: + fair insight Judgment: + fair judgement Vital Signs (Past 24 Hours): Last Vital Signs Temp 36.6 C 01/27/24 07:50 Pulse 84 01/27/24 07:50 Resp 18 01/27/24 07:50 BP 108/67 01/27/24 07:50 Pulse Ox 99 01/27/24 07:50 O2 Del Method Room Air 01/27/24 07:50 Results & Data (PSY) Medications Administered Acetaminophen (Acetaminophen 325 Mg Tab) 650 mg PO Q4H PRN PRN Reason: Pain or Fever Stop: 02/22/24 20:36 Last Admin: 01/25/24 11:06 Dose: 650 mg Documented By: Admin: 01/25/24 01:06 Dose: 650 mg Documented By: Admin: 01/24/24 12:31 Dose: 650 mg Documented By: Admin: 01/24/24 02:07 Dose: 650 mg Documented By: FRANCESCA Alendronate Sodium (Alendronate Sodium 70 Mg Tab) 70 mg PO Mo@0630 [facility] Stop: 02/25/24 06:29 Last Admin: 01/26/24 06:27 Dose: 70 mg Documented By: CHRIS Cetirizine HCl (Cetirizine Hcl 10 Mg Tablet) 10 mg PO QAM PRN PRN Reason: Allergic Symptoms Stop: 02/24/24 08:59 Last Admin: 01/26/24 13:20 Dose: 10 mg Documented By: Admin: 01/25/24 11:07 Dose: 10 mg Documented By: IKER Folic Acid (Folic Acid 1 Mg Tab) 1 mg PO QAM [facility] Stop: 02/23/24 08:59 Last Admin: 01/27/24 08:36 Dose: 1 mg Documented By: Admin: 01/26/24 08:09 Dose: 1 mg Documented By: Admin: 01/25/24 08:06 Dose: 1 mg Documented By: Admin: 01/24/24 08:43 Dose: 1 mg Documented By: MARLEY Hydroxyzine HCl (Hydroxyzine Hcl 25 Mg Tab) 150 mg PO HS [facility] Stop: 02/22/24 20:59 Last Admin: 01/26/24 20:07 Dose: 150 mg Documented By: Admin: 01/25/24 21:49 Dose: 150 mg Documented By: Admin: 01/24/24 20:21 Dose: 150 mg Documented By: Admin: 01/23/24 21:09 Dose: 150 mg Documented By: FRANCESCA Lidocaine HCl (Lidocaine Viscous 2% 15 Ml Udc) 15 ml MT Q4H PRN PRN Reason: mouth pain Stop: 02/24/24 16:40 Last Admin: 01/26/24 11:34 Dose: 15 ml Documented By: Admin: 01/25/24 20:09 Dose: 15 ml Documented By: CHRIS Lisinopril (Lisinopril 20 Mg Tab) 20 mg PO HS [facility] Stop: 02/23/24 20:59 Last Admin: 01/26/24 20:08 Dose: 20 mg Documented By: Admin: 01/25/24 20:09 Dose: 20 mg Documented By: Admin: 01/24/24 20:21 Dose: 20 mg Documented By: CHRIS Magnesium Oxide (Magnesium Oxide 400 Mg Tab) 400 mg PO BID [facility] Stop: 02/22/24 20:59 Last Admin: 01/27/24 08:36 Dose: 400 mg Documented By: Admin: 01/26/24 20:08 Dose: 400 mg Documented By: Admin: 01/26/24 08:09 Dose: 400 mg Documented By: Admin: 01/25/24 20:08 Dose: 400 mg Documented By: Admin: 01/25/24 08:07 Dose: 400 mg Documented By: Admin: 01/24/24 20:21 Dose: 400 mg Documented By: Admin: 01/24/24 08:43 Dose: 400 mg Documented By: Admin: 01/23/24 21:07 Dose: 400 mg Documented By: FRANCESCA Naltrexone HCl (Naltrexone Hcl 50 Mg Tab) 50 mg PO DAILY [facility] Stop: 02/25/24 11:44 Last Admin: 01/27/24 08:36 Dose: 50 mg Documented By: Admin: 01/26/24 13:20 Dose: 50 mg Documented By: IKER Pantoprazole Sodium (Pantoprazole 40 Mg Tab) 40 mg PO BID [facility] Stop: 02/22/24 20:59 Last Admin: 01/27/24 08:37 Dose: 40 mg Documented By: Admin: 01/26/24 20:07 Dose: 40 mg Documented By: Admin: 01/26/24 08:09 Dose: 40 mg Documented By: Admin: 01/25/24 20:09 Dose: 40 mg Documented By: Admin: 01/25/24 08:05 Dose: 40 mg Documented By: Admin: 01/24/24 20:21 Dose: 40 mg Documented By: Admin: 01/24/24 08:43 Dose: 40 mg Documented By: Admin: 01/23/24 21:07 Dose: 40 mg Documented By: FRANCESCA Quetiapine Fumarate (Quetiapine Fumarate 25 Mg Tablet) 50 mg PO [facility] Stop: 02/22/24 20:59 Last Admin: 01/26/24 20:07 Dose: 50 mg Documented By: Admin: 01/25/24 20:09 Dose: 50 mg Documented By: Admin: 01/24/24 20:21 Dose: 50 mg Documented By: Admin: 01/23/24 21:08 Dose: 50 mg Documented By: FRANCESCA Sertraline HCl (Sertraline Hcl 100 Mg Tablet) 100 mg PO [facility] Stop: 02/22/24 20:59 Last Admin: 01/26/24 20:08 Dose: 100 mg Documented By: Admin: 01/25/24 20:09 Dose: 100 mg Documented By: Admin: 01/24/24 20:22 Dose: 100 mg Documented By: Admin: 01/23/24 21:08 Dose: 100 mg Documented By: FRANCESCA Thiamine HCl (Thiamine Hcl 100 Mg Tab) 100 mg PO [facility] Stop: 02/24/24 08:59 Last Admin: 01/27/24 08:36 Dose: 100 mg Documented By: Admin: 01/26/24 08:09 Dose: 100 mg Documented By: Admin: 01/25/24 08:06 Dose: 100 mg Documented By: IKER Valacyclovir HCl (Valacyclovir Hcl 500 Mg Tablet) 1,000 mg PO DAILY [facility] Stop: 01/29/24 13:29 Last Admin: 01/27/24 14:01 Dose: 1,000 mg Documented By: RODOLFO Vitamin D (Cholecalciferol 125 Mcg (5,000 Units) Tab) 125 mcg PO [facility] Stop: 02/24/24 08:59 Last Admin: 01/27/24 08:36 Dose: 125 mcg Documented By: Admin: 01/26/24 08:08 Dose: 125 mcg Documented By: Admin: 01/25/24 08:06 Dose: 125 mcg Documented By: IKER Coding Level of Care Code 83671 IN/OBS CONSULT LVL 4,60M Diagnoses Depression, unspecified depression type F32.A Depression Type: unspecified Severe alcohol use disorder F10.20
--- NOTE | 2024-01-28 14:51 | Hospitalist Progress Note ---
Date of Service January 28, 2024 Assessment & Plan (1) Severe alcohol use disorder: Plan: 68-year-old woman with severe alcohol use disorder admitted with slurred speech and unsteady gait worse than baseline underwent stroke evaluation at time of admission which was negative for any acute findings mild hyponatremia with Na 131 on admission has resolved alcoholic hallucinosis resolved symptoms appear to have been alcohol related and resolved -continue thiamine supplementation, B1 level pending - has not had alcohol withdrawal -being evaluated for placement at inpatient alcohol rehab program. insurance still pending (2) Major depression: Plan: Longstanding history of depression at least partially responsive to sertraline complicated by AUD Endorsing ongoing SI with recent intent "to drink myself to " and had recently comtemplated mixing pills and alcohol for this purpose Associated symptoms of insomnia, anorexia - consulted psychiatrist, no active suicidal ideation, recommended increasing sertraline to 150 mg. Obtained updated EKG junctional rhythm has resolved QTc is around 450 - increased sertraline, continue at bedtime Seroquel - outpatient mental health follow-upneeds to establish locally -B12 and TSH recently normal Admission and Anticipated Discharge Date Admission Date: January 23, 2024 Subjective doing pretty well today no psychiatrist yesterday in agreement to try increasing sertraline. No alcohol withdrawal symptoms have occurred this admission Physical Exam Physical Exam: PHYSICAL EXAMINATION Last 24h vital signs reviewed, see documentation in flowsheet General: comfortable appearing, no distress, awake sitting in bed finishing lunch HEENT: Normocephalic, atraumatic, pupils round and equal, sclerae anicteric, no conjunctival injection, moist mucus membranes Lungs: Normal respiratory effort. Heart: deferred Abdomen: Soft, nondistended. Extremities: Warm, dry, well-perfused. No extremity edema. Neuro: Alert and oriented x 4, face symmetric, moves 4 extremities well, not tremulous, skin warm and dry Psych: Normal affect and behavior, depressed mood Results & Data Results & Data Vital Signs (Past 12 Hours) Vital Signs Temp Pulse Resp BP Pulse Ox O2 Del Method 01/28/24 07:14 36.6 C 83 16 127/78 95 Room Air PG Care Time/CCT Total # of Minutes Spent Total Time Spent with Patient: Total time spent is greater than 50% in coordination of care (as documented) at patient's floor/unit and/or counseling patient: Coding Level of Care Code 63189 SUB INP/OBS CARE MIN Diagnoses Severe alcohol use disorder F10.20 Major depression F32.9
--- NOTE | 2024-01-28 19:36 | Electrocardiogram Report ---
Test Reason : Blood Pressure : / mmHG Vent. Rate : 087 BPM Atrial Rate : 087 BPM P-R Int : 192 ms QRS Dur : 080 ms QT Int : 378 ms P-R-T Axes : -03 -17 -02 degrees QTc Int : 454 ms Normal sinus rhythm Minimal voltage criteria for LVH, may be normal variant Borderline ECG When compared with ECG of 27-JAN-2024 18:02, (unconfirmed) Nonspecific T wave abnormality, worse in Inferior leads Confirmed by Álvaro Hayward ([id number]) on 01/28/2024 7:35:55 PM Referred By: REFERRED SELF Confirmed By:Álvaro Hayward
[2024-01-28] MEDS ORDERED: QUEtiapine FUMARATE 100 MG TABLET PO SCH (21:00)
[2024-01-28] MEDS: QUEtiapine FUMARATE 25 MG TABLET PO SCH (22:24)
[2024-01-28] MEDS: SERTRALINE HCL 50 MG TABLET PO SCH (22:27)
--- NOTE | 2024-01-29 16:18 | Hospitalist Progress Note ---
Date of Service January 29, 2024 Assessment & Plan (1) Severe alcohol use disorder: Plan: 68-year-old woman with severe alcohol use disorder admitted with slurred speech and unsteady gait worse than baseline underwent stroke evaluation at time of admission which was negative for any acute findings mild hyponatremia with Na 131 on admission has resolved alcoholic hallucinosis resolved symptoms appear to have been alcohol related and resolved -continue thiamine supplementation, B1 level pending - did not have symptoms of alcohol withdrawal this admission -being evaluated for placement at inpatient alcohol rehab program. discussed with care coordination, there is rehab near [place] to which she is agreeable (2) Major depression: Plan: Longstanding history of depression at least partially responsive to sertraline complicated by AUD Endorsing ongoing SI with recent intent "to drink myself to " and had recently comtemplated mixing pills and alcohol for this purpose approximately 2 weeks ago Associated symptoms of insomnia, anorexia - consulted psychiatrist, no active suicidal ideation, recommended increasing sertraline to 150 mg. Obtained updated EKG junctional rhythm has resolved QTc is around 450 - increased sertraline, tolerating well so far, continue at bedtime Seroquel and hydroxyzine - outpatient mental health follow-upneeds to establish locally -B12 and TSH recently normal Plan hypertensionstable continue lisinopril completed 3-day course of valacyclovir for HSV flare, resolved ambulating frequently and low risk for DVT, not on chemoprophylaxis Admission and Anticipated Discharge Date Admission Date: January 23, 2024 Subjective continues to do well while here in the hospital, no alcohol withdrawal symptoms, no side effects from increasing sertraline last night Physical Exam Physical Exam: PHYSICAL EXAMINATION Last 24h vital signs reviewed, see documentation in flowsheet General: comfortable appearing, no distress, sitting in bed awake early in the a.m. HEENT: Normocephalic, atraumatic, pupils round and equal, sclerae anicteric, no conjunctival injection, moist mucus membranes Lungs: Normal respiratory effort. Heart: deferred Abdomen: Soft, nondistended. Extremities: Warm, dry, well-perfused. No extremity edema. Neuro: Alert and oriented x 4, face symmetric, moves 4 extremities well, not tremulous, skin warm and dry Psych: Normal affect and behavior, depressed mood Results & Data Results & Data Vital Signs (Past 12 Hours) Vital Signs Temp Pulse Resp BP BP Pulse Ox O2 Del Method 01/29/24 15:00 36.8 C 77 16 100/66 96 Room Air 01/29/24 07:31 36.8 C 84 17 104/67 96 Room Air PG Care Time/CCT Total # of Minutes Spent Total Time Spent with Patient: Total time spent is greater than 50% in coordination of care (as documented) at patient's floor/unit and/or counseling patient: Coding Level of Care Code 93211 SUB INP/OBS CARE 07/31MIN Diagnoses Severe alcohol use disorder F10.20 Major depression F32.9
--- NOTE | 2024-01-30 18:22 | Hospitalist Progress Note ---
Date of Service January 30, 2024 Assessment & Plan (1) Severe alcohol use disorder: Plan: 68-year-old woman with severe alcohol use disorder admitted with slurred speech and unsteady gait worse than baseline underwent stroke evaluation at time of admission which was negative for any acute findings symptoms appear to have been alcohol related and resolved mild hyponatremia with Na 131 on admission has resolved alcoholic hallucinosis resolved -continue thiamine supplementation, B1 level pending -continue oral naltrexone -did not have symptoms of alcohol withdrawal this admission -evaluated for placement at inpatient alcohol rehab program, has been challenging due to lack of many local facilities and insurance issues. Jayjay is concerned that she will relapse quickly if not in structured rehab (2) Major depression: Plan: Longstanding history of depression at least partially responsive to sertraline complicated by AUD Endorsed SI with recent intent "to drink myself to " and had recently contemplated mixing pills and alcohol for this purpose approximately 2 weeks ago Associated symptoms of insomnia, anorexia - consulted psychiatrist, no active suicidal ideation, recommended increasing sertraline to 150 mg. Obtained updated EKG junctional rhythm has resolved QTc is around 450 - increased sertraline, tolerating well so far, continue at bedtime Seroquel and hydroxyzine - adjusted these to her usual home doses - outpatient mental health follow-upneeds to establish locally -B12 and TSH recently normal Plan anemia - chronic, Hg lower than this spring, no recent iron panels but was deficient in 2022. Will check ferritin, serum iron. Platelets normal. Very mild lymphopenia. 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 Admission and Anticipated Discharge Date Admission Date: January 23, 2024 Subjective Jayjay has continued to do okay without any side effects from increased sertraline Physical Exam Physical Exam: PHYSICAL EXAMINATION Last 24h vital signs reviewed, see documentation in flowsheet General: awake and alert reading a book HEENT: Normocephalic, atraumatic, pupils round and equal, sclerae anicteric, no conjunctival injection, moist mucus membranes Lungs: Normal respiratory effort. Heart: deferred Abdomen: Soft, nondistended. Extremities: Warm, dry, well-perfused. No extremity edema. Neuro: Alert and oriented x 4, face symmetric, moves 4 extremities well, no tremor Psych: Normal affect and behavior, depressed mood Results & Data Results & Data Vital Signs (Past 12 Hours) Vital Signs Temp Pulse Resp BP Pulse Ox O2 Del Method 01/30/24 15:27 36.7 C 78 18 115/68 97 Room Air PG Care Time/CCT Total # of Minutes Spent Total Time Spent with Patient: Total time spent is greater than 50% in coordination of care (as documented) at patient's floor/unit and/or counseling patient: Coding Level of Care Code 50182 SUB INP/OBS CARE 2/35MIN Diagnoses Severe alcohol use disorder F10.20 Major depression F32.9
[2024-01-30] MEDS: hydrOXYzine HCl 25 MG TAB PO SCH (20:00)
[2024-01-30] MEDS: QUEtiapine FUMARATE 100 MG TABLET PO SCH (20:00)
[2024-01-31 06:56] LABS: Hematocrit (blood only) 24.7 % (37.0-47.0); Hemoglobin 8.2 g/dl (12.0-16.0); Mean Corpuscular Hemoglobin 30.7 pg (25.0-34.0); Mean Corpuscular Hgb Conc 33.2 g/dL (32.0-36.0); Mean Corpuscular Volume 92.5 fL (80.0-100.0); Mean Platelet Volume 8.7 fL (9.4-12.4); Platelet Count 358 K/uL (130-400); RDW Coefficient of Variation 17.3 % (11.5-14.5); RDW Standard Deviation 58.7 fL (36.4-46.3); Red Blood Count 2.67 M/uL (4.20-5.40); White Blood Count 4.13 K/ul (4.8-10.8)
[2024-01-31 07:31] LABS: Albumin Globulin Ratio 1.5 (0.9-2); Bilirubin,Total 0.2 mg/dl (0.2-1.0); Calcium 8.2 mg/dl (8.6-10.3); Creatinine Clr Calc Pharmacy 54.7 ml/min; Est GFR (African American) 81.6 ml/min; Est GFR (Non-African American) 70.4 ml/min; Potassium 3.9 mmol/L (3.5-5.1)
[2024-01-31 07:50] LABS: Ferritin 44.4 ng/ml (8-388)
--- NOTE | 2024-01-31 14:26 | Hospitalist Progress Note ---
Date of Service January 31, 2024 Assessment & Plan (1) Severe alcohol use disorder: Plan: 68-year-old woman with severe alcohol use disorder admitted with slurred speech and unsteady gait worse than baseline underwent stroke evaluation at time of admission which was negative for any acute findings (head/neck CTA and brain MRI) symptoms appear to have been alcohol related and resolved mild hyponatremia with Na 131 on admission has resolved alcoholic hallucinosis resolved -continue thiamine supplementation, B1 level pending -continue oral naltrexone - discussed option of monthly injectable naltrexone, since compliance with oral has been a problem -did not have symptoms of alcohol withdrawal this admission -evaluated for placement at inpatient alcohol rehab program, has been challenging due to lack of many local facilities and insurance issues. Jayjay is concerned that she will relapse quickly if not in structured rehab (2) Major depression: Plan: Longstanding history of depression at least partially responsive to sertraline complicated by AUD Endorsed SI with recent intent "to drink myself to " and had recently contemplated mixing pills and alcohol for this purpose approximately 2 weeks ago Associated symptoms of insomnia, anorexia - consulted psychiatrist, no active suicidal ideation, recommended increasing sertraline to 150 mg. Obtained updated EKG junctional rhythm has resolved QTc is around 450 - increased sertraline, tolerating well so far, continue at bedtime Seroquel and hydroxyzine - outpatient mental health follow-upneeds to establish locally -B12 and TSH recently normal Plan dysphagia, anemia anemia - chronic, Hg lower than this spring, no recent iron panels but was deficient in 2022. Will check ferritin, serum iron. Platelets normal. Very mild lymphopenia. -AM CBC and iron panel reviewed serum iron 38, ferritin 45 these are in low normal range -last EGD Dr. Mayes 01/31/23 - esophageal ulcer, mild stenosis at GE junction, gastric bypass -barium swallow 03/06/23 - moderate esophageal dysmotility, mild esoph dilatation, gastric bypass, moderate hiatal hernia -continue PPI -check copper level malnutrition - albumin 3 -added BOOST, discussed adequate protein intake. 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 I met with Jayjay and her daughter Carmyn midday today. Discussed most recent referral. They would prefer to wait and see if this one pans out. In addition the elevator in her apartment is broken this weekend and she's unable to negotiate stairs. We discussed working ahead on long chain beamer plan for outpatient care, including following with one of the local alcohol rehab clinics and mental health services, she is also interested in Vivitrol injection because its too easy for her to stop taking the oral naltrexone. Admission and Anticipated Discharge Date Admission Date: January 23, 2024 Subjective Feeling ok. At home was eating very little and drinking up to a fifth a day. Elevator in her apartment building is broken this weekend. Feels food/pills getting stuck in her upper throat and regurgitates them at times. Hx hiatal hernia, esophageal ulcer, gastric bypass. Physical Exam 2 Physical Exam: PHYSICAL EXAMINATION Last 24h vital signs reviewed, see documentation in flowsheet General: awake and alert, eating lunch HEENT: Normocephalic, atraumatic, pupils round and equal, sclerae anicteric, no conjunctival injection, moist mucus membranes Lungs: Normal respiratory effort. Heart: deferred Abdomen: Soft, nondistended. Extremities: Warm, dry, well-perfused. No extremity edema. Neuro: Alert and oriented x 4, face symmetric, moves 4 extremities well, no tremor Psych: Normal affect and behavior, depressed mood Results & Data Results & Data Vital Signs (Past 12 Hours) Vital Signs Temp Pulse Resp BP Pulse Ox O2 Del Method 01/31/24 07:55 36.6 C 74 18 115/75 97 Room Air Laboratory Results 01/31/24 06:13 01/31/24 06:13 PG Care Time/CCT Total # of Minutes Spent Total Time Spent with Patient: Total time spent is greater than 50% in coordination of care (as documented) at patient's floor/unit and/or counseling patient: Coding Level of Care Code 52699 SUB INP/OBS CARE 2/35MIN Diagnoses Severe alcohol use disorder F10.20 Major depression F32.9
--- NOTE | 2024-02-01 16:16 | Hospitalist Progress Note ---
Date of Service February 01, 2024 Assessment & Plan (1) Severe alcohol use disorder: Plan: 68-year-old woman with severe alcohol use disorder admitted with slurred speech and unsteady gait worse than baseline underwent stroke evaluation at time of admission which was negative for any acute findings (head/neck CTA and brain MRI) symptoms appear to have been alcohol related and resolved mild hyponatremia with Na 131 on admission has resolved alcoholic hallucinosis resolved -continue thiamine supplementation, B1 level pending -continue oral naltrexone - discussed option of monthly injectable naltrexone, since compliance with oral has been a problem - she thinks this would be a good option -did not have symptoms of alcohol withdrawal this admission, though was tachycardic first 48h in the hospital -evaluated for placement at inpatient alcohol rehab program, has been challenging due to lack of many local facilities and insurance issues. Jayjay is concerned that she will relapse quickly if not in structured rehab (2) Major depression: Plan: Longstanding history of depression at least partially responsive to sertraline complicated by AUD Endorsed SI with recent intent "to drink myself to " and had recently contemplated mixing pills and alcohol for this purpose approximately 2 weeks ago Associated symptoms of insomnia, anorexia - consulted psychiatrist, no active suicidal ideation, recommended increasing sertraline to 150 mg. Obtained updated EKG junctional rhythm has resolved QTc is around 450 - increased sertraline, tolerating well so far, continue at bedtime Seroquel and hydroxyzine - outpatient mental health follow-upneeds to establish locally -B12 and TSH recently normal Plan dysphagia, anemia anemia - chronic, Hg lower than this spring, no recent iron panels but was deficient in 2022. Platelets normal. Very mild lymphopenia likely nutritional or alcohol related. -AM CBC and iron panel reviewed serum iron 38, ferritin 45 these are in low normal range -last EGD Dr. Mayes 01/31/23 - esophageal ulcer, mild stenosis at GE junction, gastric bypass -barium swallow 03/06/23 - moderate esophageal dysmotility, mild esoph dilatation, gastric bypass, moderate hiatal hernia -continue PPI -check copper level malnutrition - albumin 3 -added BOOST, discussed adequate protein intake can get low vitamins ADEK and B's, thiamine, iron, copper, selenium, zinc, niacin with gastric bypass consider Vitamin A deficiency since she has poor night vision - vitamin which has iron and folate - she will look into a "gummy" that is easier to swallow hypertensionstable well controlled continue lisinopril completed 3-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 I met with Jayjay and her daughter Camryn 01/30. Discussed most recent referral. They would prefer to wait and see if this one pans out. In addition the elevator in her apartment is broken this weekend and she's unable to negotiate stairs. We discussed working ahead on exterminator helper plan for outpatient care, including following with one of the local alcohol rehab clinics and mental health services, she is also interested in Vivitrol injection because its too easy for her to stop taking the oral naltrexone. Admission and Anticipated Discharge Date Admission Date: January 23, 2024 Subjective Still doing ok. RD brought a boost. [place] is the best thing on the menu. Willing to take vitamins but hesitant about too many pills because of her swallowing difficulty She does have poor vision at night. No mouth sores / chelitis. +anemia, GI motility issues, mood disorder Physical Exam Physical Exam: PHYSICAL EXAMINATION Last 24h vital signs reviewed, see documentation in flowsheet General: awake and alert, eating lunch again exam unchanged 01/31 HEENT: Normocephalic, atraumatic, pupils round and equal, sclerae anicteric, no conjunctival injection, moist mucus membranes Lungs: Normal respiratory effort. Heart: deferred Abdomen: Soft, nondistended. Extremities: Warm, dry, well-perfused. No extremity edema. Neuro: Alert and oriented x 4, face symmetric, moves 4 extremities well, no tremor Psych: Normal affect and behavior, depressed mood Results & Data Results & Data Vital Signs (Past 12 Hours) Vital Signs Temp Pulse Resp BP Pulse Ox O2 Del Method 02/01/24 15:42 36.8 C 72 18 106/71 96 Room Air 02/01/24 08:54 36.4 C L 82 18 99/60 L 96 Room Air PG Care Time/CCT Total # of Minutes Spent Total Time Spent with Patient: Total time spent is greater than 50% in coordination of care (as documented) at patient's floor/unit and/or counseling patient: Coding Level of Care Code 38494 SUB INP/OBS CARE 25MIN Diagnoses Severe alcohol use disorder F10.20 Major depression F32.9
--- NOTE | 2024-02-02 14:46 | Hospitalist Progress Note ---
Date of Service February 02, 2024 Assessment & Plan (1) Severe alcohol use disorder: Plan: 68-year-old woman with severe alcohol use disorder admitted with slurred speech and unsteady gait worse than baseline underwent stroke evaluation at time of admission which was negative for any acute findings (head/neck CTA and brain MRI) symptoms appear to have been alcohol related and resolved mild hyponatremia with Na 131 on admission has resolved alcoholic hallucinosis resolved -continue thiamine supplementation, B1 level still pending -continue oral naltrexone - discussed option of monthly injectable naltrexone, since compliance with oral has been a problem - she thinks this would be a good option - will need a prescription for more oral naltrexone on discharge until Vivitrol injection can be set up as outpatient -did not have symptoms of alcohol withdrawal this admission, though was tachycardic first 48h in the hospital so probably had some component of withdrawal -evaluated for placement at inpatient alcohol rehab program, has been challenging due to lack of many local facilities and insurance issues. Jayjay is concerned that she will relapse quickly if not in structured rehab. if current referral does not holden out she will likely have to return home we have discussed outpatient rehab resources in the local area (2) Major depression: Plan: Longstanding history of depression at least partially responsive to sertraline complicated by AUD Endorsed SI with recent intent "to drink myself to " and had recently contemplated mixing pills and alcohol for this purpose approximately 2 weeks ago Associated symptoms of insomnia, anorexia - consulted psychiatrist, no active suicidal ideation, recommended increasing sertraline to 150 mg. Obtained updated EKG junctional rhythm has resolved QTc is around 450 - increased sertraline, tolerating well so far, continue at bedtime Seroquel and hydroxyzine - outpatient mental health follow-upneeds to establish locally -B12 and TSH recently normal Plan dysphagia, anemia anemia - chronic, Hg lower than this spring, no recent iron panels but was deficient in 2022. Platelets normal. Very mild lymphopenia likely nutritional or alcohol related. -AM CBC and iron panel reviewed serum iron 38, ferritin 45 these are in low normal range -last EGD Dr. Mayes 01/31/23 - esophageal ulcer, mild stenosis at GE junction, gastric bypass -barium swallow 03/06/23 - moderate esophageal dysmotility, mild esoph dilatation, gastric bypass, moderate hiatal hernia -continue PPI -check copper level - pending malnutrition - albumin 3 -added BOOST, discussed adequate protein intake can get low vitamins ADEK and B's, thiamine, iron, copper, selenium, zinc, niacin with gastric bypass consider Vitamin A deficiency since she has poor night vision - vitamin which has iron and folate - she will look into a "gummy" that is easier to swallow hypertensionstable well controlled continue lisinopril completed 3-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 I met with Jayjay and her daughter Camryn 01/30. We discussed working ahead on rn long term care plan for outpatient care, including following with one of the local alcohol rehab clinics and mental health services, she is also interested in Vivitrol injection because its too easy for her to stop taking the oral naltrexone. Admission and Anticipated Discharge Date Admission Date: January 23, 2024 Subjective doing okay physically has been walking laps in the hallway using her walker she is not sure if the elevator at her apartment building is still out of service she has been eating well while in the hospital Physical Exam Physical Exam: PHYSICAL EXAMINATION Last 24h vital signs reviewed, see documentation in flowsheet General: awake and alert, eating lunch again, earlier today I saw her steadily ambulating with walker in hallway exam unchanged 02/01 HEENT: Normocephalic, atraumatic, pupils round and equal, sclerae anicteric, no conjunctival injection, moist mucus membranes Lungs: Normal respiratory effort. Heart: deferred Abdomen: Soft, nondistended. Extremities: Warm, dry, well-perfused. No extremity edema. Neuro: Alert and oriented x 4, face symmetric, moves 4 extremities well, no tremor Psych: Normal affect and behavior, makes good eye contact, good sense of humor, depressed mood Results & Data Results & Data Vital Signs (Past 12 Hours) Vital Signs Temp Pulse Resp BP Pulse Ox O2 Del Method 02/02/24 06:56 36.3 C L 68 16 110/73 97 Room Air PG Care Time/CCT Total # of Minutes Spent Total Time Spent with Patient: Total time spent is greater than 50% in coordination of care (as documented) at patient's floor/unit and/or counseling patient: Coding Level of Care Code 95792 SUB INP/OBS CARE 07/31MIN Diagnoses Severe alcohol use disorder F10.20 Major depression F32.9
[2024-02-03 09:55] LABS: Hematocrit (blood only) 24.3 % (37.0-47.0); Hemoglobin 7.8 g/dl (12.0-16.0); Mean Corpuscular Hemoglobin 30.2 pg (25.0-34.0); Mean Corpuscular Hgb Conc 32.1 g/dL (32.0-36.0); Mean Corpuscular Volume 94.2 fL (80.0-100.0); Mean Platelet Volume 8.7 fL (9.4-12.4); Platelet Count 353 K/uL (130-400); RDW Coefficient of Variation 17.6 % (11.5-14.5); RDW Standard Deviation 60.5 fL (36.4-46.3); Red Blood Count 2.58 M/uL (4.20-5.40); White Blood Count 4.53 K/ul (4.8-10.8)
[2024-02-03 10:11] LABS: BUN Creatinine Ratio 22.3 (10-20); Calcium 8.1 mg/dl (8.6-10.3); Creatinine Clr Calc Pharmacy 49.4 ml/min; Est GFR (African American) 64.7 ml/min; Est GFR (Non-African American) 55.8 ml/min; Potassium 3.8 mmol/L (3.5-5.1)
[2024-02-03] MEDS ORDERED: IRON SUCROSE 300 MG in SODIUM CHLORIDE 0.9% 250 ML IV ONE (11:00)
--- NOTE | 2024-02-03 16:40 | Hospitalist Progress Note ---
Date of Service February 03, 2024 Assessment & Plan (1) Severe alcohol use disorder: Plan: may have had mild etoh withdrawal early in the stay - now resolved patient committed to abstinence wishing to go to inpatient etoh rehab - has been to such in the past case management helping with dispo [facility] electroplating sales representative also met with the patient today to assist with placement B1 level returned artificially high likely due to supplementation prior to the blood draw will cont the thiamine for now cont folic acid cont Naltrexone 50mg daily (2) Major depression: Plan: Longstanding history of depression Endorsed SI with recent intent "to drink myself to " and had recently contemplated mixing pills and alcohol for this purpose approximately 2 weeks ago Associated symptoms of insomnia, anorexia Appreciate psychiatry consult --> no active suicidal ideation, recommended increasing sertraline to 150 mg. Most recent EKG with normal QTc. Continue Seroquel HS Continue hydroxyzine HS vitamin B12 and TSH recently normal Etoh abstinence will help her mood disorder tremendously (3) Iron deficiency anemia: Plan: ferritin low 40s this is in setting of prior gastric bypass we discussed she may not absorb PO Fe supplementation that well and thus I recommended IV venofer - she is agreeable will give 300mg IV x 1 today, repeat infusion tomorrow recheck cbc am for stability stool is heme NEGATIVE (4) History of Tayler-en-Y gastric bypass: Plan: cont PPI BID copper level pending (5) Aortic stenosis: Plan: mild on echo 2022 will update her echo tomorrow Plan dysphagia - last EGD by Dr. Mayes 01/31/23 - esophageal ulcer, mild stenosis at GE junction, gastric bypass barium swallow 03/06/23 - moderate esophageal dysmotility, mild esoph dilatation, gastric bypass, moderate hiatal hernia continue PPI malnutrition - albumin 3 -added BOOST; cont MVI, thiamine, etc hypertension well controlled; continue lisinopril completed 3-day course of valacyclovir for HSV flare; she reports getting another flare; can repeat the valtrex course DVT proph - low risk; she is ambulating well dispo - etoh rehab, location uncertain Admission and Anticipated Discharge Date Admission Date: January 23, 2024 Subjective no new issues or complaints feels well she met with a county electroplating sales representative today who is going to help place her in etoh rehab still hoping to go to rehab post-d/c we had lengthy discussion about her anemia and the low Fe -- agreeable to IV venofer h/o Tayler-en-Y gastric bypass years ago Review of Systems Review of Systems: CV - no chest pain pulm - no dyspnea or AKBAR GI - no abd pain or N/V Physical Exam Physical Exam: gen - NAD, looks well skin - generalized pallor mouth - MMM heart - 2/6 holosystolic murmur RUSB, RRR, s1 s2 lungs - CTA b/l abd - soft NT ND BS+; no HSM ext - no edema, pulses 2+ b/l neuro - no signs of etoh withdrawal Results & Data Results & Data Vital Signs (Past 12 Hours) Vital Signs Temp Pulse Resp BP Pulse Ox O2 Del Method 02/03/24 14:59 36.6 C 82 16 101/65 95 Room Air 02/03/24 07:20 36.7 C 72 16 116/77 97 Room Air Laboratory Results Laboratory Results 01/28/24 02/03/24 02/03/24 06:32 09:30 13:00 WBC 4.53 L RBC 2.58 L Hgb 7.8 L Hct 24.3 L MCV 94.2 MCH 30.2 MCHC 32.1 RDW Std Deviation 60.5 H RDW Coeff of Cate 17.6 H Plt Count 353 MPV 8.7 L Sodium 140 Potassium 3.8 Chloride 111 H Carbon Dioxide 21 Anion Gap 8 BUN 23 Creatinine 1.03 Est Cr Clr Drug Dosing 49.4 Est GFR ( Amer) 64.7 Est GFR (Non-Af Amer) 55.8 BUN/Creatinine Ratio 22.3 H Glucose 93 Calcium 8.1 L Vitamin B1 136 H Stool Occult Bld Scrn Negative PG Care Time/CCT Total # of Minutes Spent Total Time Spent with Patient: Total time spent is greater than 50% in coordination of care (as documented) at patient's floor/unit and/or counseling patient: Coding Level of Care Code 90436 SUB INP/OBS CARE 2/35MIN Diagnoses Severe alcohol use disorder F10.20 Major depression F32.9 Iron deficiency anemia D50.9 History of Tayler-en-Y gastric bypass Z98.84 Aortic stenosis I35.0
[2024-02-03] MEDS: IRON SUCROSE 300 MG in SODIUM CHLORIDE 0.9% 250 ML IV ONE (17:45)
[2024-02-03] MEDS: valACYclovir HCL 500 MG TABLET PO SCH (23:04)
[2024-02-04] MEDS: IRON SUCROSE 300 MG in SODIUM CHLORIDE 0.9% 250 ML IV ONE (08:08)
[2024-02-04 08:36] LABS: Hematocrit (blood only) 27.1 % (37.0-47.0); Hemoglobin 8.6 g/dl (12.0-16.0); Mean Corpuscular Hemoglobin 30.2 pg (25.0-34.0); Mean Corpuscular Hgb Conc 31.7 g/dL (32.0-36.0); Mean Corpuscular Volume 95.1 fL (80.0-100.0); Mean Platelet Volume 8.9 fL (9.4-12.4); Platelet Count 388 K/uL (130-400); RDW Coefficient of Variation 17.8 % (11.5-14.5); RDW Standard Deviation 61.5 fL (36.4-46.3); Red Blood Count 2.85 M/uL (4.20-5.40); White Blood Count 4.66 K/ul (4.8-10.8)
[2024-02-04] MEDS: MULTI VIT W/MINERALS LIQUID 15 ML UDC PO SCH (10:37)
--- NOTE | 2024-02-04 21:46 | Hospitalist Progress Note ---
Date of Service February 04, 2024 Assessment & Plan (1) Severe alcohol use disorder: Plan: may have had mild etoh withdrawal early in the stay - now resolved patient committed to abstinence wishing to go to inpatient etoh rehab - has been to such in the past case management helping with dispo a [facility] dermatology sales representative also met with the patient on 02/02 to assist with placement B1 level returned artificially high likely due to supplementation prior to the blood draw will cont the thiamine for now cont folic acid cont Naltrexone 50mg daily (2) Major depression: Plan: Longstanding history of depression Endorsed SI with recent intent "to drink myself to " and had recently contemplated mixing pills and alcohol for this purpose approximately 2 weeks ago Associated symptoms of insomnia, anorexia Appreciate psychiatry consult --> no active suicidal ideation, recommended increasing sertraline to 150 mg. Most recent EKG with normal QTc. Continue Seroquel HS Continue hydroxyzine HS vitamin B12 and TSH recently normal Etoh abstinence will help her mood disorder tremendously (3) Iron deficiency anemia: Plan: ferritin low 40s this is in setting of prior gastric bypass s/p 300mg of IV venofer 02/02 repeat 300mg again today, 02/03 serum copper level returned normal cbc today stable stool is heme NEGATIVE (4) History of Atyler-en-Y gastric bypass: Plan: cont PPI BID copper level returned normal (5) Aortic stenosis: Plan: mild on echo 2022 echo today - again mild, EF wnl repeat echo 1-2 years Plan dysphagia - last EGD by Dr. Mayes 01/31/23 - esophageal ulcer, mild stenosis at GE junction, gastric bypass barium swallow 03/06/23 - moderate esophageal dysmotility, mild esoph dilatation, gastric bypass, moderate hiatal hernia continue PPI malnutrition - albumin 3 -added BOOST; cont MVI, thiamine, etc hypertension well controlled; continue lisinopril completed 3-day course of valacyclovir for HSV flare; she reports getting another flare; valtrex course restarted last pm, 02/02 DVT proph - low risk; she is ambulating well dispo - etoh rehab, location uncertain - await input from social work Admission and Anticipated Discharge Date Admission Date: January 23, 2024 Subjective no events overnight feels very good no complaints completed dose #2 of venofer today w/o incident Review of Systems Review of Systems: pulm - no resp complaints GI - no N/V/pain Physical Exam Physical Exam: gen - NAD, looks well, in bed watching TV mouth - MMM heart - 2/6 holosystolic murmur RUSB, RRR, s1 s2 lungs - CTA b/l abd - soft NT ND BS+; no HSM ext - no edema, pulses 2+ b/l psych - awake, alert, oriented x 3 Results & Data Results & Data Vital Signs (Past 12 Hours) Vital Signs Temp Pulse Resp BP BP Pulse Ox O2 Del Method 02/04/24 20:02 36.5 C 79 16 116/66 96 Room Air 02/04/24 15:07 36.6 C 77 16 120/72 93 Room Air Laboratory Results Laboratory Results - last 24 hr 02/02/24 02/04/24 08:34 07:49 WBC 4.66 L RBC 2.85 L Hgb 8.6 L Hct 27.1 L MCV 95.1 MCH 30.2 MCHC 31.7 L RDW Std Deviation 61.5 H RDW Coeff of Cate 17.8 H Plt Count 388 MPV 8.9 L Serum Copper 79 PG Care Time/CCT Total # of Minutes Spent Total Time Spent with Patient: Total time spent is greater than 50% in coordination of care (as documented) at patient's floor/unit and/or counseling patient: Coding Level of Care Code 57700 SUB INP/OBS CARE 1MIN Diagnoses Severe alcohol use disorder F10.20 Major depression F32.9 Iron deficiency anemia D50.9 History of Tayler-en-Y gastric bypass Z98.84 Aortic stenosis I35.0
--- NOTE | 2024-02-04 22:09 | XCELERA ---
[id number] \\[id number]
--- NOTE | 2024-02-05 19:38 | Hospitalist Progress Note ---
Date of Service February 05, 2024 Assessment & Plan (1) Severe alcohol use disorder: Plan: may have had mild etoh withdrawal early in the stay - resolved patient committed to abstinence wishing to go to inpatient etoh rehab - has been to such in the past case management helping with dispo a [facility] quality control representative also met with the patient on 02/02 to assist with placement B1 level returned artificially high likely due to supplementation prior to the blood draw will cont the thiamine for now cont folic acid cont Naltrexone 50mg daily (2) Major depression: Plan: Longstanding history of depression Endorsed SI with recent intent "to drink myself to " and had recently contemplated mixing pills and alcohol for this purpose approximately 2 weeks ago Associated symptoms of insomnia, anorexia Appreciate psychiatry consult --> no active suicidal ideation, recommended increasing sertraline to 150 mg. Most recent EKG with normal QTc. Continue Seroquel HS Continue hydroxyzine HS vitamin B12 and TSH recently normal Etoh abstinence will help her mood disorder tremendously (3) Iron deficiency anemia: Plan: ferritin low 40s this is in setting of prior gastric bypass s/p 300mg of IV venofer 02/02 s/p 300mg again 02/03 serum copper level returned normal most recent h/h stable stool is heme NEGATIVE (4) History of Tayler-en-Y gastric bypass: Plan: cont PPI BID copper level returned normal (5) Aortic stenosis: Plan: mild on echo 2022 echo today - again mild, EF wnl repeat echo 1-2 years Plan dysphagia - last EGD by Dr. Mayes 01/31/23 - esophageal ulcer, mild stenosis at GE junction, gastric bypass barium swallow 03/06/23 - moderate esophageal dysmotility, mild esoph dilatation, gastric bypass, moderate hiatal hernia continue PPI malnutrition - albumin 3 -added BOOST; cont MVI, thiamine, etc -appetite very good now hypertension well controlled; continue lisinopril completed 3-day course of valacyclovir for HSV flare; she reports getting another flare; valtrex course restarted last pm, 02/02 DVT proph - low risk; she is ambulating well dispo - etoh rehab, location uncertain - await input from social work Admission and Anticipated Discharge Date Admission Date: January 23, 2024 Subjective no events no new complaints feels well eating excellent anxious to go to rehab Review of Systems Review of Systems: cv - no chest pain pulm - no dyspnea GI - no abd pain Physical Exam Physical Exam: gen - NAD, looks good mouth - MMM heart - 2/6 holosystolic murmur RUSB, RRR, s1 s2 lungs - CTA b/l ext - no edema, pulses 2+ b/l psych - awake, alert, oriented x 3 Results & Data Results & Data Vital Signs (Past 12 Hours) Vital Signs Temp Pulse Resp BP Pulse Ox O2 Del Method 02/05/24 15:09 36.8 C 75 16 113/75 97 Room Air PG Care Time/CCT Total # of Minutes Spent Total Time Spent with Patient: Total time spent is greater than 50% in coordination of care (as documented) at patient's floor/unit and/or counseling patient: Coding Level of Care Code 29851 SUB INP/OBS CARE 07/31MIN Diagnoses Severe alcohol use disorder F10.20 Major depression F32.9 Iron deficiency anemia D50.9 History of Tayler-en-Y gastric bypass Z98.84 Aortic stenosis I35.0
--- NOTE | 2024-02-07 09:53 | Hospitalist Progress Note ---
Date of Service February 06, 2024 Assessment & Plan (1) Severe alcohol use disorder: Plan: may have had mild etoh withdrawal early in the stay - resolved patient committed to abstinence wishing to go to inpatient etoh rehab - has been to such in the past a rehab center in [place] has accepted her and can do so on Friday, 02/08 B1 level returned artificially high likely due to supplementation prior to the blood draw will cont the thiamine for now cont folic acid cont Naltrexone 50mg daily (2) Major depression: Plan: Longstanding history of depression Endorsed SI with recent intent "to drink myself to " and had recently contemplated mixing pills and alcohol for this purpose approximately 2 weeks ago Associated symptoms of insomnia, anorexia Appreciate psychiatry consult --> no active suicidal ideation, recommended increasing sertraline to 150 mg. Most recent EKG with normal QTc. Continue Seroquel HS Continue hydroxyzine HS vitamin B12 and TSH recently normal Etoh abstinence will help her mood disorder tremendously (3) Iron deficiency anemia: Plan: ferritin low 40s this is in setting of prior gastric bypass s/p 300mg of IV venofer 02/02 s/p 300mg again 02/03 serum copper level returned normal most recent h/h stable stool is heme NEGATIVE recheck cbc tomorrow for stability (4) History of Tayler-en-Y gastric bypass: Plan: cont PPI BID copper level returned normal (5) Aortic stenosis: Plan: mild on echo 2022 echo today - again mild, EF wnl repeat echo 1-2 years Plan dysphagia - last EGD by Dr. Mayes 01/31/23 - esophageal ulcer, mild stenosis at GE junction, gastric bypass barium swallow 03/06/23 - moderate esophageal dysmotility, mild esoph dilatation, gastric bypass, moderate hiatal hernia continue PPI no issues w/ swallowing while here malnutrition - albumin 3 -added BOOST; cont MVI, thiamine, etc -appetite very good now hypertension well controlled; continue lisinopril completed 3-day course of valacyclovir for HSV flare; she reports getting another flare; valtrex course restarted last pm, 02/02 DVT proph - low risk; she is ambulating well dispo - etoh rehab on Friday, 02/08 Admission and Anticipated Discharge Date Admission Date: January 23, 2024 Subjective no events eating well ambulating w/o difficulty +stools we received word that a etoh rehab facility in [place] can take the patient on Friday, 02/08 she is pleased with getting this information still interested in going asks if IV can be removed Review of Systems Review of Systems: cv - no cp pulm - no dyspnea GI - no abd pain or N/V Physical Exam Physical Exam: gen - NAD, looks great mouth - MMM heart - 2/6 holosystolic murmur RUSB, RRR, s1 s2 lungs - CTA b/l abd - soft NT ND BS+ ext - no edema, pulses 2+ b/l psych - awake, alert, oriented x 3 Results & Data Results & Data Vital Signs (Past 12 Hours) Vital Signs Temp Pulse Resp BP BP Pulse Ox O2 Del Method 02/06/24 15:00 36.9 C 64 17 130/83 96 Room Air PG Care Time/CCT Total # of Minutes Spent Total Time Spent with Patient: Total time spent is greater than 50% in coordination of care (as documented) at patient's floor/unit and/or counseling patient: Coding Level of Care Code 11822 SUB INP/OBS CARE 1/25MIN Diagnoses Severe alcohol use disorder F10.20 Major depression F32.9 Iron deficiency anemia D50.9 History of Tayler-en-Y gastric bypass Z98.84 Aortic stenosis I35.0
[2024-02-07 10:09] LABS: Hematocrit (blood only) 27.9 % (37.0-47.0); Hemoglobin 8.8 g/dl (12.0-16.0); Mean Corpuscular Hemoglobin 30.6 pg (25.0-34.0); Mean Corpuscular Hgb Conc 31.5 g/dL (32.0-36.0); Mean Corpuscular Volume 96.9 fL (80.0-100.0); Mean Platelet Volume 9.1 fL (9.4-12.4); Platelet Count 357 K/uL (130-400); RDW Coefficient of Variation 18.2 % (11.5-14.5); RDW Standard Deviation 64.2 fL (36.4-46.3); Red Blood Count 2.88 M/uL (4.20-5.40); White Blood Count 6.12 K/ul (4.8-10.8)
[2024-02-07 10:15] LABS: Potassium 4.3 mmol/L (3.5-5.1)
[2024-02-07 10:20] LABS: BUN Creatinine Ratio 32.9 (10-20); Creatinine Clr Calc Pharmacy 66.7 ml/min; Est GFR (African American) 93.4 ml/min; Est GFR (Non-African American) 80.6 ml/min
--- NOTE | 2024-02-07 16:07 | Hospitalist Progress Note ---
Date of Service February 07, 2024 Assessment & Plan (1) Severe alcohol use disorder: Plan: mild etoh withdrawal early in the hospitalization - resolved to transfer to etoh rehab center in [place] on Friday, 02/08 B1 level returned artificially high likely due to supplementation prior to the blood draw will cont the thiamine for now; plan 2-3 weeks more of B1 then stop cont folic acid cont Naltrexone 50mg daily (2) Major depression: Plan: Longstanding history of depression Endorsed SI with recent intent "to drink myself to " and had recently contemplated mixing pills and alcohol for this purpose approximately 2 weeks ago Associated symptoms of insomnia, anorexia Appreciate psychiatry consult --> no active suicidal ideation, recommended increasing sertraline to 150 mg. Most recent EKG with normal QTc. Continue Seroquel HS Continue hydroxyzine HS vitamin B12 and TSH recently normal Etoh abstinence will help her mood disorder tremendously (3) Iron deficiency anemia: Plan: ferritin low 40s this is in setting of prior gastric bypass s/p 300mg of IV venofer 02/02 s/p 300mg again 02/03 serum copper level returned normal CBC stable today (Hb 8.8) stool is heme NEGATIVE (4) History of Tayler-en-Y gastric bypass: Plan: cont PPI BID copper level returned normal (5) Aortic stenosis: Plan: mild on echo 2022 echo this admission - again mild, EF wnl repeat echo 1-2 years Plan dysphagia - last EGD by Dr. Mayes 01/31/23 - esophageal ulcer, mild stenosis at GE junction, gastric bypass barium swallow 03/06/23 - moderate esophageal dysmotility, mild esoph dilatation, gastric bypass, moderate hiatal hernia continue PPI no issues w/ swallowing while here malnutrition - albumin 3 -added BOOST; cont MVI, thiamine, etc -appetite very good now hypertension well controlled; continue lisinopril completed 3-day course of valacyclovir for HSV flare early in stay then got another flare - valtrex course restarted 02/02; continue until discharge DVT proph - low risk; she is ambulating in the hallways dispo - etoh rehab on Friday, 02/08 Admission and Anticipated Discharge Date Admission Date: January 23, 2024 Subjective no events overnight feels well no new complaints Review of Systems Review of Systems: gen - feels well, no fatigue cv - no chest pain pulm - no AKBAR GI - no abd pain, no N/V Physical Exam Physical Exam: gen - NAD, looks well, sitting in chair mouth - MMM heart - 2/6 holosystolic murmur RUSB, RRR, s1 s2 lungs - CTA b/l abd - soft NT ND BS+ ext - no edema, pulses 2+ b/l psych - awake, alert, oriented x 3 Results & Data Results & Data Vital Signs (Past 12 Hours) Vital Signs Temp Pulse Resp BP Pulse Ox O2 Del Method 02/07/24 14:57 37.0 C 68 16 114/77 97 Room Air 02/07/24 07:11 36.3 C L 80 19 105/66 97 Room Air Laboratory Results Laboratory Results - last 24 hr 02/07/24 05:52 WBC 6.12 RBC 2.88 L Hgb 8.8 L Hct 27.9 L MCV 96.9 MCH 30.6 MCHC 31.5 L RDW Std Deviation 64.2 H RDW Coeff of Cate 18.2 H Plt Count 357 MPV 9.1 L Sodium 139 Potassium 4.3 Chloride 111 H Carbon Dioxide 23 Anion Gap 5 BUN 25 H Creatinine 0.76 Est Cr Clr Drug Dosing 66.7 Est GFR ( Amer) 93.4 Est GFR (Non-Af Amer) 80.6 BUN/Creatinine Ratio 32.9 H Glucose 87 Calcium 9.0 PG Care Time/CCT Total # of Minutes Spent Total Time Spent with Patient: Total time spent is greater than 50% in coordination of care (as documented) at patient's floor/unit and/or counseling patient: Coding Level of Care Code 98871 SUB INP/OBS CARE 25MIN Diagnoses Severe alcohol use disorder F10.20 Major depression F32.9 Iron deficiency anemia D50.9 History of Tayler-en-Y gastric bypass Z98.84 Aortic stenosis I35.0
[2024-02-08] MEDS: ACYCLOVIR 5% OINT 15 GM TUBE EXT SCH (08:19)
[2024-02-08] MEDS: valACYclovir HCL 500 MG TABLET PO SCH (08:19)
--- NOTE | 2024-02-08 19:51 | Hospitalist Progress Note ---
Date of Service February 08, 2024 Assessment & Plan (1) Severe alcohol use disorder: Plan: mild etoh withdrawal early in the hospitalization - resolved to transfer to etoh rehab center in [place] on Friday, 02/08 B1 level returned artificially high likely due to supplementation prior to the blood draw will cont the thiamine for now; plan 2-3 weeks more of B1 then stop cont folic acid cont Naltrexone 50mg daily (2) Major depression: Plan: Longstanding history of depression Endorsed SI with recent intent "to drink myself to " and had recently contemplated mixing pills and alcohol for this purpose approximately 2 weeks ago Associated symptoms of insomnia, anorexia Appreciate psychiatry consult --> no active suicidal ideation, recommended increasing sertraline to 150 mg. Most recent EKG with normal QTc. Continue Seroquel HS Continue hydroxyzine HS vitamin B12 and TSH recently normal Etoh abstinence will help her mood disorder tremendously (3) Iron deficiency anemia: Plan: ferritin low 40s this is in setting of prior gastric bypass s/p 300mg of IV venofer 02/02 s/p 300mg again 02/03 serum copper level returned normal CBC stable on 02/07/24 - 8.8 baseline is about 9-10 stool is heme NEGATIVE recheck CBC in 1 week post-discharge along with fe studies; consider additional IV venofer if necessary (4) History of Tayler-en-Y gastric bypass: Plan: cont PPI BID copper level returned normal replaced low Fe (5) Aortic stenosis: Plan: mild on echo 2022 echo this admission - again mild, EF wnl repeat echo 1-2 years Plan dysphagia - last EGD by Dr. Mayes 01/31/23 - esophageal ulcer, mild stenosis at GE junction, gastric bypass barium swallow 03/06/23 - moderate esophageal dysmotility, mild esoph dilatation, gastric bypass, moderate hiatal hernia continue PPI no issues w/ swallowing while here malnutrition - albumin 3 -added BOOST; cont MVI, thiamine, etc -appetite excellent hypertension well controlled; continue lisinopril completed 3-day course of valacyclovir for HSV flare early in stay then got another flare - valtrex course restarted 02/02; would stay on once daily valtrex during her time in rehab for prophylaxis can use zovirax gel as well QID DVT proph - low risk; she is ambulating in the hallways dispo - etoh rehab on Friday, 02/08 Admission and Anticipated Discharge Date Admission Date: January 23, 2024 Subjective feels great no complaints except her cold sores eating well moving bowels ambulating w/o dizziness Review of Systems Review of Systems: CV - no chest pain pulm - no dyspnea or AKBAR GI - no abd pain or N/V Physical Exam Physical Exam: gen - NAD, looks well, laying in bed mouth - MMM lips - minor cold sore upper lip heart - 2/6 holosystolic murmur RUSB - no change; RRR, s1 s2 lungs - CTA b/l abd - soft NT ND BS+ ext - no edema, pulses 2+ b/l psych - awake, alert, oriented x 3 Results & Data Results & Data Vital Signs (Past 12 Hours) Vital Signs Temp Pulse Resp BP Pulse Ox O2 Del Method 02/08/24 15:40 36.5 C 72 18 110/71 98 Room Air PG Care Time/CCT Total # of Minutes Spent Total Time Spent with Patient: Total time spent is greater than 50% in coordination of care (as documented) at patient's floor/unit and/or counseling patient: Coding Level of Care Code 90928 SUB INP/OBS CARE 07/31MIN Diagnoses Severe alcohol use disorder F10.20 Major depression F32.9 Iron deficiency anemia D50.9 History of Tayler-en-Y gastric bypass Z98.84 Aortic stenosis I35.0
--- NOTE | 2024-02-09 10:47 | Discharge Summary ---
Discharge Summary Date of Service date of admission - January 23, 2024 date of discharge - February 09, 2024 Principal Dx & Hospital Course #1 = Principal Diagnosis (1) Severe alcohol use disorder: Mrs Nielsen likely had moderate etoh withdrawal early in the hospitalization. She presented with recent hallucinations, mild tachycardia, dizziness, slurred speech, etc. These symptoms improved within the first portion of her stay with supportive care. Due to altered mental status MRI brain was obtained and this showed no acute/subacute CVA, tumor, ICH, etc. CTA head/neck were both normal. Echo showed trivial-mild aortic stenosis otherwise did not show a source of thrombus. Vitamin B1 level returned artificially high likely due to supplementation prior to the B1 level being drawn. [id number] would continue the thiamine for now; plan 3-4 weeks more of B1 then stop. Recommend ongoing use of multi-vitamin and folic acid. Continue naltrexone 50mg daily. Mrs Nielsen is transferring to an inpatient alcohol rehabilitation program in [place], [place] at time of discharge. (2) Major depression: Longstanding history of depression. She endorsed thoughts of dying/suicidal ideation with recent intent "to drink myself to " and had recently contemplated mixing pills and alcohol for this purpose approximately 2 weeks prior to admission. She also had been suffering from insomnia and poor appetite. She was seen in consult by [facility]. Following admission she voiced no active suicidal ideation. Psychiatry advised increasing her sertraline to 150mg/day. Inpatient psychiatric treatment was not recommended but alcohol rehabilitation was encouraged. Her seroquel 100mg at bedtime was continued. Her hydroxyzine 50mg at bedtime was also continued. QTc on most recent EKG was normal. Vitamin B12 and TSH were recently normal. Sustained etoh abstinence will help her depression/moods tremendously. (3) Iron deficiency anemia: ferritin low 40s this is in setting of prior gastric bypass s/p 300mg of IV venofer 02/02 s/p 300mg of IV venofer again on 02/03 serum copper level returned normal CBC was stable on 02/07/24 - hemoglobin was 8.8 baseline hemoglobin is about 9-10 stool was heme NEGATIVE during the stay here recheck CBC in 1 week post-discharge along with fe studies; consider additional IV venofer if necessary (4) History of Tayler-en-Y gastric bypass: cont PPI BID copper level returned normal replaced low iron as noted in #3 above (5) Aortic stenosis: mild on echo 2022 echo this admission - again mild, EF wnl repeat echo 1-2 years Plan dysphagia - last EGD by Dr. Ehsan Mayes ([facility]) 01/31/23 - esophageal ulcer, mild stenosis at GE junction, gastric bypass barium swallow 03/06/23 - moderate esophageal dysmotility, mild esophageal dilatation, gastric bypass, moderate hiatal hernia continue PPI no issues w/ swallowing while here malnutrition - albumin 3 during the stay -added BOOST; cont MVI, thiamine, etc -appetite was excellent later in the visit hypertension well controlled; continue lisinopril Herpes labialis - completed 3-day course of valacyclovir for HSV flare on her lips early in the stay then got a second flare - valtrex course restarted 02/02; would stay on once daily valtrex during her time in rehab for prophylaxis; consider 2 weeks of valtrex 500mg daily then stop can use zovirax gel as well QID Notes For Next Care Provider Medication Changes From Visit 1. addition of NALTREXONE 50mg once daily 2. INCREASE of SERTRALINE to 150mg once daily 3. addition of valtrex 500mg once daily x 14 days Admission HPI Per Admitting Provider Pretty Nielsen is a 68-year-old female with PMH of alcohol use, depression, syncope, esophageal dysmotility, gastric bypass, and starvation ketoacidosis. She presented on 01/22 for dizziness, slurred speech, and gait instability. Hx of prior [place] admissions for alcohol withdrawal and similar presentation. Patient reports that her confusion, nausea, and visual hallucinations started the evening of 01/21. She reports she was seeing "cats, kittens, small children, parent/people, and things on the wall". She has had prior visual hallucinations in the past, but never this bad. She has also had slurred speech ongoing for the past 3 days, and reports she has been unsteady on her feet. Patient reports drinking 3-4 drinks of rum and coke per day; last drink was this morning at 6 AM. Patient took all her regular medications last night; none this morning; no recent change in medications. She reports that she has been drinking due to "habit" denies any new life stressors. She does endorse history of mild alcohol withdrawal, but denies history of alcohol withdrawal seizures. Patient denies history of strokes. No supplemental oxygen at home. Patient denies tobacco use, or recreational drug use. Patient is tachycardic at 114 bpm at time of admission; vitals otherwise stable. ED course: Thiamine 100 mg IV Folic acid 1 g IV Multivitamins Plasma-Lyte 1000 mL IV ROS: Patient endorses visual hallucinations, slurred speech (ongoing), chronic cough, nausea, intermittent diarrhea, Patient denies fever, chills, night-sweats, dizziness, lightheadedness, PARNELL, changes in vision, facial droop, unilateral deficits, chest pain, SOB, pleuritic CP, abdominal pain, vomiting, burning with urination, dysuria, blood in the urine/stool, or numbness/tingling in arms or legs. Discharge Exam gen - NAD, looks well mouth - MMM lips - minor cold sore upper lip heart - 2/6 holosystolic murmur RUSB - no change; RRR, s1 s2 lungs - CTA b/l abd - soft NT ND BS+ ext - no edema, pulses 2+ b/l psych - awake, alert, oriented x 3 Updated Medication List Medication Instructions Recorded Confirmed Type quetiapine 100 mg tablet 50 mg PO HS 10/22/22 01/23/24 History hydroxyzine pamoate 100 mg capsule 100 mg PO UD 01/07/23 01/23/24 History sertraline 100 mg tablet (Zoloft) 100 mg PO UD 01/07/23 01/23/24 History lisinopril 10 mg tablet 20 mg PO HS 01/31/23 01/23/24 History alendronate 70 mg tablet 70 mg PO Q7D 04/26/23 01/23/24 History valacyclovir 1 gram tablet 1,000 mg PO UD PRN Cold Sores 07/21/23 01/23/24 History cholecalciferol (vitamin D3) 125 125 mcg PO QAM #90 tabs 10/26/23 01/23/24 Rx mcg (5,000 unit) tablet thiamine HCl (vitamin B1) 100 mg 100 mg PO QAM #90 tabs 10/26/23 01/23/24 Rx tablet acetaminophen 500 mg tablet 1,000 mg PO BID PRN Pain (Scale 11/16/23 01/23/24 History (Tylenol Extra Strength) Score 1-3) magnesium oxide 400 mg (241.3 mg 400 mg PO BID #60 tabs 11/21/23 01/23/24 Rx magnesium) tablet tramadol 50 mg tablet 50 mg PO Q6H PRN pain #20 tabs 11/21/23 01/23/24 Rx folic acid 1 mg tablet 1 mg PO UD 01/23/24 01/23/24 History ondansetron 4 mg disintegrating 4 mg PO UD PRN nausea and vomiting 01/23/24 01/23/24 History tablet pantoprazole 40 mg tablet,delayed 40 mg PO BID 01/23/24 01/23/24 History release sertraline 150 mg capsule 150 mg PO DAILY #30 caps 01/30/24 Rx acyclovir 5 % topical ointment 1 applic EXT QID 5 days #1 tube 02/09/24 Rx (Zovirax) multivitamin 1 tab PO DAILY #90 tabs 02/09/24 Rx Hospital Stay Data Consultations Psychiatry Procedures Performed Echocardiogram - Diagnostic Imagining Performed Head CT 01/23/24 16:39 CT head/brain wo con CLINICAL HISTORY: dizzy Technique: Contiguous axial CT images of the head were acquired from the base of the skull to the vertex without intravenous contrast administration. Images were viewed in brain, subdural and bone windows. Automated dose lowering techniques and/or adjustment according to patient size were utilized for this exam. Comparison: Comparison is made to CT head 11/15/2023 Findings: Areas of decreased attenuation are present in the periventricular and subcortical white matter bilaterally consistent with small vessel ischemic disease. Generalized cerebral atrophy with commensurate enlargement of the ventricles, sulci, and cisterns is also present. There is no acute intracranial hemorrhage or evidence of acute territorial infarction. No shift of the midline structures, mass effect, or extra-axial abnormalities are shown. Atherosclerotic calcifications are present in the intracranial segments of the internal carotid arteries. Imaged portions of the paranasal sinuses and mastoid air cells are clear. The orbits appear normal. There are no acute fractures of the calvaria or scalp swelling. Impression: No acute intracranial hemorrhage, no evidence of acute territorial infarction or other acute intracranial disease process. ACT 112: Negative or not required by law. Electronically signed by: Donaldo Pryor M.D. 01/23/2024 5:24 PM Chest X-Ray 01/23/24 17:23 XR chest 1V portable CLINICAL HISTORY: cant walk TECHNIQUE: Single frontal radiograph of the chest was obtained. Comparison: Comparison is made to chest radiograph 11/16/2023 FINDINGS: No lines and tubes are seen. Calcified aortic knob is seen. The lungs are clear. No evidence of pleural effusion or pneumothorax. IMPRESSION: No acute chest disease. ACT 112: Negative or not required by law. Electronically signed by: Donaldo Pryor M.D. 01/23/2024 6:38 PM Head CTA 01/23/24 18:23 Exam(s): CTA HEAD With Contrast IV Amt: 119 ML OPTIRAY 320 EXAM: CT Angiography Head With Intravenous Contrast CLINICAL HISTORY: Reason for exam: slurred speech. TECHNIQUE: Axial computed tomographic angiography images of the head with intravenous contrast. CTDI is 24.5 mGy and DLP is 435.19 mGy-cm. Automated exposure control was utilized for the study. A dose lowering technique was utilized adhering to the principles of ALARA. 3D and MIP reconstructed images were created and reviewed. CONTRAST: Patient received 119 ML OPTIRAY 320 of IV contrast COMPARISON: CT head 01-23-2024 FINDINGS: Right internal carotid artery: Mild calcified plaque at the cavernous internal carotid artery with intact distal runoff. No aneurysm. Right anterior cerebral artery: Unremarkable. No occlusion or significant stenosis. No aneurysm. Right middle cerebral artery: Unremarkable. No occlusion or significant stenosis. No aneurysm. 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 No occlusion or significant stenosis. No aneurysm. Right vertebral artery: Unremarkable as visualized. Left internal carotid artery: Mild calcified plaque at the cavernous internal carotid artery with intact distal runoff. No aneurysm. Left anterior cerebral artery: Unremarkable. No occlusion or significant stenosis. No aneurysm. Left middle cerebral artery: Unremarkable. No occlusion or significant stenosis. No aneurysm. Left posterior cerebral artery: Congenital variation with hypoplastic P1 segment of the left posterior cerebral artery with a patent left posterior communicating artery supplying remainder of left posterior cerebral artery. No occlusion or significant stenosis. No aneurysm. Left vertebral artery: Unremarkable as visualized. Basilar artery: Unremarkable. No occlusion or significant stenosis. No aneurysm. IMPRESSION: No large vessel occlusion. Electronically signed by: Kurt Luna M.D. 01/23/24 23:24 PM Neck CTA 01/23/24 18:23 Exam(s): CTA NECK With Contrast IV Amt: 119 ML OPTIRAY 320 EXAM: CT Angiography Neck With Intravenous Contrast CLINICAL HISTORY: Reason for exam: slurred speech. TECHNIQUE: Routine carotid CT angiography protocol was performed with intravenous contrast. NASCET criteria using the distal ICAs for comparison were used for evaluation of stenoses. CTDI is 12.15 mGy and DLP is 435.9 mGy-cm. Automated exposure control was utilized for the study. A dose lowering technique was utilized adhering to the principles of ALARA. 3D and MIP reconstructed images were created and reviewed. CONTRAST: Patient received 119 ML OPTIRAY 320 of IV contrast COMPARISON: None. FINDINGS: VASCULATURE: Right common carotid artery: Unremarkable. No occlusion or significant stenosis. No dissection. Right internal carotid artery: Mild calcified plaque at the right carotid bulb without a hemodynamically significant stenosis.. No dissection. Right external carotid artery: Unremarkable. No occlusion. Right vertebral artery: Unremarkable. No occlusion or significant stenosis. No dissection. Left common carotid artery: Unremarkable. No occlusion or significant stenosis. No dissection. Left internal carotid artery: Mild calcified plaque at the left carotid bulb without a hemodynamically significant stenosis.. No dissection. Left external carotid artery: Unremarkable. No occlusion. Left vertebral artery: Unremarkable. No occlusion or significant stenosis. No dissection. NECK: Bones/joints: Degenerative changes of the spine. No acute fracture. Soft tissues: Unremarkable. Lung apices: Clear. CAROTID STENOSIS REFERENCE USING NASCET CRITERIA: % ICA stenosis = (1 - narrowest ICA diameter/diameter of distal cervical ICA) x 100. Mild - <50% stenosis. Moderate - 50-69% stenosis. Severe - 70-94% stenosis. Near occlusion - 95-99% stenosis. Occluded - 100% stenosis. IMPRESSION: No hemodynamically significant stenosis. Electronically signed by: Kurt Luna M.D. 01/23/24 23:29 PM Brain MRI 01/23/24 18:27 Exam(s): MRI HEAD Without Contrast EXAM: MR Head Without Intravenous Contrast CLINICAL HISTORY: Reason for exam: Slurred speech; stroke r/o. TECHNIQUE: Magnetic resonance images of the head/brain without intravenous contrast in multiple planes. COMPARISON: CT head 01/23/2024. FINDINGS: Brain: Age-appropriate central and peripheral atrophy. No acute stroke. Mild degree of supratentorial periventricular and subcortical white matter hyperintensities on FLAIR and T2-weighted images. No mass lesion. No acute hemorrhage or abnormal extra-axial fluid collection. Ventricles: No midline shift. No ventriculomegaly. Bones/joints: Unremarkable. No acute fracture. Sinuses: Unremarkable as visualized. No acute sinusitis. Mastoid air cells: Unremarkable as visualized. No mastoid effusion. Orbits: Unremarkable as visualized. IMPRESSION: 1. No acute stroke or hemorrhage. 2. Nonspecific white matter changes most commonly seen with small vessel disease. Electronically signed by: Kurt Luna M.D. 01/23/24 23:21 PM Pending Results Patient Have Any Pending Studies at Discharge: No Discharge Instructions Given to Patient (Per Discharging Provider) Mrs Nielsen was initially hospitalized for alcohol withdrawal. Withdrawal symptoms resolved within the first portion of her stay. She was seen in consultation by psychiatry due to her depression/mood disorder. They recommended titration of sertraline to 150 mg daily. Inpatient psychiatric treatment was not recommended by the psychiatry team. Psychiatry did encourage patient to pursue inpatient alcohol rehabilitation, however. Mrs Nielsen was very interested in inpatient alcohol rehab and is transferring to such facility at time of discharge. During her stay - due to her confusion/encephalopathy - she underwent MRI brain and CTA head/neck. MRI brain was negative for acute stroke. CTA head/neck did not show any significant stenoses. Echo was performed due to heart murmur heard on exam. She has trivial-mild aortic stenosis only. Repeat echo in 1-2 years advised. She was maintained on naltrexone 50mg daily for her alcohol use disorder. She suffered no side effects from such. Finally, due to iron deficiency anemia (ferritin 44) in the setting of gastric bypass status, she received 2 venofer infusions - each 300mg. Discharge hemoglobin was 8.8. Recommendations - 1. repeat CBC, BMP in 1 week 2. repeat iron, TIBC, ferritin, transferrin saturation level in 1 week 3. following her stay at acute inpatient alcohol rehab recommend the following - * see PCP within 1 week * see outpatient mental health provider within 1 week for med management It was our pleasure to care for Mrs Nielsen! -Dr Winston Total Time Total Time Spent Total Time Spent (In Minutes): 50 Coding Level of Care Code 78227 INP/OBS DISCH >30 MIN Diagnoses Severe alcohol use disorder F10.20 Major depression F32.9 Iron deficiency anemia D50.9 History of Tayler-en-Y gastric bypass Z98.84 Aortic stenosis I35.0
== END 2024-02-09 13:25 | disposition alcohol treatment (31) | DRG 897 ==
LOC: ED 14:14 → SUATTDRO 18:10 → 4W 18:10 → 3N 01-24 19:28

== ENCOUNTER 2024-06-20 06:52 | Inpatient (IN) ==
--- NOTE | 2024-06-20 08:41 | Emergency Department Note ---
History of Present Illness General Chief complaint: Fall Stated complaint: Fall x2, Chest Pain Time Seen by Provider: 06/20/24 07:48 History of Present Illness Maximum Pain Intensity: 1 Patient is a 68-year-old female with past medical history significant for alcohol abuse, depression, esophageal dysmotility, history of gastric bypass, osteoporosis, aortic stenosis, iron deficiency anemia, history of malnutrition, among other chronic presents to the emergency department via EMS for evaluation of falls and weakness at home. Patient provides the history. She is normally ambulatory with a walker. She reports 3 falls over the last 3 days at home, mostly because she says she tripped and fell. The first fall was on this Friday, and she had 2 falls yesterday. She reports tripping over her walker and falling. She did hit her head once on Friday, with no loss of consciousness. She summoned EMS each time, and they helped her up and evaluated her, but she refused transport. She has subsequently developed lower rib and midsternal pain that radiates through to her back. It is fine when she is laying at rest, but worse when she tries to move or take a deep breath. She is generally feeling weak. She called the ambulance this morning because she could not get herself out of bed and did not feel that she could take care of herself. She does report a cough of thick mucus but no hemoptysis. She denies any urinary symptoms and feels like she has been moving her bowels normally for her. She does report that she has been eating well. She admits to drinking a rum and coke last night. She has some neck and mid back pain as well as the chest pain. She does not take any blood thinning medications. Upon arrival in the ED, patient was noted to be hypoxic on room air with an oxygen saturation of 86%. She was placed on 2 L nasal cannula and responded well to this. Home Medications Medication Instructions Recorded Confirmed Type acetaminophen 500 mg tablet 1,000 mg (2 x 500 mg) PO Q8H PRN 02/09/24 Rx (Tylenol Extra Strength) pain or fever #30 tabs acyclovir 5 % topical ointment 1 applic topical QID #10 grams 02/09/24 Rx (Zovirax) alendronate 70 mg tablet 70 mg PO Q7D #4 tabs 02/09/24 Rx cholecalciferol (vitamin D3) 125 125 mcg PO QAM #30 tabs 02/09/24 Rx mcg (5,000 unit) tablet folic acid 1 mg tablet 1 mg PO DAILY 30 days #30 tabs 02/09/24 Rx hydroxyzine pamoate 100 mg capsule 50 mg (1/2 x 100 mg) PO HS #30 caps 02/09/24 Rx lisinopril 10 mg tablet 20 mg (2 x 10 mg) PO HS #60 tabs 02/09/24 Rx magnesium oxide 400 mg (241.3 mg 400 mg PO BID #60 tabs 02/09/24 Rx magnesium) tablet multivitamin 1 tab PO DAILY #30 tabs 02/09/24 Rx naltrexone 50 mg tablet 50 mg PO DAILY #30 tabs 02/09/24 Rx ondansetron 4 mg disintegrating 4 mg PO Q6H PRN nausea and 02/09/24 Rx tablet vomiting #10 tabs pantoprazole 40 mg tablet,delayed 40 mg PO BID #60 tabs 02/09/24 Rx release quetiapine 100 mg tablet 100 mg PO HS #30 tabs 02/09/24 Rx sertraline 50 mg tablet 150 mg (3 x 50 mg) PO HS #90 tabs 02/09/24 Rx thiamine HCl (vitamin B1) 100 mg 100 mg PO QAM #30 tabs 02/09/24 Rx tablet valacyclovir 1 gram tablet 500 mg (1/2 x 1 gram) PO DAILY 02/09/24 Rx Cold Sores 14 days #14 tabs Allergies Allergy/AdvReac Type Severity Reaction Status Date / Time No Known Allergies Allergy Verified 11/16/23 23:27 Past Med/Surg History Problem List (Updated 06/20/24 @ 13:37 by Chano Garner) Hypomagnesemia (Acute) Compression fracture of T2 vertebra Compression fracture of T1 vertebra (Acute) Compression fracture of C7 vertebra (Acute) Generalized weakness (Acute) Closed fracture of manubrium (Acute) Closed T2 fracture (Acute) Aortic stenosis History of Tayler-en-Y gastric bypass Iron deficiency anemia Major depression Severe alcohol use disorder Acute UTI (Acute) Hypomagnesemia (Acute) Low back pain (Acute) Weakness (Acute) Acute kidney injury (Acute) Fall (Acute) Anemia (Acute) Acute chest wall pain (Acute) Starvation ketoacidosis Urinary tract infection due to Klebsiella species Nausea and vomiting History of gastric bypass (Acute) Anemia (Acute) MURALI (acute kidney injury) (Acute) Vomiting and diarrhea (Acute) Syncope (Acute) Hypotension (Acute) Esophageal dysmotility Poor nutrition (Acute) Encounter for pre-operative examination Alcohol intoxication (Acute) Syncope (Acute) Cholecystitis (Acute 01/09/14) Abdominal pain (Acute) Depression Medical History Hyponatremia GERD (gastroesophageal reflux disease) Alcohol use disorder Osteoarthritis Acid reflux Anemia History of depression Insomnia Hypertension Surgical History H/O gastric bypass History of section x 1 History of open reduction and internal fixation (ORIF) procedure right wrist--hardware in place History of total left hip replacement History of colonoscopy History of esophagogastroduodenoscopy (EGD) History of wisdom tooth extraction History of cholecystectomy H/O: hysterectomy Family History Other No family history of adverse response to anesthesia Social History Smoking Status: Never smoker Second Hand Exposure: No; Do You Dip or Chew Tobacco: No; Hx Alcohol Use: Yes Alcohol type: hard liquor Hx Substance Use: No Preferred Language: Haitian Communication Ability: Effective Electrical Wirer Required: No Beliefs That Will Affect Care: None Current Living Situation: Personal Care Facility Current Living Situation Comment: Lives at [facility] independent [facility] Feels Safe at Home: Yes Assistive Devices: Walker Review of Systems A total of 10 systems reviewed and were otherwise negative Physical Exam Vital Signs Vital Signs - 24 hr 06/20/24 07:01 06/20/24 07:01 06/20/24 07:08 Temperature Temperature Source Pulse Rate 90 89 Pulse Rate [Apical] Pulse Rate [Right Finger] Pulse Rhythm Regular Respiratory Rate 22 Respiratory Effort / Characteristics Respiratory Depth Respiratory Pattern Blood Pressure Blood Pressure [Right Arm] Blood Pressure Mean Blood Pressure Mean [Right Arm] Pulse Oximetry 86 L 99 Oxygen Delivery Method Room Air Nasal Cannula Nasal Cannula Oxygen Flow Rate 0 2 Sepsis Recent Fever Within 48 Hours Sepsis New/Unexplained Change in Mental Status Sepsis Action Taken by Nursing Oxygen Flow Rate - Titration 2 Pulse Oximetry Post Tiitration 99 06/20/24 07:24 06/20/24 07:24 06/20/24 09:00 Temperature 37.2 C Temperature Source Oral Pulse Rate 89 Pulse Rate [Apical] 85 Pulse Rate [Right Finger] Pulse Rhythm Respiratory Rate 22 22 20 Respiratory Effort / Characteristics Non-Labored Non-Labored Respiratory Depth Normal Normal Normal Respiratory Pattern Blood Pressure 114/73 Blood Pressure [Right Arm] 114/73 142/83 H Blood Pressure Mean 86 Blood Pressure Mean [Right Arm] 86 102 Pulse Oximetry 86 L 99 98 Oxygen Delivery Method Room Air Nasal Cannula Nasal Cannula Oxygen Flow Rate 2 2 Sepsis Recent Fever Within 48 Hours No Sepsis New/Unexplained Change in Mental Status No Sepsis Action Taken by Nursing No Action Required Oxygen Flow Rate - Titration Pulse Oximetry Post Tiitration 06/20/24 11:27 06/20/24 11:30 06/20/24 11:39 Temperature Temperature Source Pulse Rate 80 Pulse Rate [Apical] 79 Pulse Rate [Right Finger] Pulse Rhythm Respiratory Rate 20 17 Respiratory Effort / Characteristics Non-Labored Spontaneous Respiratory Depth Normal Respiratory Pattern Regular Blood Pressure 143/86 H Blood Pressure [Right Arm] 152/103 H Blood Pressure Mean 110 Blood Pressure Mean [Right Arm] 119 Pulse Oximetry 92 92 Oxygen Delivery Method Room Air Room Air Oxygen Flow Rate Sepsis Recent Fever Within 48 Hours Sepsis New/Unexplained Change in Mental Status Sepsis Action Taken by Nursing Oxygen Flow Rate - Titration Pulse Oximetry Post Tiitration 06/20/24 12:39 Temperature Temperature Source Pulse Rate Pulse Rate [Apical] Pulse Rate [Right Finger] 80 Pulse Rhythm Respiratory Rate 16 Respiratory Effort / Characteristics Non-Labored Spontaneous Respiratory Depth Normal Respiratory Pattern Regular Blood Pressure Blood Pressure [Right Arm] 153/88 H Blood Pressure Mean Blood Pressure Mean [Right Arm] 109 Pulse Oximetry 92 Oxygen Delivery Method Room Air Oxygen Flow Rate Sepsis Recent Fever Within 48 Hours Sepsis New/Unexplained Change in Mental Status Sepsis Action Taken by Nursing Oxygen Flow Rate - Titration Pulse Oximetry Post Tiitration GENERAL: Patient is a well-appearing 68-year-old female who is awake and alert and sitting semiupright on the gurney in mild distress due to her chest and back pain. Oxygen saturation 99% on 2 L nasal cannula. HEENT: Head - normocephalic and atraumatic. Pupils are equal, round, and reactive to light. Extraocular eye muscles are intact and sclera are anicteric. Ears - bilaterally patent canals with no evidence of hemotympanum. Nose - moist nasal mucosa without evidence of trauma or discharge. Mouth - moist buccal mucosa with no trauma to the teeth or signs of malocclusion. Neck: The neck is supple and there is no pain to palpation over the posterior cervical spine and no obvious step-offs or deformities. There is no JVD or tracheal deviation. Chest: There are no signs of deformities, contusions or abrasions to the chest wall. She is tender over the sternum and inferior ribs bilaterally. There is no obvious crepitus or paradoxical chest rise. Heart: Regular rate, and regular rhythm. Lungs: Breath sounds equal and clear to auscultation. Abdomen: Bowel sounds are present. Well-healed surgical scars are noted. The abdomen is soft, nontender and nondistended. No guarding or rebound. There is no sign of trauma such as contusions, abrasions or penetrations. Pelvis: Stable to rock and compression. Extremities: No obvious trauma, deformities, contusions, or edema. There are easily palpable peripheral pulses. Neuro: The patient is awake and alert and easily able to follow commands. Muscle strength is 5 out of 5 in all 4 extremities. Otherwise, neuro exam is unremarkable. Back: The entire thoracic, lumbar, and sacral spine were palpated. There is discomfort over the thoracic spine, but no pain over the lumbar spinous processes. There are no obvious step-offs or deformities noted. There are no obvious signs of trauma such as contusions abrasions penetrations noted to the back. Course Course The patient was seen and assessed. External medical records were reviewed. Recent hospitalization from February and discharge summary also reviewed. She presents to the emergency department for evaluation of generalized weakness with multiple mechanical falls reported at home over the last couple of days. She is complaining of sternal/rib and mid back discomfort. She did arrive hypoxic with oxygen saturations 86% on room air and was placed on 2 L via nasal cannula. IV lock was initiated and laboratory studies were collected. CBC with differential, CMP, coags, troponin, magnesium, urinalysis and medical alcohol were obtained. She was observed on the residential monitor. EKG was performed. Chest x-ray was obtained. For trauma, head CT, cervical spine CT, thoracic spine CT and chest CT were obtained. Diagnostics, as interpreted by me: Laboratory studies: Normal white count at 7900, H&H mildly low 10.5 and 32.6, but chronic and stable appearing for the patient. Coags are normal. Electrolytes normal, save for magnesium, which is low at 1.4. No indication for MURALI. No significant transaminitis. Urine microscopy notes WBCs and leukocyte esterase only with no bacteria. Medical alcohol is undetectable. Initial high- sensitivity troponin was within normal limits and not indicative of ACS. ECG: Normal sinus rhythm 95 bpm. No interval prolongation, no acute ischemic changes. No significant change on review of prior EKG from 01/2024. Cardiac Monitoring: Cardiac monitoring: An order was placed for continuous cardiac monitoring. The monitor shows a NSR at a rate of 80 per my interpretation. Imaging studies: Chest x-ray no pneumothorax. Head CT: No acute intracranial bleed or mass. Cervical spine CT: C7 compression fracture. Thoracic spine CT: T1 and T2 compression fractures Chest CT: No PE. Minimally displaced manubrial fracture. No pneumothorax. No pleural effusion. No consolidation. Patient was reassessed frequently. Diagnostic imaging studies and laboratory studies were reviewed with her. Her chest and back pain do appear to be traumatic, and are likely related to the compression fractures and the manubrial fracture. She was given Tylenol and tramadol p.o for pain. She was ordered magnesium repletion IV. I did reassess the patient and take her off of the oxygen. She was maintaining sats on room air. No further hypoxia documented. Oxygen was discontinued. After review of the information above and other included data, I feel the patient does require further inpatient care and orthopedic spine evaluation. Case reviewed with attending physician, Dr. Vincent. Patient discussed with the ED welfare case worker, and consultation placed with the [facility] Hospitalist Service for further care and management. Patient reviewed with Vani Vanegas PA-C. I did also review the spine findings with orthopedic spine surgery, Dr. Perez, who requested cervical and thoracic spine MRIs to evaluate the injuries in more detail, and to determine course of action. He also recommended spinal precautions, and asked for a [place] J collar to be applied. Collar was ordered. This information was related to the hospitalist service. The patient remained stable in the emergency department, awaiting inpatient bed. Differential diagnosis: Rib fracture, sternal fracture, pulmonary contusion, retrosternal hematoma, ACS, PE pneumonia, pulmonary contusion, compression fracture, infection, dehydration, metabolic abnormality, hypo/hyperglycemia, electrolyte disturbance, anemia, hypoxia, intracerebral event, toxicologic, neurologic, among others. Administered Medications Discontinued Medications Acetaminophen (Acetaminophen 325 Mg Tab) 650 mg PO NOW STA Stop: 06/20/24 11:26 Last Admin: 06/20/24 11:30 Dose: 650 mg Documented By: CHILO Ioversol (Optiray 320 125ml) 120 ml IV ONCE ONE Stop: 06/20/24 09:51 Last Admin: 06/20/24 09:46 Dose: 120 ml Documented By: DRE Lisinopril (Lisinopril 20 Mg Tab) 20 mg PO NOW STA Stop: 06/20/24 11:34 Last Admin: 06/20/24 12:07 Dose: 20 mg Documented By: CHILO Tramadol HCl (Tramadol Hcl 50 Mg Tablet) 50 mg PO NOW STA Stop: 06/20/24 11:26 Last Admin: 06/20/24 11:31 Dose: 50 mg Documented By: CHILO Medical Decision Making Differential Diagnosis See ED course. Medical Records Attestation: I reviewed the patient's medical records. Home Medications Current Medication List: was personally reviewed by me Laboratory Data Attestation: I reviewed the patient's lab results. 06/20/24 08:17 06/20/24 08:17 Lab Results 06/20/24 06/20/24 Range/Units 08:17 Unknown WBC 7.95 (4.8-10.8) K/ul RBC 3.53 L (4.20-5.40) M/uL Hgb 10.5 L (12.0-16.0) g/dl Hct 32.6 L (37.0-47.0) % MCV 92.4 (80.0-100.0) fL MCH 29.7 (25.0-34.0) pg MCHC 32.2 (32.0-36.0) g/dL RDW Std Deviation 54.7 H (36.4-46.3) fL RDW Coeff of Cate 16.3 H (11.5-14.5) % Plt Count 179 (130-400) K/uL MPV 9.0 L (9.4-12.4) fL Immature Gran % (Auto) 0.4 % Neut % (Auto) 76.6 % Lymph % (Auto) 10.3 % Walker % (Auto) 11.4 % Eos % (Auto) 0.8 % Baso % (Auto) 0.5 % Neut # (Auto) 6.09 (1.40-6.50) K/uL Lymph # (Auto) 0.82 L (1.20-3.40) K/uL Walker # (Auto) 0.91 H (0.11-0.59) K/uL Eos # (Auto) 0.06 (0.00-0.50) K/uL Baso # (Auto) 0.04 (0.00-0.20) K/uL Immature Gran # (Auto) 0.03 (0.01-0.20) K/uL PT 11.0 (9.0-12.0) Seconds INR 1.0 (0.9-1.1) APTT 30 (21-31) Seconds PTT Ratio 1.1 Sodium 137 (136-145) mmol/L Potassium 3.6 (3.5-5.1) mmol/L Chloride 98 (98-107) mmol/L Carbon Dioxide 28 (21-32) mmol/L Anion Gap 11 (3-11) BUN 10 (6-23) mg/dl Creatinine 0.63 (0.6-1.2) mg/dl Est Cr Clr Drug Dosing 82.1 ml/min eGFR 96.57 BUN/Creatinine Ratio 15.9 (10-20) Glucose 62 L (70-99(Fasting)) mg/dl Calcium 8.5 L (8.6-10.3) mg/dl Magnesium 1.4 L (1.7-2.4) mg/dl Total Bilirubin 0.5 (0.2-1.0) mg/dl AST 49 H (13-39) U/L ALT 23 (7-52) U/L Alkaline Phosphatase 110 H (34-104) U/L Troponin I High Sens 6.0 (0-14) pg/ml Total Protein 5.8 L (6.0-8.3) gm/dl Albumin 3.4 (3.4-5.0) gm/dl Globulin 2.4 L (2.5-4.0) gm/dl Albumin/Globulin Ratio 1.4 (0.9-2) Folate 16.74 (>5.38) ng/ml Urine Color Yellow Urine Appearance Clear (Clear) Urine pH 5.5 (4.5-7.5) Ur Specific [place] 1.011 (1.000-1.030) Urine Protein Negative (Negative) Urine Glucose (UA) Negative (Negative) Urine Ketones Trace H (Negative) Urine Blood Negative (Negative) Urine Nitrite Negative (Negative) Urine Bilirubin Negative (Negative) Urine Urobilinogen Negative (Negative) Ur Leukocyte Esterase 1+ H (Negative) Urine WBC (Auto) 11-20 H (0-5) /hpf Urine RBC (Auto) 0-2 (0-2) /hpf U Hyaline Cast (Auto) 0-2 (0-2) /lpf U Epithel Cells (Auto) 0-2 (0-2) /hpf Urine Bacteria (Auto) None Seen (None Seen) Ethyl Alcohol mg/dL < 10.0 (<10.0) mg/dl Imaging Data Attestation: I personally reviewed and interpreted this imaging study as follows: Radiologist's Impression: Chest X-Ray 06/20/24 07:36 XR chest 1V not portable CLINICAL HISTORY: Chest pain, nonspecific COMPARISON STUDY: Chest CT March 05, 2023. Chest radiograph January 23, 2024. FINDINGS: Lung volumes are normal. Old bilateral rib fractures. No pneumothorax or pleural effusion is present. There is mild cardiomegaly. Mild interstitial thickening is present. No consolidation is identified. IMPRESSION: Cardiomegaly with suspected mild interstitial pulmonary edema. ACT 112: Negative or not required by law. Electronically signed by: Ajit Young M.D. 06/20/2024 8:[address] 06/20/24 08:23 CT OF THE CERVICAL SPINE WITHOUT CONTRAST CLINICAL HISTORY: FALL, NECK PAIN COMPARISON STUDY: Cervical spine CT November 15, 2023. CTA of the neck January 23, 2024. TECHNIQUE: Helical axial images of the cervical spine were obtained without IV contrast. Sagittal and coronal reconstructions were viewed. Automated exposure control was utilized for the study. A dose lowering technique was utilized adhering to the principles of ALARA. FINDINGS: Alignment of the cervical spine is anatomic. There is mild loss of height of the superior endplate of C7 which is new since CT of January 23, 2024. Subtle cortical irregularity of the superior endplate and anterior cortex of T1 is noted. A moderate T2 compression fracture with buckling of the anterior cortex and mild retropulsion is noted. There is also an acute acute appearing nondisplaced fracture through the spinous process of T2. These findings are new since prior CT as well. IMPRESSION: 1. Mild C7 compression fracture which is age indeterminate but new since CT of January 23, 2024. 2. Moderate T2 compression fracture with mild retropulsion which is also age- indeterminate but new since CT of January 23, 2024. Given acute appearing fracture through the spinous process of T2, this fracture is likely acute. 3. Mild age-indeterminate T1 compression deformity. ACT 112: Negative or not required by law. Electronically signed by: Ajit Young M.D. 06/20/2024 10:20 AM Chest CTA 06/20/24 08:23 CT ANGIOGRAPHY OF THE CHEST, PULMONARY EMBOLUS PROTOCOL CLINICAL HISTORY: STERNAL AND RIB PAIN, FALL, SOB, HYPOXIC COMPARISON STUDY: Chest radiograph performed earlier today. Chest CT March 05, 2023. TECHNIQUE: Following IV administration of Optiray, helical axial images of the chest were obtained utilizing the pulmonary embolus protocol. Maximal intensity projections and sagittal and coronal reformats were viewed on an independent 3D workstation. IV contrast was administered without complication. Automated exposure control was utilized for the study. A dose lowering technique was utilized adhering to the principles of ALARA. FINDINGS: No pulmonary emboli are identified. Dilatation of the central pulmonary arteries is again noted. The heart is moderately enlarged. There is no pericardial effusion. There is a moderate sized hiatal hernia. Postoperative findings within the stomach are present. There is no pneumothorax or pleural effusion. Subpleural reticulation and groundglass opacities are similar to prior CT. There is no consolidation to suggest pneumonia. There are no suspicious pulmonary nodules. There is an acute minimally displaced manubrial fracture. Multiple old bilateral rib fractures are present. There are fractures of C7, T1 and T2, better depicted on the thoracic spine CT which will be reported separately. IMPRESSION: 1. No pulmonary emboli identified. 2. Acute minimally displaced manubrial fracture. 3. C7, T1 and T2 fractures better depicted on the thoracic spine CT which will be reported separately. 4. Cardiomegaly. Dilatation of the central pulmonary arteries which raises the possibility of pulmonary arterial hypertension. 5. Numerous old bilateral rib fractures. ACT 112: Negative or not required by law. Electronically signed by: Ajit Young M.D. 06/20/2024 10:[address] 06/20/24 08:23 CT OF THE HEAD WITHOUT CONTRAST CLINICAL HISTORY: FALL, HEAD INJURY COMPARISON STUDY: Head CT, CTA of the head and MRI of the brain January 23, 2024. TECHNIQUE: Helical axial images of the head were obtained without IV contrast. Automated exposure control was utilized for the study. A dose lowering technique was utilized adhering to the principles of ALARA. FINDINGS: No acute intracranial hemorrhage, midline shift or mass effect is present. White matter hypodensities are unchanged and favor small vessel disease. The ventricular system is unremarkable. The basal cisterns are patent. No extra-axial collections are present. There are no findings to suggest acute dural sinus thrombosis or acute territorial infarct. No significant calvarial abnormalities are present. Visualized portions of the sinuses and mastoid air cells are clear. IMPRESSION: 1. No acute intracranial findings. 2. No calvarial fractures. ACT 112: Negative or not required by law. Electronically signed by: Ajit Young M.D. 06/20/2024 10:[address] 06/20/24 08:23 CT thoracic spine w con CLINICAL HISTORY: MID BACK PAIN S/P FALL COMPARISON STUDY: Chest CT March 05, 2023. TECHNIQUE: Axial images of the thoracic spine were obtained. Sagittal and coronal reformats were viewed. Automated exposure control was utilized for the study. A dose lowering technique was utilized adhering to the principles of ALARA. FINDINGS: There is a T2 compression fracture with 50% loss of vertebral body height and minimal retropulsion. This is new since CT of March 05, 2023. Mild associated paravertebral edema is present. There is an acute appearing nondisplaced fracture through the spinous process of T2. Mild loss of height of C7 is noted as well as subtle cortical irregularity anterior cortex and superior endplate of T1. No additional spinal fractures are identified on this examination. Acute minimally displaced manubrial fracture is better depicted on the chest CT which will be reported separately. IMPRESSION: 1. T2 fracture with 50% loss of vertebral body height and minimal retropulsion. Given paravertebral edema, this fracture is likely acute. Acute appearing nondisplaced fracture through the spinous process of T2. 2. Slight loss of height of C7 and subtle cortical irregularity of the superior endplate and anterior cortex of T1. These fractures are also likely acute. 3. Acute minimally displaced manubrial fracture better depicted on the chest CT which will be reported separately. ACT 112: Negative or not required by law. Electronically signed by: Ajit Young M.D. 06/20/2024 10:34 AM Cervical Spine MRI 06/20/24 11:27 MRI OF THE CERVICAL SPINE WITHOUT CONTRAST CLINICAL HISTORY: C7 compression fracture COMPARISON: Cervical spine CTs November 15, 2023 and June 20, 2024. TECHNIQUE: Utilizing a 1.5 Rohini magnet and dedicated coil, multiplanar, multiecho imaging of the cervical spine was performed without IV contrast. FINDINGS: This exam is mildly compromised by motion artifact. Cervical cord signal and caliber are normal. There is no intracanalicular mass or fluid collection. There is mild marrow edema within the C7 vertebral body with mild loss of vertebral body height. There is no retropulsion at this level. No extension into the posterior elements is noted. T2 compression fracture is noted with 50% loss of vertebral body height and 3 mm of retropulsion. An acute appearing nondisplaced fracture of the spinous process of T2 is better depicted on cervical spine CT performed earlier today. There is mild edema adjacent to the spinous processes of T2-T6. Mild prevertebral edema within the upper thoracic spine is present. There are mild degenerative changes within the cervical spine. There is no definite T1 fracture. C2-C3: The central canal and neural foramen are patent. C3-C4: The central canal and neural foramen are patent. C4-C5: The central canal and neural foramen are patent. C5-C6: The central canal and neural foramen are patent. C6-C7: Posterior disc osteophyte complex effaces the ventral thecal sac. There is mild central canal stenosis. There is mild bilateral neural foraminal stenosis. C7-T1: Central canal and neural foramen are patent. IMPRESSION: 1. T2 compression fracture with 50% loss of vertebral body height and 3 mm of retropulsion. Associated marrow edema. This fracture is acute to subacute. Acute appearing nondisplaced fracture of the spinous process of T2, better depicted by CT. Mild prevertebral edema within the upper thoracic spine. 2. Mild edema adjacent to the spinous processes of T2-T6. This may reflect injury to the interspinous ligament. 3. Findings suggestive of an acute to subacute mild C7 compression fracture. 4. Normal cervical cord signal and caliber. 5. Mild central canal stenosis at C6-C7 due to posterior disc osteophyte complex. 6. Exam mildly compromised by motion artifact. ACT 112: Negative or not required by law. Electronically signed by: Ajit Young M.D. 06/20/2024 1:28 PM MDM Narrative See ED course. Impression & Plan Closed T2 fracture, Closed fracture of manubrium, Generalized weakness, Compression fracture of T1 vertebra, Compression fracture of C7 vertebra, Hypomagnesemia Discharge Plan Visit Data Chief Complaint: Fall Stated Complaint: Fall x2, Chest Pain ED Provider: Vinnie Vincent ED Midlevel Provider: Chano Garner Discharge Problem: Closed T2 fracture, Closed fracture of manubrium, Generalized weakness, Compression fracture of T1 vertebra, Compression fracture of C7 vertebra, Hypomagnesemia Patient Disposition: Being Evaluated by Hospitalist Discharge Instructions Interventions: ED Discharge Assessment Last Done: 06/20/24 12:46 Prescriptions Prescriptions: No Action sertraline 50 mg Tablet 150 mg PO HS Qty: 90 1RF naltrexone 50 mg tablet 50 mg PO DAILY Qty: 30 1RF acyclovir [Zovirax] 5 % ointment 1 applic topical QID Qty: 10 0RF Rx Instructions: apply until cold sores are resolved. multivitamin Tablet 1 tab PO DAILY Qty: 30 1RF hydroxyzine pamoate 100 mg Capsule 50 mg PO HS Qty: 30 0RF valacyclovir 1 gram Tablet 500 mg PO DAILY 14 Days Qty: 14 0RF alendronate 70 mg tablet 70 mg PO Q7D Qty: 4 1RF Rx Instructions: Mondays thiamine HCl (vitamin B1) 100 mg Tablet 100 mg PO QAM Qty: 30 0RF quetiapine 100 mg tablet 100 mg PO HS Qty: 30 0RF acetaminophen [Tylenol Extra Strength] 500 mg Tablet 1,000 mg PO Q8H PRN (Reason: pain or fever) Qty: 30 0RF Rx Instructions: max 3000mg in 24 hours magnesium oxide 400 mg (241.3 mg magnesium) Tablet 400 mg PO BID Qty: 60 1RF pantoprazole 40 mg tablet,delayed release (DR/EC) 40 mg PO BID Qty: 60 1RF lisinopril 10 mg Tablet 20 mg PO HS Qty: 60 1RF folic acid 1 mg tablet 1 mg PO DAILY 30 Days Qty: 30 0RF ondansetron 4 mg tablet,disintegrating 4 mg PO Q6H PRN (Reason: nausea and vomiting) Qty: 10 0RF cholecalciferol (vitamin D3) 125 mcg (5,000 unit) Tablet 125 mcg PO QAM Qty: 30 1RF Referrals Referrals: Emily Diehl PA-C [Primary Care Provider] - Discharge Problem: Closed fracture of manubrium Qualifiers: Encounter type: initial encounter Qualified Code(s): S22.21XA - Fracture of manubrium, initial encounter for closed fracture
[2024-06-20 08:44] LABS: Basophils # (auto) 0.04 K/uL (0.00-0.20); Basophils % (auto) 0.5 %; Eosinophils # (auto) 0.06 K/uL (0.00-0.50); Eosinophils % (auto) 0.8 %; Hematocrit (blood only) 32.6 % (37.0-47.0); Hemoglobin 10.5 g/dl (12.0-16.0); Immature Granulocytes # (auto) 0.03 K/uL (0.01-0.20); Immature Granulocytes % (auto) 0.4 %; Lymphocytes # (auto) 0.82 K/uL (1.20-3.40); Lymphocytes % (auto) 10.3 %; Mean Corpuscular Hemoglobin 29.7 pg (25.0-34.0); Mean Corpuscular Hgb Conc 32.2 g/dL (32.0-36.0); Mean Corpuscular Volume 92.4 fL (80.0-100.0); Monocytes # (auto) 0.91 K/uL (0.11-0.59); Monocytes % (auto) 11.4 %; Neutrophils # (auto) 6.09 K/uL (1.40-6.50); Neutrophils % (auto) 76.6 %; Platelet Count 179 K/uL (130-400); RDW Coefficient of Variation 16.3 % (11.5-14.5); RDW Standard Deviation 54.7 fL (36.4-46.3); Red Blood Count 3.53 M/uL (4.20-5.40); White Blood Count 7.95 K/ul (4.8-10.8)
--- NOTE | 2024-06-20 08:47 | XRay Report ---
XR chest 1V not portable CLINICAL HISTORY: Chest pain, nonspecific COMPARISON STUDY: Chest CT March 05, 2023. Chest radiograph January 23, 2024. FINDINGS: Lung volumes are normal. Old bilateral rib fractures. No pneumothorax or pleural effusion i s present. There is mild cardiomegaly. Mild interstitial thickening is present. No consolidation is i dentified. IMPRESSION: Cardiomegaly with suspected mild interstitial pulmonary edema. ACT 112: Negative or not required by law. Electronically signed by: Ajit Young M.D. 06/20/2024 8:46 AM
[2024-06-20 08:48] LABS: Appearance Urine Clear (Clear); Bacteria Urine Automated None Seen (None Seen); Bilirubin Urine Negative (Negative); Blood Urine Negative (Negative); Cast Urine Automated 0-2 /lpf (0-2); Color Urine Yellow; Epithelial Cell Urine Auto 0-2 /hpf (0-2); Glucose Urine UA Negative (Negative); Ketones Urine Trace (Negative); Leukocyte Esterase Urine 1+ (Negative); Nitrite Urine Negative (Negative); Protein Urine Negative (Negative); RBC Urine Automated 0-2 /hpf (0-2); Specific Gravity Urine 1.011 (1.000-1.030); Urobilinogen Urine Negative (Negative); pH Urine 5.5 (4.5-7.5)
[2024-06-20 09:01] LABS: Albumin Globulin Ratio 1.4 (0.9-2); Albumin Level 3.4 gm/dl (3.4-5.0); BUN Creatinine Ratio 15.9 (10-20); Bilirubin,Total 0.5 mg/dl (0.2-1.0); Calcium 8.5 mg/dl (8.6-10.3); Creatinine Clr Calc Pharmacy 82.1 ml/min; Globulin 2.4 gm/dl (2.5-4.0); Magnesium 1.4 mg/dl (1.7-2.4); Potassium 3.6 mmol/L (3.5-5.1); Total Protein 5.8 gm/dl (6.0-8.3)
[2024-06-20 09:11] LABS: Partial Thromboplastin Ratio 1.1; Partial Thromboplastin Time 30 Seconds (21-31)
[2024-06-20] MEDS: OPTIRAY 320 125ml IV ONE (09:46)
--- NOTE | 2024-06-20 10:05 | CT Scan Report ---
CT OF THE HEAD WITHOUT CONTRAST CLINICAL HISTORY: FALL, HEAD INJURY COMPARISON STUDY: Head CT, CTA of the head and MRI of the brain January 23, 2024. TECHNIQUE: Helical axial images of the head were obtained without IV contrast. Automated exposure con trol was utilized for the study. A dose lowering technique was utilized adhering to the principles o f ALARA. FINDINGS: No acute intracranial hemorrhage, midline shift or mass effect is present. White matter hyp odensities are unchanged and favor small vessel disease. The ventricular system is unremarkable. The basal cisterns are patent. No extra-axial collections are present. There are no findings to suggest a cute dural sinus thrombosis or acute territorial infarct. No significant calvarial abnormalities are present. Visualized portions of the sinuses and mastoid air cells are clear. IMPRESSION: 1. No acute intracranial findings. 2. No calvarial fractures. ACT 112: Negative or not required by law. Electronically signed by: Ajit Young M.D. 06/20/2024 10:02 AM
--- NOTE | 2024-06-20 10:23 | CT Scan Report ---
CT OF THE CERVICAL SPINE WITHOUT CONTRAST CLINICAL HISTORY: FALL, NECK PAIN COMPARISON STUDY: Cervical spine CT November 15, 2023. CTA of the neck January 23, 2024. TECHNIQUE: Helical axial images of the cervical spine were obtained without IV contrast. Sagittal a nd coronal reconstructions were viewed. Automated exposure control was utilized for the study. A do se lowering technique was utilized adhering to the principles of ALARA. FINDINGS: Alignment of the cervical spine is anatomic. There is mild loss of height of the superior e ndplate of C7 which is new since CT of January 23, 2024. Subtle cortical irregularity of the superior en dplate and anterior cortex of T1 is noted. A moderate T2 compression fracture with buckling of the an terior cortex and mild retropulsion is noted. There is also an acute acute appearing nondisplaced fra cture through the spinous process of T2. These findings are new since prior CT as well. IMPRESSION: 1. Mild C7 compression fracture which is age indeterminate but new since CT of January 23, 2024. 2. Moderate T2 compression fracture with mild retropulsion which is also age-indeterminate but new si nce CT of January 23, 2024. Given acute appearing fracture through the spinous process of T2, this fract ure is likely acute. 3. Mild age-indeterminate T1 compression deformity. ACT 112: Negative or not required by law. Electronically signed by: Ajit Young M.D. 06/20/2024 10:20 AM
--- NOTE | 2024-06-20 10:32 | CT Scan Report ---
CT ANGIOGRAPHY OF THE CHEST, PULMONARY EMBOLUS PROTOCOL CLINICAL HISTORY: STERNAL AND RIB PAIN, FALL, SOB, HYPOXIC COMPARISON STUDY: Chest radiograph performed earlier today. Chest CT March 05, 2023. TECHNIQUE: Following IV administration of Optiray, helical axial images of the chest were obtained ut ilizing the pulmonary embolus protocol. Maximal intensity projections and sagittal and coronal refor mats were viewed on an independent 3D workstation. IV contrast was administered without complication . Automated exposure control was utilized for the study. A dose lowering technique was utilized adh ering to the principles of ALARA. FINDINGS: No pulmonary emboli are identified. Dilatation of the central pulmonary arteries is again noted. The heart is moderately enlarged. There is no pericardial effusion. There is a moderate sized hiatal hernia. Postoperative findings within the stomach are present. There is no pneumothorax or ple ural effusion. Subpleural reticulation and groundglass opacities are similar to prior CT. There is no consolidation to suggest pneumonia. There are no suspicious pulmonary nodules. There is an acute min imally displaced manubrial fracture. Multiple old bilateral rib fractures are present. There are frac tures of C7, T1 and T2, better depicted on the thoracic spine CT which will be reported separately. IMPRESSION: 1. No pulmonary emboli identified. 2. Acute minimally displaced manubrial fracture. 3. C7, T1 and T2 fractures better depicted on the thoracic spine CT which will be reported separately . 4. Cardiomegaly. Dilatation of the central pulmonary arteries which raises the possibility of pulmona ry arterial hypertension. 5. Numerous old bilateral rib fractures. ACT 112: Negative or not required by law. Electronically signed by: Ajit Young M.D. 06/20/2024 10:29 AM
--- NOTE | 2024-06-20 10:37 | CT Scan Report ---
CT thoracic spine w con CLINICAL HISTORY: MID BACK PAIN S/P FALL COMPARISON STUDY: Chest CT March 05, 2023. TECHNIQUE: Axial images of the thoracic spine were obtained. Sagittal and coronal reformats were view ed. Automated exposure control was utilized for the study. A dose lowering technique was utilized ad jay jay to the principles of ALARA. FINDINGS: There is a T2 compression fracture with 50% loss of vertebral body height and minimal retro pulsion. This is new since CT of March 05, 2023. Mild associated paravertebral edema is present. The re is an acute appearing nondisplaced fracture through the spinous process of T2. Mild loss of height of C7 is noted as well as subtle cortical irregularity anterior cortex and superior endplate of T1. No additional spinal fractures are identified on this examination. Acute minimally displaced manubria l fracture is better depicted on the chest CT which will be reported separately. IMPRESSION: 1. T2 fracture with 50% loss of vertebral body height and minimal retropulsion. Given paravertebral edema, this fracture is likely acute. Acute appearing nondisplaced fracture through the spinous proce ss of T2. 2. Slight loss of height of C7 and subtle cortical irregularity of the superior endplate and anterior cortex of T1. These fractures are also likely acute. 3. Acute minimally displaced manubrial fracture better depicted on the chest CT which will be reporte d separately. ACT 112: Negative or not required by law. Electronically signed by: Ajit Young M.D. 06/20/2024 10:34 AM
[2024-06-20] MEDS: ACETAMINOPHEN 325 MG TAB PO STA (11:30)
[2024-06-20] MEDS: traMADol HCL 50 MG TABLET PO STA (11:31)
--- NOTE | 2024-06-20 12:00 | History & Physical Report ---
Date of Service June 20, 2024 Assessment & Plan (1) Fall: Plan: This is a 68-year-old female with past medical history of alcoholism, depression, s/p Tayler X and Y gastric bypass, iron deficiency anemia who presented to the emergency department on 06/20/2024 for recurrent falls. Fractures likely secondary to history of osteoporosis. - on alendronate weekly outpatient. Chest x-ray: Cardiomegaly with a suspected mild interstitial pulmonary edema Cervical spine CT: Mild T7 compression fracture which is age-indeterminate but new since CT of January 23, 2024. Moderate T2 compression fracture with mild retropulsion which is also age-indeterminate but new since CT of January 23, 2024. Given acute appearing fracture of the the spinous process of T2, fracture likely acute. Mild age-indeterminate T1 compression deformity Chest CTA negative for PE. Acute minimally displaced manubrial fracture. Cardiomegaly. Dilatation of the central pulmonary arteries which raises possibility of pulmonary arterial hypertension. Numerous old bilateral rib fractures Head CT no acute findings Thoracic spine CT: T2 fracture with 50% loss of vertebral body height and minimal retropulsion. Given paravertebral edema, fracture is likely acute. Acute. Nondisplaced fracture through the spinous process of T2. Slight loss of height of C7 and subtle cortical irregularity of the superior endplate of the anterior cortex of T1. Fracture is likely also acute. Acute minimally displaced manubrial fracture. CBC: Without leukocytosis., Hemoglobin 10.5 which is patient's baseline CMP: Electrolytes/renal function stable, mild elevation of AST of 49 and alk phos of 110, secondary to alcohol likely Urinalysis mildly positive Thoracic and cervical spine MRIs pending Orthospine/orthotics consulted Pain control scheduled Tylenol 3 times daily and tramadol as needed Calcitonin spray daily, alternate nares PT/OT consulted (2) Alcohol use disorder: Plan: On average patient drinks 3 rum and cokes nightly. no signs of withdrawal on admission Monitor CIWA Ativan prn if withdrawal symptoms start to occur Patient not interested in cessation. On naltrexone outpatient Added Folic acid and thiamine. Folic acid, thiamine labs pending. (3) Acute UTI: Plan: Urinalysis + for UTI UC pending Rocephin 2g IV q 24h pending culture results. tailor as necessary AM CBC, BMP, Magnesium (4) Compression fracture of C7 vertebra: Plan: see plan #1 (5) Compression fracture of T1 vertebra: Plan: see plan #1 (6) Compression fracture of T2 vertebra: Plan: see plan #1 (7) Closed fracture of manubrium: Plan: see plan #1 Plan Chronic conditions: HTN: lisinopril GERD: PPI BID Mental health: sertraline, quetiapine DVT prophylaxis: Lovenox Diet: regular Disposition: tele Code: full History of Present Illness Primary Care Provider: Emily Diehl This is a 68-year-old female with past medical history of alcoholism, depression, s/p Tayler X and Y gastric bypass, iron deficiency anemia who presented to the emergency department on 06/20/2024 for recurrent falls. The patient was seen and examined at bedside. She appeared comfortable at time of encounter. Patient states that the last few days she has had multiple falls. She states that she did strike her head the first fall a few days ago but has not fallen since. She attributes these to mechanical falls and states that her walker tends to get caught up in her carpeting. States that she lives alone. She reports that she has been having some chest/rib pain and back pain since the falls. She denies any shortness of breath, abdominal pain, nausea, vomiting, lower extremity edema. She denies any urinary symptoms including dysuria, frequency, or hematuria. She does admit to weakness. Patient states that after her last hospitalization in February 2024 she did go to an inpatient rehab facility for her alcohol use disorder. She states that she was there and after being discharged she was sober for approximately 50 days. She states that she drinks because she likes the taste of the alcohol. She states that she will drink rum and coke every night. Last drink was last evening. States that she will have on average 3 drinks a night and that they will last her a while. She states that she sips on them slowly. She states that she is not depressed or anxious. Patient states that she did not take any of her medications this morning. While in the emergency department she did have a workup including a chest x-ray that was negative. Cervical spine CT did reveal a mild T7 compression fracture that was age-indeterminate and a moderate T2 compression fracture with mild retropulsion which is age-indeterminate and a mild age-indeterminate T1 compression deformity. Chest CTA was negative for PE. Head CT was negative. Thoracic spine CT did reveal a T2 fracture with 50% loss of vertebral body, acutely minimally displaced manubrial fracture. Her alcohol level was negative. Her CBC was positive for anemia at 10.5 which was within her baseline. PT/INR stable and CMP stable. Urinalysis was mildly positive for UTI. Allergies Allergy/AdvReac Type Severity Reaction Status Date / Time No Known Allergies Allergy Verified 11/16/23 23:27 Home Medications Medication Instructions Recorded Confirmed Type acetaminophen 500 mg tablet 1,000 mg (2 x 500 mg) PO Q8H PRN 02/09/24 06/20/24 Rx (Tylenol Extra Strength) pain or fever #30 tabs alendronate 70 mg tablet 70 mg PO Q7D #4 tabs 02/09/24 Rx cholecalciferol (vitamin D3) 125 125 mcg PO QAM #30 tabs 02/09/24 Rx mcg (5,000 unit) tablet folic acid 1 mg tablet 1 mg PO DAILY 30 days #30 tabs 02/09/24 Rx hydroxyzine pamoate 100 mg capsule 50 mg (1/2 x 100 mg) PO HS #30 caps 02/09/24 Rx lisinopril 10 mg tablet 20 mg (2 x 10 mg) PO HS #60 tabs 02/09/24 Rx magnesium oxide 400 mg (241.3 mg 400 mg PO BID #60 tabs 02/09/24 Rx magnesium) tablet multivitamin 1 tab PO DAILY #30 tabs 02/09/24 Rx naltrexone 50 mg tablet 50 mg PO DAILY #30 tabs 02/09/24 Rx ondansetron 4 mg disintegrating 4 mg PO Q6H PRN nausea and 02/09/24 Rx tablet vomiting #10 tabs pantoprazole 40 mg tablet,delayed 40 mg PO BID #60 tabs 02/09/24 Rx release quetiapine 100 mg tablet 100 mg PO HS #30 tabs 02/09/24 Rx sertraline 50 mg tablet 150 mg (3 x 50 mg) PO HS #90 tabs 02/09/24 Rx thiamine HCl (vitamin B1) 100 mg 100 mg PO QAM #30 tabs 02/09/24 Rx tablet valacyclovir 1 gram tablet 500 mg (1/2 x 1 gram) PO DAILY 02/09/24 Rx Cold Sores 14 days #14 tabs acyclovir 5 % topical ointment topical 06/20/24 History acyclovir 5 % topical ointment topical 06/20/24 History acyclovir 5 % topical ointment topical PRN herpes 06/20/24 History acyclovir 5 % topical ointment 1 applic topical QID PRN Secretions 06/20/24 06/20/24 History (Zovirax) alendronate 70 mg tablet mg PO 06/20/24 History Past Med/Surg History Problem List (Updated 06/24/24 @ 06:20 by Kendall Winston MD) Cough Herpes labialis Acute metabolic encephalopathy Compression fracture of C7 vertebra Burst fracture of thoracic vertebra Hypomagnesemia (Acute) Compression fracture of T2 vertebra Compression fracture of T1 vertebra (Acute) Compression fracture of C7 vertebra (Acute) Generalized weakness (Acute) Closed fracture of manubrium (Acute) Closed T2 fracture (Acute) Aortic stenosis History of Tayler-en-Y gastric bypass Iron deficiency anemia Major depression Severe alcohol use disorder Acute UTI (Acute) Hypomagnesemia (Acute) Low back pain (Acute) Weakness (Acute) Acute kidney injury (Acute) Fall (Acute) Anemia (Acute) Acute chest wall pain (Acute) Starvation ketoacidosis Urinary tract infection due to Klebsiella species Nausea and vomiting History of gastric bypass (Acute) Anemia (Acute) MURALI (acute kidney injury) (Acute) Vomiting and diarrhea (Acute) Syncope (Acute) Hypotension (Acute) Esophageal dysmotility Poor nutrition (Acute) Encounter for pre-operative examination Alcohol intoxication (Acute) Syncope (Acute) Cholecystitis (Acute 01/09/14) Abdominal pain (Acute) Depression Medical History Hyponatremia GERD (gastroesophageal reflux disease) Alcohol use disorder Osteoarthritis Acid reflux Anemia History of depression Insomnia Hypertension Surgical History H/O gastric bypass History of section x 1 History of open reduction and internal fixation (ORIF) procedure right wrist--hardware in place History of total left hip replacement History of colonoscopy History of esophagogastroduodenoscopy (EGD) History of wisdom tooth extraction History of cholecystectomy H/O: hysterectomy Family History Other No family history of adverse response to anesthesia Social History (Reviewed 06/20/24 @ 08:47 by Chano Nagel Smoking Status: Never smoker Second Hand Exposure: No; Do You Dip or Chew Tobacco: No; Hx Alcohol Use: Yes Alcohol type: hard liquor Hx Substance Use: No Preferred Language: Kyrgyz Communication Ability: Effective Square Shear Operator Required: No Beliefs That Will Affect Care: None Current Living Situation: Personal Care Facility Current Living Situation Comment: apt Other Information That Helps Us Care for You: No Feels Safe at Home: Yes Safety Concerns: Feels Safe At This Time Assistive Devices: Cane and Walker Physical Exam Constitutional: WD/WN, vitals as above Eyes: PERRL, conjunctivae normal, anicteric sclerae Respiratory: normal respiratory effort, lungs clear to auscultation Cardiovascular: RRR, no murmur, no edema Psychiatric: A+Ox3, euthymic affect Results & Data Results & Data Vital Signs (Past 12 Hours) Vital Signs Temp Pulse Pulse Resp BP BP Pulse Ox 06/20/24 11:27 79 20 152/103 H 92 06/20/24 09:00 85 20 142/83 H 98 06/20/24 07:24 22 114/73 99 06/20/24 07:24 37.2 C 89 22 114/73 86 L 06/20/24 07:08 89 06/20/24 07:01 90 22 99 06/20/24 07:01 86 L O2 Del Method O2 Flow Rate 06/20/24 11:27 Room Air 06/20/24 09:00 Nasal Cannula 2 06/20/24 07:24 Nasal Cannula 2 06/20/24 07:24 Room Air 06/20/24 07:08 06/20/24 07:01 Nasal Cannula 2 06/20/24 07:01 Room Air, Nasal Cannula 0 Supervising Physician Co-Signing Physician Notes During face to face encounter, I obtained a history and physical examination, discussed plan of care with patient. I discussed plan of care with MICHAEL Vanegas. I reviewed above note and agree with it except for the following: Patient admitted for recurrent falls. Patient suffered multiple fractures. Will consult ortho and manage pain with medicine. PG Care Time/CCT Total # of Minutes Spent Total Time Spent with Patient: Total time spent is greater than 50% in coordination of care (as documented) at patient's floor/unit and/or counseling patient: Coding Level of Care Code 82086 INT INP/OBS CARE 3/75MIN Diagnoses Fall W19.XXXA Encounter type: initial encounter Alcohol use disorder F10.90 Acute UTI N39.0 Compression fracture of C7 vertebra, initial encounter S12.690A Encounter type: initial encounter Compression fracture of T1 vertebra, initial encounter S22.010A Encounter type: initial encounter Compression fracture of T2 vertebra, initial encounter S22.020A Encounter type: initial encounter Closed fracture of manubrium, initial encounter S22.21XA Encounter type: initial encounter (1) Fall Encounter type: initial encounter Qualified Code(s): W19.XXXA - Unspecified fall, initial encounter (4) Compression fracture of C7 vertebra Encounter type: initial encounter Qualified Code(s): S12.690A - Other displaced fracture of seventh cervical vertebra, initial encounter for closed fracture (5) Compression fracture of T1 vertebra Encounter type: initial encounter Qualified Code(s): S22.010A - Wedge compression fracture of first thoracic vertebra, initial encounter for closed fracture (6) Compression fracture of T2 vertebra Encounter type: initial encounter Qualified Code(s): S22.020A - Wedge compression fracture of second thoracic vertebra, initial encounter for closed fracture (7) Closed fracture of manubrium Encounter type: initial encounter Qualified Code(s): S22.21XA - Fracture of manubrium, initial encounter for closed fracture
[2024-06-20] MEDS: lisinopril 20 MG TAB PO STA (12:07)
--- NOTE | 2024-06-20 12:15 | Emergency Department Note ---
ED Visit Note I was consulted by the Advanced Practice Provider. I personally made/approved the management plan and take responsibility for the patient management. I performed a substantive portion of the visit. This includes the aspects of: -History/Physical -MDM .
--- OUTSIDE RECORDS SUMMARY | 2024-06-20 12:58 | External Medical Summary | Continuity of Care Document ---
Author Name Unknown Organization [facility] [id number] Address [address] [place] [phone] Care Team Providers Care Circulating Nurse Name Role Phone Emily Diehl Primary Care Physician [phone] Encounter [facility] [id number] Date(s): 04/14/24 - 04/14/24 [facility] 0 [place] [id number] [address] [place], [place] [id number] Encounter Diagnosis Left knee pain(Discharge Diagnosis) - 04/14/24 Hamstring tendonitis(Discharge Diagnosis) - 04/14/24 Bakers cyst(Discharge Diagnosis) - 04/14/24 Discharge Disposition: Home or Self Care Attending Physician: MD Mustapha, Rasheed Referring Physician: MD Vlad, Damian Silva Allergies, Adverse [...] 84 DAYS Start Date: 06/09/23 Status: Ordered alendronate 70 mg oral tablet Start: 03/03/24 8:29:00 AM EDT, 1 tab, PO, q7days, Disp# 12 tab, Refills: 0, Pharmacy: [facility]/pharmacy #[id number] Start Date: 03/03/24 Stop Date: 05/26/24 Status: Ordered cholecalciferol 25 mcg (1000 intl [...] Daily, Disp# 180 tab, Refills: 3, Pharmacy: [facility]/pharmacy #[id number] Start Date: 09/23/23 Stop Date: 09/17/24 Status: Ordered naltrexone 380 mg intramuscular injection, extended release Start: 03/30/24 2:10:00 PM EDT, 380 mg =, IM, [id number], Disp# 1 applicator, Refills: 11, Pharmacy: [facility] Start Date: 03/30/24 Status: Ordered ondansetron 4 mg oral tablet, disintegrating Start: 11/12/22 3:03:00 PM EDT Start Date: 11/12/22 Status: Ordered QUEtiapine 100 mg oral tablet Start: 04/28/23 11:57:00 AM EDT, 1 tab, PO, qhs, Disp# 30 tab, Refills: 5, Pharmacy: [facility]/pharmacy #[id number] Start Date: 04/28/23 Status: Ordered sertraline 100 mg oral tablet Start: 06/20/23 4:48:00 PM EST, 1 tab, PO, qhs, Disp# 30 tab, Refills: 11, Pharmacy: [facility]/pharmacy #[id number] Start Date: 06/20/23 Stop Date: 06/14/24 Status: Ordered thiamine Start: 06/09/23 4:03:00 PM EST, 200 Unknown, Unknown Start Date: 06/09/23 Status: Ordered Valtrex Start: 01/16/23 9:14:00 AM EDT, as needed for cold sores Start Date: 01/16/23 Status: Ordered Mental Status 04/14/24 Barriers to Learning one year None evide nt Mandatory Health Literacy Documentation Yes Health Literacy Communication Barriers N ever Primary Language Estonian Problem List Condition Confirmation Course Effective Dates [...] Active Dyspepsia Confirmed Active Sacroiliitis Confirmed Active Left knee pain Confirmed Active Peptic esophageal ulcer Confirmed Active Diagnosis Diagnosis Type Effective Dates Health Status Clinical Service Informant Left knee pain Discharge Diagnosis 04/14/24 Non-Specified Hamstring tendonitis Discharge Diagnosis 04/14/24 Non-Specified Bakers cyst Discharge Diagnosis 04/14/24 Non-Specified Procedures Procedure Date Related Diagnosis Body [...] Status Never smoked cigaret arun Sex Female Sex Representation Female (finding) Patient Care team information Care Team Personnel Name: HARSH Diehl, Emily Horton Position: Physician Asst Exmpt - Family Med Member Role: Primary Care Provider Address: [address] [place] [id number] Care Team Related Persons Name: ANA RAMEY
--- OUTSIDE RECORDS SUMMARY | 2024-06-20 12:59 | External Medical Summary | Continuity of Care Document ---
Author Name Unknown Organization [facility] [id number] [address] [place] [phone] Care Team Providers Care Lead Game Designer Name Role Phone Emily Diehl Primary Care Physician [phone] Encounter [facility] [id number] Date(s): 03/30/24 - 03/30/24 [facility] [address] [facility] [address] [address] [phone] Encounter Diagnosis Body mass index [BMI] 27.0-27.9, adult(Discharge Diagnosis) - 03/30/24 Severe alcohol use disorder(Discharge Diagnosis) - 03/30/24 Major depression(Discharge Diagnosis) - 03/30/24 Iron deficiency anemia(Discharge Diagnosis) - 03/30/24 Discharge Disposition: Home or Self Care Attending [...] q7days, Disp# 12 tab, Refills: 0, Pharmacy: [facility]/pharmacy #[id number] Start Date: 03/03/24 Stop Date: 05/26/24 [...] Daily, Disp# 180 tab, Refills: 3, Pharmacy: [facility]/pharmacy #[id number] Start Date: 09/23/23 Stop Date: 09/17/24 Status: Ordered naltrexone 380 mg intramuscular injection, extended release Start: 03/30/24 2:10:00 PM EDT, 380 mg =, IM, [id number], Disp# 1 applicator, Refills: 11, Pharmacy: [facility] Start Date: 03/30/24 Status: Ordered ondansetron 4 mg oral tablet, disintegrating Start: 11/12/22 3:03:00 PM EDT Start Date: 11/12/22 Status: Ordered QUEtiapine 100 mg oral tablet Start: 04/28/23 11:57:00 AM EDT, 1 tab, PO, qhs, Disp# 30 tab, Refills: 5, Pharmacy: [facility]/pharmacy #[id number] Start Date: 04/28/23 Status: Ordered sertraline 100 mg oral tablet Start: 06/20/23 4:48:00 PM EST, 1 tab, PO, qhs, Disp# 30 tab, Refills: 11, Pharmacy: [facility]/pharmacy #[id number] Start Date: 06/20/23 Stop Date: 06/14/24 Status: Ordered thiamine Start: 06/09/23 4:03:00 PM EST, 200 Unknown, Unknown Start Date: 06/09/23 Status: Ordered Valtrex Start: 01/16/23 9:14:00 AM EDT, as needed for cold sores Start Date: 01/16/23 Status: Ordered Mental Status 03/30/24 Barriers to Learning one year None evide nt Mandatory Health Literacy Documentation Yes Health Literacy Communication Barriers N ever Primary Language Wolof Problem List Condition Confirmation Course Effective Dates [...] Effective Dates Health Status Clinical Service Informant Severe alcohol use disorder Discharge Diagnosis 03/30/24 Non-Specified Body mass index [BMI] 27.0-27.9, adult Discharge Diagnosis 03/30/24 Non-Specified Major depression Discharge Diagnosis 03/30/24 Non-Specified Iron deficiency anemia Discharge Diagnosis 03/30/24 Non-Specified Procedures Procedure Date Related Diagnosis Body [...] recent to oldest [Reference Range]: 1 Height 158.1 cm (03/30/24 12:57 PM) Patient Weight 67.8 kg (03/30/24 12:57 PM) Body Mass Index 27.12 kg/m2 (03/30/24 12:57 PM) Temperature [36.5-37.9 DegC] 36.5 DegC (03/30/24 12:57 PM) Heart Rate 80 bpm (03/30/24 12:57 PM) Respiratory Rate 16 br/min (03/30/24 12:57 PM) Blood Pressure 88/60mmHg (03/30/24 12:57 PM) Cuff Pulse Pressure 28 mmHg (03/30/24 12:57 PM) Social History Social History Type Response Smoking Status Never smoked cigaret arun Sex Female Sex Representation Female (finding) Patient Care team information Care Team Personnel Name: HARSH Diehl, Emily Horton Position: Physician Asst Exmpt - Family Med Member Role: Primary Care Provider Address: [address] [address] Care Team Related Persons Name: ANA RAMEY
--- NOTE | 2024-06-20 13:30 | Magnetic Resonance Report ---
MRI OF THE CERVICAL SPINE WITHOUT CONTRAST CLINICAL HISTORY: C7 compression fracture COMPARISON: Cervical spine CTs November 15, 2023 and June 20, 2024. TECHNIQUE: Utilizing a 1.5 Rohini magnet and dedicated coil, multiplanar, multiecho imaging of the ce rvical spine was performed without IV contrast. FINDINGS: This exam is mildly compromised by motion artifact. Cervical cord signal and caliber are normal. Ther e is no intracanalicular mass or fluid collection. There is mild marrow edema within the C7 vertebral body with mild loss of vertebral body height. There is no retropulsion at this level. No extension i nto the posterior elements is noted. T2 compression fracture is noted with 50% loss of vertebral body height and 3 mm of retropulsion. An acute appearing nondisplaced fracture of the spinous process of T2 is better depicted on cervical spine CT performed earlier today. There is mild edema adjacent to t he spinous processes of T2-T6. Mild prevertebral edema within the upper thoracic spine is present. Th ere are mild degenerative changes within the cervical spine. There is no definite T1 fracture. C2-C3: The central canal and neural foramen are patent. C3-C4: The central canal and neural foramen are patent. C4-C5: The central canal and neural foramen are patent. C5-C6: The central canal and neural foramen are patent. C6-C7: Posterior disc osteophyte complex effaces the ventral thecal sac. There is mild central canal stenosis. There is mild bilateral neural foraminal stenosis. C7-T1: Central canal and neural foramen are patent. IMPRESSION: 1. T2 compression fracture with 50% loss of vertebral body height and 3 mm of retropulsion. Associate d marrow edema. This fracture is acute to subacute. Acute appearing nondisplaced fracture of the spin ous process of T2, better depicted by CT. Mild prevertebral edema within the upper thoracic spine. 2. Mild edema adjacent to the spinous processes of T2-T6. This may reflect injury to the interspinous ligament. 3. Findings suggestive of an acute to subacute mild C7 compression fracture. 4. Normal cervical cord signal and caliber. 5. Mild central canal stenosis at C6-C7 due to posterior disc osteophyte complex. 6. Exam mildly compromised by motion artifact. ACT 112: Negative or not required by law. Electronically signed by: Ajit Young M.D. 06/20/2024 1:28 PM
--- NOTE | 2024-06-20 13:47 | Magnetic Resonance Report ---
MRI OF THE THORACIC SPINE WITHOUT CONTRAST CLINICAL HISTORY: T1-T2 compression fracture COMPARISON: Thoracic spine CT June 20, 2024. Chest CT March 05, 2023. TECHNIQUE: Utilizing a 1.5 Rohini magnet and dedicated coil, multiplanar, multiecho imaging of the th oracic spine was performed without IV contrast. FINDINGS: Alignment of the thoracic spine is anatomic. Moderate T2 compression fracture is present wi th 50% loss of vertebral body height and minimal retropulsion. There is associated marrow edema withi n the T2 vertebral body. An acute appearing nondisplaced fractures through the spinous process of T2 is better depicted on the thoracic spine CT. There is mild edema adjacent to the spinous processes of T2-T6. There is mild upper thoracic prevertebral edema. Thoracic cord signal and caliber are normal. However, this exam is mildly compromised by motion artifact. There is no intracanalicular mass or fl uid collection. There is also a mild compression fracture of C7 which is acute to subacute. Possible T1 fracture on CT was artifactual. There are no additional thoracic spine fracture. Loss of height of the superior endplate of L2 without vertebral edema is chronic. IMPRESSION: 1. T2 compression fracture with 50% loss of vertebral body height and minimal retropulsion. Associate d marrow edema. This fracture is acute to subacute. Acute appearing nondisplaced fracture of the spin ous process of T2, better depicted by CT. Mild prevertebral edema within the upper thoracic spine. 2. Acute to subacute mild C7 compression fracture. 3. Mild edema adjacent to the spinous processes of T2-T6. This may represent injury to the interspino us ligament. 4. Exam mildly compromised by motion artifact. Normal thoracic cord signal and caliber. ACT 112: Negative or not required by law. Electronically signed by: Ajit Young M.D. 06/20/2024 1:45 PM
[2024-06-20] MEDS ORDERED: traMADol HCL 50 MG TABLET PO PRN (14:32)
[2024-06-20] MEDS: CALCITONIN SALMON NA 200 IU/AC 3.7 ML BTL SCH (15:39)
[2024-06-20] MEDS: traMADol HCL 50 MG TABLET PO PRN ×2 (15:40→20:49)
[2024-06-20] MEDS: ACETAMINOPHEN 500 MG TAB PO SCH (15:41)
[2024-06-20] MEDS: MAGNESIUM SULFATE / D5W 1 GM/100 ML BAG IV STA (15:43)
[2024-06-20] MEDS: cefTRIAXone SODIUM 2,000 MG/50 ML BAG IV SCH (16:26)
[2024-06-20] MEDS: ENOXAPARIN INJ 40 MG/0.4 ML SYR SQ SCH (20:52)
[2024-06-20] MEDS: hydrOXYzine HCl 25 MG TAB PO SCH (20:52)
[2024-06-20] MEDS: PANTOprazole 40 MG TAB PO SCH (21:01)
[2024-06-20] MEDS: MAGNESIUM OXIDE 400 MG TAB PO SCH (21:01)
[2024-06-20] MEDS: SERTRALINE HCL 50 MG TABLET PO SCH (21:02)
[2024-06-20] MEDS: QUEtiapine FUMARATE 100 MG TABLET PO SCH (21:02)
--- NOTE | 2024-06-21 05:40 | Electrocardiogram Report ---
Test Reason : Blood Pressure : */* mmHG Vent. Rate : 95 BPM Atrial Rate : 95 BPM P-R Int : 180 ms QRS Dur : 82 ms QT Int : 360 ms P-R-T Axes : 4 -19 31 degrees QTcB Int : 452 ms Normal sinus rhythm Normal ECG When compared with ECG of 27-Jan-2024 18:02, Nonspecific T wave abnormality, improved in Inferior leads Confirmed by Hector Conteh ([id number]) on 06/21/2024 5:39:48 AM Referred By: REFERRED SELF Confirmed By: Hector Conteh
[2024-06-21] MEDS: CHOLECALCIFEROL 125 MCG (5,000 UNITS) TAB PO SCH (07:59)
[2024-06-21] MEDS: MULTIVITAMIN TAB PO SCH (07:59)
[2024-06-21] MEDS: FOLIC ACID 1 MG TAB PO SCH (08:00)
[2024-06-21] MEDS: THIAMINE HCL 100 MG TAB PO SCH (08:00)
--- NOTE | 2024-06-21 08:28 | Orthopedic Consultation ---
Date of Service June 21, 2024 Assessment & Plan (1) Burst fracture of thoracic vertebra: (2) Compression fracture of C7 vertebra: Plan Patient admitted with multiple fractures, there is no definitive ligamentous injury. Based on fracture pattern on CT and MRI I feel she should be adequately treated with cervical thoracic orthosis. Order was placed for this brace yesterday however orthotics has not shown up to place it. Once we can get the brace placed I will send her for upright x-rays of the cervical thoracic junction to ensure that there is no movement. As long as she has no collapse we will plan for 3 months of treatment in cervical thoracic orthosis. Will need we ight lifting restrictions of 5 pounds History of Present Illness Reason for Consultation: Thoracic and Cervical Fractures Requesting Physician: . Attending Physician: Olga Eng MD Patient is a 68-year-old female with multiple falls over the past few years, has a history of alcohol abuse disorder, status post rehab however drinking. She had several falls at home, presented to the emergency department yesterday with upper thoracic back pain. She is neurologically intact. Imaging in the emergency department revealed a C7 compression fracture T2 burst fracture with minimal displacement. MRIs were obtained to evaluate stability and ligamentous injury. Allergies Allergy/AdvReac Type Severity Reaction Status Date / Time No Known Allergies Allergy Verified 11/16/23 23:27 Home Medications Medication Instructions Recorded Confirmed Type acetaminophen 500 mg tablet 1,000 mg (2 x 500 mg) PO Q8H PRN 02/09/24 06/20/24 Rx (Tylenol Extra Strength) pain or fever #30 tabs alendronate 70 mg tablet 70 mg PO Q7D #4 tabs 02/09/24 Rx cholecalciferol (vitamin D3) 125 125 mcg PO QAM #30 tabs 02/09/24 Rx mcg (5,000 unit) tablet folic acid 1 mg tablet 1 mg PO DAILY 30 days #30 tabs 02/09/24 Rx hydroxyzine pamoate 100 mg capsule 50 mg (1/2 x 100 mg) PO HS #30 caps 02/09/24 Rx lisinopril 10 mg tablet 20 mg (2 x 10 mg) PO HS #60 tabs 02/09/24 Rx magnesium oxide 400 mg (241.3 mg 400 mg PO BID #60 tabs 02/09/24 Rx magnesium) tablet multivitamin 1 tab PO DAILY #30 tabs 08/05/24 Rx naltrexone 50 mg tablet 50 mg PO DAILY #30 tabs 02/09/24 Rx ondansetron 4 mg disintegrating 4 mg PO Q6H PRN nausea and 02/09/24 Rx tablet vomiting #10 tabs pantoprazole 40 mg tablet,delayed 40 mg PO BID #60 tabs 02/09/24 Rx release quetiapine 100 mg tablet 100 mg PO HS #30 tabs 02/09/24 Rx sertraline 50 mg tablet 150 mg (3 x 50 mg) PO HS #90 tabs 02/09/24 Rx thiamine HCl (vitamin B1) 100 mg 100 mg PO QAM #30 tabs 02/09/24 Rx tablet valacyclovir 1 gram tablet 500 mg (1/2 x 1 gram) PO DAILY 02/09/24 Rx Cold Sores 14 days #14 tabs acyclovir 5 % topical ointment topical 06/20/24 History acyclovir 5 % topical ointment topical 06/20/24 History acyclovir 5 % topical ointment topical PRN herpes 06/20/24 History acyclovir 5 % topical ointment 1 applic topical QID PRN Secretions 06/20/24 06/20/24 History (Zovirax) alendronate 70 mg tablet mg PO 06/20/24 History Past Med/Surg History Problem List (Updated 06/21/24 @ 08:25 by Sanjiv Perez MD) Compression fracture of C7 vertebra Burst fracture of thoracic vertebra Hypomagnesemia (Acute) Compression fracture of T2 vertebra Compression fracture of T1 vertebra (Acute) Compression fracture of C7 vertebra (Acute) Generalized weakness (Acute) Closed fracture of manubrium (Acute) Closed T2 fracture (Acute) Aortic stenosis History of Tayler-en-Y gastric bypass Iron deficiency anemia Major depression Severe alcohol use disorder Acute UTI (Acute) Hypomagnesemia (Acute) Low back pain (Acute) Weakness (Acute) Acute kidney injury (Acute) Fall (Acute) Anemia (Acute) Acute chest wall pain (Acute) Starvation ketoacidosis Urinary tract infection due to Klebsiella species Nausea and vomiting History of gastric bypass (Acute) Anemia (Acute) MURALI (acute kidney injury) (Acute) Vomiting and diarrhea (Acute) Syncope (Acute) Hypotension (Acute) Esophageal dysmotility Poor nutrition (Acute) Encounter for pre-operative examination Alcohol intoxication (Acute) Syncope (Acute) Cholecystitis (Acute 01/09/14) Abdominal pain (Acute) Depression Medical History Hyponatremia GERD (gastroesophageal reflux disease) Alcohol use disorder Osteoarthritis Acid reflux Anemia History of depression Insomnia Hypertension Surgical History H/O gastric bypass History of section x 1 History of open reduction and internal fixation (ORIF) procedure right wrist--hardware in place History of total left hip replacement History of colonoscopy History of esophagogastroduodenoscopy (EGD) History of wisdom tooth extraction History of cholecystectomy H/O: hysterectomy Family History Other No family history of adverse response to anesthesia Social History Smoking Status: Never smoker Second Hand Exposure: No; Do You Dip or Chew Tobacco: No; Hx Alcohol Use: Yes Alcohol type: hard liquor Hx Substance Use: No Preferred Language: Latvian Communication Ability: Effective Renal Dietitian Required: No Beliefs That Will Affect Care: None Current Living Situation: Personal Care Facility Current Living Situation Comment: apt Other Information That Helps Us Care for You: No Feels Safe at Home: Yes Safety Concerns: Feels Safe At This Time Assistive Devices: Glasses Review of Systems All systems reviewed & are unremarkable except as noted in HPI & below. Physical Exam Constitutional: Well developed, appears stated age Psych: patient is coherent and answers questions appropriately, normal affect Eye: Normal gaze, no redness to sclera, pupils round and equal Pulm: Normal respiratory effort, no wheezing Cardiovascular: no significant peripheral edema, 2+ radial pulses Skin shows no rashes, lesions 5/5 muscle strength with testing of deltoids, wrist extensors, triceps, finger flexion, and hand intrinsics Sensation intact to light touch in the C5-T1 dermatomes bilaterally 2+ reflexes at biceps, triceps, and brachioradialis bilaterally Moves lower extremities with no difficulty Negative Ordoñez sign bilaterally Results & Data Results & Data Laboratory Results . Diagnostic Findings CT scan of the cervical spine available for review today and interpreted personally. Mild compression deformity inferior endplate of C7, facet joints are intact throughout the cervical spine, no sign of disc space widening, no sign of spinous process widening on CT scan. CT scan of the thoracic spine available for review today and interpreted personally. T2 burst fracture with extension of fracture into the posterior cortex, approximately 50% height loss, no evidence of spinous process gapping, facet joints are intact. Minimal retropulsion of the T2 vertebral body, T2 spinous process fracture located at the tip of the spinous process however nondisplaced MRI of the cervical spine evaluated and interpreted personally. Increased fluid signal in the C7 vertebral body consistent with acute or subacute fracture, ligament and disc space are intact, no retropulsion into the spinal canal. MRI of the thoracic spine available for review today and interpreted personally. There is no evidence of cord compression or significant canal compromise. There is some mild edema along interspinous ligament in the upper thoracic spine however the ligamentum flavum, posterior longitudinal ligament, facet joint capsules and supraspinous ligament appear intact without any definitive injury. PG Care Time/CCT Total # of Minutes Spent Total Time Spent with Patient: Total time spent is greater than 50% in coordination of care (as documented) at patient's floor/unit and/or counseling patient: Coding Level of Care Code 49431 IN/OBS CONSULT LVL 4,60M Diagnoses Closed burst fracture of thoracic vertebra, initial encounter S22.001A Encounter type: initial encounter Fracture type: closed Compression fracture of C7 vertebra, initial encounter S12.690A Encounter type: initial encounter (1) Burst fracture of thoracic vertebra Encounter type: initial encounter Fracture type: closed Qualified Code(s): S22.001A - Stable burst fracture of unspecified thoracic vertebra, initial encounter for closed fracture (2) Compression fracture of C7 vertebra Encounter type: initial encounter Qualified Code(s): S12.690A - Other displaced fracture of seventh cervical vertebra, initial encounter for closed fracture
[2024-06-21] MEDS ORDERED: MULTIVITAMIN TAB PO SCH (09:00)
[2024-06-21] MEDS ORDERED: oxyCODONE HCL IR 5 MG TAB (IMMEDIATE RELEASE) PO PRN (11:49)
[2024-06-21] MEDS: LIDOCAINE 5% 1 PATCH TD SCH (13:13)
--- NOTE | 2024-06-21 16:04 | XRay Report ---
XR thoracic spine 3V routine HISTORY: 68 years-old Female T2 burst fractrue, standing XR cervicothoracic jxn acute mid back pain COMPARISON: CT and MRI of thoracic spine studies 06/20/2024 TECHNIQUE: 3 views of the thoracic spine FINDINGS: Unchanged appearance of the T2 compression fracture which appears to be acute versus subacute without significant retropulsion. The C7 compression deformity is not well seen on the study. [id number]-[id number] te multilevel intervertebral disc space narrowing and facet arthrosis without additional acute fractu re or subluxation. IMPRESSION: Unchanged appearance of the acute to subacute-appearing T2 compression deformity, better seen on the prior CT and MRI exams. ACT 112: Negative or not required by law. The above report was generated using voice recognition software. It may contain grammatical, syntax o r spelling errors. Electronically signed by: Isaiah Yeung M.D. 06/21/2024 4:03 PM
--- NOTE | 2024-06-21 16:04 | XRay Report ---
XR cervical spine 2 or 3V CLINICAL HISTORY: standing COMPARISON STUDY: Cervical spine CT and MRI June 20, 2024. FINDINGS: Alignment of the cervical spine is anatomic. Mild loss of height of the superior endplate o f C7 is is similar to CT and MRI. T2 is largely obscured on this examination. There is moderate loss of height of the T2 vertebral body suggestive of acute fracture, better depicted on prior CT and MRI. Mild multilevel degenerative changes within the cervical spine are present. IMPRESSION: 1. Moderate loss of height of the T2 vertebral body suggestive of acute fracture, partially obscured on this exam. This fracture is better depicted on CT and MRI June 20, 2024. 2. Mild acute compression fracture of C7. ACT 112: Negative or not required by law. Electronically signed by: Ajit Young M.D. 06/21/2024 4:03 PM
--- NOTE | 2024-06-21 16:38 | Communication Note ---
Date of Service: June 21, 2024 Upright spine xrays with brace obtained, discussed with Dr. Perez who reviewed - ok to mobilize, wear brace at all times Ordered PT and OT
--- NOTE | 2024-06-21 16:55 | Hospitalist Progress Note ---
Date of Service June 21, 2024 Assessment & Plan (1) Compression fracture of T2 vertebra: Plan: 68 y/o woman with severe alcohol use disorder, depression, history of Tayler-en-Y gastric bypass who who presented to the emergency department on 06/20/2024 for recurrent falls. Found to have Age-related osteoporosis with pathologic fractures of multiple sites: C7 compression fracture, moderate acute T2 burst fracture with minimal displacement, T2 spinous process fracture, mild T7 & acute T1 compression fractures, minimally displaced manubrial fracture Ortho spine Dr. Perez consulted - discussed with him "plan for 3 months of treatment in cervical thoracic orthosis. Will need weight lifting restrictions of 5 pounds" maintained alignment on upright films wearing brace 06/21, ok for mobilization wearing brace at all times PT/OT ordered, she is open to rehab. discussed with care coord Pain control - not currently well controlled -scheduled APAP -calcitonin nasal 2-4 weeks -stopped tramadol and started oxycodone 5-10 mg q4h -bowel regimen (2) Fall: Plan: mechanical falls baseline unsteady gait, uses walker, lives alone in apartment with elevator reviewed meds - having some orthostatic lightheadedness she needs her sertraline and seroquel holding lisinopril and assess orthostatic BP (3) Alcohol use disorder: Plan: On average recently: 3 rum and cokes nightly. she has been taking oral naltrexone at home, currently held because needing pain medication for fractures no alcohol withdrawal symptoms Monitor CIWA Ativan prn if withdrawal symptoms start to occur Added Folic acid and thiamine. Folic acid, thiamine labs pending. She has noticed some increased forgetfulness. Will repeat TSH. B1 pending (was normal summer). B12 was adequate spring 2023 -ST for MOCA (4) Compression fracture of C7 vertebra: Plan: see plan #1 (5) Compression fracture of T1 vertebra: Plan: see plan #1 (6) Closed fracture of manubrium: Plan: see plan #1 (7) Acute UTI: Plan: Urinalysis + for UTI, started on ceftriaxone urine culture with more than 3 types of organisms probable skin amira unclear whether actually symptomatic but had multiple falls. probably just complete a 3-day course Plan Chronic conditions: HTN: lisinopril - held because she's been having frequent orthostatic lightheadedness and doesn't always take it when AM BP is low/normal. BP is variable GERD: PPI BID Depression: sertraline, quetiapine Iron deficiency anemia - Hg improved from 8.6 in february to 10.5. Recheck iron panel. Malnutrition history of Gastric bypass - albumin improved from 3.0 in february to 3.4 Hypomag - only got 1g IV on admission, probably still low, recheck BMP mag in AM DVT prophylaxis: Lovenox Discussed with ortho spine OK to mobilize, wear brace at all times Ordered PT/OT Admission and Anticipated Discharge Date Admission Date: June 20, 2024 Subjective Pain in midback and especially sternum - not well controlled on 75 mg tramadol Also pain R SI area Falls were mechanical - caught walker on wall or rug Had been taking po naltrexone at home Physical Exam 2 Physical Exam: PHYSICAL EXAMINATION Last 24h vital signs reviewed, see documentation in flowsheet General: no distress, sitting up in bed wearing thoracic/cervical brace HEENT: Normocephalic, atraumatic, pupils round and equal, sclerae anicteric, no conjunctival injection, moist mucus membranes Lungs: Normal respiratory effort. Clear to auscultation bilaterally. No RRW Heart: heart area covered by brace Abdomen: Soft, nondistended. Extremities: Warm, dry, well-perfused. No extremity edema. Neuro: Alert and oriented x 4, face symmetric, moves 4 extremities well Psych: Normal affect and behavior Results & Data Results & Data Vital Signs (Past 12 Hours) Vital Signs Temp Pulse Pulse Resp BP Pulse Ox O2 Del Method 06/21/24 15:27 97.7 F 86 18 128/83 95 Room Air 06/21/24 11:34 97.7 F 84 20 136/88 94 Room Air 06/21/24 07:49 97.7 F 81 20 130/85 93 Room Air 06/21/24 07:09 75 Laboratory Results 06/20/24 08:17 06/20/24 08:17 PG Care Time/CCT Total # of Minutes Spent Total Time Spent with Patient: Total time spent is greater than 50% in coordination of care (as documented) at patient's floor/unit and/or counseling patient: Coding Level of Care Code 52248 SUB INP/OBS CARE 3/50MIN Diagnoses Compression fracture of T2 vertebra, initial encounter S22.020A Encounter type: initial encounter Fall W19.XXXA Encounter type: initial encounter Alcohol use disorder F10.90 Compression fracture of C7 vertebra, initial encounter S12.690A Compression fracture of T1 vertebra, initial encounter S22.010A Closed fracture of manubrium, initial encounter S22.21XA Encounter type: initial encounter Acute UTI N39.0 (1) Compression fracture of T2 vertebra Encounter type: initial encounter Qualified Code(s): S22.020A - Wedge compression fracture of second thoracic vertebra, initial encounter for closed fracture (2) Fall Encounter type: initial encounter Qualified Code(s): W19.XXXA - Unspecified fall, initial encounter (6) Closed fracture of manubrium Encounter type: initial encounter Qualified Code(s): S22.21XA - Fracture of manubrium, initial encounter for closed fracture
[2024-06-21] MEDS ORDERED: lisinopril 20 MG TAB PO SCH (21:00)
[2024-06-21] MEDS: oxyCODONE HCL IR 5 MG TAB (IMMEDIATE RELEASE) PO PRN (21:07)
[2024-06-21] MEDS: guaiFENesin 600 MG TABCR PO SCH (21:08)
[2024-06-22] MEDS ORDERED: GABAPENTIN 1200MG ALCOHOL WITHDRAWAL LOAD PO STA (07:50)
[2024-06-22] MEDS: INFLUENZA VACC TS2024-25(65y+)/PF (IIV3) 0.5mL Syr IM ONE (08:59)
[2024-06-22] MEDS: GABAPENTIN 600 MG TAB PO ONE (09:01)
[2024-06-22 09:06] LABS: BUN Creatinine Ratio 12.5 (10-20); Calcium 9.3 mg/dl (8.6-10.3); Magnesium 1.5 mg/dl (1.7-2.4); Potassium 3.9 mmol/L (3.5-5.1)
[2024-06-22 09:21] LABS: Thyroid Stimulating Hormone 4.641 uIu/ml (0.300-4.500)
[2024-06-22 09:27] LABS: Ferritin 328.3 ng/ml (8-388)
[2024-06-22] MEDS: THIAMINE HCL 200 MG in SODIUM CHLORIDE 0.9% 50 ML IV SCH (09:34)
[2024-06-22 09:56] LABS: T4 Free Thyroxine 1.08 ng/dl (0.61-1.60)
[2024-06-22] MEDS: MAGNESIUM SULFATE / D5W 1 GM/100 ML BAG IV SCH (10:54)
[2024-06-22] MEDS: GABAPENTIN 600 MG TAB PO SCH (13:00)
--- NOTE | 2024-06-22 14:09 | Hospitalist Progress Note ---
Date of Service June 22, 2024 Assessment & Plan (1) Acute metabolic encephalopathy: Plan: suspect 2nd to #2 checked COVID/flu/RSV - negative ammonia - wnl CT head at admission - negative for acute findings VBG checked this evening - no acidosis or hypercapnia B12 early in 2023 - wnl TSH only marginally elevated this admission - doubt contributing to current mental status cannot rule out Wernicke's encephalopathy cannot rule out toxic effects from oxycodone/pain meds placed on gabapentin taper for #2 ativan prn per AWSS protocol stop oxycodone supportive care thiamine IV 200mg BID to cover for Wernicke's (2) Alcohol withdrawal: Plan: clinical picture c/w etoh withdrawal / possible early DTs she takes seroquel chronically 100mg "for sleep" placed on gabapentin protocol/taper ativan prn per AWSS protocol thiamine/folic acid supplementation add IV fluids (3) Compression fracture of T2 vertebra: Plan: presented with recurrent falls imaging with C7 compression fracture & T2 compression fracture appreciate ortho spine consult by Dr. Perez nonoperative Rx recommended 3 months of treatment in cervical thoracic orthosis no lifting over 5 pounds maintained alignment on upright x-rays wearing brace on 06/21 ok for mobilization wearing brace at all times PT/OT when well enough to participate due to confusion change oxycodone to hydrocodone prn cont calcitonin nasal 2-4 weeks vitamin D level - 33 (4) Compression fracture of C7 vertebra: Plan: see #3 above (5) Fall: Plan: due to alcohol intoxication/abuse ? B1 deficiency ? other factors ? (neuropathy, orthostasis, etc) falls led to C7 and T2 fractures CT head negative for ICH previous MRI brain 01/2024 wnl previous B12 level wnl (6) Alcohol use disorder: Plan: see #1, #2 above after her February 2024 hospitalization she went to inpatient etoh rehab unfortunately had a relapse some time this fall after getting home this was despite use of naltrexone daily (7) Closed fracture of manubrium: Plan: no specific Rx needed other than pain control (8) Acute UTI: Plan: u/a was suggestive of UTI but urine cx with contaminants today is day #3 of rocephin in light of confusion she still could have UTI thus, continue Rx plan 5-7 days of Rx then stop abx (9) Hypomagnesemia: Plan: still low on labs today repleted with 2 grams mag sulfate IV repeat level later in the day today was wnl (10) High anion gap metabolic acidosis: Plan: AG was elevated this am at 14 repeat BMP this afternoon wnl lactate negative may have been volume depleted IV fluids started due to poor PO intake Plan Chronic conditions: HTN: lisinopril currently on hold GERD: PPI BID Depression: sertraline, quetiapine Iron deficiency anemia - Hb improved from 8.6 in February to 10.5 this admission. She had Fe deficiency in February s/p IV venofer. Ferritin now >300 (had been 44) history of Gastric bypass DVT prophylaxis: Lovenox Admission and Anticipated Discharge Date Admission Date: June 20, 2024 Subjective tele overnight wnl patient resting in bed during the visit she had just tried to eat her meal she was quite confused, talking nonsensically and mentioning seeing things in the room (various people, etc) she had spilled multiple food items and beverages on her gown she was shaky and tremulous denied any neck or back pain admits to drinking at least 3 Rum & Cokes/day, sometimes 4-5 or more states that after attending a 30-day rehab program for her alcohol dependence she was sober for about a month then started drinking again Review of Systems Review of Systems: CV - denied chest pain pulm - denied dyspnea GI - no abd pain Physical Exam Physical Exam: gen - laying in bed, confused, tremulous, hallucinating neck - c-collar in place eyes - horizontal nystagmus present mouth - MM dry heart - borderline tachy, s1 s2, no murmur lungs - CTA b/l abd - soft NT ND BS+ ext - no edema, pulses 2+ b/l neuro - tremors present of arms; strength 5/5 x 4 exts psych - oriented to person, place only Results & Data Results & Data Vital Signs (Past 12 Hours) Vital Signs Temp Pulse Pulse Resp BP BP Pulse Ox 06/22/24 12:08 36.6 C 84 16 151/70 H 93 06/22/24 07:31 06/22/24 07:20 36.7 C 105 H 16 176/81 H 95 06/22/24 05:44 93 H 06/22/24 03:20 36.8 C 87 16 150/72 H 95 O2 Del Method 06/22/24 12:08 Room Air 06/22/24 07:31 Room Air 06/22/24 07:20 Room Air 06/22/24 05:44 06/22/24 03:20 Room Air Laboratory Results Laboratory Results - last 24 hr 06/22/24 06/22/24 06/22/24 07:18 08:30 14:41 VBG pH VBG pCO2 VBG pO2 VBG HCO3 VBG O2 Saturation VBG Base Excess Sodium 138 Potassium 3.9 Chloride 98 Carbon Dioxide 26 Anion Gap 14 H BUN 8 Creatinine 0.64 Est Cr Clr Drug Dosing 79.0 eGFR 96.20 BUN/Creatinine Ratio 12.5 Glucose 87 Lactate Calcium 9.3 Magnesium 1.5 L Iron 19 L Transferrin 144 L Ferritin 328.3 Ammonia 10.0 L 25-OH Vitamin D Total 33.5 TSH 4.641 H Free T4 1.08 SARS-CoV-2 (PCR) NEGATIVE Influenza Type A (PCR) Negative Influenza Type B (PCR) Negative RSV (RT-PCR) Negative 06/22/24 18:21 VBG pH 7.41 VBG pCO2 43 VBG pO2 71 VBG HCO3 27 VBG O2 Saturation 94.2 VBG Base Excess 2.2 Sodium 137 Potassium 3.8 Chloride 101 Carbon Dioxide 27 Anion Gap 9 BUN 7 Creatinine 0.60 Est Cr Clr Drug Dosing 84.3 eGFR 97.71 BUN/Creatinine Ratio 11.7 Glucose 80 Lactate 0.5 Calcium 8.3 L Magnesium 2.3 Iron Transferrin Ferritin Ammonia 25-OH Vitamin D Total TSH Free T4 SARS-CoV-2 (PCR) Influenza Type A (PCR) Influenza Type B (PCR) RSV (RT-PCR) PG Care Time/CCT Total # of Minutes Spent Total Time Spent with Patient: Total time spent is greater than 50% in coordination of care (as documented) at patient's floor/unit and/or counseling patient: Coding Level of Care Code 95398 SUB INP/OBS CARE 3/50MIN Diagnoses Acute metabolic encephalopathy G93.41 Alcohol withdrawal F10.930 Complication of substance-induced condition: uncomplicated Compression fracture of T2 vertebra, initial encounter S22.020A Encounter type: initial encounter Compression fracture of C7 vertebra, initial encounter S12.690A Fall W19.XXXA Encounter type: initial encounter Alcohol use disorder F10.90 Closed fracture of manubrium, initial encounter S22.21XA Encounter type: initial encounter Acute UTI N39.0 Hypomagnesemia E83.42 High anion gap metabolic acidosis E87.29 (2) Alcohol withdrawal Complication of substance-induced condition: uncomplicated Qualified Code(s): F10.930 - Alcohol use, unspecified with withdrawal, uncomplicated (3) Compression fracture of T2 vertebra Encounter type: initial encounter Qualified Code(s): S22.020A - Wedge compression fracture of second thoracic vertebra, initial encounter for closed f racture (5) Fall Encounter type: initial encounter Qualified Code(s): W19.XXXA - Unspecified fall, initial encounter (7) Closed fracture of manubrium Encounter type: initial encounter Qualified Code(s): S22.21XA - Fracture of manubrium, initial encounter for closed fracture
[2024-06-22] MEDS: NSS + 20MEQ KCL 20 MEQ/1,000 ML BAG IV SCH (14:38)
[2024-06-22 15:48] LABS: Influenza A virus by PCR Negative (Neg); Influenza B virus by PCR Negative (Neg); RSV by PCR Negative (Neg); SARS CoV2 RNA(COVID-19) Ceph NEGATIVE (Negative)
[2024-06-22] MEDS: LORazepam 1 MG TAB PO PRN (16:26)
[2024-06-22 18:38] LABS: Base Excess VBG 2.2 mEq/L; HCO3 VBG 27 mmol/L; Oxygen Saturation VBG 94.2 %; PCO2 VBG 43 mmHg (38-50); PO2 VBG 71 mmHg; pH VBG 7.41 (7.36-7.41)
[2024-06-22 19:02] LABS: BUN Creatinine Ratio 11.7 (10-20); Calcium 8.3 mg/dl (8.6-10.3); Creatinine Clr Calc Pharmacy 84.3 ml/min; Magnesium 2.3 mg/dl (1.7-2.4); Potassium 3.8 mmol/L (3.5-5.1)
[2024-06-23] MEDS: GABAPENTIN 600 MG TAB PO SCH (06:15)
[2024-06-23 09:16] LABS: BUN Creatinine Ratio 12.1 (10-20); Calcium 8.3 mg/dl (8.6-10.3); Creatinine Clr Calc Pharmacy 77.4 ml/min; Potassium 4.2 mmol/L (3.5-5.1)
--- NOTE | 2024-06-23 15:51 | XRay Report ---
XR chest 1V portable CLINICAL HISTORY: L basilar rales; pneumonia? COMPARISON STUDY: Chest radiograph and chest CT June 20, 2024. FINDINGS: Back immobilizer and neck brace are incidentally noted. There is no pneumothorax or pleural effusion. Cardiomegaly is again noted. There is a hiatal hernia. Old bilateral rib fractures are pre sent. There is no consolidation to suggest pneumonia. There is no evidence for pulmonary edema. Linea r left basilar densities favor atelectasis. IMPRESSION: 1. No consolidation to suggest pneumonia. Minimal linear left basilar densities suggestive of atelect asis. 2. Mild cardiomegaly. No radiographic evidence for pulmonary edema. ACT 112: Negative or not required by law. Electronically signed by: Ajit Young M.D. 06/23/2024 3:50 PM
[2024-06-23] MEDS: ACYCLOVIR 5% OINT 15 GM TUBE EXT SCH (16:25)
--- NOTE | 2024-06-23 17:53 | Hospitalist Progress Note ---
Date of Service June 23, 2024 Assessment & Plan (1) Acute metabolic encephalopathy: Plan: suspect 2nd to #2 checked COVID/flu/RSV - negative ammonia - wnl CT head at admission - negative for acute findings VBG checked this evening - no acidosis or hypercapnia B12 early in 2023 - wnl TSH only marginally elevated this admission - doubt contributing to current mental status cannot rule out Wernicke's encephalopathy thus remains on thiamine IV cannot rule out toxic effects from oxycodone/pain meds - thus oxy was stopped cont gabapentin taper for #2 ativan prn per AWSS protocol supportive care to ensure no primary [employer] issue (stroke, encephalitis in light of HSV cold sores, etc) will obtain MRI brain w/ and w/o contrast (2) Alcohol withdrawal: Plan: clinical picture c/w etoh withdrawal / DTs she takes seroquel chronically 100mg "for sleep" placed on gabapentin protocol/taper ativan prn per AWSS protocol thiamine/folic acid supplementation cont IV fluids MRI brain to ensure no other process present (3) Compression fracture of T2 vertebra: Plan: presented with recurrent falls imaging with C7 compression fracture & T2 compression fracture appreciate ortho spine consult by Dr. Perez nonoperative Rx recommended 3 months of treatment in cervical thoracic orthosis no lifting over 5 pounds maintained alignment on upright x-rays wearing brace on 06/21 ok for mobilization wearing brace at all times PT/OT when well enough to participate cont hydrocodone prn cont calcitonin nasal 2-4 weeks vitamin D level - 33 (4) Compression fracture of C7 vertebra: Plan: see #3 above (5) Fall: Plan: due to alcohol intoxication/abuse ? B1 deficiency ? other factors ? (neuropathy, orthostasis, etc) falls led to C7 and T2 fractures CT head negative for ICH previous MRI brain 01/2024 wnl previous B12 level wnl obtaining repeat MRI brain today (6) Alcohol use disorder: Plan: see #1, #2 above after her February 2024 hospitalization she went to inpatient etoh rehab unfortunately had a relapse some time this fall after getting home this was despite use of naltrexone daily (7) Closed fracture of manubrium: Plan: no specific Rx needed other than pain control (8) Acute UTI: Plan: u/a was suggestive of UTI but urine cx with contaminants today is day #4 of rocephin in light of confusion she still could have UTI thus, continue Rx plan 5-7 days of Rx then stop abx (9) Hypomagnesemia: Plan: repleted resolved (10) High anion gap metabolic acidosis: Plan: resolved with IV Fluids (11) Herpes labialis: Plan: start zovirax QID MRI brain - r/o findings that would suggest encephalitis from HSV (but highly doubt such) (12) Cough: Plan: obtain cxr, r/o developing pneumonia process Plan Chronic conditions: HTN: resume lisinopril GERD: PPI BID Depression: sertraline, quetiapine Iron deficiency anemia - Hb improved from 8.6 in February to 10.5 this admission. She had Fe deficiency in February s/p IV venofer. Ferritin now >300 (had been 44) history of Gastric bypass DVT prophylaxis: Lovenox Admission and Anticipated Discharge Date Admission Date: June 20, 2024 Subjective still very confused still having visual hallucinations it remains very hard to have a coherent conversation with her she complains of neck pain she complains of pain behind the right ear she has a mild cough but denies dyspnea denies abd pain appetite remains poor-fair last stool 06/22/24 AM per nursing documentation tele overnight wnl Review of Systems Review of Systems: neuro - denies headache HENT - cold sore on lip CV - no chest pain pulm - no dyspnea GI - no abd pain Physical Exam Physical Exam: gen - laying in bed, confused, restless - constantly shifting around, fidgeting, playing with monitor leads; mild tremors, hallucinating neck - c-collar in place eyes - horizontal nystagmus present mouth - MM more moist today; cold sore lower left lip heart - RRR, s1 s2, no murmur lungs - CTA b/l abd - soft NT ND BS+ ext - no edema, pulses 2+ b/l neuro - minimal tremors present of arms; strength 5/5 x 4 exts psych - oriented to person, place only - thinks it is May Results & Data Results & Data Vital Signs (Past 12 Hours) Vital Signs Temp Pulse Pulse Resp BP BP Pulse Ox 06/23/24 15:57 37.1 C 85 16 159/69 H 91 06/23/24 13:28 94 H 06/23/24 11:18 36.7 C 86 16 148/83 H 92 06/23/24 07:59 36.6 C 80 18 147/83 H 91 12/18/24 07:40 O2 Del Method 06/23/24 15:57 Room Air 06/23/24 13:28 06/23/24 11:18 Room Air 06/23/24 07:59 Room Air 06/23/24 07:40 Room Air Laboratory Results Laboratory Results - last 24 hr 06/23/24 06/23/24 08:28 14:54 Sodium 140 Potassium 4.2 Chloride 103 Carbon Dioxide 27 Anion Gap 10 BUN 8 Creatinine 0.66 Est Cr Clr Drug Dosing 77.4 eGFR 95.49 BUN/Creatinine Ratio 12.1 Glucose 65 L POC Glucose 112 H Calcium 8.3 L PG Care Time/CCT Total # of Minutes Spent Total Time Spent with Patient: Total time spent is greater than 50% in coordination of care (as documented) at patient's floor/unit and/or counseling patient: Coding Level of Care Code 00860 SUB INP/OBS CARE 3/50MIN Diagnoses Acute metabolic encephalopathy G93.41 Alcohol withdrawal F10.930 Complication of substance-induced condition: uncomplicated Compression fracture of T2 vertebra, initial encounter S22.020A Encounter type: initial encounter Compression fracture of C7 vertebra, initial encounter S12.690A Fall W19.XXXA Encounter type: initial encounter Alcohol use disorder F10.90 Closed fracture of manubrium, initial encounter S22.21XA Encounter type: initial encounter Acute UTI N39.0 Hypomagnesemia E83.42 High anion gap metabolic acidosis E87.29 Herpes labialis B00.1 Cough R05.9 (2) Alcohol withdrawal Complication of substance-induced condition: uncomplicated Qualified Code(s): F10.930 - Alcohol use, unspecified with withdrawal, uncomplicated (3) Compression fracture of T2 vertebra Encounter type: initial encounter Qualified Code(s): S22.020A - Wedge compression fracture of second thoracic vertebra, initial encounter for closed fracture (5) Fall Encounter type: initial encounter Qualified Code(s): W19.XXXA - Unspecified fall, initial encounter (7) Closed fracture of manubrium Encounter type: initial encounter Qualified Code(s): S22.21XA - Fracture of manubrium, initial encounter for closed fracture
[2024-06-23] MEDS: D5W AND 1/2NSS 1,000 ML IV SCH (19:53)
[2024-06-24] MEDS: GADOBUTROL 65ML VIAL IV ONE (00:43)
--- NOTE | 2024-06-24 01:42 | Magnetic Resonance Report ---
EXAM: MR brain wo/w con CLINICAL HISTORY: r/o stroke. patient very confused. history of recent falls. herpes labialis. patient moved throughout study. best scans possible at this time. injected 6.5cc gadavist through existing iv right arm uneventful. room 278-1 CT head 06/20 TECHNIQUE: Multisequential and multiplanar images of the brain were submitted for review without and with contrast. COMPARISON: 01/23/2024 19:31:18 [employer] FINDINGS: Generalized parenchymal atrophy is appreciated. Scattered foci of increased T2/FLAIR signal abnormality are identified within the bilateral periventricular and subcortical white matter, and are most commonly associated with chronic small vessel ischemic disease. No focal parenchymal lesions are seen. No intracranial hemorrhage, mass effect, midline shift, extra-axial collection, or hydrocephalus is identified. Ventricles, sulci, and basal cisterns are symmetric and normal in size and configuration. Midline structures including the pituitary gland, corpus callosum, pineal region, and brainstem are unremarkable. The craniovertebral junction is within normal limits. No calvarial abnormalities are identified. The paranasal sinuses and mastoid air cells are clear. Orbital structures are unremarkable. Appropriate flow voids are present in the visualized intracranial vessels. IMPRESSION: 1. No acute ischemia, space occupying mass, or other acute intracranial pathology is demonstrated. 2. Chronic small vessel ischemic disease. 3. Diffuse cerebral atrophy. No other new interval abnormality since prior study. Electronically signed by Tomas Alegre 06-24-2024 01:42 AM
[2024-06-24 07:43] LABS: Hematocrit (blood only) 32.4 % (37.0-47.0); Mean Corpuscular Hemoglobin 30.7 pg (25.0-34.0); Mean Corpuscular Volume 90.5 fL (80.0-100.0); Mean Platelet Volume 8.6 fL (9.4-12.4); Platelet Count 228 K/uL (130-400); RDW Standard Deviation 52.8 fL (36.4-46.3); Red Blood Count 3.58 M/uL (4.20-5.40); White Blood Count 5.76 K/ul (4.8-10.8)
[2024-06-24 08:08] LABS: BUN Creatinine Ratio 12.3 (10-20); Calcium 8.4 mg/dl (8.6-10.3); Creatinine Clr Calc Pharmacy 89.6 ml/min
[2024-06-24] MEDS: lisinopril 10 MG TAB PO SCH (08:49)
[2024-06-24] MEDS: HYDROCODONE/ACETAMOPHEN 5/325MG TAB PO PRN (08:51)
[2024-06-24] MEDS: GABAPENTIN 600 MG TAB PO SCH (09:00)
[2024-06-24] MEDS ORDERED: Ativan PO Alcohol Withdrawal--Active Protocol PO PRN (17:27)
[2024-06-24] MEDS ORDERED: LORazepam 1 MG TAB PO PRN (17:27)
[2024-06-24] MEDS: LORazepam 1 MG TAB PO PRN (18:17)
--- NOTE | 2024-06-24 20:53 | Hospitalist Progress Note ---
Date of Service June 24, 2024 Assessment & Plan (1) Acute metabolic encephalopathy: Plan: 2nd to #2 slowly improving checked COVID/flu/RSV - negative ammonia - wnl CT head at admission - negative for acute findings VBG - no acidosis or hypercapnia B12 early in 2023 - wnl TSH only marginally elevated this admission - doubt contributing to current mental status MRI brain negative for acute or subacute CVA cxr w/o pneumonia cannot rule out Wernicke's encephalopathy thus remains on thiamine IV cannot rule out toxic effects from oxycodone/pain meds - thus oxy was stopped cont gabapentin taper for #2 ativan prn per AWSS protocol supportive care (2) Alcohol withdrawal: Plan: clinical picture c/w etoh withdrawal / DTs slowly improving she takes seroquel chronically 100mg "for sleep" rather than a primary thought disorder, bipolar, etc. remains on gabapentin taper ativan prn per AWSS protocol thiamine/folic acid supplementation supportive care (3) Compression fracture of T2 vertebra: Plan: presented with recurrent falls imaging with C7 compression fracture & T2 compression fracture appreciate ortho spine consult by Dr. Perez nonoperative Rx recommended 3 months of treatment in cervical thoracic orthosis no lifting over 5 pounds maintained alignment on upright x-rays wearing brace on 06/21 ok for mobilization wearing brace at all times PT/OT when well enough to participate cont hydrocodone prn cont calcitonin nasal 2-4 weeks vitamin D level - 33 (4) Compression fracture of C7 vertebra: Plan: see #3 above (5) Fall: Plan: due to alcohol intoxication/abuse ? B1 deficiency ? other factors ? (neuropathy, orthostasis, etc) falls led to C7 and T2 fractures CT head negative for ICH previous MRI brain 01/2024 wnl and repeat MRI brain negative for acute findings previous B12 level wnl cont thiamine 200mg IV BID (6) Alcohol use disorder: Plan: see #1, #2 above after her February 2024 hospitalization she went to inpatient etoh rehab unfortunately had a relapse some time this fall after getting home this was despite use of naltrexone daily (7) Closed fracture of manubrium: Plan: no specific Rx needed other than pain control (8) Acute UTI: Plan: u/a was suggestive of UTI but urine cx with contaminants today is day #5 of rocephin in light of confusion she still could have had UTI will stop abx after today's dose (9) Hypomagnesemia: Plan: repleted resolved (10) High anion gap metabolic acidosis: Plan: resolved with IV Fluids (11) Herpes labialis: Plan: start zovirax QID MRI brain w/o findings that would suggest encephalitis from HSV (and mental status is slowly improving) (12) Cough: Plan: cxr w/o pneumonia monitor Plan Chronic conditions: HTN: cont lisinopril GERD: PPI BID Depression: sertraline, quetiapine Iron deficiency anemia - Hb improved from 8.6 in February to 10.5 this admission. She had Fe deficiency in February s/p IV venofer. Ferritin now >300 (had been 44); H/H stable history of Gastric bypass status - noted; cont PPI DVT prophylaxis: Lovenox daughter Silvia updated by phone while I was on rounds questions answered dispo - physical rehab ?? Admission and Anticipated Discharge Date Admission Date: June 20, 2024 Subjective patient reports less confusion and less hallucinations she is still scoring on AWSS about 7-9, however she remains tremulous but not as severe as previous she was a bit agitated during the visit, stating she "wants to get up and why won't they let me walk" appetite is fair at best she was more oriented today - knew she was at [facility], that it was June 2024, but could not tell me the day of the week during the visit she said "my daughter Silvia wants to have a family meeting" while saying this she got her cell phone out and called her daughter Silvia she put Silvia on speaker phone I answered Silvia's questions, discussed problems & treatment plan, etc. Review of Systems Review of Systems: neuro - no headache; no numbness of any limb especially the arms cv - no chest pain pulm - no dyspnea GI - no abd pain; last BM 06/22 Physical Exam Physical Exam: gen - looks better today; a little agitated, but more oriented today; no active hallucinations neck - c-collar in place eyes - horizontal nystagmus still present mouth - MMM; cold sore lower left lip heart - RRR, s1 s2, no murmur lungs - CTA b/l abd - soft NT ND BS+ ext - no edema, pulses 2+ b/l neuro - minimal tremors present of arms; strength 5/5 x 4 exts psych - oriented to person, place only, month, year (not day of week) Results & Data Results & Data Vital Signs (Past 12 Hours) Vital Signs Temp Pulse Pulse Resp BP BP Pulse Ox 06/24/24 19:27 36.6 C 81 16 153/92 H 94 06/24/24 17:40 36.5 C 73 20 161/95 H 96 06/24/24 15:29 36.6 C 79 18 145/89 H 93 06/24/24 13:23 87 06/24/24 11:54 36.6 C 75 18 152/92 H 93 O2 Del Method 06/24/24 19:27 Room Air 06/24/24 17:40 Room Air 06/24/24 15:29 Room Air 06/24/24 13:23 06/24/24 11:54 Room Air Laboratory Results Laboratory Results - last 24 hr 06/24/24 06:55 WBC 5.76 RBC 3.58 L Hgb 11.0 L Hct 32.4 L MCV 90.5 MCH 30.7 MCHC 34.0 RDW Std Deviation 52.8 H RDW Coeff of Cate 16.0 H Plt Count 228 MPV 8.6 L Sodium 137 Potassium 4.0 Chloride 102 Carbon Dioxide 28 Anion Gap 7 BUN 7 Creatinine 0.57 L Est Cr Clr Drug Dosing 89.6 eGFR 98.93 BUN/Creatinine Ratio 12.3 Glucose 102 H Calcium 8.4 L Diagnostic Findings Brain MRI 06/23/24 14:49 EXAM: MR brain wo/w con CLINICAL HISTORY: r/o stroke. patient very confused. history of recent falls. herpes labialis. patient moved throughout study. best scans possible at this time. injected 6.5cc gadavist through existing iv right arm uneventful. room 278-1 CT head 06/20 TECHNIQUE: Multisequential and multiplanar images of the brain were submitted for review without and with contrast. COMPARISON: 01/23/2024 19:31:18 GRAVITY PROSPECTING OBSERVER FINDINGS: Generalized parenchymal atrophy is appreciated. Scattered foci of increased T2/FLAIR signal abnormality are identified within the bilateral periventricular and subcortical white matter, and are most commonly associated with chronic small vessel ischemic disease. No focal parenchymal lesions are seen. No intracranial hemorrhage, mass effect, midline shift, extra-axial collection, or hydrocephalus is identified. Ventricles, sulci, and basal cisterns are symmetric and normal in size and configuration. Midline structures including the pituitary gland, corpus callosum, pineal region, and brainstem are unremarkable. The craniovertebral junction is within normal limits. No calvarial abnormalities are identified. The paranasal sinuses and mastoid air cells are clear. Orbital structures are unremarkable. Appropriate flow voids are present in the visualized intracranial vessels. IMPRESSION: 1. No acute ischemia, space occupying mass, or other acute intracranial pathology is demonstrated. 2. Chronic small vessel ischemic disease. 3. Diffuse cerebral atrophy. No other new interval abnormality since prior study. Electronically signed by Tomas Alegre 06-24-2024 01:42 AM Chest X-Ray 06/23/24 14:49 XR chest 1V portable CLINICAL HISTORY: L basilar rales; pneumonia? COMPARISON STUDY: Chest radiograph and chest CT June 20, 2024. FINDINGS: Back immobilizer and neck brace are incidentally noted. There is no pneumothorax or pleural effusion. Cardiomegaly is again noted. There is a hiatal hernia. Old bilateral rib fractures are present. There is no consolidation to suggest pneumonia. There is no evidence for pulmonary edema. Linear left basilar densities favor atelectasis. IMPRESSION: 1. No consolidation to suggest pneumonia. Minimal linear left basilar densities suggestive of atelectasis. 2. Mild cardiomegaly. No radiographic evidence for pulmonary edema. ACT 112: Negative or not required by law. Electronically signed by: Ajit Young M.D. 06/23/2024 3:50 PM PG Care Time/CCT Total # of Minutes Spent Total Time Spent with Patient: Total time spent is greater than 50% in coordination of care (as documented) at patient's floor/unit and/or counseling patient: Coding Level of Care Code 65696 SUB INP/OBS CARE 2/35MIN Diagnoses Acute metabolic encephalopathy G93.41 Alcohol withdrawal F10.930 Complication of substance-induced condition: uncomplicated Compression fracture of T2 vertebra, initial encounter S22.020A Encounter type: initial encounter Compression fracture of C7 vertebra, initial encounter S12.690A Fall W19.XXXA Encounter type: initial encounter Alcohol use disorder F10.90 Closed fracture of manubrium, initial encounter S22.21XA Encounter type: initial encounter Acute UTI N39.0 Hypomagnesemia E83.42 High anion gap metabolic acidosis E87.29 Herpes labialis B00.1 Cough R05.9 (2) Alcohol withdrawal Complication of substance-induced condition: uncomplicated Qualified Code(s): F10.930 - Alcohol use, unspecified with withdrawal, uncomplicated (3) Compression fracture of T2 vertebra Encounter type: initial encounter Qualified Code(s): S22.020A - Wedge compression fracture of second thoracic vertebra, initial encounter for closed fracture (5) Fall Encounter type: initial encounter Qualified Code(s): W19.XXXA - Unspecified fall, initial encounter (7) Closed fracture of manubrium Encounter type: initial encounter Qualified Code(s): S22.21XA - Fracture of manubrium, initial encounter for closed fracture
[2024-06-25 05:23] LABS: BUN Creatinine Ratio 13.6 (10-20); Calcium 8.5 mg/dl (8.6-10.3); Creatinine Clr Calc Pharmacy 86.5 ml/min; Magnesium 1.7 mg/dl (1.7-2.4); Potassium 3.9 mmol/L (3.5-5.1)
[2024-06-25] MEDS: LORazepam 1 MG TAB PO PRN (12:14)
[2024-06-25] MEDS: lisinopril 10 MG TAB PO ONE (12:14)
--- NOTE | 2024-06-25 19:20 | Hospitalist Progress Note ---
Date of Service June 25, 2024 Assessment & Plan (1) Fall: Plan: (1) Acute metabolic encephalopathy: Plan: 2nd to #2 resolved checked COVID/flu/RSV - negative ammonia - wnl CT head at admission - negative for acute findings VBG - no acidosis or hypercapnia B12 early in 2023 - wnl TSH only marginally elevated this admission - doubt contributing to current mental status MRI brain negative for acute or subacute CVA cxr w/o pneumonia cannot rule out Wernicke's encephalopathy thus remains on thiamine IV; can change this to PO tomorrow am cannot rule out toxic effects from oxycodone/pain meds - thus oxy was stopped finished gabapentin taper for #2 ativan prn per AWSS protocol but hasn't required any last 24 hours supportive care (2) Alcohol withdrawal: Plan: resolved completed gabapentin taper ativan prn per AWSS protocol thiamine/folic acid supplementation (3) Compression fracture of T2 vertebra: Plan: presented with recurrent falls imaging with C7 compression fracture & T2 compression fracture appreciate ortho spine consult by Dr. Perez nonoperative Rx recommended 3 months of treatment in cervical thoracic orthosis no lifting over 5 pounds maintained alignment on upright x-rays wearing brace on 06/21 ok for mobilization wearing brace at all times PT/OT cont hydrocodone prn cont calcitonin nasal 2-4 weeks vitamin D level - 33 (4) Compression fracture of C7 vertebra: Plan: see #3 above (5) Fall: Plan: due to alcohol intoxication/abuse ? B1 deficiency ? other factors ? (neuropathy, orthostasis, etc) falls led to C7 and T2 fractures CT head negative for ICH previous MRI brain 01/2024 wnl and repeat MRI brain negative for acute findings previous B12 level wnl cont thiamine 200mg BID (6) Alcohol use disorder: Plan: see #1, #2 above after her February 2024 hospitalization she went to inpatient etoh rehab unfortunately had a relapse some time this fall after getting home this was despite use of naltrexone daily will talk with patient about resuming the naltrexone but making her aware it may interfere w/ effects of norco (7) Closed fracture of manubrium: Plan: no specific Rx needed other than pain control (8) Acute UTI: Plan: u/a was suggestive of UTI but urine cx with contaminants completed 5 days of IV rocephin in light of confusion I treated her for presumed UTI (9) Hypomagnesemia: Plan: repleted resolved (10) High anion gap metabolic acidosis: Plan: resolved (11) Herpes labialis: Plan: zovirax QID MRI brain w/o findings that would suggest encephalitis from HSV (and mental status is slowly improving) (12) Cough: Plan: cxr w/o pneumonia Plan Chronic conditions: HTN: cont lisinopril but lower dose to 5mg/day as BPs are low-normal on the 10mg dose GERD: PPI BID Depression: sertraline, quetiapine Iron deficiency anemia - Hb improved from 8.6 in February to 10.5 this admission. She had Fe deficiency in February s/p IV venofer. Ferritin now >300 (had been 44); H/H stable history of Gastric bypass status - noted; cont PPI DVT prophylaxis: Lovenox ordered but refusing it nearly daily; change to Eliquis 2.5mg BID for DVT proph daughter Silvia updated by phone this week left another message for Silvia today on her voicemail dispo - [facility] for rehab Plan can d/c tele move to med/surg Admission and Anticipated Discharge Date Admission Date: June 20, 2024 Subjective patient feeling overall much better hallucinations resolved eating improved no shakes/tremors she is more oriented she wants to start moving around more and sitting in chair tele stable overnight Review of Systems Review of Systems: pulm - no cough or dyspnea GI - no abd pain or N/V ; requests something for constipation neuro - no paresthesias of arms or legs Physical Exam Physical Exam: gen - best she has looked all week; NAD, pleasant, no confusion/agitation/hallucinations neck - c-collar in place mouth - MMM; canker sore on left tongue heart - RRR, s1 s2, no murmur lungs - CTA b/l abd - soft NT ND BS+ ext - no edema, pulses 2+ b/l neuro - no tremors; strength arms 5/5 b/l psych - oriented to person, place, month, year, got day of the week correct after 2 tries Results & Data Results & Data Vital Signs (Past 12 Hours) Vital Signs Temp Pulse Pulse Pulse Resp BP BP 06/25/24 18:58 36.8 C 90 18 111/74 06/25/24 15:48 36.2 C L 91 H 18 112/77 06/25/24 14:01 91 H 06/25/24 13:54 36.6 C 68 18 123/86 06/25/24 11:45 06/25/24 11:28 36.5 C 77 18 160/96 H 06/25/24 07:34 36.8 C 75 16 172/109 H Pulse Ox O2 Del Method 06/25/24 18:58 94 Room Air 06/25/24 15:48 92 Room Air 06/25/24 14:01 06/25/24 13:54 95 Room Air 06/25/24 11:45 Room Air 06/25/24 11:28 93 Room Air 06/25/24 07:34 93 Room Air PG Care Time/CCT Total # of Minutes Spent Total Time Spent with Patient: Total time spent is greater than 50% in coordination of care (as documented) at patient's floor/unit and/or counseling patient: Coding Level of Care Code 89021 SUB INP/OBS CARE 2/35MIN Diagnoses Fall W19.XXXA Encounter type: initial encounter (1) Fall Encounter type: initial encounter Qualified Code(s): W19.XXXA - Unspecified fall, initial encounter
[2024-06-25] MEDS: GABAPENTIN 600 MG TAB PO SCH (21:01)
[2024-06-26] MEDS: POLYETHYLENE (MIRALAX) 17 GM PACK PO SCH (16:55)
[2024-06-26] MEDS: SENNA 8.6 MG TAB PO SCH (16:57)
[2024-06-26] MEDS: hydrOXYzine HCl 25 MG TAB PO PRN (16:57)
[2024-06-26] MEDS: APIXABAN 2.5 MG TAB PO SCH (19:59)
[2024-06-26] MEDS: LIDOCAINE VISCOUS 2% 15 ML UDC MT PRN (20:49)
[2024-06-27] MEDS: lisinopril 5 MG TAB PO SCH (08:11)
--- NOTE | 2024-06-27 17:35 | Hospitalist Progress Note ---
Date of Service June 27, 2024 Assessment & Plan (1) Fall: Plan: (1) Acute metabolic encephalopathy: Plan: 2nd to #2 resolved checked COVID/flu/RSV - negative ammonia - wnl CT head at admission - negative for acute findings VBG - no acidosis or hypercapnia B12 early in 2023 - wnl TSH only marginally elevated this admission - doubt contributing to current mental status MRI brain negative for acute or subacute CVA cxr w/o pneumonia patient WITH B1 deficiency thus possible she had Wernicke's encephalopathy initially was on IV thiamine, now PO thiamine 200mg BID (2) Alcohol withdrawal: Plan: resolved completed gabapentin taper no ativan needed in several days cont thiamine/folic acid supplementation (3) Compression fracture of T2 vertebra: Plan: presented with recurrent falls imaging with C7 compression fracture & T2 compression fracture appreciate ortho spine consult by Dr. Perez nonoperative Rx recommended 3 months of treatment in cervical thoracic orthosis no lifting over 5 pounds maintained alignment on upright x-rays wearing brace on 06/21 ok for mobilization wearing brace at all times cont PT/OT cont hydrocodone prn cont calcitonin nasal 2-4 weeks vitamin D level - 33 (4) Compression fracture of C7 vertebra: Plan: see #3 above (5) Fall: Plan: due to alcohol intoxication/abuse ? B1 deficiency ? other factors ? (neuropathy, orthostasis, etc) falls led to C7 and T2 fractures CT head negative for ICH previous MRI brain 01/2024 wnl and repeat MRI brain negative for acute findings previous B12 level wnl cont thiamine 200mg BID (6) Alcohol use disorder: Plan: see #1, #2 above after her February 2024 hospitalization she went to inpatient etoh rehab unfortunately had a relapse some time this fall after getting home this was despite use of naltrexone daily discussed resuming the naltrexone but made her aware it may interfere w/ effects of norco thus hold off for now (7) Closed fracture of manubrium: Plan: no specific Rx needed other than pain control (8) Acute UTI: Plan: u/a was suggestive of UTI but urine cx with contaminants in light of confusion I treated her for presumed UTI completed 5 days of IV rocephin (9) Hypomagnesemia: Plan: repleted resolved repeat level in am for stability (10) High anion gap metabolic acidosis: Plan: resolved (11) Herpes labialis: Plan: zovirax QID MRI brain w/o findings that would suggest encephalitis from HSV (and mental status is slowly improving) Plan Chronic conditions: HTN: cont lisinopril at lower dose of 5mg/day as BPs were low-normal on the 10mg dose GERD: PPI BID Depression: sertraline, quetiapine Iron deficiency anemia - Hb improved from 8.6 in February to 10.5 this admission. She had Fe deficiency in February s/p IV venofer. Ferritin now >300 (had been 44); H/H stable history of Gastric bypass status - noted; cont PPI twice daily DVT prophylaxis: Lovenox ordered early in the admission but mostly refusing it nearly daily; changed to Eliquis 2.5mg BID for DVT proph daughter Silvia updated by phone this week left another message for Silvia on 06/26 dispo - [facility] for rehab - this week? (2) Thiamine deficiency: Plan: B1 level 73 (normal >78( cont thiamine 200mg BID x 1 month Admission and Anticipated Discharge Date Admission Date: June 20, 2024 Subjective patient feeling well had a very good BM earlier today eating is improved no hallucinations, confusion or tremors she feels like herself mild neck pain only denies paresthesias of arms/legs no motor weakness Review of Systems Review of Systems: cv - no chest pain pulm - no dyspnea GI - no abd pain or N/V Physical Exam Physical Exam: gen - NAD, pleasant, looks well today neck - c-collar in place mouth - MMM heart - RRR, s1 s2, no murmur lungs - CTA b/l abd - soft NT ND BS+ ext - no edema, pulses 2+ b/l neuro - strength arms 5/5 b/l psych - oriented x 3 Results & Data Results & Data Vital Signs (Past 12 Hours) Vital Signs Temp Pulse Resp BP Pulse Ox O2 Del Method 06/27/24 15:03 36.6 C 78 16 107/73 95 Room Air 06/27/24 07:22 36.9 C 85 16 113/75 92 Room Air Laboratory Results Laboratory Results - last 24 hr 06/20/24 14:24 Whole Bld Vitamin B1 73 L PG Care Time/CCT Total # of Minutes Spent Total Time Spent with Patient: Total time spent is greater than 50% in coordination of care (as documented) at patient's floor/unit and/or counseling patient: Coding Level of Care Code 62897 SUB INP/OBS CARE MIN Diagnoses Fall W19.XXXA Encounter type: initial encounter Thiamine deficiency E51.9 (1) Fall Encounter type: initial encounter Qualified Code(s): W19.XXXA - Unspecified fall, initial encounter
[2024-06-27] MEDS: THIAMINE HCL 100 MG TAB PO SCH (20:06)
[2024-06-27] MEDS: GABAPENTIN 300 MG CAP PO SCH (20:06)
[2024-06-27] MEDS: ONDANSETRON 4 MG OD TAB PO PRN (20:40)
[2024-06-28 07:09] VITALS: TEMP 98.1
[2024-06-28 07:16] LABS: Hematocrit (blood only) 31.7 % (37.0-47.0); Hemoglobin 10.4 g/dl (12.0-16.0); Mean Corpuscular Hemoglobin 30.1 pg (25.0-34.0); Mean Corpuscular Hgb Conc 32.8 g/dL (32.0-36.0); Mean Corpuscular Volume 91.9 fL (80.0-100.0); Mean Platelet Volume 8.6 fL (9.4-12.4); Platelet Count 344 K/uL (130-400); RDW Coefficient of Variation 16.8 % (11.5-14.5); Red Blood Count 3.45 M/uL (4.20-5.40); White Blood Count 6.06 K/ul (4.8-10.8)
[2024-06-28 07:24] LABS: Calcium 8.3 mg/dl (8.6-10.3); Creatinine Clr Calc Pharmacy 67.9 ml/min; Potassium 4.6 mmol/L (3.5-5.1)
--- NOTE | 2024-06-28 08:17 | Orthopedic Progress Note ---
Date of Service June 28, 2024 Assessment & Plan (1) Burst fracture of thoracic vertebra: (2) Compression fracture of C7 vertebra: Plan Con't cervicothoracic orthosis -- plan for 3 months in brace. Weight lifting restrictions of no greater than 5 pounds. PT/OT for mobilization w/ brace on. Pain controlled with current regimen, and patient has not taken any of the [place] since yesterday morning, which is basically 24 hours. Plan is for patient to go to [facility]. Admission and Anticipated Discharge Date Admission Date: June 20, 2024 Subjective Patient says that she has been compliant with wear of her cervicothoracic brace. She states that she is getting stiff since no one has been getting her out of bed. Patient states that therapy has not been by yet to work with her. Her pain is well-controlled; she is denying neck/C-spine/T-spine pain at this time. She plans to go to an inpatient rehab facility upon discharge (case management is working on [facility]). Physical Exam Physical Exam: GENERAL: Lying in bed, sitting upright with cervicothoracic orthosis donned and well-fitting. RESPIRATORY: Patient with unlabored breathing. No signs of respiratory distress. NECK: Alignment of head/neck/shoulders is appropriate. SKIN: [place], warm and dry. No rash noted. MS/EXTREMITY: No swelling, no deformities. Moving extremities appropriately. NEURO: Alert and appears oriented. Motor strength is 5/5 in bilateral elbow flexion, elbow extension, wrist extension, wrist flexion, scourer strength, and hand intrinsics. Sensation intact to light touch in the C5-T1 dermatomes bilaterally. Results & Data Vital Signs (Past 12 Hours) Vital Signs Temp Pulse Resp BP BP Pulse Ox O2 Del Method 06/28/24 07:08 36.7 C 77 16 107/72 93 Room Air 06/28/24 04:13 36.8 C 80 14 116/78 93 Room Air 06/27/24 23:13 36.9 C 83 16 119/76 93 Room Air Diagnostic Findings Cervical Spine CT 06/20/24 08:23 CT OF THE CERVICAL SPINE WITHOUT CONTRAST CLINICAL HISTORY: FALL, NECK PAIN COMPARISON STUDY: Cervical spine CT November 15, 2023. CTA of the neck January 23, 2024. TECHNIQUE: Helical axial images of the cervical spine were obtained without IV contrast. Sagittal and coronal reconstructions were viewed. Automated exposure control was utilized for the study. A dose lowering technique was utilized adhering to the principles of ALARA. FINDINGS: Alignment of the cervical spine is anatomic. There is mild loss of height of the superior endplate of C7 which is new since CT of January 23, 2024. Subtle cortical irregularity of the superior endplate and anterior cortex of T1 is noted. A moderate T2 compression fracture with buckling of the anterior cortex and mild retropulsion is noted. There is also an acute acute appearing nondisplaced fracture through the spinous process of T2. These findings are new since prior CT as well. IMPRESSION: 1. Mild C7 compression fracture which is age indeterminate but new since CT of January 23, 2024. 2. Moderate T2 compression fracture with mild retropulsion which is also age- indeterminate but new since CT of January 23, 2024. Given acute appearing fracture through the spinous process of T2, this fracture is likely acute. 3. Mild age-indeterminate T1 compression deformity. ACT 112: Negative or not required by law. Electronically signed by: Ajit Young M.D. 06/20/2024 10:[address] 06/20/24 08:23 CT thoracic spine w con CLINICAL HISTORY: MID BACK PAIN S/P FALL COMPARISON STUDY: Chest CT March 05, 2023. TECHNIQUE: Axial images of the thoracic spine were obtained. Sagittal and coronal reformats were viewed. Automated exposure control was utilized for the study. A dose lowering technique was utilized adhering to the principles of ALARA. FINDINGS: There is a T2 compression fracture with 50% loss of vertebral body height and minimal retropulsion. This is new since CT of March 05, 2023. Mild associated paravertebral edema is present. There is an acute appearing nondisplaced fracture through the spinous process of T2. Mild loss of height of C7 is noted as well as subtle cortical irregularity anterior cortex and superior endplate of T1. No additional spinal fractures are identified on this examination. Acute minimally displaced manubrial fracture is better depicted on the chest CT which will be reported separately. IMPRESSION: 1. T2 fracture with 50% loss of vertebral body height and minimal retropulsion. Given paravertebral edema, this fracture is likely acute. Acute appearing nondisplaced fracture through the spinous process of T2. 2. Slight loss of height of C7 and subtle cortical irregularity of the superior endplate and anterior cortex of T1. These fractures are also likely acute. 3. Acute minimally displaced manubrial fracture better depicted on the chest CT which will be reported separately. ACT 112: Negative or not required by law. Electronically signed by: Ajit Young M.D. 06/20/2024 10:34 AM Thoracic Spine MRI 06/20/24 11:17 MRI OF THE THORACIC SPINE WITHOUT CONTRAST CLINICAL HISTORY: T1-T2 compression fracture COMPARISON: Thoracic spine CT June 20, 2024. Chest CT March 05, 2023. TECHNIQUE: Utilizing a 1.5 Rohini magnet and dedicated coil, multiplanar, multiecho imaging of the thoracic spine was performed without IV contrast. FINDINGS: Alignment of the thoracic spine is anatomic. Moderate T2 compression fracture is present with 50% loss of vertebral body height and minimal retropulsion. There is associated marrow edema within the T2 vertebral body. An acute appearing nondisplaced fractures through the spinous process of T2 is better depicted on the thoracic spine CT. There is mild edema adjacent to the spinous processes of T2-T6. There is mild upper thoracic prevertebral edema. Thoracic cord signal and caliber are normal. However, this exam is mildly compromised by motion artifact. There is no intracanalicular mass or fluid collection. There is also a mild compression fracture of C7 which is acute to subacute. Possible T1 fracture on CT was artifactual. There are no additional thoracic spine fracture. Loss of height of the superior endplate of L2 without vertebral edema is chronic. IMPRESSION: 1. T2 compression fracture with 50% loss of vertebral body height and minimal retropulsion. Associated marrow edema. This fracture is acute to subacute. Acute appearing nondisplaced fracture of the spinous process of T2, better depicted by CT. Mild prevertebral edema within the upper thoracic spine. 2. Acute to subacute mild C7 compression fracture. 3. Mild edema adjacent to the spinous processes of T2-T6. This may represent injury to the interspinous ligament. 4. Exam mildly compromised by motion artifact. Normal thoracic cord signal and caliber. ACT 112: Negative or not required by law. Electronically signed by: Ajit Young M.D. 06/20/2024 1:45 PM Cervical Spine MRI 06/20/24 11:27 MRI OF THE CERVICAL SPINE WITHOUT CONTRAST CLINICAL HISTORY: C7 compression fracture COMPARISON: Cervical spine CTs November 15, 2023 and June 20, 2024. TECHNIQUE: Utilizing a 1.5 Rohini magnet and dedicated coil, multiplanar, multiecho imaging of the cervical spine was performed without IV contrast. FINDINGS: This exam is mildly compromised by motion artifact. Cervical cord signal and caliber are normal. There is no intracanalicular mass or fluid collection. There is mild marrow edema within the C7 vertebral body with mild loss of vertebral body height. There is no retropulsion at this level. No extension into the posterior elements is noted. T2 compression fracture is noted with 50% loss of vertebral body height and 3 mm of retropulsion. An acute appearing nondisplaced fracture of the spinous process of T2 is better depicted on cervical spine CT performed earlier today. There is mild edema adjacent to the spinous processes of T2-T6. Mild prevertebral edema within the upper thoracic spine is present. There are mild degenerative changes within the cervical spine. There is no definite T1 fracture. C2-C3: The central canal and neural foramen are patent. C3-C4: The central canal and neural foramen are patent. C4-C5: The central canal and neural foramen are patent. C5-C6: The central canal and neural foramen are patent. C6-C7: Posterior disc osteophyte complex effaces the ventral thecal sac. There is mild central canal stenosis. There is mild bilateral neural foraminal stenosis. C7-T1: Central canal and neural foramen are patent. IMPRESSION: 1. T2 compression fracture with 50% loss of vertebral body height and 3 mm of retropulsion. Associated marrow edema. This fracture is acute to subacute. Acute appearing nondisplaced fracture of the spinous process of T2, better depicted by CT. Mild prevertebral edema within the upper thoracic spine. 2. Mild edema adjacent to the spinous processes of T2-T6. This may reflect injury to the interspinous ligament. 3. Findings suggestive of an acute to subacute mild C7 compression fracture. 4. Normal cervical cord signal and caliber. 5. Mild central canal stenosis at C6-C7 due to posterior disc osteophyte complex. 6. Exam mildly compromised by motion artifact. ACT 112: Negative or not required by law. Electronically signed by: Ajit Young M.D. 06/20/2024 1:28 PM Cervical Spine X-Ray 06/21/24 11:41 XR cervical spine 2 or 3V CLINICAL HISTORY: standing COMPARISON STUDY: Cervical spine CT and MRI June 20, 2024. FINDINGS: Alignment of the cervical spine is anatomic. Mild loss of height of the superior endplate of C7 is is similar to CT and MRI. T2 is largely obscured on this examination. There is moderate loss of height of the T2 vertebral body suggestive of acute fracture, better depicted on prior CT and MRI. Mild multilevel degenerative changes within the cervical spine are present. IMPRESSION: 1. Moderate loss of height of the T2 vertebral body suggestive of acute fracture, partially obscured on this exam. This fracture is better depicted on CT and MRI June 20, 2024. 2. Mild acute compression fracture of C7. ACT 112: Negative or not required by law. Electronically signed by: Ajit Young M.D. 06/21/2024 4:03 PM Thoracic Spine X-Ray 06/21/24 11:41 XR thoracic spine 3V routine HISTORY: 68 years-old Female T2 burst fractrue, standing XR cervicothoracic jxn acute mid back pain COMPARISON: CT and MRI of thoracic spine studies 06/20/2024 TECHNIQUE: 3 views of the thoracic spine FINDINGS: Unchanged appearance of the T2 compression fracture which appears to be acute versus subacute without significant retropulsion. The C7 compression deformity is not well seen on the study. [id number] multilevel intervertebral disc space narrowing and facet arthrosis without additional acute fracture or subluxation. IMPRESSION: Unchanged appearance of the acute to subacute-appearing T2 compression deformity, better seen on the prior CT and MRI exams. ACT 112: Negative or not required by law. The above report was generated using voice recognition software. It may contain grammatical, syntax or spelling errors. Electronically signed by: Isaiah Yeung M.D. 06/21/2024 4:03 PM (1) Burst fracture of thoracic vertebra Encounter type: initial encounter Fracture type: closed Qualified Code(s): S22.001A - Stable burst fracture of unspecified thoracic vertebra, initial encounter for closed fracture (2) Compression fracture of C7 vertebra Encounter type: initial encounter Qualified Code(s): S12.690A - Other displaced fracture of seventh cervical vertebra, initial encounter for closed fracture
[2024-06-28] MEDS ORDERED: ACYCLOVIR 5% OINT 15 GM TUBE EXT PRN (15:12)
--- NOTE | 2024-06-28 15:13 | Hospitalist Progress Note ---
Date of Service June 28, 2024 Assessment & Plan (1) Fall: Plan: (1) Acute metabolic encephalopathy: Plan: 2nd to #2 resolved checked COVID/flu/RSV - negative ammonia - wnl CT head at admission - negative for acute findings VBG - no acidosis or hypercapnia B12 early in 2023 - wnl TSH only marginally elevated this admission - doubt contributing to current mental status MRI brain negative for acute or subacute CVA cxr w/o pneumonia patient WITH B1 deficiency thus possible she had Wernicke's encephalopathy initially was on IV thiamine, now PO thiamine 200mg BID (2) Alcohol withdrawal: Plan: resolved completed gabapentin taper no ativan needed in several days cont thiamine/folic acid supplementation (3) Compression fracture of T2 vertebra: Plan: presented with recurrent falls imaging with C7 compression fracture & T2 compression fracture appreciate ortho spine consult by Dr. Perez nonoperative Rx recommended 3 months of treatment in cervical thoracic orthosis no lifting over 5 pounds maintained alignment on upright x-rays wearing brace on 06/21 ok for mobilization wearing brace at all times cont PT/OT cont hydrocodone prn cont calcitonin nasal 2-4 weeks vitamin D level - 33 (4) Compression fracture of C7 vertebra: Plan: see #3 above (5) Fall: Plan: due to alcohol intoxication/abuse ? B1 deficiency ? other factors ? (neuropathy from B1 def, orthostasis, etc) falls led to C7 and T2 fractures CT head negative for ICH previous MRI brain 01/2024 wnl and repeat MRI brain negative for acute findings previous B12 level wnl cont thiamine 200mg BID for thiamine def (6) Alcohol use disorder: Plan: see #1, #2 above after her February 2024 hospitalization she went to inpatient [facility] rehab unfortunately had a relapse some time this fall after getting home this was despite use of naltrexone daily discussed resuming the naltrexone but made her aware it may interfere w/ effects of norco thus holding off for now (7) Closed fracture of manubrium: Plan: no specific Rx needed other than pain control (8) Acute UTI: Plan: u/a was suggestive of UTI but urine cx with contaminants in light of confusion I treated her for presumed UTI completed 5 days of IV rocephin (9) Hypomagnesemia: Plan: repleted resolved repeat level today wnl (10) High anion gap metabolic acidosis: Plan: resolved (11) Herpes labialis: Plan: zovirax QID prn recent cold sore resolved Plan Chronic conditions: * HTN: cont lisinopril at lower dose of 5mg/day as BPs were low-normal on the 10mg dose * GERD: PPI BID * Depression: sertraline, quetiapine * Iron deficiency anemia - Hb improved from 8.6 in February to 10.5 this admission . She had Fe deficiency in February s/p IV venofer. Ferritin now >300 (had been 44); H/H stable * history of Gastric bypass status - noted; cont PPI twice daily * low back pain: usually needs SI joint injections, etc for her back pain. Back typically bothers her daily at home but pain recently has been better -- perhaps due to recent gabapentin usage? restarted gabapentin 300mg BID and tolerating such. DVT prophylaxis: Lovenox ordered early in the admission but mostly refusing it nearly daily; changed to Eliquis 2.5mg BID for DVT proph H/H stable daughter Silvia updated by phone this week left another message for Silvia on 06/26 dispo - [facility] for rehab - 06/29? 07/01? (2) Thiamine deficiency: Plan: B1 level 73 (normal >78) cont thiamine 200mg BID x 1 month Plan dispo - [facility] auth submitted to insurance Admission and Anticipated Discharge Date Admission Date: June 20, 2024 Subjective patient w/o any new complaints she asks for the following - * stop mucinex * stop lidoderm patches * pare down PO meds if possible * renew viscous lidocaine * make zovirax ointment PRN states "I'm ready to go to rehab" Review of Systems Review of Systems: CV - no chest pain neck - pain controlled pulm - no dyspnea GI - no abd pain or N/V Physical Exam Physical Exam: gen - NAD, pleasant, looks well neck - c-collar in place ears - minimal irritation behind the left ear due to the c-collar rubbing on this area mouth - MMM heart - RRR, s1 s2, no murmur lungs - CTA b/l abd - soft NT ND BS+ ext - no edema, pulses 2+ b/l neuro - strength arms 5/5 b/l psych - oriented x 3 Results & Data Results & Data Vital Signs (Past 12 Hours) Vital Signs Temp Pulse Resp BP Pulse Ox O2 Del Method 06/28/24 07:08 36.7 C 77 16 107/72 93 Room Air 06/28/24 04:13 36.8 C 80 14 116/78 93 Room Air Laboratory Results Laboratory Results - last 24 hr 06/28/24 06:12 WBC 6.06 RBC 3.45 L Hgb 10.4 L Hct 31.7 L MCV 91.9 MCH 30.1 MCHC 32.8 RDW Std Deviation 56.0 H RDW Coeff of Cate 16.8 H Plt Count 344 MPV 8.6 L Sodium 139 Potassium 4.6 Chloride 107 Carbon Dioxide 25 Anion Gap 7 BUN 15 Creatinine 0.75 Est Cr Clr Drug Dosing 67.9 eGFR 86.67 BUN/Creatinine Ratio 20.0 Glucose 94 Calcium 8.3 L Magnesium 2.0 PG Care Time/CCT Total # of Minutes Spent Total Time Spent with Patient: Total time spent is greater than 50% in coordination of care (as documented) at patient's floor/unit and/or counseling patient: Coding Level of Care Code 91284 SUB INP/OBS CARE 2/35MIN Diagnoses Fall W19.XXXA Encounter type: initial encounter Thiamine deficiency E51.9 (1) Fall Encounter type: initial encounter Qualified Code(s): W19.XXXA - Unspecified fall, initial encounter
[2024-06-28 20:17] VITALS: RESP 18
[2024-06-29 08:11] VITALS: O2SAT 94
[2024-06-29] MEDS: MULTI VIT W/MINERALS LIQUID 15 ML UDC PO SCH (08:11)
[2024-06-29 11:33] VITALS: BP 119/76; PULSE 75
--- NOTE | 2024-06-29 13:18 | Discharge Summary ---
Discharge Summary Date of Service June 29, 2024 Principal Dx & Hospital Course #1 = Principal Diagnosis (1) Fall: 68 y/o woman admitted after at least two falls at home, found to have cervical and thoracic spinal fractures, also sternal fracture. Ortho spine consulted recommended management with bracing - cervicothoracic orthosis for three months. She developed alcohol withdrawal during the admission which has resolved. B1 level was deficient and this was replaced IV/po. Requiring SNF rehab to regain functional status. (1) Acute metabolic encephalopathy: Plan: 2nd to #2 resolved checked COVID/flu/RSV - negative ammonia - wnl CT head at admission - negative for acute findings VBG - no acidosis or hypercapnia B12 early in 2023 - wnl TSH only marginally elevated this admission - doubt contributing to current mental status MRI brain negative for acute or subacute CVA cxr w/o pneumonia patient WITH B1 deficiency thus possible she had Wernicke's encephalopathy initially was on IV thiamine, now PO thiamine 200mg BID Mental status has normalized. (2) Alcohol withdrawal: Plan: resolved completed gabapentin taper no ativan needed in days cont thiamine/folic acid supplementation (3) Compression fracture of T2 vertebra: Plan: presented with recurrent falls imaging with C7 compression fracture & T2 compression fracture appreciate ortho spine consult by Dr. Perez nonoperative Rx recommended 3 months of treatment in cervical thoracic orthosis no lifting over 5 pounds maintained alignment on upright x-rays wearing brace on 06/21 ok for mobilization wearing brace at all times cont PT/OT cont hydrocodone prn cont calcitonin nasal 2-4 weeks vitamin D level - 33 (4) Compression fracture of C7 vertebra: Plan: see #3 above (5) Fall: Plan: due to alcohol intoxication/abuse ? B1 deficiency ? other factors ? (neuropathy from B1 def, orthostasis, etc) falls led to C7 and T2 fractures CT head negative for ICH previous MRI brain 01/2024 wnl and repeat MRI brain negative for acute findings previous B12 level wnl cont thiamine 200mg BID for thiamine def (6) Alcohol use disorder: Plan: see #1, #2 above after her February 2024 hospitalization she went to inpatient [facility] rehab unfortunately had a relapse some time this fall after getting home this was despite use of naltrexone daily discussed resuming the naltrexone but made her aware it may interfere w/ effects of norco thus holding off for now resume oral naltrexone once no longer requiring opioid for pain discussed alcohol cessation (7) Closed fracture of manubrium: Plan: no specific Rx needed other than pain control (8) Acute UTI: Plan: u/a was suggestive of UTI but urine cx with contaminants in light of confusion I treated her for presumed UTI completed 5 days of IV rocephin (9) Hypomagnesemia: Plan: repleted resolved (10) High anion gap metabolic acidosis: Plan: resolved (11) Herpes labialis: Plan: zovirax QID prn recent cold sore resolved Plan Chronic conditions: * HTN: cont lisinopril at lower dose of 5mg/day as BPs were low-normal on the 10mg dose * GERD: PPI BID * Depression: sertraline, quetiapine * Iron deficiency anemia - Hb improved from 8.6 in February to 10.5 this admission. She had Fe deficiency in February s/p IV venofer. Ferritin now >300 (had been 44); H/H stable * history of Gastric bypass status - noted; cont PPI twice daily * low back pain: usually needs SI joint injections, etc for her back pain. Back typically bothers her daily at home but pain recently has been better -- perhaps due to recent gabapentin usage? restarted gabapentin 300mg BID and tolerating such. Eliquis 2.5mg BID for DVT proph - stop once ambulating frequently H/H stable (2) Thiamine deficiency: B1 level 73 (normal >78) cont thiamine 200mg BID x 1 month then decrease to 100 mg po daily indefinitely Admission HPI Per Admitting Provider This is a 68-year-old female with past medical history of alcoholism, depression, s/p Tayler X and Y gastric bypass, iron deficiency anemia who presented to the emergency department on 06/20/2024 for recurrent falls. The patient was seen and examined at bedside. She appeared comfortable at time of encounter. Patient states that the last few days she has had multiple falls. She states that she did strike her head the first fall a few days ago but has not fallen since. She attributes these to mechanical falls and states that her walker tends to get caught up in her carpeting. States that she lives alone. She reports that she has been having some chest/rib pain and back pain since the falls. She denies any shortness of breath, abdominal pain, nausea, vomiting, lower extremity edema. She denies any urinary symptoms including dysuria, frequency, or hematuria. She does admit to weakness. Patient states that after her last hospitalization in February 2024 she did go to an inpatient rehab facility for her alcohol use disorder. She states that she was there and after being discharged she was sober for approximately 50 days. She states that she drinks because she likes the taste of the alcohol. She states that she will drink rum and coke every night. Last drink was last evening. States that she will have on average 3 drinks a night and that they will last her a while. She states that she sips on them slowly. She states that she is not depressed or anxious. Patient states that she did not take any of her medications this morning. While in the emergency department she did have a workup including a chest x-ray that was negative. Cervical spine CT did reveal a mild T7 compression fracture that was age-indeterminate and a moderate T2 compression fracture with mild retropulsion which is age-indeterminate and a mild age-indeterminate T1 compression deformity. Chest CTA was negative for PE. Head CT was negative. Thoracic spine CT did reveal a T2 fracture with 50% loss of vertebral body, acutely minimally displaced manubrial fracture. Her alcohol level was negative. Her CBC was positive for anemia at 10.5 which was within her baseline. PT/INR stable and CMP stable. Urinalysis was mildly positive for UTI. Discharge Exam PHYSICAL EXAMINATION Last 24h vital signs reviewed, see documentation in flowsheet General: awake and alert sitting in bed neck/thoracic brace HEENT: moist mucus membranes Lungs: Normal respiratory effort. Heart: heart area covered by brace Abdomen: Soft, nondistended. Extremities: Warm, dry, well-perfused. No extremity edema. Neuro: Alert and oriented x 4, face symmetric, moves 4 extremities well, no tremulousness Psych: Normal affect and behavior Discharge Plan Discharge Items Patient Disposition: Transfer Intermediate Fac Reason For Visit: FALL Discharge Diagnosis: cervical and thoracic vertebral fractures, alcohol withdrawal, thiamine deficiency Activity: Per Instructions section Lifting: No more than 5 pounds Weightbearing Comment: Full weightbearing while wearing thoracic-cervical brace Non-emergency contact: Primary Care Provider and Surgeon Call non-emergency contact if: you have any medication questions, your symptoms worsen, your pain is not controlled, your pain is worsening, your pain is unusual for you, your pain is concerning for you, you have a fever, your rectal temperature is above 100.4, your temperature is above 101, your temperature is above 101.5, your wound has increased redness, your wound has increased drainage and your wound pain has increased Follow-up/Referrals: Emily Diehl PA-C [Primary Care Provider] - Diet: Regular Addtl Attending Provider Instructions: PT and OT evaluate and treat Wear cervical-thoracic brace at all times - plan for 3 months Follow up with Dr. Perez in 2-4 weeks Protein supplement at least daily (Boost, etc) Continue indefinite thiamine supplement Pending Studies at Discharge: No Stand-Alone Forms: My [facility] Skilled Items Patient informed of condition?: Yes DNR: No Discharge Level of Care: Skilled Communicable Disease: No Discharge Prognosis: Improving Lines: None Urinary Catheter: No Medications and DC Order Prescriptions: New Eliquis 2.5 mg Tablet 2.5 mg PO BID 14 Days Qty: 28 0RF hydrocodone-acetaminophen 5-325 mg Tablet 1 tab PO Q6H PRN (Reason: pain) Qty: 10 0RF gabapentin 300 mg Capsule 300 mg PO BID Qty: 0 0RF lisinopril [Zestril] 5 mg Tablet 5 mg PO QAM Qty: 0 0RF polyethylene glycol 3350 [Miralax] 17 gram Powder In Packet 17 g PO DAILY Qty: 0 0RF lidocaine HCl [Lidocaine Viscous] 2 % Solution 15 ml MT Q6H PRNQty: 0 0RF hydroxyzine HCl 25 mg Tablet 25 mg PO TID PRNQty: 0 0RF calcitonin (salmon) 200 unit/actuation [place],Non-Aerosol 1 spray NA DAILY 14 Days Qty: 3.7 0RF thiamine HCl (vitamin B1) 100 mg Tablet 200 mg PO BID 28 Days Qty: 0 0RF Continued sertraline 50 mg Tablet 150 mg PO HS Qty: 90 1RF multivitamin Tablet 1 tab PO DAILY Qty: 30 1RF hydroxyzine pamoate 100 mg Capsule 50 mg PO HS Qty: 30 0RF valacyclovir 1 gram Tablet 500 mg PO DAILY 14 Days Qty: 14 0RF alendronate 70 mg tablet 70 mg PO Q7D Qty: 4 1RF Rx Instructions: Mondays quetiapine 100 mg tablet 100 mg PO HS Qty: 30 0RF acetaminophen [Tylenol Extra Strength] 500 mg Tablet 1,000 mg PO Q8H PRN (Reason: pain or fever) Qty: 30 0RF Rx Instructions: max 3000mg in 24 hours magnesium oxide 400 mg (241.3 mg magnesium) Tablet 400 mg PO BID Qty: 60 1RF pantoprazole 40 mg tablet,delayed release (DR/EC) 40 mg PO BID Qty: 60 1RF folic acid 1 mg tablet 1 mg PO DAILY 30 Days Qty: 30 0RF ondansetron 4 mg tablet,disintegrating 4 mg PO Q6H PRN (Reason: nausea and vomiting) Qty: 10 0RF cholecalciferol (vitamin D3) 125 mcg (5,000 unit) Tablet 125 mcg PO QAM Qty: 30 1RF acyclovir [Zovirax] 5 % ointment 1 applic topical QID PRN (Reason: Secretions) Rx Instructions: apply until cold sores are resolved. Held naltrexone 50 mg tablet 50 mg PO DAILY Qty: 30 1RF Hold Instructions: Resume on 07/06/24. resume once no longer needing hydrocodone for pain thiamine HCl (vitamin B1) 100 mg Tablet 100 mg PO QAM Qty: 30 0RF Hold Instructions: Resume on 07/27/24. resume once high dose thiamine completed, continue indefinitely Discontinued lisinopril 10 mg Tablet 20 mg PO HS Qty: 60 1RF acyclovir 5 % ointment TOPICAL PRN (Reason: herpes ) acyclovir 5 % ointment TOPICAL alendronate 70 mg tablet PO acyclovir 5 % ointment TOPICAL Discharge Orders: Discharge Order (Routine); Ordered 06/29/24 Ordered By: Olga Eng Admission Data Admit Date/Time: 06/20/24 11:15 Attending Provider: Olga Eng Admit Provider: Amari Verdin Primary Care Provider: Emily Diehl Other Providers: [facility]; [facility],; Amari Verdin; George Ferrara; Eldon Olguin; Dima Scott; Aniyah Alba; Isaiah Garrett; Sanjiv Perez Other Interventions: Discharge Summary Assessment (RN) Last Done: 06/29/24 11:30 Hospital Stay Data Consultations 06/20/24 11:00 ED Decision to Admit Stat 06/20/24 14:32 Consult Orthopedic Spine Surgery Routine Diagnostic Imagining Performed 06/20/24 08:23 CT angio chest PE protocol Stat CT cervical spine wo con Stat CT head/brain wo con Stat CT thoracic spine w con Stat 06/20/24 11:17 MRI Thoracic [MR thoracic spine wo con] Stat 06/20/24 11:27 MR cervical spine wo con Stat 06/23/24 14:49 MR brain wo/w con Routine Pending Results Patient Have Any Pending Studies at Discharge: No Discharge Instructions Given to Patient (Per Discharging Provider) PT and OT evaluate and treat Wear cervical-thoracic brace at all times - plan for 3 months Follow up with Dr. Perez in 2-4 weeks Protein supplement at least daily (Boost, etc) Continue indefinite thiamine supplement Total Time Total Time Spent Total Time Spent (In Minutes): I personally spent: 40 minutes today on clinical care activities including: reviewing chart notes and vital signs reviewing labs reviewing studies discussion with interior plant caretaker examining and counseling the patient writing prescriptions, discharge instructions documentation Coding Level of Care Code 94032 INP/OBS DISCH >30 MIN Diagnoses Fall W19.XXXA Encounter type: initial encounter Thiamine deficiency E51.9
== END 2024-06-29 14:40 | DRG 542 ==
LOC: ED 06:52 → 2N 11:15 → SUATTDRO 11:15 → 3W 06-28 03:57

== ENCOUNTER 2024-12-23 11:59 | Observation (INO) ==
[2024-12-23] MEDS: DEXTROSE 50% 50 ML SYRINGE IV ONE ×2 (12:00→13:18)
[2024-12-23 12:56] LABS: Basophils # (auto) 0.02 K/uL (0.00-0.20); Basophils % (auto) 0.3 %; Eosinophils % (auto) 2.8 %; Hematocrit (blood only) 35.2 % (37.0-47.0); Hemoglobin 11.7 g/dl (12.0-16.0); Immature Granulocytes # (auto) 0.04 K/uL (0.01-0.20); Immature Granulocytes % (auto) 0.6 %; Lymphocytes # (auto) 0.98 K/uL (1.20-3.40); Lymphocytes % (auto) 13.9 %; Mean Corpuscular Hemoglobin 35.5 pg (25.0-34.0); Mean Corpuscular Hgb Conc 33.2 g/dL (32.0-36.0); Mean Corpuscular Volume 106.7 fL (80.0-100.0); Mean Platelet Volume 8.6 fL (9.4-12.4); Monocytes # (auto) 0.51 K/uL (0.11-0.59); Monocytes % (auto) 7.3 %; Neutrophils # (auto) 5.28 K/uL (1.40-6.50); Neutrophils % (auto) 75.1 %; Platelet Count 263 K/uL (130-400); RDW Coefficient of Variation 14.9 % (11.5-14.5); RDW Standard Deviation 58.8 fL (36.4-46.3); White Blood Count 7.03 K/ul (4.8-10.8)
[2024-12-23 13:07] LABS: Appearance Urine Clear (Clear); Bacteria Urine Automated 4+ (None Seen); Bilirubin Urine Negative (Negative); Blood Urine Negative (Negative); Cast Urine Automated 0-2 /lpf (0-2); Color Urine Yellow; Glucose Urine UA Trace (Negative); Ketones Urine Trace (Negative); Leukocyte Esterase Urine 1+ (Negative); Nitrite Urine Negative (Negative); Protein Urine Negative (Negative); RBC Urine Automated 0-2 /hpf (0-2); Specific Gravity Urine 1.009 (1.000-1.030); Uric Acid Crystals Urine Present (None Prsent); Urobilinogen Urine Negative (Negative); WBC Urine Automated 0-5 /hpf (0-5); pH Urine 5.5 (4.5-7.5)
[2024-12-23 13:18] LABS: Albumin Globulin Ratio 1.2 (0.9-2); BUN Creatinine Ratio 16.1 (10-20); Bilirubin,Total 1.3 mg/dl (0.2-1.0); Calcium 7.9 mg/dl (8.6-10.3); Creatinine Clr Calc Pharmacy 54.9 ml/min; Globulin 2.6 gm/dl (2.5-4.0); Magnesium 1.5 mg/dl (1.7-2.4); Potassium 4.3 mmol/L (3.5-5.1); Total Protein 5.6 gm/dl (6.0-8.3)
[2024-12-23] MEDS: DEXTROSE 10% 1,000 ML BAG IV ONE (13:18)
[2024-12-23 13:24] LABS: Troponin I High Sensitivity 5.6 pg/ml (0-14)
[2024-12-23 13:32] LABS: Partial Thromboplastin Ratio 1.1; Partial Thromboplastin Time 29 Seconds (21-31); Prothrombin Time 10.5 Seconds (9.0-12.0)
[2024-12-23] MEDS: SODIUM CHLORIDE 0.9% 1,000 ML IV ONE (13:32)
[2024-12-23 13:33] LABS: Thyroid Stimulating Hormone 2.599 uIu/ml (0.300-4.500)
--- NOTE | 2024-12-23 13:39 | XRay Report ---
XR chest 1V portable CLINICAL HISTORY: unresponsive COMPARISON STUDY: 06/23/2024 FINDINGS: Stable mild cardiomegaly without pulmonary vascular congestion. No effusion, consolidation, or pneumothorax. IMPRESSION: No acute findings. ACT 112: Negative or not required by law. Electronically signed by: Pardeep Collier M.D. 12/23/2024 1:37 PM
--- NOTE | 2024-12-23 13:58 | Emergency Department Note ---
Impression & Plan Unresponsive episode, Hypomagnesemia, Severe diabetic hypoglycemia, Hypocalcemia, Acute UTI (urinary tract infection) ED Provider Note HISTORY OF PRESENT ILLNESS: Patient is a 69-year-old female presenting after being found unresponsive. Patient lives at [facility] on the independent care side by herself. Daughter went to check on her today and the daughter found the patient on the ground at 11 AM. Daughter reports the patient was unresponsive and called 911. She was last seen well at 1530 yesterday afternoon. On EMS arrival, the patient had a fingerstick glucose of 18. She was given glucagon and transported to the emergency department. On arrival to the ER, the patient is minimally responsive. She is given an amp of D50 and slowly started to come to. She does report that she fell out of bed last night but does not remember when. She has no pain complaints on arrival. Patient is not on any diabetic medications such as antihypoglycemics. ROS: as above PHYSICAL EXAM: Constitutional: Patient appears in mild distress. Patient is initially a GCS of 4, but after an amp of D50 she moves all extremities and can answer questions. HENT: Head: Normocephalic and atraumatic. Eyes: EOMI, PERRL Mouth/Throat: Mucous membranes moist. Neck: Trachea midline. Neck supple. Cardiovascular: RRR, No murmurs, rubs or gallops. Intact distal pulses. Pulmonary/Chest: No respiratory distress. Breath sounds clear and equal bilaterally. No wheezes or rales. No chest wall tenderness to palpation. Abdominal: Abdomen soft, no tenderness, rebound or guarding. Back: No midline spinal tenderness, no paraspinal tenderness, no CVA tenderness. Musculoskeletal: No edema, tenderness or deformity noted. Skin: Warm and dry. Ecchymosis to left anterior shoulder. Neurological: CN II-XII grossly intact, moving all extremities equally and fully. MDM: - Vitals signs showed hypothermic. Sepsis protocol orders obtained. - History obtained via EMS, given patient's altered mental status. History as above. - Chronic conditions affecting care: alcohol abuse; aortic stenosis; HTN; depression - Differential diagnoses include, but are not limited to: Hypoglycemia; drug overdose; UTI; sepsis; pneumonia - Order placed for continuous cardiac monitoring. At this time, monitor showed rate of 81 bpm with normal sinus rhythm, per my interpretation. - External medical records reviewed. Discharge summary dated 06/25/2024 was reviewed. Patient was admitted that time secondary to a fall at home and acute metabolic encephalopathy. - EKG image interpreted by myself showed normal sinus rhythm. Rate 75 bpm. QT 440. No acute ischemic changes. - Laboratory workup interpreted by myself showed normal WBC; anemia (Hgb 11.7); normal PT/INR; slight hyponatremia (Na 135); elevated anion gap (14); elevated lactate (3.1); hypomagnesemia (Mg 1.5); hypocalcemia (Ca 7.9); elevated total bilirubin (1.3); elevated AST (248); normal procalcitonin; normal CK; normal troponin; normal TSH - Patient has history of alcohol abuse, so AST elevation likely secondary to that - Patient was initially given an amp of D50 on arrival to the emergency department with some improvement in her mental status. Her repeat fingerstick glucose after the amp of D50 was 50. She was started on D10 at 100 cc/h. On reassessment at 1500, the patient is much more interactive and alert and oriented. She does confirm the history above stating that she was trying to get out of bed this morning and around 8 AM to go to the bathroom "my body parts just were not working and I fell to the ground." She states that she could not move her body or call for help. - Patient was placed in a bear hugger for her profound hypothermia. - Given her hypothermia, blood cultures and sepsis protocol was obtained. - UA showed evidence of infection. Given 2g IV rocephin. - CXR image reviewed by myself is negative for pneumonia, per my interpretation. - CT head wo contrast negative for acute intracranial pathology - Xray left shoulder obtained. - Patient given 1L NS in ER for elevated lactate. Given 1 g IV calcium and 1 g IV magnesium for electrolyte replacement. - Discussion was had with ed case manager about patient's case and need for admission - Hospitalist consulted for admission - Patient admitted to [facility] for further evaluation and management. I have personally spent 68 minutes of critical care time in the direct management of this patient. This includes bedside care, interpretation of diagnostic studies, and testing, discussion with consultants, patient, and family members, and other required patient management activities. This 68 minutes is in excess of all separately billable procedures. ASSESSMENT AND PLAN: Diagnosis: Unresponsive episode; severe hypoglycemia; hypomagnesemia; hypokalemia; acute UTI Plan: Admit Past Med/Surg History Problem List (Updated 12/23/24 @ 15:30 by Kori Finch MD) Acute UTI (urinary tract infection) (Acute) Hypocalcemia (Acute) Severe diabetic hypoglycemia (Acute) Hypomagnesemia (Acute) Unresponsive episode (Acute) Non-compliant patient Thiamine deficiency Cough Herpes labialis Compression fracture of C7 vertebra Burst fracture of thoracic vertebra Hypomagnesemia (Acute) Compression fracture of T2 vertebra Compression fracture of T1 vertebra (Acute) Compression fracture of C7 vertebra (Acute) Closed fracture of manubrium (Acute) Aortic stenosis History of Tayler-en-Y gastric bypass Iron deficiency anemia Major depression Severe alcohol use disorder Hypomagnesemia (Acute) Low back pain (Acute) Weakness (Acute) Acute kidney injury (Acute) Fall (Acute) Anemia (Acute) Acute chest wall pain (Acute) Starvation ketoacidosis Urinary tract infection due to Klebsiella species Nausea and vomiting History of gastric bypass (Acute) Anemia (Acute) MURALI (acute kidney injury) (Acute) Vomiting and diarrhea (Acute) Syncope (Acute) Hypotension (Acute) Esophageal dysmotility Poor nutrition (Acute) Encounter for pre-operative examination Depression Alcohol intoxication (Acute) Syncope (Acute) Cholecystitis (Acute 01/09/14) Abdominal pain (Acute) Medical History Compression fracture of C7 vertebra no ROM issues per pt Thiamin deficiency Aortic stenosis pt unaware Hyponatremia GERD (gastroesophageal reflux disease) Alcohol use disorder Osteoarthritis Acid reflux Anemia History of depression Insomnia Hypertension Surgical History [place] teeth removed H/O gastric bypass History of section x 1 History of open reduction and internal fixation (ORIF) procedure right wrist--hardware in place History of total left hip replacement History of colonoscopy History of esophagogastroduodenoscopy (EGD) History of wisdom tooth extraction History of cholecystectomy H/O: hysterectomy Family History Other No family history of adverse response to anesthesia Social History Smoking Status: Unknown if ever smoked Second Hand Exposure: Yes (as child); Do You Dip or Chew Tobacco: No; Hx Alcohol Use: Yes Alcohol type: hard liquor Hx Substance Use: No Preferred Language: Divehi Communication Ability: Effective Bonsai Tender Required: No Beliefs That Will Affect Care: None Current Living Situation: Alone Current Living Situation Comment: apt Feels Safe at Home: Yes Assistive Devices: Cane, Glasses and Walker Allergies Allergies Allergy/AdvReac Type Severity Reaction Status Date / Time No Known Allergies Allergy Verified 12/16/24 13:35 Home Meds Home Medications Medication Instructions Recorded Confirmed acyclovir 5 % topical ointment 1 applic topical QID PRN Secretions 06/20/24 12/23/24 (Zovirax) valacyclovir 1 gram tablet 500 mg PO DAILY PRN Cold Sores 12/16/24 12/23/24 hydroxyzine pamoate 100 mg capsule 150 mg PO HS 12/23/24 12/23/24 lisinopril 5 mg tablet (Zestril) 10 mg PO QAM 12/23/24 12/23/24 pantoprazole 40 mg tablet,delayed 20 mg PO DAILY 12/23/24 12/23/24 release Previous Rx's Medication Instructions Recorded acetaminophen 500 mg tablet 1,000 mg (2 x 500 mg) PO Q8H PRN 02/09/24 (Tylenol Extra Strength) pain or fever #30 tabs alendronate 70 mg tablet 70 mg PO Q7D #4 tabs 02/09/24 multivitamin 1 tab PO DAILY #30 tabs 02/09/24 ondansetron 4 mg disintegrating 4 mg PO Q6H PRN nausea and 02/09/24 tablet vomiting #10 tabs quetiapine 100 mg tablet 100 mg PO HS #30 tabs 02/09/24 sertraline 50 mg tablet 150 mg (3 x 50 mg) PO HS #90 tabs 02/09/24 hydrocodone 5 mg-acetaminophen 325 1 tab PO Q6H PRN pain #10 tabs 06/29/24 mg tablet Results & Data (ED) Vital Signs Vital Signs - 24 hr 12/23/24 12:00 12/23/24 12:02 12/23/24 12:06 Temperature 33.5 C L Temperature Source Rectal Pulse Rate 79 90 Pulse Rate from SpO2 Sensor 92 H Respiratory Rate 14 21 Blood Pressure 125/82 125/82 125/82 Blood Pressure Mean 96 91 96 Pulse Oximetry 98 93 Oxygen Delivery Method Room Air Sepsis New/Unexplained Change in Mental Status Yes Sepsis Action Taken by Nursing Physician Notified 12/23/24 12:15 12/23/24 12:30 12/23/24 12:31 Temperature 33.8 C L Temperature Source Santos Cath ( Temp Sensing) Pulse Rate 87 Pulse Rate from SpO2 Sensor 86 Respiratory Rate 21 26 H Blood Pressure 136/89 166/108 H Blood Pressure Mean 104 127 Pulse Oximetry 100 Oxygen Delivery Method Sepsis New/Unexplained Change in Mental Status Sepsis Action Taken by Nursing 12/23/24 12:54 12/23/24 13:03 12/23/24 13:15 Temperature Temperature Source Pulse Rate 79 80 81 Pulse Rate from SpO2 Sensor 78 80 81 Respiratory Rate 14 14 12 Blood Pressure 148/87 H 140/89 Blood Pressure Mean 107 106 Pulse Oximetry 99 99 96 Oxygen Delivery Method Sepsis New/Unexplained Change in Mental Status Sepsis Action Taken by Nursing 12/23/24 13:18 12/23/24 13:21 12/23/24 13:36 Temperature Temperature Source Pulse Rate 80 81 105 H Pulse Rate from SpO2 Sensor 80 81 Respiratory Rate 12 15 Blood Pressure 138/90 Blood Pressure Mean 106 Pulse Oximetry 98 98 Oxygen Delivery Method Sepsis New/Unexplained Change in Mental Status Sepsis Action Taken by Nursing 12/23/24 13:42 Temperature Temperature Source Pulse Rate 81 Pulse Rate from SpO2 Sensor 81 Respiratory Rate 15 Blood Pressure 134/79 Blood Pressure Mean 97 Pulse Oximetry 96 Oxygen Delivery Method Sepsis New/Unexplained Change in Mental Status Sepsis Action Taken by Nursing Laboratory Data 12/23/24 12:39 12/23/24 12:39 Lab Results 12/23/24 12/23/24 12/23/24 Range/Units 12:09 12:22 12:39 WBC 7.03 (4.8-10.8) K/ul RBC 3.30 L (4.20-5.40) M/uL Hgb 11.7 L (12.0-16.0) g/dl Hct 35.2 L (37.0-47.0) % MCV 106.7 H (80.0-100.0) fL MCH 35.5 H (25.0-34.0) pg MCHC 33.2 (32.0-36.0) g/dL RDW Std Deviation 58.8 H (36.4-46.3) fL RDW Coeff of Cate 14.9 H (11.5-14.5) % Plt Count 263 (130-400) K/uL MPV 8.6 L (9.4-12.4) fL Immature Gran % (Auto) 0.6 % Neut % (Auto) 75.1 % Lymph % (Auto) 13.9 % [place] % (Auto) 7.3 % Eos % (Auto) 2.8 % Baso % (Auto) 0.3 % Neut # (Auto) 5.28 (1.40-6.50) K/uL Lymph # (Auto) 0.98 L (1.20-3.40) K/uL [place] # (Auto) 0.51 (0.11-0.59) K/uL Eos # (Auto) 0.20 (0.00-0.50) K/uL Baso # (Auto) 0.02 (0.00-0.20) K/uL Immature Gran # (Auto) 0.04 (0.01-0.20) K/uL PT 10.5 (9.0-12.0) Seconds INR 1.0 (0.9-1.1) APTT 29 (21-31) Seconds PTT Ratio 1.1 Sodium 134 L (136-145) mmol/L Potassium 4.3 (3.5-5.1) mmol/L Chloride 100 (98-107) mmol/L Carbon Dioxide 20 L (21-32) mmol/L Anion Gap 14 H (3-11) BUN 15 (6-23) mg/dl Creatinine 0.93 (0.6-1.2) mg/dl Est Cr Clr Drug Dosing 54.9 ml/min eGFR 66.53 BUN/Creatinine Ratio 16.1 (10-20) Glucose 188 H (70-99(Fasting)) mg/dl POC Glucose 50 L* 122 H (70-99) mg/dl Lactate 3.1 H* (0.4-2.0) mmol/L Calcium 7.9 L (8.6-10.3) mg/dl Magnesium 1.5 L (1.7-2.4) mg/dl Total Bilirubin 1.3 H (0.2-1.0) mg/dl AST 248 H (13-39) U/L ALT 40 (7-52) U/L Alkaline Phosphatase 173 H (34-104) U/L Total Creatine Kinase 37 (26-192) U/L Troponin I High Sens 5.6 (0-14) pg/ml Total Protein 5.6 L (6.0-8.3) gm/dl Albumin 3.0 L (3.4-5.0) gm/dl Globulin 2.6 (2.5-4.0) gm/dl Albumin/Globulin Ratio 1.2 (0.9-2) Procalcitonin 0.16 (0-0.5) ng/ml TSH 2.599 (0.300-4.500) uIu/ml Urine Color Urine Appearance (Clear) Urine pH (4.5-7.5) Ur Specific [place] (1.000-1.030) Urine Protein (Negative) Urine Glucose (UA) (Negative) Urine Ketones (Negative) Urine Blood (Negative) Urine Nitrite (Negative) Urine Bilirubin (Negative) Urine Urobilinogen (Negative) Ur Leukocyte Esterase (Negative) Urine WBC (Auto) (0-5) /hpf Urine RBC (Auto) (0-2) /hpf U Hyaline Cast (Auto) (0-2) /lpf U Epithel Cells (Auto) (0-2) /hpf Urine Bacteria (Auto) (None Seen) Uric Acid Crystals (None Prsent) Urine Comment 12/23/24 12/23/24 Range/Units 15:08 Unknown WBC (4.8-10.8) K/ul RBC (4.20-5.40) M/uL Hgb (12.0-16.0) g/dl Hct (37.0-47.0) % MCV (80.0-100.0) fL MCH (25.0-34.0) pg MCHC (32.0-36.0) g/dL RDW Std Deviation (36.4-46.3) fL RDW Coeff of Cate (11.5-14.5) % Plt Count (130-400) K/uL MPV (9.4-12.4) fL Immature Gran % (Auto) % Neut % (Auto) % Lymph % (Auto) % [place] % (Auto) % Eos % (Auto) % Baso % (Auto) % Neut # (Auto) (1.40-6.50) K/uL Lymph # (Auto) (1.20-3.40) K/uL [place] # (Auto) (0.11-0.59) K/uL Eos # (Auto) (0.00-0.50) K/uL Baso # (Auto) (0.00-0.20) K/uL Immature Gran # (Auto) (0.01-0.20) K/uL PT (9.0-12.0) Seconds INR (0.9-1.1) APTT (21-31) Seconds PTT Ratio Sodium (136-145) mmol/L Potassium (3.5-5.1) mmol/L Chloride (98-107) mmol/L Carbon Dioxide (21-32) mmol/L Anion Gap (3-11) BUN (6-23) mg/dl Creatinine (0.6-1.2) mg/dl Est Cr Clr Drug Dosing ml/min eGFR BUN/Creatinine Ratio (10-20) Glucose (70-99(Fasting)) mg/dl POC Glucose 160 H (70-99) mg/dl Lactate (0.4-2.0) mmol/L Calcium (8.6-10.3) mg/dl Magnesium (1.7-2.4) mg/dl Total Bilirubin (0.2-1.0) mg/dl AST (13-39) U/L ALT (7-52) U/L Alkaline Phosphatase (34-104) U/L Total Creatine Kinase (26-192) U/L Troponin I High Sens (0-14) pg/ml Total Protein (6.0-8.3) gm/dl Albumin (3.4-5.0) gm/dl Globulin (2.5-4.0) gm/dl Albumin/Globulin Ratio (0.9-2) Procalcitonin (0-0.5) ng/ml TSH (0.300-4.500) uIu/ml Urine Color Yellow Urine Appearance Clear (Clear) Urine pH 5.5 (4.5-7.5) Ur Specific [place] 1.009 (1.000-1.030) Urine Protein Negative (Negative) Urine Glucose (UA) Trace H (Negative) Urine Ketones Trace H (Negative) Urine Blood Negative (Negative) Urine Nitrite Negative (Negative) Urine Bilirubin Negative (Negative) Urine Urobilinogen Negative (Negative) Ur Leukocyte Esterase 1+ H (Negative) Urine WBC (Auto) 0-5 (0-5) /hpf Urine RBC (Auto) 0-2 (0-2) /hpf U Hyaline Cast (Auto) 0-2 (0-2) /lpf U Epithel Cells (Auto) 3-5 H (0-2) /hpf Urine Bacteria (Auto) 4+ H (None Seen) Uric Acid Crystals Present A (None Prsent) Urine Comment Administered Medications Discontinued Medications Dextrose (Dextrose 50% 50 Ml Syringe) Confirm Administered Dose 50 ml IV .STK- MED ONE Stop: 12/23/24 12:04 Last Admin: 12/23/24 13:18 Dose: Not Given Documented By: LAZARO Dextrose (Dextrose 10% 1,000 Ml Bag) Confirm Administered Dose 1,000 ml IV .STK- MED ONE Stop: 12/23/24 12:11 Last Admin: 12/23/24 13:18 Dose: Not Given Documented By: LAZARO Dextrose (Dextrose 50% 50 Ml Syringe) 50 ml IV NOW ONE Stop: 12/23/24 13:15 Last Admin: 12/23/24 12:00 Dose: 50 ml Documented By: LAZARO Sodium Chloride (Nss) 1,000 mls @ 999 mls/hr IV .Q1H1M ONE Stop: 12/23/24 14:06 Last Infusion: 12/23/24 15:12 Dose: Infused Documented By: Admin: 12/23/24 13:32 Dose: 999 mls/hr Documented By: LAZARO Calcium Gluconate () 1,000 mg in 60 mls @ 240 mls/hr IV NOW STA Stop: 12/23/24 13:51 Last Infusion: 12/23/24 15:12 Dose: Infused Documented By: Admin: 12/23/24 14:05 Dose: 240 mls/hr Documented By: LAZARO Magnesium Sulfate/Dextrose (Magnesium Sulfate / D5w) 1 gm in 100 mls @ 100 mls/hr IV NOW STA Stop: 12/23/24 14:36 Last Admin: 12/23/24 15:25 Dose: 100 mls/hr Documented By: OWEN Ceftriaxone Sodium (Rocephin) 2,000 mg in 50 mls @ 100 mls/hr IV NOW STA Stop: 12/23/24 15:22 Last Admin: 12/23/24 15:25 Dose: 100 mls/hr Documented By: OWEN Imaging Data Radiologist's Impression: Chest X-Ray 12/23/24 12:16 XR chest 1V portable CLINICAL HISTORY: unresponsive COMPARISON STUDY: 06/23/2024 FINDINGS: Stable mild cardiomegaly without pulmonary vascular congestion. No effusion, consolidation, or pneumothorax. IMPRESSION: No acute findings. ACT 112: Negative or not required by law. Electronically signed by: Pardeep Collier M.D. 12/23/2024 1:[address] 12/23/24 12:16 CT head/brain wo con CLINICAL HISTORY: unresponsive. TECHNIQUE: Multiple axial CT images of the head were obtained without contrast. A dose lowering technique was utilized adhering to the principles of ALARA. CT DOSE: 1250.21 mGy.cm COMPARISON: 06/20/2024 FINDINGS: No intracranial hemorrhage seen. No mass effect, midline shift, or hydrocephalus. No skull fracture seen. Visualized paranasal sinuses and mastoid air cells are clear. IMPRESSION: No acute findings. ACT 112: Negative or not required by law. The above report was generated using voice recognition software. It may contain grammatical, syntax or spelling errors. Electronically signed by: Pardeep Collier M.D. 12/23/2024 2:27 PM Discharge Plan Visit Data Chief Complaint: Unresponsive ED Provider: Kori Finch Discharge Problem: Unresponsive episode, Hypomagnesemia, Severe diabetic hypoglycemia, Hypocalcemia, Acute UTI (urinary tract infection) Condition: Fair Forms Stand Alone Forms: [facility] Prescriptions Prescriptions: No Action sertraline 50 mg Tablet 150 mg PO HS Qty: 90 1RF multivitamin Tablet 1 tab PO DAILY Qty: 30 1RF alendronate 70 mg tablet 70 mg PO Q7D Qty: 4 1RF quetiapine 100 mg tablet 100 mg PO HS Qty: 30 0RF acetaminophen [Tylenol Extra Strength] 500 mg Tablet 1,000 mg PO Q8H PRN (Reason: pain or fever) Qty: 30 0RF Rx Instructions: max 3000mg in 24 hours ondansetron 4 mg tablet,disintegrating 4 mg PO Q6H PRN (Reason: nausea and vomiting) Qty: 10 0RF acyclovir [Zovirax] 5 % ointment 1 applic topical QID PRN (Reason: Secretions) Rx Instructions: apply until cold sores are resolved. hydrocodone-acetaminophen 5-325 mg Tablet 1 tab PO Q6H PRN (Reason: pain) Qty: 10 0RF valacyclovir 1 gram tablet 500 mg PO DAILY PRN (Reason: Cold Sores) hydroxyzine pamoate 100 mg capsule 150 mg PO HS pantoprazole 40 mg tablet,delayed release (DR/EC) 20 mg PO DAILY lisinopril [Zestril] 5 mg tablet 10 mg PO QAM Patient Comments: no longer taking 12/16/24 Referrals Referrals: Emily Diehl PA-C [Primary Care Provider] -
[2024-12-23] MEDS: CALCIUM GLUCONATE 1,000 MG/60 ML BAG IV STA (14:05)
--- NOTE | 2024-12-23 14:29 | CT Scan Report ---
CT head/brain wo con CLINICAL HISTORY: unresponsive. TECHNIQUE: Multiple axial CT images of the head were obtained without contrast. A dose lowering tech nique was utilized adhering to the principles of ALARA. CT DOSE: 1250.21 mGy.cm COMPARISON: 06/20/2024 FINDINGS: No intracranial hemorrhage seen. No mass effect, midline shift, or hydrocephalus. No skull fracture seen. Visualized paranasal sinuses and mastoid air cells are clear. IMPRESSION: No acute findings. ACT 112: Negative or not required by law. The above report was generated using voice recognition software. It may contain grammatical, syntax o r spelling errors. Electronically signed by: Pardeep Collier M.D. 12/23/2024 2:27 PM
[2024-12-23] MEDS: MAGNESIUM SULFATE / D5W 1 GM/100 ML BAG IV STA (15:25)
[2024-12-23] MEDS: cefTRIAXone SODIUM 2,000 MG/50 ML BAG IV STA (15:25)
--- NOTE | 2024-12-23 15:27 | History & Physical Report ---
"Date of Service December 23, 2024 Assessment & Plan (1) Hypoglycemia: (2) Acute metabolic encephalopathy: (3) Acute UTI (urinary tract infection): (4) Severe alcohol use disorder: (5) Hypocalcemia: (6) History of Tayler-en-Y gastric bypass: (7) Dysphagia: Plan This is a 69-year-old female who presented on 12/23 for an unresponsive episode. Thought to be secondary to hypoglycemia in the setting of alcohol use. 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 mag #UTI UA positive with 4+ bacteria on arrival UCx on 07/21/2023 revealed Klebsiella pneumonia with resistance to penicillins, cefazolin; sensitive to ceftriaxone UCx on 11/17/2023 revealed pansensitive E. coli Ceftriaxone 2000 mg IV Follow current UCx #Megaloblastic anemia Hgb 11.7 on arrival; MCV 106.7 No active bleeding Patient reports she is not currently taking her folate/vitamin B supplementation Vitamin B12 and folate levels ordered, pending #Dysphagia Patient was scheduled for an upcoming EGD next month Reports poor p.o. intake at home due to dysphagia Speech therapy consult appreciated Pending eval, patient may require GI consult for EGD Easy to chew diet for now Aspiration precautions #History of Tayler-en-Y gastric bypass Noted; dietitian consulted for nutritional assessment #Anxiety/depression Continue sertraline, hydroxyzine, and quetiapine Disposition: Admit to PCU telemetry VTE PPx: Lovenox 40 mg SQ q24h History of Present Illness Chief Complaint: Unresponsive Primary Care Provider: Emily Diehl Mrs. Nielsen is a 69-year-old female with PMH of severe alcohol use disorder, poor nutrition, major depression, syncope, gastric bypass (Tayler-en-Y), starvation ketoacidosis, and aortic stenosis. She presented on 12/23 after being found unresponsive on the ground by her daughter at 11 AM. BSG was 18 on EMS arrival. Last known well 1530 yesterday on 12/22. Patient lives at [facility] (independent living). She reports that she felt fine when she went to bed last night. Then she woke up around 8 AM, and had trouble getting up. She slid out of bed, was unable to get up on her own, and passed out. Patient reports she has had difficulty swallowing over the past several months; this is also led to low appetite. She was scheduled to have an EGD done next month. Patient denies striking her head when she slid out of bed this morning; she reports she was simply too weak to get back up. She denies prior history of UTIs. However, she reports that she started having urinary incontinence approximately 6 months ago. This occurs monthly. Patient reports she was drinking alcohol last night; reports she had 1 rum and coke. She does endorse history of significant alcohol use, and reports her last rehab was in 2021; she is unsure when her last break from alcohol was. History of alcohol withdrawal. No history of alcohol withdrawal seizures, but she does report she has been having visual hallucinations this week on Friday and Friday; she reports she was seeing people who were not there. She is currently trying to taper herself off of alcohol. Patient did not take her regular morning medicine today. She has thiamine and folate supplementation, but she reports she has not been taking them. The only recent change in medication is that she was restarted on lisinopril recently. Patient was hypothermic at 33.8 C on arrival; vitals otherwise stable. ED course: NSS 1000 mL IV Dextrose 50 mL IV Calcium gluconate 1000 mg IV Magnesium sulfate 1 g IV Ceftriaxone 2000 mg IV ROS: Patient endorses night-sweats x 3-4 months (occurs a couple times per month), dizziness, lightheadedness, productive cough (light yellow sputum production), intermittent dry heaves, and new-onset urinary incontinence x 6months (occuring approximately once per month). Patient denies fever, chills, PARNELL, changes in vision (blurry vision, double vision, photophobia), chest pain, SOB, chest palpitations, hemoptysis, pleuritic CP, abdominal pain, N/V/D, burning with urination, blood in the urine/stool, saddle anesthesia, numbness/tingling in the groin region. Allergies Allergy/AdvReac Type Severity Reaction Status Date / Time No Known Allergies Allergy Verified 12/24/24 11:58 Home Medications Medication Instructions Recorded Confirmed Type acetaminophen 500 mg tablet 1,000 mg (2 x 500 mg) PO Q8H PRN 02/09/24 12/23/24 Rx (Tylenol Extra Strength) pain or fever #30 tabs alendronate 70 mg tablet 70 mg PO Q7D #4 tabs 02/09/24 12/23/24 Rx multivitamin 1 tab PO DAILY #30 tabs 02/09/24 12/23/24 Rx ondansetron 4 mg disintegrating 4 mg PO Q6H PRN nausea and 02/09/24 12/23/24 Rx tablet vomiting #10 tabs quetiapine 100 mg tablet 100 mg PO HS #30 tabs 02/09/24 12/23/24 Rx sertraline 50 mg tablet 150 mg (3 x 50 mg) PO HS #90 tabs 02/09/24 12/23/24 Rx acyclovir 5 % topical ointment 1 applic topical QID PRN Secretions 06/20/24 12/23/24 History (Zovirax) hydrocodone 5 mg-acetaminophen 325 1 tab PO Q6H PRN pain #10 tabs 06/29/24 12/23/24 Rx mg tablet valacyclovir 1 gram tablet 500 mg PO DAILY PRN Cold Sores 12/16/24 12/23/24 History hydroxyzine pamoate 100 mg capsule 150 mg PO HS 12/23/24 12/23/24 History lisinopril 5 mg tablet (Zestril) 10 mg PO QAM 12/23/24 12/23/24 History pantoprazole 40 mg tablet,delayed 20 mg PO DAILY 12/23/24 12/23/24 History release Past Med/Surg History Problem List Dysphagia Acute UTI (urinary tract infection) (Acute) Hypocalcemia (Acute) Severe diabetic hypoglycemia (Acute) Hypomagnesemia (Acute) Unresponsive episode (Acute) Non-compliant patient Thiamine deficiency Cough Herpes labialis Compression fracture of C7 vertebra Burst fracture of thoracic vertebra Hypomagnesemia (Acute) Compression fracture of T2 vertebra Compression fracture of T1 vertebra (Acute) Compression fracture of C7 vertebra (Acute) Closed fracture of manubrium (Acute) Aortic stenosis History of Tayler-en-Y gastric bypass Iron deficiency anemia Major depression Severe alcohol use disorder Hypomagnesemia (Acute) Low back pain (Acute) Weakness (Acute) Acute kidney injury (Acute) Fall (Acute) Anemia (Acute) Acute chest wall pain (Acute) Starvation ketoacidosis Urinary tract infection due to Klebsiella species Nausea and vomiting History of gastric bypass (Acute) Anemia (Acute) MURALI (acute kidney injury) (Acute) Vomiting and diarrhea (Acute) Syncope (Acute) Hypotension (Acute) Esophageal dysmotility Poor nutrition (Acute) Encounter for pre-operative examination Depression Alcohol intoxication (Acute) Syncope (Acute) Cholecystitis (Acute 01/09/14) Abdominal pain (Acute) Medical History Compression fracture of C7 vertebra no ROM issues per pt Thiamin deficiency Aortic stenosis pt unaware Hyponatremia GERD (gastroesophageal reflux disease) Alcohol use disorder Osteoarthritis Acid reflux Anemia History of depression Insomnia Hypertension Surgical History [place] teeth removed H/O gastric bypass History of section x 1 History of open reduction and internal fixation (ORIF) procedure right wrist--hardware in place History of total left hip replacement History of colonoscopy History of esophagogastroduodenoscopy (EGD) History of wisdom tooth extraction History of cholecystectomy H/O: hysterectomy Family History Other No family history of adverse response to anesthesia Social History Smoking Status: Never smoker Second Hand Exposure: Yes (as child); Do You Dip or Chew Tobacco: No; Hx Alcohol Use: Yes Alcohol type: hard liquor Hx Substance Use: No Preferred Language: Upper Sorbian Communication Ability: Effective Plastic Technician Required: No Beliefs That Will Affect Care: None Current Living Situation: Alone Current Living Situation Comment: Independent Living facility Other Information That Helps Us Care for You: No Feels Safe at Home: Yes Safety Concerns: Feels Safe At This Time Assistive Devices: Walker Review of Systems Review of Systems: See HPI above Physical Exam Physical Exam: General: no acute distress; non-toxic appearing; frail appearing; cachectic; SpO2 98% on RA HEENT: normocephalic, atraumatic; no scleral icterus; PERRLA w/ EOMs intact; vision and hearing intact Neck: supple; trachea midline Skin: Cold, dry without signs of tenting; no cyanosis; no rashes, bruising, lesions, or erythema noted CV: chest wall NTP; RRR; S1/S2 normal; no murmurs/rubs/gallops; pulses intact and symmetric at radial, DP, and PT Lungs: no acute respiratory distress; symmetrical chest wall expansion; clear breath sounds across all lung dotson w/o adventitious sounds; no wheezing ABD: Soft, NTP; BS present; no rebound/guarding; no distention MSK: no tics or fasciculations; no edema noted in the LEs b/l, nonerythematous; 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 Neuro: A&Ox3; normal mood and affect; fluent speech; no focal deficits; patient reports sensation is intact and symmetric in the upper extremities and lower extremity bilaterally Results & Data Results & Data Vital Signs (Past 12 Hours) Vital Signs Temp Pulse Resp BP Pulse Ox O2 Del Method 12/23/24 13:42 81 15 134/79 96 12/23/24 13:36 105 H 15 98 12/23/24 13:21 81 12/23/24 13:18 80 12 138/90 98 12/23/24 13:15 81 12 96 12/23/24 13:03 80 14 140/89 99 12/23/24 12:54 79 14 148/87 H 99 12/23/24 12:31 33.8 C L 12/23/24 12:30 26 H 166/108 H 12/23/24 12:15 87 21 136/89 100 12/23/24 12:06 90 21 125/82 93 12/23/24 12:02 125/82 12/23/24 12:00 33.5 C L 79 14 125/82 98 Room Air Laboratory Results Abnormal lab results 12/23/24 12/23/24 12/23/24 Range/Units 12:09 12:22 12:39 RBC 3.30 L (4.20-5.40) M/uL Hgb 11.7 L (12.0-16.0) g/dl Hct 35.2 L (37.0-47.0) % MCV 106.7 H (80.0-100.0) fL MCH 35.5 H (25.0-34.0) pg RDW Std Deviation 58.8 H (36.4-46.3) fL RDW Coeff of Cate 14.9 H (11.5-14.5) % MPV 8.6 L (9.4-12.4) fL Lymph # (Auto) 0.98 L (1.20-3.40) K/uL Sodium 134 L (136-145) mmol/L Carbon Dioxide 20 L (21-32) mmol/L Anion Gap 14 H (3-11) Glucose 188 H (70-99(Fasting)) mg/dl POC Glucose 50 L* 122 H (70-99) mg/dl Lactate 3.1 H* (0.4-2.0) mmol/L Calcium 7.9 L (8.6-10.3) mg/dl Magnesium 1.5 L (1.7-2.4) mg/dl Total Bilirubin 1.3 H (0.2-1.0) mg/dl AST 248 H (13-39) U/L Alkaline Phosphatase 173 H (34-104) U/L Total Protein 5.6 L (6.0-8.3) gm/dl Albumin 3.0 L (3.4-5.0) gm/dl Urine Glucose (UA) (Negative) Urine Ketones (Negative) Ur Leukocyte Esterase (Negative) U Epithel Cells (Auto) (0-2) /hpf Urine Bacteria (Auto) (None Seen) Uric Acid Crystals (None Prsent) 12/23/24 12/23/24 Range/Units 15:08 Unknown RBC (4.20-5.40) M/uL Hgb (12.0-16.0) g/dl Hct (37.0-47.0) % MCV (80.0-100.0) fL MCH (25.0-34.0) pg RDW Std Deviation (36.4-46.3) fL RDW Coeff of Cate (11.5-14.5) % MPV (9.4-12.4) fL Lymph # (Auto) (1.20-3.40) K/uL Sodium (136-145) mmol/L Carbon Dioxide (21-32) mmol/L Anion Gap (3-11) Glucose (70-99(Fasting)) mg/dl POC Glucose 160 H (70-99) mg/dl Lactate (0.4-2.0) mmol/L Calcium (8.6-10.3) mg/dl Magnesium (1.7-2.4) mg/dl Total Bilirubin (0.2-1.0) mg/dl AST (13-39) U/L Alkaline Phosphatase (34-104) U/L Total Protein (6.0-8.3) gm/dl Albumin (3.4-5.0) gm/dl Urine Glucose (UA) Trace H (Negative) Urine Ketones Trace H (Negative) Ur Leukocyte Esterase 1+ H (Negative) U Epithel Cells (Auto) 3-5 H (0-2) /hpf Urine Bacteria (Auto) 4+ H (None Seen) Uric Acid Crystals Present A (None Prsent) Diagnostic Findings Chest X-Ray 12/23/24 12:16 XR chest 1V portable CLINICAL HISTORY: unresponsive COMPARISON STUDY: 06/23/2024 FINDINGS: Stable mild cardiomegaly without pulmonary vascular congestion. No effusion, consolidation, or pneumothorax. IMPRESSION: No acute findings. ACT 112: Negative or not required by law. Electronically signed by: Pardeep Collier M.D. 12/23/2024 1:[address] 12/23/24 12:16 CT head/brain wo con CLINICAL HISTORY: unresponsive. TECHNIQUE: Multiple axial CT images of the head were obtained without contrast. A dose lowering technique was utilized adhering to the principles of ALARA. CT DOSE: 1250.21 mGy.cm COMPARISON: 06/20/2024 FINDINGS: No intracranial hemorrhage seen. No mass effect, midline shift, or hydrocephalus. No skull fracture seen. Visualized paranasal sinuses and mastoid air cells are clear. IMPRESSION: No acute findings. ACT 112: Negative or not required by law. The above report was generated using voice recognition software. It may contain grammatical, syntax or spelling errors. Electronically signed by: Pardeep Collier M.D. 12/23/2024 2:27 PM ECG Additional Comments: ECG revealed sinus rhythm with PACs at 75 bpm; QTc 491 Code Status & VTE Plan Code Status Full code VTE Prophylaxis Plan VTE Prophylaxis will be ordered: Yes Supervising Physician Co-Signing Physician Notes Attending Attestation & Admit Note: Pt seen/examined, chart reviewed, care plan d/w ИРИНА Wheatley. I agree w/ the galo components of his admission documentation with the following additions - ##acute metabolic encephalopathy 2nd to severe hypoglycemia & hypothermia## 69yo female - well known to me from prior hospitalizations - with history of alcoholism, prior gastric bypass procedure, depression. Presented from [facility] after she was found unresponsive in her living quarters. Upon EMS arrival to [facility] BSG by report was 18 and she was hypothermic. Temp upon presentation to [facility] was 33.5. Glucose was markedly improved upon presentation with serum glucose of 188 on initial lab draw. I saw the patient after ER stabilization and upon admission to the telemetry unit. She was feeling significantly better. Main complaints are that of dysphagia, early satiety, nausea, and poor appetite for several months. She has [facility] locally in [place] and she had upcoming EGD. In addition, she has been having left knee pain due to meniscal tear and was to have arthroscopic knee surgery tomorrow with Dr Madden. She admits to ongoing etoh use - at least 3x's/week - while living at [facility]. Drinks liquor. PMH/PSH/allergies/meds/sochx - reviewed Vitals now stable with resolution of hypothermia, o2 sats wnl gen - lying in bed, NAD neck - no JVD mouth - MMM heart - RRR, s1 s2, 2/6 systolic murmur RUSB lungs - CTA b/l abd - soft NT ND BS+; no HSM ext - no edema, pulses 2+ b/l feet psych - a/o x 3 labs reviewed imaging reviewed EKG - NSR, PVC, NS ST changes III/AVF A/P: 1. severe hypoglycemia - likely due to severely limited intake in the setting of alcoholism, stress from UTI, alcoholic hepatitis, potentially other factors. She is not on any diabetic agents or insulins. Rapidly improved with supplemental glucose and now glucose levels are high. 2. hypothermia - likely due to #1; UTI also a possible contributor. TSH is wnl. Consider cortisol level. 3. dysphagia with early satiety, bloating, nausea, anorexia - will ask [facility] to see in consult tomorrow for consideration of EGD while hospitalized. NPO after MN tonight. Increase PPI to BID dosing and add QID carafate as well. ?anastomotic ulcer? other? 4. alcoholism - would benefit from inpatient rehab once again. She did such in 2023. 5. acute metabolic encephalopathy - 2nd to #1, #2, UTI, etc. IMPROVED. other plans per Mr Dioni Winston MD PG Care Time/CCT Total # of Minutes Spent Total Time Spent with Patient: Total time spent is greater than 50% in coordination of care (as documented) at patient's floor/unit and/or counseling patient: C[place] [address] INT INP/OBS CARE 3/75MIN Patient Type Established Medical Decision Making High Complexity Diagnoses Hypoglycemia E16.2 Acute metabolic encephalopathy G93.41 Acute UTI (urinary tract infection) N39.0 Severe alcohol use disorder F10.20 Hypocalcemia E83.51 History of Tayler-en-Y gastric bypass Z98.84 Dysphagia R13.10"
[2024-12-23] MEDS ORDERED: Ativan IV Alcohol Withdrawal--Active Protocol IV PRN (16:01)
[2024-12-23] MEDS ORDERED: LORazepam 2 MG/1 ML VIAL IV PRN ×3 (16:01)
[2024-12-23] MEDS: MAGNESIUM SULFATE / D5W 1 GM/100 ML BAG IV ONE (17:06)
[2024-12-23 17:13] LABS: Folate (Folic Acid),Ser orPlas 11.05 ng/ml (>5.38)
[2024-12-23] MEDS: FOLIC ACID 1 MG in SYRINGE 9.8 ML IV STA (17:19)
[2024-12-23] MEDS: THIAMINE HCL 500 MG in SODIUM CHLORIDE 0.9% 50 ML IV ONE (17:19)
--- NOTE | 2024-12-23 18:26 | XRay Report ---
EXAM: XR shoulder LT min 2V routine CLINICAL HISTORY: Left shoulder pain s/p fall. TECHNIQUE: X-ray images of the left shoulder were obtained in anteroposterior (AP) internal/external rotation, and Y-view projections. COMPARISON: X-ray 11/15/2023 and 09/27/2022. FINDINGS: Bone Structure: Bone structure is aligned. No evidence of acute shoulder bone fractures or dislocation. The humeral head is properly positioned in the glenoid fossa. Joint Spaces: Moderate narrowing of the left acromioclavicular joint with osteophyte formations and cortical irregularity at the articular surface of the clavicle. The glenohumeral joint appears unremarkable. Soft Tissues: Soft tissues appear normal and unremarkable. No soft tissue swelling, calcifications, or foreign bodies noted. Old fracture of the left 5th lateral rib with callus formation. IMPRESSION: 1. No acute fracture or dislocation. 2. Moderate osteoarthritic changes of the AC joint, mild interval progression from prior. 3. Old fracture of the left 5th lateral rib. Disclaimer: A subtle bone abnormality or fracture may not be readily apparent on X-rays; thus clinical correlation and further imaging, including follow-up CT, MRI, or follow-up X-rays are advised as needed. Electronically signed by Juan José Hernández 12-23-2024 6:25 PM
[2024-12-23] MEDS: ONDANSETRON INJ 2 MG/ML 2 ML VIAL IV PRN (19:31)
[2024-12-23] MEDS: HYDROCODONE/ACETAMOPHEN 5/325MG TAB PO PRN (20:20)
[2024-12-23] MEDS: hydrOXYzine HCl 25 MG TAB PO SCH (20:21)
[2024-12-23] MEDS: ENOXAPARIN INJ 40 MG/0.4 ML SYR SQ SCH (20:21)
[2024-12-23] MEDS: QUEtiapine FUMARATE 100 MG TABLET PO SCH (20:22)
[2024-12-23] MEDS: SERTRALINE HCL 50 MG TABLET PO SCH (20:22)
[2024-12-23] MEDS ORDERED: hydrOXYzine HCl 25 MG TAB PO SCH (21:00)
[2024-12-23] MEDS: PANTOprazole 40 MG TAB PO SCH (21:28)
[2024-12-23] MEDS: SUCRALFATE 1 GM/10 ML UDC PO SCH (21:28)
[2024-12-24 05:43] LABS: Basophils # (auto) 0.03 K/uL (0.00-0.20); Basophils % (auto) 0.5 %; Eosinophils # (auto) 0.04 K/uL (0.00-0.50); Eosinophils % (auto) 0.7 %; Hematocrit (blood only) 28.5 % (37.0-47.0); Hemoglobin 9.8 g/dl (12.0-16.0); Immature Granulocytes # (auto) 0.02 K/uL (0.01-0.20); Immature Granulocytes % (auto) 0.4 %; Lymphocytes # (auto) 1.57 K/uL (1.20-3.40); Lymphocytes % (auto) 27.7 %; Mean Corpuscular Hemoglobin 35.3 pg (25.0-34.0); Mean Corpuscular Hgb Conc 34.4 g/dL (32.0-36.0); Mean Corpuscular Volume 102.5 fL (80.0-100.0); Mean Platelet Volume 8.8 fL (9.4-12.4); Monocytes % (auto) 14.1 %; Neutrophils # (auto) 3.21 K/uL (1.40-6.50); Neutrophils % (auto) 56.6 %; Platelet Count 214 K/uL (130-400); RDW Coefficient of Variation 14.6 % (11.5-14.5); RDW Standard Deviation 54.1 fL (36.4-46.3); Red Blood Count 2.78 M/uL (4.20-5.40); White Blood Count 5.67 K/ul (4.8-10.8)
[2024-12-24 06:07] LABS: Albumin Globulin Ratio 1.1 (0.9-2); BUN Creatinine Ratio 22.1 (10-20); Bilirubin,Total 0.7 mg/dl (0.2-1.0); Calcium 7.8 mg/dl (8.6-10.3); Creatinine Clr Calc Pharmacy 74.5 ml/min; Magnesium 1.8 mg/dl (1.7-2.4); Potassium 4.2 mmol/L (3.5-5.1); Total Protein 4.3 gm/dl (6.0-8.3)
--- NOTE | 2024-12-24 06:17 | Electrocardiogram Report ---
Test Reason : Blood Pressure : */* mmHG Vent. Rate : 75 BPM Atrial Rate : 75 BPM P-R Int : 174 ms QRS Dur : 88 ms QT Int : 440 ms P-R-T Axes : * -14 -21 degrees QTcB Int : 491 ms Sinus rhythm with Premature ventricular complexes Cannot rule out Inferior infarct , age undetermined Abnormal ECG When compared with ECG of 20-Jun-2024 07:01, Premature ventricular complexes are now Present Inverted T waves have replaced nonspecific T wave abnormality in Inferior leads Confirmed by Hector Conteh ([id number]) on 12/24/2024 6:17:37 AM Referred By: REFERRED SELF Confirmed By: Hector Conteh
[2024-12-24] MEDS: FOLIC ACID 1 MG TAB PO SCH (08:15)
[2024-12-24] MEDS: THIAMINE HCL 100 MG TAB PO SCH (08:15)
[2024-12-24] MEDS: lisinopril 10 MG TAB PO SCH (08:16)
[2024-12-24] MEDS ORDERED: PANTOprazole 40 MG TAB PO SCH (09:00)
[2024-12-24 09:07] LABS: A calco-baum cmplx NotReported Not Detected (NotDetected); Bact fragilis Not Reported Not Detected (NotDetected); Blood Culture Id Panel See PCR Comment (NotDetected); C auris Not Reported Not Detected (NotDetected); Calbicans Not Reported Not Detected (NotDetected); Candida glabrata Not Reported Not Detected (NotDetected); Candida krusei Not Reported Not Detected (NotDetected); Cneoformans/gatti Not Reported Not Detected (NotDetected); Cparapsilosis Not Reported Not Detected (NotDetected); Ctropicalis Not Reported Not Detected (NotDetected); E cloacae compx Not Reported Not Detected (NotDetected); Efaecalis Not Reported Not Detected (NotDetected); Efaecium Not Reported Not Detected (NotDetected); Enterobacterales Not Reported Not Detected (NotDetected); Escherichia coli Not Reported Not Detected (NotDetected); H influenzae Not Reported Not Detected (NotDetected); K aerogenes Not Reported Not Detected (NotDetected); Koxytoca Not Reported Not Detected (NotDetected); Kpneumoniae grp Not Reported Not Detected (NotDetected); Lmonocyt Not Reported Not Detected (NotDetected); N meningitidis Not Reported Not Detected (NotDetected); P aeruginosa Not Reported Not Detected (NotDetected); Proteus spp Not Reported Not Detected (NotDetected); Salmonella spp Not Reported Not Detected (NotDetected); Staph lugdunensis Not Reported Not Detected (NotDetected); Staph spp. Not Reported DETECTED (NotDetected); Staphaureus Not Reported Not Detected (NotDetected); Staphepi Not Reported Not Detected (NotDetected); Stenmaltophilia Not Reported Not Detected (NotDetected); Strep agal(GrpB) Not Reported Not Detected (NotDetected); Strep pneum Not Reported Not Detected (NotDetected); Strep pyog (GrpA) Not Reported Not Detected (NotDetected); Strep spp Not Reported Not Detected (NotDetected)
[2024-12-24 09:54] LABS: Staphylococcus spp. DETECTED (NotDetected)
--- NOTE | 2024-12-24 10:26 | Hospitalist Progress Note ---
Date of Service December 24, 2024 Assessment & Plan (1) Acute UTI (urinary tract infection): Plan: UA positive with 4+ bacteria on arrival UCx on 07/21/2023 revealed Klebsiella pneumonia with resistance to penicillins, cefazolin; sensitive to ceftriaxone UCx on 11/17/2023 revealed pansensitive E. coli Ceftriaxone 2000 mg IV Follow current UCx (2) Hypocalcemia: Plan: repleted (3) Severe diabetic hypoglycemia: Plan: -2nd to etoh abuse and poor PO intake -BGL stable -encourage po intake (4) Severe alcohol use disorder: Plan: AWSS active protocol with lorazepam PRN Daily thiamine and folate supplementation (5) History of Tayler-en-Y gastric bypass: Plan: -dietitian consulted (6) Dysphagia: Plan: -GI consulted for EGD Plan This is a 69-year-old female who presented on 12/23 for an unresponsive episode. Thought to be secondary to hypoglycemia in the setting of alcohol use. Admission and Anticipated Discharge Date Admission Date: December 23, 2024 Subjective No events overnight, pt resting comfortably in bed. Review of Systems Review of Systems: CONST: Negative for fever, body aches and chills. HENT: Negative for neck pain/stiffness, headache, congestion, sore throat, swelling. EYES: Negative for discharge/pain or vision changes. RESP: Negative for cough/hemoptysis and shortness of breath. CV: Negative chest pain, difficulty breathing, palpitations. ABD: Negative pain, nausea, vomiting. : Negative increase frequency, dysuria, blood in urine or stool. MUSC: Negative for muscle aches, edema. SKIN: Negative rash, lesions/sores. NEURO: Negative headache, dizziness, weakness. Physical Exam Physical Exam: GENERAL APPEARANCE NAD, activity normal for age, well developed/ well nourished, no cyanosis, pallor, or diaphoresis. EYES lids/conjunctiva normal. EARS/NOSE/THROAT Mucous membranes moist, nares normal, lips/teeth normal uvula midline without oral pharyngeal erythema, exudate or swelling TMs normal bilaterally. No lymphangitis/lymphedema. HEAD/NECK normocephalic atraumatic, no facial trauma, neck is supple. RESPIRATORY respiratory effort normal, speaks in full sentences, no tripod position, no accessory muscle use. Lungs clear to auscultation without rhonchi, wheezes, rales CARDIAC Regular rate and rhythm, no edema. ABDOMINAL Soft, ND/NT. No evidence of fluid wave. No pulsatile masses on exam, rebound tenderness, Perez sign or pain over Mcburney's point. MUSCLES/EXTREMITIES No abnormal range of motion, no swelling. SKIN Warm, pink and dry. No rashes, dermatoses, petechiae or lesions. NEUROLOGICAL Speech is clear and appropriate. Normal level of consciousness. Gait and coordination are normal. 5/5 strength in all extremities. PSYCH Normal mood and affect. Judgement/competence is appropriate Results & Data Results & Data Vital Signs (Past 12 Hours) Vital Signs Temp Pulse Pulse Resp BP Pulse Ox O2 Del Method 12/24/24 09:42 77 12/24/24 07:54 36.5 C 80 22 107/68 95 Room Air 12/24/24 03:34 36.4 C L 81 18 100/67 95 Room Air 12/23/24 23:28 36.5 C 83 18 101/69 94 Room Air PG Care Time/CCT Total # of Minutes Spent Total Time Spent with Patient: Total time spent is greater than 50% in coordination of care (as documented) at patient's floor/unit and/or counseling patient: Coding Level of Care Code 85931 SUB INP/OBS CARE 2/35MIN Diagnoses Acute UTI (urinary tract infection) N39.0 Hypocalcemia E83.51 Severe diabetic hypoglycemia E11.649 Severe alcohol use disorder F10.20 History of Tayler-en-Y gastric bypass Z98.84 Dysphagia R13.10
--- NOTE | 2024-12-24 12:07 | Anesthesiology Consultation ---
Date of Service December 24, 2024 Assessment & Plan Chart Review Chart Review: Acceptable Risk for Surgery and Patient NOT seen in Pre Admission Testing Consults Requested none ASA ASA4 Proposed Anesthesia Anesthesia Type: MAC Risk / Benefits Reviewed With: PT / POA / Parent / Guardian, Accepts Plan and Informed Consent Obtained History Surgery Operation Date: 12/24/24 17:00 Proposed Procedures p Esophagogastroduodenoscopy Dr. Sugey Mayes Jr, MD Height/Weight Height: 5 ft 4 in Weight: 69 kg Allergies Allergy/AdvReac Type Severity Reaction Status Date / Time No Known Allergies Allergy Verified 12/24/24 11:58 Medications Home Medications Medication Instructions Recorded Confirmed Last Taken acetaminophen 500 mg tablet 1,000 mg (2 x 500 mg) PO Q8H PRN 02/09/24 12/23/24 Unknown (Tylenol Extra Strength) pain or fever #30 tabs alendronate 70 mg tablet 70 mg PO Q7D #4 tabs 02/09/24 12/23/24 Unknown multivitamin 1 tab PO DAILY #30 tabs 02/09/24 12/23/24 Unknown ondansetron 4 mg disintegrating 4 mg PO Q6H PRN nausea and 02/09/24 12/23/24 Unknown tablet vomiting #10 tabs quetiapine 100 mg tablet 100 mg PO HS #30 tabs 02/09/24 12/23/24 Unknown sertraline 50 mg tablet 150 mg (3 x 50 mg) PO HS #90 tabs 02/09/24 12/23/24 Unknown acyclovir 5 % topical ointment 1 applic topical QID PRN Secretions 06/20/24 12/23/24 Unknown (Zovirax) hydrocodone 5 mg-acetaminophen 325 1 tab PO Q6H PRN pain #10 tabs 06/29/24 12/23/24 Unknown mg tablet valacyclovir 1 gram tablet 500 mg PO DAILY PRN Cold Sores 12/16/24 12/23/24 Unknown hydroxyzine pamoate 100 mg capsule 150 mg PO HS 12/23/24 12/23/24 Unknown lisinopril 5 mg tablet (Zestril) 10 mg PO QAM 12/23/24 12/23/24 Unknown pantoprazole 40 mg tablet,delayed 20 mg PO DAILY 12/23/24 12/23/24 Unknown release Active Medications Generic Name Dose Route Start Last Admin Trade Name Freq PRN Reason Stop Dose Admin Hydrocodone Bitart/Acetaminophen 1 tab 12/23/24 19:12 12/24/24 08:14 Hydrocodone/Acetamophen 5/325mg Tab PO 01/06/25 19:11 1 tab Q6H PRN Administration pain Enoxaparin Sodium 40 mg 12/23/24 21:00 12/23/24 20:21 Enoxaparin Inj 40 Mg/0.4 Ml Syr SQ 01/22/25 20:59 40 mg Q24H BARBARA Administration Folic Acid 1 mg 12/24/24 09:00 12/24/24 08:15 Folic Acid 1 Mg Tab PO 01/23/25 08:59 1 mg QAM BARBARA Administration Hydroxyzine HCl 100 mg 12/23/24 21:00 12/23/24 20:21 Hydroxyzine Hcl 25 Mg Tab PO 01/22/25 20:59 100 mg HS BARBARA Administration Lisinopril 10 mg 12/24/24 09:00 12/24/24 10:00 Lisinopril 10 Mg Tab PO 01/23/25 08:59 Not Given QAM BARBARA Ondansetron HCl 4 mg 12/23/24 19:12 12/23/24 19:31 Ondansetron Inj 2 Mg/Ml 2 Ml Vial IV 01/22/25 19:11 4 mg Q6H PRN Administration Nausea Pantoprazole Sodium 40 mg 12/23/24 21:00 12/24/24 08:15 Pantoprazole 40 Mg Tab PO 01/22/25 20:59 40 mg BID BARBARA Administration Quetiapine Fumarate 100 mg 12/23/24 21:00 12/23/24 20:22 Quetiapine Fumarate 100 Mg Tablet PO 01/22/25 20:59 100 mg HS BARBARA Administration Sertraline HCl 150 mg 12/23/24 21:00 12/23/24 20:22 Sertraline Hcl 50 Mg Tablet PO 01/22/25 20:59 150 mg HS BARBARA Administration Sucralfate 1 gm 12/23/24 21:00 12/24/24 11:41 Sucralfate 1 Gm/10 Ml Udc PO 01/22/25 20:59 Not Given QID BARBARA Thiamine HCl 100 mg 12/24/24 09:00 12/24/24 08:15 Thiamine Hcl 100 Mg Tab PO 01/23/25 08:59 100 mg QAM BARBARA Administration NPO Date Last Intake of Fluids: 12/24/24 Time Last Intake of Fluids: 08:15 Date Last Intake of Solids: 12/23/24 Time Last Intake of Solids: 19:00 Past Medical History Medical History Compression fracture of C7 vertebra no ROM issues per pt Thiamin deficiency Aortic stenosis pt unaware Hyponatremia GERD (gastroesophageal reflux disease) Alcohol use disorder Osteoarthritis Acid reflux Anemia History of depression Insomnia Hypertension Exercise / Class Metabolic Activity II 4-5 Yardwork/Stairs/Walk up hill Past Family History Family History Other No family history of adverse response to anesthesia Past Surgical History Surgical History [place] teeth removed H/O gastric bypass History of section x 1 History of open reduction and internal fixation (ORIF) procedure right wrist--hardware in place History of total left hip replacement History of colonoscopy History of esophagogastroduodenoscopy (EGD) History of wisdom tooth extraction History of cholecystectomy H/O: hysterectomy Past Anesthesia History No Hx of Anesthesia Complications and No Family Hx of Anesthesia Complications History of PONV No Hx of PONV and No Hx of Motion Sickness Social History Smoking Status: Never smoker Do You Dip or Chew Tobacco: No Hx Alcohol Use: Yes Alcohol type: hard liquor alcohol intake frequency: a few times a week Hx Substance Use: No substance use type: does not use Physical Exam Vital Signs Last Vital Signs Temp 36.7 C 12/24/24 11:58 Pulse 81 12/24/24 11:58 Resp 16 12/24/24 11:58 BP 132/81 12/24/24 11:58 Pulse Ox 97 12/24/24 11:58 O2 Del Method Room Air 12/24/24 11:58 ENMT Mouth: no dentition abnormality Thyromental Distance: > or= 3.5 Finger Breadths Mallampati Class: II Neck normal visual inspection Respiratory normal respiratory effort Auscultation: lungs clear to auscultation bilaterally Cardiovascular Rate/Rhythm: regular rate and regular rhythm Psychiatric Orientation: alert Testing Laboratory Results 12/24/24 05:18 12/24/24 05:18 PT 10.5 Seconds (9.0-12.0) 12/23/24 12:39 INR 1.0 (0.9-1.1) 12/23/24 12:39 APTT 29 Seconds (21-31) 12/23/24 12:39 Urine Color Yellow 12/23/24 Unknown Urine Appearance Clear (Clear) 12/23/24 Unknown Urine pH 5.5 (4.5-7.5) 12/23/24 Unknown Ur Specific [place] 1.009 (1.000-1.030) 12/23/24 Unknown Urine Protein Negative (Negative) 12/23/24 Unknown Urine Glucose (UA) Trace (Negative) H 12/23/24 Unknown Urine Ketones Trace (Negative) H 12/23/24 Unknown Urine Nitrite Negative (Negative) 12/23/24 Unknown Ur Leukocyte Esterase 1+ (Negative) H 12/23/24 Unknown Urine WBC (Auto) 0-5 /hpf (0-5) 12/23/24 Unknown Urine RBC (Auto) 0-2 /hpf (0-2) 12/23/24 Unknown U Hyaline Cast (Auto) 0-2 /lpf (0-2) 12/23/24 Unknown U Epithel Cells (Auto) 3-5 /hpf (0-2) H 12/23/24 Unknown Urine Bacteria (Auto) 4+ (None Seen) H 12/23/24 Unknown 12/23/24 12:39 Aerobic Blood Culture - Preliminary Blood Gram positive cocci clusters 12/24/24 07:44 POC Glucose 86
--- NOTE | 2024-12-24 12:24 | Gastrointestinal Consultation ---
Date of Consultation December 24, 2024 Assessment & Plan (1) Dysphagia: Pleasant woman with dysphagia but in the past barium study has shown poor esophageal motility without structural narrowing. She did have an esophageal ulcer in 2022 and she never reported for follow up after that for procedure to document healing. I doubt it but it is possible she has an esophageal malignancy. She has had gastric bypass so that may be contributing to her issues with vomiting. We will do EGD and make recomendations after procedure results are obtained. History of Present Illness Reason for Consultation: vomiting, anorexia Attending Physician: Javi Silva MD History of Present Illness 69 year old female admitted with altered mental status and blood sugar of 18. She says she hasn't been eating anything because she has no appetite and is having chronic issues with nausea and vomiting--usually dry heaves because she cannot eat anything. She also complains of food sticking in her esophagus when she eats. She had an EGD in 2022 that showed an esophageal ulcer but she never returned for follow up endoscopy to document healing. She drinks alcohol on a regular basis. She denies any new medications. She denies being diabetic. She has had a gastric bypass. She was scheduled for an outpatient EGD in the near future. Allergies Allergy/AdvReac Type Severity Reaction Status Date / Time No Known Allergies Allergy Verified 12/24/24 11:58 Home Medications Medication Instructions Recorded Confirmed Type acetaminophen 500 mg tablet 1,000 mg (2 x 500 mg) PO Q8H PRN 02/09/24 12/23/24 Rx (Tylenol Extra Strength) pain or fever #30 tabs alendronate 70 mg tablet 70 mg PO Q7D #4 tabs 02/09/24 12/23/24 Rx multivitamin 1 tab PO DAILY #30 tabs 02/09/24 12/23/24 Rx ondansetron 4 mg disintegrating 4 mg PO Q6H PRN nausea and 02/09/24 12/23/24 Rx tablet vomiting #10 tabs quetiapine 100 mg tablet 100 mg PO HS #30 tabs 02/09/24 12/23/24 Rx sertraline 50 mg tablet 150 mg (3 x 50 mg) PO HS #90 tabs 02/09/24 12/23/24 Rx acyclovir 5 % topical ointment 1 applic topical QID PRN Secretions 06/20/24 12/23/24 History (Zovirax) hydrocodone 5 mg-acetaminophen 325 1 tab PO Q6H PRN pain #10 tabs 06/29/24 12/23/24 Rx mg tablet valacyclovir 1 gram tablet 500 mg PO DAILY PRN Cold Sores 12/16/24 12/23/24 History hydroxyzine pamoate 100 mg capsule 150 mg PO HS 12/23/24 12/23/24 History lisinopril 5 mg tablet (Zestril) 10 mg PO QAM 12/23/24 12/23/24 History pantoprazole 40 mg tablet,delayed 20 mg PO DAILY 12/23/24 12/23/24 History release Patient History Medical History Compression fracture of C7 vertebra no ROM issues per pt Thiamin deficiency Aortic stenosis pt unaware Hyponatremia GERD (gastroesophageal reflux disease) Alcohol use disorder Osteoarthritis Acid reflux Anemia History of depression Insomnia Hypertension Surgical History [place] teeth removed H/O gastric bypass History of section x 1 History of open reduction and internal fixation (ORIF) procedure right wrist--hardware in place History of total left hip replacement History of colonoscopy History of esophagogastroduodenoscopy (EGD) History of wisdom tooth extraction History of cholecystectomy H/O: hysterectomy Family History Other No family history of adverse response to anesthesia Social History Smoking Status: Never smoker Second Hand Exposure: Yes (as child); Do You Dip or Chew Tobacco: No; Hx Alcohol Use: Yes Alcohol type: hard liquor Hx Substance Use: No Preferred Language: [place] Communication Ability: Effective Family Practice Nurse Practitioner Required: No Beliefs That Will Affect Care: None Current Living Situation: Alone Current Living Situation Comment: Independent Living facility Other Information That Helps Us Care for You: No Feels Safe at Home: Yes Safety Concerns: Feels Safe At This Time Assistive Devices: Walker Review of Systems Review of Systems: All systems reviewed & are unremarkable except as noted in HPI & below Physical Exam Physical Exam: She looks comfortable Constitutional: WD/WN, vitals as above Neck: trachea midline, no thyromegaly Respiratory: normal respiratory effort, lungs clear to auscultation Cardiovascular: RRR, no murmur, no edema Gastrointestinal (Abdomen): normal bowel sounds, soft, nontender, no hepatosplenomegaly Results & Data Vital Signs (Past 12 Hours) Vital Signs Temp Pulse Pulse Resp BP Pulse Ox O2 Del Method 12/24/24 11:58 36.7 C 81 16 132/81 97 Room Air 12/24/24 11:23 37.1 C 81 18 118/80 97 Room Air 12/24/24 09:42 77 12/24/24 07:54 36.5 C 80 22 107/68 95 Room Air 12/24/24 03:34 36.4 C L 81 18 100/67 95 Room Air Laboratory Results 12/24/24 12/24/24 12/23/24 Range/Units 07:44 05:18 Unknown WBC 5.67 (4.8-10.8) K/ul RBC 2.78 L (4.20-5.40) M/uL Hgb 9.8 L (12.0-16.0) g/dl Hct 28.5 L (37.0-47.0) % MCV 102.5 H (80.0-100.0) fL MCH 35.3 H (25.0-34.0) pg MCHC 34.4 (32.0-36.0) g/dL RDW Std Deviation 54.1 H (36.4-46.3) fL RDW Coeff of Cate 14.6 H (11.5-14.5) % Plt Count 214 (130-400) K/uL MPV 8.8 L (9.4-12.4) fL Immature Gran % (Auto) 0.4 % Neut % (Auto) 56.6 % Lymph % (Auto) 27.7 % [place] % (Auto) 14.1 % Eos % (Auto) 0.7 % Baso % (Auto) 0.5 % Neut # (Auto) 3.21 (1.40-6.50) K/uL Lymph # (Auto) 1.57 (1.20-3.40) K/uL [place] # (Auto) 0.80 H (0.11-0.59) K/uL Eos # (Auto) 0.04 (0.00-0.50) K/uL Baso # (Auto) 0.03 (0.00-0.20) K/uL Immature Gran # (Auto) 0.02 (0.01-0.20) K/uL PT (9.0-12.0) Seconds INR (0.9-1.1) APTT (21-31) Seconds PTT Ratio Sodium 134 L (136-145) mmol/L Potassium 4.2 (3.5-5.1) mmol/L Chloride 102 (98-107) mmol/L Carbon Dioxide 26 (21-32) mmol/L Anion Gap 6 (3-11) BUN 15 (6-23) mg/dl Creatinine 0.68 (0.6-1.2) mg/dl Est Cr Clr Drug Dosing 74.5 ml/min eGFR 94.22 BUN/Creatinine Ratio 22.1 H (10-20) Glucose 84 (70-99(Fasting)) mg/dl POC Glucose 86 (70-99) mg/dl Lactate (0.4-2.0) mmol/L Calcium 7.8 L (8.6-10.3) mg/dl Magnesium 1.8 (1.7-2.4) mg/dl Total Bilirubin 0.7 D (0.2-1.0) mg/dl AST 59 H (13-39) U/L ALT 25 (7-52) U/L Alkaline Phosphatase 123 H (34-104) U/L Total Creatine Kinase (26-192) U/L Troponin I High Sens (0-14) pg/ml Total Protein 4.3 L D (6.0-8.3) gm/dl Albumin 2.3 L (3.4-5.0) gm/dl Globulin 2.0 L (2.5-4.0) gm/dl Albumin/Globulin Ratio 1.1 (0.9-2) Vitamin B12 (180-914) pg/ml Folate (>5.38) ng/ml Procalcitonin (0-0.5) ng/ml TSH (0.300-4.500) uIu/ml Urine Color Yellow Urine Appearance Clear (Clear) Urine pH 5.5 (4.5-7.5) Ur Specific [place] 1.009 (1.000-1.030) Urine Protein Negative (Negative) Urine Glucose (UA) Trace H (Negative) Urine Ketones Trace H (Negative) Urine Blood Negative (Negative) Urine Nitrite Negative (Negative) Urine Bilirubin Negative (Negative) Urine Urobilinogen Negative (Negative) Ur Leukocyte Esterase 1+ H (Negative) Urine WBC (Auto) 0-5 (0-5) /hpf Urine RBC (Auto) 0-2 (0-2) /hpf U Hyaline Cast (Auto) 0-2 (0-2) /lpf U Epithel Cells (Auto) 3-5 H (0-2) /hpf Urine Bacteria (Auto) 4+ H (None Seen) Uric Acid Crystals Present A (None Prsent) Urine Comment Ethyl Alcohol mg/dL (<10.0) mg/dl Staphylococcus sp PCR (NotDetected) Bld Cult ID Panel PCR (NotDetected) 12/23/24 12/23/24 12/23/24 Range/Units 21:02 17:06 15:12 WBC (4.8-10.8) K/ul RBC (4.20-5.40) M/uL Hgb (12.0-16.0) g/dl Hct (37.0-47.0) % MCV (80.0-100.0) fL MCH (25.0-34.0) pg MCHC (32.0-36.0) g/dL RDW Std Deviation (36.4-46.3) fL RDW Coeff of Cate (11.5-14.5) % Plt Count (130-400) K/uL MPV (9.4-12.4) fL Immature Gran % (Auto) % Neut % (Auto) % Lymph % (Auto) % [place] % (Auto) % Eos % (Auto) % Baso % (Auto) % Neut # (Auto) (1.40-6.50) K/uL Lymph # (Auto) (1.20-3.40) K/uL [place] # (Auto) (0.11-0.59) K/uL Eos # (Auto) (0.00-0.50) K/uL Baso # (Auto) (0.00-0.20) K/uL Immature Gran # (Auto) (0.01-0.20) K/uL PT (9.0-12.0) Seconds INR (0.9-1.1) APTT (21-31) Seconds PTT Ratio Sodium (136-145) mmol/L Potassium (3.5-5.1) mmol/L Chloride (98-107) mmol/L Carbon Dioxide (21-32) mmol/L Anion Gap (3-11) BUN (6-23) mg/dl Creatinine (0.6-1.2) mg/dl Est Cr Clr Drug Dosing ml/min eGFR BUN/Creatinine Ratio (10-20) Glucose (70-99(Fasting)) mg/dl POC Glucose 172 H 205 H (70-99) mg/dl Lactate 1.8 (0.4-2.0) mmol/L Calcium (8.6-10.3) mg/dl Magnesium (1.7-2.4) mg/dl Total Bilirubin (0.2-1.0) mg/dl AST (13-39) U/L ALT (7-52) U/L Alkaline Phosphatase (34-104) U/L Total Creatine Kinase (26-192) U/L Troponin I High Sens (0-14) pg/ml Total Protein (6.0-8.3) gm/dl Albumin (3.4-5.0) gm/dl Globulin (2.5-4.0) gm/dl Albumin/Globulin Ratio (0.9-2) Vitamin B12 (180-914) pg/ml Folate (>5.38) ng/ml Procalcitonin (0-0.5) ng/ml TSH (0.300-4.500) uIu/ml Urine Color Urine Appearance (Clear) Urine pH (4.5-7.5) Ur Specific [place] (1.000-1.030) Urine Protein (Negative) Urine Glucose (UA) (Negative) Urine Ketones (Negative) Urine Blood (Negative) Urine Nitrite (Negative) Urine Bilirubin (Negative) Urine Urobilinogen (Negative) Ur Leukocyte Esterase (Negative) Urine WBC (Auto) (0-5) /hpf Urine RBC (Auto) (0-2) /hpf U Hyaline Cast (Auto) (0-2) /lpf U Epithel Cells (Auto) (0-2) /hpf Urine Bacteria (Auto) (None Seen) Uric Acid Crystals (None Prsent) Urine Comment Ethyl Alcohol mg/dL < 10.0 (<10.0) mg/dl Staphylococcus sp PCR (NotDetected) Bld Cult ID Panel PCR (NotDetected) 12/23/24 12/23/24 12/23/24 Range/Units 15:08 12:39 12:22 WBC 7.03 (4.8-10.8) K/ul RBC 3.30 L (4.20-5.40) M/uL Hgb 11.7 L (12.0-16.0) g/dl Hct 35.2 L (37.0-47.0) % MCV 106.7 H (80.0-100.0) fL MCH 35.5 H (25.0-34.0) pg MCHC 33.2 (32.0-36.0) g/dL RDW Std Deviation 58.8 H (36.4-46.3) fL RDW Coeff of Cate 14.9 H (11.5-14.5) % Plt Count 263 (130-400) K/uL MPV 8.6 L (9.4-12.4) fL Immature Gran % (Auto) 0.6 % Neut % (Auto) 75.1 % Lymph % (Auto) 13.9 % [place] % (Auto) 7.3 % Eos % (Auto) 2.8 % Baso % (Auto) 0.3 % Neut # (Auto) 5.28 (1.40-6.50) K/uL Lymph # (Auto) 0.98 L (1.20-3.40) K/uL [place] # (Auto) 0.51 (0.11-0.59) K/uL Eos # (Auto) 0.20 (0.00-0.50) K/uL Baso # (Auto) 0.02 (0.00-0.20) K/uL Immature Gran # (Auto) 0.04 (0.01-0.20) K/uL PT 10.5 (9.0-12.0) Seconds INR 1.0 (0.9-1.1) APTT 29 (21-31) Seconds PTT Ratio 1.1 Sodium 134 L (136-145) mmol/L Potassium 4.3 (3.5-5.1) mmol/L Chloride 100 (98-107) mmol/L Carbon Dioxide 20 L (21-32) mmol/L Anion Gap 14 H (3-11) BUN 15 (6-23) mg/dl Creatinine 0.93 (0.6-1.2) mg/dl Est Cr Clr Drug Dosing 54.9 ml/min eGFR 66.53 BUN/Creatinine Ratio 16.1 (10-20) Glucose 188 H (70-99(Fasting)) mg/dl POC Glucose 160 H 122 H (70-99) mg/dl Lactate 3.1 H* (0.4-2.0) mmol/L Calcium 7.9 L (8.6-10.3) mg/dl Magnesium 1.5 L (1.7-2.4) mg/dl Total Bilirubin 1.3 H (0.2-1.0) mg/dl AST 248 H (13-39) U/L ALT 40 (7-52) U/L Alkaline Phosphatase 173 H (34-104) U/L Total Creatine Kinase 37 (26-192) U/L Troponin I High Sens 5.6 (0-14) pg/ml Total Protein 5.6 L (6.0-8.3) gm/dl Albumin 3.0 L (3.4-5.0) gm/dl Globulin 2.6 (2.5-4.0) gm/dl Albumin/Globulin Ratio 1.2 (0.9-2) Vitamin B12 964 H (180-914) pg/ml Folate 11.05 (>5.38) ng/ml Procalcitonin 0.16 (0-0.5) ng/ml TSH 2.599 (0.300-4.500) uIu/ml Urine Color Urine Appearance (Clear) Urine pH (4.5-7.5) Ur Specific [place] (1.000-1.030) Urine Protein (Negative) Urine Glucose (UA) (Negative) Urine Ketones (Negative) Urine Blood (Negative) Urine Nitrite (Negative) Urine Bilirubin (Negative) Urine Urobilinogen (Negative) Ur Leukocyte Esterase (Negative) Urine WBC (Auto) (0-5) /hpf Urine RBC (Auto) (0-2) /hpf U Hyaline Cast (Auto) (0-2) /lpf U Epithel Cells (Auto) (0-2) /hpf Urine Bacteria (Auto) (None Seen) Uric Acid Crystals (None Prsent) Urine Comment Ethyl Alcohol mg/dL (<10.0) mg/dl Staphylococcus sp PCR DETECTED A (NotDetected) Bld Cult ID Panel PCR See PCR Comment (NotDetected) Diagnostic Findings Chest X-Ray 12/23/24 12:16 XR chest 1V portable CLINICAL HISTORY: unresponsive COMPARISON STUDY: 06/23/2024 FINDINGS: Stable mild cardiomegaly without pulmonary vascular congestion. No effusion, consolidation, or pneumothorax. IMPRESSION: No acute findings. ACT 112: Negative or not required by law. Electronically signed by: Pardeep Collier M.D. 12/23/2024 1:[address] 12/23/24 12:16 CT head/brain wo con CLINICAL HISTORY: unresponsive. TECHNIQUE: Multiple axial CT images of the head were obtained without contrast. A dose lowering technique was utilized adhering to the principles of ALARA. CT DOSE: 1250.21 mGy.cm COMPARISON: 06/20/2024 FINDINGS: No intracranial hemorrhage seen. No mass effect, midline shift, or hydrocephalus. No skull fracture seen. Visualized paranasal sinuses and mastoid air cells are clear. IMPRESSION: No acute findings. ACT 112: Negative or not required by law. The above report was generated using voice recognition software. It may contain grammatical, syntax or spelling errors. Electronically signed by: Pardeep Collier M.D. 12/23/2024 2:27 PM Shoulder X-Ray 12/23/24 15:10 EXAM: XR shoulder LT min 2V routine CLINICAL HISTORY: Left shoulder pain s/p fall. TECHNIQUE: X-ray images of the left shoulder were obtained in anteroposterior (AP) internal/external rotation, and Y-view projections. COMPARISON: X-ray 11/15/2023 and 09/27/2022. FINDINGS: Bone Structure: Bone structure is aligned. No evidence of acute shoulder bone fractures or dislocation. The humeral head is properly positioned in the glenoid fossa. Joint Spaces: Moderate narrowing of the left acromioclavicular joint with osteophyte formations and cortical irregularity at the articular surface of the clavicle. The glenohumeral joint appears unremarkable. Soft Tissues: Soft tissues appear normal and unremarkable. No soft tissue swelling, calcifications, or foreign bodies noted. Old fracture of the left 5th lateral rib with callus formation. IMPRESSION: 1. No acute fracture or dislocation. 2. Moderate osteoarthritic changes of the AC joint, mild interval progression from prior. 3. Old fracture of the left 5th lateral rib. Disclaimer: A subtle bone abnormality or fracture may not be readily apparent on X-rays; thus clinical correlation and further imaging, including follow-up CT, MRI, or follow-up X-rays are advised as needed. Electronically signed by Juan José Hernández 12-23-2024 6:25 PM
--- NOTE | 2024-12-24 13:14 | GI REPORT ---
[facility] Patient: SANDHYA HALL : 1955 Sex at : Female Age: 69 Years Procedure: Upper GI endoscopy Date: 12/24/2024 Attending Physician: Ehsan Mayes MD Referring MD: Javi Silva MD Indications: - Dysphagia - Anorexia - Vomiting Medications: - Monitored Anesthesia Care - Propofol per Anesthesia - See the Anesthesia note for documentation of the administered medications Complications: - No immediate complications. Estimated Blood Loss: - Estimated blood loss: None. Procedure: - ASA Grade Assessment: III - A patient with severe systemic disease. - The EGD Scope was introduced through the mouth and advanced to the jejunum. - The upper GI endoscopy was accomplished without difficulty. - The patient tolerated the procedure well. Findings: - The examined esophagus was normal. The prior ulcer was healed. There was no evidence of a stricture - Evidence of a gastric bypass was found. A gastric pouch with a normal size was found containing ulceration. The ulcer was just proximal to the anastomosis. The ulcer was cratered and 6 mm in diameter. The staple line appeared intact. The gastrojejunal anastomosis was characterized by ulceration. This was traversed. The excluded stomach was not examined as it could not be reached. - The examined jejunum was normal. Impression: - Normal esophagus. - Gastric bypass with a normal-sized pouch and intact staple line. Gastrojejunal anastomosis characterized by ulceration. - Normal examined jejunum. - No specimens collected. Recommendation: - Return patient to [facility] for [facility] care. - Use sucralfate suspension 1 gram PO QID since she is supposed to also be on PPI Procedure Code(s): - 22423, Esophagogastroduodenoscopy, flexible, transoral; diagnostic, including collection of specimen(s) by brushing or washing, when performed (separate procedure) Diagnosis Code(s): - R13.10, Dysphagia, unspecified - R63.0, Anorexia - R11.10, Vomiting, unspecified - K28.9, Gastrojejunal ulcer, unspecified as acute or chronic, without hemorrhage or perforation CPT(R) - 2023 copyright [employer]. All Rights Reserved. The CPT codes, CCI edits and ICD codes generated are intended as suggestions and were generated based on input data. These codes are preliminary and upon church communications administrator review may be revised to meet current compliance and payer requirements. The provider is responsible for the final determination of appropriate codes, and modifiers. Dr. Ehsan Mayes MD This document has been electronically signed. Note Initiated:12/24/2024 Note Completed:12/24/2024 1:14 PM \\[email or web address]\Provation\Results\[email or web address]\[id number]
[2024-12-24] MEDS: cefTRIAXone SODIUM 2,000 MG/50 ML BAG IV SCH (15:55)
--- NOTE | 2024-12-24 16:06 | Anesthesiology Progress Note ---
Date of Service December 24, 2024 Anesthesia Post Procedure Vital Signs Vital Signs: Temp Pulse Pulse Resp BP Pulse Ox O2 Del Method 12/24/24 15:48 36.5 C 93 H 20 110/76 98 Room Air 12/24/24 14:02 36.6 C 65 16 126/82 94 Room Air 12/24/24 13:43 88 20 126/73 96 Room Air 12/24/24 13:28 83 20 135/90 90 Room Air 12/24/24 13:13 97 H 20 137/93 92 Room Air 12/24/24 11:58 36.7 C 81 16 132/81 97 Room Air 12/24/24 11:23 37.1 C 81 18 118/80 97 Room Air 12/24/24 09:42 77 12/24/24 07:54 36.5 C 80 22 107/68 95 Room Air 12/24/24 03:34 36.4 C L 81 18 100/67 95 Room Air 12/23/24 23:28 36.5 C 83 18 101/69 94 Room Air 12/23/24 21:57 93 H 12/23/24 18:43 36.5 C 90 18 106/67 100 Room Air 12/23/24 18:40 93 H 12/23/24 17:24 37.2 C 12/23/24 17:24 98 Room Air Pain Intensity Back: Pain Intensity: 6 Generalized: Pain Intensity: 3 Transfer of Care Handoff Completed per policy Notes Mental Status: alert / awake / arousable Patient Amnestic to Procedure: Yes Nausea / Vomiting: adequately controlled Pain: adequately controlled Airway Patency, RR, SpO2: stable & adequate BP & HR: stable & adequate Hydration State: stable & adequate Anesthetic Complications: no major complications apparent
[2024-12-24] MEDS: ACETAMINOPHEN 500 MG TAB PO PRN (16:19)
--- NOTE | 2024-12-25 10:55 | Hospitalist Progress Note ---
Date of Service December 25, 2024 Assessment & Plan (1) Hypoglycemia: Plan: -resolved -2nd to decreased PO intake (2) Acute metabolic encephalopathy: Plan: -resolved (3) Acute UTI (urinary tract infection): Plan: UA positive with 4+ bacteria on arrival UCx on 07/21/2023 revealed Klebsiella pneumonia with resistance to penicillins, cefazolin; sensitive to ceftriaxone UCx on 11/17/2023 revealed pansensitive E. 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 Thought to be secondary to hypoglycemia in the setting of alcohol use. VTE PPx: Lovenox 40 mg SQ q24h Admission and Anticipated Discharge Date Admission Date: December 23, 2024 Subjective No events overnight, pt resting comfortably inside. Review of Systems Review of Systems: CONST: Negative for fever, body aches and chills. HENT: Negative for neck pain/stiffness, headache, congestion, sore throat, swelling. EYES: Negative for discharge/pain or vision changes. RESP: Negative for cough/hemoptysis and shortness of breath. CV: Negative chest pain, difficulty breathing, palpitations. ABD: Negative pain, nausea, vomiting. : Negative increase frequency, dysuria, blood in urine or stool. MUSC: Negative for muscle aches, edema. SKIN: Negative rash, lesions/sores. NEURO: Negative headache, dizziness, weakness. Physical Exam Physical Exam: GENERAL APPEARANCE NAD, activity normal for age, well developed/ well nourished, no cyanosis, pallor, or diaphoresis. EYES lids/conjunctiva normal. EARS/NOSE/THROAT Mucous membranes moist, nares normal, lips/teeth normal uvula midline without oral pharyngeal erythema, exudate or swelling TMs normal bilaterally. No lymphangitis/lymphedema. HEAD/NECK normocephalic atraumatic, no facial trauma, neck is supple. RESPIRATORY respiratory effort normal, speaks in full sentences, no tripod position, no accessory muscle use. Lungs clear to auscultation without rhonchi, wheezes, rales CARDIAC Regular rate and rhythm, no edema. ABDOMINAL Soft, ND/NT. No evidence of fluid wave. No pulsatile masses on exam, rebound tenderness, Perez sign or pain over Mcburney's point. MUSCLES/EXTREMITIES No abnormal range of motion, no swelling. SKIN Warm, pink and dry. No rashes, dermatoses, petechiae or lesions. NEUROLOGICAL Speech is clear and appropriate. Normal level of consciousness. Gait and coordination are normal. 5/5 strength in all extremities. PSYCH Normal mood and affect. Judgement/competence is appropriate Results & Data Results & Data Vital Signs (Past 12 Hours) Vital Signs Temp Pulse Pulse Resp BP Pulse Ox O2 Del Method 12/25/24 10:31 75 12/25/24 08:23 36.6 C 85 18 131/85 97 Room Air 12/25/24 03:02 36.3 C L 74 18 120/83 97 Room Air 12/24/24 23:03 36.4 C L 80 18 109/77 97 Room Air PG Care Time/CCT Total # of Minutes Spent Total Time Spent with Patient: Total time spent is greater than 50% in coordination of care (as documented) at patient's floor/unit and/or counseling patient: Coding Level of Care Code 27905 SUB INP/OBS CARE 2/35MIN Diagnoses Hypoglycemia E16.2 Acute metabolic encephalopathy G93.41 Acute UTI (urinary tract infection) N39.0 Severe alcohol use disorder F10.20 History of Tayler-en-Y gastric bypass Z98.84 Dysphagia R13.10
--- NOTE | 2024-12-25 12:29 | Gastroenterology Progress Note ---
Date of Service December 25, 2024 Assessment & Plan (1) Dysphagia: Plan: Seems to be symptom free from GI standpoint. Continue current treatment Admission and Anticipated Discharge Date Admission Date: December 23, 2024 Subjective Patient tells me she is feeling better. She has been able to eat today Physical Exam Physical Exam: She looks well Constitutional: WD/WN, vitals as above Results & Data Vital Signs (Past 12 Hours) Vital Signs Temp Pulse Pulse Resp BP Pulse Ox O2 Del Method 12/25/24 12:01 36.7 C 76 18 116/79 97 Room Air 12/25/24 10:31 75 12/25/24 08:23 36.6 C 85 18 131/85 97 Room Air 12/25/24 03:02 36.3 C L 74 18 120/83 97 Room Air
--- NOTE | 2024-12-26 08:46 | Gastroenterology Progress Note ---
Date of Service December 26, 2024 Assessment & Plan (1) Dysphagia: Plan: Much improved from a GI standpoint. Would discharge soon. No further recommendations for this hospitalization. She will follow with [facility] in the GI clinic. Will sign off. Please reconsult as needed. Admission and Anticipated Discharge Date Admission Date: December 23, 2024 Subjective She feels well. Eating well. Swallowing well. Physical Exam Physical Exam: She looks well Constitutional: WD/WN, vitals as above Results & Data Vital Signs (Past 12 Hours) Vital Signs Temp Pulse Pulse Resp BP Pulse Ox O2 Del Method 12/26/24 08:24 36.5 C 83 18 144/82 H 97 Room Air 12/26/24 03:28 36.4 C L 71 18 151/92 H 97 Room Air 12/25/24 23:19 36.5 C 76 16 112/79 96 Room Air 12/25/24 21:43 87
--- NOTE | 2024-12-26 10:56 | Discharge Summary ---
Discharge Summary Date of Service December 26, 2024 Principal Dx & Hospital Course #1 = Principal Diagnosis (1) Hypoglycemia: -resolved -2nd to decreased PO intake (2) Acute metabolic encephalopathy: -resolved (3) Acute UTI (urinary tract infection): UA positive with 4+ bacteria on arrival UCx on 07/21/2023 revealed Klebsiella pneumonia with resistance to penicillins, cefazolin; sensitive to ceftriaxone UCx on 11/17/2023 revealed pansensitive E. coli Ceftriaxone 2000 mg IV Follow current UCx (4) Severe alcohol use disorder: Last drink the evening of 12/22 x 1 day [employer] Patient reports she was having visual hallucinations 3 days [employer], and was trying to taper herself off of alcohol AWSS active protocol with lorazepam PRN Daily thiamine and folate supplementation AM (5) History of Tayler-en-Y gastric bypass: -EGD negative -GI consult appreciated (6) Dysphagia: Plan This is a 69-year-old female who presented on 12/23 for an unresponsive episode. Thought to be secondary to hypoglycemia in the setting of alcohol use. VTE PPx: Lovenox 40 mg SQ q24h Admission HPI Per Admitting Provider Mrs. Nielsen is a 69-year-old female with PMH of severe alcohol use disorder, poor nutrition, major depression, syncope, gastric bypass (Tayler-en-Y), starvation ketoacidosis, and aortic stenosis. She presented on 12/23 after being found unresponsive on the ground by her daughter at 11 AM. BSG was 18 on EMS arrival. Last known well 1530 yesterday on 12/22. Patient lives at [facility] (independent living). She reports that she felt fine when she went to bed last night. Then she woke up around 8 AM, and had trouble getting up. She slid out of bed, was unable to get up on her own, and passed out. Patient reports she has had difficulty swallowing over the past several months; this is also led to low appetite. She was scheduled to have an EGD done next month. Patient denies striking her head when she slid out of bed this morning; she reports she was simply too weak to get back up. She denies prior history of UTIs. However, she reports that she started having urinary incontinence approximately 6 months ago. This occurs monthly. Patient reports she was drinking alcohol last night; reports she had 1 rum and coke. She does endorse history of significant alcohol use, and reports her last rehab was in 2021; she is unsure when her last break from alcohol was. History of alcohol withdrawal. No history of alcohol withdrawal seizures, but she does report she has been having visual hallucinations this week on Friday and Friday; she reports she was seeing people who were not there. She is currently trying to taper herself off of alcohol. Patient did not take her regular morning medicine today. She has thiamine and folate supplementation, but she reports she has not been taking them. The only recent change in medication is that she was restarted on lisinopril recently. Patient was hypothermic at 33.8 C on arrival; vitals otherwise stable. ED course: NSS 1000 mL IV Dextrose 50 mL IV Calcium gluconate 1000 mg IV Magnesium sulfate 1 g IV Ceftriaxone 2000 mg IV ROS: Patient endorses night-sweats x 3-4 months (occurs a couple times per month), dizziness, lightheadedness, productive cough (light yellow sputum production), intermittent dry heaves, and new-onset urinary incontinence x 6months (occuring approximately once per month). Patient denies fever, chills, PARNELL, changes in vision (blurry vision, double vision, photophobia), chest pain, SOB, chest palpitations, hemoptysis, pleuritic CP, abdominal pain, N/V/D, burning with urination, blood in the urine/stool, saddle anesthesia, numbness/tingling in the groin region. Discharge Exam GENERAL APPEARANCE NAD, activity normal for age, well developed/ well nourished, no cyanosis, pallor, or diaphoresis. EYES lids/conjunctiva normal. EARS/NOSE/THROAT Mucous membranes moist, nares normal, lips/teeth normal uvula midline without oral pharyngeal erythema, exudate or swelling TMs normal bilaterally. No lymphangitis/lymphedema. HEAD/NECK normocephalic atraumatic, no facial trauma, neck is supple. RESPIRATORY respiratory effort normal, speaks in full sentences, no tripod position, no accessory muscle use. Lungs clear to auscultation without rhonchi, wheezes, rales CARDIAC Regular rate and rhythm, no edema. ABDOMINAL Soft, ND/NT. No evidence of fluid wave. No pulsatile masses on exam, rebound tenderness, Perez sign or pain over Mcburney's point. MUSCLES/EXTREMITIES No abnormal range of motion, no swelling. SKIN Warm, pink and dry. No rashes, dermatoses, petechiae or lesions. NEUROLOGICAL Speech is clear and appropriate. Normal level of consciousness. Gait and coordination are normal. 5/5 strength in all extremities. PSYCH Normal mood and affect. Judgement/competence is appropriate Discharge Plan Discharge Items Patient Disposition: Home - Self-Care Reason For Visit: UNRESPONSIVE, HYPOGLYCEMIA, HYPOTHERMIA Discharge Diagnosis: Hypoglycemia, AMS Condition on Discharge: Fair Activity: Resume your previous activity Non-emergency contact: Primary Care Provider Call non-emergency contact if: you have any medication questions Follow-up/Referrals: Emily Diehl PA-C [Primary Care Provider] - Diet: Regular Addtl Attending Provider Instructions: Follow up with PMD in 2 weeks Pending Studies at Discharge: No Stand-Alone Forms: My [employer]-Dent, Smoking Cessation Medications and DC Order Prescriptions: New sucralfate 1 gram tablet 1 g PO BID Qty: 60 0RF thiamine HCl (vitamin B1) 100 mg Tablet 100 mg PO QAM Qty: 30 0RF folic acid 1 mg Tablet 1 mg PO QAM Qty: 30 0RF Continued sertraline 50 mg Tablet 150 mg PO HS Qty: 90 1RF multivitamin Tablet 1 tab PO DAILY Qty: 30 1RF alendronate 70 mg tablet 70 mg PO Q7D Qty: 4 1RF quetiapine 100 mg tablet 100 mg PO HS Qty: 30 0RF acetaminophen [Tylenol Extra Strength] 500 mg Tablet 1,000 mg PO Q8H PRN (Reason: pain or fever) Qty: 30 0RF Rx Instructions: max 3000mg in 24 hours ondansetron 4 mg tablet,disintegrating 4 mg PO Q6H PRN (Reason: nausea and vomiting) Qty: 10 0RF acyclovir [Zovirax] 5 % ointment 1 applic topical QID PRN (Reason: Secretions) Rx Instructions: apply until cold sores are resolved. hydrocodone-acetaminophen 5-325 mg Tablet 1 tab PO Q6H PRN (Reason: pain) Qty: 10 0RF valacyclovir 1 gram tablet 500 mg PO DAILY PRN (Reason: Cold Sores) hydroxyzine pamoate 100 mg capsule 150 mg PO HS pantoprazole 40 mg tablet,delayed release (DR/EC) 20 mg PO DAILY lisinopril [Zestril] 5 mg tablet 10 mg PO QAM Patient Comments: no longer taking 12/16/24 Admission Data Admit Date/Time: 12/23/24 16:16 Attending Provider: Javi Silva Admit Provider: Kendall Winston Primary Care Provider: Emily Diehl Other Providers: Kendall Winston; Ehsan Mayes Jr Hospital Stay Data Consultations 12/23/24 15:30 ED Decision to Admit Stat 12/23/24 20:59 Consult Gastroenterology Routine Procedures Performed Operation Date: 12/24/24 17:00 Actual Procedures p Esophagogastroduodenoscopy - Ehsan Mayes Jr, MD Diagnostic Imagining Performed 12/23/24 12:16 CT head/brain wo con Stat Pending Results Patient Have Any Pending Studies at Discharge: No Discharge Instructions Given to Patient (Per Discharging Provider) Follow up with PMD in 2 weeks Total Time Total Time Spent Total Time Spent (In Minutes): 50 Coding Level of Care Code 60212 INP/OBS DISCH >30 MIN Diagnoses Hypoglycemia E16.2 Acute metabolic encephalopathy G93.41 Acute UTI (urinary tract infection) N39.0 Severe alcohol use disorder F10.20 History of Tayler-en-Y gastric bypass Z98.84 Dysphagia R13.10
[2024-12-26 12:23] VITALS: BP 158/91; RESP 20; TEMP 98.1; O2SAT 96
[2024-12-26 17:30] VITALS: PULSE 79
--- NOTE | 2024-12-28 16:29 | Electrocardiogram Report ---
Test Reason : Blood Pressure : */* mmHG Vent. Rate : 76 BPM Atrial Rate : 76 BPM P-R Int : 174 ms QRS Dur : 74 ms QT Int : 388 ms P-R-T Axes : 6 -23 14 degrees QTcB Int : 436 ms Normal sinus rhythm Normal ECG When compared with ECG of 23-Dec-2024 12:59, Aberrant conduction is no longer Present Minimal criteria for Inferior infarct are no longer Present QT has shortened Confirmed by Álvaro Hayward ([id number]) on 12/28/2024 4:28:54 PM Referred By: REFERRED SELF Confirmed By: Álvaro Hayward
== END 2024-12-26 20:29 | disposition home or self-care (01) | DRG 637 ==
LOC: ED 11:59 → EDINP 16:16 → SUATTDRO 16:16 → INTOOBSV 16:16 → 4W 18:43

== ENCOUNTER 2025-01-15 14:00 | Inpatient (IN) ==
--- NOTE | 2025-01-15 14:16 | Emergency Department Note ---
Impression & Plan Acute leg pain, Ambulatory dysfunction ED Provider Note NAME: SANDHYA HALL AGE: 69 SEX: F : 1955 ARRIVES VIA: Ambulance INFORMANT: Patient ED PROVIDER(S): George Pleitez DO CHIEF COMPLAINT: Left leg weakness HPI: Patient is a 69-year-old female with a past medical history of UTI, hyperglycemia, noncompliant, unresponsive who presents to the ER for left posterior thigh pain and weakness in her leg. She notes that she is unable to really support her weight now and she is unable to walk. She denies any falls or trauma. No headache or change in vision. No chest pain or shortness of breath. No nausea, vomiting, or diarrhea. No dysuria, urgency, or frequency. EMS provides additional history and notes that patient is being treated for UTI. Denies any back pain. ADDITIONAL HISTORY OBTAINED: Per HPI Chronic Medical/Social Conditions Affecting Care: Per HPI PAST MEDICAL HISTORY:See Below PAST SURGICAL HISTORY:See Below FAMILY HISTORY:See Below SOCIAL HISTORY:See Below HOME MEDICATIONS:See Below ALLERGIES:See Below VITALS:See Below PHYSICAL EXAMINATION: GENERAL: Sitting up in bed, alert, well appearing, well nourished, no distress, non-toxic EYE EXAM: normal conjunctiva. PERRL and EOM's grossly intact. OROPHARYNX: no exudate, no erythema, lips, buccal mucosa, and tongue normal and mucous membranes are moist NECK: supple, no nuchal rigidity, no adenopathy, non-tender LUNGS: Clear to auscultation. Normal chest wall mechanics HEART: no murmurs, S1 normal and S2 normal ABDOMEN: abdomen soft, non-tender, normo-active bowel sounds, no masses, no rebound or guarding. BACK: Back is symmetrical on inspection and there is no deformity, no midline tenderness, no CVA tenderness. UPPER EXTREMITIES: upper extremities are grossly normal. LOWER EXTREMITIES: Flexion and extension of the hips, knees, ankles, and EHL 5/5 bilaterally. Gross sensation is intact. DPs are 2/4 bilateral. Patellar and Achilles reflexes are 2/4 bilateral NEURO EXAM: Normal sensorium, cranial nerves II-XII grossly intact, normal speech, no gross weakness of arms, no gross weakness of legs. MEDICAL DECISION MAKING: Patient is a 69-year-old female who presents ER for the above-stated complaint. IV was established and blood work was obtained. Labs show no significant leukocytosis or anemia. BMP with LFTs bilirubin is unremarkable. Lipase is normal. CT of the lumbar spine and head was unremarkable. Duplex was unremarkable. There is no focal deficit on exam. Symptoms have been present for a week. Patient was updated at bedside. Patient was given Toradol. She notes she has significant weakness and cannot go home and consequently discussed with the hospitalist for further evaluation management treatment. Consults/Care Managements Discussions: Per MDM Triage Nursing notes reviewed. Limited review of prior medical records performed Vital Signs: reviewed and remarkable for no significant abnormalities Differential diagnosis: Infection, dehydration, metabolic abnormality, hypo/hyperglycemia, electrolyte disturbance, anemia, hypoxia, cardiac sources, intracerebral event, toxicologic, neurologic, as well as other pathologies. ER treatment provided: See below Diagnostics interpreted by me include EKG and cardiac monitoring as listed below: -Cardiac Monitoring: An order was placed for continuous cardiac monitoring. The monitor shows a rate of 90 with sinus rhythm. -ECG: none -Laboratory studies:Interpreted by me as stated above in MDM and shown below. Imaging studies: Xrays: As interpreted by me:none CTs show: CT head per my pleurae interpretation showed no obvious large bleed CT of the head and lumbar spine showed no acute pathology Procedures:none Critical Care: None Past Med/Surg History Problem List (Updated 01/15/25 @ 19:55 by George Pleitez DO) Ambulatory dysfunction (Acute) Acute leg pain (Acute) Transaminitis Left leg pain Dysphagia Acute UTI (urinary tract infection) (Acute) Hypocalcemia (Acute) Severe diabetic hypoglycemia (Acute) Hypomagnesemia (Acute) Unresponsive episode (Acute) Non-compliant patient Thiamine deficiency Cough Herpes labialis Compression fracture of C7 vertebra Burst fracture of thoracic vertebra Hypomagnesemia (Acute) Compression fracture of T2 vertebra Compression fracture of T1 vertebra (Acute) Compression fracture of C7 vertebra (Acute) Closed fracture of manubrium (Acute) Aortic stenosis History of Tayler-en-Y gastric bypass Iron deficiency anemia Major depression Severe alcohol use disorder Hypomagnesemia (Acute) Low back pain (Acute) Weakness (Acute) Acute kidney injury (Acute) Fall (Acute) Anemia (Acute) Acute chest wall pain (Acute) Starvation ketoacidosis Urinary tract infection due to Klebsiella species Nausea and vomiting History of gastric bypass (Acute) Anemia (Acute) MURALI (acute kidney injury) (Acute) Vomiting and diarrhea (Acute) Syncope (Acute) Hypotension (Acute) Esophageal dysmotility Poor nutrition (Acute) Encounter for pre-operative examination Depression Alcohol intoxication (Acute) Syncope (Acute) Cholecystitis (Acute 01/09/14) Abdominal pain (Acute) Medical History Compression fracture of C7 vertebra no ROM issues per pt Thiamin deficiency Aortic stenosis pt unaware Hyponatremia GERD (gastroesophageal reflux disease) Alcohol use disorder Osteoarthritis Acid reflux Anemia History of depression Insomnia Hypertension Surgical History Scuddy teeth removed H/O gastric bypass History of section x 1 History of open reduction and internal fixation (ORIF) procedure right wrist--hardware in place History of total left hip replacement History of colonoscopy History of esophagogastroduodenoscopy (EGD) History of wisdom tooth extraction History of cholecystectomy H/O: hysterectomy Family History Other No family history of adverse response to anesthesia Social History Smoking Status: Never smoker Second Hand Exposure: Yes (as child); Do You Dip or Chew Tobacco: No; Hx Alcohol Use: No Hx Substance Use: No Preferred Language: Yoruba Communication Ability: Effective Chief Talent Officer Required: No Beliefs That Will Affect Care: None Current Living Situation: Longterm Current Living Situation Comment: Independent Living facility Other Information That Helps Us Care for You: No Feels Safe at Home: Yes Safety Concerns: Feels Safe At This Time Assistive Devices: None Allergies Allergies Allergy/AdvReac Type Severity Reaction Status Date / Time No Known Allergies Allergy Verified 01/15/25 15:51 Home Meds Home Medications Medication Instructions Recorded Confirmed acyclovir 5 % topical ointment 1 applic topical QID PRN Secretions 06/20/24 01/15/25 (Zovirax) valacyclovir 1 gram tablet 500 mg PO DAILY PRN Cold Sores 12/16/24 01/15/25 hydroxyzine pamoate 100 mg capsule 150 mg PO HS 12/23/24 01/15/25 lisinopril 5 mg tablet (Zestril) 10 mg PO HS 12/23/24 01/15/25 alendronate 70 mg tablet 70 mg PO WK 01/15/25 01/15/25 folic acid 1 mg tablet 1 mg PO HS 01/15/25 01/15/25 pantoprazole 20 mg tablet,delayed 20 mg PO HS 01/15/25 01/15/25 release sertraline 100 mg tablet 100 mg PO HS 01/15/25 01/15/25 sertraline 50 mg tablet 50 mg PO HS 01/15/25 01/15/25 thiamine HCl (vitamin B1) 100 mg 100 mg PO DAILY 01/15/25 01/15/25 tablet Previous Rx's Medication Instructions Recorded acetaminophen 500 mg tablet 1,000 mg (2 x 500 mg) PO Q8H PRN 02/09/24 (Tylenol Extra Strength) pain or fever #30 tabs multivitamin 1 tab PO DAILY #30 tabs 02/09/24 ondansetron 4 mg disintegrating 4 mg PO Q6H PRN nausea and 02/09/24 tablet vomiting #10 tabs quetiapine 100 mg tablet 100 mg PO HS #30 tabs 02/09/24 hydrocodone 5 mg-acetaminophen 325 1 tab PO Q6H PRN pain #10 tabs 06/29/24 mg tablet Results & Data (ED) Vital Signs Vital Signs - 24 hr 01/15/25 14:10 01/15/25 14:19 01/15/25 14:21 Temperature 36.9 C Temperature Source Oral Pulse Rate 92 H 90 90 Pulse Rate from SpO2 Sensor Respiratory Rate 19 20 11 L Respiratory Effort / Characteristics Non-Labored Respiratory Depth Normal Blood Pressure 141/111 H 141/111 H Blood Pressure Mean 121 121 Blood Pressure Position Sitting Pulse Oximetry 92 94 97 Oxygen Delivery Method Room Air Room Air Sepsis Recent Fever Within 48 Hours No Sepsis New/Unexplained Change in Mental Status N/A Sepsis Action Taken by Nursing No Action Required 01/15/25 15:00 01/15/25 16:15 Temperature Temperature Source Pulse Rate Pulse Rate from SpO2 Sensor 92 H 91 H Respiratory Rate Respiratory Effort / Characteristics Respiratory Depth Blood Pressure 151/93 H 168/107 H Blood Pressure Mean 112 127 Blood Pressure Position Pulse Oximetry 99 98 Oxygen Delivery Method Room Air Room Air Sepsis Recent Fever Within 48 Hours Sepsis New/Unexplained Change in Mental Status Sepsis Action Taken by Nursing Laboratory Data 01/15/25 14:24 01/15/25 14:24 Lab Results 01/15/25 Range/Units 14:24 WBC 7.71 (4.8-10.8) K/ul RBC 3.64 L (4.20-5.40) M/uL Hgb 12.4 (12.0-16.0) g/dl Hct 37.7 (37.0-47.0) % MCV 103.6 H (80.0-100.0) fL MCH 34.1 H (25.0-34.0) pg MCHC 32.9 (32.0-36.0) g/dL RDW Std Deviation 49.2 H (36.4-46.3) fL RDW Coeff of Cate 13.0 (11.5-14.5) % Plt Count 306 (130-400) K/uL MPV 8.6 L (9.4-12.4) fL Immature Gran % (Auto) 0.5 % Neut % (Auto) 75.3 % Lymph % (Auto) 14.0 % Shannon % (Auto) 8.9 % Eos % (Auto) 0.9 % Baso % (Auto) 0.4 % Neut # (Auto) 5.80 (1.40-6.50) K/uL Lymph # (Auto) 1.08 L (1.20-3.40) K/uL Shannon # (Auto) 0.69 H (0.11-0.59) K/uL Eos # (Auto) 0.07 (0.00-0.50) K/uL Baso # (Auto) 0.03 (0.00-0.20) K/uL Immature Gran # (Auto) 0.04 (0.01-0.20) K/uL Sodium 139 (136-145) mmol/L Potassium 3.8 (3.5-5.1) mmol/L Chloride 106 (98-107) mmol/L Carbon Dioxide 26 (21-32) mmol/L Anion Gap 7 (3-11) BUN 9 (6-23) mg/dl Creatinine 0.61 (0.6-1.2) mg/dl Est Cr Clr Drug Dosing 82.1 ml/min eGFR 96.72 BUN/Creatinine Ratio 14.8 (10-20) Glucose 113 H (70-99(Fasting)) mg/dl Calcium 8.4 L (8.6-10.3) mg/dl Total Bilirubin 0.5 (0.2-1.0) mg/dl AST 122 H (13-39) U/L ALT 47 (7-52) U/L Alkaline Phosphatase 109 H (34-104) U/L Total Protein 6.0 (6.0-8.3) gm/dl Albumin 3.3 L (3.4-5.0) gm/dl Globulin 2.7 (2.5-4.0) gm/dl Albumin/Globulin Ratio 1.2 (0.9-2) Lipase 19 (11-82) U/L Administered Medications Discontinued Medications Gadobutrol (Gadobutrol 65ml Vial) 6 ml IV ONCE ONE Stop: 01/15/25 19:12 Last Admin: 01/15/25 19:12 Dose: 6 ml Documented By: TINY Sodium Chloride (Nss) 500 mls @ 999 mls/hr IV .Q31M ONE Stop: 01/15/25 16:14 Last Infusion: 01/15/25 16:56 Dose: Infused Documented By: Admin: 01/15/25 16:21 Dose: 999 mls/hr Documented By: MAGUI Ketorolac Tromethamine (Ketorolac Tromethamine 10 Mg Tablet) 10 mg PO NOW STA Stop: 01/15/25 15:37 Last Admin: 01/15/25 16:21 Dose: 10 mg Documented By: MAGUI Imaging Data Radiologist's Impression: Head CT 01/15/25 14:13 CT head without contrast History: Fall Comparison: None Technique: Using multidetector thin collimation helical acquisition technique, axial, coronal and sagittal CT images from the skull base to the vertex were obtained without intravenous contrast. Dose reduction techniques were achieved by using automatic exposure control and/or adjustment of mA and/or kV according to patient size and/or use of iterative reconstruction technique. Findings: No intracranial hemorrhage, mass-effect, or midline shift. The ventricles are proportionate to the cerebral sulci. The teran to white matter differentiation of the cerebral hemispheres is preserved. The basal cisterns are patent. Mild to moderate cerebral atrophy. The visualized paranasal sinuses are clear. Mastoid air cells are clear. Impression: No acute intracranial pathology. Electronically signed by Wade Santo 01-15-2025 3:[address] 01/15/25 14:13 CT lumbar spine without contrast History: Fall Comparison: November 16, 2023 Technique: Using multidetector thin collimation helical acquisition technique, axial, coronal and sagittal CT images through the lumbar spine were obtained without intravenous contrast. Dose reduction techniques were achieved by using automatic exposure control and/or adjustment of mA and/or kV according to patient size and/or use of iterative reconstruction technique. Findings: There are 5 lumbar type vertebrae. Regarding alignment, the lumbar spine alignment appears preserved. There is no significant disc space narrowing at any level. No definite lesions are noted within the vertebra. Moderate degenerative facet arthropathy at L5-S1. Endplate Schmorl's node formation at L2-L3. The visualized adjacent paraspinous tissues are grossly within normal limits. Calcifications in the head of the pancreas suggesting sequelae of chronic pancreatitis. There is also an apparent cystic lesion in the head of the pancreas, series 12 image 112 measuring approximately 1.5 cm. Impression: No acute bony abnormality of the lumbar spine. There is an apparent cystic lesion in the head of the pancreas. Recommend nonemergent follow-up abdominal MRI with IV contrast. Electronically signed by Wade Santo 01-15-2025 3:19 PM Venous Doppler Study 01/15/25 15:47 EXAM: US venous doppler LE LT CLINICAL HISTORY: lle pain. TECHNIQUE: Ultrasound examination of left lower extremity veins was performed in real time and duplex. One or more of the following were performed- spectral analysis, resistive index, waveform analysis, and pulsed Doppler. COMPARISON: 12/09/2024 US venous doppler LE LT. FINDINGS: Normal phasic, non-pulsatile, and spontaneous flow is noted in the left common femoral, superficial femoral, popliteal, posterior tibial, and anterior tibial veins. Visualized veins of left lower extremity demonstrate normal compressibility. No sonographic evidence of acute deep vein thrombosis (DVT) is detected in the visualized veins of left lower extremity. Compression and Augmentation: All evaluated veins compress fully with applied transducer pressure. Augmentation of venous flow is noted with distal compression. Additional Findings: No evidence of intraluminal thrombus. IMPRESSION: 1. No sonographic evidence of acute DVT detected in the left common femoral, superficial femoral, popliteal, posterior tibial, and anterior tibial veins, at the time of examination. 2. No marked interval changes. Disclaimer: DVT could be missed early in the disease when clot burden is minimal. For patients with moderate and high pretest probability of DVT and negative ultrasound, the [employer] clinical guidelines recommend testing with a D-dimer assay or repeat ultrasound in 5-7 days. If symptoms worsen, the Society of radiologists in ultrasound recommends repeating ultrasound even earlier. Electronically signed by Juan José Hernández 01-15-2025 6:49 PM Discharge Plan Visit Data Chief Complaint: Leg Injury/Pain Stated Complaint: leg pain ED Provider: George Pleitez Discharge Problem: Acute leg pain, Ambulatory dysfunction Patient Disposition: Admitted As Inpatient Condition: Fair Discharge Instructions Interventions: ED Discharge Assessment Last Done: 01/15/25 18:46 Discharge Problem: Acute leg pain Qualifiers: Laterality: left Qualified Code(s): M79.605 - Pain in left leg
[2025-01-15 14:39] LABS: Hematocrit (blood only) 37.7 % (37.0-47.0); Hemoglobin 12.4 g/dl (12.0-16.0); Immature Granulocytes # (auto) 0.04 K/uL (0.01-0.20); Immature Granulocytes % (auto) 0.5 %; Mean Corpuscular Hemoglobin 34.1 pg (25.0-34.0); Mean Corpuscular Volume 103.6 fL (80.0-100.0); Platelet Count 306 K/uL (130-400); RDW Standard Deviation 49.2 fL (36.4-46.3); Red Blood Count 3.64 M/uL (4.20-5.40); White Blood Count 7.71 K/ul (4.8-10.8)
[2025-01-15 14:55] LABS: Alanine Aminotransferase 47.0 U/L (7-52); Albumin Globulin Ratio 1.2 (0.9-2); Alkaline Phosphatase 109.0 U/L (34-104); Anion Gap 7.0 (3-11); Bilirubin,Total 0.5 mg/dl (0.2-1.0); Blood Urea Nitrogen 9.0 mg/dl (6-23); Calcium 8.4 mg/dl (8.6-10.3); Carbon Dioxide 26.0 mmol/L (21-32); Chloride 106.0 mmol/L (98-107); Creatinine Clr Calc Pharmacy 82.1 ml/min; Globulin 2.7 gm/dl (2.5-4.0); Glucose 113.0 mg/dl (70-99(Fasting)); Lipase 19.0 U/L (11-82); Potassium 3.8 mmol/L (3.5-5.1); Sodium 139.0 mmol/L (136-145); Total Protein 6.0 gm/dl (6.0-8.3)
--- NOTE | 2025-01-15 15:15 | CT Scan Report ---
CT head without contrast History: Fall Comparison: None Technique: Using multidetector thin collimation helical acquisition technique, axial, coronal and sagittal CT images from the skull base to the vertex were obtained without intravenous contrast. Dose reduction techniques were achieved by using automatic exposure control and/or adjustment of mA and/or kV according to patient size and/or use of iterative reconstruction technique. Findings: No intracranial hemorrhage, mass-effect, or midline shift. The ventricles are proportionate to the cerebral sulci. The teran to white matter differentiation of the cerebral hemispheres is preserved. The basal cisterns are patent. Mild to moderate cerebral atrophy. The visualized paranasal sinuses are clear. Mastoid air cells are clear. Impression: No acute intracranial pathology. Electronically signed by Wade Santo 01-15-2025 3:15 PM
--- NOTE | 2025-01-15 15:19 | CT Scan Report ---
CT lumbar spine without contrast History: Fall Comparison: November 16, 2023 Technique: Using multidetector thin collimation helical acquisition technique, axial, coronal and sagittal CT images through the lumbar spine were obtained without intravenous contrast. Dose reduction techniques were achieved by using automatic exposure control and/or adjustment of mA and/or kV according to patient size and/or use of iterative reconstruction technique. Findings: There are 5 lumbar type vertebrae. Regarding alignment, the lumbar spine alignment appears preserved. There is no significant disc space narrowing at any level. No definite lesions are noted within the vertebra. Moderate degenerative facet arthropathy at L5-S1. Endplate Schmorl's node formation at L2-L3. The visualized adjacent paraspinous tissues are grossly within normal limits. Calcifications in the head of the pancreas suggesting sequelae of chronic pancreatitis. There is also an apparent cystic lesion in the head of the pancreas, series 12 image 112 measuring approximately 1.5 cm. Impression: No acute bony abnormality of the lumbar spine. There is an apparent cystic lesion in the head of the pancreas. Recommend nonemergent follow-up abdominal MRI with IV contrast. Electronically signed by Wade Santo 01-15-2025 3:19 PM
[2025-01-15] MEDS: SODIUM CHLORIDE 0.9% 500 ML IV ONE (16:21)
[2025-01-15] MEDS: KETOROLAC TROMETHAMINE 10 MG TABLET PO STA (16:21)
--- NOTE | 2025-01-15 17:41 | History & Physical Report ---
Date of Service January 15, 2025 Assessment & Plan (1) Left leg pain: (2) Thiamine deficiency: (3) Severe alcohol use disorder: (4) Transaminitis: Plan Patient is a 69-year-old female with a past medical history including vitamin deficiency, multiple vertebral fractures, aortic stenosis, history of Tayler-en-Y gastric bypass, major depression, and severe alcohol use disorder. She presents to the emergency department with complaint concerns regarding left leg discomfort and weakness, that she feels is in the muscle, worsening over the past several days. Left leg pain/weakness- CT scan head was negative CT scan lumbar spine showed no acute lumbar findings Patient reports that she has a arthroscopic procedure scheduled with Dr. Madden on 01/28, but does not feel that the pain is related to that Lower extremity venous Dopplers pending at this time, and if abnormal, will need to be started on anticoagulation Alcohol use disorder- Hold off on AWSS order set for now, but may be needed if showing signs of withdrawal Pancreatic head cystic lesion- Noted on CT scan Order MRI abdomen with contrast as recommended Transaminitis- AST 122, ALT 47 AST has been elevated as high as 248 on 12/23, and then improved to 59 on 12/24 Likely related to alcohol ingestion Repeat laboratories in a.m. Dehydration- Placed on NSS plus KCl 20 mEq at 100 mL/h x 1 L History of Present Illness Chief Complaint: The patient presents to the emergency department with complaint of left leg discomfort, initially began over the past few months, then worsened over the past 4 to 5 days, and reports that worsened after she fell yesterday. Primary Care Provider: Emily Diehl Patient is a 69-year-old female with a past medical history including vitamin deficiency, multiple vertebral fractures, aortic stenosis, history of Tayler-en-Y gastric bypass, major depression, and severe alcohol use disorder. She presents to the emergency department with complaint concerns regarding left leg discomfort and weakness, that she feels is in the muscle, worsening over the past several days. Allergies Allergy/AdvReac Type Severity Reaction Status Date / Time No Known Allergies Allergy Verified 01/15/25 15:51 Home Medications Medication Instructions Recorded Confirmed Type acetaminophen 500 mg tablet 1,000 mg (2 x 500 mg) PO Q8H PRN 02/09/24 01/15/25 Rx (Tylenol Extra Strength) pain or fever #30 tabs multivitamin 1 tab PO DAILY #30 tabs 02/09/24 01/15/25 Rx ondansetron 4 mg disintegrating 4 mg PO Q6H PRN nausea and 02/09/24 01/15/25 Rx tablet vomiting #10 tabs quetiapine 100 mg tablet 100 mg PO HS #30 tabs 02/09/24 01/15/25 Rx acyclovir 5 % topical ointment 1 applic topical QID PRN Secretions 06/20/24 01/15/25 History (Zovirax) hydrocodone 5 mg-acetaminophen 325 1 tab PO Q6H PRN pain #10 tabs 06/29/24 01/15/25 Rx mg tablet valacyclovir 1 gram tablet 500 mg PO DAILY PRN Cold Sores 12/16/24 01/15/25 History hydroxyzine pamoate 100 mg capsule 150 mg PO HS 12/23/24 01/15/25 History lisinopril 5 mg tablet (Zestril) 10 mg PO HS 12/23/24 01/15/25 History alendronate 70 mg tablet 70 mg PO WK 01/15/25 01/15/25 History folic acid 1 mg tablet 1 mg PO HS 01/15/25 01/15/25 History pantoprazole 20 mg tablet,delayed 20 mg PO HS 01/15/25 01/15/25 History release sertraline 100 mg tablet 100 mg PO HS 01/15/25 01/15/25 History sertraline 50 mg tablet 50 mg PO HS 01/15/25 01/15/25 History thiamine HCl (vitamin B1) 100 mg 100 mg PO DAILY 01/15/25 01/15/25 History tablet Past Med/Surg History Problem List (Updated 01/15/25 @ 17:38 by Brandon Hansen MD) Transaminitis Left leg pain Dysphagia Acute UTI (urinary tract infection) (Acute) Hypocalcemia (Acute) Severe diabetic hypoglycemia (Acute) Hypomagnesemia (Acute) Unresponsive episode (Acute) Non-compliant patient Thiamine deficiency Cough Herpes labialis Compression fracture of C7 vertebra Burst fracture of thoracic vertebra Hypomagnesemia (Acute) Compression fracture of T2 vertebra Compression fracture of T1 vertebra (Acute) Compression fracture of C7 vertebra (Acute) Closed fracture of manubrium (Acute) Aortic stenosis History of Tayler-en-Y gastric bypass Iron deficiency anemia Major depression Severe alcohol use disorder Hypomagnesemia (Acute) Low back pain (Acute) Weakness (Acute) Acute kidney injury (Acute) Fall (Acute) Anemia (Acute) Acute chest wall pain (Acute) Starvation ketoacidosis Urinary tract infection due to Klebsiella species Nausea and vomiting History of gastric bypass (Acute) Anemia (Acute) MURALI (acute kidney injury) (Acute) Vomiting and diarrhea (Acute) Syncope (Acute) Hypotension (Acute) Esophageal dysmotility Poor nutrition (Acute) Encounter for pre-operative examination Depression Alcohol intoxication (Acute) Syncope (Acute) Cholecystitis (Acute 01/09/14) Abdominal pain (Acute) Medical History Compression fracture of C7 vertebra no ROM issues per pt Thiamin deficiency Aortic stenosis pt unaware Hyponatremia GERD (gastroesophageal reflux disease) Alcohol use disorder Osteoarthritis Acid reflux Anemia History of depression Insomnia Hypertension Surgical History [place] teeth removed H/O gastric bypass History of section x 1 History of open reduction and internal fixation (ORIF) procedure right wrist--hardware in place History of total left hip replacement History of colonoscopy History of esophagogastroduodenoscopy (EGD) History of wisdom tooth extraction History of cholecystectomy H/O: hysterectomy Family History Other No family history of adverse response to anesthesia Social History Smoking Status: Never smoker Second Hand Exposure: Yes (as child); Do You Dip or Chew Tobacco: No; Hx Alcohol Use: No Hx Substance Use: No Preferred Language: Green[place]ic Communication Ability: Effective 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 Gymnastics Coach Required: No Beliefs That Will Affect Care: None Current Living Situation: Longterm Current Living Situation Comment: Independent Living facility Other Information That Helps Us Care for You: No Feels Safe at Home: Yes Safety Concerns: Feels Safe At This Time Assistive Devices: None Review of Systems Review of Systems: The patient denies chest pain, palpitations, shortness of breath, dyspnea on exertion, cough, sore throat, fevers, chills, sweats, weight change, fatigue, nausea, vomiting, diarrhea , constipation, abdominal pain, pelvic pain, blood in urine or stool, dysuria, urinary frequency or urgency, lightheadedness, dizziness, headache, memory loss, loss of consciousness, rash, abnormal bruising or bleeding, focal or generalized weakness, numbness or tingling in arms or right leg, generalized arthralgias or myalgias, back or neck pain, or night sweats. The review of systems is otherwise negative other than for that already noted above, and at least 10 systems have been reviewed. Physical Exam Physical Exam: The patient is awake, alert and oriented 3, well developed and well nourished, normocephalic and atraumatic, lying in bed and in no acute distress. HEENT--PERRL, EOMI, mucous membranes and oropharynx mildly dry. Neck--supple. No JVD. No bruits. Thyroid normal, trachea midline, no adenopathy. Heart--normal S1 and S2. No murmurs, rubs or gallops. Lungs--clear bilaterally, no respiratory distress, no accessory muscle use. Abdomen--normal bowel sounds and soft. Nontender. Nondistended, no hernias or masses, no organomegaly. Extremities--no cyanosis or clubbing. No edema. There are good distal pulses b/l. Dermatologic--normal skin turgor, normal color, no abnormal lymph nodes, no rash. Neurologic--cranial nerves II through XII grossly intact. Rheumatologic-mild reproducible pain over left thigh Psychiatric--normal affect. Results & Data Results & Data Vital Signs (Past 12 Hours) Vital Signs Temp Pulse Resp BP Pulse Ox O2 Del Method 01/15/25 16:15 168/107 H 98 Room Air 01/15/25 15:00 151/93 H 99 Room Air 01/15/25 14:21 90 11 L 141/111 H 97 01/15/25 14:19 90 20 94 Room Air 01/15/25 14:10 36.9 C 92 H 19 141/111 H 92 Room Air Laboratory Results Laboratory Results WBC 7.71 K/ul (4.8-10.8) 01/15/25 14:24 RBC 3.64 M/uL (4.20-5.40) L 01/15/25 14:24 Hgb 12.4 g/dl (12.0-16.0) 01/15/25 14:24 Hct 37.7 % (37.0-47.0) 01/15/25 14:24 MCV 103.6 fL (80.0-100.0) H 01/15/25 14:24 MCH 34.1 pg (25.0-34.0) H 01/15/25 14:24 MCHC 32.9 g/dL (32.0-36.0) 01/15/25 14:24 RDW Std Deviation 49.2 fL (36.4-46.3) H 01/15/25 14:24 RDW Coeff of Cate 13.0 % (11.5-14.5) 01/15/25 14:24 Plt Count 306 K/uL (130-400) 01/15/25 14:24 MPV 8.6 fL (9.4-12.4) L 01/15/25 14:24 Immature Gran % (Auto) 0.5 % 01/15/25 14:24 Neut % (Auto) 75.3 % 01/15/25 14:24 Lymph % (Auto) 14.0 % 01/15/25 14:24 [place] % (Auto) 8.9 % 01/15/25 14:24 Eos % (Auto) 0.9 % 01/15/25 14:24 Baso % (Auto) 0.4 % 01/15/25 14:24 Neut # (Auto) 5.80 K/uL (1.40-6.50) 01/15/25 14:24 Lymph # (Auto) 1.08 K/uL (1.20-3.40) L 01/15/25 14:24 [place] # (Auto) 0.69 K/uL (0.11-0.59) H 01/15/25 14:24 Eos # (Auto) 0.07 K/uL (0.00-0.50) 01/15/25 14:24 Baso # (Auto) 0.03 K/uL (0.00-0.20) 01/15/25 14:24 Immature Gran # (Auto) 0.04 K/uL (0.01-0.20) 01/15/25 14:24 Sodium 139 mmol/L (136-145) 01/15/25 14:24 Potassium 3.8 mmol/L (3.5-5.1) 01/15/25 14:24 Chloride 106 mmol/L (98-107) 01/15/25 14:24 Carbon Dioxide 26 mmol/L (21-32) 01/15/25 14:24 Anion Gap 7 (3-11) 01/15/25 14:24 BUN 9 mg/dl (6-23) 01/15/25 14:24 Creatinine 0.61 mg/dl (0.6-1.2) 01/15/25 14:24 Est Cr Clr Drug Dosing 82.1 ml/min 01/15/25 14:24 eGFR 96.72 01/15/25 14:24 BUN/Creatinine Ratio 14.8 (10-20) 01/15/25 14:24 Glucose 113 mg/dl (70-99(Fasting)) H 01/15/25 14:24 Calcium 8.4 mg/dl (8.6-10.3) L 01/15/25 14:24 Total Bilirubin 0.5 mg/dl (0.2-1.0) 01/15/25 14:24 AST 122 U/L (13-39) H 01/15/25 14:24 ALT 47 U/L (7-52) 01/15/25 14:24 Alkaline Phosphatase 109 U/L (34-104) H 01/15/25 14:24 Total Protein 6.0 gm/dl (6.0-8.3) 01/15/25 14:24 Albumin 3.3 gm/dl (3.4-5.0) L 01/15/25 14:24 Globulin 2.7 gm/dl (2.5-4.0) 01/15/25 14:24 Albumin/Globulin Ratio 1.2 (0.9-2) 01/15/25 14:24 Lipase 19 U/L (11-82) 01/15/25 14:[address] 01/15/25 14:13 CT head without contrast History: Fall Comparison: None Technique: Using multidetector thin collimation helical acquisition technique, axial, coronal and sagittal CT images from the skull base to the vertex were obtained without intravenous contrast. Dose reduction techniques were achieved by using automatic exposure control and/or adjustment of mA and/or kV according to patient size and/or use of iterative reconstruction technique. Findings: No intracranial hemorrhage, mass-effect, or midline shift. The ventricles are proportionate to the cerebral sulci. The teran to white matter differentiation of the cerebral hemispheres is preserved. The basal cisterns are patent. Mild to moderate cerebral atrophy. The visualized paranasal sinuses are clear. Mastoid air cells are clear. Impression: No acute intracranial pathology. Electronically signed by Wade Santo 01-15-2025 3:[address] 01/15/25 14:13 CT lumbar spine without contrast History: Fall Comparison: November 16, 2023 Technique: Using multidetector thin collimation helical acquisition technique, axial, coronal and sagittal CT images through the lumbar spine were obtained without intravenous contrast. Dose reduction techniques were achieved by using automatic exposure control and/or adjustment of mA and/or kV according to patient size and/or use of iterative reconstruction technique. Findings: There are 5 lumbar type vertebrae. Regarding alignment, the lumbar spine alignment appears preserved. There is no significant disc space narrowing at any level. No definite lesions are noted within the vertebra. Moderate degenerative facet arthropathy at L5-S1. Endplate Schmorl's node formation at L2-L3. The visualized adjacent paraspinous tissues are grossly within normal limits. Calcifications in the head of the pancreas suggesting sequelae of chronic pancreatitis. There is also an apparent cystic lesion in the head of the pancreas, series 12 image 112 measuring approximately 1.5 cm. Impression: No acute bony abnormality of the lumbar spine. There is an apparent cystic lesion in the head of the pancreas. Recommend nonemergent follow-up abdominal MRI with IV contrast. Electronically signed by Wade Santo 01-15-2025 3:19 PM Code Status & VTE Plan Code Status Full code VTE Prophylaxis Plan VTE Prophylaxis will be ordered: Yes PG Care Time/CCT Total # of Minutes Spent Total Time Spent with Patient: Total time spent is greater than 50% in coordination of care (as documented) at patient's floor/unit and/or counseling patient: Coding Level of Care Code 91699 INT INP/OBS CARE 3/75MIN Diagnoses Left leg pain M79.605 Thiamine deficiency E51.9 Severe alcohol use disorder F10.20 Transaminitis R74.01
--- NOTE | 2025-01-15 18:51 | Ultrasound Report ---
EXAM: US venous doppler LE LT CLINICAL HISTORY: lle pain. TECHNIQUE: Ultrasound examination of left lower extremity veins was performed in real time and duplex. One or more of the following were performed- spectral analysis, resistive index, waveform analysis, and pulsed Doppler. COMPARISON: 12/09/2024 US venous doppler LE LT. FINDINGS: Normal phasic, non-pulsatile, and spontaneous flow is noted in the left common femoral, superficial femoral, popliteal, posterior tibial, and anterior tibial veins. Visualized veins of left lower extremity demonstrate normal compressibility. No sonographic evidence of acute deep vein thrombosis (DVT) is detected in the visualized veins of left lower extremity. Compression and Augmentation: All evaluated veins compress fully with applied transducer pressure. Augmentation of venous flow is noted with distal compression. Additional Findings: No evidence of intraluminal thrombus. IMPRESSION: 1. No sonographic evidence of acute DVT detected in the left common femoral, superficial femoral, popliteal, posterior tibial, and anterior tibial veins, at the time of examination. 2. No marked interval changes. Disclaimer: DVT could be missed early in the disease when clot burden is minimal. For patients with moderate and high pretest probability of DVT and negative ultrasound, the [place] [employer] clinical guidelines recommend testing with a D-dimer assay or repeat ultrasound in 5-7 days. If symptoms worsen, the Society of radiologists in ultrasound recommends repeating ultrasound even earlier. Electronically signed by Juan José Hernández 01-15-2025 6:49 PM
[2025-01-15] MEDS: GADOBUTROL 65ML VIAL IV ONE (19:12)
[2025-01-15] MEDS ORDERED: ACETAMINOPHEN 325 MG TAB PO PRN (19:22)
[2025-01-15] MEDS ORDERED: ONDANSETRON 4 MG OD TAB PO PRN (19:22)
[2025-01-15] MEDS: FOLIC ACID 1 MG TAB PO SCH (20:17)
[2025-01-15] MEDS: SERTRALINE HCL 50 MG TABLET PO SCH (20:19)
[2025-01-15] MEDS: SERTRALINE HCL 100 MG TABLET PO SCH (20:19)
[2025-01-15] MEDS: HYDROCODONE/ACETAMOPHEN 5/325MG TAB PO PRN (20:19)
[2025-01-15] MEDS: NSS + 20MEQ KCL 20 MEQ/1,000 ML BAG IV SCH (20:19)
[2025-01-16 06:30] LABS: Hematocrit (blood only) 31.8 % (37.0-47.0); Hemoglobin 10.4 g/dl (12.0-16.0); Immature Granulocytes # (auto) 0.03 K/uL (0.01-0.20); Immature Granulocytes % (auto) 0.3 %; Mean Corpuscular Hemoglobin 34.8 pg (25.0-34.0); Mean Corpuscular Volume 106.4 fL (80.0-100.0); Platelet Count 265 K/uL (130-400); RDW Standard Deviation 51.5 fL (36.4-46.3); Red Blood Count 2.99 M/uL (4.20-5.40); White Blood Count 8.70 K/ul (4.8-10.8)
[2025-01-16 06:34] LABS: Anion Gap 6.0 (3-11); Bilirubin,Total 0.4 mg/dl (0.2-1.0); Calcium 7.1 mg/dl (8.6-10.3); Carbon Dioxide 19.0 mmol/L (21-32); Chloride 115.0 mmol/L (98-107); Magnesium 1.5 mg/dl (1.7-2.4); Potassium 4.4 mmol/L (3.5-5.1); Sodium 140.0 mmol/L (136-145)
[2025-01-16 07:03] LABS: Alanine Aminotransferase 54.0 U/L (7-52); Albumin Globulin Ratio 1.2 (0.9-2); Alkaline Phosphatase 90.0 U/L (34-104); Blood Urea Nitrogen 10.0 mg/dl (6-23); Creatinine Clr Calc Pharmacy 96.4 ml/min; Globulin 2.1 gm/dl (2.5-4.0); Glucose 78.0 mg/dl (70-99(Fasting)); Total Protein 4.6 gm/dl (6.0-8.3)
[2025-01-16] MEDS: THIAMINE HCL 100 MG TAB PO SCH (08:12)
[2025-01-16] MEDS: MULTIVITAMIN TAB PO SCH (08:12)
[2025-01-16] MEDS: MAGNESIUM SULFATE / D5W 1 GM/100 ML BAG IV SCH (09:02)
--- NOTE | 2025-01-16 09:08 | Magnetic Resonance Report ---
EXAM: MR abdomen wo/w con CLINICAL HISTORY: Pancreatic head cyst on CT. TECHNIQUE: Multiplanar, multisequence MR imaging was performed through the abdomen with and without IV contrast, 6 ml Gadavist. COMPARISON: None. FINDINGS: Liver: Normal size and morphology. Homogeneous signal intensity on T1 and T2-weighted images. No focal hepatic lesions. Normal enhancement pattern post-contrast. Gallbladder and Biliary System: The gallbladder is not seen. Intrahepatic bile ducts are not dilated. The CBD is a prominent measure up to 1.2cm, likely due to the status of post-cholecystectomy Normal enhancement post-contrast. Pancreas: Normal size and contour. A 1.6cm well-defined, thin-walled cyst in the anterior head, no gross enhancement post-contrast, likely a pseudocyst Normal enhancement post-contrast. Spleen: Normal size and appearance. Homogeneous signal intensity. No focal lesions. Normal enhancement post-contrast. Adrenal Glands: Normal size and morphology bilaterally. No adrenal masses. Normal enhancement post-contrast. Kidneys and Ureters: Normal size, shape, and position of both kidneys. Homogeneous signal intensity on T1 and T2-weighted images. No renal stones, masses, or hydronephrosis. Ureters are unremarkable. Normal enhancement post-contrast. Bowel: A moderate-sized hiatal hernia was noted. Normal appearance of the visualized bowel loops. No evidence of obstruction, wall thickening, or abnormal dilatation. No abnormal enhancement post-contrast. Vascular Structures: The abdominal aorta and its major branches are normal in caliber. No aneurysm or significant atherosclerosis. Normal enhancement post-contrast. Lymph Nodes: No pathologically enlarged lymph nodes in the abdomen. Peritoneum: No free fluid or free air in the abdomen. Bones: No lytic or sclerotic lesions. Soft Tissues: Normal appearance of the visualized soft tissues. IMPRESSION: 1. A 1.6cm well-defined, thin-walled cyst in the anterior head, no gross enhancement post-contrast, likely a pseudocyst/simple cyst. 2. A moderate-sized hiatal hernia was noted. 3. The CBD is a prominent measure up to 1.2cm, likely due to the status of post-cholecystectomy. Electronically signed by Juan José Hernández 01-16-2025 09:08 AM
[2025-01-16 15:14] LABS: Thyroid Stimulating Hormone 1.58 uIu/ml (0.300-4.500)
[2025-01-16] MEDS: GADOBUTROL 30ML VIAL IV ONE (15:20)
[2025-01-16 15:22] LABS: Creatine Kinase 5282.0 U/L (26-192)
--- NOTE | 2025-01-16 16:26 | Magnetic Resonance Report ---
EXAMINATION: MRI brain with and without contrast CLINICAL HISTORY: Rapidly progressing weakness of arm and leg PRIORS: 01/15/2025 CT TECHNIQUE: Multiplanar multisequence imaging was obtained through the brain without and with the use of intravenous contrast. FINDINGS: Moderate parenchymal volume loss is noted. No restricted diffusion to suggest acute or subacute infarction. No hemosiderin on the gradient sequence. No large intra-axial or extra-axial hemorrhage. Appropriate teran-white differentiation is identified. No vasogenic edema. Ventricles are normal in size and configuration. No significant white matter change or small vessel occlusive disease identified. Brainstem and cerebellum unremarkable. No enhancing CP angle mass. Very mild mucosal thickening of the mastoid air cells. Paranasal sinuses, globes and retrobulbar fat have a normal appearance. IMPRESSION: 1. Moderate diffuse parenchymal volume loss with no MRI evidence of an acute intracranial abnormality. Electronically signed by Ashwini Urias 01-16-2025 4:26 PM
--- NOTE | 2025-01-16 16:39 | Magnetic Resonance Report ---
EXAMINATION: MRI cervical spine without and with contrast CLINICAL HISTORY: Rapidly progressing weakness of arm and leg PRIORS: Plain film TECHNIQUE: Multiplanar multisequence imaging was obtained through the cervical spine without the use of intravenous contrast. FINDINGS: Alignment: Alignment is maintained. Mild osseous demineralization noted with marrow redistribution. A mild compression fracture of the T2 vertebral body, without bone marrow edema representing a chronic finding with no retropulsed fragments. Bone marrow signal: No significant edema present in the vertebral bodies. No contrast enhancement. Cervical cord: Allowing for CSF pulsation artifact, cervical cord is normal in size and signal intensity. No demyelinating plaques or syrinx. No enhancement in the cervical cord. Low-lying cerebellar tonsils: No Intervertebral disc signal: Diminished Dens: Intact. C2-C3 THROUGH C5-C6: Demonstrates no focal intervertebral disc extrusion, free disc fragment, neuroforaminal stenosis or spinal stenosis. No nerve root impingement. C6-C7: A large broad-based diffuse disc bulges present creating effacement of the ventral thecal space without altered signal in the cord, free disc fragment or spinal stenosis. Mild neuroforaminal stenosis noted. These changes may come into contact with the exiting nerve roots. C7-T1 is unremarkable. No enhancing soft tissue mass. IMPRESSION: 1. Broad-based diffuse disc bulges present at C6/C7 with mild bilateral neural foraminal stenosis and changes that may come into contact with the exiting nerve roots. No free disc fragment or spinal stenosis. 2. No altered signal within the cervical cord or enhancing mass or demyelinating plaque. 3. Mild chronicT2 vertebral body compression fracture. ACT 112: Positive. There are findings on this examination that require communication between the performing entity and the patient following Patient Test Result Information Act ([place] ACT 112) guidelines. Electronically signed by Ashwini Urias 01-16-2025 4:39 PM
[2025-01-16] MEDS: LACTATED RINGER'S 1,000 ML IV SCH (17:04)
--- NOTE | 2025-01-16 17:27 | Hospitalist Progress Note ---
Date of Service January 16, 2025 Assessment & Plan (1) Rhabdomyolysis: (2) Severe alcohol use disorder: (3) Hypoglycemia: (4) Hypomagnesemia: (5) History of Tayler-en-Y gastric bypass: Plan 69-year-old woman with osteoporosis and cervical and thoracic compression fractures, aortic stenosis, history of Tayler-en-Y gastric bypass, major depression, and severe alcohol use disorder. She came in with a week's worth of muscle weakness and muscle soreness. This led to a fall from standing the day of admission. On my exam proximal UE and LE muscle weakness that is not completely symmetric, but crossing in that LUE and RLE were weaker. Quads/hamstring and tricep muscles are sore. No eyelid lag with sustained upward gaze. No tongue fasciculations. Her family reports severe hypoglycemia episodes recently and she is not diabetic or on any hypoglycemic agents Considered myopathy, PMR, cervical myelopathy, myasthenia gravis, MS, stroke although symptoms are not very consistent with stroke. Obtained further evaluation today: MR cspine and MR brain both with contrast with no stroke, no demyelinating lesions, no cervical spinal stenosis ESR and CRP are low Vit D 29 near normal Phos was normal TSH normal CK very elevated at >5000, LDH elevated at 400 Aldolase pending B1 B12 normal within the year Consider Vitamin E and selenium #Rhabdomyolysis, possibly alcohol induced or related to severe/prolonged hypoglycemia episodes. Other myopathies are possible (viral, polymyositis) Reviewed med list - not on statin or fibrate. -IV LR -monitor CK qAM -monitor renal function - normal at this time -UA -check PTH and ionized calcium -PT and OT #Hypoglycemia in non-diabetic. May be related to alcoholism, poor oral intake, setting of gastric bypass -monitor blood glucose -cosyntropin stim test. Renal and hepatic function should be good enough for gluconeogenesis. consider checking insulin level. # Pancreatic head cystic lesion- Noted on CT scan MRI abdomen shows a simple cyst - probably a pseudocyst. Has chronic pancreatitis # Chronic diarrhea - trial pancrelipase. could also have bile acid diarrhea # Severe alcohol use disorder, history of alcohol withdrawal - thiamine/folate supp - AWSS at risk protocol # Alcoholic liver disease with characteristic AST>ALT # hypomagnesemia - chronic. Replacing 1.5 with 2g magnesium DVT ppx: enox 40 sq Admission and Anticipated Discharge Date Admission Date: January 15, 2025 Subjective Has felt much weaker than usual starting a week ago. She says this was an abrupt change. Gradually worsened until yesterday she was going across her room and she just could not lift her feet to walk. The left leg has been worse but the right is also weaker than usual then she fell. She has had soreness of the muscles of her thighs and also arms sara triceps. No falls since winter, excepting the fall yesterday. No changes in meds. Continues to eat poorly. Has constipation alternating with diarrhea. Has had muscle fasciculations sometimes but this is nothing new. Jaw pain with chewing but thats longstanding from TMJ. No eye pain but bilateral visual acuity is getting poorer. No episodes of amaurosis fugax. Has not had trouble keeping head up or eyelids open. Is fatigable, can't walk far. No rashes numbness or dysesthesia. No swollen joints. Does have esophageal dysmotility. Physical Exam Physical Exam: Last 24h vitals reviewed GEN: no acute distress, sitting in bed HEENT: pupils equal, sclerae anicteric, moist MM. no tongue fasciculations RESP: normal WOB, CTAB CV: reg no mrg ABD: soft/nt/nd +BT : no miller SKIN: warm and dry, no generalized rashes NEURO: AOx person, place, and situation. Face symmetric, speech normal, tongue midline, no numbness or dysesthesia. She has bilateral proximal muscle weakness. Today LUE is a little weaker than right and RLE is weaker than left (especially hip flexors but also knee flexion/extension). artificial flower maker and dorsi/plantar flexion are strong. Results & Data Results & Data Vital Signs (Past 12 Hours) Vital Signs Temp Pulse Resp BP Pulse Ox O2 Del Method 01/16/25 15:46 36.5 C 85 16 146/91 H 95 Room Air 01/16/25 07:49 36.5 C 79 16 136/89 96 Room Air Laboratory Results W8, Hg 12-->10 K 4.4, Cr 0.52, mag 1.5 and phos normal CK 5000s, LDH also elevated AST>ALT elevation normal bilirubin CRP not elevated Diagnostic Findings LE duplex negative CT L spine without any significant findings Incidentally noted pancreas head lesion PG Care Time/CCT Total # of Minutes Spent Total Time Spent with Patient: Total time spent is greater than 50% in coordination of care (as documented) at patient's floor/unit and/or counseling patient: Coding Level of Care Code 49114 SUB INP/OBS CARE 350MIN Diagnoses Rhabdomyolysis M62.82 Severe alcohol use disorder F10.20 Hypoglycemia E16.2 Hypomagnesemia E83.42 History of Tayler-en-Y gastric bypass Z98.84
[2025-01-16] MEDS ORDERED: LORazepam 1 MG TAB PO PRN (17:34)
[2025-01-16] MEDS ORDERED: COSYNTROPIN 250 MCG in SYRINGE 4 ML IV ONE (18:00)
[2025-01-16] MEDS ORDERED: Nursing to Pharmacy Communication SCH (18:30)
[2025-01-16 18:39] LABS: Appearance Urine Clear (Clear); Bacteria Urine Automated None Seen (None Seen); Cast Urine Automated 0-2 /lpf (0-2); Epithelial Cell Urine Auto 0-2 /hpf (0-2); Glucose Urine UA Negative (Negative); RBC Urine Automated 0-2 /hpf (0-2); WBC Urine Automated 0-5 /hpf (0-5)
[2025-01-17] MEDS: PANCREAZE (LIPASE 10,500U) CAP PO SCH (07:19)
[2025-01-17] MEDS: FOLIC ACID 1 MG TAB PO SCH (07:19)
[2025-01-17] MEDS: ENOXAPARIN INJ 40 MG/0.4 ML SYR SQ SCH (07:25)
[2025-01-17] MEDS: COSYNTROPIN 250 MCG in SYRINGE 4 ML IV ONE (08:54)
[2025-01-17 09:19] LABS: Alanine Aminotransferase 72.0 U/L (7-52); Albumin Globulin Ratio 1.1 (0.9-2); Alkaline Phosphatase 86.0 U/L (34-104); Anion Gap 4.0 (3-11); Bilirubin,Total 0.4 mg/dl (0.2-1.0); Blood Urea Nitrogen 10.0 mg/dl (6-23); Calcium 7.8 mg/dl (8.6-10.3); Carbon Dioxide 26.0 mmol/L (21-32); Chloride 110.0 mmol/L (98-107); Creatinine Clr Calc Pharmacy 94.5 ml/min; Globulin 2.3 gm/dl (2.5-4.0); Glucose 91.0 mg/dl (70-99(Fasting)); Magnesium 1.7 mg/dl (1.7-2.4); Potassium 4.2 mmol/L (3.5-5.1); Sodium 140.0 mmol/L (136-145); Total Protein 4.8 gm/dl (6.0-8.3)
[2025-01-17 11:21] LABS: Hematocrit (blood only) 34.7 % (37.0-47.0); Hemoglobin 11.6 g/dl (12.0-16.0); Mean Corpuscular Hemoglobin 34.1 pg (25.0-34.0); Mean Corpuscular Volume 102.1 fL (80.0-100.0); Platelet Count 299 K/uL (130-400); RDW Standard Deviation 48.6 fL (36.4-46.3); Red Blood Count 3.40 M/uL (4.20-5.40); White Blood Count 9.01 K/ul (4.8-10.8)
[2025-01-17 14:41] LABS: Creatine Kinase 2160.0 U/L (26-192)
[2025-01-17] MEDS: LACTATED RINGER'S 1,000 ML IV SCH (17:02)
[2025-01-17] MEDS: SUCRALFATE 1 GM/10 ML UDC PO SCH (17:14)
--- NOTE | 2025-01-17 17:23 | Hospitalist Progress Note ---
Date of Service January 17, 2025 Assessment & Plan (1) Rhabdomyolysis: (2) Severe alcohol use disorder: (3) Hypoglycemia: (4) Hypomagnesemia: (5) History of Tayler-en-Y gastric bypass: Plan 69-year-old woman with osteoporosis and cervical and thoracic compression fractures, aortic stenosis, history of Tayler-en-Y gastric bypass, major depression, and severe alcohol use disorder. She came in with a week's worth of muscle weakness and muscle soreness, especially her L leg. This led to a fall from standing the day of admission. Jayjay had severe hypoglycemia episode a few weeks ago with BG 17 for medics and admitted - combo of alcohol and eating poorly with dysphagia, nausea/vomiting, chronic intermittent diarrhea, Tayler-en-Y gastric bypass. Found to have anastomotic ulcer at GJ anastomosis, esophageal dysmotility. Reviewed records from that hospitalization. Considered myopathy, PMR, cervical myelopathy, myasthenia gravis, MS, stroke although symptoms are not very consistent with stroke. Obtained further evaluation 01/16-01/17: MR cspine and MR brain both with contrast with no stroke, no demyelinating lesions, no cervical spinal stenosis ESR 8 and CRP 1.97 Vit D 29 near normal Phos was normal, mag mildly low 1.5 TSH normal Cosyntropin stim test was normal 01/17, peak cortisol >20 B1 B12 normal within the year Aldolase pending Consider Vitamin E and selenium CK very elevated at >5000, LDH elevated at 400 #Rhabdomyolysis, possibly alcohol induced or medication related. No significant time on floor. Other myopathies are possible (viral, polymyositis, nutritional) Reviewed med list - not on statin or fibrate or other medications that are too suspicious, however, increased incidence of rhabdo reported with SSRIs and atypical antipsychotics (she is on sertraline and quetiapine). -IV LR overnight and CK 5282-->2160. Symptoms unchanged overall, soreness more generalized -continue LR at 125 - ordered 2L more -monitor CK qAM -monitor renal function - remains normal at this time, CK not high enough to cause renal injury at this point -UA with +heme but no pyuria -checked PTH and ionized calcium - both normal -PT and OT - rec SNF CK improving nicely, watch for resolution of elevated CK and improvement in symptoms. If this does not happen, CK remains elevated and soreness persists, then its not a one time episode and will need further evaluation. Which could include Rheumatology consult, Vit E and selenium levels, consider stopping quetiapine and sertraline which would be problematic #Hypoglycemia in non-diabetic. Was related to alcoholism, poor oral intake because of vomiting, setting of gastric bypass -BG has been >100 for 24h of checks - stopped routine checks -cosyntropin stim test was normal # Pancreatic head cystic lesion - incidental, noted on CT scan. MRI abdomen shows a simple cyst - probably a pseudocyst # Chronic pancreatitis based on imaging # Chronic intermittent diarrhea - trial pancrelipase for possible pancreas exocrine insufficiency. could also have bile acid diarrhea #Esophageal dysmotility #Ulcer at GJ anastomosis -ordered carafate -increase PPI to 40 mg daily dose at discharge. She's had recurrent ulcers. # Severe alcohol use disorder, history of alcohol withdrawal - thiamine/folate supp - AWSS at risk protocol # Alcoholic liver disease with characteristic AST>ALT - fairly same today. Some might be coming from muscle. Bilirubin normal and INR has been normal. # hypomagnesemia - chronic. Replaced IV - 1.7 today DVT ppx: enox 40 sq Care coord has made referral to [facility] Admission and Anticipated Discharge Date Admission Date: January 15, 2025 Subjective continues to have weakness and muscle soreness. Soreness more generalized now (previously more focal ache in L quad) got up with PT and walked a little bit, into chair no diarrhea today, had BM Physical Exam 2 Physical Exam: Last 24h vitals reviewed GEN:lying in bed watching TV HEENT: pupils equal, sclerae anicteric, moist MM RESP: normal WOB CV: ABD: : no miller SKIN: warm and dry, no generalized rashes NEURO: AOx person, place, and situation. Face symmetric, speech normal, generalized prox muscle weakness Results & Data Results & Data Vital Signs (Past 12 Hours) Vital Signs Temp Pulse Resp BP Pulse Ox O2 Del Method 01/17/25 14:46 36.7 C 94 H 16 130/83 96 Room Air 01/17/25 06:59 36.4 C L 80 16 148/90 H 95 Room Air 01/17/25 06:31 36.5 C 82 18 155/91 H 96 Room Air Laboratory Results 01/17/25 09:59 01/17/25 08:46 PG Care Time/CCT Total # of Minutes Spent Total Time Spent with Patient: Total time spent is greater than 50% in coordination of care (as documented) at patient's floor/unit and/or counseling patient: Coding Level of Care Code 09350 SUB INP/OBS CARE 3/50MIN Diagnoses Rhabdomyolysis M62.82 Severe alcohol use disorder F10.20 Hypoglycemia E16.2 Hypomagnesemia E83.42 History of Tayler-en-Y gastric bypass Z98.84
[2025-01-18 08:11] LABS: Alanine Aminotransferase 67.0 U/L (7-52); Alkaline Phosphatase 78.0 U/L (34-104); Anion Gap 5.0 (3-11); Bilirubin,Total 0.3 mg/dl (0.2-1.0); Blood Urea Nitrogen 12.0 mg/dl (6-23); Calcium 8.2 mg/dl (8.6-10.3); Carbon Dioxide 26.0 mmol/L (21-32); Chloride 110.0 mmol/L (98-107); Creatine Kinase 809.0 U/L (26-192); Creatinine Clr Calc Pharmacy 79.5 ml/min; Glucose 90.0 mg/dl (70-99(Fasting)); Potassium 4.1 mmol/L (3.5-5.1); Sodium 141.0 mmol/L (136-145); Total Protein 5.0 gm/dl (6.0-8.3)
[2025-01-18] MEDS: GADOBUTROL 65ML VIAL IV ONE (12:38)
--- NOTE | 2025-01-18 14:04 | Magnetic Resonance Report ---
MR femur LT wo/w con CLINICAL HISTORY: suspected myositis COMPARISON STUDY: X-ray of 11/15/2023 of the left hip and MRI of the left knee 11/16/2024 FINDINGS: There is susceptibility artifact from the left hip prosthesis. There is motion artifact. Th ere is grossly stable osteoarthritis at the left knee. No fracture seen at the left femur. No evidenc e of osteomyelitis. There is moderate diffuse muscle atrophy at the left thigh. There is no soft tiss ue mass, hematoma, or abscess. No abnormal enhancement seen. IMPRESSION: No acute findings seen. ACT 112: Negative or not required by law. Electronically signed by: Pardeep Collier M.D. 01/18/2025 2:02 PM
--- NOTE | 2025-01-18 15:41 | Rheumatology Consultation ---
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 there is no evidence for an autoimmune inflamamtory myositis. MRI of the upper leg showed no inflammatory muscle changes. continue to treat conservatively. no need for steroids or immunosuppression. she is weak on exam and would continue with PT/OT. likely her knee scope will be delayed until she is better. (2) Transaminitis: likely related to myopathy and alcohol use (3) History of Tayler-en-Y gastric bypass: given EGD (ulcer noted) and history of gastric bypass would stop alendronate for osteoporosis. would suggest PCP change to IV reclast or prolia. (4) Severe alcohol use disorder: Plan 1. No current need for steroids or immunosuppression or muscle biopsy 2. continue with PT/OT 3. recommend stopping alendronate and PCP showed consider IV reclast or prolia for her osteoporosis 4. case discussed with Dr Mark 5. thank yo for the consult and involving me in this patients care 6. no need for rheumatology follow up as an outpatient for the myopathy but can help with osteoporosis management History of Present Illness Reason for Consultation: ? myositis Requesting Physician: Dr Mark Attending Physician: Kaity Mark MD History of Present Illness Pretty presented to [facility] several days ago with worsening lower leg weakness, especially the left leg. she has known lumbar DDD and left knee OA. she sees Dr Madden and was planned for a knee scope that has been delayed twice now. she was hospitalized several weeks ago for hypoglycemia likely related to malnutrition and alcohol use. she has history of severe alcohol abuse. she did have an EGD during during that stay that showed an ulcer at her anastomosis site from her history of gastric bypass. she reports issues with swallowing at times. she did have a video swallow after her last discharge that showed some dysmotility of the stomach. she states she did cut back on drinking since being discharged several weeks ago. she states over the last 1 week she had increasing pain and weakness in the left leg. this lead to inability to get around. she also had to a lesser degree myalgias in her right leg and upper arms. she was admitted 01/15 because she no longer could get around at her home. initially LFTs were noted to be elevated but no CK was checked. the next day (713) her CK was noted to be over 5000. she denied any rashes, hameturia, inflammatory arthritis. she has had the CK come down and today was in the 800 range. she still feels week especially the left leg and has trouble getting around. she has a rolling walker that she uses at home for balance issues and has been using it for 1 yr. last fall was in June that she is aware of but prior to the hospitalization in December she was found down on the ground by her daughter. she denies any history of autoimmune diseases in her family except a sister with MS. she denies any SOB. she did have a MRI of the upper leg prior tome seeing her today and no evidence of inflammatory myositis. reviewed imaging in the chart as well as labs. she denies any illness or new medications prior to recent admission. Allergies Allergy/AdvReac Type Severity Reaction Status Date / Time No Known Allergies Allergy Verified 01/15/25 15:51 Home Medications Medication Instructions Recorded Confirmed Type acetaminophen 500 mg tablet 1,000 mg (2 x 500 mg) PO Q8H PRN 02/09/24 01/15/25 Rx (Tylenol Extra Strength) pain or fever #30 tabs multivitamin 1 tab PO DAILY #30 tabs 02/09/24 01/15/25 Rx ondansetron 4 mg disintegrating 4 mg PO Q6H PRN nausea and 02/09/24 01/15/25 Rx tablet vomiting #10 tabs quetiapine 100 mg tablet 100 mg PO HS #30 tabs 02/09/24 01/15/25 Rx acyclovir 5 % topical ointment 1 applic topical QID PRN Secretions 06/20/24 01/15/25 History (Zovirax) hydrocodone 5 mg-acetaminophen 325 1 tab PO Q6H PRN pain #10 tabs 06/29/24 01/15/25 Rx mg tablet valacyclovir 1 gram tablet 500 mg PO DAILY PRN Cold Sores 12/16/24 01/15/25 History hydroxyzine pamoate 100 mg capsule 150 mg PO HS 12/23/24 01/15/25 History lisinopril 5 mg tablet (Zestril) 10 mg PO HS 12/23/24 01/15/25 History alendronate 70 mg tablet 70 mg PO WK 01/15/25 01/15/25 History folic acid 1 mg tablet 1 mg PO HS 01/15/25 01/15/25 History pantoprazole 20 mg tablet,delayed 20 mg PO HS 01/15/25 01/15/25 History release sertraline 100 mg tablet 100 mg PO HS 01/15/25 01/15/25 History sertraline 50 mg tablet 50 mg PO HS 01/15/25 01/15/25 History thiamine HCl (vitamin B1) 100 mg 100 mg PO DAILY 01/15/25 01/15/25 History tablet Patient History Medical History Compression fracture of C7 vertebra no ROM issues per pt Thiamin deficiency Aortic stenosis pt unaware Hyponatremia GERD (gastroesophageal reflux disease) Alcohol use disorder Osteoarthritis Acid reflux Anemia History of depression Insomnia Hypertension Surgical History [place] teeth removed H/O gastric bypass History of section x 1 History of open reduction and internal fixation (ORIF) procedure right wrist--hardware in place History of total left hip replacement History of colonoscopy History of esophagogastroduodenoscopy (EGD) History of wisdom tooth extraction History of cholecystectomy H/O: hysterectomy Family History Other No family history of adverse response to anesthesia Social History Smoking Status: Never smoker Second Hand Exposure: Yes (as child); Do You Dip or Chew Tobacco: No; Hx Alcohol Use: No Hx Substance Use: No Preferred Language: Danish Communication Ability: Effective Livestock Agent Required: No Beliefs That Will Affect Care: None Current Living Situation: Long-Term Current Living Situation Comment: Independent Living facility Other Information That Helps Us Care for You: No Feels Safe at Home: Yes Safety Concerns: Feels Safe At This Time Assistive Devices: Walker Review of Systems Constitutional: normal Eyes: normal Ear, Nose, Mouth, Throat: dysphgia Respiratory: no SOB Cardiovascular: Additional Comments: No CP Gastrointestinal: see above Genitourinary: no hematuria Musculoskeletal: myalgias, weakness Integumentary: no rashes Physical Exam Constitutional: Alert, examined in chair and bed, NAD ENMT: normal mucosa and moisture. no ulcers Neck: no adenopathy Respiratory: CTA b/l no wheezes Cardiovascular: reg, + s1 and s2 no murmurs Gastrointestinal (Abdomen): sot, nt nd + BS Musculoskeletal: hip flexor weakness as well as hip abductor and adductor weakness (4-/5) deltoid strength 5/5 biceps and tricep strength 4-/5 neck flexor strength 3+/5 valgus deformity of left knee noted crepitus on exam both knees normal ROM of both hips Skin: bruises noted on her forearms, no rashes Results & Data Vital Signs (Past 12 Hours) Vital Signs Temp Pulse Resp BP Pulse Ox O2 Del Method 01/18/25 14:39 36.4 C L 94 H 16 144/89 H 97 Room Air 01/18/25 06:49 36.6 C 81 16 142/87 H 96 Room Air Laboratory Results reviewed Diagnostic Findings reviewed
--- NOTE | 2025-01-18 16:01 | Hospitalist Progress Note ---
Date of Service January 18, 2025 Assessment & Plan (1) Rhabdomyolysis: (2) Severe alcohol use disorder: (3) Hypoglycemia: (4) Hypomagnesemia: Plan This patient is a 69-year-old woman with a H/O alcohol use disorder, osteoporosis, cervical and thoracic compression fractures, mild aortic stenosis, history of Tayler-en-Y gastric bypass, major depression who P/W with 1 week of muscle weakness and muscle soreness, especially her L lower extremity which led to a fall from standing. She had severe hypoglycemia episode a few weeks ago with BG 17 and was subsequently admitted -this was thought to be secondary to a combo of alcohol and eating poorly with dysphagia, nausea/vomiting, chronic intermittent diarrhea, Tayler-en-Y gastric bypass. Found to have anastomotic ulcer at GJ anastomosis, esophageal dysmotility. #Lower extremity weakness/pain/rhabdomyolysis-considered myopathy, PMR, cervical myelopathy, myasthenia gravis, MS, stroke although symptoms are not very consistent with stroke. Obtained further evaluation 01/16-01/17: MR cspine and MR brain both with contrast with no stroke, no demyelinating lesions, no cervical spinal stenosis ESR 8 and CRP 1.97 Vit D 29 near normal Phos was normal, mag mildly low 1.5 TSH normal Cosyntropin stim test was normal 01/17, peak cortisol >20 B1 B12 normal within the year Aldolase pending Consider Vitamin E and selenium CK very elevated at >5000, LDH elevated at 400. AST and ALT also elevated related to rhabdomyolysis MRI left femur ordered on 01/18 not consistent with myositis Appreciate rheumatology consultation-no suspicion for autoimmune myositis Rhabdomyolysis- possibly alcohol induced or medication related. No significant time on floor. Other myopathies are possible (viral, EtOH related, nutritional). Reviewed med list - not on statin or fibrate or other medications that are too suspicious, however, increased incidence of rhabdo reported with SSRIs and atypical antipsychotics (she is on sertraline and quetiapine). CK now trending downward with IV fluids -monitor CK, CMP qAM -monitor renal function - remains normal at this time, CK not high enough to cause renal injury at this point -UA with +heme but no pyuria -checked PTH and ionized calcium - both normal -PT and OT - rec SNF #Hypoglycemia in non-diabetic. Was related to alcoholism, poor oral intake because of vomiting, setting of gastric bypass -BG has been >100 for 24h of checks - stopped routine checks -cosyntropin stim test was normal # Pancreatic head cystic lesion/chronic pancreatitis/chronic diarrhea-pancreatic cyst incidental, noted on CT scan. MRI abdomen shows a simple cyst - probably a pseudocyst. Diarrhea improving now on pancreatic enzymes -Continue trial pancrelipase for possible pancreas exocrine insufficiency #Esophageal dysmotility/ulcer at GJ anastomosis/history of Tayler-en-Y -Continue carafate which she was not taking at home as it came in a large pill rather than liquid -increase PPI to 40 mg twice daily for recurrent ulcers - Avoid NSAIDs, aspirin and alcohol use # Severe alcohol use disorder, history of alcohol withdrawal-she reports that she has cut way down on her alcohol intake and drinks 1 serving of rum and coke every other night. No issues with alcohol withdrawal here - thiamine/folate supp - AWSS at risk protocol # hypomagnesemia -replaced and resolved - Follow magnesium level in the morning #Osteoporosis-given gastric ulcers, rheumatology recommends that she not be on Fosamax - Discontinue Fosamax at discharge and recommend follow-up with rheumatology for starting Prolia or Reclast DVT ppx: enox 40 sq Disposition-improving, needs SNF placement in the next 1-2 days Admission and Anticipated Discharge Date Admission Date: January 17, 2025 Subjective Patient reports overall feeling better today. Less weak and less pain in the left thigh. She was able to ambulate around the edge of the bed with a walker today which is an improvement. I discussed her care with rheumatology. Physical Exam Constitutional: WD/WN, vitals as above Respiratory: normal respiratory effort, lungs clear to auscultation Cardiovascular: Rate/Rhythm: regular rate and regular rhythm Heart Sounds: + murmur (2/6 ERICH at the RUSB) Gastrointestinal (Abdomen): normal bowel sounds, soft, nontender, no hepatosplenomegaly Musculoskeletal: no cyanosis or clubbing, extremities motor strength 5/5 Neurologic: 4+ out of 5 strength throughout lower ex tremities bilaterally, mild tenderness to palpation over left hamstring Psychiatric: A+Ox3, euthymic affect Results & Data Results & Data Vital Signs (Past 12 Hours) Vital Signs Temp Pulse Resp BP Pulse Ox O2 Del Method 01/18/25 14:39 36.4 C L 94 H 16 144/89 H 97 Room Air 01/18/25 06:49 36.6 C 81 16 142/87 H 96 Room Air Laboratory Results CBC, CMP, CK reviewed Diagnostic Findings MRI femur reviewed PG Care Time/CCT Total # of Minutes Spent Total Time Spent with Patient: Total time spent is greater than 50% in coordination of care (as documented) at patient's floor/unit and/or counseling patient: Coding Level of Care Code 23865 SUB INP/OBS CARE 3/50MIN Diagnoses Rhabdomyolysis M62.82 Severe alcohol use disorder F10.20 Hypoglycemia E16.2 Hypomagnesemia E83.42
[2025-01-19 08:32] LABS: Hematocrit (blood only) 30.5 % (37.0-47.0); Hemoglobin 10.1 g/dl (12.0-16.0); Immature Granulocytes # (auto) 0.03 K/uL (0.01-0.20); Immature Granulocytes % (auto) 0.4 %; Mean Corpuscular Hemoglobin 33.9 pg (25.0-34.0); Mean Corpuscular Volume 102.3 fL (80.0-100.0); Platelet Count 281 K/uL (130-400); RDW Standard Deviation 48.3 fL (36.4-46.3); Red Blood Count 2.98 M/uL (4.20-5.40); White Blood Count 7.13 K/ul (4.8-10.8)
[2025-01-19 08:43] LABS: Alanine Aminotransferase 64.0 U/L (7-52); Albumin Globulin Ratio 1.1 (0.9-2); Alkaline Phosphatase 75.0 U/L (34-104); Anion Gap 5.0 (3-11); Bilirubin,Total 0.2 mg/dl (0.2-1.0); Blood Urea Nitrogen 16.0 mg/dl (6-23); Calcium 8.4 mg/dl (8.6-10.3); Carbon Dioxide 27.0 mmol/L (21-32); Chloride 109.0 mmol/L (98-107); Creatine Kinase 466.0 U/L (26-192); Creatinine Clr Calc Pharmacy 80.8 ml/min; Globulin 2.4 gm/dl (2.5-4.0); Glucose 88.0 mg/dl (70-99(Fasting)); Magnesium 1.4 mg/dl (1.7-2.4); Potassium 4.0 mmol/L (3.5-5.1); Sodium 141.0 mmol/L (136-145); Total Protein 5.1 gm/dl (6.0-8.3)
[2025-01-19] MEDS: MAGNESIUM SULFATE / D5W 1 GM/100 ML BAG IV SCH (10:26)
[2025-01-19] MEDS ORDERED: MELATONIN 3 MG TAB PO PRN (11:16)
--- NOTE | 2025-01-19 15:04 | Hospitalist Progress Note ---
Date of Service January 19, 2025 Assessment & Plan (1) Rhabdomyolysis: (2) Severe alcohol use disorder: (3) Hypoglycemia: (4) Hypomagnesemia: Plan This patient is a 69-year-old woman with a H/O alcohol use disorder, osteoporosis, cervical and thoracic compression fractures, mild aortic stenosis, history of Tayler-en-Y gastric bypass, major depression who P/W with 1 week of muscle weakness and muscle soreness, especially her L lower extremity which led to a fall from standing. She had severe hypoglycemia episode a few weeks ago with BG 17 and was subsequently admitted -this was thought to be secondary to a combo of alcohol and eating poorly with dysphagia, nausea/vomiting, chronic intermittent diarrhea, Tayler-en-Y gastric bypass. Found to have anastomotic ulcer at GJ anastomosis, esophageal dysmotility. #Lower extremity weakness/pain/rhabdomyolysis-considered myopathy, PMR, cervical myelopathy, myasthenia gravis, MS, stroke although symptoms are not very consistent with stroke. Obtained further evaluation 01/16-01/17: MR cspine and MR brain both with contrast with no stroke, no demyelinating lesions, no cervical spinal stenosis ESR 8 and CRP 1.97 Vit D 29 near normal Phos was normal, mag mildly low 1.5 TSH normal Cosyntropin stim test was normal 01/17, peak cortisol >20 B1 B12 normal within the year PTH and ionized calcium - both normal Aldolase pending UA with +heme but no pyuria Consider Vitamin E and selenium CK very elevated at >5000, LDH elevated at 400. AST and ALT also elevated related to rhabdomyolysis MRI left femur ordered on 01/18 not consistent with myositis Appreciate rheumatology consultation-no suspicion for autoimmune myositis Rhabdomyolysis- possibly alcohol induced or medication related. No significant time on floor. Other myopathies are possible (viral, EtOH related, nutritional). Reviewed med list - not on statin or fibrate or other medications that are too suspicious, however, increased incidence of rhabdo reported with SSRIs and atypical antipsychotics (she is on sertraline and quetiapine). CK continues to be trending downward with IV fluids, weakness and pain improving -monitor CK, CMP qAM -monitor renal function - remains normal at this time, CK not high enough to cause renal injury at this point -PT and OT - rec SNF #Hypoglycemia in non-diabetic. Was related to alcoholism, poor oral intake because of vomiting, setting of gastric bypass -BG has been >100 for 24h of checks - stopped routine checks -cosyntropin stim test was normal # Pancreatic head cystic lesion/chronic pancreatitis/chronic diarrhea-pancreatic cyst incidental, noted on CT scan. MRI abdomen shows a simple cyst - probably a pseudocyst. Diarrhea improving now on pancreatic enzymes -Continue trial pancrelipase for possible pancreas exocrine insufficiency #Esophageal dysmotility/ulcer at GJ anastomosis/history of Tayler-en-Y -Continue carafate which she was not taking at home as it came in a large pill rather than liquid -increase PPI to 40 mg twice daily for recurrent ulcers - Avoid NSAIDs, aspirin and alcohol use #Anemia-hemoglobin mildly low at 10-11, macrocytic. Recent B12 and folate normal. No iron studies checked in 2 years. Likely iron deficient secondary to gastric bypass surgery. Macrocytic due to alcohol use - Check iron studies in the morning replace with IV iron if low - Follow CBC # Severe alcohol use disorder, history of alcohol withdrawal-she reports that she has cut way down on her alcohol intake and drinks 1 serving of rum and coke every other night. No issues with alcohol withdrawal here - thiamine/folate supp - AWSS at risk protocol #Depression/insomnia-continue home Seroquel, hydroxyzine, sertraline - Add melatonin at nighttime for sleep # hypomagnesemia -replaced and resolved but now low again at 1.4. Likely secondary to PPI use - Replace with 2 g of IV magnesium and start magnesium oxide 400 Mg p.o. twice daily - Follow magnesium level in the morning #Osteoporosis-given gastric ulcers, rheumatology recommends that she not be on Fosamax - Discontinue Fosamax at discharge and recommend follow-up with rheumatology for starting Prolia or Reclast DVT ppx: enox 40 sq Disposition-improving, needs SNF placement-medically stable for discharge, awaiting placement Admission and Anticipated Discharge Date Admission Date: January 17, 2025 Subjective Feeling better, less pain in feels strength is improving. Is moving bowels once daily. Physical Exam Constitutional: WD/WN, vitals as above Respiratory: normal respiratory effort, lungs clear to auscultation Cardiovascular: Rate/Rhythm: regular rate and regular rhythm Heart Sounds: + murmur (2/6 ERICH at the RUSB) Gastrointestinal (Abdomen): normal bowel sounds, soft, nontender, no hepatosplenomegaly Musculoskeletal: no cyanosis or clubbing, extremities motor strength 5/5 Psychiatric: A+Ox3, euthymic affect Results & Data Results & Data Vital Signs (Past 12 Hours) Vital Signs Temp Pulse Resp BP Pulse Ox O2 Del Method 01/19/25 07:36 36.5 C 85 17 152/90 H 96 Room Air Laboratory Results CBC, CMP, magnesium, CK reviewed PG Care Time/CCT Total # of Minutes Spent Total Time Spent with Patient: Total time spent is greater than 50% in coordination of care (as documented) at patient's floor/unit and/or counseling patient: Coding Level of Care Code 52660 SUB INP/OBS CARE 2/35MIN Diagnoses Rhabdomyolysis M62.82 Severe alcohol use disorder F10.20 Hypoglycemia E16.2 Hypomagnesemia E83.42
[2025-01-19] MEDS: MAGNESIUM OXIDE 400 MG TAB PO SCH (22:12)
[2025-01-20 11:36] LABS: Hematocrit (blood only) 31.7 % (37.0-47.0); Hemoglobin 10.6 g/dl (12.0-16.0); Immature Granulocytes # (auto) 0.03 K/uL (0.01-0.20); Immature Granulocytes % (auto) 0.4 %; Mean Corpuscular Hemoglobin 34.1 pg (25.0-34.0); Mean Corpuscular Volume 101.9 fL (80.0-100.0); Platelet Count 293 K/uL (130-400); RDW Standard Deviation 48.4 fL (36.4-46.3); Red Blood Count 3.11 M/uL (4.20-5.40); White Blood Count 7.44 K/ul (4.8-10.8)
[2025-01-20 11:54] LABS: Alanine Aminotransferase 56.0 U/L (7-52); Albumin Globulin Ratio 1.1 (0.9-2); Alkaline Phosphatase 80.0 U/L (34-104); Anion Gap 7.0 (3-11); Bilirubin,Total 0.2 mg/dl (0.2-1.0); Blood Urea Nitrogen 17.0 mg/dl (6-23); Calcium 8.3 mg/dl (8.6-10.3); Carbon Dioxide 24.0 mmol/L (21-32); Chloride 107.0 mmol/L (98-107); Creatine Kinase 307.0 U/L (26-192); Creatinine Clr Calc Pharmacy 82.1 ml/min; Globulin 2.7 gm/dl (2.5-4.0); Glucose 121.0 mg/dl (70-99(Fasting)); Iron 41.0 mcg/dl (35-150); Magnesium 1.6 mg/dl (1.7-2.4); Potassium 3.9 mmol/L (3.5-5.1); Sodium 138.0 mmol/L (136-145); Total Iron Binding Cap Calc 242.0 mcg/dl (250-450); Total Protein 5.6 gm/dl (6.0-8.3); Transferrin 173.0 mg/dl (200-360); Transferrin (FE) Percent Satur 17.0 % (15-50)
[2025-01-20 12:12] LABS: Ferritin 107.4 ng/ml (8-388)
[2025-01-20] MEDS: MAGNESIUM SULFATE / D5W 1 GM/100 ML BAG IV ONE (14:02)
--- NOTE | 2025-01-20 14:06 | Hospitalist Progress Note ---
Date of Service January 20, 2025 Assessment & Plan (1) Rhabdomyolysis: (2) Severe alcohol use disorder: (3) Hypoglycemia: (4) Hypomagnesemia: Plan This patient is a 69-year-old woman with a H/O alcohol use disorder, osteoporosis, cervical and thoracic compression fractures, mild aortic stenosis, history of Tayler-en-Y gastric bypass, major depression who P/W with 1 week of muscle weakness and muscle soreness, especially her L lower extremity which led to a fall from standing. She had severe hypoglycemia episode a few weeks ago with BG 17 and was subsequently admitted -this was thought to be secondary to a combo of alcohol and eating poorly with dysphagia, nausea/vomiting, chronic intermittent diarrhea, Tayler-en-Y gastric bypass. Found to have anastomotic ulcer at GJ anastomosis, esophageal dysmotility. #Lower extremity weakness/pain/rhabdomyolysis-considered myopathy, PMR, cervical myelopathy, myasthenia gravis, MS, stroke although symptoms are not very consistent with stroke. Obtained further evaluation 01/16-01/17: MR cspine and MR brain both with contrast with no stroke, no demyelinating lesions, no cervical spinal stenosis ESR 8 and CRP 1.97 Vit D 29 near normal Phos was normal, mag low 1.5 TSH normal Cosyntropin stim test was normal 01/17, peak cortisol >20 B1 B12 normal within the year PTH and ionized calcium - both normal Aldolase elevated at 10 UA with +heme but no pyuria Consider Vitamin E and selenium CK very elevated at >5000, LDH elevated at 400. AST and ALT also elevated related to rhabdomyolysis MRI left femur ordered on 01/18 not consistent with myositis Appreciate rheumatology consultation-no suspicion for autoimmune myositis Rhabdomyolysis- possibly alcohol induced or medication related. No significant time on floor. Other myopathies are possible (viral, EtOH related, nutritional). Reviewed med list - not on statin or fibrate or other medications that are too suspicious, however, increased incidence of rhabdo reported with SSRIs and atypical antipsychotics (she is on sertraline and quetiapine). CK continues to be trending downward with IV fluids, weakness and pain improving -no further labs needed during hospitalization as is much improved -PT and OT - rec SNF #Hypoglycemia in non-diabetic. Was related to alcoholism, poor oral intake because of vomiting, setting of gastric bypass -BG has been >100 for 24h of checks - stopped routine checks -cosyntropin stim test was normal # Pancreatic head cystic lesion/chronic pancreatitis/chronic diarrhea-pancreatic cyst incidental, noted on CT scan. MRI abdomen shows a simple cyst - probably a pseudocyst. Diarrhea improving now on pancreatic enzymes -Continue trial pancrelipase for possible pancreas exocrine insufficiency #Esophageal dysmotility/ulcer at GJ anastomosis/history of Tayler-en-Y -Continue carafate which she was not taking at home as it came in a large pill rather than liquid -increase PPI to 40 mg twice daily for recurrent ulcers - Avoid NSAIDs, aspirin and alcohol use #Anemia-hemoglobin mildly low at 10-11, macrocytic. Recent B12 and folate normal. Iron studies here with trans sat low at 17%, ferritin normal. Likely iron deficient secondary to gastric bypass surgery. Macrocytic due to alcohol use - give IV iron x 1 - Follow CBC as putpt # Severe alcohol use disorder, history of alcohol withdrawal-she reports that she has cut way down on her alcohol intake and drinks 1 serving of rum and coke every other night. No issues with alcohol withdrawal here - thiamine/folate/MVI-move timing to lunch to avoid to many pills in AM - AWSS at risk protocol #Depression/insomnia-continue home Seroquel, hydroxyzine, sertraline - Added melatonin at nighttime for sleep # hypomagnesemia -replaced and resolved but now low again but improving at 1.6. Likely secondary to PPI use - Replace with 1 g of IV magnesium and continue magnesium oxide 400 Mg p.o. twice daily - Follow magnesium level at SNF #Osteoporosis-given gastric ulcers, rheumatology recommends that she not be on Fosamax - Discontinue Fosamax at discharge and recommend follow-up with rheumatology for starting Prolia or Reclast DVT ppx: enox 40 sq Disposition-improving, needs SNF placement-medically stable for discharge, awaiting placement Admission and Anticipated Discharge Date Admission Date: January 17, 2025 Subjective Pt reports overall feeling better, stronger but RLE now feeling a little weaker than LLE. Still with some pain in left hamstring region She also requests some of her pills be moved to mid day so not too many pills all in the AM. Is worried about her elevated BPs and says that her doctor recently increased her lisinopril to 20mg Physical Exam Constitutional: WD/WN, vitals as above Respiratory: normal respiratory effort, lungs clear to auscultation Cardiovascular: Rate/Rhythm: regular rate and regular rhythm Heart Sounds: + murmur (2/6 ERICH at the [facility]) Gastrointestinal (Abdomen): normal bowel sounds, soft, nontender, no hepatosplenomegaly Musculoskeletal: 4+/5 strength in bilat LEs throughout Psychiatric: A+Ox3, euthymic affect Results & Data Results & Data Vital Signs (Past 12 Hours) Vital Signs Temp Pulse Resp BP BP Pulse Ox O2 Del Method 01/20/25 12:54 121/82 01/20/25 07:07 36.7 C 82 18 150/92 H 96 Room Air Laboratory Results CBC, CMP, CK, iron studies, aldolase, mag reviewed PG Care Time/CCT Total # of Minutes Spent Total Time Spent with Patient: Total time spent is greater than 50% in coordination of care (as documented) at patient's floor/unit and/or counseling patient: Coding Level of Care Code 11182 SUB INP/OBS CARE 07/31MIN Diagnoses Rhabdomyolysis M62.82 Severe alcohol use disorder F10.20 Hypoglycemia E16.2 Hypomagnesemia E83.42
[2025-01-20] MEDS: IRON SUCROSE 300 MG in SODIUM CHLORIDE 0.9% 250 ML IV ONE (14:25)
[2025-01-21] MEDS: FOLIC ACID 1 MG TAB PO SCH (11:24)
[2025-01-21] MEDS: MULTIVITAMIN TAB PO SCH (11:24)
[2025-01-21] MEDS: THIAMINE HCL 100 MG TAB PO SCH (11:25)
[2025-01-21] MEDS: IRON SUCROSE 300 MG in SODIUM CHLORIDE 0.9% 250 ML IV ONE (13:01)
--- NOTE | 2025-01-21 17:19 | Hospitalist Progress Note ---
Date of Service January 21, 2025 Assessment & Plan (1) Rhabdomyolysis: (2) Severe alcohol use disorder: (3) Hypoglycemia: (4) Hypomagnesemia: Plan This patient is a 69-year-old woman with a H/O alcohol use disorder, osteoporosis, cervical and thoracic compression fractures, mild aortic stenosis, history of Tayler-en-Y gastric bypass, major depression who P/W with 1 week of muscle weakness and muscle soreness, especially her L lower extremity which led to a fall from standing. She had severe hypoglycemia episode a few weeks ago with BG 17 and was subsequently admitted -this was thought to be secondary to a combo of alcohol and eating poorly with dysphagia, nausea/vomiting, chronic intermittent diarrhea, Tayler-en-Y gastric bypass. Found to have anastomotic ulcer at GJ anastomosis, esophageal dysmotility. #Lower extremity weakness/pain/rhabdomyolysis-considered myopathy, PMR, cervical myelopathy, myasthenia gravis, MS, stroke although symptoms are not very consistent with stroke. Obtained further evaluation 01/16-01/17: MR cspine and MR brain both with contrast with no stroke, no demyelinating lesions, no cervical spinal stenosis ESR 8 and CRP 1.97 Vit D 29 near normal Phos was normal, mag low 1.5 TSH normal Cosyntropin stim test was normal 01/17, peak cortisol >20 B1 B12 normal within the year PTH and ionized calcium - both normal Aldolase elevated at 10 UA with +heme but no pyuria Consider Vitamin E and selenium CK very elevated at >5000, LDH elevated at 400. AST and ALT also elevated related to rhabdomyolysis MRI left femur ordered on 01/18 not consistent with myositis Appreciate rheumatology consultation-no suspicion for autoimmune myositis Rhabdomyolysis- possibly alcohol induced or medication related. No significant time on floor. Other myopathies are possible (viral, EtOH related, nutritional). Reviewed med list - not on statin or fibrate or other medications that are too suspicious, however, increased incidence of rhabdo reported with SSRIs and atypical antipsychotics (she is on sertraline and quetiapine). CK trended downward to normal with IV fluids, weakness and pain improving -no further labs needed during hospitalization as is much improved -PT and OT - rec SNF #Hypoglycemia in non-diabetic. Was related to alcoholism, poor oral intake because of vomiting, setting of gastric bypass -BG has been >100 for 24h of checks - stopped routine checks -cosyntropin stim test was normal # Pancreatic head cystic lesion/chronic pancreatitis/chronic diarrhea-pancreatic cyst incidental, noted on CT scan. MRI abdomen shows a simple cyst - probably a pseudocyst. Diarrhea improving now on pancreatic enzymes -Continue trial pancrelipase for possible pancreas exocrine insufficiency #Esophageal dysmotility/ulcer at GJ anastomosis/history of Tayler-en-Y -Continue carafate which she was not taking at home as it came in a large pill rather than liquid-total 2 week course -increased PPI to 40 mg twice daily for recurrent ulcers - Avoid NSAIDs, aspirin and alcohol use #Anemia-hemoglobin mildly low at 10-11, macrocytic. Recent B12 and folate normal. Iron studies here with trans sat low at 17%, ferritin normal. Likely iron deficient secondary to gastric bypass surgery. Macrocytic due to alcohol use - gave IV iron x 2 doses - Follow CBC as putpt # Severe alcohol use disorder, history of alcohol withdrawal-she reports that she has cut way down on her alcohol intake and drinks 1 serving of rum and coke every other night. No issues with alcohol withdrawal here - thiamine/folate/MVI-move timing to lunch to avoid to many pills in AM - AWSS at risk protocol #Depression/insomnia-continue home Seroquel, hydroxyzine, sertraline - Added melatonin at nighttime for sleep # hypomagnesemia -replaced. Likely secondary to PPI use - continue magnesium oxide 400 Mg p.o. twice daily - Follow magnesium level at SNF #Osteoporosis-given gastric ulcers, rheumatology recommends that she not be on Fosamax - Discontinue Fosamax at discharge and recommend follow-up with rheumatology for starting Prolia or Reclast DVT ppx: enox 40 sq Disposition-improving, needs SNF placement-medically stable for discharge, awaiting placement-plan for tomorrow Admission and Anticipated Discharge Date Admission Date: January 17, 2025 Subjective feeling weak in legs, had trouble walking back from the bathroom overnight Physical Exam Constitutional: WD/WN, vitals as above Respiratory: normal respiratory effort, lungs clear to auscultation Cardiovascular: Rate/Rhythm: regular rate and regular rhythm Heart Sounds: + murmur (2/6 ERICH at the [facility]) Gastrointestinal (Abdomen): normal bowel sounds, soft, nontender, no hepatosp lenomegaly Musculoskeletal: no cyanosis or clubbing, extremities motor strength 5/5 Psychiatric: A+Ox3, euthymic affect Results & Data Results & Data Vital Signs (Past 12 Hours) Vital Signs Temp Pulse Resp BP Pulse Ox O2 Del Method 01/21/25 14:50 36.7 C 84 17 147/88 H 95 Room Air 01/21/25 13:36 36.8 C 89 17 132/85 96 Room Air 01/21/25 12:57 36.5 C 97 H 17 130/84 95 Room Air 01/21/25 07:23 36.7 C 83 16 149/87 H 94 Room Air Laboratory Results no labs PG Care Time/CCT Total # of Minutes Spent Total Time Spent with Patient: Total time spent is greater than 50% in coordination of care (as documented) at patient's floor/unit and/or counseling patient: Coding Level of Care Code 40501 SUB INP/OBS CARE 07/31MIN Diagnoses Rhabdomyolysis M62.82 Severe alcohol use disorder F10.20 Hypoglycemia E16.2 Hypomagnesemia E83.42
[2025-01-22 07:35] VITALS: BP 158/89; RESP 16; TEMP 98.1; O2SAT 96
--- NOTE | 2025-01-22 07:35 | Discharge Summary ---
Date of Service January 22, 2025 Admission HPI Per Admitting Provider Patient is a 69-year-old female with a past medical history including vitamin deficiency, multiple vertebral fractures, aortic stenosis, history of Tayler-en-Y gastric bypass, major depression, and severe alcohol use disorder. She presents to the emergency department with complaint concerns regarding left leg discomfort and weakness, that she feels is in the muscle, worsening over the past several days. Principal Diagnosis Rhabdomyolysis Discharge Exam Gen: NAD, WD/WN HEENT: NCAT, normal conjunctiva, anicteric sclera, MMM CV: RRR, no m/r/g appreciated, no LE edema Resp: CTAB, symmetrical chest rise, breathing non-labored Abd: Soft, NT/ND, +BS, no HSM MSK: Full ROM, no gross deformities on inspection Skin: Warm, dry, well-perfused, no rashes appreciated Neuro: AOx3, CN II-XII grossly intact, str 5/5 x 4, SILT in b/l LE Discharge Data Allergies Allergy/AdvReac Type Severity Reaction Status Date / Time No Known Allergies Allergy Verified 01/15/25 15:51 Consultations 01/15/25 15:43 ED Decision to Admit Stat 01/18/25 07:36 Consult Rheumatology Routine Ordered Studies 01/15/25 14:13 CT head/brain wo con Stat CT lumbar spine wo con Stat 01/15/25 15:47 US venous duplex leg [US venous doppler LE LT] Stat 01/15/25 17:33 MRI Abdomen [MR abdomen wo/w con] Routine 01/16/25 14:01 MR brain wo/w con Urgent MR cervical spine wo/w con Urgent 01/18/25 07:43 MR femur LT wo/w con Routine Hospital Course (1) Rhabdomyolysis: (2) Severe alcohol use disorder: (3) Hypoglycemia: (4) Hypomagnesemia: Plan This patient is a 69-year-old woman with a H/O alcohol use disorder, osteoporosis, cervical and thoracic compression fractures, mild aortic stenosis, history of Tayler-en-Y gastric bypass, major depression who P/W with 1 week of muscle weakness and muscle soreness, especially her L lower extremity which led to a fall from standing. She had severe hypoglycemia episode a few weeks ago with BG 17 and was subsequently admitted -this was thought to be secondary to a combo of alcohol and eating poorly with dysphagia, nausea/vomiting, chronic intermittent diarrhea, Tayler-en-Y gastric bypass. Found to have anastomotic ulcer at GJ anastomosis, esophageal dysmotility. #Lower extremity weakness/pain/rhabdomyolysis - Broad ddx considered, including myopathy, PMR, cervical myelopathy, myasthenia gravis, MS, stroke - MR c-spine and MR brain both with contrast showed no evidence of stroke, no demyelinating lesions, no cervical spinal stenosis - MRI left femur ordered on 01/18 not consistent with myositis - ESR 8 and CRP 1.97 - Vit D 29 near normal. B1 B12 tested within the year were normal - TSH wnl. Cosyntropin stim test was normal 01/17, peak cortisol >20. PTH and iCa normal - Phos normal but mag low 1.5 - Aldolase elevated at 10 - UA +heme but no pyuria - CK very elevated at >5000, LDH elevated at 400. AST and ALT also elevated related to rhabdomyolysis - Suspect Rhabdomyolysis to be alcohol induced or medication related. No significant time on floor. Reviewed med list - not on statin or fibrate or other medications that are too suspicious; however, increased incidence of rhabdo reported with SSRIs and atypical antipsychotics and pt is on both (sertraline and quetiapine) - CK trended downward to normal with IV fluids, weakness and pain steadily improving by discharge - Seen by PT and OT during admission, who rec SNF #Hypoglycemia in non-diabetic. Was related to alcoholism, poor oral intake because of vomiting, setting of gastric bypass - BG has been >100 for 24h of checks - stopped routine checks - cosyntropin stim test was normal # Pancreatic head cystic lesion/chronic pancreatitis/chronic diarrhea-pancreatic cyst incidental, noted on CT scan. MRI abdomen shows a simple cyst - probably a pseudocyst. Diarrhea improving now on pancreatic enzymes - Continue trial pancrelipase for possible pancreas exocrine insufficiency #Esophageal dysmotility/ulcer at GJ anastomosis/history of Tayler-en-Y - Continue carafate which she was not taking at home as it came in a large pill rather than liquid Will need total 2 week course - Increased PPI to 40 mg BID for recurrent ulcers - Avoid NSAIDs, aspirin and alcohol use #Anemia-hemoglobin mildly low at 10-11, macrocytic. Recent B12 and folate normal. Iron studies here with trans sat low at 17%, ferritin normal. Likely iron deficient secondary to gastric bypass surgery. Macrocytic due to alcohol use - gave IV iron x 2 doses - Will need to recheck CBC after discharge # Severe alcohol use disorder, history of alcohol withdrawal-she reports that she has cut way down on her alcohol intake and drinks 1 serving of rum and coke every other night. No issues with alcohol withdrawal here - thiamine/folate/MVI-move timing to lunch to avoid to many pills in AM - AWSS at risk protocol was utilized #Depression/insomnia-continue home Seroquel, hydroxyzine, sertraline - Added melatonin at nighttime for sleep # hypomagnesemia -replaced. Likely secondary to PPI use - continue magnesium oxide 400 Mg p.o. twice daily - Will need to follow magnesium level at SNF #Osteoporosis-given gastric ulcers, rheumatology recommends that she not be on Fosamax - Discontinue Fosamax at discharge and recommend follow-up with rheumatology for starting Prolia or Reclast VTE ppx: lovenox 40 sq Total Time Total Time Spent Total Time Spent (In Minutes): See attending documentation Discharge Plan Discharge Items Patient Disposition: [facility] Reason For Visit: RHABDOMYOLYSIS Discharge Diagnosis: rhabdomyolysis Condition on Discharge: Fair Activity: Per Instructions section Non-emergency contact: Primary Care Provider Call non-emergency contact if: your symptoms worsen and your pain is not controlled Follow-up/Referrals: Emily Diehl PA-C [Primary Care Provider] - Diet: Regular Addtl Attending Provider Instructions: This patient is a 69-year-old woman with a H/O alcohol use disorder, osteoporosis, cervical and thoracic compression fractures, mild aortic stenosis, history of Tayler-en-Y gastric bypass, major depression who P/W with 1 week of muscle weakness and muscle soreness, especially her L lower extremity which led to a fall from standing. She had severe hypoglycemia episode a few weeks ago with BG 17 and was subsequently admitted -this was thought to be secondary to a combo of alcohol and eating poorly with dysphagia, nausea/vomiting, chronic intermittent diarrhea, Tayler-en-Y gastric bypass. Found to have anastomotic ulcer at GJ anastomosis, esophageal dysmotility. #Lower extremity weakness/pain/rhabdomyolysis - Broad ddx considered, including myopathy, PMR, cervical myelopathy, myasthenia gravis, MS, stroke - MR c-spine and MR brain both with contrast showed no evidence of stroke, no demyelinating lesions, no cervical spinal stenosis - MRI left femur ordered on 01/18 not consistent with myositis - ESR 8 and CRP 1.97 - Vit D 29 near normal. B1 B12 tested within the year were normal - TSH wnl. Cosyntropin stim test was normal 01/17, peak cortisol >20. PTH and iCa normal - Phos normal but mag low 1.5 - Aldolase elevated at 10 - UA +heme but no pyuria - CK very elevated at >5000, LDH elevated at 400. AST and ALT also elevated related to rhabdomyolysis - Suspect Rhabdomyolysis to be alcohol induced or medication related. No significant time on floor. Reviewed med list - not on statin or fibrate or other medications that are too suspicious; however, increased incidence of r habdo reported with SSRIs and atypical antipsychotics and pt is on both (sertraline and quetiapine) - CK trended downward to normal with IV fluids, weakness and pain steadily improving by discharge - Seen by PT and OT during admission, who rec SNF #Hypoglycemia in non-diabetic. Was related to alcoholism, poor oral intake because of vomiting, setting of gastric bypass - BG has been >100 for 24h of checks - stopped routine checks - cosyntropin stim test was normal # Pancreatic head cystic lesion/chronic pancreatitis/chronic diarrhea-pancreatic cyst incidental, noted on CT scan. MRI abdomen shows a simple cyst - probably a pseudocyst. Diarrhea improving now on pancreatic enzymes - Continue trial pancrelipase for possible pancreas exocrine insufficiency #Esophageal dysmotility/ulcer at GJ anastomosis/history of Tayler-en-Y - Continue carafate which she was not taking at home as it came in a large pill rather than liquid Will need total 2 week course - Increased PPI to 40 mg BID for recurrent ulcers - Avoid NSAIDs, aspirin and alcohol use #Anemia-hemoglobin mildly low at 10-11, macrocytic. Recent B12 and folate normal. Iron studies here with trans sat low at 17%, ferritin normal. Likely iron deficient secondary to gastric bypass surgery. Macrocytic due to alcohol use - gave IV iron x 2 doses - Will need to recheck CBC after discharge # Severe alcohol use disorder, history of alcohol withdrawal-she reports that she has cut way down on her alcohol intake and drinks 1 serving of rum and coke every other night. No issues with alcohol withdrawal here - thiamine/folate/MVI-move timing to lunch to avoid to many pills in AM - AWSS at risk protocol was utilized #Depression/insomnia-continue home Seroquel, hydroxyzine, sertraline - Added melatonin at nighttime for sleep # hypomagnesemia -replaced. Likely secondary to PPI use - continue magnesium oxide 400 Mg p.o. twice daily - Will need to follow magnesium level at SNF #Osteoporosis-given gastric ulcers, rheumatology recommends that she not be on Fosamax - Discontinue Fosamax at discharge and recommend follow-up with rheumatology for starting Prolia or Reclast VTE ppx: lovenox 40 sq Pending Studies at Discharge: No Stand-Alone Forms: My [facility] Skilled Items Patient informed of condition?: Yes DNR: No Discharge Level of Care: Skilled Communicable Disease: No Discharge Prognosis: Improving Lines: None Urinary Catheter: No Medications and DC Order Prescriptions: New pantoprazole 40 mg Tablet,Delayed Release (Dr/Ec) 40 mg PO BID Qty: 60 0RF lisinopril 20 mg Tablet 20 mg PO HS Qty: 30 0RF Creon 36,000-114,000- 180,000 unit Capsule,Delayed Release(Dr/Ec) 3 cap PO AC Qty: 270 0RF sucralfate 100 mg/mL Suspension 1 g PO QID 10 Days Qty: 400 0RF magnesium oxide 400 mg (241.3 mg magnesium) Tablet 400 mg PO BID Qty: 60 0RF Continued multivitamin Tablet 1 tab PO DAILY Qty: 30 1RF quetiapine 100 mg tablet 100 mg PO HS Qty: 30 0RF acetaminophen [Tylenol Extra Strength] 500 mg Tablet 1,000 mg PO Q8H MDD 3 GRAMS APAP/24 HOURS PRN (Reason: pain or fever) Qty: 30 0RF ondansetron 4 mg tablet,disintegrating 4 mg PO Q6H PRN (Reason: nausea and vomiting) Qty: 10 0RF acyclovir [Zovirax] 5 % ointment 1 applic topical QID PRN (Reason: Secretions) Rx Instructions: apply until cold sores are resolved. valacyclovir 1 gram tablet 500 mg PO DAILY PRN (Reason: Cold Sores) hydroxyzine pamoate 100 mg capsule 150 mg PO HS lisinopril [Zestril] 5 mg tablet 10 mg PO HS Patient Comments: no longer taking 12/16/24 sertraline 100 mg tablet 100 mg PO HS Rx Instructions: TOTAL DOSE 150 MG--TAKES WITH 50 MG TAB. thiamine HCl (vitamin B1) 100 mg tablet 100 mg PO DAILY folic acid 1 mg tablet 1 mg PO HS sertraline 50 mg tablet 50 mg PO HS Rx Instructions: TOTAL DOSE 150 MG--TAKES WITH 100 MG TAB. hydrocodone-acetaminophen 5-325 mg Tablet 1 tab PO Q6H PRN (Reason: moderate-severe pain) Qty: 10 0RF Discontinued pantoprazole 20 mg tablet,delayed release (DR/EC) 20 mg PO HS alendronate 70 mg tablet 70 mg PO WK Rx Instructions: MONDAYS Discharge Orders: Discharge Order (Routine); Ordered 01/22/25 Ordered By: William Carter Admission Data Admit Date/Time: 01/17/25 16:59 Attending Provider: Kaity Mark Admit Provider: Brandon Hansen Primary Care Provider: Emily Diehl Other Providers: Brandon Hansen; Gabriela Jimenez [facility]; Marcelino Hernandez; [facility] Other Interventions: Discharge Summary Assessment (RN) Last Done: 01/22/25 09:31 Supervising Physician Co-Signing Physician Notes I personally examined the patient and verified all galo points of history and exam, discussed case, and agree with decision making with Dr. Carter with the following additions/exceptions: S-Pt feeling better but still weak in lower extremities. N CP,SOB. 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 Had extensive workup while admitted Improved with IVFs. Needs rehab, stable for dc I spent 35 min in care of discharging this pt including discharge paperwork and discussion with the patient Resident Activity Tracking Resident Involvement: Resident Care Provided Care Provided: Adult Hospital Medicine
[2025-01-22 09:32] VITALS: PULSE 85
--- NOTE | 2025-01-22 16:01 | Billing Data ---
Date of Service January 22, 2025 Coding Level of Care Code 40684 INP/OBS DISCH >30 MIN
== END 2025-01-22 10:27 | DRG 558 ==
LOC: 3N 14:00 → ED 14:00 → SUATTDRO 17:33 → 3N 18:46 → SUATTDRO 01-17 16:59